=== PATIENT | female | born 2000 | race Caucasian/White ===

== ENCOUNTER 2019-07-22 19:17 | Emergency (ER) | payer BC, OTHER ==
[~2019-07-22] VITALS: Ht 165 cm; Wt 72.7 kg
[2019-07-22 19:20] VITALS: BP 145/98
--- OUTSIDE RECORDS SUMMARY | 2019-07-22 19:24 | XMS REPORT | Clinical Summary ---
Author Author Yovanny, Clarisa Christopher Organization [employer] Information Address Unknown Phone Unavailable Allergies, Adverse Reactions, Alerts Allergy Name Reaction Description Start Date Severity Status Pr ovider BENZACLIN Critical Active Uriel BOYD Conditions or Problems Problem Name Problem Code Onset Date Status Entry Date Provider Comment Standard Description Annotate ACUTE BRONCHITIS 466.0 Resolved Adrián Varghese MD Acute bronchitis FAMILY HISTORY OF HYPERTENSION V17.4 Resolved 2 Adrián Varghese MD Family history of other cardiovascular diseases OTHER SPECIFIED VIRAL WARTS 078.19 Active Adrián Varghese MD Other specified viral warts VIRAL INFECTION 079.99 Resolved Adrián Varghese MD Unspecified viral infection ACNE, CYSTIC 706.1 Active Adrián Varghese MD Other acne ALLERGIC REACTION 995.3 Active Uriel Moe A Allergy, unspecified, not elsewhere classified PALPITATIONS 785.1 Resolved Adrián Varghese MD Palpitations CERVICAL LYMPHADENOPATHY 785.6 Resolved Adrián Varghese MD Enlargement of lymph nodes CHEST DISCOMFORT 786.59 Resolved Adrián Varghese MD Other chest pain Pharyngitis-Acute 462 Inactive Adrián samuel MD Acute pharyngitis Headache 784.0 Resolved Adrián Varghese MD Headache Pharyngitis-Acute 462 Resolved Adrián samuel MD Acute pharyngitis Well Child Exam V20.2 Active Adrián Joseph Routine or child health check Myalgias 729.1 Resolved Adrián Varghese MD Myalgia and myositis, unspecified DEPRESSION 311 Inactive Adrián Varghese MD Depressive disorder, not elsewhere classified Depression, chronic, severe 296.33 Active Shannan Evans APRN Major depressive disorder, r ecurrent episode, severe degree, without mention of psychotic behavior B12 deficiency 266.2 Active Samreen Racelia Other B-complex deficiencies Muscle cramps 729.82 Resolved Adrián Varghese MD Cramp of limb Vaginal lesion 623.8 Resolved Adrián Joseph Other specified noninflammatory disorders of vagina Dermatitis, atopic 691.8 Active Cale Lopez [employer] Other atopic dermatitis and related conditions Contraceptive management V25.09 Active Madelin arguelles MD Encounter for other general counseling and advice on contraceptive management Std screening V74.5 Active Madelin Hatch MD Screening examination for venereal disease Preventive health care V70.0 Active Adrián hughes MD Routine general medical examination at a health care facility Major depressive disorder, recurrent, moderate 296.30 Active Adrián Varghese MD Major depressive dis order, recurrent episode, unspecified degree Body Mass Index 23.0-23.9 Adult Refinement 2017 Adrián Varghese MD Body Mass Index between 19-24, adult BMI 24-24.9 Active Adrián Varghese MD Body Mass Index between 19-24, adult Body Mass Index Percentile Pediatric 5th percentile to less than 85th percentile for age Active Adrián Varghese MD Body Mass Index, pediatric, 5th percentile to less than 85th percentile for age ADHD, 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 Adrián Varghese MD Attention deficit disorder of childhood with hyperactivity Restless legs 333.94 Active Adrián Varhgese MD Restless legs syndrome (RLS) Hyperlipidemia, borderline 272.4 Active 3 Adrián Varghese MD Other and unspecified hyperlipidemia FAMILY HISTORY OF HYPERTENSION ICD-V17.4 Inact sid Adrián Varghese MD VIRAL INFECTION ICD-079.99 Inactive Adrián hughes MD PALPITATIONS ICD-785.1 Inactive Adrián samuel MD CERVICAL LYMPHADENOPATHY ICD-785.6 Inactive Adrián Varghese MD CHEST DISCOMFORT ICD-786.59 Inactive Adrián leavitt MD Pharyngitis-Acute ICD-462 Inactive Adrián leavitt MD Headache ICD-784.0 Inactive Adrián Joseph Pharyngitis-Acute ICD-462 Inactive Adriná leavitt MD Myalgias ICD-729.1 Inactive Adrián Joseph Muscle cramps ICD-729.82 Inactive Adrián saldana MD Vaginal lesion ICD-623.8 Inactive Adrián saldana MD ACUTE BRONCHITIS ICD-466.0 Inactive Adrián hughes MD Medication List Medication Instructions Start Date Stop Date Generic Name NDC Status Provider Patient Instruction AMPHETAMINE-DEXTROAMPHETAMINE 20 MG ORAL TABLET take 1 tab p o qday for ADHD AMPHETAMINE-DEXTROAMPHETAMINE 96216701385 Active Adrián Varghese MD Active ULTRAM 50 MG ORAL TABLET 1 TAB PO Q 6 HRS PRN HEADACHE TRAMADOL HCL 56629032147 No Longer Active Adrián Varghese MD Acti ve METHYLPHENIDATE HCL ER (CD) 10 MG ORAL CAPSULE EXTENDE D RELEASE take 1 tab po qday for ADHD METHYLPHENIDATE HCL 05394573751 No Long er Active Adrián Varghese MD Active ABSORICA 20 MG ORAL CAPSULE 1 tablet daily ISOT RETINOIN 10721270738 No Longer Active Adrián Varghese MD Active VIIBRYD 20 MG ORAL TABLET take 1 tab po qday for mood VILAZODONE HCL 09467691212 Active PHILLIP Desir Active ESCITALOPRAM OXALATE 10 MG ORAL TABLET take 1 tab for mood 09/29 ESCITALOPRAM OXALATE 98666242968 No Longer Active Adrián Varghese MD Active BUSPIRONE HCL 7.5 MG ORAL TABLET PRN BUS PIRONE HCL 35740744574 No Longer Active Adrián Varghese MD Active PROZAC 20 MG ORAL CAPSULE PRN FLUOXETINE H CL 82634847489 No Longer Active Adrián Varghese MD Active SULFAMETHOXAZOLE-TRIMETHOPRIM 800-160 MG ORAL TABLET T QUINCY 1 TABLET BY MOUTH DAILY DIRECTED SULFAMETHOXAZOLE-TRIMETHOPRIM 07493170895 No Longer Active Madelin Hatch MD Active ACZONE 5 % EXTERNAL GEL apply once daily to face 5 DAPSONE 42482134934 No Longer Active Madelin Hatch MD Active PROZAC 10 MG ORAL CAPSULE Take 1 tab daily for 1 week. Then increase to 20mg daily. FLUOXETINE HCL 57925415702 No Longer Active Yulissa an Arell [employer] Active CITALOPRAM HYDROBROMIDE 20 MG ORAL TABLET take 1 tab p o qday for depresion and anxiety. CITALOPRAM HYDROBROMIDE 61605394640 No L onger Active Shannan Evans [employer] Active CYANOCOBALAMIN 1000 MCG/ML INJECTION SOLUTION 1 inject ion weekly for 1 month, than 1 a month for 2 months. recheck lab CYANOCO BALAMIN 97072237496 No Longer Active Shannan Evans [employer] Active ULTRAM 50 MG ORAL TABLET take 1 tab po q 6 hrs prn headache pain TRAMADOL HCL 82654243904 No Longer Active Adrián Varghese MD Active CLINDAMYCIN PHOSPHATE 2 % VAGINAL CREAM apply cream to acne BID prn CLINDAMYCIN PHOSPHATE 19223493445 No Longer Active Adrián dyson MD Active MINOCYCLINE HCL 100 MG ORAL CAPSULE take one po BID 13/11/25 MINOCYCLINE HCL 87594930603 No Longer Active Adrián Varghese MD A ctive TRI-SPRINTEC 0.18/0.215/0.25 MG-35 MCG ORAL TABLET 1 po qd a s directed NORGESTIM-ETH ESTRAD TRIPHASIC 05923988664 Active Madelin Hatch MD Active ZITHROMAX 250 MG ORAL TABLET 2 po today, then 1 po q days 2-5 20 12/07/06 AZITHROMYCIN 68027398580 No Longer Active Adrián Varghese MD Active ZITHROMAX 250 MG ORAL TABLET 2 po today, then 1 po q days 2-5 20 11/06/16 AZITHROMYCIN 88030133000 No Longer Active Adrián Varghese MD Active PREDNISONE 20 MG ORAL TABLET 2 tabs daily for 3 days, 1 tab daily for 3 days, 1/2 tab daily for 2 days PREDNISONE 40379039139 No Longer Active Adrián Varghese MD Active ZANTAC 75 75 MG ORAL TABLET take 1 po BID RANIT IDINE HCL 17843427930 No Longer Active Uriel BOYD Active BENZACLIN 1-5 % EXTERNAL GEL apply to skin BID prn for acne 2012 CLINDAMYCIN PHOS-BENZOYL PEROX 50506241437 No Longer Active Uriel BOYD Active BENZACLIN 1-5 % EXTERNAL GEL apply to skin BID prn for acne 2012 BENZACLIN 1-5 % EXTERNAL GEL 406023 CLINDAMYCIN PHOS-BE NZOYL PEROX Inactive MINOCYCLINE HCL 100 MG ORAL CAPSULE take one po BID 13/11/25 MINOCYCLINE HCL 100 MG ORAL CAPSULE 915748 MINOCYCLINE HCL Inac tive CLINDAMYCIN PHOSPHATE 2 % VAGINAL CREAM apply cream to acne BID prn CLINDAMYCIN PHOSPHATE 2 % VAGINAL CREAM 159866 CLINDAMY ANGELIA PHOSPHATE Inactive ULTRAM 50 MG ORAL TABLET take 1 tab po q 6 hrs prn headache pain ULTRAM 50 MG ORAL TABLET 055886 TRAMADOL HCL Inactiv e CYANOCOBALAMIN 1000 MCG/ML INJECTION SOLUTION 1 inject ion weekly for 1 month, than 1 a month for 2 months. recheck lab CYANOCOBALAMIN 1000 MCG/ML INJECTION SOLUTION 423899 CYANOCOBALAMIN Inactive CITALOPRAM HYDROBROMIDE 20 MG ORAL TABLET take 1 tab p o qday for depresion and anxiety. CITALOPRAM HYDROBROMIDE 20 MG ORAL TABLET 032809 CITALOPRAM HYDROBROMIDE Inactive PROZAC 10 MG ORAL CAPSULE Take 1 tab daily for 1 week. Then increase to 20mg daily. PROZAC 10 MG ORAL CAPSULE 053934 FLUOXETINE HCL Inactive ACZONE 5 % EXTERNAL GEL apply once daily to face 07/22 ACZONE 5 % EXTERNAL GEL 755878 DAPSONE Inactive SULFAMETHOXAZOLE-TRIMETHOPRIM 800-160 MG ORAL TABLET T QUINCY 1 TABLET BY MOUTH DAILY DIRECTED SULFAMETHOXAZOLE-TRI METHOPRIM 800-160 MG ORAL TABLET 620809 SULFAMETHOXAZOLE-TRIMETHOPRIM Inactive PROZAC 20 MG ORAL CAPSULE PRN PROZAC 20 MG ORAL CAPSULE 050836 FLUOXETINE HCL Inactive BUSPIRONE HCL 7.5 MG ORAL TABLET PRN BUSPIRONE HCL 7.5 MG ORAL TABLET 440233 BUSPIRONE HCL Inactive ESCITALOPRAM OXALATE 10 MG ORAL TABLET take 1 tab for mood 09/29 ESCITALOPRAM OXALATE 10 MG ORAL TABLET 962470 ESCITALOP VINCE OXALATE Inactive ABSORICA 20 MG ORAL CAPSULE 1 tablet daily ABSORICA 20 MG ORAL CAPSULE 892257 ISOTRETINOIN Inactive METHYLPHENIDATE HCL ER (CD) 10 MG ORAL CAPSULE EXTENDE D RELEASE take 1 tab po qday for ADHD METHYLPHENIDATE HCL ER (CD) 10 MG ORAL CAPSULE EXTENDED RELEASE METHYLPHENIDATE HCL Inactive ULTRAM 50 MG ORAL TABLET 1 TAB PO Q 6 HRS PRN HEADACHE ULTRAM 50 MG ORAL TABLET 002428 TRAMADOL HCL Inactive ZANTAC 75 75 MG ORAL TABLET take 1 po BID ZANTAC 75 75 MG ORAL TABLET 157230 RANITIDINE HCL Inactive PREDNISONE 20 MG ORAL TABLET 2 tabs daily for 3 days, 1 tab daily for 3 days, 1/2 tab daily for 2 days PREDNISONE 20 MG ORAL T ABLET 596054 PREDNISONE Inactive ZITHROMAX 250 MG ORAL TABLET 2 po today, then 1 po q days 2-5 20 11/06/16 ZITHROMAX 250 MG ORAL TABLET 758647 AZITHROMYCIN [place] [facility] ZITHROMAX 250 MG ORAL TABLET 2 po today, then 1 po q days 2-5 20 12/07/06 ZITHROMAX 250 MG ORAL TABLET 750706 AZITHROMYCIN [place] [facility] Advance Directives Directive Description Start Date PERMISSION TO SHARE Immunizations Vaccine Administration Date Value Standard Fernando cription DPT immunization #5 Historical oral polio vaccine (OPV) #4 Historical darcie ovirus vaccine, unspecified formulation MMR (measles, mumps, rubella) virus immunization #2 MMR DPT immunization #4 Historical Hemophilus influenza B immunization #4 Historica l Haemophilus influenzae type b vaccine, conjugate unspecified formulation MMR (measles, mumps, rubella) virus immunization #1 MMR hepatitis B vaccine #3 Historical hepatitis B vaccine, unspecified formulation Hemophilus influenza B immunization #3 Historica l Haemophilus influenzae type b vaccine, conjugate unspecified formulation oral polio vaccine (OPV) #3 Historical darcie ovirus vaccine, unspecified formulation DPT immunization #3 Historical Hemophilus influenza B immunization #2 Historica l Haemophilus influenzae type b vaccine, conjugate unspecified formulation oral polio vaccine (OPV) #2 Historical darcie ovirus vaccine, unspecified formulation DPT immunization #2 Historical hepatitis B vaccine #2 given Historical hep atitis B vaccine, unspecified formulation Hemophilus influenza B immunization #1 Historica l Haemophilus influenzae type b vaccine, conjugate unspecified formulation oral polio vaccine (OPV) #1 Historical darcie ovirus vaccine, unspecified formulation DPT immunization #1 Historical hepatitis B vaccine #1 given Historical hep atitis B vaccine, unspecified formulation Vital Signs Date Name Value Unit Range Description blood pressure, diastolic 76 mm[Hg] BP jones blood pressure, systolic 115 mm[Hg] BP sys height E&M 66 [in_us] Bdy height pulse rate E&M 81 /min Heart rate temperature E&M 98.5 [degF] Body temp erature weight E&M 151 [lb_av] Weight Measure d blood pressure, diastolic 77 mm[Hg] BP jones blood pressure, systolic 119 mm[Hg] BP sys height E&M 66 [in_us] Bdy height pulse rate E&M 73 /min Heart rate temperature E&M 98.1 [degF] Body temp erature weight E&M 152 [lb_av] Weight Measure d blood pressure, diastolic 64 mm[Hg] BP jones blood pressure, systolic 134 mm[Hg] BP sys height E&M 66 [in_us] Bdy height pulse rate E&M 88 /min Heart rate temperature E&M 97.9 [degF] Body temp erature weight E&M 152 [lb_av] Weight Measure d blood pressure, diastolic 69 mm[Hg] BP jones blood pressure, systolic 116 mm[Hg] BP sys height E&M 66 [in_us] Bdy height pulse rate E&M 63 /min Heart rate temperature E&M 97.7 [degF] Body temp erature weight E&M 143 [lb_av] Weight Measure d Diagnostic Results Date Name Value Unit Range Description Office Visit: Med Review - Chemistry HDL cholesterol, serum, target level 40 mg/dL cholesterol, target level 200 mg/dL triglyceride, target level 150 mg/dL Encounters Code Encounter Date Provider Facility CPT-20702 [id number] Vst-Est Level IV 10:34:25 C FABIANO Varghese MD [facility] CPT-53616 [id number] Vst-Est Level IV 16:46:27 C FABIANO Varghese MD [facility] CPT-36007 [id number] Vst-Est Level III 11:10:06 CDT Adrián Varghese MD [facility] CPT-68978 Level 4 Est. Patient 09:07:11 CDT Adrián dyson MD [facility] CPT-90933 Level 3 New Patient 12:59:59 CDT Madelin almodovar MD [facility] CPT-40756 Level 3 Est. Patient 10:07:39 DIGITAL MANAGER Cale morris [facility] CPT-73807 Level 3 Est. Patient 11:35:37 DIGITAL MANAGER Cale morris [facility] CPT-35310 Level 4 Est. Patient 11:10:55 CDT Shannan wilson [facility]-18210 Level 4 Est. Patient 14:07:40 CDT Shannan wilson [facility] CPT-15768 Level 4 Est. Patient 13:54:09 CDT Adrián dyson MD [facility]-58897 Level 3 Est. Patient 09:22:14 CDT Adrián dyson MD [facility]-11038 Level 3 Est. Patient 08:59:31 CDT Adrián dyson MD [facility]-82348 Level 3 Est. Patient 11:58:31 CDT Adrián dyson MD [facility]-91264 Level 3 Est. Patient 09:06:35 CDT Adrián dyson MD [facility] CPT-70454 Level 3 Est. Patient 09:18:45 CDT Adrián dyson MD [facility] CPT-15462 Level 3 Est. Patient 09:13:22 CDT Adrián dyson MD [facility] CPT-57739 Level 3 Est. Patient 18:04:31 DIGITAL MANAGER Adrián dyson MD [facility] CPT-35787 Level 4 Est. Patient 14:00:53 CDT Uriel bhatia [facility] CPT-25940 Level 3 Est. Patient 20:00:09 CDT Terry jenkins DO [facility] CPT-96573 Level 3 Est. Patient 08:45:08 CDT Uriel bhatia [facility] CPT-66613 Level 3 Est. Patient 09:09:26 CDT Uriel bhatia [facility] CPT-47232 Level 3 Est. Patient 16:32:31 CDT Adrián dyson MD [facility] CPT-61994 Level 3 Est. Patient 09:35:27 DIGITAL MANAGER Norman BOYD [facility] CPT-03346 Level 2 Est. Patient 16:51:37 DIGITAL MANAGER Adrián dyson MD [facility] CPT-26537 Level 3 Est. Patient 10:00:11 DIGITAL MANAGER Ace Arriaza MD [facility] Procedures Code Procedure Name Date Entry Date Standard Desc ription CPT-J3420 B12 Injection 16:53:03 CDT CPT-000 Give Gardasil 08:59:32 CDT CPT-000 Give Immunizations Due 08:59:32 CDT CPT-76081 First Vx - Ix admin via ID I M or jet injects without counseling by physician 09:15:14 CDT CPT-25236 Meningococcal B, recombinant vaccine 09:15:14 CDT CPT-16933 Addl Vx - Ix admin via ID IM or jet injects without counseling by physician 15:35:10 CDT CPT-67466 Meningococcal B, recombinant vaccine 15:35:10 CDT CPT-10357 First Vx - Ix admin via ID I M or jet injects without counseling by physician 15:35:10 CDT CPT-60945 Havrix Intramuscular Suspension 720 EL U /0.5ML 15:35:10 CDT CPT-12615 First Vx - Ix admin via ID I M or jet injects without counseling by physician 14:18:02 CDT CPT-81039 Gardasil 9 Intramuscular Suspension 1 4:18:02 CDT CPT-J3420 Vitamin B12 1000mcg (Cyanocobalamin) 16:30:23 CDT CPT-56543 Abx/Therapy Injection 16:30:23 CDT CPT-J3420 Vitamin B12 1000mcg (Cyanocobalamin) 16:09:42 CDT CPT-51537 Abx/Therapy Injection 16:09:42 CDT CPT-J3420 Vitamin B12 1000mcg (Cyanocobalamin) 15:22:47 CDT CPT-40487 Abx/Therapy Injection 15:22:47 CDT CPT-J3420 Vitamin B12 1000mcg (Cyanocobalamin) 17:00:35 CDT CPT-28369 Abx/Therapy Injection 17:00:35 CDT CPT-63360 First Vx - Ix admin via ID I M or jet injects without counseling by physician 16:04:17 DIGITAL MANAGER CPT-87847 Gardasil 9 Intramuscular Suspension 1 6:04:17 DIGITAL MANAGER CPT-27373 Venipuncture Draw Fee 09:40:26 CDT CPT-54480 [facility] Spot - LAB USE ONLY 09:40:26 CDT 11/30 CPT-91011 CBC with Diff - LAB USE ONLY 09:40:26 CDT 2 CPT-50591 Addl Vx - Ix admin via ID IM or jet injects without counseling by physician 09:40:21 CDT CPT-21632 Menactra Intramuscular Injectable 09:40:21 CDT CPT-49722 Addl Vx - Ix admin via ID IM or jet injects without counseling by physician 09:40:21 CDT CPT-36453 Gardasil 9 Intramuscular Suspension 0 9:40:21 CDT CPT-34154 First Vx - Ix admin via ID I M or jet injects without counseling by physician 09:40:21 CDT CPT-44161 Havrix Intramuscular Suspension 720 EL U /0.5ML 09:40:21 CDT CPT-J2930 Solu Medrol 125 mg (Methyl Prednisolone Sodium Succinate) 09:43:26 CDT CPT-63328 Abx/Therapy Injection 09:43:26 CDT CPT-J2930 Solu Medrol 125 mg (Methyl Prednisolone Sodium Succinate) 09:05:55 CDT CPT-77280 Abx/Therapy Injection 09:05:55 CDT CPT-20092 Venipuncture Draw Fee 14:01:33 CDT CPT-92671 EKG Trac and Interp 11:22:04 CDT CPT-68233 Venipuncture Draw Fee 10:53:35 CDT CPT-J2930 Solu Medrol 125 mg (Methyl Prednisolone Sodium Succinate) 09:29:26 CDT CPT-17229 Abx/Therapy Injection 09:29:26 CDT CPT-Cryo Cryotherapy 16:51:37 DIGITAL MANAGER
--- OUTSIDE RECORDS SUMMARY | 2019-07-22 19:24 | XMS REPORT | Clinical Summary ---
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 Other atopic dermatitis and related conditions Contraceptive [...] with hyperactivity Restless legs 333.94 Active Adrián Varghese MD Restless legs syndrome (RLS) Hyperlipidemia, borderline 272.4 Active 3 Adrián Varghese MD Other and unspecified hyperlipidemia ACUTE BRONCHITIS ICD-466.0 Inactive Adrián hughes MD FAMILY HISTORY OF HYPERTENSION ICD-V17.4 Inact sid Adrián Varghese MD VIRAL INFECTION ICD-079.99 Inactive Adrián hughes MD PALPITATIONS ICD-785.1 Inactive Adrián samuel MD CERVICAL LYMPHADENOPATHY ICD-785.6 Inactive Adrián Varghese MD CHEST DISCOMFORT ICD-786.59 Inactive Adrián leavitt MD Pharyngitis-Acute ICD-462 Inactive Adrián leavitt MD Headache ICD-784.0 Inactive Adrián Joseph Pharyngitis-Acute ICD-462 Inactive Adrián leavitt MD Myalgias ICD-729.1 Inactive Adrián Joseph Muscle cramps ICD-729.82 Inactive Adrián saldana MD Vaginal lesion ICD-623.8 Inactive Adrián saldana MD Medication List Medication Instructions Start Date Stop Date Generic Name NDC Status Provider Patient Instruction [id number] 20MG TAKE 1 TABLET BY MOUTH EVERY DAY FOR MOOD VILAZODONE HCL 03433261520 Active Adrián Varghese MD Active AMPHETAMINE-DEXTROAMPHETAMINE 20 MG ORAL TABLET take 1 tab p o qday for ADHD AMPHETAMINE-DEXTROAMPHETAMINE 09357766676 Active Adrián Varghese MD Active ULTRAM 50 MG ORAL TABLET 1 TAB PO Q 6 HRS PRN HEADACHE TRAMADOL HCL 44777923640 No Longer Active Adrián Varghese MD Acti ve METHYLPHENIDATE HCL ER (CD) 10 MG ORAL CAPSULE EXTENDE D RELEASE take 1 tab po qday for ADHD METHYLPHENIDATE HCL 28697016258 No Long er Active Adrián Varghese MD Active ABSORICA 20 MG ORAL CAPSULE 1 tablet daily ISOT RETINOIN 94897480555 No Longer Active Adrián Varghese MD Active ESCITALOPRAM OXALATE 10 MG ORAL TABLET take 1 tab for mood 09/29 ESCITALOPRAM OXALATE 41802644901 No Longer Active Adrián Varghese MD Active BUSPIRONE HCL 7.5 MG ORAL TABLET PRN BUS PIRONE HCL 92892118510 No Longer Active Adrián Varghese MD Active PROZAC 20 MG ORAL CAPSULE PRN FLUOXETINE H CL 80891710688 No Longer Active Adrián Varghese MD Active SULFAMETHOXAZOLE-TRIMETHOPRIM 800-160 MG ORAL TABLET T QUINCY 1 TABLET BY MOUTH DAILY DIRECTED SULFAMETHOXAZOLE-TRIMETHOPRIM 99795023880 No Longer Active Madelin Hatch MD Active ACZONE 5 % EXTERNAL GEL apply once daily to face 5 DAPSONE 41027278258 No Longer Active Madelin Hatch MD Active PROZAC 10 MG ORAL CAPSULE Take 1 tab daily for 1 week. Then increase to 20mg daily. FLUOXETINE HCL 77236455861 No Longer Active Yulissa an Arell SENIOR CIVIL ENGINEER Active CITALOPRAM HYDROBROMIDE 20 MG ORAL TABLET take 1 tab p o qday for depresion and anxiety. CITALOPRAM HYDROBROMIDE 79542172929 No L onger Active Shannan Joeykatie SENIOR CIVIL ENGINEER Active CYANOCOBALAMIN 1000 MCG/ML INJECTION SOLUTION 1 inject ion weekly for 1 month, than 1 a month for 2 months. recheck lab CYANOCO BALAMIN 88265950298 No Longer Active Shannan Cristina SENIOR CIVIL ENGINEER Active ULTRAM 50 MG ORAL TABLET take 1 tab po q 6 hrs prn headache pain TRAMADOL HCL 30992388693 No Longer Active Adrián Varghese MD Active CLINDAMYCIN PHOSPHATE 2 % VAGINAL CREAM apply cream to acne BID prn CLINDAMYCIN PHOSPHATE 98560862607 No Longer Active Adrián dyson MD Active MINOCYCLINE HCL 100 MG ORAL CAPSULE take one po BID 13/11/25 MINOCYCLINE HCL 14495352282 No Longer Active Adrián Varghese MD A ctive TRI-SPRINTEC 0.18/0.215/0.25 MG-35 MCG ORAL TABLET 1 po qd a s directed NORGESTIM-ETH ESTRAD TRIPHASIC 11985426263 Active Madelin Hatch MD Active ZITHROMAX 250 MG ORAL TABLET 2 po today, then 1 po q days 2-5 20 12/07/06 AZITHROMYCIN 73553234353 No Longer Active Adrián Varghese MD Active ZITHROMAX 250 MG ORAL TABLET 2 po today, then 1 po q days 2-5 20 11/06/16 AZITHROMYCIN 86073851998 No Longer Active Adrián Varghese MD Active PREDNISONE 20 MG ORAL TABLET 2 tabs daily for 3 days, 1 tab daily for 3 days, 1/2 tab daily for 2 days PREDNISONE 52148071327 No Longer Active Adrián Varghese MD Active ZANTAC 75 75 MG ORAL TABLET take 1 po BID RANIT IDINE HCL 30888196564 No Longer Active Uriel BOYD Active BENZACLIN 1-5 % EXTERNAL GEL apply to skin BID prn for acne 2012 CLINDAMYCIN PHOS-BENZOYL PEROX 29530637371 No Longer Active Uriel BOYD Active BENZACLIN 1-5 % EXTERNAL GEL apply to skin BID prn for acne 2012 BENZACLIN 1-5 % EXTERNAL GEL 633637 CLINDAMYCIN PHOS-BE NZOYL PEROX Inactive MINOCYCLINE HCL 100 MG ORAL CAPSULE take one po BID 13/11/25 MINOCYCLINE HCL 100 MG ORAL CAPSULE 967043 MINOCYCLINE HCL Inac tive CLINDAMYCIN PHOSPHATE 2 % VAGINAL CREAM apply cream to acne BID prn CLINDAMYCIN PHOSPHATE 2 % VAGINAL CREAM 689810 CLINDAMY ANGELIA PHOSPHATE Inactive ULTRAM 50 MG ORAL TABLET take 1 tab po q 6 hrs prn headache pain ULTRAM 50 MG ORAL TABLET 672278 TRAMADOL HCL Inactiv e CYANOCOBALAMIN 1000 MCG/ML INJECTION SOLUTION 1 inject ion weekly for 1 month, than 1 a month for 2 months. recheck lab CYANOCOBALAMIN 1000 MCG/ML INJECTION SOLUTION 214802 CYANOCOBALAMIN Inactive CITALOPRAM HYDROBROMIDE 20 MG ORAL TABLET take 1 tab p o qday for depresion and anxiety. CITALOPRAM HYDROBROMIDE 20 MG ORAL TABLET 386872 CITALOPRAM HYDROBROMIDE Inactive PROZAC 10 MG ORAL CAPSULE Take 1 tab daily for 1 week. Then increase to 20mg daily. PROZAC 10 MG ORAL CAPSULE 761963 FLUOXETINE HCL Inactive ACZONE 5 % EXTERNAL GEL apply once daily to face 07/22 ACZONE 5 % EXTERNAL GEL 157472 DAPSONE Inactive SULFAMETHOXAZOLE-TRIMETHOPRIM 800-160 MG ORAL TABLET T QUINCY 1 TABLET BY MOUTH DAILY DIRECTED SULFAMETHOXAZOLE-TRI METHOPRIM 800-160 MG ORAL TABLET 363277 SULFAMETHOXAZOLE-TRIMETHOPRIM Inactive PROZAC 20 MG ORAL CAPSULE PRN PROZAC 20 MG ORAL CAPSULE 300935 FLUOXETINE HCL Inactive BUSPIRONE HCL 7.5 MG ORAL TABLET PRN BUSPIRONE HCL 7.5 MG ORAL TABLET 436250 BUSPIRONE HCL Inactive ESCITALOPRAM OXALATE 10 MG ORAL TABLET take 1 tab for mood 09/29 ESCITALOPRAM OXALATE 10 MG ORAL TABLET 429602 ESCITALOP VINCE OXALATE Inactive ABSORICA 20 MG ORAL CAPSULE 1 tablet daily ABSORICA 20 MG ORAL CAPSULE 714920 ISOTRETINOIN Inactive METHYLPHENIDATE HCL ER (CD) 10 MG ORAL CAPSULE EXTENDE D RELEASE take 1 tab po qday for ADHD METHYLPHENIDATE HCL ER (CD) 10 MG ORAL CAPSULE EXTENDED RELEASE METHYLPHENIDATE HCL Inactive ULTRAM 50 MG ORAL TABLET 1 TAB PO Q 6 HRS PRN HEADACHE ULTRAM 50 MG ORAL TABLET 446049 TRAMADOL HCL Inactive ZANTAC 75 75 MG ORAL TABLET take 1 po BID ZANTAC 75 75 MG ORAL TABLET 815473 RANITIDINE HCL Inactive PREDNISONE 20 MG ORAL TABLET 2 tabs daily for 3 days, 1 tab daily for 3 days, 1/2 tab daily for 2 days PREDNISONE 20 MG ORAL T ABLET 906888 PREDNISONE Inactive ZITHROMAX 250 MG ORAL TABLET 2 po today, then 1 po q days 2-5 20 11/06/16 ZITHROMAX 250 MG ORAL TABLET 576515 AZITHROMYCIN [place] ctive ZITHROMAX 250 MG ORAL TABLET 2 po today, then 1 po q days 2-5 20 12/07/06 ZITHROMAX 250 MG ORAL TABLET 801489 AZITHROMYCIN [place] ctive Advance Directives Directive Description Start Date [...] #3 Historical hepatitis B vaccine, unspecified formulation DPT immunization #3 Historical Hemophilus influenza B immunization #3 Historica l Haemophilus influenzae type b vaccine, conjugate unspecified formulation oral polio vaccine (OPV) #3 Historical darcie ovirus vaccine, unspecified formulation hepatitis B vaccine #2 given Historical hep atitis B vaccine, unspecified formulation DPT immunization #2 Historical Hemophilus influenza B immunization #2 Historica l Haemophilus influenzae type b vaccine, conjugate unspecified formulation oral polio vaccine (OPV) #2 Historical darcie ovirus vaccine, unspecified formulation hepatitis B vaccine #1 given Historical hep atitis B vaccine, unspecified formulation DPT immunization #1 Historical Hemophilus influenza B immunization #1 Historica l Haemophilus influenzae type b vaccine, conjugate unspecified formulation oral polio vaccine (OPV) #1 Historical darcie ovirus vaccine, unspecified formulation Vital Signs Date Name [...] weight E&M 152 [lb_av] Weight Measure d Diagnostic Results Date Name Value Unit Range Description Office Visit: Med Review - Chemistry HDL cholesterol, serum, target level 40 mg/dL cholesterol, target level 200 mg/dL triglyceride, target level 150 mg/dL Encounters Code Encounter Date Provider Facility CPT-05416 [id number] Vst-Est Level IV 10:34:25 C DT Adrián Varghese MD [facility]-51682 [id number] Vst-Est Level IV 16:46:27 C FABIANO Varghese MD [facility]-69700 12524-Zmr Vst-Est Level III 11:10:06 CDT Adrián Varghese MD [facility]-82544 Level 4 Est. Patient 09:07:11 CDT Adrián dyson MD [facility] CPT-95190 Level 3 New Patient 12:59:59 CDT Madelin almodovar MD [facility]-01782 Level 3 Est. 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 Patient 11:10:55 CDT Shannan Are [facility] CPT-58011 Level 4 Est. Patient 14:07:40 CDT Shannan Are [facility] CPT-47344 Level 4 Est. Patient 13:54:09 CDT Adrián dyson MD [facility]-05810 Level 3 Est. Patient 09:22:14 CDT Adrián dyson MD [facility] CPT-43039 Level 3 Est. Patient 08:59:31 CDT Adrián dyson MD [facility]-65929 Level 3 Est. Patient 11:58:31 CDT Adrián dyson MD [facility] CPT-13829 Level 3 Est. Patient 09:06:35 CDT Adrián dyson MD [facility] CPT-95367 Level 3 Est. Patient 09:18:45 CDT Adrián dyson MD [facility] CPT-16675 Level 3 Est. Patient 09:13:22 CDT Adrián dyson MD [facility] CPT-92600 Level 3 Est. 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 Patient 14:00:53 CDT Uriel bhatia [facility] CPT-73393 Level 3 Est. Patient 20:00:09 CDT Terry jenkins DO [facility] CPT-21697 Level 3 Est. Patient 08:45:08 CDT Uriel Ivy sriram [facility] CPT-50041 Level 3 Est. Patient 09:09:26 CDT Uriel clarissa [facility] CPT-57729 Level 3 Est. Patient 16:32:31 CDT Adrián dyson MD [facility] CPT-33243 Level 3 Est. 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 Patient 16:51:37 FLEXOGRAPHIC PRESS PLATE SETTER Adrián dyson MD [facility] CPT-54898 Level 3 Est. Patient 10:00:11 FLEXOGRAPHIC PRESS PLATE SETTER Ace Arriaza MD [facility] Procedures Code Procedure Name Date Entry Date Standard Desc ription CPT-J3420 B12 Injection 16:53:03 CDT CPT-000 Give Gardasil 08:59:32 CDT CPT-000 Give Immunizations Due 08:59:32 CDT CPT-70548 First Vx - Ix admin via ID I M or jet injects without counseling by physician 09:15:14 CDT CPT-91977 Meningococcal B, recombinant vaccine 09:15:14 CDT CPT-65331 Addl Vx - Ix admin via ID IM or jet injects without counseling by physician 15:35:10 CDT CPT-96930 Meningococcal B, recombinant vaccine 15:35:10 CDT CPT-79040 First Vx - Ix admin via ID I M or jet injects without counseling by physician 15:35:10 CDT CPT-15378 Havrix Intramuscular Suspension 720 EL U /0.5ML 15:35:10 CDT CPT-93635 First Vx - Ix admin via ID I M or jet injects without counseling by physician 14:18:02 CDT CPT-87065 Gardasil 9 Intramuscular Suspension 1 4:18:02 CDT CPT-J3420 Vitamin B12 1000mcg (Cyanocobalamin) 16:30:23 CDT CPT-57495 Abx/Therapy Injection 16:30:23 CDT CPT-J3420 Vitamin B12 1000mcg (Cyanocobalamin) 16:09:42 CDT CPT-01751 Abx/Therapy Injection 16:09:42 CDT CPT-J3420 Vitamin B12 1000mcg (Cyanocobalamin) 15:22:47 CDT CPT-67377 Abx/Therapy Injection 15:22:47 CDT CPT-J3420 Vitamin B12 1000mcg (Cyanocobalamin) 17:00:35 CDT CPT-62224 Abx/Therapy Injection 17:00:35 CDT CPT-05559 First Vx - Ix admin via ID I M or jet injects without counseling by physician 16:04:17 FLEXOGRAPHIC PRESS PLATE SETTER CPT-86066 Gardasil 9 Intramuscular Suspension 1 6:04:17 FLEXOGRAPHIC PRESS PLATE SETTER CPT-35119 Venipuncture Draw Fee 09:40:26 CDT CPT-79440 [place] - LAB USE ONLY 09:40:26 CDT 11/30 CPT-66201 CBC with Diff - LAB USE ONLY 09:40:26 CDT 2 CPT-76027 Addl Vx - Ix admin via ID IM or jet injects without counseling by physician 09:40:21 CDT CPT-82564 Menactra Intramuscular Injectable 09:40:21 CDT CPT-98374 Addl Vx - Ix admin via ID IM or jet injects without counseling by physician 09:40:21 CDT CPT-57924 Gardasil 9 Intramuscular Suspension 0 9:40:21 CDT CPT-77595 First Vx - Ix admin via ID I M or jet injects without counseling by physician 09:40:21 CDT CPT-43098 Havrix Intramuscular Suspension 720 EL U /0.5ML 09:40:21 CDT CPT-J2930 Solu Medrol 125 mg (Methyl Prednisolone Sodium Succinate) 09:43:26 CDT CPT-17650 Abx/Therapy Injection 09:43:26 CDT CPT-J2930 Solu Medrol 125 mg (Methyl Prednisolone Sodium Succinate) 09:05:55 CDT CPT-29961 Abx/Therapy Injection 09:05:55 CDT CPT-96493 Venipuncture Draw Fee 14:01:33 CDT CPT-77578 EKG Trac and Interp 11:22:04 CDT CPT-39978 Venipuncture Draw Fee 10:53:35 CDT CPT-J2930 Solu Medrol 125 mg (Methyl Prednisolone Sodium Succinate) 09:29:26 CDT CPT-15170 Abx/Therapy Injection 09:29:26 CDT CPT-Cryo Cryotherapy 16:51:37 FLEXOGRAPHIC PRESS PLATE SETTER
--- OUTSIDE RECORDS SUMMARY | 2019-07-22 19:24 | XMS REPORT | Clinical Summary ---
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 Other atopic dermatitis and related conditions Contraceptive [...] tab p o qday for ADHD AMPHETAMINE-DEXTROAMPHETAMINE 08716164737 Active Adrián Varghese MD Active ULTRAM 50 MG ORAL TABLET 1 TAB PO Q 6 HRS PRN HEADACHE TRAMADOL HCL 08184815480 No Longer Active Adrián Varghese MD Acti ve METHYLPHENIDATE HCL ER (CD) 10 MG ORAL CAPSULE EXTENDE D RELEASE take 1 tab po qday for ADHD METHYLPHENIDATE HCL 26919707523 No Long er Active Adrián Varghese MD Active ABSORICA 20 MG ORAL CAPSULE 1 tablet daily ISOT RETINOIN 28398477129 No Longer Active Adrián Varghese MD Active VIIBRYD 20 MG ORAL TABLET take 1 tab po qday for mood VILAZODONE HCL 39621201500 Active PHILLIP Desir Active ESCITALOPRAM OXALATE 10 MG ORAL TABLET take 1 tab for mood 09/29 ESCITALOPRAM OXALATE 86443774804 No Longer Active Adrián Varghese MD Active BUSPIRONE HCL 7.5 MG ORAL TABLET PRN BUS PIRONE HCL 04111322321 No Longer Active Adrián Varghese MD Active PROZAC 20 MG ORAL CAPSULE PRN FLUOXETINE H CL 08156175809 No Longer Active Adrián Varghese MD Active SULFAMETHOXAZOLE-TRIMETHOPRIM 800-160 MG ORAL TABLET T QUINCY 1 TABLET BY MOUTH DAILY DIRECTED SULFAMETHOXAZOLE-TRIMETHOPRIM 18311697420 No Longer Active Madelin Hatch MD Active ACZONE 5 % EXTERNAL GEL apply once daily to face 5 DAPSONE 39451035507 No Longer Active Madelin Hatch MD Active PROZAC 10 MG ORAL CAPSULE Take 1 tab daily for 1 week. Then increase to 20mg daily. FLUOXETINE HCL 67319049020 No Longer Active Yulissa an Arell MANUFACTURING EXECUTIVE Active CITALOPRAM HYDROBROMIDE 20 MG ORAL TABLET take 1 tab p o qday for depresion and anxiety. CITALOPRAM HYDROBROMIDE 88950387917 No L onger Active Shannan Evans MANUFACTURING EXECUTIVE Active CYANOCOBALAMIN 1000 MCG/ML INJECTION SOLUTION 1 inject ion weekly for 1 month, than 1 a month for 2 months. recheck lab CYANOCO BALAMIN 72888978908 No Longer Active Shannan Evans MANUFACTURING EXECUTIVE Active ULTRAM 50 MG ORAL TABLET take 1 tab po q 6 hrs prn headache pain TRAMADOL HCL 93783845137 No Longer Active Adrián Varghese MD Active CLINDAMYCIN PHOSPHATE 2 % VAGINAL CREAM apply cream to acne BID prn CLINDAMYCIN PHOSPHATE 54407053293 No Longer Active Adrián dyson MD Active MINOCYCLINE HCL 100 MG ORAL CAPSULE take one po BID 13/11/25 MINOCYCLINE HCL 11619787090 No Longer Active Adrián Varghese MD A ctive TRI-SPRINTEC 0.18/0.215/0.25 MG-35 MCG ORAL TABLET 1 po qd a s directed NORGESTIM-ETH ESTRAD TRIPHASIC 44344788955 Active Madelin Hatch MD Active ZITHROMAX 250 MG ORAL TABLET 2 po today, then 1 po q days 2-5 20 12/07/06 AZITHROMYCIN 81759595343 No Longer Active Adrián Varghese MD Active ZITHROMAX 250 MG ORAL TABLET 2 po today, then 1 po q days 2-5 20 11/06/16 AZITHROMYCIN 81379968076 No Longer Active Adrián Varghese MD Active PREDNISONE 20 MG ORAL TABLET 2 tabs daily for 3 days, 1 tab daily for 3 days, 1/2 tab daily for 2 days PREDNISONE 53691745659 No Longer Active Adrián Varghese MD Active ZANTAC 75 75 MG ORAL TABLET take 1 po BID RANIT IDINE HCL 31258256844 No Longer Active Uriel BOYD Active BENZACLIN 1-5 % EXTERNAL GEL apply to skin BID prn for acne 2012 CLINDAMYCIN PHOS-BENZOYL PEROX 49256761120 No Longer Active Uriel BOYD Active BENZACLIN 1-5 % EXTERNAL GEL apply to skin BID prn for acne 2012 BENZACLIN 1-5 % EXTERNAL GEL 715010 CLINDAMYCIN PHOS-BE NZOYL PEROX Inactive MINOCYCLINE HCL 100 MG ORAL CAPSULE take one po BID 13/11/25 MINOCYCLINE HCL 100 MG ORAL CAPSULE 701884 MINOCYCLINE HCL Inac tive CLINDAMYCIN PHOSPHATE 2 % VAGINAL CREAM apply cream to acne BID prn CLINDAMYCIN PHOSPHATE 2 % VAGINAL CREAM 763435 CLINDAMY ANGELIA PHOSPHATE Inactive ULTRAM 50 MG ORAL TABLET take 1 tab po q 6 hrs prn headache pain ULTRAM 50 MG ORAL TABLET 478604 TRAMADOL HCL Inactiv e CYANOCOBALAMIN 1000 MCG/ML INJECTION SOLUTION 1 inject ion weekly for 1 month, than 1 a month for 2 months. recheck lab CYANOCOBALAMIN 1000 MCG/ML INJECTION SOLUTION 008336 CYANOCOBALAMIN Inactive CITALOPRAM HYDROBROMIDE 20 MG ORAL TABLET take 1 tab p o qday for depresion and anxiety. CITALOPRAM HYDROBROMIDE 20 MG ORAL TABLET 709969 CITALOPRAM HYDROBROMIDE Inactive PROZAC 10 MG ORAL CAPSULE Take 1 tab daily for 1 week. Then increase to 20mg daily. PROZAC 10 MG ORAL CAPSULE 582452 FLUOXETINE HCL Inactive ACZONE 5 % EXTERNAL GEL apply once daily to face 07/22 ACZONE 5 % EXTERNAL GEL 687981 DAPSONE Inactive SULFAMETHOXAZOLE-TRIMETHOPRIM 800-160 MG ORAL TABLET T QUINCY 1 TABLET BY MOUTH DAILY DIRECTED SULFAMETHOXAZOLE-TRI METHOPRIM 800-160 MG ORAL TABLET 663133 SULFAMETHOXAZOLE-TRIMETHOPRIM Inactive PROZAC 20 MG ORAL CAPSULE PRN PROZAC 20 MG ORAL CAPSULE 431661 FLUOXETINE HCL Inactive BUSPIRONE HCL 7.5 MG ORAL TABLET PRN BUSPIRONE HCL 7.5 MG ORAL TABLET 963995 BUSPIRONE HCL Inactive ESCITALOPRAM OXALATE 10 MG ORAL TABLET take 1 tab for mood 09/29 ESCITALOPRAM OXALATE 10 MG ORAL TABLET 725913 ESCITALOP VINCE OXALATE Inactive ABSORICA 20 MG ORAL CAPSULE 1 tablet daily ABSORICA 20 MG ORAL CAPSULE 613701 ISOTRETINOIN Inactive METHYLPHENIDATE HCL ER (CD) 10 MG ORAL CAPSULE EXTENDE D RELEASE take 1 tab po qday for ADHD METHYLPHENIDATE HCL ER (CD) 10 MG ORAL CAPSULE EXTENDED RELEASE METHYLPHENIDATE HCL Inactive ULTRAM 50 MG ORAL TABLET 1 TAB PO Q 6 HRS PRN HEADACHE ULTRAM 50 MG ORAL TABLET 584472 TRAMADOL HCL Inactive ZANTAC 75 75 MG ORAL TABLET take 1 po BID ZANTAC 75 75 MG ORAL TABLET 641613 RANITIDINE HCL Inactive PREDNISONE 20 MG ORAL TABLET 2 tabs daily for 3 days, 1 tab daily for 3 days, 1/2 tab daily for 2 days PREDNISONE 20 MG ORAL T ABLET 148487 PREDNISONE Inactive ZITHROMAX 250 MG ORAL TABLET 2 po today, then 1 po q days 2-5 20 11/06/16 ZITHROMAX 250 MG ORAL TABLET 586749 AZITHROMYCIN [place] ctive ZITHROMAX 250 MG ORAL TABLET 2 po today, then 1 po q days 2-5 20 12/07/06 ZITHROMAX 250 MG ORAL TABLET 613953 AZITHROMYCIN [place] ctive Advance Directives Directive Description [...] weight E&M 143 [lb_av] Weight Measure d blood pressure, diastolic 78 mm[Hg] BP jones blood pressure, systolic 125 mm[Hg] BP sys height E&M 66 [in_us] Bdy height pulse rate E&M 67 /min Heart rate temperature E&M 97.7 [degF] Body temp erature weight E&M 150 [lb_av] Weight Measure d Diagnostic Results Date Name Value Unit Range Description Lab Report: Chlamydia/GC APTIMA/96365 - Lab chlamydia DNA probe NOT DETECTED NOT DETECTED Lab Report: Chlamydia/GC [facility]TIMA/75229 - Microbiology Neisseria gonorrhoeae DNA probe NOT DETECTED NO T DETECTED Office Visit: Med Review - Chemistry HDL cholesterol, serum, target level 40 mg/dL cholesterol, target level 200 mg/dL triglyceride, target level 150 mg/dL Encounters Code Encounter Date Provider Facility CPT-91499 [id number] Vst-Est Level IV 10:34:25 C FABIANO Varghese MD [facility] CPT-05639 20504-Atr Vst-Est Level IV 16:46:27 C FABIANO Varghese MD [facility] CPT-67378 42643-Pfv Vst-Est Level III 11:10:06 CDT Adrián Varghese MD [facility]-31181 Level 4 Est. Patient 09:07:11 CDT Adrián dyson MD [facility] CPT-55717 Level 3 New Patient 12:59:59 CDT Madelin almodovar MD [facility]-14532 Level 3 Est. 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 Patient 11:35:37 STOVE FITTER Cale Edison arturo [facility]-17868 Level 4 Est. Patient 11:10:55 CDT Shannan Are [facility]-22370 Level 4 Est. Patient 14:07:40 CDT Shannan Are [facility]-85056 Level 4 Est. Patient 13:54:09 CDT Adrián dyson MD [facility]-74764 Level 3 Est. Patient 09:22:14 CDT Adrián dyson MD [facility]-43036 Level 3 Est. Patient 08:59:31 CDT Adrián dyson MD [facility]-23947 Level 3 Est. Patient 11:58:31 CDT Adrián dyson MD [facility] CPT-21804 Level 3 Est. Patient 09:06:35 CDT Adrián dyson MD [facility] CPT-69811 Level 3 Est. Patient 09:18:45 CDT Adrián dyson MD [facility] CPT-90163 Level 3 Est. Patient 09:13:22 CDT Adrián dyson MD [facility]-77047 Level 3 Est. 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 CPT-54377 Level 4 Est. Patient 14:00:53 CDT Uriel bhatia [facility] CPT-28729 Level 3 Est. Patient 20:00:09 CDT Terry jenkins DO [facility] CPT-90104 Level 3 Est. Patient 08:45:08 CDT Uriel bhatia [facility] CPT-15821 Level 3 Est. Patient 09:09:26 CDT Uriel bhatia [facility] CPT-62956 Level 3 Est. Patient 16:32:31 CDT Adrián dysno MD [facility] CPT-85036 Level 3 Est. 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 Patient 16:51:37 STOVE FITTER Adrián dyson MD [facility] CPT-21351 Level 3 Est. Patient 10:00:11 STOVE FITTER Ace Arriaza MD [facility] Procedures Code Procedure Name Date Entry Date Standard Desc ription CPT-J3420 B12 Injection 16:53:03 CDT CPT-000 Give Gardasil 08:59:32 CDT CPT-000 Give Immunizations Due 08:59:32 CDT CPT-65784 First Vx - Ix admin via ID I M or jet injects without counseling by physician 09:15:14 CDT CPT-27350 Meningococcal B, recombinant vaccine 09:15:14 CDT CPT-13905 Addl Vx - Ix admin via ID IM or jet injects without counseling by physician 15:35:10 CDT CPT-49967 Meningococcal B, recombinant vaccine 15:35:10 CDT CPT-37584 First Vx - Ix admin via ID I M or jet injects without counseling by physician 15:35:10 CDT CPT-00902 Havrix Intramuscular Suspension 720 EL U /0.5ML 15:35:10 CDT CPT-47358 First Vx - Ix admin via ID I M or jet injects without counseling by physician 14:18:02 CDT CPT-81427 Gardasil 9 Intramuscular Suspension 1 4:18:02 CDT CPT-J3420 Vitamin B12 1000mcg (Cyanocobalamin) 16:30:23 CDT CPT-77738 Abx/Therapy Injection 16:30:23 CDT CPT-J3420 Vitamin B12 1000mcg (Cyanocobalamin) 16:09:42 CDT CPT-96860 Abx/Therapy Injection 16:09:42 CDT CPT-J3420 Vitamin B12 1000mcg (Cyanocobalamin) 15:22:47 CDT CPT-14990 Abx/Therapy Injection 15:22:47 CDT CPT-J3420 Vitamin B12 1000mcg (Cyanocobalamin) 17:00:35 CDT CPT-15347 Abx/Therapy Injection 17:00:35 CDT CPT-26834 First Vx - Ix admin via ID I M or jet injects without counseling by physician 16:04:17 STOVE FITTER CPT-65518 Gardasil 9 Intramuscular Suspension 1 6:04:17 STOVE FITTER CPT-51665 Venipuncture Draw Fee 09:40:26 CDT CPT-39010 [facility] - LAB USE ONLY 09:40:26 CDT 11/30 CPT-17815 CBC with Diff - LAB USE ONLY 09:40:26 CDT 2 CPT-80752 Addl Vx - Ix admin via ID IM or jet injects without counseling by physician 09:40:21 CDT CPT-74469 Menactra Intramuscular Injectable 09:40:21 CDT CPT-48535 Addl Vx - Ix admin via ID IM or jet injects without counseling by physician 09:40:21 CDT CPT-60030 Gardasil 9 Intramuscular Suspension 0 9:40:21 CDT CPT-54444 First Vx - Ix admin via ID I M or jet injects without counseling by physician 09:40:21 CDT CPT-68333 Havrix Intramuscular Suspension 720 EL U /0.5ML 09:40:21 CDT CPT-J2930 Solu Medrol 125 mg (Methyl Prednisolone Sodium Succinate) 09:43:26 CDT CPT-14482 Abx/Therapy Injection 09:43:26 CDT CPT-J2930 Solu Medrol 125 mg (Methyl Prednisolone Sodium Succinate) 09:05:55 CDT CPT-09507 Abx/Therapy Injection 09:05:55 CDT CPT-30782 Venipuncture Draw Fee 14:01:33 CDT CPT-48902 EKG Trac and Interp 11:22:04 CDT CPT-79715 Venipuncture Draw Fee 10:53:35 CDT CPT-J2930 Solu Medrol 125 mg (Methyl Prednisolone Sodium Succinate) 09:29:26 CDT CPT-15227 Abx/Therapy Injection 09:29:26 CDT CPT-Cryo Cryotherapy 16:51:37 STOVE FITTER
--- OUTSIDE RECORDS SUMMARY | 2019-07-22 19:24 | XMS REPORT | Clinical Summary ---
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 related conditions Contraceptive [...] Inactive Adrián leavitt MD Headache ICD-784.0 Inactive Adráin Joseph Pharyngitis-Acute ICD-462 Inactive Adrián leavitt MD Myalgias ICD-729.1 Inactive Adrián Joseph Muscle cramps ICD-729.82 Inactive Adrián saldana MD Vaginal lesion ICD-623.8 Inactive Adrián saldana MD Medication List Medication Instructions Start Date Stop Date Generic Name NDC Status Provider Patient Instruction AMPHETAMINE-DEXTROAMPHETAMINE 20 MG ORAL TABLET take 1 tab p o qday for ADHD AMPHETAMINE-DEXTROAMPHETAMINE 12492725696 Active Adrián Varghese MD Active ULTRAM 50 MG ORAL TABLET 1 TAB PO Q 6 HRS PRN HEADACHE TRAMADOL HCL 37590465034 No Longer Active Adrián Varghese MD Acti ve METHYLPHENIDATE HCL ER (CD) 10 MG ORAL CAPSULE EXTENDE D RELEASE take 1 tab po qday for ADHD METHYLPHENIDATE HCL 82087352204 No Long er Active Adrián Varghese MD Active ABSORICA 20 MG ORAL CAPSULE 1 tablet daily ISOT RETINOIN 50313599667 No Longer Active Adrián Varghese MD Active VIIBRYD 20 MG ORAL TABLET take 1 tab po qday for mood VILAZODONE HCL 22918012006 Active PHILLIP Desir Active ESCITALOPRAM OXALATE 10 MG ORAL TABLET take 1 tab for mood 09/29 ESCITALOPRAM OXALATE 68994484296 No Longer Active Adrián Vraghese MD Active BUSPIRONE HCL 7.5 MG ORAL TABLET PRN BUS PIRONE HCL 88687124981 No Longer Active Adrián Varghese MD Active PROZAC 20 MG ORAL CAPSULE PRN FLUOXETINE H CL 94438219310 No Longer Active Adrián Varghese MD Active SULFAMETHOXAZOLE-TRIMETHOPRIM 800-160 MG ORAL TABLET T QUINCY 1 TABLET BY MOUTH DAILY DIRECTED SULFAMETHOXAZOLE-TRIMETHOPRIM 31860496823 No Longer Active Madelin Hatch MD Active ACZONE 5 % EXTERNAL GEL apply once daily to face 5 DAPSONE 41621380210 No Longer Active Madelin Hatch MD Active PROZAC 10 MG ORAL CAPSULE Take 1 tab daily for 1 week. Then increase to 20mg daily. FLUOXETINE HCL 32249563944 No Longer Active Yulissa an Arell TOOL PUSHER Active CITALOPRAM HYDROBROMIDE 20 MG ORAL TABLET take 1 tab p o qday for depresion and anxiety. CITALOPRAM HYDROBROMIDE 75954174172 No L onger Active Shannan Evans TOOL PUSHER Active CYANOCOBALAMIN 1000 MCG/ML INJECTION SOLUTION 1 inject ion weekly for 1 month, than 1 a month for 2 months. recheck lab CYANOCO BALAMIN 68906621843 No Longer Active Shannan Evans TOOL PUSHER Active ULTRAM 50 MG ORAL TABLET take 1 tab po q 6 hrs prn headache pain TRAMADOL HCL 03873396842 No Longer Active Adrián Varghese MD Active CLINDAMYCIN PHOSPHATE 2 % VAGINAL CREAM apply cream to acne BID prn CLINDAMYCIN PHOSPHATE 25155923109 No Longer Active Adrián dyson MD Active MINOCYCLINE HCL 100 MG ORAL CAPSULE take one po BID 13/11/25 MINOCYCLINE HCL 62824824708 No Longer Active Adrián Varghese MD A ctive TRI-SPRINTEC 0.18/0.215/0.25 MG-35 MCG ORAL TABLET 1 po qd a s directed NORGESTIM-ETH ESTRAD TRIPHASIC 53861726280 Active Madelin Hatch MD Active ZITHROMAX 250 MG ORAL TABLET 2 po today, then 1 po q days 2-5 20 12/07/06 AZITHROMYCIN 71916468618 No Longer Active Adrián Varghese MD Active ZITHROMAX 250 MG ORAL TABLET 2 po today, then 1 po q days 2-5 20 11/06/16 AZITHROMYCIN 39284782462 No Longer Active Adrián Varghese MD Active PREDNISONE 20 MG ORAL TABLET 2 tabs daily for 3 days, 1 tab daily for 3 days, 1/2 tab daily for 2 days PREDNISONE 33122593941 No Longer Active Adrián Varghese MD Active ZANTAC 75 75 MG ORAL TABLET take 1 po BID RANIT IDINE HCL 57749395120 No Longer Active Uriel BOYD Active BENZACLIN 1-5 % EXTERNAL GEL apply to skin BID prn for acne 2012 CLINDAMYCIN PHOS-BENZOYL PEROX 18675960818 No Longer Active Uriel BOYD Active BENZACLIN 1-5 % EXTERNAL GEL apply to skin BID prn for acne 2012 BENZACLIN 1-5 % EXTERNAL GEL 849458 CLINDAMYCIN PHOS-BE NZOYL PEROX Inactive MINOCYCLINE HCL 100 MG ORAL CAPSULE take one po BID 13/11/25 MINOCYCLINE HCL 100 MG ORAL CAPSULE 017386 MINOCYCLINE HCL Inac tive CLINDAMYCIN PHOSPHATE 2 % VAGINAL CREAM apply cream to acne BID prn CLINDAMYCIN PHOSPHATE 2 % VAGINAL CREAM 456263 CLINDAMY ANGELIA PHOSPHATE Inactive ULTRAM 50 MG ORAL TABLET take 1 tab po q 6 hrs prn headache pain ULTRAM 50 MG ORAL TABLET 186845 TRAMADOL HCL Inactiv e CYANOCOBALAMIN 1000 MCG/ML INJECTION SOLUTION 1 inject ion weekly for 1 month, than 1 a month for 2 months. recheck lab CYANOCOBALAMIN 1000 MCG/ML INJECTION SOLUTION 610464 CYANOCOBALAMIN Inactive CITALOPRAM HYDROBROMIDE 20 MG ORAL TABLET take 1 tab p o qday for depresion and anxiety. CITALOPRAM HYDROBROMIDE 20 MG ORAL TABLET 334076 CITALOPRAM HYDROBROMIDE Inactive PROZAC 10 MG ORAL CAPSULE Take 1 tab daily for 1 week. Then increase to 20mg daily. PROZAC 10 MG ORAL CAPSULE 040587 FLUOXETINE HCL Inactive ACZONE 5 % EXTERNAL GEL apply once daily to face 07/22 ACZONE 5 % EXTERNAL GEL 911965 DAPSONE Inactive SULFAMETHOXAZOLE-TRIMETHOPRIM 800-160 MG ORAL TABLET T QUINCY 1 TABLET BY MOUTH DAILY DIRECTED SULFAMETHOXAZOLE-TRI METHOPRIM 800-160 MG ORAL TABLET 386377 SULFAMETHOXAZOLE-TRIMETHOPRIM Inactive PROZAC 20 MG ORAL CAPSULE PRN PROZAC 20 MG ORAL CAPSULE 520505 FLUOXETINE HCL Inactive BUSPIRONE HCL 7.5 MG ORAL TABLET PRN BUSPIRONE HCL 7.5 MG ORAL TABLET 144759 BUSPIRONE HCL Inactive ESCITALOPRAM OXALATE 10 MG ORAL TABLET take 1 tab for mood 09/29 ESCITALOPRAM OXALATE 10 MG ORAL TABLET 115905 ESCITALOP VINCE OXALATE Inactive ABSORICA 20 MG ORAL CAPSULE 1 tablet daily ABSORICA 20 MG ORAL CAPSULE 009338 ISOTRETINOIN Inactive METHYLPHENIDATE HCL ER (CD) 10 MG ORAL CAPSULE EXTENDE D RELEASE take 1 tab po qday for ADHD METHYLPHENIDATE HCL ER (CD) 10 MG ORAL CAPSULE EXTENDED RELEASE METHYLPHENIDATE HCL Inactive ULTRAM 50 MG ORAL TABLET 1 TAB PO Q 6 HRS PRN HEADACHE ULTRAM 50 MG ORAL TABLET 128554 TRAMADOL HCL Inactive ZANTAC 75 75 MG ORAL TABLET take 1 po BID ZANTAC 75 75 MG ORAL TABLET 925931 RANITIDINE HCL Inactive PREDNISONE 20 MG ORAL TABLET 2 tabs daily for 3 days, 1 tab daily for 3 days, 1/2 tab daily for 2 days PREDNISONE 20 MG ORAL T ABLET 474156 PREDNISONE Inactive ZITHROMAX 250 MG ORAL TABLET 2 po today, then 1 po q days 2-5 20 11/06/16 ZITHROMAX 250 MG ORAL TABLET 483751 AZITHROMYCIN [place] ctive ZITHROMAX 250 MG ORAL TABLET 2 po today, then 1 po q days 2-5 20 12/07/06 ZITHROMAX 250 MG ORAL TABLET 169264 AZITHROMYCIN [place] ctive Advance Directives Directive Description [...] mg/dL Encounters Code Encounter Date Provider Facility CPT-25421 79523-Snq Vst-Est Level IV 10:34:25 C FABIANO Varghese MD [facility] CPT-15682 44740-Trb Vst-Est Level IV 16:46:27 C FABIANO Varghese MD [facility] CPT-00745 98631-Lmn Vst-Est Level III 11:10:06 CDT Adrián Varghese MD [facility] CPT-15045 Level 4 Est. Patient 09:07:11 CDT Adrián dyson MD [facility] CPT-57398 Level 3 New Patient 12:59:59 CDT Madelin almodovar MD [facility] CPT-05123 Level 3 Est. Patient 10:07:39 [employer] Cale morris [facility] CPT-85506 Level 3 Est. Patient 11:35:37 [employer] Cale morris [facility] CPT-32957 Level 4 Est. Patient 11:10:55 CDT Shannan wilson [facility]-45227 Level 4 Est. Patient 14:07:40 CDT Shannan wilson [facility] CPT-97934 Level 4 Est. Patient 13:54:09 CDT Adrián dyson MD [facility]-03715 Level 3 Est. Patient 09:22:14 CDT Adrián dyson MD [facility]-30545 Level 3 Est. Patient 08:59:31 CDT Adrián dyson MD [facility]-18259 Level 3 Est. Patient 11:58:31 CDT Adrián dyson MD [facility]-39718 Level 3 Est. Patient 09:06:35 CDT Adrián dyson MD [facility] CPT-27238 Level 3 Est. Patient 09:18:45 CDT Adrián dyson MD [facility] CPT-18202 Level 3 Est. Patient 09:13:22 CDT Adrián dyson MD [facility] CPT-09903 Level 3 Est. Patient 18:04:31 [employer] Adrián dyson MD [facility] CPT-83478 Level 4 Est. Patient 14:00:53 CDT Uriel bhatia [facility] CPT-84204 Level 3 Est. Patient 20:00:09 CDT Terry jenkins DO [facility] CPT-45709 Level 3 Est. Patient 08:45:08 CDT Uriel bhatia [facility] CPT-11631 Level 3 Est. Patient 09:09:26 CDT Uriel bhatia [facility] CPT-95128 Level 3 Est. Patient 16:32:31 CDT Adrián dyson MD [facility] CPT-72813 Level 3 Est. Patient 09:35:27 [employer] Norman BOYD [facility] CPT-71347 Level 2 Est. Patient 16:51:37 [employer] Adrián dyson MD [facility] CPT-37755 Level 3 Est. Patient 10:00:11 [employer] Ace Arriaza MD [facility] Procedures Code Procedure Name Date Entry Date Standard Desc ription CPT-J3420 B12 Injection 16:53:03 CDT CPT-000 Give Gardasil 08:59:32 CDT CPT-000 Give Immunizations Due 08:59:32 CDT CPT-00762 First Vx - Ix admin via ID I M or jet injects without counseling by physician 09:15:14 CDT CPT-09551 Meningococcal B, recombinant vaccine 09:15:14 CDT CPT-62104 Addl Vx - Ix admin via ID IM or jet injects without counseling by physician 15:35:10 CDT CPT-52471 Meningococcal B, recombinant vaccine 15:35:10 CDT CPT-22632 First Vx - Ix admin via ID I M or jet injects without counseling by physician 15:35:10 CDT CPT-34843 Havrix Intramuscular Suspension 720 EL U /0.5ML 15:35:10 CDT CPT-41946 First Vx - Ix admin via ID I M or jet injects without counseling by physician 14:18:02 CDT CPT-00717 Gardasil 9 Intramuscular Suspension 1 4:18:02 CDT CPT-J3420 Vitamin B12 1000mcg (Cyanocobalamin) 16:30:23 CDT CPT-15838 Abx/Therapy Injection 16:30:23 CDT CPT-J3420 Vitamin B12 1000mcg (Cyanocobalamin) 16:09:42 CDT CPT-33688 Abx/Therapy Injection 16:09:42 CDT CPT-J3420 Vitamin B12 1000mcg (Cyanocobalamin) 15:22:47 CDT CPT-69929 Abx/Therapy Injection 15:22:47 CDT CPT-J3420 Vitamin B12 1000mcg (Cyanocobalamin) 17:00:35 CDT CPT-52614 Abx/Therapy Injection 17:00:35 CDT CPT-72073 First Vx - Ix admin via ID I M or jet injects without counseling by physician 16:04:17 [employer] CPT-96987 Gardasil 9 Intramuscular Suspension 1 6:04:17 [employer] CPT-05308 Venipuncture Draw Fee 09:40:26 CDT CPT-07299 [facility] - LAB USE ONLY 09:40:26 CDT 11/30 CPT-67337 CBC with Diff - LAB USE ONLY 09:40:26 CDT 2 CPT-79964 Addl Vx - Ix admin via ID IM or jet injects without counseling by physician 09:40:21 CDT CPT-07908 Menactra Intramuscular Injectable 09:40:21 CDT CPT-49642 Addl Vx - Ix admin via ID IM or jet injects without counseling by physician 09:40:21 CDT CPT-52128 Gardasil 9 Intramuscular Suspension 0 9:40:21 CDT CPT-97622 First Vx - Ix admin via ID I M or jet injects without counseling by physician 09:40:21 CDT CPT-35297 Havrix Intramuscular Suspension 720 EL U /0.5ML 09:40:21 CDT CPT-J2930 Solu Medrol 125 mg (Methyl Prednisolone Sodium Succinate) 09:43:26 CDT CPT-42362 Abx/Therapy Injection 09:43:26 CDT CPT-J2930 Solu Medrol 125 mg (Methyl Prednisolone Sodium Succinate) 09:05:55 CDT CPT-70222 Abx/Therapy Injection 09:05:55 CDT CPT-97788 Venipuncture Draw Fee 14:01:33 CDT CPT-77592 EKG Trac and Interp 11:22:04 CDT CPT-35674 Venipuncture Draw Fee 10:53:35 CDT CPT-J2930 Solu Medrol 125 mg (Methyl Prednisolone Sodium Succinate) 09:29:26 CDT CPT-14630 Abx/Therapy Injection 09:29:26 CDT CPT-Cryo Cryotherapy 16:51:37 [employer]
--- OUTSIDE RECORDS SUMMARY | 2019-07-22 19:25 | XMS REPORT | Clinical Summary ---
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 Other atopic dermatitis and related conditions Contraceptive [...] tab p o qday for ADHD AMPHETAMINE-DEXTROAMPHETAMINE 46212241042 Active Adrián Varghese MD Active ULTRAM 50 MG ORAL TABLET 1 TAB PO Q 6 HRS PRN HEADACHE TRAMADOL HCL 05676835093 No Longer Active Adrián Varghese MD Acti ve METHYLPHENIDATE HCL ER (CD) 10 MG ORAL CAPSULE EXTENDE D RELEASE take 1 tab po qday for ADHD METHYLPHENIDATE HCL 08917742080 No Long er Active Adrián Varghese MD Active ABSORICA 20 MG ORAL CAPSULE 1 tablet daily ISOT RETINOIN 25048628737 No Longer Active Adrián Varghese MD Active VIIBRYD 20 MG ORAL TABLET take 1 tab po qday for mood VILAZODONE HCL 66079470926 Active Adrián Varghese MD Active ESCITALOPRAM OXALATE 10 MG ORAL TABLET take 1 tab for mood 09/29 ESCITALOPRAM OXALATE 22956509254 No Longer Active Adrián Varghese MD Active BUSPIRONE HCL 7.5 MG ORAL TABLET PRN BUS PIRONE HCL 95082381523 No Longer Active Adrián Varghese MD Active PROZAC 20 MG ORAL CAPSULE PRN FLUOXETINE H CL 97335729665 No Longer Active Adrián Varghese MD Active SULFAMETHOXAZOLE-TRIMETHOPRIM 800-160 MG ORAL TABLET T QUINCY 1 TABLET BY MOUTH DAILY DIRECTED SULFAMETHOXAZOLE-TRIMETHOPRIM 50118087827 No Longer Active Madelin Hatch MD Active ACZONE 5 % EXTERNAL GEL apply once daily to face 5 DAPSONE 74489157626 No Longer Active Madelin Hatch MD Active PROZAC 10 MG ORAL CAPSULE Take 1 tab daily for 1 week. Then increase to 20mg daily. FLUOXETINE HCL 10603635408 No Longer Active Yulissa an Arell OVERLAY OPERATOR Active CITALOPRAM HYDROBROMIDE 20 MG ORAL TABLET take 1 tab p o qday for depresion and anxiety. CITALOPRAM HYDROBROMIDE 17142870140 No L onger Active Shannan Evans OVERLAY OPERATOR Active CYANOCOBALAMIN 1000 MCG/ML INJECTION SOLUTION 1 inject ion weekly for 1 month, than 1 a month for 2 months. recheck lab CYANOCO BALAMIN 15250347728 No Longer Active Shannan Evans OVERLAY OPERATOR Active ULTRAM 50 MG ORAL TABLET take 1 tab po q 6 hrs prn headache pain TRAMADOL HCL 47061356238 No Longer Active Adrián Varghese MD Active CLINDAMYCIN PHOSPHATE 2 % VAGINAL CREAM apply cream to acne BID prn CLINDAMYCIN PHOSPHATE 09926479761 No Longer Active Adrián dyson MD Active MINOCYCLINE HCL 100 MG ORAL CAPSULE take one po BID 13/11/25 MINOCYCLINE HCL 06535644142 No Longer Active Adrián Varghese MD A ctive TRI-SPRINTEC 0.18/0.215/0.25 MG-35 MCG ORAL TABLET 1 po qd a s directed NORGESTIM-ETH ESTRAD TRIPHASIC 62366537781 Active Madelin Hatch MD Active ZITHROMAX 250 MG ORAL TABLET 2 po today, then 1 po q days 2-5 20 12/07/06 AZITHROMYCIN 57393443028 No Longer Active Adrián Varghese MD Active ZITHROMAX 250 MG ORAL TABLET 2 po today, then 1 po q days 2-5 20 11/06/16 AZITHROMYCIN 94139695797 No Longer Active Adrián Varghese MD Active PREDNISONE 20 MG ORAL TABLET 2 tabs daily for 3 days, 1 tab daily for 3 days, 1/2 tab daily for 2 days PREDNISONE 53471935604 No Longer Active Adrián Varghese MD Active ZANTAC 75 75 MG ORAL TABLET take 1 po BID RANIT IDINE HCL 42899577909 No Longer Active Uriel BOYD Active BENZACLIN 1-5 % EXTERNAL GEL apply to skin BID prn for acne 2012 CLINDAMYCIN PHOS-BENZOYL PEROX 56076993220 No Longer Active Uriel BOYD Active BENZACLIN 1-5 % EXTERNAL GEL apply to skin BID prn for acne 2012 BENZACLIN 1-5 % EXTERNAL GEL 930887 CLINDAMYCIN PHOS-BE NZOYL PEROX Inactive MINOCYCLINE HCL 100 MG ORAL CAPSULE take one po BID 13/11/25 MINOCYCLINE HCL 100 MG ORAL CAPSULE 062087 MINOCYCLINE HCL Inac tive CLINDAMYCIN PHOSPHATE 2 % VAGINAL CREAM apply cream to acne BID prn CLINDAMYCIN PHOSPHATE 2 % VAGINAL CREAM 172996 CLINDAMY ANGELIA PHOSPHATE Inactive ULTRAM 50 MG ORAL TABLET take 1 tab po q 6 hrs prn headache pain ULTRAM 50 MG ORAL TABLET 694532 TRAMADOL HCL Inactiv e CYANOCOBALAMIN 1000 MCG/ML INJECTION SOLUTION 1 inject ion weekly for 1 month, than 1 a month for 2 months. recheck lab CYANOCOBALAMIN 1000 MCG/ML INJECTION SOLUTION 184370 CYANOCOBALAMIN Inactive CITALOPRAM HYDROBROMIDE 20 MG ORAL TABLET take 1 tab p o qday for depresion and anxiety. CITALOPRAM HYDROBROMIDE 20 MG ORAL TABLET 523638 CITALOPRAM HYDROBROMIDE Inactive PROZAC 10 MG ORAL CAPSULE Take 1 tab daily for 1 week. Then increase to 20mg daily. PROZAC 10 MG ORAL CAPSULE 584020 FLUOXETINE HCL Inactive ACZONE 5 % EXTERNAL GEL apply once daily to face 07/22 ACZONE 5 % EXTERNAL GEL 808059 DAPSONE Inactive SULFAMETHOXAZOLE-TRIMETHOPRIM 800-160 MG ORAL TABLET T QUINCY 1 TABLET BY MOUTH DAILY DIRECTED SULFAMETHOXAZOLE-TRI METHOPRIM 800-160 MG ORAL TABLET 244847 SULFAMETHOXAZOLE-TRIMETHOPRIM Inactive PROZAC 20 MG ORAL CAPSULE PRN PROZAC 20 MG ORAL CAPSULE 829523 FLUOXETINE HCL Inactive BUSPIRONE HCL 7.5 MG ORAL TABLET PRN BUSPIRONE HCL 7.5 MG ORAL TABLET 206962 BUSPIRONE HCL Inactive ESCITALOPRAM OXALATE 10 MG ORAL TABLET take 1 tab for mood 09/29 ESCITALOPRAM OXALATE 10 MG ORAL TABLET 511284 ESCITALOP VINCE OXALATE Inactive ABSORICA 20 MG ORAL CAPSULE 1 tablet daily ABSORICA 20 MG ORAL CAPSULE 749740 ISOTRETINOIN Inactive METHYLPHENIDATE HCL ER (CD) 10 MG ORAL CAPSULE EXTENDE D RELEASE take 1 tab po qday for ADHD METHYLPHENIDATE HCL ER (CD) 10 MG ORAL CAPSULE EXTENDED RELEASE METHYLPHENIDATE HCL Inactive ULTRAM 50 MG ORAL TABLET 1 TAB PO Q 6 HRS PRN HEADACHE ULTRAM 50 MG ORAL TABLET 715813 TRAMADOL HCL Inactive ZANTAC 75 75 MG ORAL TABLET take 1 po BID ZANTAC 75 75 MG ORAL TABLET 297185 RANITIDINE HCL Inactive PREDNISONE 20 MG ORAL TABLET 2 tabs daily for 3 days, 1 tab daily for 3 days, 1/2 tab daily for 2 days PREDNISONE 20 MG ORAL T ABLET 832743 PREDNISONE Inactive ZITHROMAX 250 MG ORAL TABLET 2 po today, then 1 po q days 2-5 20 11/06/16 ZITHROMAX 250 MG ORAL TABLET 371152 AZITHROMYCIN [facility] ZITHROMAX 250 MG ORAL TABLET 2 po today, then 1 po q days 2-5 20 12/07/06 ZITHROMAX 250 MG ORAL TABLET 570881 AZITHROMYCIN [place] [facility] Advance Directives Directive Description Start Date [...] Value Unit Range Description Lab Report: Chlamydia/GC APTIMA/89682 - Lab chlamydia DNA probe NOT DETECTED NOT DETECTED Lab Report: Chlamydia/GC APTIMA/21020 - Microbiology Neisseria gonorrhoeae DNA probe NOT DETECTED NO T DETECTED Office Visit: Med Review - Chemistry HDL cholesterol, serum, target level 40 mg/dL cholesterol, target level 200 mg/dL triglyceride, target level 150 mg/dL Encounters Code Encounter Date Provider Facility CPT-42734 [id number] Vst-Est Level IV 10:34:25 C FABIANO Varghese MD [facility] CPT-84655 [id number] Vst-Est Level IV 16:46:27 C FABIANO Varghese MD [facility] CPT-48406 [id number] Vst-Est Level III 11:10:06 CDT Adrián Varghese MD [facility]-40397 Level 4 Est. Patient 09:07:11 CDT Adrián dyson MD [facility] CPT-71297 Level 3 New Patient 12:59:59 CDT Madelin almodovar MD [facility]-44578 Level 3 Est. 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 Patient 11:10:55 CDT Shannan Are [facility] [place]-68514 Level 4 Est. Patient 14:07:40 CDT Shannan Are [facility] [place]-52993 Level 4 Est. Patient 13:54:09 CDT Adrián dyson MD [facility]-08690 Level 3 Est. Patient 09:22:14 CDT Adrián dyson MD [facility]-59083 Level 3 Est. Patient 08:59:31 CDT Adrián dyson MD [facility]-84062 Level 3 Est. Patient 11:58:31 CDT Adrián dyson MD [facility] CPT-75101 Level 3 Est. Patient 09:06:35 CDT Adrián dyson MD [facility] CPT-46341 Level 3 Est. Patient 09:18:45 CDT Adrián dyson MD [facility] CPT-51649 Level 3 Est. Patient 09:13:22 CDT Adrián dyson MD [facility]-40291 Level 3 Est. 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 Patient 14:00:53 CDT Uriel bhatia [facility] CPT-94889 Level 3 Est. Patient 20:00:09 CDT Terry jenkins DO [facility] CPT-30370 Level 3 Est. Patient 08:45:08 CDT Uriel bhatia [facility] CPT-96570 Level 3 Est. Patient 09:09:26 CDT Uriel bhatia [facility] CPT-52718 Level 3 Est. Patient 16:32:31 CDT Adrián dyson MD [facility] CPT-19661 Level 3 Est. 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 Ace Arriaza MD [facility] Procedures Code Procedure Name Date Entry Date Standard Desc ription CPT-J3420 B12 Injection 16:53:03 CDT CPT-000 Give Gardasil 08:59:32 CDT CPT-000 Give Immunizations Due 08:59:32 CDT CPT-37719 First Vx - Ix admin via ID I M or jet injects without counseling by physician 09:15:14 CDT CPT-21814 Meningococcal B, recombinant vaccine 09:15:14 CDT CPT-55928 Addl Vx - Ix admin via ID IM or jet injects without counseling by physician 15:35:10 CDT CPT-60752 Meningococcal B, recombinant vaccine 15:35:10 CDT CPT-97826 First Vx - Ix admin via ID I M or jet injects without counseling by physician 15:35:10 CDT CPT-03561 Havrix Intramuscular Suspension 720 EL U /0.5ML 15:35:10 CDT CPT-59309 First Vx - Ix admin via ID I M or jet injects without counseling by physician 14:18:02 CDT CPT-53727 Gardasil 9 Intramuscular Suspension 1 4:18:02 CDT CPT-J3420 Vitamin B12 1000mcg (Cyanocobalamin) 16:30:23 CDT CPT-59601 Abx/Therapy Injection 16:30:23 CDT CPT-J3420 Vitamin B12 1000mcg (Cyanocobalamin) 16:09:42 CDT CPT-28162 Abx/Therapy Injection 16:09:42 CDT CPT-J3420 Vitamin B12 1000mcg (Cyanocobalamin) 15:22:47 CDT CPT-33297 Abx/Therapy Injection 15:22:47 CDT CPT-J3420 Vitamin B12 1000mcg (Cyanocobalamin) 17:00:35 CDT CPT-14970 Abx/Therapy Injection 17:00:35 CDT CPT-53034 First Vx - Ix admin via ID I M or jet injects without counseling by physician 16:04:17 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 CPT-42082 Gardasil 9 Intramuscular Suspension 1 6:04:17 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 CPT-12850 Venipuncture Draw Fee 09:40:26 CDT CPT-14177 [facility] - LAB USE ONLY 09:40:26 CDT 11/30 CPT-71069 CBC with Diff - LAB USE ONLY 09:40:26 CDT 2 CPT-09315 Addl Vx - Ix admin via ID IM or jet injects without counseling by physician 09:40:21 CDT CPT-18463 Menactra Intramuscular Injectable 09:40:21 CDT CPT-60420 Addl Vx - Ix admin via ID IM or jet injects without counseling by physician 09:40:21 CDT CPT-09837 Gardasil 9 Intramuscular Suspension 0 9:40:21 CDT CPT-06332 First Vx - Ix admin via ID I M or jet injects without counseling by physician 09:40:21 CDT CPT-14451 Havrix Intramuscular Suspension 720 EL U /0.5ML 09:40:21 CDT CPT-J2930 Solu Medrol 125 mg (Methyl Prednisolone Sodium Succinate) 09:43:26 CDT CPT-97048 Abx/Therapy Injection 09:43:26 CDT CPT-J2930 Solu Medrol 125 mg (Methyl Prednisolone Sodium Succinate) 09:05:55 CDT CPT-66535 Abx/Therapy Injection 09:05:55 CDT CPT-77668 Venipuncture Draw Fee 14:01:33 CDT CPT-26327 EKG Trac and Interp 11:22:04 CDT CPT-42088 Venipuncture Draw Fee 10:53:35 CDT CPT-J2930 Solu Medrol 125 mg (Methyl Prednisolone Sodium Succinate) 09:29:26 CDT CPT-45078 Abx/Therapy Injection 09:29:26 CDT CPT-Cryo Cryotherapy 16:51:37 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
--- OUTSIDE RECORDS SUMMARY | 2019-07-22 19:25 | XMS REPORT | Clinical Summary ---
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 Other atopic dermatitis and related conditions Contraceptive [...] tab p o qday for ADHD AMPHETAMINE-DEXTROAMPHETAMINE 46940543670 Active Adrián Varghese MD Active ULTRAM 50 MG ORAL TABLET 1 TAB PO Q 6 HRS PRN HEADACHE TRAMADOL HCL 25917004123 No Longer Active Adrián Varghese MD Acti ve METHYLPHENIDATE HCL ER (CD) 10 MG ORAL CAPSULE EXTENDE D RELEASE take 1 tab po qday for ADHD METHYLPHENIDATE HCL 71146977330 No Long er Active Adrián Varghese MD Active ABSORICA 20 MG ORAL CAPSULE 1 tablet daily ISOT RETINOIN 80361203122 No Longer Active Adrián Varghese MD Active VIIBRYD 20 MG ORAL TABLET take 1 tab po qday for mood VILAZODONE HCL 90132555899 Active Adrián Varghese MD Active ESCITALOPRAM OXALATE 10 MG ORAL TABLET take 1 tab for mood 09/29 ESCITALOPRAM OXALATE 17789333609 No Longer Active Adrián Varghese MD Active BUSPIRONE HCL 7.5 MG ORAL TABLET PRN BUS PIRONE HCL 91206637547 No Longer Active Adrián Varghese MD Active PROZAC 20 MG ORAL CAPSULE PRN FLUOXETINE H CL 64472550085 No Longer Active Adrián Varghese MD Active SULFAMETHOXAZOLE-TRIMETHOPRIM 800-160 MG ORAL TABLET T QUINCY 1 TABLET BY MOUTH DAILY DIRECTED SULFAMETHOXAZOLE-TRIMETHOPRIM 23201626694 No Longer Active Madelin Hatch MD Active ACZONE 5 % EXTERNAL GEL apply once daily to face 5 DAPSONE 05511528161 No Longer Active Madelin Hatch MD Active PROZAC 10 MG ORAL CAPSULE Take 1 tab daily for 1 week. Then increase to 20mg daily. FLUOXETINE HCL 07115973321 No Longer Active Yulissa an Arell DATA CENTER TECHNICIAN Active CITALOPRAM HYDROBROMIDE 20 MG ORAL TABLET take 1 tab p o qday for depresion and anxiety. CITALOPRAM HYDROBROMIDE 35529975801 No L onger Active Shannan Evans DATA CENTER TECHNICIAN Active CYANOCOBALAMIN 1000 MCG/ML INJECTION SOLUTION 1 inject ion weekly for 1 month, than 1 a month for 2 months. recheck lab CYANOCO BALAMIN 08530008853 No Longer Active Shannan Evans DATA CENTER TECHNICIAN Active ULTRAM 50 MG ORAL TABLET take 1 tab po q 6 hrs prn headache pain TRAMADOL HCL 00883199984 No Longer Active Adrián Varghese MD Active CLINDAMYCIN PHOSPHATE 2 % VAGINAL CREAM apply cream to acne BID prn CLINDAMYCIN PHOSPHATE 74960249378 No Longer Active Adrián dyson MD Active MINOCYCLINE HCL 100 MG ORAL CAPSULE take one po BID 20 13/11/25 MINOCYCLINE HCL 97618816847 No Longer Active Adrián Varghese MD A ctive TRI-SPRINTEC 0.18/0.215/0.25 MG-35 MCG ORAL TABLET 1 po qd a s directed NORGESTIM-ETH ESTRAD TRIPHASIC 98456684491 Active Madelin Hatch MD Active ZITHROMAX 250 MG ORAL TABLET 2 po today, then 1 po q days 2-5 20 12/07/06 AZITHROMYCIN 41383298633 No Longer Active Adrián Varghese MD Active ZITHROMAX 250 MG ORAL TABLET 2 po today, then 1 po q days 2-5 20 11/06/16 AZITHROMYCIN 15032620992 No Longer Active Adrián Varghese MD Active PREDNISONE 20 MG ORAL TABLET 2 tabs daily for 3 days, 1 tab daily for 3 days, 1/2 tab daily for 2 days PREDNISONE 71297421185 No Longer Active Adrián Varghese MD Active ZANTAC 75 75 MG ORAL TABLET take 1 po BID RANIT IDINE HCL 13631693682 No Longer Active Uriel BOYD Active BENZACLIN 1-5 % EXTERNAL GEL apply to skin BID prn for acne 2012 CLINDAMYCIN PHOS-BENZOYL PEROX 62116715639 No Longer Active Uriel BOYD Active BENZACLIN 1-5 % EXTERNAL GEL apply to skin BID prn for acne 2012 BENZACLIN 1-5 % EXTERNAL GEL 861017 CLINDAMYCIN PHOS-BE NZOYL PEROX Inactive MINOCYCLINE HCL 100 MG ORAL CAPSULE take one po BID 13/11/25 MINOCYCLINE HCL 100 MG ORAL CAPSULE 224263 MINOCYCLINE HCL Inac tive CLINDAMYCIN PHOSPHATE 2 % VAGINAL CREAM apply cream to acne BID prn CLINDAMYCIN PHOSPHATE 2 % VAGINAL CREAM 108010 CLINDAMY ANGELIA PHOSPHATE Inactive ULTRAM 50 MG ORAL TABLET take 1 tab po q 6 hrs prn headache pain ULTRAM 50 MG ORAL TABLET 707562 TRAMADOL HCL Inactiv e CYANOCOBALAMIN 1000 MCG/ML INJECTION SOLUTION 1 inject ion weekly for 1 month, than 1 a month for 2 months. recheck lab CYANOCOBALAMIN 1000 MCG/ML INJECTION SOLUTION 743141 CYANOCOBALAMIN Inactive CITALOPRAM HYDROBROMIDE 20 MG ORAL TABLET take 1 tab p o qday for depresion and anxiety. CITALOPRAM HYDROBROMIDE 20 MG ORAL TABLET 185399 CITALOPRAM HYDROBROMIDE Inactive PROZAC 10 MG ORAL CAPSULE Take 1 tab daily for 1 week. Then increase to 20mg daily. PROZAC 10 MG ORAL CAPSULE 626317 FLUOXETINE HCL Inactive ACZONE 5 % EXTERNAL GEL apply once daily to face 07/22 ACZONE 5 % EXTERNAL GEL 471257 DAPSONE Inactive SULFAMETHOXAZOLE-TRIMETHOPRIM 800-160 MG ORAL TABLET T QUINCY 1 TABLET BY MOUTH DAILY DIRECTED SULFAMETHOXAZOLE-TRI METHOPRIM 800-160 MG ORAL TABLET 925170 SULFAMETHOXAZOLE-TRIMETHOPRIM Inactive PROZAC 20 MG ORAL CAPSULE PRN PROZAC 20 MG ORAL CAPSULE 948386 FLUOXETINE HCL Inactive BUSPIRONE HCL 7.5 MG ORAL TABLET PRN BUSPIRONE HCL 7.5 MG ORAL TABLET 909139 BUSPIRONE HCL Inactive ESCITALOPRAM OXALATE 10 MG ORAL TABLET take 1 tab for mood 09/29 ESCITALOPRAM OXALATE 10 MG ORAL TABLET 149763 ESCITALOP VINCE OXALATE Inactive ABSORICA 20 MG ORAL CAPSULE 1 tablet daily ABSORICA 20 MG ORAL CAPSULE 655208 ISOTRETINOIN Inactive METHYLPHENIDATE HCL ER (CD) 10 MG ORAL CAPSULE EXTENDE D RELEASE take 1 tab po qday for ADHD METHYLPHENIDATE HCL ER (CD) 10 MG ORAL CAPSULE EXTENDED RELEASE METHYLPHENIDATE HCL Inactive ULTRAM 50 MG ORAL TABLET 1 TAB PO Q 6 HRS PRN HEADACHE ULTRAM 50 MG ORAL TABLET 795876 TRAMADOL HCL Inactive ZANTAC 75 75 MG ORAL TABLET take 1 po BID ZANTAC 75 75 MG ORAL TABLET 931495 RANITIDINE HCL Inactive PREDNISONE 20 MG ORAL TABLET 2 tabs daily for 3 days, 1 tab daily for 3 days, 1/2 tab daily for 2 days PREDNISONE 20 MG ORAL T ABLET 240744 PREDNISONE Inactive ZITHROMAX 250 MG ORAL TABLET 2 po today, then 1 po q days 2-5 20 11/06/16 ZITHROMAX 250 MG ORAL TABLET 639056 AZITHROMYCIN [place] ctive ZITHROMAX 250 MG ORAL TABLET 2 po today, then 1 po q days 2-5 20 12/07/06 ZITHROMAX 250 MG ORAL TABLET 183784 AZITHROMYCIN [place] [facility] Advance Directives Directive Description Start Date PERMISSION TO SHARE Immunizations Vaccine Administration Date Value Standard Fernando cription oral polio vaccine (OPV) #4 Historical darcie ovirus vaccine, unspecified formulation MMR (measles, mumps, rubella) virus immunization #2 MMR DPT immunization #5 Historical MMR (measles, mumps, rubella) virus immunization #1 MMR Hemophilus influenza B immunization #4 Historica l Haemophilus influenzae type b vaccine, conjugate unspecified formulation DPT immunization #4 Historical hepatitis B vaccine #3 Historical hepatitis B vaccine, unspecified formulation oral polio vaccine (OPV) #3 Historical darcie ovirus vaccine, unspecified formulation DPT immunization #3 Historical Hemophilus influenza B immunization #3 Historica l Haemophilus influenzae type b vaccine, conjugate unspecified formulation oral polio vaccine (OPV) #2 Historical darcie ovirus vaccine, unspecified formulation DPT immunization #2 Historical hepatitis B vaccine #2 given Historical hep atitis B vaccine, unspecified formulation Hemophilus influenza B immunization #2 Historica l Haemophilus influenzae type b vaccine, conjugate unspecified formulation oral polio vaccine (OPV) #1 Historical darcie ovirus vaccine, unspecified formulation DPT immunization #1 Historical hepatitis B vaccine #1 given Historical hep atitis B vaccine, unspecified formulation Hemophilus influenza B immunization #1 Historica l Haemophilus influenzae type b vaccine, conjugate unspecified formulation Vital Signs Date Name Value [...] Value Unit Range Description Lab Report: Chlamydia/GC APTIMA/17779 - Lab chlamydia DNA probe NOT DETECTED NOT DETECTED Lab Report: Chlamydia/GC APTIMA/80939 - Microbiology Neisseria gonorrhoeae DNA probe NOT DETECTED NO T DETECTED Office Visit: Med Review - Chemistry HDL cholesterol, serum, target level 40 mg/dL cholesterol, target level 200 mg/dL triglyceride, target level 150 mg/dL Encounters Code Encounter Date Provider Facility CPT-98566 [id number] Vst-Est Level IV 10:34:25 C FABIANO Varghese MD [facility] CPT-87074 [id number] Vst-Est Level IV 16:46:27 C FABIANO Varghese MD [facility] CPT-07826 [id number] Vst-Est Level III 11:10:06 CDT Adrián Varghese MD [facility]-54362 Level 4 Est. Patient 09:07:11 CDT Adrián dyson MD [facility] CPT-83094 Level 3 New Patient 12:59:59 CDT Madelin almodovar MD [facility]-31453 Level 3 Est. Patient 10:07:39 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 Cale morris [facility] CPT-41430 Level 3 Est. Patient 11:35:37 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 Cale Edison arturo [facility] CPT-10170 Level 4 Est. Patient 11:10:55 CDT Shannan Are [facility] CPT-47000 Level 4 Est. Patient 14:07:40 CDT Shannan Are [facility] CPT-71066 Level 4 Est. Patient 13:54:09 CDT Adrián dyson MD [facility]-74661 Level 3 Est. Patient 09:22:14 CDT Adrián dyson MD [facility]-01930 Level 3 Est. Patient 08:59:31 CDT Adrián dyson MD [facility]-53628 Level 3 Est. Patient 11:58:31 CDT Adrián dyson MD [facility] CPT-46577 Level 3 Est. Patient 09:06:35 CDT Adrián dyson MD [facility] CPT-71128 Level 3 Est. Patient 09:18:45 CDT Adrián dyson MD [facility] CPT-61928 Level 3 Est. Patient 09:13:22 CDT Adrián dyson MD [facility]-32619 Level 3 Est. Patient 18:04:31 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 Adrián dyson MD [facility] CPT-72486 Level 4 Est. Patient 14:00:53 CDT Uriel bhatia [facility] CPT-55014 Level 3 Est. Patient 20:00:09 CDT Terry jenkins DO [facility] CPT-91073 Level 3 Est. Patient 08:45:08 CDT Uriel bhatia [facility] CPT-50236 Level 3 Est. Patient 09:09:26 CDT Uriel bhatia [facility] CPT-11052 Level 3 Est. Patient 16:32:31 CDT Adrián dyson MD [facility] CPT-90547 Level 3 Est. Patient 09:35:27 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 Norman fuentes [facility] CPT-42112 Level 2 Est. Patient 16:51:37 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 Adrián dyson MD [facility] CPT-26337 Level 3 Est. Patient 10:00:11 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 Ace Arriaza MD [facility] Procedures Code Procedure Name Date Entry Date Standard Desc ription CPT-J3420 B12 Injection 16:53:03 CDT CPT-000 Give Gardasil 08:59:32 CDT CPT-000 Give Immunizations Due 08:59:32 CDT CPT-04680 First Vx - Ix admin via ID I M or jet injects without counseling by physician 09:15:14 CDT CPT-20561 Meningococcal B, recombinant vaccine 09:15:14 CDT CPT-89678 Addl Vx - Ix admin via ID IM or jet injects without counseling by physician 15:35:10 CDT CPT-58991 Meningococcal B, recombinant vaccine 15:35:10 CDT CPT-39115 First Vx - Ix admin via ID I M or jet injects without counseling by physician 15:35:10 CDT CPT-57296 Havrix Intramuscular Suspension 720 EL U /0.5ML 15:35:10 CDT CPT-22933 First Vx - Ix admin via ID I M or jet injects without counseling by physician 14:18:02 CDT CPT-28197 Gardasil 9 Intramuscular Suspension 1 4:18:02 CDT CPT-J3420 Vitamin B12 1000mcg (Cyanocobalamin) 16:30:23 CDT CPT-71502 Abx/Therapy Injection 16:30:23 CDT CPT-J3420 Vitamin B12 1000mcg (Cyanocobalamin) 16:09:42 CDT CPT-64369 Abx/Therapy Injection 16:09:42 CDT CPT-J3420 Vitamin B12 1000mcg (Cyanocobalamin) 15:22:47 CDT CPT-37650 Abx/Therapy Injection 15:22:47 CDT CPT-J3420 Vitamin B12 1000mcg (Cyanocobalamin) 17:00:35 CDT CPT-98447 Abx/Therapy Injection 17:00:35 CDT CPT-38312 First Vx - Ix admin via ID I M or jet injects without counseling by physician 16:04:17 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 CPT-36238 Gardasil 9 Intramuscular Suspension 1 6:04:17 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 CPT-07871 Venipuncture Draw Fee 09:40:26 CDT CPT-33753 [place] [facility] - LAB USE ONLY 09:40:26 CDT 11/30 CPT-23392 CBC with Diff - LAB USE ONLY 09:40:26 CDT 2 016/10/03 CPT-31602 Addl Vx - Ix admin via ID IM or jet injects without counseling by physician 09:40:21 CDT CPT-65260 Menactra Intramuscular Injectable 09:40:21 CDT CPT-47284 Addl Vx - Ix admin via ID IM or jet injects without counseling by physician 09:40:21 CDT CPT-64095 Gardasil 9 Intramuscular Suspension 0 9:40:21 CDT CPT-14372 First Vx - Ix admin via ID I M or jet injects without counseling by physician 09:40:21 CDT CPT-73641 Havrix Intramuscular Suspension 720 EL U /0.5ML 09:40:21 CDT CPT-J2930 Solu Medrol 125 mg (Methyl Prednisolone Sodium Succinate) 09:43:26 CDT CPT-11339 Abx/Therapy Injection 09:43:26 CDT CPT-J2930 Solu Medrol 125 mg (Methyl Prednisolone Sodium Succinate) 09:05:55 CDT CPT-18953 Abx/Therapy Injection 09:05:55 CDT CPT-57984 Venipuncture Draw Fee 14:01:33 CDT CPT-66160 EKG Trac and Interp 11:22:04 CDT CPT-76526 Venipuncture Draw Fee 10:53:35 CDT CPT-J2930 Solu Medrol 125 mg (Methyl Prednisolone Sodium Succinate) 09:29:26 CDT CPT-92594 Abx/Therapy Injection 09:29:26 CDT CPT-Cryo Cryotherapy 16:51:37 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
--- OUTSIDE RECORDS SUMMARY | 2019-07-22 19:25 | XMS REPORT | Clinical Summary ---
Author Author Yovanny, Clarisa Christopher Organization 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 Other atopic dermatitis and related conditions Contraceptive [...] tab p o qday for ADHD AMPHETAMINE-DEXTROAMPHETAMINE 99476713462 Active Adrián Varghese MD Active ULTRAM 50 MG ORAL TABLET 1 TAB PO Q 6 HRS PRN HEADACHE TRAMADOL HCL 96421933489 No Longer Active Adrián Varghese MD Acti ve METHYLPHENIDATE HCL ER (CD) 10 MG ORAL CAPSULE EXTENDE D RELEASE take 1 tab po qday for ADHD METHYLPHENIDATE HCL 89882247930 No Long er Active Adrián Varghese MD Active ABSORICA 20 MG ORAL CAPSULE 1 tablet daily ISOT RETINOIN 17333596629 No Longer Active Adrián Varghese MD Active VIIBRYD 20 MG ORAL TABLET take 1 tab po qday for mood VILAZODONE HCL 03464548891 Active PHILLIP Desir Active ESCITALOPRAM OXALATE 10 MG ORAL TABLET take 1 tab for mood 09/29 ESCITALOPRAM OXALATE 81365643777 No Longer Active Adrián Varghese MD Active BUSPIRONE HCL 7.5 MG ORAL TABLET PRN BUS PIRONE HCL 14720607414 No Longer Active Adrián Varghese MD Active PROZAC 20 MG ORAL CAPSULE PRN FLUOXETINE H CL 49353640729 No Longer Active Adrián Varghese MD Active SULFAMETHOXAZOLE-TRIMETHOPRIM 800-160 MG ORAL TABLET T QUINCY 1 TABLET BY MOUTH DAILY DIRECTED SULFAMETHOXAZOLE-TRIMETHOPRIM 21302708483 No Longer Active Madelin Hatch MD Active ACZONE 5 % EXTERNAL GEL apply once daily to face 5 DAPSONE 81707327925 No Longer Active Madelin Hatch MD Active PROZAC 10 MG ORAL CAPSULE Take 1 tab daily for 1 week. Then increase to 20mg daily. FLUOXETINE HCL 75490246587 No Longer Active Yulissa an Arell FELT COVERER Active CITALOPRAM HYDROBROMIDE 20 MG ORAL TABLET take 1 tab p o qday for depresion and anxiety. CITALOPRAM HYDROBROMIDE 11087990961 No L onger Active Shannan Evans FELT COVERER Active CYANOCOBALAMIN 1000 MCG/ML INJECTION SOLUTION 1 inject ion weekly for 1 month, than 1 a month for 2 months. recheck lab CYANOCO BALAMIN 21889834180 No Longer Active Shannan Evans FELT COVERER Active ULTRAM 50 MG ORAL TABLET take 1 tab po q 6 hrs prn headache pain TRAMADOL HCL 73915023313 No Longer Active Adrián Varghese MD Active CLINDAMYCIN PHOSPHATE 2 % VAGINAL CREAM apply cream to acne BID prn CLINDAMYCIN PHOSPHATE 94906865361 No Longer Active Adrián dyson MD Active MINOCYCLINE HCL 100 MG ORAL CAPSULE take one po BID 20 13/11/25 MINOCYCLINE HCL 97307936307 No Longer Active Adrián Varghese MD A ctive TRI-SPRINTEC 0.18/0.215/0.25 MG-35 MCG ORAL TABLET 1 po qd a s directed NORGESTIM-ETH ESTRAD TRIPHASIC 76281547177 Active Madelin Hatch MD Active ZITHROMAX 250 MG ORAL TABLET 2 po today, then 1 po q days 2-5 20 12/07/06 AZITHROMYCIN 61047337129 No Longer Active Adrián Varghese MD Active ZITHROMAX 250 MG ORAL TABLET 2 po today, then 1 po q days 2-5 20 11/06/16 AZITHROMYCIN 53927259366 No Longer Active Adrián Varghese MD Active PREDNISONE 20 MG ORAL TABLET 2 tabs daily for 3 days, 1 tab daily for 3 days, 1/2 tab daily for 2 days PREDNISONE 43231976646 No Longer Active Adrián Varghese MD Active ZANTAC 75 75 MG ORAL TABLET take 1 po BID RANIT IDINE HCL 73001094221 No Longer Active Uriel BOYD Active BENZACLIN 1-5 % EXTERNAL GEL apply to skin BID prn for acne 2012 CLINDAMYCIN PHOS-BENZOYL PEROX 15018335062 No Longer Active Uriel BOYD Active BENZACLIN 1-5 % EXTERNAL GEL apply to skin BID prn for acne 2012 BENZACLIN 1-5 % EXTERNAL GEL 646436 CLINDAMYCIN PHOS-BE NZOYL PEROX Inactive MINOCYCLINE HCL 100 MG ORAL CAPSULE take one po BID 13/11/25 MINOCYCLINE HCL 100 MG ORAL CAPSULE 720973 MINOCYCLINE HCL Inac tive CLINDAMYCIN PHOSPHATE 2 % VAGINAL CREAM apply cream to acne BID prn CLINDAMYCIN PHOSPHATE 2 % VAGINAL CREAM 980290 CLINDAMY ANGLEIA PHOSPHATE Inactive ULTRAM 50 MG ORAL TABLET take 1 tab po q 6 hrs prn headache pain ULTRAM 50 MG ORAL TABLET 129322 TRAMADOL HCL Inactiv e CYANOCOBALAMIN 1000 MCG/ML INJECTION SOLUTION 1 inject ion weekly for 1 month, than 1 a month for 2 months. recheck lab CYANOCOBALAMIN 1000 MCG/ML INJECTION SOLUTION 042764 CYANOCOBALAMIN Inactive CITALOPRAM HYDROBROMIDE 20 MG ORAL TABLET take 1 tab p o qday for depresion and anxiety. CITALOPRAM HYDROBROMIDE 20 MG ORAL TABLET 074106 CITALOPRAM HYDROBROMIDE Inactive PROZAC 10 MG ORAL CAPSULE Take 1 tab daily for 1 week. Then increase to 20mg daily. PROZAC 10 MG ORAL CAPSULE 809816 FLUOXETINE HCL Inactive ACZONE 5 % EXTERNAL GEL apply once daily to face 07/22 ACZONE 5 % EXTERNAL GEL 846438 DAPSONE Inactive SULFAMETHOXAZOLE-TRIMETHOPRIM 800-160 MG ORAL TABLET T QUINCY 1 TABLET BY MOUTH DAILY DIRECTED SULFAMETHOXAZOLE-TRI METHOPRIM 800-160 MG ORAL TABLET 249404 SULFAMETHOXAZOLE-TRIMETHOPRIM Inactive PROZAC 20 MG ORAL CAPSULE PRN PROZAC 20 MG ORAL CAPSULE 087805 FLUOXETINE HCL Inactive BUSPIRONE HCL 7.5 MG ORAL TABLET PRN BUSPIRONE HCL 7.5 MG ORAL TABLET 143640 BUSPIRONE HCL Inactive ESCITALOPRAM OXALATE 10 MG ORAL TABLET take 1 tab for mood 09/29 ESCITALOPRAM OXALATE 10 MG ORAL TABLET 720833 ESCITALOP VINCE OXALATE Inactive ABSORICA 20 MG ORAL CAPSULE 1 tablet daily ABSORICA 20 MG ORAL CAPSULE 875944 ISOTRETINOIN Inactive METHYLPHENIDATE HCL ER (CD) 10 MG ORAL CAPSULE EXTENDE D RELEASE take 1 tab po qday for ADHD METHYLPHENIDATE HCL ER (CD) 10 MG ORAL CAPSULE EXTENDED RELEASE METHYLPHENIDATE HCL Inactive ULTRAM 50 MG ORAL TABLET 1 TAB PO Q 6 HRS PRN HEADACHE ULTRAM 50 MG ORAL TABLET 673996 TRAMADOL HCL Inactive ZANTAC 75 75 MG ORAL TABLET take 1 po BID ZANTAC 75 75 MG ORAL TABLET 128078 RANITIDINE HCL Inactive PREDNISONE 20 MG ORAL TABLET 2 tabs daily for 3 days, 1 tab daily for 3 days, 1/2 tab daily for 2 days PREDNISONE 20 MG ORAL T ABLET 772807 PREDNISONE Inactive ZITHROMAX 250 MG ORAL TABLET 2 po today, then 1 po q days 2-5 20 11/06/16 ZITHROMAX 250 MG ORAL TABLET 944237 AZITHROMYCIN [place] ctive ZITHROMAX 250 MG ORAL TABLET 2 po today, then 1 po q days 2-5 20 12/07/06 ZITHROMAX 250 MG ORAL TABLET 251557 AZITHROMYCIN [place] ctive Advance Directives Directive Description [...] Value Unit Range Description Lab Report: Chlamydia/GC [facility]TIM[facility]/62210 - Lab chlamydia DNA probe NOT DETECTED NOT DETECTED Lab Report: Chlamydia/GC [facility]TIM[facility]/86939 - Microbiology Neisseria gonorrhoeae DNA probe NOT DETECTED NO T DETECTED Office Visit: Med Review - Chemistry HDL cholesterol, serum, target level 40 mg/dL cholesterol, target level 200 mg/dL triglyceride, target level 150 mg/dL Encounters Code Encounter Date Provider Facility CPT-36754 83579-Dwl Vst-Est Level IV 10:34:25 C FABIANO Varghese MD [facility] CPT-34393 08823-Lev Vst-Est Level IV 16:46:27 C FABIANO Varghese MD [facility] CPT-12674 01661-Kwl Vst-Est Level III 11:10:06 CDT Adrián Varghese MD [facility]-34969 Level 4 Est. Patient 09:07:11 CDT Adrián dyson MD [facility] CPT-33847 Level 3 New Patient 12:59:59 CDT Madelin almodovar MD [facility]-39473 Level 3 Est. Patient 10:07:39 GEOPHYSICS TEACHER Cale morris [facility] CPT-65563 Level 3 Est. Patient 11:35:37 GEOPHYSICS TEACHER Cale Edison arturo [facility] CPT-37426 Level 4 Est. Patient 11:10:55 CDT Shannan Are [facility] CPT-76242 Level 4 Est. Patient 14:07:40 CDT Shannan Are [facility] CPT-44367 Level 4 Est. Patient 13:54:09 CDT Adrián dyson MD [facility]-73568 Level 3 Est. Patient 09:22:14 CDT Adrián dyson MD [facility]-53495 Level 3 Est. Patient 08:59:31 CDT Adrián dyson MD [facility]-49922 Level 3 Est. Patient 11:58:31 CDT Adrián dyson MD [facility] CPT-50971 Level 3 Est. Patient 09:06:35 CDT Adrián dyson MD [facility] CPT-71406 Level 3 Est. Patient 09:18:45 CDT Adrián dyson MD [facility] CPT-46072 Level 3 Est. Patient 09:13:22 CDT Adrián dsyon MD [facility]-11743 Level 3 Est. Patient 18:04:31 GEOPHYSICS TEACHER Adrián dyson MD [facility] CPT-54218 Level 4 Est. Patient 14:00:53 CDT Uriel bhatia [facility] CPT-68695 Level 3 Est. Patient 20:00:09 CDT Terry jenkins DO [facility] CPT-33989 Level 3 Est. Patient 08:45:08 CDT Uriel bhatia [facility] CPT-45793 Level 3 Est. Patient 09:09:26 CDT [facility]riel [facility]hatia [facility] CPT-31556 Level 3 Est. Patient 16:32:31 CDT Adrián dyson MD [facility] CPT-99324 Level 3 Est. Patient 09:35:27 GEOPHYSICS TEACHER Norman fuentes [facility] CPT-45709 Level 2 Est. Patient 16:51:37 GEOPHYSICS TEACHER Adrián dyson MD [facility] CPT-94621 Level 3 Est. Patient 10:00:11 GEOPHYSICS TEACHER Ace Arriaza MD [facility] Procedures Code Procedure Name Date Entry Date Standard Desc ription CPT-J3420 B12 Injection 16:53:03 CDT CPT-000 Give Gardasil 08:59:32 CDT CPT-000 Give Immunizations Due 08:59:32 CDT CPT-53068 First Vx - Ix admin via ID I M or jet injects without counseling by physician 09:15:14 CDT CPT-59835 Meningococcal B, recombinant vaccine 09:15:14 CDT CPT-43783 Addl Vx - Ix admin via ID IM or jet injects without counseling by physician 15:35:10 CDT CPT-70361 Meningococcal B, recombinant vaccine 15:35:10 CDT CPT-49349 First Vx - Ix admin via ID I M or jet injects without counseling by physician 15:35:10 CDT CPT-50474 Havrix Intramuscular Suspension 720 EL U /0.5ML 15:35:10 CDT CPT-97994 First Vx - Ix admin via ID I M or jet injects without counseling by physician 14:18:02 CDT CPT-26848 Gardasil 9 Intramuscular Suspension 1 4:18:02 CDT CPT-J3420 Vitamin B12 1000mcg (Cyanocobalamin) 16:30:23 CDT CPT-94028 Abx/Therapy Injection 16:30:23 CDT CPT-J3420 Vitamin B12 1000mcg (Cyanocobalamin) 16:09:42 CDT CPT-71926 Abx/Therapy Injection 16:09:42 CDT CPT-J3420 Vitamin B12 1000mcg (Cyanocobalamin) 15:22:47 CDT CPT-14417 Abx/Therapy Injection 15:22:47 CDT CPT-J3420 Vitamin B12 1000mcg (Cyanocobalamin) 17:00:35 CDT CPT-53867 Abx/Therapy Injection 17:00:35 CDT CPT-75680 First Vx - Ix admin via ID I M or jet injects without counseling by physician 16:04:17 GEOPHYSICS TEACHER CPT-64745 Gardasil 9 Intramuscular Suspension 1 6:04:17 GEOPHYSICS TEACHER CPT-69050 Venipuncture Draw Fee 09:40:26 CDT CPT-88231 [place] [facility] - LAB USE ONLY 09:40:26 CDT 11/30 CPT-84669 CBC with Diff - LAB USE ONLY 09:40:26 CDT 2 016/10/03 CPT-11880 Addl Vx - Ix admin via ID IM or jet injects without counseling by physician 09:40:21 CDT CPT-25489 Menactra Intramuscular Injectable 09:40:21 CDT CPT-41834 Addl Vx - Ix admin via ID IM or jet injects without counseling by physician 09:40:21 CDT CPT-92945 Gardasil 9 Intramuscular Suspension 0 9:40:21 CDT CPT-82234 First Vx - Ix admin via ID I M or jet injects without counseling by physician 09:40:21 CDT CPT-45659 Havrix Intramuscular Suspension 720 EL U /0.5ML 09:40:21 CDT CPT-J2930 Solu Medrol 125 mg (Methyl Prednisolone Sodium Succinate) 09:43:26 CDT CPT-61939 Abx/Therapy Injection 09:43:26 CDT CPT-J2930 Solu Medrol 125 mg (Methyl Prednisolone Sodium Succinate) 09:05:55 CDT CPT-36458 Abx/Therapy Injection 09:05:55 CDT CPT-49441 Venipuncture Draw Fee 14:01:33 CDT CPT-55318 EKG Trac and Interp 11:22:04 CDT CPT-36882 Venipuncture Draw Fee 10:53:35 CDT CPT-J2930 Solu Medrol 125 mg (Methyl Prednisolone Sodium Succinate) 09:29:26 CDT CPT-92271 Abx/Therapy Injection 09:29:26 CDT CPT-Cryo Cryotherapy 16:51:37 GEOPHYSICS TEACHER
--- OUTSIDE RECORDS SUMMARY | 2019-07-22 19:25 | XMS REPORT | Clinical Summary ---
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 Other atopic dermatitis and related conditions Contraceptive [...] tab p o qday for ADHD AMPHETAMINE-DEXTROAMPHETAMINE 06106269593 Active Adrián Varghese MD Active ULTRAM 50 MG ORAL TABLET 1 TAB PO Q 6 HRS PRN HEADACHE TRAMADOL HCL 44327208051 No Longer Active Adrián Varghese MD Acti ve METHYLPHENIDATE HCL ER (CD) 10 MG ORAL CAPSULE EXTENDE D RELEASE take 1 tab po qday for ADHD METHYLPHENIDATE HCL 82052109673 No Long er Active Adrián Varghese MD Active ABSORICA 20 MG ORAL CAPSULE 1 tablet daily ISOT RETINOIN 61936250824 No Longer Active Adrián Varghese MD Active VIIBRYD 20 MG ORAL TABLET take 1 tab po qday for mood VILAZODONE HCL 06206732812 Active Adrián Varghese MD Active ESCITALOPRAM OXALATE 10 MG ORAL TABLET take 1 tab for mood 09/29 ESCITALOPRAM OXALATE 67876466191 No Longer Active Adrián Varghese MD Active BUSPIRONE HCL 7.5 MG ORAL TABLET PRN BUS PIRONE HCL 49290762463 No Longer Active Adrián Varghese MD Active PROZAC 20 MG ORAL CAPSULE PRN FLUOXETINE H CL 02309413065 No Longer Active Adrián Varghese MD Active SULFAMETHOXAZOLE-TRIMETHOPRIM 800-160 MG ORAL TABLET T QUINCY 1 TABLET BY MOUTH DAILY DIRECTED SULFAMETHOXAZOLE-TRIMETHOPRIM 88729091796 No Longer Active Madelin Hatch MD Active ACZONE 5 % EXTERNAL GEL apply once daily to face 5 DAPSONE 81550972268 No Longer Active Madelin Hatch MD Active PROZAC 10 MG ORAL CAPSULE Take 1 tab daily for 1 week. Then increase to 20mg daily. FLUOXETINE HCL 61151290227 No Longer Active Yulissa an Arell SUPERVISOR TYPE BAR AND SEGMENT Active CITALOPRAM HYDROBROMIDE 20 MG ORAL TABLET take 1 tab p o qday for depresion and anxiety. CITALOPRAM HYDROBROMIDE 42034007979 No L onger Active Shannan Evans SUPERVISOR TYPE BAR AND SEGMENT Active CYANOCOBALAMIN 1000 MCG/ML INJECTION SOLUTION 1 inject ion weekly for 1 month, than 1 a month for 2 months. recheck lab CYANOCO BALAMIN 42574051703 No Longer Active Shannan Evans SUPERVISOR TYPE BAR AND SEGMENT Active ULTRAM 50 MG ORAL TABLET take 1 tab po q 6 hrs prn headache pain TRAMADOL HCL 67676457945 No Longer Active Adrián Varghese MD Active CLINDAMYCIN PHOSPHATE 2 % VAGINAL CREAM apply cream to acne BID prn CLINDAMYCIN PHOSPHATE 06788972305 No Longer Active Adrián dyson MD Active MINOCYCLINE HCL 100 MG ORAL CAPSULE take one po BID 13/11/25 MINOCYCLINE HCL 27448534541 No Longer Active Adrián Varghese MD A ctive TRI-SPRINTEC 0.18/0.215/0.25 MG-35 MCG ORAL TABLET 1 po qd a s directed NORGESTIM-ETH ESTRAD TRIPHASIC 00771825255 Active Madelin Hatch MD Active ZITHROMAX 250 MG ORAL TABLET 2 po today, then 1 po q days 2-5 20 12/07/06 AZITHROMYCIN 41319097958 No Longer Active Adrián Varghese MD Active ZITHROMAX 250 MG ORAL TABLET 2 po today, then 1 po q days 2-5 20 11/06/16 AZITHROMYCIN 54362646537 No Longer Active Adrián Varghese MD Active PREDNISONE 20 MG ORAL TABLET 2 tabs daily for 3 days, 1 tab daily for 3 days, 1/2 tab daily for 2 days PREDNISONE 87792437581 No Longer Active Adrián Varghese MD Active ZANTAC 75 75 MG ORAL TABLET take 1 po BID RANIT IDINE HCL 09026354236 No Longer Active Uriel BOYD Active BENZACLIN 1-5 % EXTERNAL GEL apply to skin BID prn for acne 2012 CLINDAMYCIN PHOS-BENZOYL PEROX 28852788635 No Longer Active Uriel BOYD Active BENZACLIN 1-5 % EXTERNAL GEL apply to skin BID prn for acne 2012 BENZACLIN 1-5 % EXTERNAL GEL 871863 CLINDAMYCIN PHOS-BE NZOYL PEROX Inactive MINOCYCLINE HCL 100 MG ORAL CAPSULE take one po BID 13/11/25 MINOCYCLINE HCL 100 MG ORAL CAPSULE 023011 MINOCYCLINE HCL Inac tive CLINDAMYCIN PHOSPHATE 2 % VAGINAL CREAM apply cream to acne BID prn CLINDAMYCIN PHOSPHATE 2 % VAGINAL CREAM 178617 CLINDAMY ANGELIA PHOSPHATE Inactive ULTRAM 50 MG ORAL TABLET take 1 tab po q 6 hrs prn headache pain ULTRAM 50 MG ORAL TABLET 597997 TRAMADOL HCL Inactiv e CYANOCOBALAMIN 1000 MCG/ML INJECTION SOLUTION 1 inject ion weekly for 1 month, than 1 a month for 2 months. recheck lab CYANOCOBALAMIN 1000 MCG/ML INJECTION SOLUTION 830481 CYANOCOBALAMIN Inactive CITALOPRAM HYDROBROMIDE 20 MG ORAL TABLET take 1 tab p o qday for depresion and anxiety. CITALOPRAM HYDROBROMIDE 20 MG ORAL TABLET 608530 CITALOPRAM HYDROBROMIDE Inactive PROZAC 10 MG ORAL CAPSULE Take 1 tab daily for 1 week. Then increase to 20mg daily. PROZAC 10 MG ORAL CAPSULE 832316 FLUOXETINE HCL Inactive ACZONE 5 % EXTERNAL GEL apply once daily to face 07/22 ACZONE 5 % EXTERNAL GEL 307656 DAPSONE Inactive SULFAMETHOXAZOLE-TRIMETHOPRIM 800-160 MG ORAL TABLET T QUINCY 1 TABLET BY MOUTH DAILY DIRECTED SULFAMETHOXAZOLE-TRI METHOPRIM 800-160 MG ORAL TABLET 778419 SULFAMETHOXAZOLE-TRIMETHOPRIM Inactive PROZAC 20 MG ORAL CAPSULE PRN PROZAC 20 MG ORAL CAPSULE 609979 FLUOXETINE HCL Inactive BUSPIRONE HCL 7.5 MG ORAL TABLET PRN BUSPIRONE HCL 7.5 MG ORAL TABLET 287994 BUSPIRONE HCL Inactive ESCITALOPRAM OXALATE 10 MG ORAL TABLET take 1 tab for mood 09/29 ESCITALOPRAM OXALATE 10 MG ORAL TABLET 601402 ESCITALOP VINCE OXALATE Inactive ABSORICA 20 MG ORAL CAPSULE 1 tablet daily ABSORICA 20 MG ORAL CAPSULE 529572 ISOTRETINOIN Inactive METHYLPHENIDATE HCL ER (CD) 10 MG ORAL CAPSULE EXTENDE D RELEASE take 1 tab po qday for ADHD METHYLPHENIDATE HCL ER (CD) 10 MG ORAL CAPSULE EXTENDED RELEASE METHYLPHENIDATE HCL Inactive ULTRAM 50 MG ORAL TABLET 1 TAB PO Q 6 HRS PRN HEADACHE ULTRAM 50 MG ORAL TABLET 112675 TRAMADOL HCL Inactive ZANTAC 75 75 MG ORAL TABLET take 1 po BID ZANTAC 75 75 MG ORAL TABLET 550909 RANITIDINE HCL Inactive PREDNISONE 20 MG ORAL TABLET 2 tabs daily for 3 days, 1 tab daily for 3 days, 1/2 tab daily for 2 days PREDNISONE 20 MG ORAL T ABLET 873061 PREDNISONE Inactive ZITHROMAX 250 MG ORAL TABLET 2 po today, then 1 po q days 2-5 20 11/06/16 ZITHROMAX 250 MG ORAL TABLET 605368 AZITHROMYCIN [place] ctive ZITHROMAX 250 MG ORAL TABLET 2 po today, then 1 po q days 2-5 20 12/07/06 ZITHROMAX 250 MG ORAL TABLET 956938 AZITHROMYCIN [place] ctive Advance Directives Directive Description Start Date [...] Value Unit Range Description Lab Report: Chlamydia/GC APTIMA/28038 - Lab chlamydia DNA probe NOT DETECTED NOT DETECTED Lab Report: Chlamydia/GC APTIMA/14118 - Microbiology Neisseria gonorrhoeae DNA probe NOT DETECTED NO T DETECTED Office Visit: Med Review - Chemistry HDL cholesterol, serum, target level 40 mg/dL cholesterol, target level 200 mg/dL triglyceride, target level 150 mg/dL Encounters Code Encounter Date Provider Facility CPT-73579 98244-Zgl Vst-Est Level IV 10:34:25 C FABIANO Varghese MD [facility] CPT-66916 77046-Bht Vst-Est Level IV 16:46:27 C FABIANO Varghese MD [facility] CPT-45603 78604-Hdk Vst-Est Level III 11:10:06 CDT Adrián Varghese MD [facility]-17124 Level 4 Est. Patient 09:07:11 CDT Adrián dyson MD [facility] CPT-46273 Level 3 New Patient 12:59:59 CDT Madelin almodovar MD [facility]-03608 Level 3 Est. Patient 10:07:39 CRECHE ATTENDANT Cale morris [facility]-12442 Level 3 Est. Patient 11:35:37 CRECHE ATTENDANT Cale Edison arturo [facility]-92167 Level 4 Est. Patient 11:10:55 CDT Shannan Are [facility]-35133 Level 4 Est. Patient 14:07:40 CDT Shannan Are [facility]-89432 Level 4 Est. Patient 13:54:09 CDT Adrián dyson MD [facility]-28843 Level 3 Est. Patient 09:22:14 CDT Adrián dyson MD [facility]-65032 Level 3 Est. Patient 08:59:31 CDT Adrián dyson MD [facility]-64948 Level 3 Est. Patient 11:58:31 CDT Adrián dyson MD [facility] CPT-22836 Level 3 Est. Patient 09:06:35 CDT Adrián dyson MD [facility] CPT-06499 Level 3 Est. Patient 09:18:45 CDT Adrián dyson MD [facility] CPT-52808 Level 3 Est. Patient 09:13:22 CDT Adrián dyson MD [facility]-99005 Level 3 Est. Patient 18:04:31 CRECHE ATTENDANT Adrián dyson MD [facility] CPT-25503 Level 4 Est. Patient 14:00:53 CDT Uriel bhatia [facility] CPT-52182 Level 3 Est. Patient 20:00:09 CDT Terry jenkins DO [facility] CPT-61747 Level 3 Est. Patient 08:45:08 CDT Uriel bhatia [facility] CPT-50113 Level 3 Est. Patient 09:09:26 CDT Uriel bhatia [facility] CPT-60168 Level 3 Est. Patient 16:32:31 CDT Adrián dyson MD [facility] CPT-97033 Level 3 Est. Patient 09:35:27 CRECHE ATTENDANT Norman fuentes [facility] CPT-32476 Level 2 Est. Patient 16:51:37 CRECHE ATTENDANT Adrián dyson MD [facility] CPT-01765 Level 3 Est. Patient 10:00:11 CRECHE ATTENDANT Ace Arriaza MD [facility] Procedures Code Procedure Name Date Entry Date Standard Desc ription CPT-J3420 B12 Injection 16:53:03 CDT CPT-000 Give Gardasil 08:59:32 CDT CPT-000 Give Immunizations Due 08:59:32 CDT CPT-92783 First Vx - Ix admin via ID I M or jet injects without counseling by physician 09:15:14 CDT CPT-32677 Meningococcal B, recombinant vaccine 09:15:14 CDT CPT-63048 Addl Vx - Ix admin via ID IM or jet injects without counseling by physician 15:35:10 CDT CPT-81475 Meningococcal B, recombinant vaccine 15:35:10 CDT CPT-39990 First Vx - Ix admin via ID I M or jet injects without counseling by physician 15:35:10 CDT CPT-50862 Havrix Intramuscular Suspension 720 EL U /0.5ML 15:35:10 CDT CPT-32532 First Vx - Ix admin via ID I M or jet injects without counseling by physician 14:18:02 CDT CPT-92269 Gardasil 9 Intramuscular Suspension 1 4:18:02 CDT CPT-J3420 Vitamin B12 1000mcg (Cyanocobalamin) 16:30:23 CDT CPT-50296 Abx/Therapy Injection 16:30:23 CDT CPT-J3420 Vitamin B12 1000mcg (Cyanocobalamin) 16:09:42 CDT CPT-59907 Abx/Therapy Injection 16:09:42 CDT CPT-J3420 Vitamin B12 1000mcg (Cyanocobalamin) 15:22:47 CDT CPT-80495 Abx/Therapy Injection 15:22:47 CDT CPT-J3420 Vitamin B12 1000mcg (Cyanocobalamin) 17:00:35 CDT CPT-83916 Abx/Therapy Injection 17:00:35 CDT CPT-29850 First Vx - Ix admin via ID I M or jet injects without counseling by physician 16:04:17 CRECHE ATTENDANT CPT-57060 Gardasil 9 Intramuscular Suspension 1 6:04:17 CRECHE ATTENDANT CPT-01514 Venipuncture Draw Fee 09:40:26 CDT CPT-97713 [place] [facility] - LAB USE ONLY 09:40:26 CDT 11/30 CPT-05700 CBC with Diff - LAB USE ONLY 09:40:26 CDT 2 CPT-42044 Addl Vx - Ix admin via ID IM or jet injects without counseling by physician 09:40:21 CDT CPT-46962 Menactra Intramuscular Injectable 09:40:21 CDT CPT-46285 Addl Vx - Ix admin via ID IM or jet injects without counseling by physician 09:40:21 CDT CPT-22287 Gardasil 9 Intramuscular Suspension 0 9:40:21 CDT CPT-91949 First Vx - Ix admin via ID I M or jet injects without counseling by physician 09:40:21 CDT CPT-92680 Havrix Intramuscular Suspension 720 EL U /0.5ML 09:40:21 CDT CPT-J2930 Solu Medrol 125 mg (Methyl Prednisolone Sodium Succinate) 09:43:26 CDT CPT-67166 Abx/Therapy Injection 09:43:26 CDT CPT-J2930 Solu Medrol 125 mg (Methyl Prednisolone Sodium Succinate) 09:05:55 CDT CPT-26128 Abx/Therapy Injection 09:05:55 CDT CPT-34921 Venipuncture Draw Fee 14:01:33 CDT CPT-42841 EKG Trac and Interp 11:22:04 CDT CPT-20940 Venipuncture Draw Fee 10:53:35 CDT CPT-J2930 Solu Medrol 125 mg (Methyl Prednisolone Sodium Succinate) 09:29:26 CDT CPT-66577 Abx/Therapy Injection 09:29:26 CDT CPT-Cryo Cryotherapy 16:51:37 CRECHE ATTENDANT
--- OUTSIDE RECORDS SUMMARY | 2019-07-22 19:26 | XMS REPORT | Clinical Summary ---
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 Other atopic dermatitis and related conditions Contraceptive [...] tab p o qday for ADHD AMPHETAMINE-DEXTROAMPHETAMINE 40036473714 Active Adrián Varghese MD Active ULTRAM 50 MG ORAL TABLET 1 TAB PO Q 6 HRS PRN HEADACHE TRAMADOL HCL 52644100191 No Longer Active Adrián Varghese MD Acti ve METHYLPHENIDATE HCL ER (CD) 10 MG ORAL CAPSULE EXTENDE D RELEASE take 1 tab po qday for ADHD METHYLPHENIDATE HCL 79265257746 No Long er Active Adrián Varghese MD Active ABSORICA 20 MG ORAL CAPSULE 1 tablet daily ISOT RETINOIN 10922242522 No Longer Active Adrián Varghese MD Active VIIBRYD 20 MG ORAL TABLET take 1 tab po qday for mood VILAZODONE HCL 12886324126 Active Adrián Varghese MD Active ESCITALOPRAM OXALATE 10 MG ORAL TABLET take 1 tab for mood 09/29 ESCITALOPRAM OXALATE 39637871652 No Longer Active Adrián Varghese MD Active BUSPIRONE HCL 7.5 MG ORAL TABLET PRN BUS PIRONE HCL 49153951351 No Longer Active Adrián Varghese MD Active PROZAC 20 MG ORAL CAPSULE PRN FLUOXETINE H CL 15941997863 No Longer Active Adrián Varghese MD Active SULFAMETHOXAZOLE-TRIMETHOPRIM 800-160 MG ORAL TABLET T QUINCY 1 TABLET BY MOUTH DAILY DIRECTED SULFAMETHOXAZOLE-TRIMETHOPRIM 76592940903 No Longer Active Madelin Hatch MD Active ACZONE 5 % EXTERNAL GEL apply once daily to face 5 DAPSONE 40029183695 No Longer Active Madelin Hatch MD Active PROZAC 10 MG ORAL CAPSULE Take 1 tab daily for 1 week. Then increase to 20mg daily. FLUOXETINE HCL 16202391860 No Longer Active Yulissa an Arell HANDS HANGER Active CITALOPRAM HYDROBROMIDE 20 MG ORAL TABLET take 1 tab p o qday for depresion and anxiety. CITALOPRAM HYDROBROMIDE 66126086379 No L onger Active Shannan Evans HANDS HANGER Active CYANOCOBALAMIN 1000 MCG/ML INJECTION SOLUTION 1 inject ion weekly for 1 month, than 1 a month for 2 months. recheck lab CYANOCO BALAMIN 67744956572 No Longer Active Shannan Evans HANDS HANGER Active ULTRAM 50 MG ORAL TABLET take 1 tab po q 6 hrs prn headache pain TRAMADOL HCL 66933308930 No Longer Active Adrián Varghese MD Active CLINDAMYCIN PHOSPHATE 2 % VAGINAL CREAM apply cream to acne BID prn CLINDAMYCIN PHOSPHATE 15755469817 No Longer Active Adrián dyson MD Active MINOCYCLINE HCL 100 MG ORAL CAPSULE take one po BID 13/11/25 MINOCYCLINE HCL 57990099120 No Longer Active Adrián Varghese MD A ctive TRI-SPRINTEC 0.18/0.215/0.25 MG-35 MCG ORAL TABLET 1 po qd a s directed NORGESTIM-ETH ESTRAD TRIPHASIC 52144979599 Active Madelin Hatch MD Active ZITHROMAX 250 MG ORAL TABLET 2 po today, then 1 po q days 2-5 20 12/07/06 AZITHROMYCIN 38087284336 No Longer Active Adrián Varghese MD Active ZITHROMAX 250 MG ORAL TABLET 2 po today, then 1 po q days 2-5 20 11/06/16 AZITHROMYCIN 39894905907 No Longer Active Adrián Varghese MD Active PREDNISONE 20 MG ORAL TABLET 2 tabs daily for 3 days, 1 tab daily for 3 days, 1/2 tab daily for 2 days PREDNISONE 25843712130 No Longer Active Adrián Varghese MD Active ZANTAC 75 75 MG ORAL TABLET take 1 po BID RANIT IDINE HCL 19206714383 No Longer Active Uriel BOYD Active BENZACLIN 1-5 % EXTERNAL GEL apply to skin BID prn for acne 2012 CLINDAMYCIN PHOS-BENZOYL PEROX 19012350671 No Longer Active Uriel BOYD Active BENZACLIN 1-5 % EXTERNAL GEL apply to skin BID prn for acne 2012 BENZACLIN 1-5 % EXTERNAL GEL 964322 CLINDAMYCIN PHOS-BE NZOYL PEROX Inactive MINOCYCLINE HCL 100 MG ORAL CAPSULE take one po BID 13/11/25 MINOCYCLINE HCL 100 MG ORAL CAPSULE 542394 MINOCYCLINE HCL Inac tive CLINDAMYCIN PHOSPHATE 2 % VAGINAL CREAM apply cream to acne BID prn CLINDAMYCIN PHOSPHATE 2 % VAGINAL CREAM 532020 CLINDAMY ANGELIA PHOSPHATE Inactive ULTRAM 50 MG ORAL TABLET take 1 tab po q 6 hrs prn headache pain ULTRAM 50 MG ORAL TABLET 910653 TRAMADOL HCL Inactiv e CYANOCOBALAMIN 1000 MCG/ML INJECTION SOLUTION 1 inject ion weekly for 1 month, than 1 a month for 2 months. recheck lab CYANOCOBALAMIN 1000 MCG/ML INJECTION SOLUTION 851029 CYANOCOBALAMIN Inactive CITALOPRAM HYDROBROMIDE 20 MG ORAL TABLET take 1 tab p o qday for depresion and anxiety. CITALOPRAM HYDROBROMIDE 20 MG ORAL TABLET 812164 CITALOPRAM HYDROBROMIDE Inactive PROZAC 10 MG ORAL CAPSULE Take 1 tab daily for 1 week. Then increase to 20mg daily. PROZAC 10 MG ORAL CAPSULE 067678 FLUOXETINE HCL Inactive ACZONE 5 % EXTERNAL GEL apply once daily to face 07/22 ACZONE 5 % EXTERNAL GEL 714270 DAPSONE Inactive SULFAMETHOXAZOLE-TRIMETHOPRIM 800-160 MG ORAL TABLET T QUINCY 1 TABLET BY MOUTH DAILY DIRECTED SULFAMETHOXAZOLE-TRI METHOPRIM 800-160 MG ORAL TABLET 868090 SULFAMETHOXAZOLE-TRIMETHOPRIM Inactive PROZAC 20 MG ORAL CAPSULE PRN PROZAC 20 MG ORAL CAPSULE 575829 FLUOXETINE HCL Inactive BUSPIRONE HCL 7.5 MG ORAL TABLET PRN BUSPIRONE HCL 7.5 MG ORAL TABLET 656569 BUSPIRONE HCL Inactive ESCITALOPRAM OXALATE 10 MG ORAL TABLET take 1 tab for mood 09/29 ESCITALOPRAM OXALATE 10 MG ORAL TABLET 559000 ESCITALOP VINCE OXALATE Inactive ABSORICA 20 MG ORAL CAPSULE 1 tablet daily ABSORICA 20 MG ORAL CAPSULE 071839 ISOTRETINOIN Inactive METHYLPHENIDATE HCL ER (CD) 10 MG ORAL CAPSULE EXTENDE D RELEASE take 1 tab po qday for ADHD METHYLPHENIDATE HCL ER (CD) 10 MG ORAL CAPSULE EXTENDED RELEASE METHYLPHENIDATE HCL Inactive ULTRAM 50 MG ORAL TABLET 1 TAB PO Q 6 HRS PRN HEADACHE ULTRAM 50 MG ORAL TABLET 485782 TRAMADOL HCL Inactive ZANTAC 75 75 MG ORAL TABLET take 1 po BID ZANTAC 75 75 MG ORAL TABLET 256267 RANITIDINE HCL Inactive PREDNISONE 20 MG ORAL TABLET 2 tabs daily for 3 days, 1 tab daily for 3 days, 1/2 tab daily for 2 days PREDNISONE 20 MG ORAL T ABLET 933009 PREDNISONE Inactive ZITHROMAX 250 MG ORAL TABLET 2 po today, then 1 po q days 2-5 20 11/06/16 ZITHROMAX 250 MG ORAL TABLET 179183 AZITHROMYCIN [place] ctive ZITHROMAX 250 MG ORAL TABLET 2 po today, then 1 po q days 2-5 20 12/07/06 ZITHROMAX 250 MG ORAL TABLET 102872 AZITHROMYCIN [place] ctive Advance Directives Directive Description Start Date [...] Value Unit Range Description Lab Report: Chlamydia/GC APTIMA/39163 - Lab chlamydia DNA probe NOT DETECTED NOT DETECTED Lab Report: Chlamydia/GC APTIMA/19857 - Microbiology Neisseria gonorrhoeae DNA probe NOT DETECTED NO T DETECTED Office Visit: Med Review - Chemistry HDL cholesterol, serum, target level 40 mg/dL cholesterol, target level 200 mg/dL triglyceride, target level 150 mg/dL Encounters Code Encounter Date Provider Facility CPT-25666 [id number] Vst-Est Level IV 10:34:25 C FABIANO Varghese MD [facility] CPT-75734 [id number] Vst-Est Level IV 16:46:27 C FABIANO Varghese MD [facility] CPT-83904 [id number] Vst-Est Level III 11:10:06 CDT Adrián Varghese MD [facility]-94999 Level 4 Est. Patient 09:07:11 CDT Adrián dyson MD [facility] CPT-24600 Level 3 New Patient 12:59:59 CDT Madelin almodovar MD [facility]-49219 Level 3 Est. 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 Patient 11:35:37 SALESPERSON FLYING SQUAD Cale Edison arturo [facility]-41694 Level 4 Est. Patient 11:10:55 CDT Shannan Are [facility]-21873 Level 4 Est. Patient 14:07:40 CDT Shannan Are [facility]-82115 Level 4 Est. Patient 13:54:09 CDT Adrián dyson MD [facility]-50563 Level 3 Est. Patient 09:22:14 CDT Adrián dyson MD [facility]-85089 Level 3 Est. Patient 08:59:31 CDT Adrián dyson MD [facility]-67393 Level 3 Est. Patient 11:58:31 CDT Adrián dyson MD [facility] CPT-09505 Level 3 Est. Patient 09:06:35 CDT Adrián dyson MD [facility] CPT-44962 Level 3 Est. Patient 09:18:45 CDT Adrián dyson MD [facility] CPT-27212 Level 3 Est. Patient 09:13:22 CDT Adrián dyson MD [facility]-84248 Level 3 Est. Patient 18:04:31 SALESPERSON FLYING SQUAD Adrián dyson MD [facility] CPT-09508 Level 4 Est. Patient 14:00:53 CDT Uriel bhatia [facility] CPT-23446 Level 3 Est. Patient 20:00:09 CDT Terry jenkins DO [facility] CPT-72954 Level 3 Est. Patient 08:45:08 CDT Uriel bhatia [facility] CPT-79275 Level 3 Est. Patient 09:09:26 CDT Uriel bhatia [facility] CPT-94507 Level 3 Est. Patient 16:32:31 CDT Adrián dyson MD [facility] CPT-03532 Level 3 Est. Patient 09:35:27 SALESPERSON FLYING SQUAD Norman fuentes [facility] CPT-24421 Level 2 Est. Patient 16:51:37 SALESPERSON FLYING SQUAD Adrián dyson MD [facility] CPT-95021 Level 3 Est. Patient 10:00:11 SALESPERSON FLYING SQUAD Ace Arriaza MD [facility] Procedures Code Procedure Name Date Entry Date Standard Desc ription CPT-J3420 B12 Injection 16:53:03 CDT CPT-000 Give Gardasil 08:59:32 CDT CPT-000 Give Immunizations Due 08:59:32 CDT CPT-83057 First Vx - Ix admin via ID I M or jet injects without counseling by physician 09:15:14 CDT CPT-06600 Meningococcal B, recombinant vaccine 09:15:14 CDT CPT-14550 Addl Vx - Ix admin via ID IM or jet injects without counseling by physician 15:35:10 CDT CPT-98982 Meningococcal B, recombinant vaccine 15:35:10 CDT CPT-75951 First Vx - Ix admin via ID I M or jet injects without counseling by physician 15:35:10 CDT CPT-05974 Havrix Intramuscular Suspension 720 EL U /0.5ML 15:35:10 CDT CPT-65202 First Vx - Ix admin via ID I M or jet injects without counseling by physician 14:18:02 CDT CPT-00759 Gardasil 9 Intramuscular Suspension 1 4:18:02 CDT CPT-J3420 Vitamin B12 1000mcg (Cyanocobalamin) 16:30:23 CDT CPT-77799 Abx/Therapy Injection 16:30:23 CDT CPT-J3420 Vitamin B12 1000mcg (Cyanocobalamin) 16:09:42 CDT CPT-43800 Abx/Therapy Injection 16:09:42 CDT CPT-J3420 Vitamin B12 1000mcg (Cyanocobalamin) 15:22:47 CDT CPT-33205 Abx/Therapy Injection 15:22:47 CDT CPT-J3420 Vitamin B12 1000mcg (Cyanocobalamin) 17:00:35 CDT CPT-02656 Abx/Therapy Injection 17:00:35 CDT CPT-84507 First Vx - Ix admin via ID I M or jet injects without counseling by physician 16:04:17 SALESPERSON FLYING SQUAD CPT-64814 Gardasil 9 Intramuscular Suspension 1 6:04:17 SALESPERSON FLYING SQUAD CPT-76177 Venipuncture Draw Fee 09:40:26 CDT CPT-91473 [place] [facility] - LAB USE ONLY 09:40:26 CDT 11/30 CPT-27379 CBC with Diff - LAB USE ONLY 09:40:26 CDT 2 CPT-39374 Addl Vx - Ix admin via ID IM or jet injects without counseling by physician 09:40:21 CDT CPT-39918 Menactra Intramuscular Injectable 09:40:21 CDT CPT-78176 Addl Vx - Ix admin via ID IM or jet injects without counseling by physician 09:40:21 CDT CPT-22873 Gardasil 9 Intramuscular Suspension 0 9:40:21 CDT CPT-51554 First Vx - Ix admin via ID I M or jet injects without counseling by physician 09:40:21 CDT CPT-14162 Havrix Intramuscular Suspension 720 EL U /0.5ML 09:40:21 CDT CPT-J2930 Solu Medrol 125 mg (Methyl Prednisolone Sodium Succinate) 09:43:26 CDT CPT-30605 Abx/Therapy Injection 09:43:26 CDT CPT-J2930 Solu Medrol 125 mg (Methyl Prednisolone Sodium Succinate) 09:05:55 CDT CPT-16143 Abx/Therapy Injection 09:05:55 CDT CPT-63690 Venipuncture Draw Fee 14:01:33 CDT CPT-01449 EKG Trac and Interp 11:22:04 CDT CPT-99228 Venipuncture Draw Fee 10:53:35 CDT CPT-J2930 Solu Medrol 125 mg (Methyl Prednisolone Sodium Succinate) 09:29:26 CDT CPT-10093 Abx/Therapy Injection 09:29:26 CDT CPT-Cryo Cryotherapy 16:51:37 SALESPERSON FLYING SQUAD
--- OUTSIDE RECORDS SUMMARY | 2019-07-22 19:26 | XMS REPORT | Clinical Summary ---
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 Other atopic dermatitis and related conditions Contraceptive [...] Generic Name NDC Status Provider Patient Instruction METHYLPHENIDATE HCL ER (CD) 10 MG ORAL CAPSULE EXTENDE D RELEASE take 1 tab po qday for ADHD METHYLPHENIDATE HCL 74158050559 Active D anshu Varghese MD Active ABSORICA 20 MG ORAL CAPSULE 1 tablet daily ISOT RETINOIN 30683088767 No Longer Active Adrián Varghese MD Active VIIBRYD 20 MG ORAL TABLET take 1 tab po qday for mood VILAZODONE HCL 32560810060 Active Adrián Varghese MD Active ESCITALOPRAM OXALATE 10 MG ORAL TABLET take 1 tab for mood 09/29 ESCITALOPRAM OXALATE 20398186155 No Longer Active Adrián Varghese MD Active BUSPIRONE HCL 7.5 MG ORAL TABLET PRN BUS PIRONE HCL 77569968970 No Longer Active Adrián Varghese MD Active PROZAC 20 MG ORAL CAPSULE PRN FLUOXETINE H CL 18508547404 No Longer Active Adrián Varghese MD Active SULFAMETHOXAZOLE-TRIMETHOPRIM 800-160 MG ORAL TABLET T QUINCY 1 TABLET BY MOUTH DAILY DIRECTED SULFAMETHOXAZOLE-TRIMETHOPRIM 71349417943 No Longer Active Madelin Hatch MD Active ACZONE 5 % EXTERNAL GEL apply once daily to face 5 DAPSONE 94733105989 No Longer Active Madelin Hatch MD Active PROZAC 10 MG ORAL CAPSULE Take 1 tab daily for 1 week. Then increase to 20mg daily. FLUOXETINE HCL 00345378923 No Longer Active Yulissa Evans APRN Active CITALOPRAM HYDROBROMIDE 20 MG ORAL TABLET take 1 tab p o qday for depresion and anxiety. CITALOPRAM HYDROBROMIDE 37971675738 No L onger Active Shannan Evans APRN Active CYANOCOBALAMIN 1000 MCG/ML INJECTION SOLUTION 1 inject ion weekly for 1 month, than 1 a month for 2 months. recheck lab CYANOCO BALAMIN 30676261165 No Longer Active Shannan Evans APRN Active ULTRAM 50 MG ORAL TABLET 1 TAB PO Q 6 HRS PRN HEADACHE TRAMADOL HCL 56039596773 Active Adrián Varghese MD Active ULTRAM 50 MG ORAL TABLET take 1 tab po q 6 hrs prn headache pain TRAMADOL HCL 29903381040 No Longer Active Adrián Varghese MD Active CLINDAMYCIN PHOSPHATE 2 % VAGINAL CREAM apply cream to acne BID prn CLINDAMYCIN PHOSPHATE 27182490686 No Longer Active Adrián dyson MD Active MINOCYCLINE HCL 100 MG ORAL CAPSULE take one po BID 20 13/11/25 MINOCYCLINE HCL 97015985856 No Longer Active Adrián Varghese MD A ctive TRI-SPRINTEC 0.18/0.215/0.25 MG-35 MCG ORAL TABLET 1 po qd a s directed NORGESTIM-ETH ESTRAD TRIPHASIC 98701896991 Active Madelin Hatch MD Active ZITHROMAX 250 MG ORAL TABLET 2 po today, then 1 po q days 2-5 20 12/07/06 AZITHROMYCIN 53697651423 No Longer Active Adrián Varghese MD Active ZITHROMAX 250 MG ORAL TABLET 2 po today, then 1 po q days 2-5 20 11/06/16 AZITHROMYCIN 74805422117 No Longer Active Adrián Varghese MD Active PREDNISONE 20 MG ORAL TABLET 2 tabs daily for 3 days, 1 tab daily for 3 days, 1/2 tab daily for 2 days PREDNISONE 90764628985 No Longer Active Adrián Varghese MD Active ZANTAC 75 75 MG ORAL TABLET take 1 po BID RANIT IDINE HCL 69029122848 No Longer Active Uriel BOYD Active BENZACLIN 1-5 % EXTERNAL GEL apply to skin BID prn for acne 2012 CLINDAMYCIN PHOS-BENZOYL PEROX 86500987795 No Longer Active Uriel BOYD Active BENZACLIN 1-5 % EXTERNAL GEL apply to skin BID prn for acne 2012 BENZACLIN 1-5 % EXTERNAL GEL 005377 CLINDAMYCIN PHOS-BE NZOYL PEROX Inactive MINOCYCLINE HCL 100 MG ORAL CAPSULE take one po BID 13/11/25 MINOCYCLINE HCL 100 MG ORAL CAPSULE 153968 MINOCYCLINE HCL Inac tive CLINDAMYCIN PHOSPHATE 2 % VAGINAL CREAM apply cream to acne BID prn CLINDAMYCIN PHOSPHATE 2 % VAGINAL CREAM 085127 CLINDAMY ANGELIA PHOSPHATE Inactive ULTRAM 50 MG ORAL TABLET take 1 tab po q 6 hrs prn headache pain ULTRAM 50 MG ORAL TABLET 122634 TRAMADOL HCL Inactiv e CYANOCOBALAMIN 1000 MCG/ML INJECTION SOLUTION 1 inject ion weekly for 1 month, than 1 a month for 2 months. recheck lab CYANOCOBALAMIN 1000 MCG/ML INJECTION SOLUTION 191026 CYANOCOBALAMIN Inactive CITALOPRAM HYDROBROMIDE 20 MG ORAL TABLET take 1 tab p o qday for depresion and anxiety. CITALOPRAM HYDROBROMIDE 20 MG ORAL TABLET 706612 CITALOPRAM HYDROBROMIDE Inactive PROZAC 10 MG ORAL CAPSULE Take 1 tab daily for 1 week. Then increase to 20mg daily. PROZAC 10 MG ORAL CAPSULE 198030 FLUOXETINE HCL Inactive ACZONE 5 % EXTERNAL GEL apply once daily to face 07/22 ACZONE 5 % EXTERNAL GEL 160978 DAPSONE Inactive SULFAMETHOXAZOLE-TRIMETHOPRIM 800-160 MG ORAL TABLET T QUINCY 1 TABLET BY MOUTH DAILY DIRECTED SULFAMETHOXAZOLE-TRI METHOPRIM 800-160 MG ORAL TABLET 389638 SULFAMETHOXAZOLE-TRIMETHOPRIM Inactive PROZAC 20 MG ORAL CAPSULE PRN PROZAC 20 MG ORAL CAPSULE 877548 FLUOXETINE HCL Inactive BUSPIRONE HCL 7.5 MG ORAL TABLET PRN BUSPIRONE HCL 7.5 MG ORAL TABLET 967701 BUSPIRONE HCL Inactive ESCITALOPRAM OXALATE 10 MG ORAL TABLET take 1 tab for mood 09/29 ESCITALOPRAM OXALATE 10 MG ORAL TABLET 890937 ESCITALOP VINCE OXALATE Inactive ABSORICA 20 MG ORAL CAPSULE 1 tablet daily ABSORICA 20 MG ORAL CAPSULE 559819 ISOTRETINOIN Inactive ZANTAC 75 75 MG ORAL TABLET take 1 po BID ZANTAC 75 75 MG ORAL TABLET 634669 RANITIDINE HCL Inactive PREDNISONE 20 MG ORAL TABLET 2 tabs daily for 3 days, 1 tab daily for 3 days, 1/2 tab daily for 2 days PREDNISONE 20 MG ORAL T ABLET 364917 PREDNISONE Inactive ZITHROMAX 250 MG ORAL TABLET 2 po today, then 1 po q days 2-5 20 11/06/16 ZITHROMAX 250 MG ORAL TABLET 492960 AZITHROMYCIN [place] ctive ZITHROMAX 250 MG ORAL TABLET 2 po today, then 1 po q days 2-5 20 12/07/06 ZITHROMAX 250 MG ORAL TABLET 083007 AZITHROMYCIN [place] ctive Advance Directives Directive Description [...] Value Unit Range Description blood pressure, diastolic 77 mm[Hg] BP jones [...] Value Unit Range Description Lab Report: Chlamydia/GC APTIMA/02813 - Lab chlamydia DNA probe NOT DETECTED NOT DETECTED Lab Report: Chlamydia/GC APTIMA/73700 - Microbiology Neisseria gonorrhoeae DNA probe NOT DETECTED NO T DETECTED Encounters Code Encounter Date Provider Facility CPT-01894 11962-Eby Vst-Est Level IV 16:46:27 C DT Adrián Varghese MD [facility]-98460 [id number] Vst-Est Level III 11:10:06 CDT Adrián Varghese MD [facility]-04657 Level 4 Est. Patient 09:07:11 CDT Adrián dyson MD [facility] CPT-48972 Level 3 New Patient 12:59:59 CDT Madelin almodovar MD [facility] CPT-94292 Level 3 Est. 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 Patient 11:35:37 ASSEMBLY LINE SUPERVISOR Cale morris [facility]-30329 Level 4 Est. Patient 11:10:55 CDT Shannan Are [facility] CPT-24206 Level 4 Est. Patient 14:07:40 CDT Shannan Are [facility]-72217 Level 4 Est. Patient 13:54:09 CDT Adrián dyson MD [facility] CPT-91430 Level 3 Est. Patient 09:22:14 CDT Adrián dyson MD [facility] CPT-77475 Level 3 Est. Patient 08:59:31 CDT Adrián dyson MD [facility] CPT-92539 Level 3 Est. Patient 11:58:31 CDT Adrián dyson MD [facility] CPT-54817 Level 3 Est. Patient 09:06:35 CDT Adrián dyson MD [facility] CPT-62920 Level 3 Est. Patient 09:18:45 CDT Adrián dyson MD [facility] CPT-11904 Level 3 Est. Patient 09:13:22 CDT Adrián dyson MD [facility] CPT-63777 Level 3 Est. Patient 18:04:31 ASSEMBLY LINE SUPERVISOR Adrián dyson MD [facility] CPT-90019 Level 4 Est. Patient 14:00:53 CDT Uriel bhatia [facility] CPT-07424 Level 3 Est. Patient 20:00:09 CDT Terry jenkins DO [facility] CPT-90952 Level 3 Est. Patient 08:45:08 CDT Uriel bhatia [facility] CPT-64449 Level 3 Est. Patient 09:09:26 CDT Uriel Ivy sriram [facility] CPT-21858 Level 3 Est. Patient 16:32:31 CDT Adrián dyson MD [facility] CPT-45879 Level 3 Est. Patient 09:35:27 ASSEMBLY LINE SUPERVISOR Norman fuentes [facility] CPT-68843 Level 2 Est. Patient 16:51:37 ASSEMBLY LINE SUPERVISOR Adrián dyson MD [facility] CPT-45817 Level 3 Est. Patient 10:00:11 ASSEMBLY LINE SUPERVISOR Ace Arriaza MD [facility] Procedures Code Procedure Name Date Entry Date Standard Desc ription CPT-J3420 B12 Injection 16:53:03 CDT CPT-000 Give Gardasil 08:59:32 CDT CPT-000 Give Immunizations Due 08:59:32 CDT CPT-83410 First Vx - Ix admin via ID I M or jet injects without counseling by physician 09:15:14 CDT CPT-53072 Meningococcal B, recombinant vaccine 09:15:14 CDT CPT-63252 Addl Vx - Ix admin via ID IM or jet injects without counseling by physician 15:35:10 CDT CPT-76682 Meningococcal B, recombinant vaccine 15:35:10 CDT CPT-56202 First Vx - Ix admin via ID I M or jet injects without counseling by physician 15:35:10 CDT CPT-99271 Havrix Intramuscular Suspension 720 EL U /0.5ML 15:35:10 CDT CPT-94597 First Vx - Ix admin via ID I M or jet injects without counseling by physician 14:18:02 CDT CPT-63778 Gardasil 9 Intramuscular Suspension 1 4:18:02 CDT CPT-J3420 Vitamin B12 1000mcg (Cyanocobalamin) 16:30:23 CDT CPT-66315 Abx/Therapy Injection 16:30:23 CDT CPT-J3420 Vitamin B12 1000mcg (Cyanocobalamin) 16:09:42 CDT CPT-57577 Abx/Therapy Injection 16:09:42 CDT CPT-J3420 Vitamin B12 1000mcg (Cyanocobalamin) 15:22:47 CDT CPT-14905 Abx/Therapy Injection 15:22:47 CDT CPT-J3420 Vitamin B12 1000mcg (Cyanocobalamin) 17:00:35 CDT CPT-09283 Abx/Therapy Injection 17:00:35 CDT CPT-33167 First Vx - Ix admin via ID I M or jet injects without counseling by physician 16:04:17 ASSEMBLY LINE SUPERVISOR CPT-17789 Gardasil 9 Intramuscular Suspension 1 6:04:17 ASSEMBLY LINE SUPERVISOR CPT-83111 Venipuncture Draw Fee 09:40:26 CDT CPT-44068 [place] [facility] - LAB USE ONLY 09:40:26 CDT 11/30 CPT-81078 CBC with Diff - LAB USE ONLY 09:40:26 CDT 2 CPT-28466 Addl Vx - Ix admin via ID IM or jet injects without counseling by physician 09:40:21 CDT CPT-90575 Menactra Intramuscular Injectable 09:40:21 CDT CPT-47225 Addl Vx - Ix admin via ID IM or jet injects without counseling by physician 09:40:21 CDT CPT-00375 Gardasil 9 Intramuscular Suspension 0 9:40:21 CDT CPT-06544 First Vx - Ix admin via ID I M or jet injects without counseling by physician 09:40:21 CDT CPT-91314 Havrix Intramuscular Suspension 720 EL U /0.5ML 09:40:21 CDT CPT-J2930 Solu Medrol 125 mg (Methyl Prednisolone Sodium Succinate) 09:43:26 CDT CPT-33321 Abx/Therapy Injection 09:43:26 CDT CPT-J2930 Solu Medrol 125 mg (Methyl Prednisolone Sodium Succinate) 09:05:55 CDT CPT-41479 Abx/Therapy Injection 09:05:55 CDT CPT-08409 Venipuncture Draw Fee 14:01:33 CDT CPT-16570 EKG Trac and Interp 11:22:04 CDT CPT-45791 Venipuncture Draw Fee 10:53:35 CDT CPT-J2930 Solu Medrol 125 mg (Methyl Prednisolone Sodium Succinate) 09:29:26 CDT CPT-01005 Abx/Therapy Injection 09:29:26 CDT CPT-Cryo Cryotherapy 16:51:37 ASSEMBLY LINE SUPERVISOR
--- OUTSIDE RECORDS SUMMARY | 2019-07-22 19:26 | XMS REPORT | Clinical Summary ---
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 Other atopic dermatitis and related conditions [...] tab po qday for ADHD METHYLPHENIDATE HCL 97990266839 Active D anshu Varghese MD Active ABSORICA 20 MG ORAL CAPSULE 1 tablet daily ISOT RETINOIN 49018406160 No Longer Active Adrián Varghese MD Active VIIBRYD 20 MG ORAL TABLET take 1 tab po qday for mood VILAZODONE HCL 71064217786 Active Adrián Varghese MD Active ESCITALOPRAM OXALATE 10 MG ORAL TABLET take 1 tab for mood 09/29 ESCITALOPRAM OXALATE 34154197804 No Longer Active Adrián Varghese MD Active BUSPIRONE HCL 7.5 MG ORAL TABLET PRN BUS PIRONE HCL 21375638424 No Longer Active Adrián Varghese MD Active PROZAC 20 MG ORAL CAPSULE PRN FLUOXETINE H CL 55091026458 No Longer Active Adrián Varghese MD Active SULFAMETHOXAZOLE-TRIMETHOPRIM 800-160 MG ORAL TABLET T QUINCY 1 TABLET BY MOUTH DAILY DIRECTED SULFAMETHOXAZOLE-TRIMETHOPRIM 73151140655 No Longer Active Madelin Hatch MD Active ACZONE 5 % EXTERNAL GEL apply once daily to face 5 DAPSONE 32317301032 No Longer Active Madelin Hatch MD Active PROZAC 10 MG ORAL CAPSULE Take 1 tab daily for 1 week. Then increase to 20mg daily. FLUOXETINE HCL 43034050918 No Longer Active Yluissa Evans APRN Active CITALOPRAM HYDROBROMIDE 20 MG ORAL TABLET take 1 tab p o qday for depresion and anxiety. CITALOPRAM HYDROBROMIDE 01526986975 No L onger Active Shannan Evans APRN Active CYANOCOBALAMIN 1000 MCG/ML INJECTION SOLUTION 1 inject ion weekly for 1 month, than 1 a month for 2 months. recheck lab CYANOCO BALAMIN 22465314593 No Longer Active Shannan Evans APRN Active ULTRAM 50 MG ORAL TABLET 1 TAB PO Q 6 HRS PRN HEADACHE TRAMADOL HCL 34874999374 Active Adrián Varghese MD Active ULTRAM 50 MG ORAL TABLET take 1 tab po q 6 hrs prn headache pain TRAMADOL HCL 09515813351 No Longer Active Adrián Varghese MD Active CLINDAMYCIN PHOSPHATE 2 % VAGINAL CREAM apply cream to acne BID prn CLINDAMYCIN PHOSPHATE 63949740269 No Longer Active Adrián dyson MD Active MINOCYCLINE HCL 100 MG ORAL CAPSULE take one po BID 20 13/11/25 MINOCYCLINE HCL 35169406326 No Longer Active Adrián Varghese MD A ctive TRI-SPRINTEC 0.18/0.215/0.25 MG-35 MCG ORAL TABLET 1 po qd a s directed NORGESTIM-ETH ESTRAD TRIPHASIC 01180064749 Active Madelin Hatch MD Active ZITHROMAX 250 MG ORAL TABLET 2 po today, then 1 po q days 2-5 20 12/07/06 AZITHROMYCIN 34223458132 No Longer Active Adrián Varghese MD Active ZITHROMAX 250 MG ORAL TABLET 2 po today, then 1 po q days 2-5 20 11/06/16 AZITHROMYCIN 46433553141 No Longer Active Adrián Varghese MD Active PREDNISONE 20 MG ORAL TABLET 2 tabs daily for 3 days, 1 tab daily for 3 days, 1/2 tab daily for 2 days PREDNISONE 29256522459 No Longer Active Adrián Varghese MD Active ZANTAC 75 75 MG ORAL TABLET take 1 po BID RANIT IDINE HCL 82300687070 No Longer Active Uriel BOYD Active BENZACLIN 1-5 % EXTERNAL GEL apply to skin BID prn for acne 2012 CLINDAMYCIN PHOS-BENZOYL PEROX 71132875263 No Longer Active Uriel BOYD Active BENZACLIN 1-5 % EXTERNAL GEL apply to skin BID prn for acne 2012 BENZACLIN 1-5 % EXTERNAL GEL 723397 CLINDAMYCIN PHOS-BE NZOYL PEROX Inactive MINOCYCLINE HCL 100 MG ORAL CAPSULE take one po BID 13/11/25 MINOCYCLINE HCL 100 MG ORAL CAPSULE 271713 MINOCYCLINE HCL Inac tive CLINDAMYCIN PHOSPHATE 2 % VAGINAL CREAM apply cream to acne BID prn CLINDAMYCIN PHOSPHATE 2 % VAGINAL CREAM 609734 CLINDAMY ANGELIA PHOSPHATE Inactive ULTRAM 50 MG ORAL TABLET take 1 tab po q 6 hrs prn headache pain ULTRAM 50 MG ORAL TABLET 619556 TRAMADOL HCL Inactiv e CYANOCOBALAMIN 1000 MCG/ML INJECTION SOLUTION 1 inject ion weekly for 1 month, than 1 a month for 2 months. recheck lab CYANOCOBALAMIN 1000 MCG/ML INJECTION SOLUTION 888026 CYANOCOBALAMIN Inactive CITALOPRAM HYDROBROMIDE 20 MG ORAL TABLET take 1 tab p o qday for depresion and anxiety. CITALOPRAM HYDROBROMIDE 20 MG ORAL TABLET 667600 CITALOPRAM HYDROBROMIDE Inactive PROZAC 10 MG ORAL CAPSULE Take 1 tab daily for 1 week. Then increase to 20mg daily. PROZAC 10 MG ORAL CAPSULE 275214 FLUOXETINE HCL Inactive ACZONE 5 % EXTERNAL GEL apply once daily to face 07/22 ACZONE 5 % EXTERNAL GEL 475300 DAPSONE Inactive SULFAMETHOXAZOLE-TRIMETHOPRIM 800-160 MG ORAL TABLET T QUINCY 1 TABLET BY MOUTH DAILY DIRECTED SULFAMETHOXAZOLE-TRI METHOPRIM 800-160 MG ORAL TABLET 279825 SULFAMETHOXAZOLE-TRIMETHOPRIM Inactive PROZAC 20 MG ORAL CAPSULE PRN PROZAC 20 MG ORAL CAPSULE 154591 FLUOXETINE HCL Inactive BUSPIRONE HCL 7.5 MG ORAL TABLET PRN BUSPIRONE HCL 7.5 MG ORAL TABLET 936699 BUSPIRONE HCL Inactive ESCITALOPRAM OXALATE 10 MG ORAL TABLET take 1 tab for mood 09/29 ESCITALOPRAM OXALATE 10 MG ORAL TABLET 221124 ESCITALOP VINCE OXALATE Inactive ABSORICA 20 MG ORAL CAPSULE 1 tablet daily ABSORICA 20 MG ORAL CAPSULE 442483 ISOTRETINOIN Inactive ZANTAC 75 75 MG ORAL TABLET take 1 po BID ZANTAC 75 75 MG ORAL TABLET 418946 RANITIDINE HCL Inactive PREDNISONE 20 MG ORAL TABLET 2 tabs daily for 3 days, 1 tab daily for 3 days, 1/2 tab daily for 2 days PREDNISONE 20 MG ORAL T ABLET 362755 PREDNISONE Inactive ZITHROMAX 250 MG ORAL TABLET 2 po today, then 1 po q days 2-5 20 11/06/16 ZITHROMAX 250 MG ORAL TABLET 329460 AZITHROMYCIN [place] ct[facility] ZITHROMAX 250 MG ORAL TABLET 2 po today, then 1 po q days 2-5 20 12/07/06 ZITHROMAX 250 MG ORAL TABLET 659642 AZITHROMYCIN [place] ct[facility] Advance Directives Directive Description Start Date [...] Value Unit Range Description Lab Report: Chlamydia/GC APTIMA/01536 - Lab chlamydia DNA probe NOT DETECTED NOT DETECTED Lab Report: Chlamydia/GC APTIMA/40329 - Microbiology Neisseria gonorrhoeae DNA probe NOT DETECTED NO T DETECTED Encounters Code Encounter Date Provider Facility CPT-87345 [id number] Vst-Est Level IV 16:46:27 C DT Adrián Varghese MD [facility]-58699 [id number] Vst-Est Level III 11:10:06 CDT Adrián Varghese MD [facility]-99123 Level 4 Est. Patient 09:07:11 CDT Adrián dyson MD [facility] CPT-79371 Level 3 New Patient 12:59:59 CDT Madelin almodovar MD [facility] CPT-41114 Level 3 Est. 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 CPT-18292 Level 3 Est. 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 Patient 11:10:55 CDT Shannan Are [facility] CPT-98917 Level 4 Est. Patient 14:07:40 CDT Shannan Are [facility] CPT-94904 Level 4 Est. Patient 13:54:09 CDT Adrián dyson MD [facility] CPT-34133 Level 3 Est. Patient 09:22:14 CDT Adrián dyson MD [facility] CPT-61318 Level 3 Est. Patient 08:59:31 CDT Adrián dyson MD [facility] CPT-52385 Level 3 Est. Patient 11:58:31 CDT Adrián dyson MD [facility] -[facility] CPT-83273 Level 3 Est. Patient 09:06:35 CDT Adrián dyson MD [facility] CPT-86482 Level 3 Est. Patient 09:18:45 CDT Adrián dyson MD [facility] CPT-28657 Level 3 Est. Patient 09:13:22 CDT Adrián dyson MD [facility] CPT-43064 Level 3 Est. Patient 18:04:31 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 Adrián dyson MD [facility] CPT-74423 Level 4 Est. Patient 14:00:53 CDT Uriel bhatia [facility] CPT-73248 Level 3 Est. Patient 20:00:09 CDT Terry jenkins DO [facility] CPT-64380 Level 3 Est. Patient 08:45:08 CDT Uriel bhatia [facility] CPT-65890 Level 3 Est. Patient 09:09:26 CDT Uriel Ivy sriram [facility] CPT-67118 Level 3 Est. Patient 16:32:31 CDT Adrián dyson MD [facility] CPT-99904 Level 3 Est. 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 Ace Arriaza MD [facility] Procedures Code Procedure Name Date Entry Date Standard Desc ription CPT-J3420 B12 Injection 16:53:03 CDT CPT-000 Give Gardasil 08:59:32 CDT CPT-000 Give Immunizations Due 08:59:32 CDT CPT-67507 First Vx - Ix admin via ID I M or jet injects without counseling by physician 09:15:14 CDT CPT-94100 Meningococcal B, recombinant vaccine 09:15:14 CDT CPT-07898 Addl Vx - Ix admin via ID IM or jet injects without counseling by physician 15:35:10 CDT CPT-85592 Meningococcal B, recombinant vaccine 15:35:10 CDT CPT-25158 First Vx - Ix admin via ID I M or jet injects without counseling by physician 15:35:10 CDT CPT-52954 Havrix Intramuscular Suspension 720 EL U /0.5ML 15:35:10 CDT CPT-93865 First Vx - Ix admin via ID I M or jet injects without counseling by physician 14:18:02 CDT CPT-67409 Gardasil 9 Intramuscular Suspension 1 4:18:02 CDT CPT-J3420 Vitamin B12 1000mcg (Cyanocobalamin) 16:30:23 CDT CPT-80031 Abx/Therapy Injection 16:30:23 CDT CPT-J3420 Vitamin B12 1000mcg (Cyanocobalamin) 16:09:42 CDT CPT-41305 Abx/Therapy Injection 16:09:42 CDT CPT-J3420 Vitamin B12 1000mcg (Cyanocobalamin) 15:22:47 CDT CPT-94996 Abx/Therapy Injection 15:22:47 CDT CPT-J3420 Vitamin B12 1000mcg (Cyanocobalamin) 17:00:35 CDT CPT-67403 Abx/Therapy Injection 17:00:35 CDT CPT-12543 First Vx - Ix admin via ID I M or jet injects without counseling by physician 16:04:17 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 CPT-62891 Gardasil 9 Intramuscular Suspension 1 6:04:17 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 CPT-72148 Venipuncture Draw Fee 09:40:26 CDT CPT-44139 [place] Spot - LAB USE ONLY 09:40:26 CDT 11/30 CPT-16083 CBC with Diff - LAB USE ONLY 09:40:26 CDT 2 CPT-02933 Addl Vx - Ix admin via ID IM or jet injects without counseling by physician 09:40:21 CDT CPT-07598 Menactra Intramuscular Injectable 09:40:21 CDT CPT-62117 Addl Vx - Ix admin via ID IM or jet injects without counseling by physician 09:40:21 CDT CPT-45592 Gardasil 9 Intramuscular Suspension 0 9:40:21 CDT CPT-26116 First Vx - Ix admin via ID I M or jet injects without counseling by physician 09:40:21 CDT CPT-51718 Havrix Intramuscular Suspension 720 EL U /0.5ML 09:40:21 CDT CPT-J2930 Solu Medrol 125 mg (Methyl Prednisolone Sodium Succinate) 09:43:26 CDT CPT-84172 Abx/Therapy Injection 09:43:26 CDT CPT-J2930 Solu Medrol 125 mg (Methyl Prednisolone Sodium Succinate) 09:05:55 CDT CPT-07826 Abx/Therapy Injection 09:05:55 CDT CPT-48801 Venipuncture Draw Fee 14:01:33 CDT CPT-37269 EKG Trac and Interp 11:22:04 CDT CPT-06551 Venipuncture Draw Fee 10:53:35 CDT CPT-J2930 Solu Medrol 125 mg (Methyl Prednisolone Sodium Succinate) 09:29:26 CDT CPT-63970 Abx/Therapy Injection 09:29:26 CDT CPT-Cryo Cryotherapy 16:51:37 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
--- OUTSIDE RECORDS SUMMARY | 2019-07-22 19:26 | XMS REPORT | Clinical Summary ---
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 Other atopic dermatitis and related conditions Contraceptive [...] Adrián Varghese MD VIRAL INFECTION ICD-079.99 Inactive Adirán hughes MD PALPITATIONS ICD-785.1 Inactive Adrián samuel [...] tab po qday for ADHD METHYLPHENIDATE HCL 75809578030 Active D anshu Varghese MD Active ABSORICA 20 MG ORAL CAPSULE 1 tablet daily ISOT RETINOIN 25740389010 No Longer Active Adrián Varghese MD Active VIIBRYD 20 MG ORAL TABLET take 1 tab po qday for mood VILAZODONE HCL 64517264429 Active Adrián Varghese MD Active ESCITALOPRAM OXALATE 10 MG ORAL TABLET take 1 tab for mood 09/29 ESCITALOPRAM OXALATE 73459316283 No Longer Active Adrián Varghese MD Active BUSPIRONE HCL 7.5 MG ORAL TABLET PRN BUS PIRONE HCL 40857835892 No Longer Active Adrián Varghese MD Active PROZAC 20 MG ORAL CAPSULE PRN FLUOXETINE H CL 19075324324 No Longer Active Adrián Varghese MD Active SULFAMETHOXAZOLE-TRIMETHOPRIM 800-160 MG ORAL TABLET T QUINCY 1 TABLET BY MOUTH DAILY DIRECTED SULFAMETHOXAZOLE-TRIMETHOPRIM 11996483428 No Longer Active Madelin Hatch MD Active ACZONE 5 % EXTERNAL GEL apply once daily to face 5 DAPSONE 73770109037 No Longer Active Madelin Hatch MD Active PROZAC 10 MG ORAL CAPSULE Take 1 tab daily for 1 week. Then increase to 20mg daily. FLUOXETINE HCL 01584328009 No Longer Active Yulissa Evans APRN Active CITALOPRAM HYDROBROMIDE 20 MG ORAL TABLET take 1 tab p o qday for depresion and anxiety. CITALOPRAM HYDROBROMIDE 80994371226 No L onger Active Shannan Evans APRN Active CYANOCOBALAMIN 1000 MCG/ML INJECTION SOLUTION 1 inject ion weekly for 1 month, than 1 a month for 2 months. recheck lab CYANOCO BALAMIN 06300342256 No Longer Active Shannan Evans APRN Active ULTRAM 50 MG ORAL TABLET 1 TAB PO Q 6 HRS PRN HEADACHE TRAMADOL HCL 88216554196 Active Adrián Varghese MD Active ULTRAM 50 MG ORAL TABLET take 1 tab po q 6 hrs prn headache pain TRAMADOL HCL 80382175259 No Longer Active Adrián Varghese MD Active CLINDAMYCIN PHOSPHATE 2 % VAGINAL CREAM apply cream to acne BID prn CLINDAMYCIN PHOSPHATE 40205906929 No Longer Active Adirán dyson MD Active MINOCYCLINE HCL 100 MG ORAL CAPSULE take one po BID 20 13/11/25 MINOCYCLINE HCL 00063744670 No Longer Active Adrián Varghese MD A ctive TRI-SPRINTEC 0.18/0.215/0.25 MG-35 MCG ORAL TABLET 1 po qd a s directed NORGESTIM-ETH ESTRAD TRIPHASIC 28697997887 Active Madelin Hatch MD Active ZITHROMAX 250 MG ORAL TABLET 2 po today, then 1 po q days 2-5 20 12/07/06 AZITHROMYCIN 24038787680 No Longer Active Adrián Varghese MD Active ZITHROMAX 250 MG ORAL TABLET 2 po today, then 1 po q days 2-5 20 11/06/16 AZITHROMYCIN 78661331977 No Longer Active Adrián Varghese MD Active PREDNISONE 20 MG ORAL TABLET 2 tabs daily for 3 days, 1 tab daily for 3 days, 1/2 tab daily for 2 days PREDNISONE 24995707050 No Longer Active Adrián Varghese MD Active ZANTAC 75 75 MG ORAL TABLET take 1 po BID RANIT IDINE HCL 56708527146 No Longer Active Uriel BOYD Active BENZACLIN 1-5 % EXTERNAL GEL apply to skin BID prn for acne 2012 CLINDAMYCIN PHOS-BENZOYL PEROX 38007430740 No Longer Active Uriel BOYD Active BENZACLIN 1-5 % EXTERNAL GEL apply to skin BID prn for acne 2012 BENZACLIN 1-5 % EXTERNAL GEL 564202 CLINDAMYCIN PHOS-BE NZOYL PEROX Inactive MINOCYCLINE HCL 100 MG ORAL CAPSULE take one po BID 13/11/25 MINOCYCLINE HCL 100 MG ORAL CAPSULE 895538 MINOCYCLINE HCL Inac tive CLINDAMYCIN PHOSPHATE 2 % VAGINAL CREAM apply cream to acne BID prn CLINDAMYCIN PHOSPHATE 2 % VAGINAL CREAM 101273 CLINDAMY ANGELIA PHOSPHATE Inactive ULTRAM 50 MG ORAL TABLET take 1 tab po q 6 hrs prn headache pain ULTRAM 50 MG ORAL TABLET 664809 TRAMADOL HCL Inactiv e CYANOCOBALAMIN 1000 MCG/ML INJECTION SOLUTION 1 inject ion weekly for 1 month, than 1 a month for 2 months. recheck lab CYANOCOBALAMIN 1000 MCG/ML INJECTION SOLUTION 024700 CYANOCOBALAMIN Inactive CITALOPRAM HYDROBROMIDE 20 MG ORAL TABLET take 1 tab p o qday for depresion and anxiety. CITALOPRAM HYDROBROMIDE 20 MG ORAL TABLET 494444 CITALOPRAM HYDROBROMIDE Inactive PROZAC 10 MG ORAL CAPSULE Take 1 tab daily for 1 week. Then increase to 20mg daily. PROZAC 10 MG ORAL CAPSULE 196126 FLUOXETINE HCL Inactive ACZONE 5 % EXTERNAL GEL apply once daily to face 07/22 ACZONE 5 % EXTERNAL GEL 289410 DAPSONE Inactive SULFAMETHOXAZOLE-TRIMETHOPRIM 800-160 MG ORAL TABLET T QUINCY 1 TABLET BY MOUTH DAILY DIRECTED SULFAMETHOXAZOLE-TRI METHOPRIM 800-160 MG ORAL TABLET 489794 SULFAMETHOXAZOLE-TRIMETHOPRIM Inactive PROZAC 20 MG ORAL CAPSULE PRN PROZAC 20 MG ORAL CAPSULE 392010 FLUOXETINE HCL Inactive BUSPIRONE HCL 7.5 MG ORAL TABLET PRN BUSPIRONE HCL 7.5 MG ORAL TABLET 192165 BUSPIRONE HCL Inactive ESCITALOPRAM OXALATE 10 MG ORAL TABLET take 1 tab for mood 09/29 ESCITALOPRAM OXALATE 10 MG ORAL TABLET 871203 ESCITALOP VINCE OXALATE Inactive ABSORICA 20 MG ORAL CAPSULE 1 tablet daily ABSORICA 20 MG ORAL CAPSULE 114462 ISOTRETINOIN Inactive ZANTAC 75 75 MG ORAL TABLET take 1 po BID ZANTAC 75 75 MG ORAL TABLET 090288 RANITIDINE HCL Inactive PREDNISONE 20 MG ORAL TABLET 2 tabs daily for 3 days, 1 tab daily for 3 days, 1/2 tab daily for 2 days PREDNISONE 20 MG ORAL T ABLET 093732 PREDNISONE Inactive ZITHROMAX 250 MG ORAL TABLET 2 po today, then 1 po q days 2-5 20 11/06/16 ZITHROMAX 250 MG ORAL TABLET 368324 AZITHROMYCIN [place] ct[facility] ZITHROMAX 250 MG ORAL TABLET 2 po today, then 1 po q days 2-5 20 12/07/06 ZITHROMAX 250 MG ORAL TABLET 370518 AZITHROMYCIN [place] [facility] Advance Directives Directive Description [...] Value Unit Range Description Lab Report: Chlamydia/GC APTIMA/72164 - Lab chlamydia DNA probe NOT DETECTED NOT DETECTED Lab Report: Chlamydia/GC APTIMA/23418 - Microbiology Neisseria gonorrhoeae DNA probe NOT DETECTED NO T DETECTED Encounters Code Encounter Date Provider Facility CPT-95457 11849-Brh Vst-Est Level IV 16:46:27 C DT Adrián Varghese MD [facility]-01525 01127-Pbo Vst-Est Level III 11:10:06 CDT Adrián Varghese MD [facility]-46614 Level 4 Est. Patient 09:07:11 CDT Adrián dyson MD [facility] CPT-75468 Level 3 New Patient 12:59:59 CDT Madelin almodovar MD [facility] CPT-51930 Level 3 Est. 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 Patient 11:35:37 [employer] Cale morris [facility]-67455 Level 4 Est. Patient 11:10:55 CDT Shannan Are [facility] CPT-76636 Level 4 Est. Patient 14:07:40 CDT Shannan Are [facility]-94344 Level 4 Est. Patient 13:54:09 CDT Adrián dyson MD [facility] CPT-20987 Level 3 Est. Patient 09:22:14 CDT Adrián dyson MD [facility] CPT-56468 Level 3 Est. Patient 08:59:31 CDT Adrián dyson MD [facility] CPT-14446 Level 3 Est. Patient 11:58:31 CDT Adrián dyson MD [facility] CPT-06272 Level 3 Est. Patient 09:06:35 CDT Adrián dyson MD [facility] CPT-42700 Level 3 Est. Patient 09:18:45 CDT Adrián dyson MD [facility] CPT-77546 Level 3 Est. Patient 09:13:22 CDT Adrián dyson MD [facility] CPT-90555 Level 3 Est. Patient 18:04:31 [employer] Adrián dyson MD [facility] CPT-63826 Level 4 Est. Patient 14:00:53 CDT Uriel bhatia [facility] CPT-55735 Level 3 Est. Patient 20:00:09 CDT Terry jenkins DO [facility] CPT-98499 Level 3 Est. Patient 08:45:08 CDT Uriel bhatia [facility] CPT-22686 Level 3 Est. Patient 09:09:26 CDT Uriel Ivy sriram [facility] CPT-13766 Level 3 Est. Patient 16:32:31 CDT Adrián dyson MD [facility] CPT-79357 Level 3 Est. Patient 09:35:27 [employer]ER Norman fuentes [facility] CPT-81313 Level 2 Est. Patient 16:51:37 [employer]ESSER Adrián dyson MD [facility] CPT-39799 Level 3 Est. Patient 10:00:11 [employer]ESSER Ace Arriaza MD [facility] Procedures Code Procedure Name Date Entry Date Standard Desc ription CPT-J3420 B12 Injection 16:53:03 CDT CPT-000 Give Gardasil 08:59:32 CDT CPT-000 Give Immunizations Due 08:59:32 CDT CPT-81028 First Vx - Ix admin via ID I M or jet injects without counseling by physician 09:15:14 CDT CPT-99909 Meningococcal B, recombinant vaccine 09:15:14 CDT CPT-15860 Addl Vx - Ix admin via ID IM or jet injects without counseling by physician 15:35:10 CDT CPT-41193 Meningococcal B, recombinant vaccine 15:35:10 CDT CPT-87114 First Vx - Ix admin via ID I M or jet injects without counseling by physician 15:35:10 CDT CPT-17778 Havrix Intramuscular Suspension 720 EL U /0.5ML 15:35:10 CDT CPT-01053 First Vx - Ix admin via ID I M or jet injects without counseling by physician 14:18:02 CDT CPT-11140 Gardasil 9 Intramuscular Suspension 1 4:18:02 CDT CPT-J3420 Vitamin B12 1000mcg (Cyanocobalamin) 16:30:23 CDT CPT-06715 Abx/Therapy Injection 16:30:23 CDT CPT-J3420 Vitamin B12 1000mcg (Cyanocobalamin) 16:09:42 CDT CPT-76849 Abx/Therapy Injection 16:09:42 CDT CPT-J3420 Vitamin B12 1000mcg (Cyanocobalamin) 15:22:47 CDT CPT-35164 Abx/Therapy Injection 15:22:47 CDT CPT-J3420 Vitamin B12 1000mcg (Cyanocobalamin) 17:00:35 CDT CPT-37988 Abx/Therapy Injection 17:00:35 CDT CPT-32907 First Vx - Ix admin via ID I M or jet injects without counseling by physician 16:04:17 [employer] CPT-25487 Gardasil 9 Intramuscular Suspension 1 6:04:17 [employer] CPT-09189 Venipuncture Draw Fee 09:40:26 CDT CPT-13745 [place] Spot - LAB USE ONLY 09:40:26 CDT 11/30 CPT-20898 CBC with Diff - LAB USE ONLY 09:40:26 CDT 2 CPT-66635 Addl Vx - Ix admin via ID IM or jet injects without counseling by physician 09:40:21 CDT CPT-28947 Menactra Intramuscular Injectable 09:40:21 CDT CPT-78790 Addl Vx - Ix admin via ID IM or jet injects without counseling by physician 09:40:21 CDT CPT-13413 Gardasil 9 Intramuscular Suspension 0 9:40:21 CDT CPT-34744 First Vx - Ix admin via ID I M or jet injects without counseling by physician 09:40:21 CDT CPT-29822 Havrix Intramuscular Suspension 720 EL U /0.5ML 09:40:21 CDT CPT-J2930 Solu Medrol 125 mg (Methyl Prednisolone Sodium Succinate) 09:43:26 CDT CPT-45732 Abx/Therapy Injection 09:43:26 CDT CPT-J2930 Solu Medrol 125 mg (Methyl Prednisolone Sodium Succinate) 09:05:55 CDT CPT-16746 Abx/Therapy Injection 09:05:55 CDT CPT-75427 Venipuncture Draw Fee 14:01:33 CDT CPT-28059 EKG Trac and Interp 11:22:04 CDT CPT-15044 Venipuncture Draw Fee 10:53:35 CDT CPT-J2930 Solu Medrol 125 mg (Methyl Prednisolone Sodium Succinate) 09:29:26 CDT CPT-08726 Abx/Therapy Injection 09:29:26 CDT CPT-Cryo Cryotherapy 16:51:37 [employer]IM [employer] CROWN [employer]ER
--- OUTSIDE RECORDS SUMMARY | 2019-07-22 19:27 | XMS REPORT | Clinical Summary ---
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 Contraceptive [...] tab po qday for ADHD METHYLPHENIDATE HCL 13802860468 Active D anshu Varghese MD Active ABSORICA 20 MG ORAL CAPSULE 1 tablet daily ISOT RETINOIN 17074939136 No Longer Active Adrián Varghese MD Active VIIBRYD 20 MG ORAL TABLET take 1 tab po qday for mood VILAZODONE HCL 05624031136 Active Adrián Varghese MD Active ESCITALOPRAM OXALATE 10 MG ORAL TABLET take 1 tab for mood 09/29 ESCITALOPRAM OXALATE 76242993039 No Longer Active Adrián Varghese MD Active BUSPIRONE HCL 7.5 MG ORAL TABLET PRN BUS PIRONE HCL 05607512363 No Longer Active Adrián Varghese MD Active PROZAC 20 MG ORAL CAPSULE PRN FLUOXETINE H CL 52741091526 No Longer Active Adrián Varghese MD Active SULFAMETHOXAZOLE-TRIMETHOPRIM 800-160 MG ORAL TABLET T QUINCY 1 TABLET BY MOUTH DAILY DIRECTED SULFAMETHOXAZOLE-TRIMETHOPRIM 88837705903 No Longer Active Madelin Hatch MD Active ACZONE 5 % EXTERNAL GEL apply once daily to face 5 DAPSONE 24623142150 No Longer Active Madelin Hatch MD Active PROZAC 10 MG ORAL CAPSULE Take 1 tab daily for 1 week. Then increase to 20mg daily. FLUOXETINE HCL 22355298355 No Longer Active Yulissa Evans APRN Active CITALOPRAM HYDROBROMIDE 20 MG ORAL TABLET take 1 tab p o qday for depresion and anxiety. CITALOPRAM HYDROBROMIDE 06014918100 No L onger Active Shannan Evans APRN Active CYANOCOBALAMIN 1000 MCG/ML INJECTION SOLUTION 1 inject ion weekly for 1 month, than 1 a month for 2 months. recheck lab CYANOCO BALAMIN 34074352727 No Longer Active Shannan Evans APRN Active ULTRAM 50 MG ORAL TABLET 1 TAB PO Q 6 HRS PRN HEADACHE TRAMADOL HCL 57331365835 Active Adrián Varghese MD Active ULTRAM 50 MG ORAL TABLET take 1 tab po q 6 hrs prn headache pain TRAMADOL HCL 17119055287 No Longer Active Adrián Varghese MD Active CLINDAMYCIN PHOSPHATE 2 % VAGINAL CREAM apply cream to acne BID prn CLINDAMYCIN PHOSPHATE 52137065630 No Longer Active Adrián dyson MD Active MINOCYCLINE HCL 100 MG ORAL CAPSULE take one po BID 20 13/11/25 MINOCYCLINE HCL 38480429484 No Longer Active Adrián Varghese MD A ctive TRI-SPRINTEC 0.18/0.215/0.25 MG-35 MCG ORAL TABLET 1 po qd a s directed NORGESTIM-ETH ESTRAD TRIPHASIC 81214666360 Active Madelin Hatch MD Active ZITHROMAX 250 MG ORAL TABLET 2 po today, then 1 po q days 2-5 20 12/07/06 AZITHROMYCIN 93107933186 No Longer Active Adrián Varghese MD Active ZITHROMAX 250 MG ORAL TABLET 2 po today, then 1 po q days 2-5 20 11/06/16 AZITHROMYCIN 71781559436 No Longer Active Adrián Varghese MD Active PREDNISONE 20 MG ORAL TABLET 2 tabs daily for 3 days, 1 tab daily for 3 days, 1/2 tab daily for 2 days PREDNISONE 85758253240 No Longer Active Adrián Varghese MD Active ZANTAC 75 75 MG ORAL TABLET take 1 po BID RANIT IDINE HCL 55131346948 No Longer Active Uriel BOYD Active BENZACLIN 1-5 % EXTERNAL GEL apply to skin BID prn for acne 2012 CLINDAMYCIN PHOS-BENZOYL PEROX 98154691420 No Longer Active Uriel BOYD Active BENZACLIN 1-5 % EXTERNAL GEL apply to skin BID prn for acne 2012 BENZACLIN 1-5 % EXTERNAL GEL 621410 CLINDAMYCIN PHOS-BE NZOYL PEROX Inactive MINOCYCLINE HCL 100 MG ORAL CAPSULE take one po BID 13/11/25 MINOCYCLINE HCL 100 MG ORAL CAPSULE 109176 MINOCYCLINE HCL Inac tive CLINDAMYCIN PHOSPHATE 2 % VAGINAL CREAM apply cream to acne BID prn CLINDAMYCIN PHOSPHATE 2 % VAGINAL CREAM 426935 CLINDAMY ANGELIA PHOSPHATE Inactive ULTRAM 50 MG ORAL TABLET take 1 tab po q 6 hrs prn headache pain ULTRAM 50 MG ORAL TABLET 025908 TRAMADOL HCL Inactiv e CYANOCOBALAMIN 1000 MCG/ML INJECTION SOLUTION 1 inject ion weekly for 1 month, than 1 a month for 2 months. recheck lab CYANOCOBALAMIN 1000 MCG/ML INJECTION SOLUTION 643760 CYANOCOBALAMIN Inactive CITALOPRAM HYDROBROMIDE 20 MG ORAL TABLET take 1 tab p o qday for depresion and anxiety. CITALOPRAM HYDROBROMIDE 20 MG ORAL TABLET 073080 CITALOPRAM HYDROBROMIDE Inactive PROZAC 10 MG ORAL CAPSULE Take 1 tab daily for 1 week. Then increase to 20mg daily. PROZAC 10 MG ORAL CAPSULE 251416 FLUOXETINE HCL Inactive ACZONE 5 % EXTERNAL GEL apply once daily to face 07/22 ACZONE 5 % EXTERNAL GEL 466241 DAPSONE Inactive SULFAMETHOXAZOLE-TRIMETHOPRIM 800-160 MG ORAL TABLET T QUINCY 1 TABLET BY MOUTH DAILY DIRECTED SULFAMETHOXAZOLE-TRI METHOPRIM 800-160 MG ORAL TABLET 859924 SULFAMETHOXAZOLE-TRIMETHOPRIM Inactive PROZAC 20 MG ORAL CAPSULE PRN PROZAC 20 MG ORAL CAPSULE 012111 FLUOXETINE HCL Inactive BUSPIRONE HCL 7.5 MG ORAL TABLET PRN BUSPIRONE HCL 7.5 MG ORAL TABLET 850967 BUSPIRONE HCL Inactive ESCITALOPRAM OXALATE 10 MG ORAL TABLET take 1 tab for mood 09/29 ESCITALOPRAM OXALATE 10 MG ORAL TABLET 785505 ESCITALOP VINCE OXALATE Inactive ABSORICA 20 MG ORAL CAPSULE 1 tablet daily ABSORICA 20 MG ORAL CAPSULE 641097 ISOTRETINOIN Inactive ZANTAC 75 75 MG ORAL TABLET take 1 po BID ZANTAC 75 75 MG ORAL TABLET 349146 RANITIDINE HCL Inactive PREDNISONE 20 MG ORAL TABLET 2 tabs daily for 3 days, 1 tab daily for 3 days, 1/2 tab daily for 2 days PREDNISONE 20 MG ORAL T ABLET 264301 PREDNISONE Inactive ZITHROMAX 250 MG ORAL TABLET 2 po today, then 1 po q days 2-5 20 11/06/16 ZITHROMAX 250 MG ORAL TABLET 591317 AZITHROMYCIN [place] ctive ZITHROMAX 250 MG ORAL TABLET 2 po today, then 1 po q days 2-5 20 12/07/06 ZITHROMAX 250 MG ORAL TABLET 397102 AZITHROMYCIN [place] ctive Advance Directives Directive Description Start Date [...] Value Unit Range Description Lab Report: Chlamydia/GC APTIMA/27139 - Lab chlamydia DNA probe NOT DETECTED NOT DETECTED Lab Report: Chlamydia/GC [facility]TIM[facility]/11829 - Microbiology Neisseria gonorrhoeae DNA probe NOT DETECTED NO T DETECTED Encounters Code Encounter Date Provider Facility CPT-22584 69856-Zdo Vst-Est Level IV 16:46:27 C DT Adrián Varghese MD [facility]-58796 71902-Wkm Vst-Est Level III 11:10:06 CDT Adrián Varghese MD [facility]-16305 Level 4 Est. Patient 09:07:11 CDT Adrián dyson MD [facility] CPT-98407 Level 3 New Patient 12:59:59 CDT Madelin almodovar MD [facility] CPT-29544 Level 3 Est. Patient 10:07:39 COURT SPECIALIST Cale morris [facility] CPT-93662 Level 3 Est. Patient 11:35:37 COURT SPECIALIST Cale morris [facility]-88712 Level 4 Est. Patient 11:10:55 CDT Shannan Are [facility] CPT-45747 Level 4 Est. Patient 14:07:40 CDT Shannan Are [facility] CPT-20848 Level 4 Est. Patient 13:54:09 CDT Adrián dyson MD [facility] CPT-25972 Level 3 Est. Patient 09:22:14 CDT Adrián dyson MD [facility] CPT-32382 Level 3 Est. Patient 08:59:31 CDT Adrián dyson MD [facility] CPT-49519 Level 3 Est. Patient 11:58:31 CDT Adrián dyson MD [facility] CPT-70033 Level 3 Est. Patient 09:06:35 CDT Adrián dyson MD [facility] CPT-96596 Level 3 Est. Patient 09:18:45 CDT Adrián dyson MD [facility] CPT-32495 Level 3 Est. Patient 09:13:22 CDT Adrián dyson MD [facility] CPT-74569 Level 3 Est. Patient 18:04:31 COURT SPECIALIST Adrián dyson MD [facility] CPT-73081 Level 4 Est. Patient 14:00:53 CDT Uriel bhatia [facility] CPT-09203 Level 3 Est. Patient 20:00:09 CDT Terry jenkins DO [facility] CPT-84671 Level 3 Est. Patient 08:45:08 CDT Uriel bhatia [facility] CPT-85889 Level 3 Est. Patient 09:09:26 CDT Uriel Ivy sriram [facility] CPT-02464 Level 3 Est. Patient 16:32:31 CDT Adrián dyson MD [facility] CPT-78338 Level 3 Est. Patient 09:35:27 COURT SPECIALIST Norman fuentes [facility] CPT-75386 Level 2 Est. Patient 16:51:37 COURT SPECIALIST Adrián dyson MD [facility] CPT-59599 Level 3 Est. Patient 10:00:11 COURT SPECIALIST Ace Arriaza MD [facility] Procedures Code Procedure Name Date Entry Date Standard Desc ription CPT-J3420 B12 Injection 16:53:03 CDT CPT-000 Give Gardasil 08:59:32 CDT CPT-000 Give Immunizations Due 08:59:32 CDT CPT-26038 First Vx - Ix admin via ID I M or jet injects without counseling by physician 09:15:14 CDT CPT-42085 Meningococcal B, recombinant vaccine 09:15:14 CDT CPT-05889 Addl Vx - Ix admin via ID IM or jet injects without counseling by physician 15:35:10 CDT CPT-79162 Meningococcal B, recombinant vaccine 15:35:10 CDT CPT-97627 First Vx - Ix admin via ID I M or jet injects without counseling by physician 15:35:10 CDT CPT-97819 Havrix Intramuscular Suspension 720 EL U /0.5ML 15:35:10 CDT CPT-70569 First Vx - Ix admin via ID I M or jet injects without counseling by physician 14:18:02 CDT CPT-00814 Gardasil 9 Intramuscular Suspension 1 4:18:02 CDT CPT-J3420 Vitamin B12 1000mcg (Cyanocobalamin) 16:30:23 CDT CPT-71162 Abx/Therapy Injection 16:30:23 CDT CPT-J3420 Vitamin B12 1000mcg (Cyanocobalamin) 16:09:42 CDT CPT-43470 Abx/Therapy Injection 16:09:42 CDT CPT-J3420 Vitamin B12 1000mcg (Cyanocobalamin) 15:22:47 CDT CPT-76852 Abx/Therapy Injection 15:22:47 CDT CPT-J3420 Vitamin B12 1000mcg (Cyanocobalamin) 17:00:35 CDT CPT-24274 Abx/Therapy Injection 17:00:35 CDT CPT-90905 First Vx - Ix admin via ID I M or jet injects without counseling by physician 16:04:17 [address] SPECIALIST CPT-03206 Gardasil 9 Intramuscular Suspension 1 6:04:17 COURT SPECIALIST CPT-77409 Venipuncture Draw Fee 09:40:26 CDT CPT-74333 [place] [facility] - LAB USE ONLY 09:40:26 CDT 11/30 CPT-91873 CBC with Diff - LAB USE ONLY 09:40:26 CDT 2 CPT-27795 Addl Vx - Ix admin via ID IM or jet injects without counseling by physician 09:40:21 CDT CPT-36092 Menactra Intramuscular Injectable 09:40:21 CDT CPT-97871 Addl Vx - Ix admin via ID IM or jet injects without counseling by physician 09:40:21 CDT CPT-27233 Gardasil 9 Intramuscular Suspension 0 9:40:21 CDT CPT-20745 First Vx - Ix admin via ID I M or jet injects without counseling by physician 09:40:21 CDT CPT-22582 Havrix Intramuscular Suspension 720 EL U /0.5ML 09:40:21 CDT CPT-J2930 Solu Medrol 125 mg (Methyl Prednisolone Sodium Succinate) 09:43:26 CDT CPT-29018 Abx/Therapy Injection 09:43:26 CDT CPT-J2930 Solu Medrol 125 mg (Methyl Prednisolone Sodium Succinate) 09:05:55 CDT CPT-85544 Abx/Therapy Injection 09:05:55 CDT CPT-08136 Venipuncture Draw Fee 14:01:33 CDT CPT-85274 EKG Trac and Interp 11:22:04 CDT CPT-68890 Venipuncture Draw Fee 10:53:35 CDT CPT-J2930 Solu Medrol 125 mg (Methyl Prednisolone Sodium Succinate) 09:29:26 CDT CPT-98587 Abx/Therapy Injection 09:29:26 CDT CPT-Cryo Cryotherapy 16:51:37 COURT SPECIALIST
--- OUTSIDE RECORDS SUMMARY | 2019-07-22 19:27 | XMS REPORT | Clinical Summary ---
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 related conditions Contraceptive [...] unspecified degree Body Mass Index 23.0-23.9 Adult Active 2017 Adrián Varghese MD Body Mass Index between 19-24, adult Body Mass Index Percentile Pediatric 5th percentile to less than 85th percentile for age Active Adrián Varghese MD Body Mass Index, pediatric, 5th percentile to less than 85th percentile for age ACUTE BRONCHITIS ICD-466.0 Inactive Adrián hughes MD [...] Name NDC Status Provider Patient Instruction VIIBRYD 20 MG ORAL TABLET take 1 tab po qday for mood VILAZODONE HCL 55408951497 Active Adrián Varghese MD Active ESCITALOPRAM OXALATE 10 MG ORAL TABLET take 1 tab for mood 09/29 ESCITALOPRAM OXALATE 62773721551 No Longer Active Adrián Varghese MD Active BUSPIRONE HCL 7.5 MG ORAL TABLET PRN BUS PIRONE HCL 52181819359 No Longer Active Adrián Varghese MD Active PROZAC 20 MG ORAL CAPSULE PRN FLUOXETINE H CL 27598894717 No Longer Active Adrián Varghese MD Active SULFAMETHOXAZOLE-TRIMETHOPRIM 800-160 MG ORAL TABLET T QUINCY 1 TABLET BY MOUTH DAILY DIRECTED SULFAMETHOXAZOLE-TRIMETHOPRIM 23731909181 No Longer Active Madelin Hatch MD Active ABSORICA 20 MG ORAL CAPSULE 1 tablet daily ISOT RETINOIN 96147786191 Active Madelin Hatch MD Active ACZONE 5 % EXTERNAL GEL apply once daily to face 5 DAPSONE 67684821462 No Longer Active Madelin Hatch MD Active PROZAC 10 MG ORAL CAPSULE Take 1 tab daily for 1 week. Then increase to 20mg daily. FLUOXETINE HCL 08481868816 No Longer Active Yulissa Evans APRN Active CITALOPRAM HYDROBROMIDE 20 MG ORAL TABLET take 1 tab p o qday for depresion and anxiety. CITALOPRAM HYDROBROMIDE 06507563457 No L onger Active Shannan Evans APRN Active CYANOCOBALAMIN 1000 MCG/ML INJECTION SOLUTION 1 inject ion weekly for 1 month, than 1 a month for 2 months. recheck lab CYANOCO BALAMIN 90098584095 No Longer Active Shannan Evans APRN Active ULTRAM 50 MG ORAL TABLET 1 TAB PO Q 6 HRS PRN HEADACHE TRAMADOL HCL 66327380486 Active Adrián Varghese MD Active ULTRAM 50 MG ORAL TABLET take 1 tab po q 6 hrs prn headache pain TRAMADOL HCL 02933741970 No Longer Active Adrián Varghese MD Active CLINDAMYCIN PHOSPHATE 2 % VAGINAL CREAM apply cream to acne BID prn CLINDAMYCIN PHOSPHATE 53712542630 No Longer Active Adrián dyson MD Active MINOCYCLINE HCL 100 MG ORAL CAPSULE take one po BID 20 13/11/25 MINOCYCLINE HCL 16502750325 No Longer Active Adrián Varghese MD A ctive TRI-SPRINTEC 0.18/0.215/0.25 MG-35 MCG ORAL TABLET 1 po qd a s directed NORGESTIM-ETH ESTRAD TRIPHASIC 65773130937 Active Madelin Hatch MD Active ZITHROMAX 250 MG ORAL TABLET 2 po today, then 1 po q days 2-5 20 12/07/06 AZITHROMYCIN 75928128190 No Longer Active Adrián Varghese MD Active ZITHROMAX 250 MG ORAL TABLET 2 po today, then 1 po q days 2-5 20 11/06/16 AZITHROMYCIN 84119549127 No Longer Active Adrián Varghese MD Active PREDNISONE 20 MG ORAL TABLET 2 tabs daily for 3 days, 1 tab daily for 3 days, 1/2 tab daily for 2 days PREDNISONE 52576812601 No Longer Active Adrián Varghese MD Active ZANTAC 75 75 MG ORAL TABLET take 1 po BID RANIT IDINE HCL 06304632836 No Longer Active Uriel BOYD Active BENZACLIN 1-5 % EXTERNAL GEL apply to skin BID prn for acne 2012 CLINDAMYCIN PHOS-BENZOYL PEROX 65917436522 No Longer Active Uriel BOYD Active BENZACLIN 1-5 % EXTERNAL GEL apply to skin BID prn for acne 2012 BENZACLIN 1-5 % EXTERNAL GEL 851076 CLINDAMYCIN PHOS-BE NZOYL PEROX Inactive MINOCYCLINE HCL 100 MG ORAL CAPSULE take one po BID 13/11/25 MINOCYCLINE HCL 100 MG ORAL CAPSULE 198176 MINOCYCLINE HCL Inac tive CLINDAMYCIN PHOSPHATE 2 % VAGINAL CREAM apply cream to acne BID prn CLINDAMYCIN PHOSPHATE 2 % VAGINAL CREAM 372530 CLINDAMY ANGELIA PHOSPHATE Inactive ULTRAM 50 MG ORAL TABLET take 1 tab po q 6 hrs prn headache pain ULTRAM 50 MG ORAL TABLET 303581 TRAMADOL HCL Inactiv e CYANOCOBALAMIN 1000 MCG/ML INJECTION SOLUTION 1 inject ion weekly for 1 month, than 1 a month for 2 months. recheck lab CYANOCOBALAMIN 1000 MCG/ML INJECTION SOLUTION 853469 CYANOCOBALAMIN Inactive CITALOPRAM HYDROBROMIDE 20 MG ORAL TABLET take 1 tab p o qday for depresion and anxiety. CITALOPRAM HYDROBROMIDE 20 MG ORAL TABLET 683771 CITALOPRAM HYDROBROMIDE Inactive PROZAC 10 MG ORAL CAPSULE Take 1 tab daily for 1 week. Then increase to 20mg daily. PROZAC 10 MG ORAL CAPSULE 588025 FLUOXETINE HCL Inactive ACZONE 5 % EXTERNAL GEL apply once daily to face 07/22 ACZONE 5 % EXTERNAL GEL 071879 DAPSONE Inactive SULFAMETHOXAZOLE-TRIMETHOPRIM 800-160 MG ORAL TABLET T QUINCY 1 TABLET BY MOUTH DAILY DIRECTED SULFAMETHOXAZOLE-TRI METHOPRIM 800-160 MG ORAL TABLET 433310 SULFAMETHOXAZOLE-TRIMETHOPRIM Inactive PROZAC 20 MG ORAL CAPSULE PRN PROZAC 20 MG ORAL CAPSULE 198217 FLUOXETINE HCL Inactive BUSPIRONE HCL 7.5 MG ORAL TABLET PRN BUSPIRONE HCL 7.5 MG ORAL TABLET 446512 BUSPIRONE HCL Inactive ESCITALOPRAM OXALATE 10 MG ORAL TABLET take 1 tab for mood 09/29 ESCITALOPRAM OXALATE 10 MG ORAL TABLET 169731 ESCITALOP VINCE OXALATE Inactive ZANTAC 75 75 MG ORAL TABLET take 1 po BID ZANTAC 75 75 MG ORAL TABLET 673117 RANITIDINE HCL Inactive PREDNISONE 20 MG ORAL TABLET 2 tabs daily for 3 days, 1 tab daily for 3 days, 1/2 tab daily for 2 days PREDNISONE 20 MG ORAL T ABLET 937473 PREDNISONE Inactive ZITHROMAX 250 MG ORAL TABLET 2 po today, then 1 po q days 2-5 20 11/06/16 ZITHROMAX 250 MG ORAL TABLET 785943 AZITHROMYCIN [place] ct[facility] ZITHROMAX 250 MG ORAL TABLET 2 po today, then 1 po q days 2-5 20 12/07/06 ZITHROMAX 250 MG ORAL TABLET 773703 AZITHROMYCIN [place] ct[facility] Advance Directives Directive Description Start Date [...] Value Unit Range Description blood pressure, diastolic 64 mm[Hg] BP jones [...] weight E&M 150 [lb_av] Weight Measure d blood pressure, diastolic 66 mm[Hg] BP jones blood pressure, systolic 113 mm[Hg] BP sys height E&M 66 [in_us] Bdy height pulse rate E&M 84 /min Heart rate temperature E&M 97.2 [degF] Body temp erature weight E&M 145 [lb_av] Weight Measure d blood pressure, diastolic 82 mm[Hg] BP jones blood pressure, systolic 136 mm[Hg] BP sys height E&M 66 [in_us] Bdy height pulse rate E&M 89 /min Heart rate temperature E&M 98.4 [degF] Body temp erature weight E&M 148 [lb_av] Weight Measure d Diagnostic Results Date Name Value Unit Range Description Lab Report: Chlamydia/GC APTIMA/33560 - Lab chlamydia DNA probe NOT DETECTED NOT DETECTED chlamydia DNA probe NOT DETECTED NOT DETECTED Lab Report: Chlamydia/GC APTIMA/85227 - Microbiology Neisseria gonorrhoeae DNA probe NOT DETECTED NO T DETECTED Neisseria gonorrhoeae DNA probe NOT DETECTED NO T DETECTED Lab Report: Comp. Metabolic Panel - Chem istry sodium, serum 141 mmol/L 045-630 7141/11/22 carbon dioxide, venous blood 25.2 mmol/L 21.0-32 .0 potassium, serum 3.8 mmol/L 3.5-5.2 chloride, serum 104 mmol/L 98-107 blood glucose 95 mg/dL 65-110 urea nitrogen, blood 15 mg/dL 7-18 creatinine, serum 0.79 mg/dL 0.60-1.30 alanine aminotransferase (SGPT), serum 28 U/L 10-55 aspartate aminotransferase (SGOT), serum 17 U/L 15-45 calcium, serum 8.9 mg/dL 8.5-10.1 bilirubin, serum, total 0.30 mg/dL 0.20-1.00 Lab Report: UADIP W/MICRO, AUTO - Chemis try protein, total urine random Negative mg/dL Negative RBC, urine, dipstick Negative Negative Lab Report: UADIP W/MICRO, AUTO - Urinal ysis urobilinogen, urine, semiquantitative (dipstick) 0.2 E .U./dL Normal leukocyte esterase, urine, by dipstick Negative Negative nitrite, urine, semiquantitative Negative Neg ative glucose, urine, semiquantitative Negative Neg ative ketones, urine, by test strip Negative Negati ve bilirubin, urine Negative Negative urine color Yellow Colorless;Lightyellow;St raw;Yellow appearance, urine Clear Clear specific gravity, urine 1.015 1.000-1.030 pH, urine, semiquantitative 7.0 5.0-8.5 Encounters Code Encounter Date Provider Facility CPT-55257 40037-Cmd Vst-Est Level III 11:10:06 CDT Adrián Varghese MD [facility] CPT-21805 Level 4 Est. Patient 09:07:11 CDT Adrián dyson MD [facility] CPT-48902 Level 3 New Patient 12:59:59 CDT Madelin almodovar MD [facility]-93643 Level 3 Est. Patient 10:07:39 JAVA TECHNICAL MANAGER Cale morris [facility] CPT-09529 Level 3 Est. Patient 11:35:37 JAVA TECHNICAL MANAGER Cale Edison arturo [facility] CPT-20223 Level 4 Est. Patient 11:10:55 CDT Shannan Are ll [facility] CPT-16615 Level 4 Est. Patient 14:07:40 CDT Shannan Are ll [facility] CPT-62220 Level 4 Est. Patient 13:54:09 CDT Adrián dyson MD [facility] CPT-43785 Level 3 Est. Patient 09:22:14 CDT Adrián dyson MD [facility] CPT-09144 Level 3 Est. Patient 08:59:31 CDT Adrián dyson MD [facility] CPT-68857 Level 3 Est. Patient 11:58:31 CDT Adrián dyson MD [facility] CPT-52515 Level 3 Est. Patient 09:06:35 CDT Adrián dyson MD [facility] CPT-53852 Level 3 Est. Patient 09:18:45 CDT Adrián dyson MD [facility] CPT-45035 Level 3 Est. Patient 09:13:22 CDT Adrián dyson MD [facility] CPT-29095 Level 3 Est. Patient 18:04:31 JAVA TECHNICAL MANAGER Adrián dyson MD [facility] CPT-46738 Level 4 Est. Patient 14:00:53 CDT Demie Ahl sriram [facility] CPT-03871 Level 3 Est. Patient 20:00:09 CDT Terry jenkins DO [facility] CPT-02467 Level 3 Est. Patient 08:45:08 CDT Uriel Ivy sriram [facility] CPT-27000 Level 3 Est. Patient 09:09:26 CDT Uriel Ramirezclarissa bhatia [facility] CPT-47027 Level 3 Est. Patient 16:32:31 CDT Adrián dyson MD [facility] CPT-04452 Level 3 Est. Patient 09:35:27 JAVA TECHNICAL MANAGER Norman fuentes [facility] CPT-79992 Level 2 Est. Patient 16:51:37 JAVA TECHNICAL MANAGER Adrián dyson MD [facility] CPT-54872 Level 3 Est. Patient 10:00:11 JAVA TECHNICAL MANAGER Ace Arriaza MD [facility] Procedures Code Procedure Name Date Entry Date Standard Desc ription CPT-93371 First Vx - Ix admin via ID I M or jet injects without counseling by physician 09:15:14 CDT CPT-32560 Meningococcal B, recombinant vaccine 09:15:14 CDT CPT-72394 Addl Vx - Ix admin via ID IM or jet injects without counseling by physician 15:35:10 CDT CPT-04852 Meningococcal B, recombinant vaccine 15:35:10 CDT CPT-88478 First Vx - Ix admin via ID I M or jet injects without counseling by physician 15:35:10 CDT CPT-48199 Havrix Intramuscular Suspension 720 EL U /0.5ML 15:35:10 CDT CPT-16329 First Vx - Ix admin via ID I M or jet injects without counseling by physician 14:18:02 CDT CPT-86484 Gardasil 9 Intramuscular Suspension 1 4:18:02 CDT CPT-J3420 Vitamin B12 1000mcg (Cyanocobalamin) 16:30:23 CDT CPT-13749 Abx/Therapy Injection 16:30:23 CDT CPT-J3420 Vitamin B12 1000mcg (Cyanocobalamin) 16:09:42 CDT CPT-12027 Abx/Therapy Injection 16:09:42 CDT CPT-J3420 Vitamin B12 1000mcg (Cyanocobalamin) 15:22:47 CDT CPT-73741 Abx/Therapy Injection 15:22:47 CDT CPT-J3420 Vitamin B12 1000mcg (Cyanocobalamin) 17:00:35 CDT CPT-69815 Abx/Therapy Injection 17:00:35 CDT CPT-53846 First Vx - Ix admin via ID I M or jet injects without counseling by physician 16:04:17 JAVA TECHNICAL MANAGER CPT-52365 Gardasil 9 Intramuscular Suspension 1 6:04:17 JAVA TECHNICAL MANAGER CPT-74232 Venipuncture Draw Fee 09:40:26 CDT CPT-92159 [place] [facility] - LAB USE ONLY 09:40:26 CDT 11/30 CPT-05272 CBC with Diff - LAB USE ONLY 09:40:26 CDT 2 CPT-86376 Addl Vx - Ix admin via ID IM or jet injects without counseling by physician 09:40:21 CDT CPT-59898 Menactra Intramuscular Injectable 09:40:21 CDT CPT-89743 Addl Vx - Ix admin via ID IM or jet injects without counseling by physician 09:40:21 CDT CPT-01946 Gardasil 9 Intramuscular Suspension 0 9:40:21 CDT CPT-74038 First Vx - Ix admin via ID I M or jet injects without counseling by physician 09:40:21 CDT CPT-19649 Havrix Intramuscular Suspension 720 EL U /0.5ML 09:40:21 CDT CPT-J2930 Solu Medrol 125 mg (Methyl Prednisolone Sodium Succinate) 09:43:26 CDT CPT-92545 Abx/Therapy Injection 09:43:26 CDT CPT-J2930 Solu Medrol 125 mg (Methyl Prednisolone Sodium Succinate) 09:05:55 CDT CPT-89748 Abx/Therapy Injection 09:05:55 CDT CPT-64539 Venipuncture Draw Fee 14:01:33 CDT CPT-71662 EKG Trac and Interp 11:22:04 CDT CPT-90516 Venipuncture Draw Fee 10:53:35 CDT CPT-J2930 Solu Medrol 125 mg (Methyl Prednisolone Sodium Succinate) 09:29:26 CDT CPT-65550 Abx/Therapy Injection 09:29:26 CDT CPT-Cryo Cryotherapy 16:51:37 JAVA TECHNICAL MANAGER
--- OUTSIDE RECORDS SUMMARY | 2019-07-22 19:27 | XMS REPORT | Clinical Summary ---
Author Author Yovanny, Clarisa Christopher Organization [facility] Address Unknown Phone Unavailable Allergies, Adverse Reactions, [...] of psychotic behavior B12 deficiency 266.2 Active Samreenjamal Lemons Other B-complex deficiencies Muscle cramps 729.82 Resolved Adrián Varghese MD Cramp of limb Vaginal lesion 623.8 Resolved Adrián Joseph Other specified noninflammatory disorders of vagina Dermatitis, atopic 691.8 Active Cale Lopez [employer] SAL[employer]IATE Other atopic dermatitis and related conditions Contraceptive [...] tab po qday for mood VILAZODONE HCL 37669656794 Active Adrián Varghese MD Active ESCITALOPRAM OXALATE 10 MG ORAL TABLET take 1 tab for mood 09/29 ESCITALOPRAM OXALATE 25260959628 No Longer Active Adrián Varghese MD Active BUSPIRONE HCL 7.5 MG ORAL TABLET PRN BUS PIRONE HCL 43152518134 No Longer Active Adrián Varghese MD Active PROZAC 20 MG ORAL CAPSULE PRN FLUOXETINE H CL 62688150147 No Longer Active Adrián Varghese MD Active SULFAMETHOXAZOLE-TRIMETHOPRIM 800-160 MG ORAL TABLET T QUINCY 1 TABLET BY MOUTH DAILY DIRECTED SULFAMETHOXAZOLE-TRIMETHOPRIM 42218283505 No Longer Active Madelin Hatch MD Active ABSORICA 20 MG ORAL CAPSULE 1 tablet daily ISOT RETINOIN 89140599720 Active Madelin Hatch MD Active ACZONE 5 % EXTERNAL GEL apply once daily to face 5 DAPSONE 43335805802 No Longer Active Madelin Hatch MD Active PROZAC 10 MG ORAL CAPSULE Take 1 tab daily for 1 week. Then increase to 20mg daily. FLUOXETINE HCL 67691573639 No Longer Active Yulissa Evans APRN Active CITALOPRAM HYDROBROMIDE 20 MG ORAL TABLET take 1 tab p o qday for depresion and anxiety. CITALOPRAM HYDROBROMIDE 82923505762 No L onger Active Shannan Evans APRN Active CYANOCOBALAMIN 1000 MCG/ML INJECTION SOLUTION 1 inject ion weekly for 1 month, than 1 a month for 2 months. recheck lab CYANOCO BALAMIN 70892666928 No Longer Active Shannan Evans APRN Active ULTRAM 50 MG ORAL TABLET 1 TAB PO Q 6 HRS PRN HEADACHE TRAMADOL HCL 79050428336 Active Adrián Varghese MD Active ULTRAM 50 MG ORAL TABLET take 1 tab po q 6 hrs prn headache pain TRAMADOL HCL 56211350128 No Longer Active Adrián Varghese MD Active CLINDAMYCIN PHOSPHATE 2 % VAGINAL CREAM apply cream to acne BID prn CLINDAMYCIN PHOSPHATE 29324737424 No Longer Active Adrián dyson MD Active MINOCYCLINE HCL 100 MG ORAL CAPSULE take one po BID 20 13/11/25 MINOCYCLINE HCL 64094190362 No Longer Active Adrián Varghese MD A ctive TRI-SPRINTEC 0.18/0.215/0.25 MG-35 MCG ORAL TABLET 1 po qd a s directed NORGESTIM-ETH ESTRAD TRIPHASIC 81469864476 Active Madelin Hatch MD Active ZITHROMAX 250 MG ORAL TABLET 2 po today, then 1 po q days 2-5 20 12/07/06 AZITHROMYCIN 24293442747 No Longer Active Adrián Varghese MD Active ZITHROMAX 250 MG ORAL TABLET 2 po today, then 1 po q days 2-5 20 11/06/16 AZITHROMYCIN 10552927153 No Longer Active Adrián Varghese MD Active PREDNISONE 20 MG ORAL TABLET 2 tabs daily for 3 days, 1 tab daily for 3 days, 1/2 tab daily for 2 days PREDNISONE 34007483352 No Longer Active Adrián Varghese MD Active ZANTAC 75 75 MG ORAL TABLET take 1 po BID RANIT IDINE HCL 44846457556 No Longer Active Uriel BOYD Active BENZACLIN 1-5 % EXTERNAL GEL apply to skin BID prn for acne 2012 CLINDAMYCIN PHOS-BENZOYL PEROX 03527347014 No Longer Active Uriel BOYD Active BENZACLIN 1-5 % EXTERNAL GEL apply to skin BID prn for acne 2012 BENZACLIN 1-5 % EXTERNAL GEL 052568 CLINDAMYCIN PHOS-BE NZOYL PEROX Inactive MINOCYCLINE HCL 100 MG ORAL CAPSULE take one po BID 13/11/25 MINOCYCLINE HCL 100 MG ORAL CAPSULE 671598 MINOCYCLINE HCL Inac tive CLINDAMYCIN PHOSPHATE 2 % VAGINAL CREAM apply cream to acne BID prn CLINDAMYCIN PHOSPHATE 2 % VAGINAL CREAM 837934 CLINDAMY ANGELIA PHOSPHATE Inactive ULTRAM 50 MG ORAL TABLET take 1 tab po q 6 hrs prn headache pain ULTRAM 50 MG ORAL TABLET 527883 TRAMADOL HCL Inactiv e CYANOCOBALAMIN 1000 MCG/ML INJECTION SOLUTION 1 inject ion weekly for 1 month, than 1 a month for 2 months. recheck lab CYANOCOBALAMIN 1000 MCG/ML INJECTION SOLUTION 374410 CYANOCOBALAMIN Inactive CITALOPRAM HYDROBROMIDE 20 MG ORAL TABLET take 1 tab p o qday for depresion and anxiety. CITALOPRAM HYDROBROMIDE 20 MG ORAL TABLET 447975 CITALOPRAM HYDROBROMIDE Inactive PROZAC 10 MG ORAL CAPSULE Take 1 tab daily for 1 week. Then increase to 20mg daily. PROZAC 10 MG ORAL CAPSULE 042612 FLUOXETINE HCL Inactive ACZONE 5 % EXTERNAL GEL apply once daily to face 07/22 ACZONE 5 % EXTERNAL GEL 965214 DAPSONE Inactive SULFAMETHOXAZOLE-TRIMETHOPRIM 800-160 MG ORAL TABLET T QUINCY 1 TABLET BY MOUTH DAILY DIRECTED SULFAMETHOXAZOLE-TRI METHOPRIM 800-160 MG ORAL TABLET 295449 SULFAMETHOXAZOLE-TRIMETHOPRIM Inactive PROZAC 20 MG ORAL CAPSULE PRN PROZAC 20 MG ORAL CAPSULE 654260 FLUOXETINE HCL Inactive BUSPIRONE HCL 7.5 MG ORAL TABLET PRN BUSPIRONE HCL 7.5 MG ORAL TABLET 831694 BUSPIRONE HCL Inactive ESCITALOPRAM OXALATE 10 MG ORAL TABLET take 1 tab for mood 09/29 ESCITALOPRAM OXALATE 10 MG ORAL TABLET 072500 ESCITALOP VINCE OXALATE Inactive ZANTAC 75 75 MG ORAL TABLET take 1 po BID ZANTAC 75 75 MG ORAL TABLET 608383 RANITIDINE HCL Inactive PREDNISONE 20 MG ORAL TABLET 2 tabs daily for 3 days, 1 tab daily for 3 days, 1/2 tab daily for 2 days PREDNISONE 20 MG ORAL T ABLET 034280 PREDNISONE Inactive ZITHROMAX 250 MG ORAL TABLET 2 po today, then 1 po q days 2-5 20 11/06/16 ZITHROMAX 250 MG ORAL TABLET 063191 AZITHROMYCIN Alesia ctive ZITHROMAX 250 MG ORAL TABLET 2 po today, then 1 po q days 2-5 20 12/07/06 ZITHROMAX 250 MG ORAL TABLET 461101 AZITHROMYCIN [employer] [place] ctive Advance Directives Directive Description Start Date [...] Value Unit Range Description Lab Report: Chlamydia/GC APTIMA/67657 - Lab chlamydia DNA probe NOT DETECTED NOT DETECTED chlamydia DNA probe NOT DETECTED NOT DETECTED Lab Report: Chlamydia/GC APTIMA/72686 - Microbiology Neisseria gonorrhoeae DNA probe NOT DETECTED NO T DETECTED Neisseria gonorrhoeae DNA probe NOT DETECTED NO T DETECTED Lab Report: Comp. Metabolic Panel - Chem istry sodium, serum 141 mmol/L 546-581 0798/11/22 carbon dioxide, venous blood 25.2 mmol/L 21.0-32 [...] 5.0-8.5 Encounters Code Encounter Date Provider Facility CPT-83511 [id number] Vst-Est Level III 11:10:06 CDT Adrián Varghese MD [facility] CPT-67368 Level 4 Est. Patient 09:07:11 CDT Adrián dyson MD [facility] CPT-49694 Level 3 New Patient 12:59:59 CDT Madelin almodovar MD [facility]-55487 Level 3 Est. 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 Patient 11:35:37 FURNITURE SPRAYER Cale Edison arturo [facility] CPT-40303 Level 4 Est. Patient 11:10:55 CDT Shannan Are [facility] CPT-39659 Level 4 Est. Patient 14:07:40 CDT Shannan Are [facility] CPT-36855 Level 4 Est. Patient 13:54:09 CDT Adrián dyson MD [facility]-87296 Level 3 Est. Patient 09:22:14 CDT Adrián dyson MD [facility]-02754 Level 3 Est. Patient 08:59:31 CDT Adrián dyson MD [facility] CPT-18459 Level 3 Est. Patient 11:58:31 CDT Adrián dyson MD [facility] CPT-73416 Level 3 Est. Patient 09:06:35 CDT Adrián dyson MD [facility] CPT-81529 Level 3 Est. Patient 09:18:45 CDT Adrián dyson MD [facility] CPT-70355 Level 3 Est. Patient 09:13:22 CDT Adrián dyson MD [facility] CPT-95241 Level 3 Est. Patient 18:04:31 FURNITURE SPRAYER Adrián dyson MD [facility] CPT-69285 Level 4 Est. Patient 14:00:53 CDT Uriel BOYD [facility] CPT-87992 Level 3 Est. Patient 20:00:09 CDT Terry jenkins DO [facility] CPT-24063 Level 3 Est. Patient 08:45:08 CDT Uriel Ashleyclarissa bhatia [facility] CPT-29663 Level 3 Est. Patient 09:09:26 CDT Uriel bhatia [facility] CPT-00266 Level 3 Est. Patient 16:32:31 CDT Adrián dyson MD [facility] CPT-76331 Level 3 Est. Patient 09:35:27 FURNITURE SPRAYER Norman fuentes [facility] CPT-32326 Level 2 Est. Patient 16:51:37 FURNITURE SPRAYER Adrián dyson MD [facility] CPT-38206 Level 3 Est. Patient 10:00:11 FURNITURE SPRAYER Ace Arriaza MD [facility] Procedures Code Procedure Name Date Entry Date Standard Desc ription CPT-20152 First Vx - Ix admin via ID I M or jet injects without counseling by physician 09:15:14 CDT CPT-23088 Meningococcal B, recombinant vaccine 09:15:14 CDT CPT-43783 Addl Vx - Ix admin via ID IM or jet injects without counseling by physician 15:35:10 CDT CPT-47595 Meningococcal B, recombinant vaccine 15:35:10 CDT CPT-72338 First Vx - Ix admin via ID I M or jet injects without counseling by physician 15:35:10 CDT CPT-12877 Havrix Intramuscular Suspension 720 EL U /0.5ML 15:35:10 CDT CPT-92552 First Vx - Ix admin via ID I M or jet injects without counseling by physician 14:18:02 CDT CPT-91233 Gardasil 9 Intramuscular Suspension 1 4:18:02 CDT CPT-J3420 Vitamin B12 1000mcg (Cyanocobalamin) 16:30:23 CDT CPT-69963 Abx/Therapy Injection 16:30:23 CDT CPT-J3420 Vitamin B12 1000mcg (Cyanocobalamin) 16:09:42 CDT CPT-08311 Abx/Therapy Injection 16:09:42 CDT CPT-J3420 Vitamin B12 1000mcg (Cyanocobalamin) 15:22:47 CDT CPT-52246 Abx/Therapy Injection 15:22:47 CDT CPT-J3420 Vitamin B12 1000mcg (Cyanocobalamin) 17:00:35 CDT CPT-27940 Abx/Therapy Injection 17:00:35 CDT CPT-98221 First Vx - Ix admin via ID I M or jet injects without counseling by physician 16:04:17 FURNITURE SPRAYER CPT-20140 Gardasil 9 Intramuscular Suspension 1 6:04:17 FURNITURE SPRAYER CPT-02610 Venipuncture Draw Fee 09:40:26 CDT CPT-97964 [place] [facility] - LAB USE ONLY 09:40:26 CDT 11/30 CPT-96423 CBC with Diff - LAB USE ONLY 09:40:26 CDT 2 CPT-35650 Addl Vx - Ix admin via ID IM or jet injects without counseling by physician 09:40:21 CDT CPT-49300 Menactra Intramuscular Injectable 09:40:21 CDT CPT-77041 Addl Vx - Ix admin via ID IM or jet injects without counseling by physician 09:40:21 CDT CPT-77499 Gardasil 9 Intramuscular Suspension 0 9:40:21 CDT CPT-85195 First Vx - Ix admin via ID I M or jet injects without counseling by physician 09:40:21 CDT CPT-46159 Havrix Intramuscular Suspension 720 EL U /0.5ML 09:40:21 CDT CPT-J2930 Solu Medrol 125 mg (Methyl Prednisolone Sodium Succinate) 09:43:26 CDT CPT-08528 Abx/Therapy Injection 09:43:26 CDT CPT-J2930 Solu Medrol 125 mg (Methyl Prednisolone Sodium Succinate) 09:05:55 CDT CPT-29308 Abx/Therapy Injection 09:05:55 CDT CPT-38813 Venipuncture Draw Fee 14:01:33 CDT CPT-44410 EKG Trac and Interp 11:22:04 CDT CPT-87548 Venipuncture Draw Fee 10:53:35 CDT CPT-J2930 Solu Medrol 125 mg (Methyl Prednisolone Sodium Succinate) 09:29:26 CDT CPT-08550 Abx/Therapy Injection 09:29:26 CDT CPT-Cryo Cryotherapy 16:51:37 FURNITURE SPRAYER
--- OUTSIDE RECORDS SUMMARY | 2019-07-22 19:28 | XMS REPORT | Clinical Summary ---
Author Author Yovanny, Clarisa Christopher Organization [facility] Address Unknown Phone Unavailable Allergies, Adverse Reactions, [...] vagina Dermatitis, atopic 691.8 Active Cale Lopez [employer]ER Other atopic dermatitis and related conditions Contraceptive [...] Inactive Adrián leavitt MD Pharyngitis-Acute ICD-462 Inactive Adráin leavitt MD Headache ICD-784.0 Inactive Adrián Joseph Pharyngitis-Acute ICD-462 Inactive Adrián leavitt MD Myalgias ICD-729.1 Inactive Adrián Joseph Muscle cramps ICD-729.82 Inactive Adrián saldana MD Vaginal lesion ICD-623.8 Inactive Adrián saldana MD Medication List Medication Instructions Start Date Stop Date Generic Name NDC Status Provider Patient Instruction ESCITALOPRAM OXALATE 10 MG ORAL TABLET take 1 tab for mood ESCITALOPRAM OXALATE 75049175372 Active Adrián Varghese MD Active SULFAMETHOXAZOLE-TRIMETHOPRIM 800-160 MG ORAL TABLET T QUINCY 1 TABLET BY MOUTH DAILY DIRECTED SULFAMETHOXAZOLE-TRIMETHOPRIM 70307114712 No Longer Active Madelin Hatch MD Active BUSPIRONE HCL 7.5 MG ORAL TABLET PRN BUSPIR ONE HCL 73297646021 Active Madelin Hatch MD Active PROZAC 20 MG ORAL CAPSULE PRN FLUOXETINE HCL 0077 6678092 Active Madelin Hatch MD Active ABSORICA 20 MG ORAL CAPSULE 1 tablet daily ISOT RETINOIN 42208892288 Active Madelin Hatch MD Active ACZONE 5 % EXTERNAL GEL apply once daily to face 5 DAPSONE 25576158557 No Longer Active Madelin Hatch MD Active PROZAC 10 MG ORAL CAPSULE Take 1 tab daily for 1 week. Then increase to 20mg daily. FLUOXETINE HCL 45344975420 No Longer Active Yulissa Evans APRN Active CITALOPRAM HYDROBROMIDE 20 MG ORAL TABLET take 1 tab p o qday for depresion and anxiety. CITALOPRAM HYDROBROMIDE 91456274562 No L onger Active Shannan Evans APRN Active CYANOCOBALAMIN 1000 MCG/ML INJECTION SOLUTION 1 inject ion weekly for 1 month, than 1 a month for 2 months. recheck lab CYANOCO BALAMIN 50479219001 No Longer Active Shannan Evans APRN Active ULTRAM 50 MG ORAL TABLET 1 TAB PO Q 6 HRS PRN HEADACHE TRAMADOL HCL 91244797736 Active Adrián Varghese MD Active ULTRAM 50 MG ORAL TABLET take 1 tab po q 6 hrs prn headache pain TRAMADOL HCL 10980534966 No Longer Active Adrián Varghese MD Active CLINDAMYCIN PHOSPHATE 2 % VAGINAL CREAM apply cream to acne BID prn CLINDAMYCIN PHOSPHATE 08011513184 No Longer Active Adrián dyson MD Active MINOCYCLINE HCL 100 MG ORAL CAPSULE take one po BID 20 13/11/25 MINOCYCLINE HCL 96806605276 No Longer Active Adrián Varghese MD A ctive TRI-SPRINTEC 0.18/0.215/0.25 MG-35 MCG ORAL TABLET 1 po qd a s directed NORGESTIM-ETH ESTRAD TRIPHASIC 38012304666 Active Madelin Hatch MD Active ZITHROMAX 250 MG ORAL TABLET 2 po today, then 1 po q days 2-5 20 12/07/06 AZITHROMYCIN 41373444294 No Longer Active Adrián Varghese MD Active ZITHROMAX 250 MG ORAL TABLET 2 po today, then 1 po q days 2-5 20 11/06/16 AZITHROMYCIN 30710466119 No Longer Active Adrián Varghese MD Active PREDNISONE 20 MG ORAL TABLET 2 tabs daily for 3 days, 1 tab daily for 3 days, 1/2 tab daily for 2 days PREDNISONE 55113631298 No Longer Active Adrián Varghese MD Active ZANTAC 75 75 MG ORAL TABLET take 1 po BID RANIT IDINE HCL 89365185345 No Longer Active Uriel BOYD Active BENZACLIN 1-5 % EXTERNAL GEL apply to skin BID prn for acne 2012 CLINDAMYCIN PHOS-BENZOYL PEROX 67616081423 No Longer Active Uriel BOYD Active CYANOCOBALAMIN 1000 MCG/ML INJECTION SOLUTION 1 inject ion weekly for 1 month, than 1 a month for 2 months. recheck lab CYANOCOBALAMIN 1000 MCG/ML INJECTION SOLUTION 389682 CYANOCOBALAMIN Inactive MINOCYCLINE HCL 100 MG ORAL CAPSULE take one po BID 13/11/25 MINOCYCLINE HCL 100 MG ORAL CAPSULE 048547 MINOCYCLINE HCL Inac tive PREDNISONE 20 MG ORAL TABLET 2 tabs daily for 3 days, 1 tab daily for 3 days, 1/2 tab daily for 2 days PREDNISONE 20 MG ORAL T ABLET 965982 PREDNISONE Inactive PROZAC 10 MG ORAL CAPSULE Take 1 tab daily for 1 week. Then increase to 20mg daily. PROZAC 10 MG ORAL CAPSULE 923233 FLUOXETINE HCL Inactive CLINDAMYCIN PHOSPHATE 2 % VAGINAL CREAM apply cream to acne BID prn CLINDAMYCIN PHOSPHATE 2 % VAGINAL CREAM 277536 CLINDAMY ANGELIA PHOSPHATE Inactive SULFAMETHOXAZOLE-TRIMETHOPRIM 800-160 MG ORAL TABLET T QUINCY 1 TABLET BY MOUTH DAILY DIRECTED SULFAMETHOXAZOLE-TRI METHOPRIM 800-160 MG ORAL TABLET 417369 SULFAMETHOXAZOLE-TRIMETHOPRIM Inactive ULTRAM 50 MG ORAL TABLET take 1 tab po q 6 hrs prn headache pain ULTRAM 50 MG ORAL TABLET 229355 TRAMADOL HCL Inactiv e ZANTAC 75 75 MG ORAL TABLET take 1 po BID ZANTAC 75 75 MG ORAL TABLET 905564 RANITIDINE HCL Inactive ZITHROMAX 250 MG ORAL TABLET 2 po today, then 1 po q days 2-5 20 11/06/16 ZITHROMAX 250 MG ORAL TABLET 412377 AZITHROMYCIN Alesia ctive ZITHROMAX 250 MG ORAL TABLET 2 po today, then 1 po q days 2-5 20 12/07/06 ZITHROMAX 250 MG ORAL TABLET 507132 AZITHROMYCIN Alesia ctive CITALOPRAM HYDROBROMIDE 20 MG ORAL TABLET take 1 tab p o qday for depresion and anxiety. CITALOPRAM HYDROBROMIDE 20 MG ORAL TABLET 738431 CITALOPRAM HYDROBROMIDE Inactive BENZACLIN 1-5 % EXTERNAL GEL apply to skin BID prn for acne 2012 BENZACLIN 1-5 % EXTERNAL GEL 071278 CLINDAMYCIN PHOS-BE NZOYL PEROX Inactive ACZONE 5 % EXTERNAL GEL apply once daily to face 07/22 ACZONE 5 % EXTERNAL GEL 341003 DAPSONE Inactive Advance Directives Directive Description Start Date PERMISSION [...] Value Unit Range Description blood pressure, diastolic 69 mm[Hg] BP jones [...] weight E&M 148 [lb_av] Weight Measure d blood pressure, diastolic 68 mm[Hg] BP jones blood pressure, systolic 113 mm[Hg] BP sys pulse rate E&M 67 /min Heart rate temperature E&M 98.5 [degF] Body temp erature weight E&M 144 [lb_av] Weight Measure d blood pressure, diastolic 60 mm[Hg] BP jones blood pressure, systolic 115 mm[Hg] BP sys pulse rate E&M 77 /min Heart rate temperature E&M 98.9 [degF] Body temp erature weight E&M 147 [lb_av] Weight Measure d Diagnostic Results Date Name Value Unit Range Description Lab Report: Chlamydia/GC APTIMA/65740 - Lab chlamydia DNA probe NOT DETECTED NOT DETECTED chlamydia DNA probe NOT DETECTED NOT DETECTED Lab Report: Chlamydia/GC APTIMA/18048 - Microbiology Neisseria gonorrhoeae DNA probe NOT DETECTED NO T DETECTED Neisseria gonorrhoeae DNA probe NOT DETECTED NO T DETECTED Lab Report: Comp. Metabolic Panel - Chem istry sodium, serum 141 mmol/L 335-892 0042/11/22 carbon dioxide, venous blood 25.2 mmol/L 21.0-32 .0 potassium, serum 3.8 mmol/L 3.5-5.2 chloride, serum 104 mmol/L 98-107 blood glucose 95 mg/dL 65-110 urea nitrogen, blood 15 mg/dL 7-18 creatinine, serum 0.79 mg/dL 0.60-1.30 alanine aminotransferase (SGPT), serum 28 U/L 10- aspartate aminotransferase (SGOT), serum 17 U/L 15-45 calcium, serum 8.9 mg/dL 8.5-10.1 bilirubin, serum, total 0.30 mg/dL 0.20-1.00 sodium, serum 139 mmol/L 385-489 9547/09/06 urea nitrogen, blood 14 mg/dL 7-18 creatinine, serum 1.16 mg/dL 0.60-1.30 alanine aminotransferase (SGPT), serum 21 U/L - aspartate aminotransferase (SGOT), serum 14 U/L 15-45 calcium, serum 8.7 mg/dL 8.5-10.1 bilirubin, serum, total 0.20 mg/dL 0.20-1.00 blood glucose 85 mg/dL 65-110 chloride, serum 102 mmol/L 98-107 potassium, serum 3.8 mmol/L 3.5-5.2 carbon dioxide, venous blood 25.3 mmol/L 21.0-32 .0 Lab Report: UADIP W/MICRO, AUTO - Chemis [...] 5.0-8.5 Encounters Code Encounter Date Provider Facility CPT-65124 Level 4 Est. Patient 09:07:11 CDT Adrián dyson MD [facility] CPT-97289 Level 3 New Patient 12:59:59 CDT Madelin almodovar MD [facility]-14079 Level 3 Est. 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 Patient 11:10:55 CDT Shannan Are [facility]-10292 Level 4 Est. Patient 14:07:40 CDT Shannan Are [facility]-16616 Level 4 Est. Patient 13:54:09 CDT Adrián dyson MD [facility]-82822 Level 3 Est. Patient 09:22:14 CDT Adrián dyson MD [facility]-32616 Level 3 Est. Patient 08:59:31 CDT Adrián dyson MD [facility]-11490 Level 3 Est. Patient 11:58:31 CDT Adrián dyson MD [facility] CPT-80360 Level 3 Est. Patient 09:06:35 CDT Adrián dyson MD [facility] CPT-32449 Level 3 Est. Patient 09:18:45 CDT Adrián dyson MD [facility] CPT-04146 Level 3 Est. Patient 09:13:22 CDT Adrián dyson MD [facility] CPT-63706 Level 3 Est. 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 Patient 14:00:53 CDT Uriel Ashleyclarissa hintonsriram [facility] CPT-69317 Level 3 Est. Patient 20:00:09 CDT Terry jenkins DO [facility] CPT-78173 Level 3 Est. Patient 08:45:08 CDT Richcristian Ashleyclarissa bhatia [facility] CPT-72208 Level 3 Est. Patient 09:09:26 CDT Richcristian Ashleyclarissa bhatia [facility] CPT-24134 Level 3 Est. Patient 16:32:31 CDT Adrián dyson MD [facility] CPT-25386 Level 3 Est. 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 Patient 10:00:11 SUPERVISOR [employer]ENDING ACTIVITIES Ace Arriaza MD [facility] Procedures Code Procedure Name Date Entry Date Standard Desc ription CPT-20637 First Vx - Ix admin via ID I M or jet injects without counseling by physician 09:15:14 CDT CPT-70996 Meningococcal B, recombinant vaccine 09:15:14 CDT CPT-76732 Addl Vx - Ix admin via ID IM or jet injects without counseling by physician 15:35:10 CDT CPT-05238 Meningococcal B, recombinant vaccine 15:35:10 CDT CPT-70389 First Vx - Ix admin via ID I M or jet injects without counseling by physician 15:35:10 CDT CPT-71943 Havrix Intramuscular Suspension 720 EL U /0.5ML 15:35:10 CDT CPT-31460 First Vx - Ix admin via ID I M or jet injects without counseling by physician 14:18:02 CDT CPT-84459 Gardasil 9 Intramuscular Suspension 1 4:18:02 CDT CPT-J3420 Vitamin B12 1000mcg (Cyanocobalamin) 16:30:23 CDT CPT-17926 Abx/Therapy Injection 16:30:23 CDT CPT-J3420 Vitamin B12 1000mcg (Cyanocobalamin) 16:09:42 CDT CPT-69819 Abx/Therapy Injection 16:09:42 CDT CPT-J3420 Vitamin B12 1000mcg (Cyanocobalamin) 15:22:47 CDT CPT-53524 Abx/Therapy Injection 15:22:47 CDT CPT-J3420 Vitamin B12 1000mcg (Cyanocobalamin) 17:00:35 CDT CPT-57900 Abx/Therapy Injection 17:00:35 CDT CPT-58239 First Vx - Ix admin via ID I M or jet injects without counseling by physician 16:04:17 SUPERVISOR [employer]IVITIES CPT-39240 Gardasil 9 Intramuscular Suspension 1 6:04:17 SUPER[employer]IVITIES CPT-55868 Venipuncture Draw Fee 09:40:26 CDT CPT-22541 [place] [facility] - LAB USE ONLY 09:40:26 CDT 11/30 CPT-33768 CBC with Diff - LAB USE ONLY 09:40:26 CDT 2 CPT-28889 Addl Vx - Ix admin via ID IM or jet injects without counseling by physician 09:40:21 CDT CPT-16564 Menactra Intramuscular Injectable 09:40:21 CDT CPT-65082 Addl Vx - Ix admin via ID IM or jet injects without counseling by physician 09:40:21 CDT CPT-56977 Gardasil 9 Intramuscular Suspension 0 9:40:21 CDT CPT-00223 First Vx - Ix admin via ID I M or jet injects without counseling by physician 09:40:21 CDT CPT-21231 Havrix Intramuscular Suspension 720 EL U /0.5ML 09:40:21 CDT CPT-J2930 Solu Medrol 125 mg (Methyl Prednisolone Sodium Succinate) 09:43:26 CDT CPT-46952 Abx/Therapy Injection 09:43:26 CDT CPT-J2930 Solu Medrol 125 mg (Methyl Prednisolone Sodium Succinate) 09:05:55 CDT CPT-36926 Abx/Therapy Injection 09:05:55 CDT CPT-89310 Venipuncture Draw Fee 14:01:33 CDT CPT-46666 EKG Trac and Interp 11:22:04 CDT CPT-42751 Venipuncture Draw Fee 10:53:35 CDT CPT-J2930 Solu Medrol 125 mg (Methyl Prednisolone Sodium Succinate) 09:29:26 CDT CPT-76570 Abx/Therapy Injection 09:29:26 CDT CPT-Cryo Cryotherapy 16:51:37 SUPERVISOR [employer]ENDING ACTIVITIES
--- OUTSIDE RECORDS SUMMARY | 2019-07-22 19:28 | XMS REPORT | Clinical Summary ---
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 Other atopic dermatitis and related conditions Contraceptive [...] samuel MD CERVICAL LYMPHADENOPATHY ICD-785.6 Inactive Adrián Varghsee MD CHEST DISCOMFORT ICD-786.59 Inactive Adrián leavitt [...] tab po qday for mood VILAZODONE HCL 17851502748 Active Adrián Varghese MD Active ESCITALOPRAM OXALATE 10 MG ORAL TABLET take 1 tab for mood 09/29 ESCITALOPRAM OXALATE 98700088570 No Longer Active Adrián Varghese MD Active BUSPIRONE HCL 7.5 MG ORAL TABLET PRN BUS PIRONE HCL 73229124282 No Longer Active Adrián Varghese MD Active PROZAC 20 MG ORAL CAPSULE PRN FLUOXETINE H CL 80493184794 No Longer Active Adrián Varghese MD Active SULFAMETHOXAZOLE-TRIMETHOPRIM 800-160 MG ORAL TABLET T QUINCY 1 TABLET BY MOUTH DAILY DIRECTED SULFAMETHOXAZOLE-TRIMETHOPRIM 88154450742 No Longer Active Madelin Hatch MD Active ABSORICA 20 MG ORAL CAPSULE 1 tablet daily ISOT RETINOIN 90595123534 Active Madelin Hatch MD Active ACZONE 5 % EXTERNAL GEL apply once daily to face 5 DAPSONE 76157863316 No Longer Active Madelin Hatch MD Active PROZAC 10 MG ORAL CAPSULE Take 1 tab daily for 1 week. Then increase to 20mg daily. FLUOXETINE HCL 08310607422 No Longer Active Yulissa Evans APRN Active CITALOPRAM HYDROBROMIDE 20 MG ORAL TABLET take 1 tab p o qday for depresion and anxiety. CITALOPRAM HYDROBROMIDE 76690329618 No L onger Active Shannan Evans APRN Active CYANOCOBALAMIN 1000 MCG/ML INJECTION SOLUTION 1 inject ion weekly for 1 month, than 1 a month for 2 months. recheck lab CYANOCO BALAMIN 72741315926 No Longer Active Shannan Evans APRN Active ULTRAM 50 MG ORAL TABLET 1 TAB PO Q 6 HRS PRN HEADACHE TRAMADOL HCL 49122965067 Active Adrián Varghese MD Active ULTRAM 50 MG ORAL TABLET take 1 tab po q 6 hrs prn headache pain TRAMADOL HCL 22140463507 No Longer Active Adrián Varghese MD Active CLINDAMYCIN PHOSPHATE 2 % VAGINAL CREAM apply cream to acne BID prn CLINDAMYCIN PHOSPHATE 26070983200 No Longer Active Adrián dyson MD Active MINOCYCLINE HCL 100 MG ORAL CAPSULE take one po BID 20 13/11/25 MINOCYCLINE HCL 93796867879 No Longer Active Adrián Varghese MD A ctive TRI-SPRINTEC 0.18/0.215/0.25 MG-35 MCG ORAL TABLET 1 po qd a s directed NORGESTIM-ETH ESTRAD TRIPHASIC 12844876411 Active Madelin Hatch MD Active ZITHROMAX 250 MG ORAL TABLET 2 po today, then 1 po q days 2-5 20 12/07/06 AZITHROMYCIN 25468736899 No Longer Active Adrián Varghese MD Active ZITHROMAX 250 MG ORAL TABLET 2 po today, then 1 po q days 2-5 20 11/06/16 AZITHROMYCIN 55407456228 No Longer Active Adrián Varghese MD Active PREDNISONE 20 MG ORAL TABLET 2 tabs daily for 3 days, 1 tab daily for 3 days, 1/2 tab daily for 2 days PREDNISONE 77802803501 No Longer Active Adrián Varghese MD Active ZANTAC 75 75 MG ORAL TABLET take 1 po BID RANIT IDINE HCL 47101956923 No Longer Active Uriel BOYD Active BENZACLIN 1-5 % EXTERNAL GEL apply to skin BID prn for acne 2012 CLINDAMYCIN PHOS-BENZOYL PEROX 67967156022 No Longer Active Uriel BOYD Active BENZACLIN 1-5 % EXTERNAL GEL apply to skin BID prn for acne 2012 BENZACLIN 1-5 % EXTERNAL GEL 295496 CLINDAMYCIN PHOS-BE NZOYL PEROX Inactive MINOCYCLINE HCL 100 MG ORAL CAPSULE take one po BID 13/11/25 MINOCYCLINE HCL 100 MG ORAL CAPSULE 167789 MINOCYCLINE HCL Inac tive CLINDAMYCIN PHOSPHATE 2 % VAGINAL CREAM apply cream to acne BID prn CLINDAMYCIN PHOSPHATE 2 % VAGINAL CREAM 246415 CLINDAMY ANGELIA PHOSPHATE Inactive ULTRAM 50 MG ORAL TABLET take 1 tab po q 6 hrs prn headache pain ULTRAM 50 MG ORAL TABLET 445904 TRAMADOL HCL Inactiv e CYANOCOBALAMIN 1000 MCG/ML INJECTION SOLUTION 1 inject ion weekly for 1 month, than 1 a month for 2 months. recheck lab CYANOCOBALAMIN 1000 MCG/ML INJECTION SOLUTION 179488 CYANOCOBALAMIN Inactive CITALOPRAM HYDROBROMIDE 20 MG ORAL TABLET take 1 tab p o qday for depresion and anxiety. CITALOPRAM HYDROBROMIDE 20 MG ORAL TABLET 621187 CITALOPRAM HYDROBROMIDE Inactive PROZAC 10 MG ORAL CAPSULE Take 1 tab daily for 1 week. Then increase to 20mg daily. PROZAC 10 MG ORAL CAPSULE 373126 FLUOXETINE HCL Inactive ACZONE 5 % EXTERNAL GEL apply once daily to face 07/22 ACZONE 5 % EXTERNAL GEL 378787 DAPSONE Inactive SULFAMETHOXAZOLE-TRIMETHOPRIM 800-160 MG ORAL TABLET T QUINCY 1 TABLET BY MOUTH DAILY DIRECTED SULFAMETHOXAZOLE-TRI METHOPRIM 800-160 MG ORAL TABLET 151522 SULFAMETHOXAZOLE-TRIMETHOPRIM Inactive PROZAC 20 MG ORAL CAPSULE PRN PROZAC 20 MG ORAL CAPSULE 730234 FLUOXETINE HCL Inactive BUSPIRONE HCL 7.5 MG ORAL TABLET PRN BUSPIRONE HCL 7.5 MG ORAL TABLET 157772 BUSPIRONE HCL Inactive ESCITALOPRAM OXALATE 10 MG ORAL TABLET take 1 tab for mood 09/29 ESCITALOPRAM OXALATE 10 MG ORAL TABLET 484876 ESCITALOP VINCE OXALATE Inactive ZANTAC 75 75 MG ORAL TABLET take 1 po BID ZANTAC 75 75 MG ORAL TABLET 021906 RANITIDINE HCL Inactive PREDNISONE 20 MG ORAL TABLET 2 tabs daily for 3 days, 1 tab daily for 3 days, 1/2 tab daily for 2 days PREDNISONE 20 MG ORAL T ABLET 751817 PREDNISONE Inactive ZITHROMAX 250 MG ORAL TABLET 2 po today, then 1 po q days 2-5 20 11/06/16 ZITHROMAX 250 MG ORAL TABLET 856794 AZITHROMYCIN [place] ctive ZITHROMAX 250 MG ORAL TABLET 2 po today, then 1 po q days 2-5 20 12/07/06 ZITHROMAX 250 MG ORAL TABLET 425580 AZITHROMYCIN [facility] ctive Advance Directives Directive Description Start Date [...] weight E&M 144 [lb_av] Weight Measure d Diagnostic Results Date Name Value Unit Range Description Lab Report: Chlamydia/GC APTIMA/64323 - Lab chlamydia DNA probe NOT DETECTED NOT DETECTED chlamydia DNA probe NOT DETECTED NOT DETECTED Lab Report: Chlamydia/GC APTIMA/72341 - Microbiology Neisseria gonorrhoeae DNA probe NOT DETECTED NO T DETECTED Neisseria gonorrhoeae DNA probe NOT DETECTED NO T DETECTED Lab Report: Comp. Metabolic Panel - Chem istry sodium, serum 141 mmol/L 744-014 9470/11/22 carbon dioxide, venous blood 25.2 mmol/L 21.0-32 [...] 5.0-8.5 Encounters Code Encounter Date Provider Facility [facility]-[id number] Vst-Est Level III 11:10:06 CDT Adrián Varghese MD [facility]-03246 Level 4 Est. Patient 09:07:11 CDT Adrián dyson MD [facility]-68426 Level 3 New Patient 12:59:59 CDT Madelin almodovar MD [facility]-07553 Level 3 Est. 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 Patient 11:10:55 CDT Shannan Are [facility]-58765 Level 4 Est. Patient 14:07:40 CDT Shannan Are [facility]-71136 Level 4 Est. Patient 13:54:09 CDT Adrián dyson MD [facility]-81030 Level 3 Est. Patient 09:22:14 CDT Adrián dyson MD [facility]65422 Level 3 Est. Patient 08:59:31 CDT Adrián dyson MD [facility]72130 Level 3 Est. Patient 11:58:31 CDT Adrián dyson MD [facility][note 3]-[id number] Level 3 Est. Patient 09:06:35 CDT Adrián dyson MD [facility][note 3]-[id number] Level 3 Est. Patient 09:18:45 CDT Adrián dyson MD [facility][note 3]-96921 Level 3 Est. Patient 09:13:22 CDT Adrián dyson MD [facility] CPT-64510 Level 3 Est. 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 Patient 14:00:53 CDT Uriel bhatia [facility] CPT-85767 Level 3 Est. Patient 20:00:09 CDT Terry jenkins DO [facility] CPT-57875 Level 3 Est. Patient 08:45:08 CDT Uriel bhatia [facility] CPT-83952 Level 3 Est. Patient 09:09:26 CDT Uriel clarissa [facility] CPT-51927 Level 3 Est. Patient 16:32:31 CDT Adrián dyson MD [facility] CPT-66823 Level 3 Est. 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 Ace Arriaza MD [facility] Procedures Code Procedure Name Date Entry Date Standard Desc ription CPT-29612 First Vx - Ix admin via ID I M or jet injects without counseling by physician 09:15:14 CDT CPT-23834 Meningococcal B, recombinant vaccine 09:15:14 CDT CPT-65278 Addl Vx - Ix admin via ID IM or jet injects without counseling by physician 15:35:10 CDT CPT-73443 Meningococcal B, recombinant vaccine 15:35:10 CDT CPT-86620 First Vx - Ix admin via ID I M or jet injects without counseling by physician 15:35:10 CDT CPT-27055 Havrix Intramuscular Suspension 720 EL U /0.5ML 15:35:10 CDT CPT-58128 First Vx - Ix admin via ID I M or jet injects without counseling by physician 14:18:02 CDT CPT-80951 Gardasil 9 Intramuscular Suspension 1 4:18:02 CDT CPT-J3420 Vitamin B12 1000mcg (Cyanocobalamin) 16:30:23 CDT CPT-29981 Abx/Therapy Injection 16:30:23 CDT CPT-J3420 Vitamin B12 1000mcg (Cyanocobalamin) 16:09:42 CDT CPT-80779 Abx/Therapy Injection 16:09:42 CDT CPT-J3420 Vitamin B12 1000mcg (Cyanocobalamin) 15:22:47 CDT CPT-35721 Abx/Therapy Injection 15:22:47 CDT CPT-J3420 Vitamin B12 1000mcg (Cyanocobalamin) 17:00:35 CDT CPT-09029 Abx/Therapy Injection 17:00:35 CDT CPT-20702 First Vx - Ix admin via ID I M or jet injects without counseling by physician 16:04:17 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 CPT-06240 Gardasil 9 Intramuscular Suspension 1 6:04:17 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 CPT-13036 Venipuncture Draw Fee 09:40:26 CDT CPT-16339 [place] - LAB USE ONLY 09:40:26 CDT 11/30 CPT-73630 CBC with Diff - LAB USE ONLY 09:40:26 CDT 2 016/10/03 CPT-81585 Addl Vx - Ix admin via ID IM or jet injects without counseling by physician 09:40:21 CDT CPT-02110 Menactra Intramuscular Injectable 09:40:21 CDT CPT-03965 Addl Vx - Ix admin via ID IM or jet injects without counseling by physician 09:40:21 CDT CPT-27533 Gardasil 9 Intramuscular Suspension 0 9:40:21 CDT CPT-71353 First Vx - Ix admin via ID I M or jet injects without counseling by physician 09:40:21 CDT CPT-30245 Havrix Intramuscular Suspension 720 EL U /0.5ML 09:40:21 CDT CPT-J2930 Solu Medrol 125 mg (Methyl Prednisolone Sodium Succinate) 09:43:26 CDT CPT-43829 Abx/Therapy Injection 09:43:26 CDT CPT-J2930 Solu Medrol 125 mg (Methyl Prednisolone Sodium Succinate) 09:05:55 CDT CPT-38433 Abx/Therapy Injection 09:05:55 CDT CPT-34462 Venipuncture Draw Fee 14:01:33 CDT CPT-24291 EKG Trac and Interp 11:22:04 CDT CPT-91291 Venipuncture Draw Fee 10:53:35 CDT CPT-J2930 Solu Medrol 125 mg (Methyl Prednisolone Sodium Succinate) 09:29:26 CDT CPT-53255 Abx/Therapy Injection 09:29:26 CDT CPT-Cryo Cryotherapy 16:51:37 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
--- OUTSIDE RECORDS SUMMARY | 2019-07-22 19:28 | XMS REPORT | Clinical Summary ---
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 Other atopic dermatitis and related conditions [...] tab po qday for mood VILAZODONE HCL 56904737847 Active Adrián Varghese MD Active ESCITALOPRAM OXALATE 10 MG ORAL TABLET take 1 tab for mood 09/29 ESCITALOPRAM OXALATE 27716640307 No Longer Active Adrián Varghese MD Active BUSPIRONE HCL 7.5 MG ORAL TABLET PRN BUS PIRONE HCL 97447163610 No Longer Active Adrián Varghese MD Active PROZAC 20 MG ORAL CAPSULE PRN FLUOXETINE H CL 38364657342 No Longer Active Adrián Varghese MD Active SULFAMETHOXAZOLE-TRIMETHOPRIM 800-160 MG ORAL TABLET T QUINCY 1 TABLET BY MOUTH DAILY DIRECTED SULFAMETHOXAZOLE-TRIMETHOPRIM 08130794718 No Longer Active Madelin Hatch MD Active ABSORICA 20 MG ORAL CAPSULE 1 tablet daily ISOT RETINOIN 08726592416 Active Madelin Hatch MD Active ACZONE 5 % EXTERNAL GEL apply once daily to face 5 DAPSONE 30595541608 No Longer Active Madelin Hatch MD Active PROZAC 10 MG ORAL CAPSULE Take 1 tab daily for 1 week. Then increase to 20mg daily. FLUOXETINE HCL 86811175317 No Longer Active Yulissa Evans APRN Active CITALOPRAM HYDROBROMIDE 20 MG ORAL TABLET take 1 tab p o qday for depresion and anxiety. CITALOPRAM HYDROBROMIDE 32922410687 No L onger Active Shannan Evans APRN Active CYANOCOBALAMIN 1000 MCG/ML INJECTION SOLUTION 1 inject ion weekly for 1 month, than 1 a month for 2 months. recheck lab CYANOCO BALAMIN 29400636635 No Longer Active Shannan Evans APRN Active ULTRAM 50 MG ORAL TABLET 1 TAB PO Q 6 HRS PRN HEADACHE TRAMADOL HCL 15834265757 Active Adrián Varghese MD Active ULTRAM 50 MG ORAL TABLET take 1 tab po q 6 hrs prn headache pain TRAMADOL HCL 24266904443 No Longer Active Adrián Varghese MD Active CLINDAMYCIN PHOSPHATE 2 % VAGINAL CREAM apply cream to acne BID prn CLINDAMYCIN PHOSPHATE 79253264845 No Longer Active Adrián dyson MD Active MINOCYCLINE HCL 100 MG ORAL CAPSULE take one po BID 20 13/11/25 MINOCYCLINE HCL 92476094998 No Longer Active Adrián Varghese MD A ctive TRI-SPRINTEC 0.18/0.215/0.25 MG-35 MCG ORAL TABLET 1 po qd a s directed NORGESTIM-ETH ESTRAD TRIPHASIC 42839626923 Active Madelin Hatch MD Active ZITHROMAX 250 MG ORAL TABLET 2 po today, then 1 po q days 2-5 20 12/07/06 AZITHROMYCIN 27238780125 No Longer Active Adrián Varghese MD Active ZITHROMAX 250 MG ORAL TABLET 2 po today, then 1 po q days 2-5 20 11/06/16 AZITHROMYCIN 59857502344 No Longer Active Adrián Varghese MD Active PREDNISONE 20 MG ORAL TABLET 2 tabs daily for 3 days, 1 tab daily for 3 days, 1/2 tab daily for 2 days PREDNISONE 88056277788 No Longer Active Adrián Varghese MD Active ZANTAC 75 75 MG ORAL TABLET take 1 po BID RANIT IDINE HCL 39505528984 No Longer Active Uriel BOYD Active BENZACLIN 1-5 % EXTERNAL GEL apply to skin BID prn for acne 2012 CLINDAMYCIN PHOS-BENZOYL PEROX 63992741196 No Longer Active Uriel BOYD Active BENZACLIN 1-5 % EXTERNAL GEL apply to skin BID prn for acne 2012 BENZACLIN 1-5 % EXTERNAL GEL 260674 CLINDAMYCIN PHOS-BE NZOYL PEROX Inactive MINOCYCLINE HCL 100 MG ORAL CAPSULE take one po BID 13/11/25 MINOCYCLINE HCL 100 MG ORAL CAPSULE 262826 MINOCYCLINE HCL Inac tive CLINDAMYCIN PHOSPHATE 2 % VAGINAL CREAM apply cream to acne BID prn CLINDAMYCIN PHOSPHATE 2 % VAGINAL CREAM 173910 CLINDAMY ANGELIA PHOSPHATE Inactive ULTRAM 50 MG ORAL TABLET take 1 tab po q 6 hrs prn headache pain ULTRAM 50 MG ORAL TABLET 212806 TRAMADOL HCL Inactiv e CYANOCOBALAMIN 1000 MCG/ML INJECTION SOLUTION 1 inject ion weekly for 1 month, than 1 a month for 2 months. recheck lab CYANOCOBALAMIN 1000 MCG/ML INJECTION SOLUTION 036819 CYANOCOBALAMIN Inactive CITALOPRAM HYDROBROMIDE 20 MG ORAL TABLET take 1 tab p o qday for depresion and anxiety. CITALOPRAM HYDROBROMIDE 20 MG ORAL TABLET 555960 CITALOPRAM HYDROBROMIDE Inactive PROZAC 10 MG ORAL CAPSULE Take 1 tab daily for 1 week. Then increase to 20mg daily. PROZAC 10 MG ORAL CAPSULE 656740 FLUOXETINE HCL Inactive ACZONE 5 % EXTERNAL GEL apply once daily to face 07/22 ACZONE 5 % EXTERNAL GEL 875918 DAPSONE Inactive SULFAMETHOXAZOLE-TRIMETHOPRIM 800-160 MG ORAL TABLET T QUINCY 1 TABLET BY MOUTH DAILY DIRECTED SULFAMETHOXAZOLE-TRI METHOPRIM 800-160 MG ORAL TABLET 766769 SULFAMETHOXAZOLE-TRIMETHOPRIM Inactive PROZAC 20 MG ORAL CAPSULE PRN PROZAC 20 MG ORAL CAPSULE 398305 FLUOXETINE HCL Inactive BUSPIRONE HCL 7.5 MG ORAL TABLET PRN BUSPIRONE HCL 7.5 MG ORAL TABLET 976890 BUSPIRONE HCL Inactive ESCITALOPRAM OXALATE 10 MG ORAL TABLET take 1 tab for mood 09/29 ESCITALOPRAM OXALATE 10 MG ORAL TABLET 569756 ESCITALOP VINCE OXALATE Inactive ZANTAC 75 75 MG ORAL TABLET take 1 po BID ZANTAC 75 75 MG ORAL TABLET 905061 RANITIDINE HCL Inactive PREDNISONE 20 MG ORAL TABLET 2 tabs daily for 3 days, 1 tab daily for 3 days, 1/2 tab daily for 2 days PREDNISONE 20 MG ORAL T ABLET 036588 PREDNISONE Inactive ZITHROMAX 250 MG ORAL TABLET 2 po today, then 1 po q days 2-5 20 11/06/16 ZITHROMAX 250 MG ORAL TABLET 330499 AZITHROMYCIN [place] [facility] ZITHROMAX 250 MG ORAL TABLET 2 po today, then 1 po q days 2-5 20 12/07/06 ZITHROMAX 250 MG ORAL TABLET 523878 AZITHROMYCIN [place] [facility] Advance Directives Directive Description Start Date [...] Value Unit Range Description Lab Report: Chlamydia/GC APTIMA/65474 - Lab chlamydia DNA probe NOT DETECTED NOT DETECTED chlamydia DNA probe NOT DETECTED NOT DETECTED Lab Report: Chlamydia/GC APTIMA/12457 - Microbiology Neisseria gonorrhoeae DNA probe NOT DETECTED NO T DETECTED Neisseria gonorrhoeae DNA probe NOT DETECTED NO T DETECTED Lab Report: Comp. Metabolic Panel - Chem istry sodium, serum 141 mmol/L 566-043 8625/11/22 carbon dioxide, venous blood 25.2 mmol/L 21.0-32 [...] 5.0-8.5 Encounters Code Encounter Date Provider Facility [facility]-[id number] Vst-Est Level III 11:10:06 CDT Adrián Varghese MD [facility]-87300 Level 4 Est. Patient 09:07:11 CDT Adrián dyson MD [facility]-63038 Level 3 New Patient 12:59:59 CDT Madelin almodovar MD [facility]-57356 Level 3 Est. 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 Patient 11:10:55 CDT Shannan Are [facility]-87651 Level 4 Est. Patient 14:07:40 CDT Shannan Are [facility]-68515 Level 4 Est. Patient 13:54:09 CDT Adrián dyson MD [facility]-15726 Level 3 Est. Patient 09:22:14 CDT Adrián dyson MD [facility]16575 Level 3 Est. Patient 08:59:31 CDT Adrián dyson MD [facility]684[facility] Level 3 Est. Patient 11:58:31 CDT Adrián dyson MD [facility]-73592 Level 3 Est. Patient 09:06:35 CDT Adrián dyson MD [facility]-81400 Level 3 Est. Patient 09:18:45 CDT Adrián dyson MD [facility]-75119 Level 3 Est. Patient 09:13:22 CDT Adrián dyson MD [facility] CPT-85792 Level 3 Est. 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 Patient 14:00:53 CDT Uriel bhatia [facility] CPT-68665 Level 3 Est. Patient 20:00:09 CDT Terry jenkins DO [facility] CPT-17198 Level 3 Est. Patient 08:45:08 CDT Uriel bhatia [facility] CPT-14430 Level 3 Est. Patient 09:09:26 CDT Uriel clarissa [facility] CPT-30077 Level 3 Est. Patient 16:32:31 CDT Adrián dyson MD [facility] CPT-82925 Level 3 Est. Patient 09:35:27 MANAGER DENTAL Norman fuentes [facility] CPT-72793 Level 2 Est. Patient 16:51:37 MANAGER DENTAL Adrián dyson MD [facility] CPT-23769 Level 3 Est. Patient 10:00:11 MANAGER DENTAL Ace Arriaza MD [facility] Procedures Code Procedure Name Date Entry Date Standard Desc ription CPT-50780 First Vx - Ix admin via ID I M or jet injects without counseling by physician 09:15:14 CDT CPT-93836 Meningococcal B, recombinant vaccine 09:15:14 CDT CPT-01379 Addl Vx - Ix admin via ID IM or jet injects without counseling by physician 15:35:10 CDT CPT-63870 Meningococcal B, recombinant vaccine 15:35:10 CDT CPT-58423 First Vx - Ix admin via ID I M or jet injects without counseling by physician 15:35:10 CDT CPT-91799 Havrix Intramuscular Suspension 720 EL U /0.5ML 15:35:10 CDT CPT-15000 First Vx - Ix admin via ID I M or jet injects without counseling by physician 14:18:02 CDT CPT-46661 Gardasil 9 Intramuscular Suspension 1 4:18:02 CDT CPT-J3420 Vitamin B12 1000mcg (Cyanocobalamin) 16:30:23 CDT CPT-90888 Abx/Therapy Injection 16:30:23 CDT CPT-J3420 Vitamin B12 1000mcg (Cyanocobalamin) 16:09:42 CDT CPT-66282 Abx/Therapy Injection 16:09:42 CDT CPT-J3420 Vitamin B12 1000mcg (Cyanocobalamin) 15:22:47 CDT CPT-22280 Abx/Therapy Injection 15:22:47 CDT CPT-J3420 Vitamin B12 1000mcg (Cyanocobalamin) 17:00:35 CDT CPT-90173 Abx/Therapy Injection 17:00:35 CDT CPT-40308 First Vx - Ix admin via ID I M or jet injects without counseling by physician 16:04:17 MANAGER DENTAL CPT-52155 Gardasil 9 Intramuscular Suspension 1 6:04:17 MANAGER DENTAL CPT-73002 Venipuncture Draw Fee 09:40:26 CDT CPT-54863 [place] [facility] - LAB USE ONLY 09:40:26 CDT 11/30 CPT-26501 CBC with Diff - LAB USE ONLY 09:40:26 CDT 2 CPT-12972 Addl Vx - Ix admin via ID IM or jet injects without counseling by physician 09:40:21 CDT CPT-09054 Menactra Intramuscular Injectable 09:40:21 CDT CPT-44743 Addl Vx - Ix admin via ID IM or jet injects without counseling by physician 09:40:21 CDT CPT-96334 Gardasil 9 Intramuscular Suspension 0 9:40:21 CDT CPT-55564 First Vx - Ix admin via ID I M or jet injects without counseling by physician 09:40:21 CDT CPT-53783 Havrix Intramuscular Suspension 720 EL U /0.5ML 09:40:21 CDT CPT-J2930 Solu Medrol 125 mg (Methyl Prednisolone Sodium Succinate) 09:43:26 CDT CPT-90633 Abx/Therapy Injection 09:43:26 CDT CPT-J2930 Solu Medrol 125 mg (Methyl Prednisolone Sodium Succinate) 09:05:55 CDT CPT-22124 Abx/Therapy Injection 09:05:55 CDT CPT-77769 Venipuncture Draw Fee 14:01:33 CDT CPT-43132 EKG Trac and Interp 11:22:04 CDT CPT-41089 Venipuncture Draw Fee 10:53:35 CDT CPT-J2930 Solu Medrol 125 mg (Methyl Prednisolone Sodium Succinate) 09:29:26 CDT CPT-11680 Abx/Therapy Injection 09:29:26 CDT CPT-Cryo Cryotherapy 16:51:37 MANAGER DENTAL
--- OUTSIDE RECORDS SUMMARY | 2019-07-22 19:28 | XMS REPORT | Clinical Summary ---
Author Author Yovanny, Clarisa Christopher Organization [facility] Address Unknown Phone Unavailable Allergies, [...] vagina Dermatitis, atopic 691.8 Active Cale Lopez [employer] Other atopic dermatitis and related conditions Contraceptive [...] take 1 tab for mood ESCITALOPRAM OXALATE 78957818918 Active Adrián Varghese MD Active SULFAMETHOXAZOLE-TRIMETHOPRIM 800-160 MG ORAL TABLET T QUINCY 1 TABLET BY MOUTH DAILY DIRECTED SULFAMETHOXAZOLE-TRIMETHOPRIM 94130901980 No Longer Active Madelin Hatch MD Active BUSPIRONE HCL 7.5 MG ORAL TABLET PRN BUSPIR ONE HCL 45152862423 Active Madelin Hatch MD Active PROZAC 20 MG ORAL CAPSULE PRN FLUOXETINE HCL 0077 5546642 Active Madelin Hatch MD Active ABSORICA 20 MG ORAL CAPSULE 1 tablet daily ISOT RETINOIN 24286068939 Active Madelin Hatch MD Active ACZONE 5 % EXTERNAL GEL apply once daily to face 5 DAPSONE 21837857501 No Longer Active Madelin Hatch MD Active PROZAC 10 MG ORAL CAPSULE Take 1 tab daily for 1 week. Then increase to 20mg daily. FLUOXETINE HCL 95670013194 No Longer Active Yulissa Evans APRN Active CITALOPRAM HYDROBROMIDE 20 MG ORAL TABLET take 1 tab p o qday for depresion and anxiety. CITALOPRAM HYDROBROMIDE 82479796578 No L onger Active Shannan Evans APRN Active CYANOCOBALAMIN 1000 MCG/ML INJECTION SOLUTION 1 inject ion weekly for 1 month, than 1 a month for 2 months. recheck lab CYANOCO BALAMIN 39981994827 No Longer Active Shannan Evans APRN Active ULTRAM 50 MG ORAL TABLET 1 TAB PO Q 6 HRS PRN HEADACHE TRAMADOL HCL 35027926405 Active Adrián Varghese MD Active ULTRAM 50 MG ORAL TABLET take 1 tab po q 6 hrs prn headache pain TRAMADOL HCL 96332781752 No Longer Active Adrián Varghese MD Active CLINDAMYCIN PHOSPHATE 2 % VAGINAL CREAM apply cream to acne BID prn CLINDAMYCIN PHOSPHATE 80303848298 No Longer Active Adrián dyson MD Active MINOCYCLINE HCL 100 MG ORAL CAPSULE take one po BID 13/11/25 MINOCYCLINE HCL 45834251195 No Longer Active Adrián Varghese MD A ctive TRI-SPRINTEC 0.18/0.215/0.25 MG-35 MCG ORAL TABLET 1 po qd a s directed NORGESTIM-ETH ESTRAD TRIPHASIC 14658375517 Active Madelin Hatch MD Active ZITHROMAX 250 MG ORAL TABLET 2 po today, then 1 po q days 2-5 20 12/07/06 AZITHROMYCIN 68910418916 No Longer Active Adrián Varghese MD Active ZITHROMAX 250 MG ORAL TABLET 2 po today, then 1 po q days 2-5 20 11/06/16 AZITHROMYCIN 38380769452 No Longer Active Adrián Varghese MD Active PREDNISONE 20 MG ORAL TABLET 2 tabs daily for 3 days, 1 tab daily for 3 days, 1/2 tab daily for 2 days PREDNISONE 56864557071 No Longer Active Adrián Varghese MD Active ZANTAC 75 75 MG ORAL TABLET take 1 po BID RANIT IDINE HCL 46578884359 No Longer Active Uriel BOYD Active BENZACLIN 1-5 % EXTERNAL GEL apply to skin BID prn for acne 2012 CLINDAMYCIN PHOS-BENZOYL PEROX 31528584891 No Longer Active Uriel BOYD Active CYANOCOBALAMIN 1000 MCG/ML INJECTION SOLUTION 1 inject ion weekly for 1 month, than 1 a month for 2 months. recheck lab CYANOCOBALAMIN 1000 MCG/ML INJECTION SOLUTION 974999 CYANOCOBALAMIN Inactive MINOCYCLINE HCL 100 MG ORAL CAPSULE take one po BID 13/11/25 MINOCYCLINE HCL 100 MG ORAL CAPSULE 485283 MINOCYCLINE HCL Inac tive PREDNISONE 20 MG ORAL TABLET 2 tabs daily for 3 days, 1 tab daily for 3 days, 1/2 tab daily for 2 days PREDNISONE 20 MG ORAL T ABLET 553922 PREDNISONE Inactive PROZAC 10 MG ORAL CAPSULE Take 1 tab daily for 1 week. Then increase to 20mg daily. PROZAC 10 MG ORAL CAPSULE 740648 FLUOXETINE HCL Inactive CLINDAMYCIN PHOSPHATE 2 % VAGINAL CREAM apply cream to acne BID prn CLINDAMYCIN PHOSPHATE 2 % VAGINAL CREAM 477993 CLINDAMY ANGELIA PHOSPHATE Inactive SULFAMETHOXAZOLE-TRIMETHOPRIM 800-160 MG ORAL TABLET T QUINCY 1 TABLET BY MOUTH DAILY DIRECTED SULFAMETHOXAZOLE-TRI METHOPRIM 800-160 MG ORAL TABLET 092307 SULFAMETHOXAZOLE-TRIMETHOPRIM Inactive ULTRAM 50 MG ORAL TABLET take 1 tab po q 6 hrs prn headache pain ULTRAM 50 MG ORAL TABLET 988118 TRAMADOL HCL Inactiv e ZANTAC 75 75 MG ORAL TABLET take 1 po BID ZANTAC 75 75 MG ORAL TABLET 330038 RANITIDINE HCL Inactive ZITHROMAX 250 MG ORAL TABLET 2 po today, then 1 po q days 2-5 20 11/06/16 ZITHROMAX 250 MG ORAL TABLET 554810 AZITHROMYCIN [place] ctive ZITHROMAX 250 MG ORAL TABLET 2 po today, then 1 po q days 2-5 20 12/07/06 ZITHROMAX 250 MG ORAL TABLET 797636 AZITHROMYCIN [place] ctive CITALOPRAM HYDROBROMIDE 20 MG ORAL TABLET take 1 tab p o qday for depresion and anxiety. CITALOPRAM HYDROBROMIDE 20 MG ORAL TABLET 155234 CITALOPRAM HYDROBROMIDE Inactive BENZACLIN 1-5 % EXTERNAL GEL apply to skin BID prn for acne 2012 BENZACLIN 1-5 % EXTERNAL GEL 761090 CLINDAMYCIN PHOS-BE NZOYL PEROX Inactive ACZONE 5 % EXTERNAL GEL apply once daily to face 07/22 ACZONE 5 % EXTERNAL GEL 028675 DAPSONE Inactive Advance Directives Directive Description Start [...] Value Unit Range Description Lab Report: Chlamydia/GC APTIMA/85451 - Lab chlamydia DNA probe NOT DETECTED NOT DETECTED chlamydia DNA probe NOT DETECTED NOT DETECTED Lab Report: Chlamydia/GC APTIMA/62756 - Microbiology Neisseria gonorrhoeae DNA probe NOT DETECTED NO T DETECTED Neisseria gonorrhoeae DNA probe NOT DETECTED NO T DETECTED Lab Report: Comp. Metabolic Panel - Chem istry sodium, serum 141 mmol/L 355-136 0837/11/22 carbon dioxide, venous blood 25.2 mmol/L 21.0-32 .0 potassium, serum 3.8 mmol/L 3.5-5.2 chloride, serum 104 mmol/L 98-107 blood glucose 95 mg/dL 65-110 urea nitrogen, blood 15 mg/dL 7-18 creatinine, serum 0.79 mg/dL 0.60-1.30 alanine aminotransferase (SGPT), serum 28 U/L 10-55 aspartate aminotransferase (SGOT), serum 17 U/L 15-45 calcium, serum 8.9 mg/dL 8.5-10.1 bilirubin, serum, total 0.30 mg/dL 0.20-1.00 sodium, serum 139 mmol/L 982-457 7804/09/06 carbon dioxide, venous blood 25.3 mmol/L 21.0-32 .0 potassium, serum 3.8 mmol/L 3.5-5.2 chloride, serum 102 mmol/L 98-107 blood glucose 85 mg/dL 65-110 urea nitrogen, blood 14 mg/dL 7-18 creatinine, serum 1.16 mg/dL 0.60-1.30 alanine aminotransferase (SGPT), serum 21 U/L 10-55 aspartate aminotransferase (SGOT), serum 14 U/L 15-45 calcium, serum 8.7 mg/dL 8.5-10.1 bilirubin, serum, total 0.20 mg/dL 0.20-1.00 Lab Report: UADIP W/MICRO, AUTO [...] 5.0-8.5 Encounters Code Encounter Date Provider Facility CPT-46443 Level 4 Est. Patient 09:07:11 CDT Adrián dyson MD [facility] CPT-13305 Level 3 New Patient 12:59:59 CDT Madelin almodovar MD [facility]-25094 Level 3 Est. Patient 10:07:39 MEDICAL CHIEF TECHNICIAN Cale morris [facility]-40297 Level 3 Est. Patient 11:35:37 MEDICAL CHIEF TECHNICIAN Cale morris [facility]-45395 Level 4 Est. Patient 11:10:55 CDT Shannan Are [facility]-35630 Level 4 Est. Patient 14:07:40 CDT Shannan [facility]-79645 Level 4 Est. Patient 13:54:09 CDT Adrián dyson MD [facility]-31762 Level 3 Est. Patient 09:22:14 CDT Adrián dyson MD [facility]-24272 Level 3 Est. Patient 08:59:31 CDT Adrián dyson MD [facility]-43731 Level 3 Est. Patient 11:58:31 CDT Adrián dyson MD [facility] CPT-47854 Level 3 Est. Patient 09:06:35 CDT Adrián dyson MD [facility] CPT-54096 Level 3 Est. Patient 09:18:45 CDT Adrián dyson MD [facility] CPT-17883 Level 3 Est. Patient 09:13:22 CDT Adrián dyson MD [facility] CPT-62769 Level 3 Est. Patient 18:04:31 MEDICAL CHIEF TECHNICIAN Adrián dyson MD [facility] CPT-13637 Level 4 Est. Patient 14:00:53 CDT Uriel Ashleyclarissa hintonsriram [facility] CPT-47741 Level 3 Est. Patient 20:00:09 CDT Terry jenkins DO [facility] CPT-11192 Level 3 Est. Patient 08:45:08 CDT Richcristian bhatia [facility] CPT-08266 Level 3 Est. Patient 09:09:26 CDT Richcristian clarissa sriram [facility] CPT-12140 Level 3 Est. Patient 16:32:31 CDT Adrián dyson MD [facility] CPT-82429 Level 3 Est. Patient 09:35:27 MEDICAL CHIEF TECHNICIAN Norman fuentes [facility] CPT-67287 Level 2 Est. Patient 16:51:37 MEDICAL CHIEF TECHNICIAN Adrián dyson MD [facility] CPT-92490 Level 3 Est. Patient 10:00:11 MEDICAL CHIEF TECHNICIAN Ace Arriaza MD [facility] Procedures Code Procedure Name Date Entry Date Standard Desc ription CPT-27712 First Vx - Ix admin via ID I M or jet injects without counseling by physician 09:15:14 CDT CPT-24914 Meningococcal B, recombinant vaccine 09:15:14 CDT CPT-29925 Addl Vx - Ix admin via ID IM or jet injects without counseling by physician 15:35:10 CDT CPT-81205 Meningococcal B, recombinant vaccine 15:35:10 CDT CPT-55085 First Vx - Ix admin via ID I M or jet injects without counseling by physician 15:35:10 CDT CPT-30963 Havrix Intramuscular Suspension 720 EL U /0.5ML 15:35:10 CDT CPT-07572 First Vx - Ix admin via ID I M or jet injects without counseling by physician 14:18:02 CDT CPT-65668 Gardasil 9 Intramuscular Suspension 1 4:18:02 CDT CPT-J3420 Vitamin B12 1000mcg (Cyanocobalamin) 16:30:23 CDT CPT-16984 Abx/Therapy Injection 16:30:23 CDT CPT-J3420 Vitamin B12 1000mcg (Cyanocobalamin) 16:09:42 CDT CPT-23073 Abx/Therapy Injection 16:09:42 CDT CPT-J3420 Vitamin B12 1000mcg (Cyanocobalamin) 15:22:47 CDT CPT-46697 Abx/Therapy Injection 15:22:47 CDT CPT-J3420 Vitamin B12 1000mcg (Cyanocobalamin) 17:00:35 CDT CPT-04122 Abx/Therapy Injection 17:00:35 CDT CPT-94219 First Vx - Ix admin via ID I M or jet injects without counseling by physician 16:04:17 MEDICAL CHIEF TECHNICIAN CPT-21128 Gardasil 9 Intramuscular Suspension 1 6:04:17 MEDICAL CHIEF TECHNICIAN CPT-15370 Venipuncture Draw Fee 09:40:26 CDT CPT-54326 [place] - LAB USE ONLY 09:40:26 CDT 11/30 CPT-54696 CBC with Diff - LAB USE ONLY 09:40:26 CDT 2 CPT-77707 Addl Vx - Ix admin via ID IM or jet injects without counseling by physician 09:40:21 CDT CPT-39936 Menactra Intramuscular Injectable 09:40:21 CDT CPT-56752 Addl Vx - Ix admin via ID IM or jet injects without counseling by physician 09:40:21 CDT CPT-35777 Gardasil 9 Intramuscular Suspension 0 9:40:21 CDT CPT-40319 First Vx - Ix admin via ID I M or jet injects without counseling by physician 09:40:21 CDT CPT-79305 Havrix Intramuscular Suspension 720 EL U /0.5ML 09:40:21 CDT CPT-J2930 Solu Medrol 125 mg (Methyl Prednisolone Sodium Succinate) 09:43:26 CDT CPT-24843 Abx/Therapy Injection 09:43:26 CDT CPT-J2930 Solu Medrol 125 mg (Methyl Prednisolone Sodium Succinate) 09:05:55 CDT CPT-45365 Abx/Therapy Injection 09:05:55 CDT CPT-14508 Venipuncture Draw Fee 14:01:33 CDT CPT-10168 EKG Trac and Interp 11:22:04 CDT CPT-25542 Venipuncture Draw Fee 10:53:35 CDT CPT-J2930 Solu Medrol 125 mg (Methyl Prednisolone Sodium Succinate) 09:29:26 CDT CPT-06215 Abx/Therapy Injection 09:29:26 CDT CPT-Cryo Cryotherapy 16:51:37 MEDICAL CHIEF TECHNICIAN
--- OUTSIDE RECORDS SUMMARY | 2019-07-22 19:29 | XMS REPORT | Clinical Summary ---
Author Author Yovanny, Clarisa Christopher Organization [facility] [employer] Address Unknown Phone Unavailable Allergies, Adverse Reactions, Alerts Allergy Name Reaction Description Start Date Severity Status Pr ovider BENZACLIN Critical Active Uriel BOYD Conditions or Problems Problem Name Problem Code Onset Date Status Entry Date Provider Comment Standard Description Annotate ACUTE BRONCHITIS 466.0 Resolved Adrián Varghese MD Acute bronchitis FAMILY HISTORY OF HYPERTENSION V17.4 Resolved 2 Ardián Varghese MD Family history of other cardiovascular [...] vagina Dermatitis, atopic 691.8 Active Cale Lopez [employer] Other atopic dermatitis and related conditions Contraceptive [...] take 1 tab for mood ESCITALOPRAM OXALATE 87748839044 Active Adrián Varghese MD Active SULFAMETHOXAZOLE-TRIMETHOPRIM 800-160 MG ORAL TABLET T QUINCY 1 TABLET BY MOUTH DAILY DIRECTED SULFAMETHOXAZOLE-TRIMETHOPRIM 09585528022 No Longer Active Madelin Hatch MD Active BUSPIRONE HCL 7.5 MG ORAL TABLET PRN BUSPIR ONE HCL 35698747696 Active Madelin Hatch MD Active PROZAC 20 MG ORAL CAPSULE PRN FLUOXETINE HCL 0077 5874624 Active Madelin Hatch MD Active ABSORICA 20 MG ORAL CAPSULE 1 tablet daily ISOT RETINOIN 83514841236 Active Madelin Hatch MD Active ACZONE 5 % EXTERNAL GEL apply once daily to face 5 DAPSONE 98546479655 No Longer Active Madelin Hatch MD Active PROZAC 10 MG ORAL CAPSULE Take 1 tab daily for 1 week. Then increase to 20mg daily. FLUOXETINE HCL 19412223805 No Longer Active Yulissa Evans APRN Active CITALOPRAM HYDROBROMIDE 20 MG ORAL TABLET take 1 tab p o qday for depresion and anxiety. CITALOPRAM HYDROBROMIDE 87723210839 No L onger Active Shannan Evans APRN Active CYANOCOBALAMIN 1000 MCG/ML INJECTION SOLUTION 1 inject ion weekly for 1 month, than 1 a month for 2 months. recheck lab CYANOCO BALAMIN 00102652249 No Longer Active Shannan Evans APRN Active ULTRAM 50 MG ORAL TABLET 1 TAB PO Q 6 HRS PRN HEADACHE TRAMADOL HCL 72023173241 Active Adrián Varghese MD Active ULTRAM 50 MG ORAL TABLET take 1 tab po q 6 hrs prn headache pain TRAMADOL HCL 52471093591 No Longer Active Adrián Varghese MD Active CLINDAMYCIN PHOSPHATE 2 % VAGINAL CREAM apply cream to acne BID prn CLINDAMYCIN PHOSPHATE 81296220320 No Longer Active Adrián dyson MD Active MINOCYCLINE HCL 100 MG ORAL CAPSULE take one po BID 20 13/11/25 MINOCYCLINE HCL 85549777632 No Longer Active Adrián Varghese MD A ctive TRI-SPRINTEC 0.18/0.215/0.25 MG-35 MCG ORAL TABLET 1 po qd a s directed NORGESTIM-ETH ESTRAD TRIPHASIC 28644014289 Active Madelin Hatch MD Active ZITHROMAX 250 MG ORAL TABLET 2 po today, then 1 po q days 2-5 20 12/07/06 AZITHROMYCIN 75737144495 No Longer Active Adrián Varghese MD Active ZITHROMAX 250 MG ORAL TABLET 2 po today, then 1 po q days 2-5 20 11/06/16 AZITHROMYCIN 71906148924 No Longer Active Adrián Varghese MD Active PREDNISONE 20 MG ORAL TABLET 2 tabs daily for 3 days, 1 tab daily for 3 days, 1/2 tab daily for 2 days PREDNISONE 26862357937 No Longer Active Adrián Varghese MD Active ZANTAC 75 75 MG ORAL TABLET take 1 po BID RANIT IDINE HCL 84999852820 No Longer Active Uriel BOYD Active BENZACLIN 1-5 % EXTERNAL GEL apply to skin BID prn for acne 2012 CLINDAMYCIN PHOS-BENZOYL PEROX 35542939407 No Longer Active Uriel BOYD Active BENZACLIN 1-5 % EXTERNAL GEL apply to skin BID prn for acne 2012 BENZACLIN 1-5 % EXTERNAL GEL 333154 CLINDAMYCIN PHOS-BE NZOYL PEROX Inactive MINOCYCLINE HCL 100 MG ORAL CAPSULE take one po BID 13/11/25 MINOCYCLINE HCL 100 MG ORAL CAPSULE 961985 MINOCYCLINE HCL Inac tive CLINDAMYCIN PHOSPHATE 2 % VAGINAL CREAM apply cream to acne BID prn CLINDAMYCIN PHOSPHATE 2 % VAGINAL CREAM 789264 CLINDAMY ANGELIA PHOSPHATE Inactive ULTRAM 50 MG ORAL TABLET take 1 tab po q 6 hrs prn headache pain ULTRAM 50 MG ORAL TABLET 312859 TRAMADOL HCL Inactiv e CYANOCOBALAMIN 1000 MCG/ML INJECTION SOLUTION 1 inject ion weekly for 1 month, than 1 a month for 2 months. recheck lab CYANOCOBALAMIN 1000 MCG/ML INJECTION SOLUTION 444350 CYANOCOBALAMIN Inactive CITALOPRAM HYDROBROMIDE 20 MG ORAL TABLET take 1 tab p o qday for depresion and anxiety. CITALOPRAM HYDROBROMIDE 20 MG ORAL TABLET 116238 CITALOPRAM HYDROBROMIDE Inactive PROZAC 10 MG ORAL CAPSULE Take 1 tab daily for 1 week. Then increase to 20mg daily. PROZAC 10 MG ORAL CAPSULE 933414 FLUOXETINE HCL Inactive ACZONE 5 % EXTERNAL GEL apply once daily to face 07/22 ACZONE 5 % EXTERNAL GEL 090772 DAPSONE Inactive SULFAMETHOXAZOLE-TRIMETHOPRIM 800-160 MG ORAL TABLET T QUINCY 1 TABLET BY MOUTH DAILY DIRECTED SULFAMETHOXAZOLE-TRI METHOPRIM 800-160 MG ORAL TABLET 813347 SULFAMETHOXAZOLE-TRIMETHOPRIM Inactive ZANTAC 75 75 MG ORAL TABLET take 1 po BID ZANTAC 75 75 MG ORAL TABLET 083961 RANITIDINE HCL Inactive PREDNISONE 20 MG ORAL TABLET 2 tabs daily for 3 days, 1 tab daily for 3 days, 1/2 tab daily for 2 days PREDNISONE 20 MG ORAL T ABLET 421335 PREDNISONE Inactive ZITHROMAX 250 MG ORAL TABLET 2 po today, then 1 po q days 2-5 20 11/06/16 ZITHROMAX 250 MG ORAL TABLET 408399 AZITHROMYCIN [place] ctive ZITHROMAX 250 MG ORAL TABLET 2 po today, then 1 po q days 2-5 20 12/07/06 ZITHROMAX 250 MG ORAL TABLET 891940 AZITHROMYCIN [place] ctive Advance Directives Directive Description [...] Value Unit Range Description Lab Report: Chlamydia/GC APTIMA/03750 - Lab chlamydia DNA probe NOT DETECTED NOT DETECTED chlamydia DNA probe NOT DETECTED NOT DETECTED Lab Report: Chlamydia/GC APTIMA/67783 - Microbiology Neisseria gonorrhoeae DNA probe NOT DETECTED NO T DETECTED Neisseria gonorrhoeae DNA probe NOT DETECTED NO T DETECTED Lab Report: Comp. Metabolic Panel - Chem istry sodium, serum 141 mmol/L 266-775 8815/11/22 carbon dioxide, venous blood 25.2 mmol/L 21.0-32 .0 potassium, serum 3.8 mmol/L 3.5-5.2 chloride, serum 104 mmol/L 98-107 blood glucose 95 mg/dL 65-110 urea nitrogen, blood 15 mg/dL 7-18 creatinine, serum 0.79 mg/dL 0.60-1.30 alanine aminotransferase (SGPT), serum 28 U/L 10-55 aspartate aminotransferase (SGOT), serum 17 U/L 15-45 calcium, serum 8.9 mg/dL 8.5-10.1 bilirubin, serum, total 0.30 mg/dL 0.20-1.00 urea nitrogen, blood 14 mg/dL 7-18 creatinine, serum 1.16 mg/dL 0.60-1.30 alanine aminotransferase (SGPT), serum 21 U/L 10-55 aspartate aminotransferase (SGOT), serum 14 U/L 15-45 calcium, serum 8.7 mg/dL 8.5-10.1 bilirubin, serum, total 0.20 mg/dL 0.20-1.00 blood glucose 85 mg/dL 65-110 chloride, serum 102 mmol/L 98-107 potassium, serum 3.8 mmol/L 3.5-5.2 carbon dioxide, venous blood 25.3 mmol/L 21.0-32 .0 sodium, serum 139 mmol/L 136-145 Lab Report: UADIP W/MICRO, AUTO - Chemis try RBC, urine, dipstick Negative Negative protein, total urine random Negative mg/dL Negative Lab Report: UADIP W/MICRO, AUTO - Urinal ysis glucose, urine, semiquantitative Negative Neg ative urobilinogen, urine, semiquantitative (dipstick) 0.2 E .U./dL Normal leukocyte esterase, urine, by dipstick Negative Negative nitrite, urine, semiquantitative Negative Neg ative appearance, urine Clear Clear specific gravity, urine 1.015 1.000-1.030 pH, urine, semiquantitative 7.0 5.0-8.5 urine color Yellow Colorless;Lightyellow;St raw;Yellow ketones, urine, by test strip Negative Negati ve bilirubin, urine Negative Negative Encounters Code Encounter Date Provider Facility CPT-25064 Level 4 Est. Patient 09:07:11 CDT Adrián dyson MD [facility] CPT-06788 Level 3 New Patient 12:59:59 CDT Madelin almodovar MD [facility]-34942 Level 3 Est. 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 Patient 11:35:37 PIECE CUTTER Cale morris Formerly named [facility]-16257 Level 4 Est. Patient 11:10:55 CDT Shannan Are [facility]-37649 Level 4 Est. Patient 14:07:40 CDT Shannan Are [facility]-86209 Level 4 Est. Patient 13:54:09 CDT Adrián dyson MD [facility] CPT-77583 Level 3 Est. Patient 09:22:14 CDT Adrián dyson MD [facility]-08260 Level 3 Est. Patient 08:59:31 CDT Adrián dyson MD [facility] CPT-38081 Level 3 Est. Patient 11:58:31 CDT Adrián dyson MD [facility] CPT-08144 Level 3 Est. Patient 09:06:35 CDT Adrián dyson MD [facility] CPT-86703 Level 3 Est. Patient 09:18:45 CDT Adrián dyson MD [facility] CPT-05590 Level 3 Est. Patient 09:13:22 CDT Adrián dyson MD [facility] CPT-48606 Level 3 Est. Patient 18:04:31 PIECE CUTTER Adrián dyson MD [facility] CPT-31290 Level 4 Est. Patient 14:00:53 CDT Uriel Ashleyclarissa hintonsriram [facility] CPT-57386 Level 3 Est. Patient 20:00:09 CDT Terry jenkins DO [facility] CPT-22168 Level 3 Est. Patient 08:45:08 CDT Richcristian Ashleyclarissa bhatia [facility] CPT-64451 Level 3 Est. Patient 09:09:26 CDT Richcristian Ashleyclarissa bhatia [facility] CPT-48925 Level 3 Est. Patient 16:32:31 CDT Adrián dyson MD [facility] CPT-74396 Level 3 Est. Patient 09:35:27 PIECE CUTTER Norman fuentes [facility] CPT-63320 Level 2 Est. Patient 16:51:37 PIECE CUTTER Adrián dyson MD [facility] CPT-91069 Level 3 Est. Patient 10:00:11 PIECE CUTTER Ace Arriaza MD [facility] Procedures Code Procedure Name Date Entry Date Standard Desc ription CPT-80836 First Vx - Ix admin via ID I M or jet injects without counseling by physician 09:15:14 CDT CPT-92237 Meningococcal B, recombinant vaccine 09:15:14 CDT CPT-99452 Addl Vx - Ix admin via ID IM or jet injects without counseling by physician 15:35:10 CDT CPT-01425 Meningococcal B, recombinant vaccine 15:35:10 CDT CPT-34306 First Vx - Ix admin via ID I M or jet injects without counseling by physician 15:35:10 CDT CPT-98375 Havrix Intramuscular Suspension 720 EL U /0.5ML 15:35:10 CDT CPT-41568 First Vx - Ix admin via ID I M or jet injects without counseling by physician 14:18:02 CDT CPT-05665 Gardasil 9 Intramuscular Suspension 1 4:18:02 CDT CPT-J3420 Vitamin B12 1000mcg (Cyanocobalamin) 16:30:23 CDT CPT-08153 Abx/Therapy Injection 16:30:23 CDT CPT-J3420 Vitamin B12 1000mcg (Cyanocobalamin) 16:09:42 CDT CPT-03178 Abx/Therapy Injection 16:09:42 CDT CPT-J3420 Vitamin B12 1000mcg (Cyanocobalamin) 15:22:47 CDT CPT-87110 Abx/Therapy Injection 15:22:47 CDT CPT-J3420 Vitamin B12 1000mcg (Cyanocobalamin) 17:00:35 CDT CPT-31218 Abx/Therapy Injection 17:00:35 CDT CPT-96169 First Vx - Ix admin via ID I M or jet injects without counseling by physician 16:04:17 PIECE CUTTER CPT-24329 Gardasil 9 Intramuscular Suspension 1 6:04:17 PIECE CUTTER CPT-12956 Venipuncture Draw Fee 09:40:26 CDT CPT-07081 [place] - LAB USE ONLY 09:40:26 CDT 11/30 CPT-04561 CBC with Diff - LAB USE ONLY 09:40:26 CDT 2 CPT-84288 Addl Vx - Ix admin via ID IM or jet injects without counseling by physician 09:40:21 CDT CPT-06568 Menactra Intramuscular Injectable 09:40:21 CDT CPT-66837 Addl Vx - Ix admin via ID IM or jet injects without counseling by physician 09:40:21 CDT CPT-92261 Gardasil 9 Intramuscular Suspension 0 9:40:21 CDT CPT-04261 First Vx - Ix admin via ID I M or jet injects without counseling by physician 09:40:21 CDT CPT-73313 Havrix Intramuscular Suspension 720 EL U /0.5ML 09:40:21 CDT CPT-J2930 Solu Medrol 125 mg (Methyl Prednisolone Sodium Succinate) 09:43:26 CDT CPT-09416 Abx/Therapy Injection 09:43:26 CDT CPT-J2930 Solu Medrol 125 mg (Methyl Prednisolone Sodium Succinate) 09:05:55 CDT CPT-50305 Abx/Therapy Injection 09:05:55 CDT CPT-79090 Venipuncture Draw Fee 14:01:33 CDT CPT-42347 EKG Trac and Interp 11:22:04 CDT CPT-47936 Venipuncture Draw Fee 10:53:35 CDT CPT-J2930 Solu Medrol 125 mg (Methyl Prednisolone Sodium Succinate) 09:29:26 CDT CPT-57786 Abx/Therapy Injection 09:29:26 CDT CPT-Cryo Cryotherapy 16:51:37 PIECE CUTTER
--- OUTSIDE RECORDS SUMMARY | 2019-07-22 19:29 | XMS REPORT | Clinical Summary ---
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 Other atopic dermatitis and related conditions Contraceptive [...] take 1 tab for mood ESCITALOPRAM OXALATE 32985162332 Active Adrián Varghese MD Active SULFAMETHOXAZOLE-TRIMETHOPRIM 800-160 MG ORAL TABLET T QUINCY 1 TABLET BY MOUTH DAILY DIRECTED SULFAMETHOXAZOLE-TRIMETHOPRIM 49971964916 No Longer Active Madelin Hatch MD Active BUSPIRONE HCL 7.5 MG ORAL TABLET PRN BUSPIR ONE HCL 67658381588 Active Madelin Hatch MD Active PROZAC 20 MG ORAL CAPSULE PRN FLUOXETINE HCL 0077 5913772 Active Madelin Hatch MD Active ABSORICA 20 MG ORAL CAPSULE 1 tablet daily ISOT RETINOIN 82564710752 Active Madelin Hatch MD Active ACZONE 5 % EXTERNAL GEL apply once daily to face 5 DAPSONE 74837238041 No Longer Active Madelin Hatch MD Active PROZAC 10 MG ORAL CAPSULE Take 1 tab daily for 1 week. Then increase to 20mg daily. FLUOXETINE HCL 71976245538 No Longer Active Yulissa Evans APRN Active CITALOPRAM HYDROBROMIDE 20 MG ORAL TABLET take 1 tab p o qday for depresion and anxiety. CITALOPRAM HYDROBROMIDE 94001588965 No L onger Active Shannan Evans APRN Active CYANOCOBALAMIN 1000 MCG/ML INJECTION SOLUTION 1 inject ion weekly for 1 month, than 1 a month for 2 months. recheck lab CYANOCO BALAMIN 84522109432 No Longer Active Shannan Evans APRN Active ULTRAM 50 MG ORAL TABLET 1 TAB PO Q 6 HRS PRN HEADACHE TRAMADOL HCL 96112524791 Active Adrián Varghese MD Active ULTRAM 50 MG ORAL TABLET take 1 tab po q 6 hrs prn headache pain TRAMADOL HCL 50157558772 No Longer Active Adrián Varghese MD Active CLINDAMYCIN PHOSPHATE 2 % VAGINAL CREAM apply cream to acne BID prn CLINDAMYCIN PHOSPHATE 35938665469 No Longer Active Adrián dyson MD Active MINOCYCLINE HCL 100 MG ORAL CAPSULE take one po BID 13/11/25 MINOCYCLINE HCL 00472757243 No Longer Active Adrián Varghese MD A ctive TRI-SPRINTEC 0.18/0.215/0.25 MG-35 MCG ORAL TABLET 1 po qd a s directed NORGESTIM-ETH ESTRAD TRIPHASIC 07284931652 Active Madelin Hatch MD Active ZITHROMAX 250 MG ORAL TABLET 2 po today, then 1 po q days 2-5 20 12/07/06 AZITHROMYCIN 54186744312 No Longer Active Adrián Varghese MD Active ZITHROMAX 250 MG ORAL TABLET 2 po today, then 1 po q days 2-5 20 11/06/16 AZITHROMYCIN 18412010768 No Longer Active Adrián Varghese MD Active PREDNISONE 20 MG ORAL TABLET 2 tabs daily for 3 days, 1 tab daily for 3 days, 1/2 tab daily for 2 days PREDNISONE 63303921717 No Longer Active Adrián Varghese MD Active ZANTAC 75 75 MG ORAL TABLET take 1 po BID RANIT IDINE HCL 23655280365 No Longer Active Uriel BOYD Active BENZACLIN 1-5 % EXTERNAL GEL apply to skin BID prn for acne 2012 CLINDAMYCIN PHOS-BENZOYL PEROX 90508187769 No Longer Active Uriel BOYD Active BENZACLIN 1-5 % EXTERNAL GEL apply to skin BID prn for acne 2012 BENZACLIN 1-5 % EXTERNAL GEL 533319 CLINDAMYCIN PHOS-BE NZOYL PEROX Inactive MINOCYCLINE HCL 100 MG ORAL CAPSULE take one po BID 13/11/25 MINOCYCLINE HCL 100 MG ORAL CAPSULE 914851 MINOCYCLINE HCL Inac tive CLINDAMYCIN PHOSPHATE 2 % VAGINAL CREAM apply cream to acne BID prn CLINDAMYCIN PHOSPHATE 2 % VAGINAL CREAM 833354 CLINDAMY ANGELIA PHOSPHATE Inactive ULTRAM 50 MG ORAL TABLET take 1 tab po q 6 hrs prn headache pain ULTRAM 50 MG ORAL TABLET 125296 TRAMADOL HCL Inactiv e CYANOCOBALAMIN 1000 MCG/ML INJECTION SOLUTION 1 inject ion weekly for 1 month, than 1 a month for 2 months. recheck lab CYANOCOBALAMIN 1000 MCG/ML INJECTION SOLUTION 038670 CYANOCOBALAMIN Inactive CITALOPRAM HYDROBROMIDE 20 MG ORAL TABLET take 1 tab p o qday for depresion and anxiety. CITALOPRAM HYDROBROMIDE 20 MG ORAL TABLET 576978 CITALOPRAM HYDROBROMIDE Inactive PROZAC 10 MG ORAL CAPSULE Take 1 tab daily for 1 week. Then increase to 20mg daily. PROZAC 10 MG ORAL CAPSULE 582958 FLUOXETINE HCL Inactive ACZONE 5 % EXTERNAL GEL apply once daily to face 07/22 ACZONE 5 % EXTERNAL GEL 269298 DAPSONE Inactive SULFAMETHOXAZOLE-TRIMETHOPRIM 800-160 MG ORAL TABLET T QUINCY 1 TABLET BY MOUTH DAILY DIRECTED SULFAMETHOXAZOLE-TRI METHOPRIM 800-160 MG ORAL TABLET 384201 SULFAMETHOXAZOLE-TRIMETHOPRIM Inactive ZANTAC 75 75 MG ORAL TABLET take 1 po BID ZANTAC 75 75 MG ORAL TABLET 551742 RANITIDINE HCL Inactive PREDNISONE 20 MG ORAL TABLET 2 tabs daily for 3 days, 1 tab daily for 3 days, 1/2 tab daily for 2 days PREDNISONE 20 MG ORAL T ABLET 427812 PREDNISONE Inactive ZITHROMAX 250 MG ORAL TABLET 2 po today, then 1 po q days 2-5 20 11/06/16 ZITHROMAX 250 MG ORAL TABLET 315656 AZITHROMYCIN [place] [facility] ZITHROMAX 250 MG ORAL TABLET 2 po today, then 1 po q days 2-5 20 12/07/06 ZITHROMAX 250 MG ORAL TABLET 863334 AZITHROMYCIN [place] ctive Advance Directives Directive Description Start Date [...] Value Unit Range Description Lab Report: Chlamydia/GC APTIMA/03822 - Lab chlamydia DNA probe NOT DETECTED NOT DETECTED chlamydia DNA probe NOT DETECTED NOT DETECTED Lab Report: Chlamydia/GC APTIMA/25218 - Microbiology Neisseria gonorrhoeae DNA probe NOT DETECTED NO T DETECTED Neisseria gonorrhoeae DNA probe NOT DETECTED NO T DETECTED Lab Report: Comp. Metabolic Panel - Chem istry sodium, serum 141 mmol/L 777-980 6141/11/22 carbon dioxide, venous blood 25.2 mmol/L 21.0-32 .0 potassium, serum 3.8 mmol/L 3.5-5.2 chloride, serum 104 mmol/L 98-107 blood glucose 95 mg/dL 65-110 urea nitrogen, blood 15 mg/dL 7-18 creatinine, serum 0.79 mg/dL 0.60-1.30 alanine aminotransferase (SGPT), serum 28 U/L 10-55 aspartate aminotransferase (SGOT), serum 17 U/L 15-45 calcium, serum 8.9 mg/dL 8.5-10.1 bilirubin, serum, total 0.30 mg/dL 0.20-1.00 sodium, serum 139 mmol/L 955-691 3504/09/06 carbon dioxide, venous blood 25.3 mmol/L 21.0-32 [...] 5.0-8.5 Encounters Code Encounter Date Provider Facility CPT-20551 Level 4 Est. Patient 09:07:11 CDT Adrián dyson MD [facility] CPT-81027 Level 3 New Patient 12:59:59 CDT Madelin almodovar MD [facility]-09921 Level 3 Est. Patient 10:07:39 PATIENT ADVOCATE Cale morris [facility] [place]note 2]-80354 Level 3 Est. Patient 11:35:37 PATIENT ADVOCATE Cale morris [facility] [place][note 2]-97200 Level 4 Est. Patient 11:10:55 CDT Shannan Are [facility]-74908 Level 4 Est. Patient 14:07:40 CDT Shannan Are [facility]-67126 Level 4 Est. Patient 13:54:09 CDT Adrián dyson MD [facility]-30612 Level 3 Est. Patient 09:22:14 CDT Adrián dyson MD [facility]-46989 Level 3 Est. Patient 08:59:31 CDT Adrián dyson MD [facility]-30268 Level 3 Est. Patient 11:58:31 CDT Adrián dyson MD [facility] CPT-32732 Level 3 Est. Patient 09:06:35 CDT Adrián dyson MD [facility] CPT-28839 Level 3 Est. Patient 09:18:45 CDT Adrián dyson MD [facility] CPT-59861 Level 3 Est. Patient 09:13:22 CDT Adrián dyson MD [facility] CPT-22011 Level 3 Est. Patient 18:04:31 PATIENT ADVOCATE Adrián dyson MD [facility] CPT-23488 Level 4 Est. Patient 14:00:53 CDT Uriel Ashleyclarissa hintonsriram [facility] CPT-39561 Level 3 Est. Patient 20:00:09 CDT Terry jenkins DO [facility] CPT-93363 Level 3 Est. Patient 08:45:08 CDT Richcristian bhatia [facility] CPT-34609 Level 3 Est. Patient 09:09:26 CDT Richcristian clarissa sriram [facility] CPT-59056 Level 3 Est. Patient 16:32:31 CDT Adrián dyson MD [facility] CPT-51675 Level 3 Est. Patient 09:35:27 PATIENT ADVOCATE Norman fuentes [facility] CPT-75974 Level 2 Est. Patient 16:51:37 PATIENT ADVOCATE Adrián dyson MD [facility] CPT-97974 Level 3 Est. Patient 10:00:11 PATIENT ADVOCATE Ace Arriaza MD [facility] Procedures Code Procedure Name Date Entry Date Standard Desc ription CPT-84714 First Vx - Ix admin via ID I M or jet injects without counseling by physician 09:15:14 CDT CPT-76332 Meningococcal B, recombinant vaccine 09:15:14 CDT CPT-65925 Addl Vx - Ix admin via ID IM or jet injects without counseling by physician 15:35:10 CDT CPT-32565 Meningococcal B, recombinant vaccine 15:35:10 CDT CPT-95926 First Vx - Ix admin via ID I M or jet injects without counseling by physician 15:35:10 CDT CPT-38713 Havrix Intramuscular Suspension 720 EL U /0.5ML 15:35:10 CDT CPT-44960 First Vx - Ix admin via ID I M or jet injects without counseling by physician 14:18:02 CDT CPT-03895 Gardasil 9 Intramuscular Suspension 1 4:18:02 CDT CPT-J3420 Vitamin B12 1000mcg (Cyanocobalamin) 16:30:23 CDT CPT-61473 Abx/Therapy Injection 16:30:23 CDT CPT-J3420 Vitamin B12 1000mcg (Cyanocobalamin) 16:09:42 CDT CPT-28008 Abx/Therapy Injection 16:09:42 CDT CPT-J3420 Vitamin B12 1000mcg (Cyanocobalamin) 15:22:47 CDT CPT-44209 Abx/Therapy Injection 15:22:47 CDT CPT-J3420 Vitamin B12 1000mcg (Cyanocobalamin) 17:00:35 CDT CPT-87346 Abx/Therapy Injection 17:00:35 CDT CPT-56040 First Vx - Ix admin via ID I M or jet injects without counseling by physician 16:04:17 PATIENT ADVOCATE CPT-23492 Gardasil 9 Intramuscular Suspension 1 6:04:17 PATIENT ADVOCATE CPT-77493 Venipuncture Draw Fee 09:40:26 CDT CPT-16763 [place] [facility] - LAB USE ONLY 09:40:26 CDT 11/30 CPT-07483 CBC with Diff - LAB USE ONLY 09:40:26 CDT 2 CPT-01730 Addl Vx - Ix admin via ID IM or jet injects without counseling by physician 09:40:21 CDT CPT-79092 Menactra Intramuscular Injectable 09:40:21 CDT CPT-89456 Addl Vx - Ix admin via ID IM or jet injects without counseling by physician 09:40:21 CDT CPT-56405 Gardasil 9 Intramuscular Suspension 0 9:40:21 CDT CPT-99901 First Vx - Ix admin via ID I M or jet injects without counseling by physician 09:40:21 CDT CPT-98100 Havrix Intramuscular Suspension 720 EL U /0.5ML 09:40:21 CDT CPT-J2930 Solu Medrol 125 mg (Methyl Prednisolone Sodium Succinate) 09:43:26 CDT CPT-41230 Abx/Therapy Injection 09:43:26 CDT CPT-J2930 Solu Medrol 125 mg (Methyl Prednisolone Sodium Succinate) 09:05:55 CDT CPT-65969 Abx/Therapy Injection 09:05:55 CDT CPT-42267 Venipuncture Draw Fee 14:01:33 CDT CPT-54824 EKG Trac and Interp 11:22:04 CDT CPT-98377 Venipuncture Draw Fee 10:53:35 CDT CPT-J2930 Solu Medrol 125 mg (Methyl Prednisolone Sodium Succinate) 09:29:26 CDT CPT-64274 Abx/Therapy Injection 09:29:26 CDT CPT-Cryo Cryotherapy 16:51:37 PATIENT ADVOCATE
--- OUTSIDE RECORDS SUMMARY | 2019-07-22 19:29 | XMS REPORT | Clinical Summary ---
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 Other atopic dermatitis and related conditions Contraceptive management V25.09 Active Madelin arguelles MD Encounter for other general counseling and advice on contraceptive management Std screening V74.5 Active Madelin Hatch MD Screening examination for venereal disease Preventive health care V70.0 Active Adirán hughes MD Routine general medical examination at a health care facility Major depressive disorder, recurrent, moderate 296.30 Active Adrián Varghese MD Major depressive dis order, recurrent episode, unspecified degree ACUTE BRONCHITIS ICD-466.0 Inactive Adrián hughes MD [...] take 1 tab for mood ESCITALOPRAM OXALATE 76084340515 Active Adrián Varghese MD Active SULFAMETHOXAZOLE-TRIMETHOPRIM 800-160 MG ORAL TABLET T QUINCY 1 TABLET BY MOUTH DAILY DIRECTED SULFAMETHOXAZOLE-TRIMETHOPRIM 14788804183 No Longer Active Madelin Hatch MD Active BUSPIRONE HCL 7.5 MG ORAL TABLET PRN BUSPIR ONE HCL 59657585708 Active Madelin Hatch MD Active PROZAC 20 MG ORAL CAPSULE PRN FLUOXETINE HCL 0077 8426041 Active Madelin Hatch MD Active ABSORICA 20 MG ORAL CAPSULE 1 tablet daily ISOT RETINOIN 59936585948 Active Madelin Hatch MD Active ACZONE 5 % EXTERNAL GEL apply once daily to face 5 DAPSONE 03256138404 No Longer Active Madelin Hatch MD Active PROZAC 10 MG ORAL CAPSULE Take 1 tab daily for 1 week. Then increase to 20mg daily. FLUOXETINE HCL 50145759426 No Longer Active Yulissa ortega Cristina WARD Active CITALOPRAM HYDROBROMIDE 20 MG ORAL TABLET take 1 tab p o qday for depresion and anxiety. CITALOPRAM HYDROBROMIDE 01645195698 No L onger Active Shannan Evans APRN Active CYANOCOBALAMIN 1000 MCG/ML INJECTION SOLUTION 1 inject ion weekly for 1 month, than 1 a month for 2 months. recheck lab CYANOCO BALAMIN 47825330819 No Longer Active Shannan Evans APRN Active ULTRAM 50 MG ORAL TABLET 1 TAB PO Q 6 HRS PRN HEADACHE TRAMADOL HCL 31067566850 Active Adrián Varghese MD Active ULTRAM 50 MG ORAL TABLET take 1 tab po q 6 hrs prn headache pain TRAMADOL HCL 38321110778 No Longer Active Adrián Varghese MD Active CLINDAMYCIN PHOSPHATE 2 % VAGINAL CREAM apply cream to acne BID prn CLINDAMYCIN PHOSPHATE 94698969492 No Longer Active Adrián dyson MD Active MINOCYCLINE HCL 100 MG ORAL CAPSULE take one po BID 13/11/25 MINOCYCLINE HCL 55153221860 No Longer Active Adrián Varghese MD A ctive TRI-SPRINTEC 0.18/0.215/0.25 MG-35 MCG ORAL TABLET 1 po qd a s directed NORGESTIM-ETH ESTRAD TRIPHASIC 64783059263 Active Madelin Hatch MD Active ZITHROMAX 250 MG ORAL TABLET 2 po today, then 1 po q days 2-5 20 12/07/06 AZITHROMYCIN 03936030062 No Longer Active Adrián Varghese MD Active ZITHROMAX 250 MG ORAL TABLET 2 po today, then 1 po q days 2-5 20 11/06/16 AZITHROMYCIN 97954555622 No Longer Active Adrián Varghese MD Active PREDNISONE 20 MG ORAL TABLET 2 tabs daily for 3 days, 1 tab daily for 3 days, 1/2 tab daily for 2 days PREDNISONE 82523387088 No Longer Active Adrián Varghese MD Active ZANTAC 75 75 MG ORAL TABLET take 1 po BID RANIT IDINE HCL 90724805186 No Longer Active Uriel BOYD Active BENZACLIN 1-5 % EXTERNAL GEL apply to skin BID prn for acne 2012 CLINDAMYCIN PHOS-BENZOYL PEROX 84029602102 No Longer Active Uriel BOYD Active CYANOCOBALAMIN 1000 MCG/ML INJECTION SOLUTION 1 inject ion weekly for 1 month, than 1 a month for 2 months. recheck lab CYANOCOBALAMIN 1000 MCG/ML INJECTION SOLUTION 076736 CYANOCOBALAMIN Inactive MINOCYCLINE HCL 100 MG ORAL CAPSULE take one po BID 13/11/25 MINOCYCLINE HCL 100 MG ORAL CAPSULE 168374 MINOCYCLINE HCL Inac tive PREDNISONE 20 MG ORAL TABLET 2 tabs daily for 3 days, 1 tab daily for 3 days, 1/2 tab daily for 2 days PREDNISONE 20 MG ORAL T ABLET 220751 PREDNISONE Inactive PROZAC 10 MG ORAL CAPSULE Take 1 tab daily for 1 week. Then increase to 20mg daily. PROZAC 10 MG ORAL CAPSULE 563751 FLUOXETINE HCL Inactive CLINDAMYCIN PHOSPHATE 2 % VAGINAL CREAM apply cream to acne BID prn CLINDAMYCIN PHOSPHATE 2 % VAGINAL CREAM 821397 CLINDAMY ANGELIA PHOSPHATE Inactive SULFAMETHOXAZOLE-TRIMETHOPRIM 800-160 MG ORAL TABLET T QUINCY 1 TABLET BY MOUTH DAILY DIRECTED SULFAMETHOXAZOLE-TRI METHOPRIM 800-160 MG ORAL TABLET 315762 SULFAMETHOXAZOLE-TRIMETHOPRIM Inactive ULTRAM 50 MG ORAL TABLET take 1 tab po q 6 hrs prn headache pain ULTRAM 50 MG ORAL TABLET 723484 TRAMADOL HCL Inactiv e ZANTAC 75 75 MG ORAL TABLET take 1 po BID ZANTAC 75 75 MG ORAL TABLET 829658 RANITIDINE HCL Inactive ZITHROMAX 250 MG ORAL TABLET 2 po today, then 1 po q days 2-5 20 11/06/16 ZITHROMAX 250 MG ORAL TABLET 427356 AZITHROMYCIN [place] ct[facility] ZITHROMAX 250 MG ORAL TABLET 2 po today, then 1 po q days 2-5 20 12/07/06 ZITHROMAX 250 MG ORAL TABLET 370240 AZITHROMYCIN [place] ctive CITALOPRAM HYDROBROMIDE 20 MG ORAL TABLET take 1 tab p o qday for depresion and anxiety. CITALOPRAM HYDROBROMIDE 20 MG ORAL TABLET 656349 CITALOPRAM HYDROBROMIDE Inactive BENZACLIN 1-5 % EXTERNAL GEL apply to skin BID prn for acne 2012 BENZACLIN 1-5 % EXTERNAL GEL 019907 CLINDAMYCIN PHOS-BE NZOYL PEROX Inactive ACZONE 5 % EXTERNAL GEL apply once daily to face 07/22 ACZONE 5 % EXTERNAL GEL 851225 DAPSONE Inactive Advance Directives Directive Description Start [...] Value Unit Range Description blood pressure, diastolic 78 mm[Hg] BP jones [...] d blood pressure, diastolic 68 mm[Hg] BP jonse blood pressure, systolic 113 mm[Hg] BP sys [...] Value Unit Range Description Lab Report: Chlamydia/GC APTIMA/99144 - Lab chlamydia DNA probe NOT DETECTED NOT DETECTED chlamydia DNA probe NOT DETECTED NOT DETECTED Lab Report: Chlamydia/GC APTIMA/94432 - Microbiology Neisseria gonorrhoeae DNA probe NOT DETECTED NO T DETECTED Neisseria gonorrhoeae DNA probe NOT DETECTED NO T DETECTED Lab Report: Comp. Metabolic Panel - Chem istry sodium, serum 141 mmol/L 598-630 0111/11/22 carbon dioxide, venous blood 25.2 mmol/L 21.0-32 .0 potassium, serum 3.8 mmol/L 3.5-5.2 chloride, serum 104 mmol/L 98-107 blood glucose 95 mg/dL 65-110 urea nitrogen, blood 15 mg/dL 7-18 creatinine, serum 0.79 mg/dL 0.60-1.30 alanine aminotransferase (SGPT), serum 28 U/L 10-55 aspartate aminotransferase (SGOT), serum 17 U/L 15-45 calcium, serum 8.9 mg/dL 8.5-10.1 bilirubin, serum, total 0.30 mg/dL 0.20-1.00 sodium, serum 139 mmol/L 785-680 4232/09/06 carbon dioxide, venous blood 25.3 mmol/L 21.0-32 [...] 5.0-8.5 Encounters Code Encounter Date Provider Facility CPT-80068 Level 4 Est. Patient 09:07:11 CDT Adrián dyson MD [facility] CPT-11565 Level 3 New Patient 12:59:59 CDT Madelin almodovar MD [facility] CPT-24942 Level 3 Est. Patient 10:07:39 BUYING AGENT Cale morris [facility] CPT-43705 Level 3 Est. Patient 11:35:37 BUYING AGENT Cale morris [facility] CPT-92370 Level 4 Est. Patient 11:10:55 CDT Shannan Are ll [facility] CPT-08454 Level 4 Est. Patient 14:07:40 CDT Shannan Are ll [facility]-52079 Level 4 Est. Patient 13:54:09 CDT Adrián dyson MD [facility]-00860 Level 3 Est. Patient 09:22:14 CDT Adrián dyson MD [facility]-07976 Level 3 Est. Patient 08:59:31 CDT Adrián dyson MD [facility]-28970 Level 3 Est. Patient 11:58:31 CDT Adrián dyson MD [facility] CPT-59687 Level 3 Est. Patient 09:06:35 CDT Adrián dyson MD [facility] CPT-28276 Level 3 Est. Patient 09:18:45 CDT Adrián dyson MD [facility] CPT-87973 Level 3 Est. Patient 09:13:22 CDT Adrián dyson MD [facility]-96868 Level 3 Est. Patient 18:04:31 BUYING AGENT Adrián dyson MD [facility] CPT-10492 Level 4 Est. Patient 14:00:53 CDT Uriel bhatia [facility] CPT-72564 Level 3 Est. Patient 20:00:09 CDT Terry jenkins DO [facility]-69580 Level 3 Est. Patient 08:45:[address] [facility]-95389 Level 3 Est. Patient 09:09:26 CDT Uriel bhatia [facility]-36073 Level 3 Est. Patient 16:32:31 CDT Adrián dyson MD [facility] CPT-71643 Level 3 Est. Patient 09:35:27 BUYING AGENT Norman BOYD [facility] CPT-06347 Level 2 Est. Patient 16:51:37 BUYING AGENT Adrián dyson MD [facility] CPT-79240 Level 3 Est. Patient 10:00:11 BUYING AGENT Ace Arriaza MD [facility] Procedures Code Procedure Name Date Entry Date Standard Desc ription CPT-08252 First Vx - Ix admin via ID I M or jet injects without counseling by physician 09:15:14 CDT CPT-37773 Meningococcal B, recombinant vaccine 09:15:14 CDT CPT-80704 Addl Vx - Ix admin via ID IM or jet injects without counseling by physician 15:35:10 CDT CPT-54643 Meningococcal B, recombinant vaccine 15:35:10 CDT CPT-97138 First Vx - Ix admin via ID I M or jet injects without counseling by physician 15:35:10 CDT CPT-71419 Havrix Intramuscular Suspension 720 EL U /0.5ML 15:35:10 CDT CPT-09772 First Vx - Ix admin via ID I M or jet injects without counseling by physician 14:18:02 CDT CPT-35807 Gardasil 9 Intramuscular Suspension 1 4:18:02 CDT CPT-J3420 Vitamin B12 1000mcg (Cyanocobalamin) 16:30:23 CDT CPT-00535 Abx/Therapy Injection 16:30:23 CDT CPT-J3420 Vitamin B12 1000mcg (Cyanocobalamin) 16:09:42 CDT CPT-27362 Abx/Therapy Injection 16:09:42 CDT CPT-J3420 Vitamin B12 1000mcg (Cyanocobalamin) 15:22:47 CDT CPT-36514 Abx/Therapy Injection 15:22:47 CDT CPT-J3420 Vitamin B12 1000mcg (Cyanocobalamin) 17:00:35 CDT CPT-94151 Abx/Therapy Injection 17:00:35 CDT CPT-51685 First Vx - Ix admin via ID I M or jet injects without counseling by physician 16:04:17 BUYING AGENT CPT-19287 Gardasil 9 Intramuscular Suspension 1 6:04:17 BUYING AGENT CPT-22080 Venipuncture Draw Fee 09:40:26 CDT CPT-23658 [place] [facility] - LAB USE ONLY 09:40:26 CDT 11/30 CPT-04094 CBC with Diff - LAB USE ONLY 09:40:26 CDT 2 CPT-80079 Addl Vx - Ix admin via ID IM or jet injects without counseling by physician 09:40:21 CDT CPT-40237 Menactra Intramuscular Injectable 09:40:21 CDT CPT-37050 Addl Vx - Ix admin via ID IM or jet injects without counseling by physician 09:40:21 CDT CPT-53330 Gardasil 9 Intramuscular Suspension 0 9:40:21 CDT CPT-57902 First Vx - Ix admin via ID I M or jet injects without counseling by physician 09:40:21 CDT CPT-29800 Havrix Intramuscular Suspension 720 EL U /0.5ML 09:40:21 CDT CPT-J2930 Solu Medrol 125 mg (Methyl Prednisolone Sodium Succinate) 09:43:26 CDT CPT-27759 Abx/Therapy Injection 09:43:26 CDT CPT-J2930 Solu Medrol 125 mg (Methyl Prednisolone Sodium Succinate) 09:05:55 CDT CPT-91643 Abx/Therapy Injection 09:05:55 CDT CPT-11749 Venipuncture Draw Fee 14:01:33 CDT CPT-39048 EKG Trac and Interp 11:22:04 CDT CPT-24741 Venipuncture Draw Fee 10:53:35 CDT CPT-J2930 Solu Medrol 125 mg (Methyl Prednisolone Sodium Succinate) 09:29:26 CDT CPT-91223 Abx/Therapy Injection 09:29:26 CDT CPT-Cryo Cryotherapy 16:51:37 BUYING AGENT
--- OUTSIDE RECORDS SUMMARY | 2019-07-22 19:29 | XMS REPORT | Clinical Summary ---
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 Other atopic dermatitis and related conditions Contraceptive [...] take 1 tab for mood ESCITALOPRAM OXALATE 09345168547 Active Adrián Varghese MD Active SULFAMETHOXAZOLE-TRIMETHOPRIM 800-160 MG ORAL TABLET T QUINCY 1 TABLET BY MOUTH DAILY DIRECTED SULFAMETHOXAZOLE-TRIMETHOPRIM 95058069511 No Longer Active Madelin Hatch MD Active BUSPIRONE HCL 7.5 MG ORAL TABLET PRN BUSPIR ONE HCL 44394014511 Active Madelin Hatch MD Active PROZAC 20 MG ORAL CAPSULE PRN FLUOXETINE HCL 0077 0030198 Active Madelin Hatch MD Active ABSORICA 20 MG ORAL CAPSULE 1 tablet daily ISOT RETINOIN 19728018556 Active Madelin Hatch MD Active ACZONE 5 % EXTERNAL GEL apply once daily to face 5 DAPSONE 97576588402 No Longer Active Madelin Hatch MD Active PROZAC 10 MG ORAL CAPSULE Take 1 tab daily for 1 week. Then increase to 20mg daily. FLUOXETINE HCL 13077165044 No Longer Active Yulissa Evans APRN Active CITALOPRAM HYDROBROMIDE 20 MG ORAL TABLET take 1 tab p o qday for depresion and anxiety. CITALOPRAM HYDROBROMIDE 62820511871 No L onger Active Shannan Evans APRN Active CYANOCOBALAMIN 1000 MCG/ML INJECTION SOLUTION 1 inject ion weekly for 1 month, than 1 a month for 2 months. recheck lab CYANOCO BALAMIN 12828697903 No Longer Active Shannan Evans APRN Active ULTRAM 50 MG ORAL TABLET 1 TAB PO Q 6 HRS PRN HEADACHE TRAMADOL HCL 02618383148 Active Adrián Varghese MD Active ULTRAM 50 MG ORAL TABLET take 1 tab po q 6 hrs prn headache pain TRAMADOL HCL 17520516406 No Longer Active Adrián Varghese MD Active CLINDAMYCIN PHOSPHATE 2 % VAGINAL CREAM apply cream to acne BID prn CLINDAMYCIN PHOSPHATE 25097453046 No Longer Active Adrián dyson MD Active MINOCYCLINE HCL 100 MG ORAL CAPSULE take one po BID 20 13/11/25 MINOCYCLINE HCL 05393102713 No Longer Active Adrián Varghese MD A ctive TRI-SPRINTEC 0.18/0.215/0.25 MG-35 MCG ORAL TABLET 1 po qd a s directed NORGESTIM-ETH ESTRAD TRIPHASIC 01419504901 Active Madelin Hatch MD Active ZITHROMAX 250 MG ORAL TABLET 2 po today, then 1 po q days 2-5 20 12/07/06 AZITHROMYCIN 91952898446 No Longer Active Adrián Varghese MD Active ZITHROMAX 250 MG ORAL TABLET 2 po today, then 1 po q days 2-5 20 11/06/16 AZITHROMYCIN 70085574538 No Longer Active Adrián Varghese MD Active PREDNISONE 20 MG ORAL TABLET 2 tabs daily for 3 days, 1 tab daily for 3 days, 1/2 tab daily for 2 days PREDNISONE 13048917712 No Longer Active Adrián Varghese MD Active ZANTAC 75 75 MG ORAL TABLET take 1 po BID RANIT IDINE HCL 56193467346 No Longer Active Uriel BOYD Active BENZACLIN 1-5 % EXTERNAL GEL apply to skin BID prn for acne 2012 CLINDAMYCIN PHOS-BENZOYL PEROX 82862608402 No Longer Active Uriel BOYD Active BENZACLIN 1-5 % EXTERNAL GEL apply to skin BID prn for acne 2012 BENZACLIN 1-5 % EXTERNAL GEL 689430 CLINDAMYCIN PHOS-BE NZOYL PEROX Inactive MINOCYCLINE HCL 100 MG ORAL CAPSULE take one po BID 13/11/25 MINOCYCLINE HCL 100 MG ORAL CAPSULE 115806 MINOCYCLINE HCL Inac tive CLINDAMYCIN PHOSPHATE 2 % VAGINAL CREAM apply cream to acne BID prn CLINDAMYCIN PHOSPHATE 2 % VAGINAL CREAM 694604 CLINDAMY ANGELIA PHOSPHATE Inactive ULTRAM 50 MG ORAL TABLET take 1 tab po q 6 hrs prn headache pain ULTRAM 50 MG ORAL TABLET 954534 TRAMADOL HCL Inactiv e CYANOCOBALAMIN 1000 MCG/ML INJECTION SOLUTION 1 inject ion weekly for 1 month, than 1 a month for 2 months. recheck lab CYANOCOBALAMIN 1000 MCG/ML INJECTION SOLUTION 260553 CYANOCOBALAMIN Inactive CITALOPRAM HYDROBROMIDE 20 MG ORAL TABLET take 1 tab p o qday for depresion and anxiety. CITALOPRAM HYDROBROMIDE 20 MG ORAL TABLET 122569 CITALOPRAM HYDROBROMIDE Inactive PROZAC 10 MG ORAL CAPSULE Take 1 tab daily for 1 week. Then increase to 20mg daily. PROZAC 10 MG ORAL CAPSULE 507837 FLUOXETINE HCL Inactive ACZONE 5 % EXTERNAL GEL apply once daily to face 07/22 ACZONE 5 % EXTERNAL GEL 616156 DAPSONE Inactive SULFAMETHOXAZOLE-TRIMETHOPRIM 800-160 MG ORAL TABLET T QUINCY 1 TABLET BY MOUTH DAILY DIRECTED SULFAMETHOXAZOLE-TRI METHOPRIM 800-160 MG ORAL TABLET 416148 SULFAMETHOXAZOLE-TRIMETHOPRIM Inactive ZANTAC 75 75 MG ORAL TABLET take 1 po BID ZANTAC 75 75 MG ORAL TABLET 837165 RANITIDINE HCL Inactive PREDNISONE 20 MG ORAL TABLET 2 tabs daily for 3 days, 1 tab daily for 3 days, 1/2 tab daily for 2 days PREDNISONE 20 MG ORAL T ABLET 383335 PREDNISONE Inactive ZITHROMAX 250 MG ORAL TABLET 2 po today, then 1 po q days 2-5 20 11/06/16 ZITHROMAX 250 MG ORAL TABLET 964290 AZITHROMYCIN [place] ctive ZITHROMAX 250 MG ORAL TABLET 2 po today, then 1 po q days 2-5 20 12/07/06 ZITHROMAX 250 MG ORAL TABLET 766142 AZITHROMYCIN [place] ctive Advance Directives Directive Description [...] Value Unit Range Description Lab Report: Chlamydia/GC APTIMA/60110 - Lab chlamydia DNA probe NOT DETECTED NOT DETECTED chlamydia DNA probe NOT DETECTED NOT DETECTED Lab Report: Chlamydia/GC APTIMA/31893 - Microbiology Neisseria gonorrhoeae DNA probe NOT DETECTED NO T DETECTED Neisseria gonorrhoeae DNA probe NOT DETECTED NO T DETECTED Lab Report: Comp. Metabolic Panel - Chem istry sodium, serum 141 mmol/L 336-147 8574/11/22 carbon dioxide, venous blood 25.2 mmol/L 21.0-32 .0 potassium, serum 3.8 mmol/L 3.5-5.2 chloride, serum 104 mmol/L 98-107 blood glucose 95 mg/dL 65-110 urea nitrogen, blood 15 mg/dL 7-18 creatinine, serum 0.79 mg/dL 0.60-1.30 alanine aminotransferase (SGPT), serum 28 U/L 10-55 aspartate aminotransferase (SGOT), serum 17 U/L 15-45 calcium, serum 8.9 mg/dL 8.5-10.1 bilirubin, serum, total 0.30 mg/dL 0.20-1.00 sodium, serum 139 mmol/L 549-214 1927/09/06 carbon dioxide, venous blood 25.3 mmol/L 21.0-32 [...] 5.0-8.5 Encounters Code Encounter Date Provider Facility CPT-44901 Level 4 Est. Patient 09:07:11 CDT Adrián dyson MD [facility] CPT-48907 Level 3 New Patient 12:59:59 CDT Madelin almodovar MD [facility]-21461 Level 3 Est. 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 Patient 11:35:37 FONDANT PUFF MAKER Cale morris [facility]-09177 Level 4 Est. Patient 11:10:55 CDT Shannan Are [facility]-72286 Level 4 Est. Patient 14:07:40 CDT Shannan Are [facility]-88258 Level 4 Est. Patient 13:54:09 CDT Adrián dyson MD [facility]-64509 Level 3 Est. Patient 09:22:14 CDT Adrián dyson MD [facility]-45400 Level 3 Est. Patient 08:59:31 CDT Adrián dyson MD [facility]-88914 Level 3 Est. Patient 11:58:31 CDT Adrián dyson MD [facility] CPT-59880 Level 3 Est. Patient 09:06:35 CDT Adrián dyson MD [facility] CPT-83550 Level 3 Est. Patient 09:18:45 CDT Adrián dyson MD [facility] CPT-02539 Level 3 Est. Patient 09:13:22 CDT Adrián dyson MD [facility] CPT-89103 Level 3 Est. Patient 18:04:31 FONDANT PUFF MAKER Adrián dyson MD [facility] CPT-83359 Level 4 Est. Patient 14:00:53 CDT Uriel Ashleyclarissa hintonsriram [facility] CPT-81538 Level 3 Est. Patient 20:00:09 CDT Terry jenkins DO [facility] CPT-00918 Level 3 Est. Patient 08:45:08 CDT Richcristian Ashleyclarissa bhatia [facility] CPT-50167 Level 3 Est. Patient 09:09:26 CDT Richcristian Ashleyclarissa bhatia [facility] CPT-91286 Level 3 Est. Patient 16:32:31 CDT Adrián dyson MD [facility] CPT-18392 Level 3 Est. Patient 09:35:27 FONDANT PUFF MAKER Norman fuentes [facility] CPT-02829 Level 2 Est. Patient 16:51:37 FONDANT PUFF MAKER Adrián dyson MD [facility] CPT-15547 Level 3 Est. Patient 10:00:11 FONDANT PUFF MAKER Ace Arriaza MD [facility] Procedures Code Procedure Name Date Entry Date Standard Desc ription CPT-46646 First Vx - Ix admin via ID I M or jet injects without counseling by physician 09:15:14 CDT CPT-79620 Meningococcal B, recombinant vaccine 09:15:14 CDT CPT-82261 Addl Vx - Ix admin via ID IM or jet injects without counseling by physician 15:35:10 CDT CPT-20288 Meningococcal B, recombinant vaccine 15:35:10 CDT CPT-00215 First Vx - Ix admin via ID I M or jet injects without counseling by physician 15:35:10 CDT CPT-70956 Havrix Intramuscular Suspension 720 EL U /0.5ML 15:35:10 CDT CPT-80168 First Vx - Ix admin via ID I M or jet injects without counseling by physician 14:18:02 CDT CPT-08032 Gardasil 9 Intramuscular Suspension 1 4:18:02 CDT CPT-J3420 Vitamin B12 1000mcg (Cyanocobalamin) 16:30:23 CDT CPT-18623 Abx/Therapy Injection 16:30:23 CDT CPT-J3420 Vitamin B12 1000mcg (Cyanocobalamin) 16:09:42 CDT CPT-17435 Abx/Therapy Injection 16:09:42 CDT CPT-J3420 Vitamin B12 1000mcg (Cyanocobalamin) 15:22:47 CDT CPT-41166 Abx/Therapy Injection 15:22:47 CDT CPT-J3420 Vitamin B12 1000mcg (Cyanocobalamin) 17:00:35 CDT CPT-80769 Abx/Therapy Injection 17:00:35 CDT CPT-43822 First Vx - Ix admin via ID I M or jet injects without counseling by physician 16:04:17 FONDANT PUFF MAKER CPT-39652 Gardasil 9 Intramuscular Suspension 1 6:04:17 FONDANT PUFF MAKER CPT-58631 Venipuncture Draw Fee 09:40:26 CDT CPT-26970 [facility] - LAB USE ONLY 09:40:26 CDT 11/30 CPT-33115 CBC with Diff - LAB USE ONLY 09:40:26 CDT 2 CPT-80436 Addl Vx - Ix admin via ID IM or jet injects without counseling by physician 09:40:21 CDT CPT-06323 Menactra Intramuscular Injectable 09:40:21 CDT CPT-69938 Addl Vx - Ix admin via ID IM or jet injects without counseling by physician 09:40:21 CDT CPT-08002 Gardasil 9 Intramuscular Suspension 0 9:40:21 CDT CPT-12013 First Vx - Ix admin via ID I M or jet injects without counseling by physician 09:40:21 CDT CPT-62208 Havrix Intramuscular Suspension 720 EL U /0.5ML 09:40:21 CDT CPT-J2930 Solu Medrol 125 mg (Methyl Prednisolone Sodium Succinate) 09:43:26 CDT CPT-17935 Abx/Therapy Injection 09:43:26 CDT CPT-J2930 Solu Medrol 125 mg (Methyl Prednisolone Sodium Succinate) 09:05:55 CDT CPT-65836 Abx/Therapy Injection 09:05:55 CDT CPT-99396 Venipuncture Draw Fee 14:01:33 CDT CPT-68766 EKG Trac and Interp 11:22:04 CDT CPT-59056 Venipuncture Draw Fee 10:53:35 CDT CPT-J2930 Solu Medrol 125 mg (Methyl Prednisolone Sodium Succinate) 09:29:26 CDT CPT-48112 Abx/Therapy Injection 09:29:26 CDT CPT-Cryo Cryotherapy 16:51:37 FONDANT PUFF MAKER
--- OUTSIDE RECORDS SUMMARY | 2019-07-22 19:30 | XMS REPORT | Clinical Summary ---
Author Author Yovanny, Clarisa Christopher Organization [facility] Address Unknown Phone Unavailable Allergies, Adverse Reactions, Alerts Allergy Name Reaction Description Start Date Severity Status Pr ovider BENZACLIN Critical Active Uriel BOYD Conditions or Problems Problem Name Problem Code Onset Date Status Entry Date Provider Comment Standard Description Annotate ACUTE BRONCHITIS 466.0 Active Ace Joseph Acute bronchitis FAMILY HISTORY OF HYPERTENSION V17.4 Active Adrián Varghese MD Family history of other cardiovascular diseases OTHER SPECIFIED VIRAL WARTS 078.19 Active Adrián Varghese MD Other specified viral warts VIRAL INFECTION 079.99 Active Norman BOYD Unspecified viral infection ACNE, CYSTIC 706.1 Active Adrián Varghese MD Other acne ALLERGIC REACTION 995.3 Active Uriel Moe A Allergy, unspecified, not elsewhere classified PALPITATIONS 785.1 Active Angelita Hardy Palpitations CERVICAL LYMPHADENOPATHY 785.6 Active Terry jenkins DO Enlargement of lymph nodes CHEST DISCOMFORT 786.59 Active Uriel BOYD Other chest pain Pharyngitis-Acute 462 Inactive Adrián samuel MD Acute pharyngitis Headache 784.0 Active Adrián Varghese MD Headache Pharyngitis-Acute 462 Active Adrián Varghese MD Acute pharyngitis Well Child Exam V20.2 Active Adrián Joseph Routine infant or child health check Myalgias 729.1 Active Adrián Varghese MD Myalgia and myositis, unspecified DEPRESSION 311 Active Adrián Varghese MD Depressive disorder, not elsewhere classified B12 deficiency 266.2 Active Samreen Lemons Other B-complex deficiencies Muscle cramps 729.82 Active Shannan Gibbs APRN Cramp of limb Pharyngitis-Acute ICD-462 Inactive Adrián leavitt MD Medication List Medication Instructions Start Date Stop Date Generic Name NDC Status Provider Patient Instruction BUSPIRONE HCL 7.5 MG ORAL TABS 1 pill twice daily, for anxiety 2016 BUSPIRONE HCL 16525006594 Active Shannan Gibbs APRN Active PROZAC 20 MG CAP Take 1 tab daily. FLUOXETINE HCL 45131440919 Active Shannan Gibbs APRN Active PROZAC 10 MG CAP Take 1 tab daily for 1 week. Then increa se to 20mg daily. FLUOXETINE HCL 55326670409 Active Shannan Gibbs APRN Active CITALOPRAM HYDROBROMIDE 20 MG ORAL TABS take 1 tab po qday for depresion and anxiety. CITALOPRAM HYDROBROMIDE 68475271146 No L onger Active Shannan Gibbs APRN Active CYANOCOBALAMIN 1000 MCG/ML INJ SOLN 1 injection weekly for 1 month, than 1 a month for 2 months. recheck lab CYANOCOBALAMIN 73535068096 No Longer Active Shannan Gibbs APRN Active ULTRAM 50 MG TAB 1 TAB PO Q 6 HRS PRN HEADACHE TRAMADOL HCL 63822604940 Active Adrián Varghese MD Active ULTRAM 50 MG TAB take 1 tab po q 6 hrs prn headache pain TRAMADOL HCL 31695096377 No Longer Active Adrián Varghese MD Acti ve CLINDAMYCIN PHOSPHATE 2 % CREA apply cream to acne BID prn 06/14 CLINDAMYCIN PHOSPHATE 63163128872 No Longer Active Adrián Joseph Active MINOCYCLINE HCL 100 MG CAPS take one po BID MINOCYCLINE HCL 00613540073 No Longer Active Adrián Varghese MD Acti ve TRI-SPRINTEC 0.18/0.215/0.25 MG-35 MCG TABS 1 po qd as directed 201 07/04/00 NORGESTIM-ETH ESTRAD TRIPHASIC 81065916720 Active Adrián Varghese MD Active ZITHROMAX 250 MG TAB 2 po today, then 1 po q days 2-5 AZITHROMYCIN 09745338476 No Longer Active Adrián Varghese MD Acti ve ZITHROMAX 250 MG TAB 2 po today, then 1 po q days 2-5 AZITHROMYCIN 02502879370 No Longer Active Adrián Varghese MD Acti ve PREDNISONE 20 MG TAB 2 tabs daily for 3 days, 1 t ab daily for 3 days, 1/2 tab daily for 2 days PREDNISONE 95677108849 No Longer Active Adrián Varghese MD Active ZANTAC 75 75 MG TABS take 1 po BID RANITIDINE H CL 15427100676 No Longer Active Uriel BOYD Active BENZACLIN 1-5 % GEL apply to skin BID prn for acne 201 05/05/14 CLINDAMYCIN PHOS-BENZOYL PEROX 03873018122 No Longer Active Uriel BOYD Active BENZACLIN 1-5 % GEL apply to skin BID prn for acne 201 05/05/14 BENZACLIN 1-5 % GEL 206588 CLINDAMYCIN PHOS-BENZOYL PEROX Inactive MINOCYCLINE HCL 100 MG CAPS take one po BID MINOCYCLINE HCL 100 MG CAPS 346286 MINOCYCLINE HCL Inactive CLINDAMYCIN PHOSPHATE 2 % CREA apply cream to acne BID prn 06/14 CLINDAMYCIN PHOSPHATE 2 % CREA 550081 CLINDAMYCIN PHOSP HATE Inactive ULTRAM 50 MG TAB take 1 tab po q 6 hrs prn headache pain ULTRAM 50 MG TAB 728659 TRAMADOL HCL Inactive CYANOCOBALAMIN 1000 MCG/ML INJ SOLN 1 injection weekly for 1 month, than 1 a month for 2 months. recheck lab CYANOCOB ALAMIN 1000 MCG/ML INJ SOLN 792205 CYANOCOBALAMIN Inactive CITALOPRAM HYDROBROMIDE 20 MG ORAL TABS take 1 tab po qday for depresion and anxiety. CITALOPRAM HYDROBROMIDE 20 MG ORAL TABS 2 41816 CITALOPRAM HYDROBROMIDE Inactive ZANTAC 75 75 MG TABS take 1 po BID ZANTAC 75 75 MG TABS 525169 RANITIDINE HCL Inactive PREDNISONE 20 MG TAB 2 tabs daily for 3 days, 1 t ab daily for 3 days, 1/2 tab daily for 2 days PREDNISONE 20 MG TAB 617669 PREDNISON E Inactive ZITHROMAX 250 MG TAB 2 po today, then 1 po q days 2-5 ZITHROMAX 250 MG TAB 9000725 AZITHROMYCIN Inactive ZITHROMAX 250 MG TAB 2 po today, then 1 po q days 2-5 ZITHROMAX 250 MG TAB 6742694 AZITHROMYCIN Inactive Immunizations Vaccine Administration Date Value Standard Fernando [...] Value Unit Range Description blood pressure, diastolic 60 mm[Hg] BP jones blood pressure, systolic 115 mm[Hg] BP sys pulse rate E&M 77 /min Heart rate temperature E&M 98.9 [degF] Body temp erature weight E&M 147 [lb_av] Weight Measure d blood pressure, diastolic 68 mm[Hg] BP jones blood pressure, systolic 134 mm[Hg] BP sys height E&M 66 [in_us] Bdy height pulse rate E&M 105 /min Heart rate temperature E&M 97.2 [degF] Body temp erature weight E&M 142 [lb_av] Weight Measure d blood pressure, diastolic 68 mm[Hg] BP jones blood pressure, systolic 125 mm[Hg] BP sys height E&M 66 [in_us] Bdy height pulse rate E&M 84 /min Heart rate temperature E&M 98.0 [degF] Body temp erature weight E&M 140 [lb_av] Weight Measure d blood pressure, diastolic 62 mm[Hg] BP jones blood pressure, systolic 114 mm[Hg] BP sys pulse rate E&M 85 /min Heart rate temperature E&M 98.5 [degF] Body temp erature weight E&M 139.3 [lb_av] Weight Measure d Diagnostic Results Date Name Value Unit Range Description Lab Report: CBC W/DIFF, MonoSpot - Hemat ology hemoglobin, blood 12.4 g/dL 12.0-16.0 hematocrit, blood 38.3 % 36.0-46.0 mean corpuscular volume, RBC 84 fL 80-97 mean corpuscular hemoglobin, RBC 27.2 pg 27. 0-31.2 mean corpuscular hemoglobin concentration, RBC 32.5 G/DL % 31.8-35.4 red blood cell distribution width 15.0 % 11 .6-14.8 platelet count 351 10^3/MM^3 10*3/mm3 436-513 3771/10/03 erythrocyte (RBC) count 4.58 10^6/MM^3 10*6/mm3 4.04-5.4 8 lymphocytes as percent of blood leukocytes 34.8 % 20.5-51.1 monocytes as percent of blood leukocytes 5.9 % 1.7-9.3 neutrophils as percent of blood leukocytes 57.2 % 42.2-75.2 leukocyte count, blood 5.9 10^3/MM^3 10*3/mm3 4.6-10.2 Lab Report: Comp. Metabolic Panel - Chem istry sodium, serum 139 mmol/L 382-990 6613/09/06 creatinine, serum 1.16 mg/dL 0.60-1.30 alanine aminotransferase (SGPT), serum 21 U/L 10-55 aspartate aminotransferase (SGOT), serum 14 U/L 15-45 calcium, serum 8.7 mg/dL 8.5-10.1 bilirubin, serum, total 0.20 mg/dL 0.20-1.00 carbon dioxide, venous blood 25.3 mmol/L 21.0-32 .0 potassium, serum 3.8 mmol/L 3.5-5.2 chloride, serum 102 mmol/L 98-107 blood glucose 85 mg/dL 65-110 urea nitrogen, blood 14 mg/dL 7-18 Encounters Code Encounter Date Provider Facility CPT-66219 Level 4 Est. Patient 14:07:40 CDT Shannan Lazcano erin SYLVIA [facility] CPT-74231 Level 4 Est. Patient 13:54:09 CDT Adrián dyson MD [facility] CPT-70276 Level 3 Est. Patient 09:22:14 CDT Adrián dyson MD [facility] CPT-56167 Level 3 Est. Patient 08:59:31 CDT Adrián dyson MD [facility] CPT-57158 Level 3 Est. Patient 11:58:31 CDT Adrián dyson MD [facility] CPT-51753 Level 3 Est. Patient 09:06:35 CDT Adrián dyson MD [facility] CPT-18392 Level 3 Est. Patient 09:18:45 CDT Adrián dyson MD [facility] CPT-16383 Level 3 Est. Patient 09:13:22 CDT Adrián dyson MD [facility] CPT-60871 Level 3 Est. 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 Patient 14:00:53 CDT Uriel BOYD [facility] CPT-92368 Level 3 Est. Patient 20:00:09 CDT Terry jenkins DO [facility] CPT-57134 Level 3 Est. Patient 08:45:08 CDT Uriel Ramirezclarissa bhatia [facility] CPT-78061 Level 3 Est. Patient 09:09:26 CDT Uriel bhatia [facility] CPT-51211 Level 3 Est. Patient 16:32:31 CDT Adrián dyson MD [facility] CPT-35780 Level 3 Est. Patient 09:35:27 COMPUTER NETWORKER Norman fuentes [facility] CPT-94085 Level 2 Est. Patient 16:51:37 COMPUTER NETWORKER Adrián dyson MD [facility] CPT-89494 Level 3 Est. Patient 10:00:11 COMPUTER NETWORKER Ace Arriaza MD [facility] Procedures Code Procedure Name Date Entry Date Standard Desc ription CPT-55792 First Vx - Ix admin via ID I M or jet injects without counseling by physician 14:18:02 CDT CPT-09638 Gardasil 9 Intramuscular Suspension 1 4:18:02 CDT CPT-J3420 Vitamin B12 1000mcg (Cyanocobalamin) 16:30:23 CDT CPT-52705 Abx/Therapy Injection 16:30:23 CDT CPT-J3420 Vitamin B12 1000mcg (Cyanocobalamin) 16:09:42 CDT CPT-38054 Abx/Therapy Injection 16:09:42 CDT CPT-J3420 Vitamin B12 1000mcg (Cyanocobalamin) 15:22:47 CDT CPT-52446 Abx/Therapy Injection 15:22:47 CDT CPT-J3420 Vitamin B12 1000mcg (Cyanocobalamin) 17:00:35 CDT CPT-86517 Abx/Therapy Injection 17:00:35 CDT CPT-51159 First Vx - Ix admin via ID I M or jet injects without counseling by physician 16:04:17 COMPUTER NETWORKER CPT-26373 Gardasil 9 Intramuscular Suspension 1 6:04:17 COMPUTER NETWORKER CPT-62098 Venipuncture Draw Fee 09:40:26 CDT CPT-96482 [place] [facility] - LAB USE ONLY 09:40:26 CDT 11/30 CPT-09020 CBC with Diff - LAB USE ONLY 09:40:26 CDT 2 CPT-69141 Addl Vx - Ix admin via ID IM or jet injects without counseling by physician 09:40:21 CDT CPT-56813 Menactra Intramuscular Injectable 09:40:21 CDT CPT-08748 Addl Vx - Ix admin via ID IM or jet injects without counseling by physician 09:40:21 CDT CPT-56513 Gardasil 9 Intramuscular Suspension 0 9:40:21 CDT CPT-30790 First Vx - Ix admin via ID I M or jet injects without counseling by physician 09:40:21 CDT CPT-53094 Havrix Intramuscular Suspension 720 EL U /0.5ML 09:40:21 CDT CPT-J2930 Solu Medrol 125 mg (Methyl Prednisolone Sodium Succinate) 09:43:26 CDT CPT-33665 Abx/Therapy Injection 09:43:26 CDT CPT-J2930 Solu Medrol 125 mg (Methyl Prednisolone Sodium Succinate) 09:05:55 CDT CPT-02998 Abx/Therapy Injection 09:05:55 CDT CPT-95414 Venipuncture Draw Fee 14:01:33 CDT CPT-92946 EKG Trac and Interp 11:22:04 CDT CPT-06903 Venipuncture Draw Fee 10:53:35 CDT CPT-J2930 Solu Medrol 125 mg (Methyl Prednisolone Sodium Succinate) 09:29:26 CDT CPT-17129 Abx/Therapy Injection 09:29:26 CDT CPT-Cryo Cryotherapy 16:51:37 COMPUTER NETWORKER
--- OUTSIDE RECORDS SUMMARY | 2019-07-22 19:30 | XMS REPORT | Clinical Summary ---
Author Author Yovanny, Clarisa Christopher Organization [facility] Address Unknown Phone Unavailable Allergies, Adverse Reactions, [...] Adrián Varghese MD Myalgia and myositis, unspecified Pharyngitis-Acute ICD-462 Inactive Adrián leavitt MD Medication List Medication Instructions Start Date Stop Date Generic Name NDC Status Provider Patient Instruction CLINDAMYCIN PHOSPHATE 2 % CREA apply cream to acne BID prn 06/14 CLINDAMYCIN PHOSPHATE 18517242327 No Longer Active Adrián Joseph Active MINOCYCLINE HCL 100 MG CAPS take one po BID MINOCYCLINE HCL 92296669375 No Longer Active Adrián Varghese MD Acti ve TRI-SPRINTEC 0.18/0.215/0.25 MG-35 MCG TABS 1 po qd as directed 201 07/04/00 NORGESTIM-ETH ESTRAD TRIPHASIC 11570828961 Active Adrián Varghese MD Active ZITHROMAX 250 MG TAB 2 po today, then 1 po q days 2-5 AZITHROMYCIN 97136348451 No Longer Active Adrián Varghese MD Acti ve ULTRAM 50 MG TAB take 1 tab po q 6 hrs prn headache pain TRAMADOL HCL 55954235012 Active Adrián Varghese MD Active ZITHROMAX 250 MG TAB 2 po today, then 1 po q days 2-5 AZITHROMYCIN 51680853846 No Longer Active Adrián Varghese MD Acti ve PREDNISONE 20 MG TAB 2 tabs daily for 3 days, 1 t ab daily for 3 days, 1/2 tab daily for 2 days PREDNISONE 17700454304 No Longer Active Adrián Varghese MD Active ZANTAC 75 75 MG TABS take 1 po BID RANITIDINE H CL 37225403337 No Longer Active Uriel BOYD Active BENZACLIN 1-5 % GEL apply to skin BID prn for acne 201 05/05/14 CLINDAMYCIN PHOS-BENZOYL PEROX 61915613059 No Longer Active Uriel BOYD Active BENZACLIN 1-5 % GEL apply to skin BID prn for acne 201 05/05/14 BENZACLIN 1-5 % GEL 474454 CLINDAMYCIN PHOS-BENZOYL PEROX Inactive MINOCYCLINE HCL 100 MG CAPS take one po BID MINOCYCLINE HCL 100 MG CAPS 244989 MINOCYCLINE HCL Inactive CLINDAMYCIN PHOSPHATE 2 % CREA apply cream to acne BID prn 06/14 CLINDAMYCIN PHOSPHATE 2 % CREA 292116 CLINDAMYCIN PHOSP HATE Inactive ZANTAC 75 75 MG TABS take 1 po BID ZANTAC 75 75 MG TABS 916879 RANITIDINE HCL Inactive PREDNISONE 20 MG TAB 2 tabs daily for 3 days, 1 t ab daily for 3 days, 1/2 tab daily for 2 days PREDNISONE 20 MG TAB 871420 PREDNISON E Inactive ZITHROMAX 250 MG TAB 2 po today, then 1 po q days 2-5 ZITHROMAX 250 MG TAB 9448123 AZITHROMYCIN Inactive ZITHROMAX 250 MG TAB 2 po today, then 1 po q days 2-5 ZITHROMAX 250 MG TAB 1875711 AZITHROMYCIN Inactive Immunizations Vaccine Administration Date Value [...] Value Unit Range Description blood pressure, diastolic - 8462-4 68 mm[Hg] BP jones blood pressure, systolic - 8480-6 125 mm[Hg] BP sys height E&M - 8302-2 66 [in_us] Bdy h eight pulse rate E&M - 8867-4 84 /min H eart rate temperature E&M 98.0 [degF] Body temp erature weight E&M - 3141-9 140 [lb_av] Weigh t Measured blood pressure, diastolic - 8462-4 62 mm[Hg] BP jones blood pressure, systolic - 8480-6 114 mm[Hg] BP sys pulse rate E&M - 8867-4 85 /min H eart rate temperature E&M 98.5 [degF] Body temp erature weight E&M - 3141-9 139.3 [lb_av] Weigh t Measured Encounters Code Encounter Date Provider Facility CPT-88473 Level 3 Est. Patient 09:22:14 CDT Adrián dyson MD [facility] CPT-86636 Level 3 Est. Patient 08:59:31 CDT Adrián dyson MD [facility] CPT-35789 Level 3 Est. Patient 11:58:31 CDT Adrián dyson MD [facility] CPT-64489 Level 3 Est. Patient 09:06:35 CDT Adrián dyson MD [facility] CPT-90297 Level 3 Est. Patient 09:18:45 CDT Adrián dyson MD [facility] CPT-25964 Level 3 Est. Patient 09:13:22 CDT Adrián dyson MD [facility] CPT-43851 Level 3 Est. Patient 18:04:31 [employer] Adrián dyson MD [facility] CPT-58243 Level 4 Est. Patient 14:00:53 CDT Uriel bhatia [facility] CPT-01893 Level 3 Est. Patient 20:00:09 CDT Terry jenkins DO [facility] CPT-29894 Level 3 Est. Patient 08:45:08 CDT Uriel bhatia [facility] CPT-75419 Level 3 Est. Patient 09:09:26 CDT Uriel Ivy sriram [facility]-04416 Level 3 Est. Patient 16:32:31 CDT Adrián dyson MD [facility] CPT-31077 Level 3 Est. Patient 09:35:27 BLOCK [employer]ACER Norman fuentes [facility] CPT-06383 Level 2 Est. Patient 16:51:37 BLOCK PLACER Adrián dyson MD [facility]-91010 Level 3 Est. Patient 10:00:11 BLOCK PLACER Ace Arriaza MD [facility] Procedures Code Procedure Name Date Entry Date Standard Desc ription CPT-50589 Addl Vx - Ix admin via ID IM or jet injects without counseling by physician 09:40:21 CDT CPT-51400 Menactra Intramuscular Injectable 09:40:21 CDT CPT-85771 Addl Vx - Ix admin via ID IM or jet injects without counseling by physician 09:40:21 CDT CPT-52085 Gardasil 9 Intramuscular Suspension 0 9:40:21 CDT CPT-12906 First Vx - Ix admin via ID I M or jet injects without counseling by physician 09:40:21 CDT CPT-87440 Havrix Intramuscular Suspension 720 EL U /0.5ML 09:40:21 CDT CPT-J2930 Solu Medrol 125 mg (Methyl Prednisolone Sodium Succinate) 09:43:26 CDT CPT-36548 Abx/Therapy Injection 09:43:26 CDT CPT-J2930 Solu Medrol 125 mg (Methyl Prednisolone Sodium Succinate) 09:05:55 CDT CPT-40798 Abx/Therapy Injection 09:05:55 CDT CPT-42135 Venipuncture Draw Fee 14:01:33 CDT CPT-52527 EKG Trac and Interp 11:22:04 CDT CPT-55861 Venipuncture Draw Fee 10:53:35 CDT CPT-J2930 Solu Medrol 125 mg (Methyl Prednisolone Sodium Succinate) 09:29:26 CDT CPT-03199 Abx/Therapy Injection 09:29:26 CDT CPT-Cryo Cryotherapy 16:51:37 BLOCK PLACER
--- OUTSIDE RECORDS SUMMARY | 2019-07-22 19:30 | XMS REPORT | Clinical Summary ---
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 B12 deficiency 266.2 Active Samreen Raida Other B-complex deficiencies Muscle cramps 729.82 Active Shannan Gibbs APRN Cramp of limb Vaginal lesion 623.8 Active Cale Lopez APR N Other specified noninflammatory disorders of vagina Dermatitis, atopic 691.8 Active Cale Lopez APRN Other atopic dermatitis and related conditions Pharyngitis-Acute ICD-462 Inactive Adrián leavitt MD Medication List Medication Instructions Start Date Stop Date Generic Name NDC Status Provider Patient Instruction ACZONE 5 % EXTERNAL GEL apply once daily to face DAPSONE 13364704719 Active Latonia Madclarissa PATELN Active SULFAMETHOXAZOLE-TRIMETHOPRIM 800-160 MG ORAL TABLET T QUINCY 1 TABLET BY MOUTH DAILY DIRECTED SULFAMETHOXAZOLE-TRIMETHOPRIM 4702763231 1 Active Latonia Gonzalez [employer] [address] Active PROZAC 10 MG ORAL CAPSULE Take 1 tab daily for 1 week. Then increase to 20mg daily. FLUOXETINE HCL 42102727765 No Longer Active Yulissa Gibbs APRN Active PROZAC 20 MG ORAL CAPSULE Take 1 tab daily FLUO XETINE HCL 27950541358 Active Shannan Gibbs APRN Active BUSPIRONE HCL 7.5 MG ORAL TABLET 1 pill twice daily, for anxiety 20 14/11/05 BUSPIRONE HCL 25874752898 Active Shannan Gibbs APRN Active CITALOPRAM HYDROBROMIDE 20 MG ORAL TABLET take 1 tab p o qday for depresion and anxiety. CITALOPRAM HYDROBROMIDE 14811331132 No L onger Active Shannan Gibbs APRN Active CYANOCOBALAMIN 1000 MCG/ML INJECTION SOLUTION 1 inject ion weekly for 1 month, than 1 a month for 2 months. recheck lab CYANOCO BALAMIN 48272782400 No Longer Active Shannan Gibbs APRN Active ULTRAM 50 MG ORAL TABLET 1 TAB PO Q 6 HRS PRN HEADACHE TRAMADOL HCL 91511690467 Active Adrián Varghese MD Active ULTRAM 50 MG ORAL TABLET take 1 tab po q 6 hrs prn headache pain TRAMADOL HCL 01168396395 No Longer Active Adrián Varghese MD Active CLINDAMYCIN PHOSPHATE 2 % VAGINAL CREAM apply cream to acne BID prn CLINDAMYCIN PHOSPHATE 12105351475 No Longer Active Adrián dyson MD Active MINOCYCLINE HCL 100 MG ORAL CAPSULE take one po BID 20 13/11/25 MINOCYCLINE HCL 42229590828 No Longer Active Adrián Varghese MD A ctive TRI-SPRINTEC 0.18/0.215/0.25 MG-35 MCG ORAL TABLET 1 po qd a s directed NORGESTIM-ETH ESTRAD TRIPHASIC 36664181696 Active Adrián Varghese MD Active ZITHROMAX 250 MG ORAL TABLET 2 po today, then 1 po q days 2-5 20 12/07/06 AZITHROMYCIN 36744565581 No Longer Active Adrián Varghese MD Active ZITHROMAX 250 MG ORAL TABLET 2 po today, then 1 po q days 2-5 20 11/06/16 AZITHROMYCIN 74607950327 No Longer Active Adrián Varghese MD Active PREDNISONE 20 MG ORAL TABLET 2 tabs daily for 3 days, 1 tab daily for 3 days, 1/2 tab daily for 2 days PREDNISONE 66583750524 No Longer Active Adrián Varghese MD Active ZANTAC 75 75 MG ORAL TABLET take 1 po BID RANIT IDINE HCL 87664473100 No Longer Active Uriel BOYD Active BENZACLIN 1-5 % EXTERNAL GEL apply to skin BID prn for acne 2012 CLINDAMYCIN PHOS-BENZOYL PEROX 84822895490 No Longer Active Uriel BOYD Active BENZACLIN 1-5 % EXTERNAL GEL apply to skin BID prn for acne 2012 BENZACLIN 1-5 % EXTERNAL GEL 373239 CLINDAMYCIN PHOS-BE NZOYL PEROX Inactive MINOCYCLINE HCL 100 MG ORAL CAPSULE take one po BID 13/11/25 MINOCYCLINE HCL 100 MG ORAL CAPSULE 020995 MINOCYCLINE HCL Inac tive CLINDAMYCIN PHOSPHATE 2 % VAGINAL CREAM apply cream to acne BID prn CLINDAMYCIN PHOSPHATE 2 % VAGINAL CREAM 288023 CLINDAMY ANGELIA PHOSPHATE Inactive ULTRAM 50 MG ORAL TABLET take 1 tab po q 6 hrs prn headache pain ULTRAM 50 MG ORAL TABLET 304468 TRAMADOL HCL Inactiv e CYANOCOBALAMIN 1000 MCG/ML INJECTION SOLUTION 1 inject ion weekly for 1 month, than 1 a month for 2 months. recheck lab CYANOCOBALAMIN 1000 MCG/ML INJECTION SOLUTION 758422 CYANOCOBALAMIN Inactive CITALOPRAM HYDROBROMIDE 20 MG ORAL TABLET take 1 tab p o qday for depresion and anxiety. CITALOPRAM HYDROBROMIDE 20 MG ORAL TABLET 095043 CITALOPRAM HYDROBROMIDE Inactive PROZAC 10 MG ORAL CAPSULE Take 1 tab daily for 1 week. Then increase to 20mg daily. PROZAC 10 MG ORAL CAPSULE 188610 FLUOXETINE HCL Inactive ZANTAC 75 75 MG ORAL TABLET take 1 po BID ZANTAC 75 75 MG ORAL TABLET 551508 RANITIDINE HCL Inactive PREDNISONE 20 MG ORAL TABLET 2 tabs daily for 3 days, 1 tab daily for 3 days, 1/2 tab daily for 2 days PREDNISONE 20 MG ORAL T ABLET 523011 PREDNISONE Inactive ZITHROMAX 250 MG ORAL TABLET 2 po today, then 1 po q days 2-5 20 11/06/16 ZITHROMAX 250 MG ORAL TABLET 407701 AZITHROMYCIN [place] ct[facility] ZITHROMAX 250 MG ORAL TABLET 2 po today, then 1 po q days 2-5 12/07/06 ZITHROMAX 250 MG ORAL TABLET 057976 AZITHROMYCIN [place] ctive Immunizations Vaccine Administration Date Value Standard Fernando [...] Value Unit Range Description blood pressure, diastolic 66 mm[Hg] BP jones [...] weight E&M 142 [lb_av] Weight Measure d Diagnostic Results Date Name Value Unit Range Description Lab Report: Chlamydia/GC APTIMA/01137 - Lab chlamydia DNA probe NOT DETECTED NOT DETECTED Lab Report: Chlamydia/GC APTIMA/17471 - Microbiology Neisseria gonorrhoeae DNA probe NOT DETECTED NO T DETECTED Lab Report: Comp. Metabolic Panel - Chem istry sodium, serum 141 mmol/L 996-886 0094/11/22 carbon dioxide, venous blood 25.2 mmol/L 21.0-32 .0 potassium, serum 3.8 mmol/L 3.5-5.2 chloride, serum 104 mmol/L 98-107 blood glucose 95 mg/dL 65-110 urea nitrogen, blood 15 mg/dL 7-18 creatinine, serum 0.79 mg/dL 0.60-1.30 alanine aminotransferase (SGPT), serum 28 U/L 10-55 aspartate aminotransferase (SGOT), serum 17 U/L 15-45 calcium, serum 8.9 mg/dL 8.5-10.1 bilirubin, serum, total 0.30 mg/dL 0.20-1.00 sodium, serum 139 mmol/L 976-058 2488/09/06 carbon dioxide, venous blood 25.3 mmol/L 21.0-32 [...] 5.0-8.5 Encounters Code Encounter Date Provider Facility CPT-71280 Level 3 Est. Patient 10:07:39 [employer] Cale morris [facility]-87429 Level 3 Est. Patient 11:35:37 [employer] Cale morris [facility]-09316 Level 4 Est. Patient 11:10:55 CDT Hubert [facility]-71612 Level 4 Est. Patient 14:07:40 CDT Hubert [facility]-96930 Level 4 Est. Patient 13:54:09 CDT Adrián dyson MD [facility]-33777 Level 3 Est. Patient 09:22:14 CDT Adrián dyson MD [facility]-84843 Level 3 Est. Patient 08:59:31 CDT Adrián dyson MD [facility]-99037 Level 3 Est. Patient 11:58:31 CDT Adrián dyson MD [facility] CPT-46731 Level 3 Est. Patient 09:06:35 CDT Adrián dyson MD [facility] CPT-31985 Level 3 Est. Patient 09:18:45 CDT Adrián dyson MD [facility] CPT-68438 Level 3 Est. Patient 09:13:22 CDT Adrián dyson MD [facility] CPT-81631 Level 3 Est. Patient 18:04:31 [employer] Adrián dyson MD [facility] CPT-28360 Level 4 Est. Patient 14:00:53 CDT Uriel bhatia [facility] CPT-25100 Level 3 Est. Patient 20:00:09 CDT Terry jenkins DO [facility] CPT-95003 Level 3 Est. Patient 08:45:08 CDT Uriel bhatia [facility] CPT-24958 Level 3 Est. Patient 09:09:26 CDT Uriel Ivy sriram [facility] CPT-79891 Level 3 Est. Patient 16:32:31 CDT Adrián dyson MD [facility] CPT-20266 Level 3 Est. Patient 09:35:27 [employer] Norman fuentes [facility] CPT-39028 Level 2 Est. Patient 16:51:37 [employer] Adrián dyson MD [facility] CPT-46046 Level 3 Est. Patient 10:00:11 [employer] Ace Arriaza MD [facility] Procedures Code Procedure Name Date Entry Date Standard Desc ription CPT-64318 First Vx - Ix admin via ID I M or jet injects without counseling by physician 14:18:02 CDT CPT-25639 Gardasil 9 Intramuscular Suspension 1 4:18:02 CDT CPT-J3420 Vitamin B12 1000mcg (Cyanocobalamin) 16:30:23 CDT CPT-74200 Abx/Therapy Injection 16:30:23 CDT CPT-J3420 Vitamin B12 1000mcg (Cyanocobalamin) 16:09:42 CDT CPT-04466 Abx/Therapy Injection 16:09:42 CDT CPT-J3420 Vitamin B12 1000mcg (Cyanocobalamin) 15:22:47 CDT CPT-39023 Abx/Therapy Injection 15:22:47 CDT CPT-J3420 Vitamin B12 1000mcg (Cyanocobalamin) 17:00:35 CDT CPT-13088 Abx/Therapy Injection 17:00:35 CDT CPT-94137 First Vx - Ix admin via ID I M or jet injects without counseling by physician 16:04:17 [employer] CPT-93215 Gardasil 9 Intramuscular Suspension 1 6:04:17 [employer] CPT-83280 Venipuncture Draw Fee 09:40:26 CDT CPT-74549 [place] [facility] - LAB USE ONLY 09:40:26 CDT 11/30 CPT-67770 CBC with Diff - LAB USE ONLY 09:40:26 CDT 2 CPT-31133 Addl Vx - Ix admin via ID IM or jet injects without counseling by physician 09:40:21 CDT CPT-03246 Menactra Intramuscular Injectable 09:40:21 CDT CPT-83033 Addl Vx - Ix admin via ID IM or jet injects without counseling by physician 09:40:21 CDT CPT-43402 Gardasil 9 Intramuscular Suspension 0 9:40:21 CDT CPT-61056 First Vx - Ix admin via ID I M or jet injects without counseling by physician 09:40:21 CDT CPT-80447 Havrix Intramuscular Suspension 720 EL U /0.5ML 09:40:21 CDT CPT-J2930 Solu Medrol 125 mg (Methyl Prednisolone Sodium Succinate) 09:43:26 CDT CPT-32324 Abx/Therapy Injection 09:43:26 CDT CPT-J2930 Solu Medrol 125 mg (Methyl Prednisolone Sodium Succinate) 09:05:55 CDT CPT-01695 Abx/Therapy Injection 09:05:55 CDT CPT-53872 Venipuncture Draw Fee 14:01:33 CDT CPT-93643 EKG Trac and Interp 11:22:04 CDT CPT-21778 Venipuncture Draw Fee 10:53:35 CDT CPT-J2930 Solu Medrol 125 mg (Methyl Prednisolone Sodium Succinate) 09:29:26 CDT CPT-40206 Abx/Therapy Injection 09:29:26 CDT CPT-Cryo Cryotherapy 16:51:37 [employer]
--- OUTSIDE RECORDS SUMMARY | 2019-07-22 19:30 | XMS REPORT | Clinical Summary ---
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 Other atopic dermatitis and related conditions Contraceptive management V25.09 Active Madelin arguelles MD Encounter for other general counseling and advice on contraceptive management Std screening V74.5 Active Madelin Hatch MD Screening examination for venereal disease Pharyngitis-Acute ICD-462 Inactive Adrián leavitt MD Medication List Medication Instructions Start Date Stop Date Generic Name NDC Status Provider Patient Instruction SULFAMETHOXAZOLE-TRIMETHOPRIM 800-160 MG ORAL TABLET T QUINCY 1 TABLET BY MOUTH DAILY DIRECTED SULFAMETHOXAZOLE-TRIMETHOPRIM 35525847237 No Longer Active Madelin Hatch MD Active BUSPIRONE HCL 7.5 MG ORAL TABLET PRN BUSPIR ONE HCL 68041144872 Active Madelin Hatch MD Active PROZAC 20 MG ORAL CAPSULE PRN FLUOXETINE HCL 0077 3814249 Active Madelin Hatch MD Active ABSORICA 20 MG ORAL CAPSULE 1 tablet daily ISOT RETINOIN 22750387556 Active Madelin Hacth MD Active ACZONE 5 % EXTERNAL GEL apply once daily to face 5 DAPSONE 87952315632 No Longer Active Madelin Hatch MD Active PROZAC 10 MG ORAL CAPSULE Take 1 tab daily for 1 week. Then increase to 20mg daily. FLUOXETINE HCL 84830197471 No Longer Active Yulissa ortega Cristina STRICKLANDN Active CITALOPRAM HYDROBROMIDE 20 MG ORAL TABLET take 1 tab p o qday for depresion and anxiety. CITALOPRAM HYDROBROMIDE 01118143473 No L onger Active Shannan Evans APRN Active CYANOCOBALAMIN 1000 MCG/ML INJECTION SOLUTION 1 inject ion weekly for 1 month, than 1 a month for 2 months. recheck lab CYANOCO BALAMIN 33251755068 No Longer Active Shannan Evans APRN Active ULTRAM 50 MG ORAL TABLET 1 TAB PO Q 6 HRS PRN HEADACHE TRAMADOL HCL 77738036249 Active Adrián Varghese MD Active ULTRAM 50 MG ORAL TABLET take 1 tab po q 6 hrs prn headache pain TRAMADOL HCL 14771479301 No Longer Active Adrián Varghese MD Active CLINDAMYCIN PHOSPHATE 2 % VAGINAL CREAM apply cream to acne BID prn CLINDAMYCIN PHOSPHATE 00891084693 No Longer Active Adrián dyson MD Active MINOCYCLINE HCL 100 MG ORAL CAPSULE take one po BID 13/11/25 MINOCYCLINE HCL 21297881531 No Longer Active Adrián Varghese MD A ctive TRI-SPRINTEC 0.18/0.215/0.25 MG-35 MCG ORAL TABLET 1 po qd a s directed NORGESTIM-ETH ESTRAD TRIPHASIC 40889754615 Active Madelin Hatch MD Active ZITHROMAX 250 MG ORAL TABLET 2 po today, then 1 po q days 2-5 20 12/07/06 AZITHROMYCIN 28507748534 No Longer Active Adrián Varghese MD Active ZITHROMAX 250 MG ORAL TABLET 2 po today, then 1 po q days 2-5 20 11/06/16 AZITHROMYCIN 38920483704 No Longer Active Adrián Varghese MD Active PREDNISONE 20 MG ORAL TABLET 2 tabs daily for 3 days, 1 tab daily for 3 days, 1/2 tab daily for 2 days PREDNISONE 05844299308 No Longer Active Adrián Varghese MD Active ZANTAC 75 75 MG ORAL TABLET take 1 po BID RANIT IDINE HCL 15145021757 No Longer Active Uriel BOYD Active BENZACLIN 1-5 % EXTERNAL GEL apply to skin BID prn for acne 2012 CLINDAMYCIN PHOS-BENZOYL PEROX 20394368792 No Longer Active Uriel BOYD Active BENZACLIN 1-5 % EXTERNAL GEL apply to skin BID prn for acne 2012 BENZACLIN 1-5 % EXTERNAL GEL 927968 CLINDAMYCIN PHOS-BE NZOYL PEROX Inactive MINOCYCLINE HCL 100 MG ORAL CAPSULE take one po BID 13/11/25 MINOCYCLINE HCL 100 MG ORAL CAPSULE 613270 MINOCYCLINE HCL Inac tive CLINDAMYCIN PHOSPHATE 2 % VAGINAL CREAM apply cream to acne BID prn CLINDAMYCIN PHOSPHATE 2 % VAGINAL CREAM 607756 CLINDAMY ANGELIA PHOSPHATE Inactive ULTRAM 50 MG ORAL TABLET take 1 tab po q 6 hrs prn headache pain ULTRAM 50 MG ORAL TABLET 188599 TRAMADOL HCL Inactiv e CYANOCOBALAMIN 1000 MCG/ML INJECTION SOLUTION 1 inject ion weekly for 1 month, than 1 a month for 2 months. recheck lab CYANOCOBALAMIN 1000 MCG/ML INJECTION SOLUTION 056845 CYANOCOBALAMIN Inactive CITALOPRAM HYDROBROMIDE 20 MG ORAL TABLET take 1 tab p o qday for depresion and anxiety. CITALOPRAM HYDROBROMIDE 20 MG ORAL TABLET 267410 CITALOPRAM HYDROBROMIDE Inactive PROZAC 10 MG ORAL CAPSULE Take 1 tab daily for 1 week. Then increase to 20mg daily. PROZAC 10 MG ORAL CAPSULE 685999 FLUOXETINE HCL Inactive ACZONE 5 % EXTERNAL GEL apply once daily to face 07/22 ACZONE 5 % EXTERNAL GEL 517190 DAPSONE Inactive SULFAMETHOXAZOLE-TRIMETHOPRIM 800-160 MG ORAL TABLET T QUINCY 1 TABLET BY MOUTH DAILY DIRECTED SULFAMETHOXAZOLE-TRI METHOPRIM 800-160 MG ORAL TABLET 294727 SULFAMETHOXAZOLE-TRIMETHOPRIM Inactive ZANTAC 75 75 MG ORAL TABLET take 1 po BID ZANTAC 75 75 MG ORAL TABLET 985371 RANITIDINE HCL Inactive PREDNISONE 20 MG ORAL TABLET 2 tabs daily for 3 days, 1 tab daily for 3 days, 1/2 tab daily for 2 days PREDNISONE 20 MG ORAL T ABLET 036224 PREDNISONE Inactive ZITHROMAX 250 MG ORAL TABLET 2 po today, then 1 po q days 2-5 20 11/06/16 ZITHROMAX 250 MG ORAL TABLET 335689 AZITHROMYCIN [place] ctive ZITHROMAX 250 MG ORAL TABLET 2 po today, then 1 po q days 2-5 20 12/07/06 ZITHROMAX 250 MG ORAL TABLET 384513 AZITHROMYCIN [place] ctive Immunizations Vaccine Administration Date [...] Value Unit Range Description Lab Report: Chlamydia/GC APTIMA/60433 - Lab chlamydia DNA probe NOT DETECTED NOT DETECTED chlamydia DNA probe NOT DETECTED NOT DETECTED Lab Report: Chlamydia/GC APTIMA/74285 - Microbiology Neisseria gonorrhoeae DNA probe NOT DETECTED NO T DETECTED Neisseria gonorrhoeae DNA probe NOT DETECTED NO T DETECTED Lab Report: Comp. Metabolic Panel - Chem istry sodium, serum 141 mmol/L 137-245 9529/11/22 carbon dioxide, venous blood 25.2 mmol/L 21.0-32 .0 potassium, serum 3.8 mmol/L 3.5-5.2 chloride, serum 104 mmol/L 98-107 blood glucose 95 mg/dL 65-110 urea nitrogen, blood 15 mg/dL 7-18 creatinine, serum 0.79 mg/dL 0.60-1.30 alanine aminotransferase (SGPT), serum 28 U/L 10-55 aspartate aminotransferase (SGOT), serum 17 U/L 15-45 calcium, serum 8.9 mg/dL 8.5-10.1 bilirubin, serum, total 0.30 mg/dL 0.20-1.00 sodium, serum 139 mmol/L 886-827 3360/09/06 carbon dioxide, venous blood 25.3 mmol/L 21.0-32 [...] 5.0-8.5 Encounters Code Encounter Date Provider Facility CPT-66497 Level 3 New Patient 12:59:59 CDT Madelin almodovar MD [facility] CPT-90628 Level 3 Est. 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 Patient 11:35:37 TIE FASTENER Cale morris [facility] CPT-54454 Level 4 Est. Patient 11:10:55 CDT Shannan Are [facility] CPT-08407 Level 4 Est. Patient 14:07:40 CDT Shannan Are ll [facility] CPT-78057 Level 4 Est. Patient 13:54:09 CDT Adrián dyson MD [facility]-51753 Level 3 Est. Patient 09:22:14 CDT Adrián dyson MD [facility]-69121 Level 3 Est. Patient 08:59:31 CDT Adrián dyson MD [facility]-32599 Level 3 Est. Patient 11:58:31 CDT Adrián dyson MD [facility]-18514 Level 3 Est. Patient 09:06:35 CDT Adrián dyson MD [facility]-83970 Level 3 Est. Patient 09:18:45 CDT Adrián dyson MD [facility] CPT-96523 Level 3 Est. Patient 09:13:22 CDT Adrián dyson MD [facility]-33969 Level 3 Est. Patient 18:04:31 TIE FASTENER Adrián dyson MD [facility] CPT-71917 Level 4 Est. Patient 14:00:53 CDT Uriel bhatia [facility] CPT-40270 Level 3 Est. Patient 20:00:09 CDT Terry jenkins DO [facility] CPT-22585 Level 3 Est. Patient 08:45:08 CDT Uriel bhatia [facility]-78309 Level 3 Est. Patient 09:09:26 CDT Uriel bhatia [facility] CPT-37024 Level 3 Est. Patient 16:32:31 CDT Adrián dyson MD [facility]-73107 Level 3 Est. Patient 09:35:27 TIE FASTENER Norman BOYD [facility] CPT-84742 Level 2 Est. Patient 16:51:37 TIE FASTENER Adrián dsyon MD [facility] CPT-08198 Level 3 Est. Patient 10:00:11 TIE FASTENER Ace Arriaza MD [facility] Procedures Code Procedure Name Date Entry Date Standard Desc ription CPT-43590 Addl Vx - Ix admin via ID IM or jet injects without counseling by physician 15:35:10 CDT CPT-67474 Meningococcal B, recombinant vaccine 15:35:10 CDT CPT-41872 First Vx - Ix admin via ID I M or jet injects without counseling by physician 15:35:10 CDT CPT-01775 Havrix Intramuscular Suspension 720 EL U /0.5ML 15:35:10 CDT CPT-90349 First Vx - Ix admin via ID I M or jet injects without counseling by physician 14:18:02 CDT CPT-19505 Gardasil 9 Intramuscular Suspension 1 4:18:02 CDT CPT-J3420 Vitamin B12 1000mcg (Cyanocobalamin) 16:30:23 CDT CPT-53741 Abx/Therapy Injection 16:30:23 CDT CPT-J3420 Vitamin B12 1000mcg (Cyanocobalamin) 16:09:42 CDT CPT-85297 Abx/Therapy Injection 16:09:42 CDT CPT-J3420 Vitamin B12 1000mcg (Cyanocobalamin) 15:22:47 CDT CPT-66448 Abx/Therapy Injection 15:22:47 CDT CPT-J3420 Vitamin B12 1000mcg (Cyanocobalamin) 17:00:35 CDT CPT-85189 Abx/Therapy Injection 17:00:35 CDT CPT-93158 First Vx - Ix admin via ID I M or jet injects without counseling by physician 16:04:17 TIE FASTENER CPT-92925 Gardasil 9 Intramuscular Suspension 1 6:04:17 TIE FASTENER CPT-28812 Venipuncture Draw Fee 09:40:26 CDT CPT-07931 [facility] - LAB USE ONLY 09:40:26 CDT 11/30 CPT-34889 CBC with Diff - LAB USE ONLY 09:40:26 CDT 2 CPT-94075 Addl Vx - Ix admin via ID IM or jet injects without counseling by physician 09:40:21 CDT CPT-81634 Menactra Intramuscular Injectable 09:40:21 CDT CPT-56585 Addl Vx - Ix admin via ID IM or jet injects without counseling by physician 09:40:21 CDT CPT-31076 Gardasil 9 Intramuscular Suspension 0 9:40:21 CDT CPT-59587 First Vx - Ix admin via ID I M or jet injects without counseling by physician 09:40:21 CDT CPT-86561 Havrix Intramuscular Suspension 720 EL U /0.5ML 09:40:21 CDT CPT-J2930 Solu Medrol 125 mg (Methyl Prednisolone Sodium Succinate) 09:43:26 CDT CPT-71067 Abx/Therapy Injection 09:43:26 CDT CPT-J2930 Solu Medrol 125 mg (Methyl Prednisolone Sodium Succinate) 09:05:55 CDT CPT-65811 Abx/Therapy Injection 09:05:55 CDT CPT-92031 Venipuncture Draw Fee 14:01:33 CDT CPT-74254 EKG Trac and Interp 11:22:04 CDT CPT-87277 Venipuncture Draw Fee 10:53:35 CDT CPT-J2930 Solu Medrol 125 mg (Methyl Prednisolone Sodium Succinate) 09:29:26 CDT CPT-14964 Abx/Therapy Injection 09:29:26 CDT CPT-Cryo Cryotherapy 16:51:37 TIE FASTENER
--- OUTSIDE RECORDS SUMMARY | 2019-07-22 19:30 | XMS REPORT | Clinical Summary ---
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 Other atopic dermatitis and related conditions Contraceptive [...] take 1 tab for mood ESCITALOPRAM OXALATE 49027682786 Active Adrián Varghese MD Active SULFAMETHOXAZOLE-TRIMETHOPRIM 800-160 MG ORAL TABLET T QUINCY 1 TABLET BY MOUTH DAILY DIRECTED SULFAMETHOXAZOLE-TRIMETHOPRIM 54282882228 No Longer Active Madelin Hatch MD Active BUSPIRONE HCL 7.5 MG ORAL TABLET PRN BUSPIR ONE HCL 03804987484 Active Madelin Hatch MD Active PROZAC 20 MG ORAL CAPSULE PRN FLUOXETINE HCL 0077 2664324 Active Madelin Hatch MD Active ABSORICA 20 MG ORAL CAPSULE 1 tablet daily ISOT RETINOIN 06849507101 Active Madelin aHtch MD Active ACZONE 5 % EXTERNAL GEL apply once daily to face 5 DAPSONE 90961853142 No Longer Active Madelin Hatch MD Active PROZAC 10 MG ORAL CAPSULE Take 1 tab daily for 1 week. Then increase to 20mg daily. FLUOXETINE HCL 78568595399 No Longer Active Yulissa Cookkatie WARD Active CITALOPRAM HYDROBROMIDE 20 MG ORAL TABLET take 1 tab p o qday for depresion and anxiety. CITALOPRAM HYDROBROMIDE 93866857974 No L onger Active Shannan Evans APRN Active CYANOCOBALAMIN 1000 MCG/ML INJECTION SOLUTION 1 inject ion weekly for 1 month, than 1 a month for 2 months. recheck lab CYANOCO BALAMIN 06644447018 No Longer Active Shannan Evans APRN Active ULTRAM 50 MG ORAL TABLET 1 TAB PO Q 6 HRS PRN HEADACHE TRAMADOL HCL 99388025708 Active Adrián Varghese MD Active ULTRAM 50 MG ORAL TABLET take 1 tab po q 6 hrs prn headache pain TRAMADOL HCL 73291730418 No Longer Active Adrián Varghese MD Active CLINDAMYCIN PHOSPHATE 2 % VAGINAL CREAM apply cream to acne BID prn CLINDAMYCIN PHOSPHATE 92108037185 No Longer Active Adrián dyson MD Active MINOCYCLINE HCL 100 MG ORAL CAPSULE take one po BID 13/11/25 MINOCYCLINE HCL 67526817700 No Longer Active Adrián Varghese MD A ctive TRI-SPRINTEC 0.18/0.215/0.25 MG-35 MCG ORAL TABLET 1 po qd a s directed NORGESTIM-ETH ESTRAD TRIPHASIC 38602888813 Active Madelin Hatch MD Active ZITHROMAX 250 MG ORAL TABLET 2 po today, then 1 po q days 2-5 20 12/07/06 AZITHROMYCIN 77128208406 No Longer Active Adrián Varghese MD Active ZITHROMAX 250 MG ORAL TABLET 2 po today, then 1 po q days 2-5 20 11/06/16 AZITHROMYCIN 22789559456 No Longer Active Adrián Varghese MD Active PREDNISONE 20 MG ORAL TABLET 2 tabs daily for 3 days, 1 tab daily for 3 days, 1/2 tab daily for 2 days PREDNISONE 43371939421 No Longer Active Adrián Varghese MD Active ZANTAC 75 75 MG ORAL TABLET take 1 po BID RANIT IDINE HCL 21198520496 No Longer Active Uriel BOYD Active BENZACLIN 1-5 % EXTERNAL GEL apply to skin BID prn for acne 2012 CLINDAMYCIN PHOS-BENZOYL PEROX 49144390471 No Longer Active Uriel BOYD Active CYANOCOBALAMIN 1000 MCG/ML INJECTION SOLUTION 1 inject ion weekly for 1 month, than 1 a month for 2 months. recheck lab CYANOCOBALAMIN 1000 MCG/ML INJECTION SOLUTION 863369 CYANOCOBALAMIN Inactive MINOCYCLINE HCL 100 MG ORAL CAPSULE take one po BID 13/11/25 MINOCYCLINE HCL 100 MG ORAL CAPSULE 833656 MINOCYCLINE HCL Inac tive PREDNISONE 20 MG ORAL TABLET 2 tabs daily for 3 days, 1 tab daily for 3 days, 1/2 tab daily for 2 days PREDNISONE 20 MG ORAL T ABLET 283704 PREDNISONE Inactive PROZAC 10 MG ORAL CAPSULE Take 1 tab daily for 1 week. Then increase to 20mg daily. PROZAC 10 MG ORAL CAPSULE 124815 FLUOXETINE HCL Inactive CLINDAMYCIN PHOSPHATE 2 % VAGINAL CREAM apply cream to acne BID prn CLINDAMYCIN PHOSPHATE 2 % VAGINAL CREAM 397191 CLINDAMY ANGELIA PHOSPHATE Inactive SULFAMETHOXAZOLE-TRIMETHOPRIM 800-160 MG ORAL TABLET T QUINCY 1 TABLET BY MOUTH DAILY DIRECTED SULFAMETHOXAZOLE-TRI METHOPRIM 800-160 MG ORAL TABLET 127058 SULFAMETHOXAZOLE-TRIMETHOPRIM Inactive ULTRAM 50 MG ORAL TABLET take 1 tab po q 6 hrs prn headache pain ULTRAM 50 MG ORAL TABLET 169700 TRAMADOL HCL Inactiv e ZANTAC 75 75 MG ORAL TABLET take 1 po BID ZANTAC 75 75 MG ORAL TABLET 706270 RANITIDINE HCL Inactive ZITHROMAX 250 MG ORAL TABLET 2 po today, then 1 po q days 2-5 20 11/06/16 ZITHROMAX 250 MG ORAL TABLET 045907 AZITHROMYCIN [place] ctive ZITHROMAX 250 MG ORAL TABLET 2 po today, then 1 po q days 2-5 20 12/07/06 ZITHROMAX 250 MG ORAL TABLET 946573 AZITHROMYCIN [place] ctive CITALOPRAM HYDROBROMIDE 20 MG ORAL TABLET take 1 tab p o qday for depresion and anxiety. CITALOPRAM HYDROBROMIDE 20 MG ORAL TABLET 747108 CITALOPRAM HYDROBROMIDE Inactive BENZACLIN 1-5 % EXTERNAL GEL apply to skin BID prn for acne 2012 BENZACLIN 1-5 % EXTERNAL GEL 490899 CLINDAMYCIN PHOS-BE NZOYL PEROX Inactive ACZONE 5 % EXTERNAL GEL apply once daily to face 07/22 ACZONE 5 % EXTERNAL GEL 848782 DAPSONE Inactive Advance Directives Directive Description Start [...] Value Unit Range Description Lab Report: Chlamydia/GC APTIMA/55481 - Lab chlamydia DNA probe NOT DETECTED NOT DETECTED chlamydia DNA probe NOT DETECTED NOT DETECTED Lab Report: Chlamydia/GC APTIMA/23064 - Microbiology Neisseria gonorrhoeae DNA probe NOT DETECTED NO T DETECTED Neisseria gonorrhoeae DNA probe NOT DETECTED NO T DETECTED Lab Report: Comp. Metabolic Panel - Chem istry blood glucose 95 mg/dL 65-110 urea nitrogen, blood 15 mg/dL 7-18 creatinine, serum 0.79 mg/dL 0.60-1.30 alanine aminotransferase (SGPT), serum 28 U/L 10-55 aspartate aminotransferase (SGOT), serum 17 U/L 15-45 calcium, serum 8.9 mg/dL 8.5-10.1 bilirubin, serum, total 0.30 mg/dL 0.20-1.00 sodium, serum 141 mmol/L 014-632 6908/11/22 carbon dioxide, venous blood 25.2 mmol/L 21.0-32 .0 potassium, serum 3.8 mmol/L 3.5-5.2 chloride, serum 104 mmol/L 98-107 urea nitrogen, blood 14 mg/dL 7-18 creatinine, [...] Negative nitrite, urine, semiquantitative Negative Neg ative urine color Yellow Colorless;Lightyellow;St raw;Yellow appearance, urine Clear Clear specific gravity, urine 1.015 1.000-1.030 pH, urine, semiquantitative 7.0 5.0-8.5 glucose, urine, semiquantitative Negative Neg ative ketones, urine, by test strip Negative Negati ve bilirubin, urine Negative Negative Encounters Code Encounter Date Provider Facility CPT-33029 Level 4 Est. Patient 09:07:11 CDT Adrián dyson MD [facility] CPT-49570 Level 3 New Patient 12:59:59 CDT Madelin almodovar MD [facility] CPT-40540 Level 3 Est. 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 Patient 11:10:55 CDT Shannan Are ll [facility] CPT-51129 Level 4 Est. Patient 14:07:40 CDT Shannan Are ll [facility]-54134 Level 4 Est. Patient 13:54:09 CDT Adrián dyson MD [facility]-14661 Level 3 Est. Patient 09:22:14 CDT Adrián dyson MD [facility]-60170 Level 3 Est. Patient 08:59:31 CDT Adrián dyson MD [facility]-51494 Level 3 Est. Patient 11:58:31 CDT Adrián dyson MD [facility]-37488 Level 3 Est. Patient 09:06:35 CDT Adrián dyson MD [facility]-89860 Level 3 Est. Patient 09:18:45 CDT Adrián dyson MD [facility] CPT-26016 Level 3 Est. Patient 09:13:22 CDT Adrián dyson MD [facility]-11760 Level 3 Est. Patient 18:04:31 SHEET ROCK FINISHER Adrián dyson MD [facility] CPT-28671 Level 4 Est. Patient 14:00:53 CDT Uriel bhatia [facility] CPT-98530 Level 3 Est. Patient 20:00:09 CDT Terry jenkins DO [facility]-55155 Level 3 Est. Patient 08:45:08 CDT Uriel bhatia [facility]-51414 Level 3 Est. Patient 09:09:26 CDT Uriel bhatia [facility]-59824 Level 3 Est. Patient 16:32:31 CDT Adrián dyson MD [facility] CPT-84884 Level 3 Est. 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 Patient 16:51:37 SHEET ROCK FINISHER Adrián dyson MD [facility] CPT-53909 Level 3 Est. Patient 10:00:11 SHEET ROCK FINISHER Ace Arriaza MD [facility] Procedures Code Procedure Name Date Entry Date Standard Desc ription CPT-18486 First Vx - Ix admin via ID I M or jet injects without counseling by physician 09:15:14 CDT CPT-75862 Meningococcal B, recombinant vaccine 09:15:14 CDT CPT-41962 Addl Vx - Ix admin via ID IM or jet injects without counseling by physician 15:35:10 CDT CPT-01180 Meningococcal B, recombinant vaccine 15:35:10 CDT CPT-31073 First Vx - Ix admin via ID I M or jet injects without counseling by physician 15:35:10 CDT CPT-45756 Havrix Intramuscular Suspension 720 EL U /0.5ML 15:35:10 CDT CPT-86370 First Vx - Ix admin via ID I M or jet injects without counseling by physician 14:18:02 CDT CPT-19720 Gardasil 9 Intramuscular Suspension 1 4:18:02 CDT CPT-J3420 Vitamin B12 1000mcg (Cyanocobalamin) 16:30:23 CDT CPT-93742 Abx/Therapy Injection 16:30:23 CDT CPT-J3420 Vitamin B12 1000mcg (Cyanocobalamin) 16:09:42 CDT CPT-05035 Abx/Therapy Injection 16:09:42 CDT CPT-J3420 Vitamin B12 1000mcg (Cyanocobalamin) 15:22:47 CDT CPT-02704 Abx/Therapy Injection 15:22:47 CDT CPT-J3420 Vitamin B12 1000mcg (Cyanocobalamin) 17:00:35 CDT CPT-26819 Abx/Therapy Injection 17:00:35 CDT CPT-26119 First Vx - Ix admin via ID I M or jet injects without counseling by physician 16:04:17 SHEET ROCK FINISHER CPT-87354 Gardasil 9 Intramuscular Suspension 1 6:04:17 SHEET ROCK FINISHER CPT-28021 Venipuncture Draw Fee 09:40:26 CDT CPT-92648 [place] [facility] - LAB USE ONLY 09:40:26 CDT 11/30 CPT-50706 CBC with Diff - LAB USE ONLY 09:40:26 CDT 2 CPT-98793 Addl Vx - Ix admin via ID IM or jet injects without counseling by physician 09:40:21 CDT CPT-25996 Menactra Intramuscular Injectable 09:40:21 CDT CPT-80820 Addl Vx - Ix admin via ID IM or jet injects without counseling by physician 09:40:21 CDT CPT-04614 Gardasil 9 Intramuscular Suspension 0 9:40:21 CDT CPT-66296 First Vx - Ix admin via ID I M or jet injects without counseling by physician 09:40:21 CDT CPT-12784 Havrix Intramuscular Suspension 720 EL U /0.5ML 09:40:21 CDT CPT-J2930 Solu Medrol 125 mg (Methyl Prednisolone Sodium Succinate) 09:43:26 CDT CPT-70778 Abx/Therapy Injection 09:43:26 CDT CPT-J2930 Solu Medrol 125 mg (Methyl Prednisolone Sodium Succinate) 09:05:55 CDT CPT-86032 Abx/Therapy Injection 09:05:55 CDT CPT-62966 Venipuncture Draw Fee 14:01:33 CDT CPT-71030 EKG Trac and Interp 11:22:04 CDT CPT-37932 Venipuncture Draw Fee 10:53:35 CDT CPT-J2930 Solu Medrol 125 mg (Methyl Prednisolone Sodium Succinate) 09:29:26 CDT CPT-89279 Abx/Therapy Injection 09:29:26 CDT CPT-Cryo Cryotherapy 16:51:37 SHEET ROCK FINISHER
--- OUTSIDE RECORDS SUMMARY | 2019-07-22 19:31 | XMS REPORT | Clinical Summary ---
Author Author Yovanny, Clarisa Christopher Organization [facility] Address Unknown Phone Unavailable Allergies, Adverse Reactions, Alerts Allergy Name Reaction Description Start Date Severity Status Pr ovider BENZACLIN Critical Active Uriel BOYD Conditions or Problems Problem Name Problem Code Onset Date Status Entry Date Provider Comment Standard Description Annotate ACUTE BRONCHITIS 466.0 Active Ace Jospeh Acute bronchitis FAMILY HISTORY OF HYPERTENSION V17.4 [...] Generic Name NDC Status Provider Patient Instruction PROZAC 10 MG CAP Take 1 tab daily for 1 week. Then increa se to 20mg daily. FLUOXETINE HCL 27745115319 No Longer Active Hubert WARD Active PROZAC 20 MG CAP Take 1 tab daily FLUOXETINE HCL 51739614541 Active Shannan Gibbs APRN Active BUSPIRONE HCL 7.5 MG ORAL TABS 1 pill twice daily, for anxiety 2016 BUSPIRONE HCL 34917632430 Active Shannan Gibbs APRN Active CITALOPRAM HYDROBROMIDE 20 MG ORAL TABS take 1 tab po qday for depresion and anxiety. CITALOPRAM HYDROBROMIDE 06584894588 No L onger Active Shannan Gibbs APRN Active CYANOCOBALAMIN 1000 MCG/ML INJ SOLN 1 injection weekly for 1 month, than 1 a month for 2 months. recheck lab CYANOCOBALAMIN 78074963589 No Longer Active Shannan Gibbs APRN Active ULTRAM 50 MG TAB 1 TAB PO Q 6 HRS PRN HEADACHE TRAMADOL HCL 13949902098 Active Adrián Varghese MD Active ULTRAM 50 MG TAB take 1 tab po q 6 hrs prn headache pain TRAMADOL HCL 88167147851 No Longer Active Adrián Varghese MD Acti ve CLINDAMYCIN PHOSPHATE 2 % CREA apply cream to acne BID prn 06/14 CLINDAMYCIN PHOSPHATE 33224734408 No Longer Active Adrián Joseph Active MINOCYCLINE HCL 100 MG CAPS take one po BID MINOCYCLINE HCL 50757343699 No Longer Active Adrián Varghese MD Acti ve TRI-SPRINTEC 0.18/0.215/0.25 MG-35 MCG TABS 1 po qd as directed 201 07/04/00 NORGESTIM-ETH ESTRAD TRIPHASIC 36821071302 Active 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 Gibbs 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 ZITHROMAX 250 MG TAB 2 po today, then 1 po q days 2-5 AZITHROMYCIN 71330034757 No Longer Active Adrián Varghese MD Acti ve ZITHROMAX 250 MG TAB 2 po today, then 1 po q days 2-5 AZITHROMYCIN 74038861867 No Longer Active Adrián Varghese MD Acti ve PREDNISONE 20 MG TAB 2 tabs daily for 3 days, 1 t ab daily for 3 days, 1/2 tab daily for 2 days PREDNISONE 47518718767 No Longer Active Adrián Varghese MD Active ZANTAC 75 75 MG TABS take 1 po BID RANITIDINE H CL 59448336039 No Longer Active Uriel BOYD Active BENZACLIN 1-5 % GEL apply to skin BID prn for acne 201 05/05/14 CLINDAMYCIN PHOS-BENZOYL PEROX 53553231423 No Longer Active Uriel BOYD Active BENZACLIN 1-5 % GEL apply to skin BID prn for acne 201 05/05/14 BENZACLIN 1-5 % GEL 378511 CLINDAMYCIN PHOS-BENZOYL PEROX Inactive MINOCYCLINE HCL 100 MG CAPS take one po BID MINOCYCLINE HCL 100 MG CAPS 113060 MINOCYCLINE HCL Inactive CLINDAMYCIN PHOSPHATE 2 % CREA apply cream to acne BID prn 06/14 CLINDAMYCIN PHOSPHATE 2 % CREA 477116 CLINDAMYCIN PHOSP HATE Inactive ULTRAM 50 MG TAB take 1 tab po q 6 hrs prn headache pain ULTRAM 50 MG TAB 564767 TRAMADOL HCL Inactive CYANOCOBALAMIN 1000 MCG/ML INJ SOLN 1 injection weekly for 1 month, than 1 a month for 2 months. recheck lab CYANOCOB ALAMIN 1000 MCG/ML INJ SOLN 042979 CYANOCOBALAMIN Inactive CITALOPRAM HYDROBROMIDE 20 MG ORAL TABS take 1 tab po qday for depresion and anxiety. CITALOPRAM HYDROBROMIDE 20 MG ORAL TABS 2 71124 CITALOPRAM HYDROBROMIDE Inactive PROZAC 10 MG CAP Take 1 tab daily for 1 week. Then increa se to 20mg daily. PROZAC 10 MG CAP 476583 FLUOXETINE HCL Inactive ZANTAC 75 75 MG TABS take 1 po BID ZANTAC 75 75 MG TABS 758817 RANITIDINE HCL Inactive PREDNISONE 20 MG TAB 2 tabs daily for 3 days, 1 t ab daily for 3 days, 1/2 tab daily for 2 days PREDNISONE 20 MG TAB 898902 PREDNISON E Inactive ZITHROMAX 250 MG TAB 2 po today, then 1 po q days 2-5 ZITHROMAX 250 MG TAB 043677 AZITHROMYCIN Inactive ZITHROMAX 250 MG TAB 2 po today, then 1 po q days 2-5 ZITHROMAX 250 MG TAB 939848 AZITHROMYCIN Inactive Immunizations Vaccine Administration Date Value [...] Value Unit Range Description blood pressure, diastolic 68 mm[Hg] BP jones [...] Name Value Unit Range Description Lab Report: Comp. Metabolic Panel - Chem istry sodium, serum 139 mmol/L 033-021 4236/09/06 carbon dioxide, venous blood 25.3 mmol/L 21.0-32 .0 potassium, serum 3.8 mmol/L 3.5-5.2 chloride, serum 102 mmol/L 98-107 blood glucose 85 mg/dL 65-110 urea nitrogen, blood 14 mg/dL 7-18 creatinine, serum 1.16 mg/dL 0.60-1.30 alanine aminotransferase (SGPT), serum 21 U/L 10-55 aspartate aminotransferase (SGOT), serum 14 U/L 15-45 calcium, serum 8.7 mg/dL 8.5-10.1 bilirubin, serum, total 0.20 mg/dL 0.20-1.00 Encounters Code Encounter Date Provider Facility CPT-55605 Level 4 Est. Patient 11:10:55 CDT Hubert [facility] CPT-26277 Level 4 Est. 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 Patient 13:54:09 CDT Adrián dyson MD [facility] CPT-46043 Level 3 Est. Patient 09:22:14 CDT Adrián dyson MD [facility] CPT-02088 Level 3 Est. Patient 08:59:31 CDT Adrián dyson MD [facility] CPT-10109 Level 3 Est. Patient 11:58:31 CDT Adrián dyson MD [facility] CPT-25876 Level 3 Est. Patient 09:06:35 CDT Adrián dyson MD [facility] CPT-51214 Level 3 Est. Patient 09:18:45 CDT Adrián dyson MD [facility] CPT-98493 Level 3 Est. Patient 09:13:22 CDT Adrián dyson MD [facility] CPT-01632 Level 3 Est. 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 Patient 14:00:53 CDT Uriel bhatia [facility] CPT-40275 Level 3 Est. Patient 20:00:09 CDT Terry jenkins DO [facility] CPT-37685 Level 3 Est. Patient 08:45:08 CDT Uriel bhatia [facility] CPT-17813 Level 3 Est. Patient 09:09:26 CDT Uriel Ivy sriram [facility] CPT-16868 Level 3 Est. Patient 16:32:31 CDT Adrián dyson MD [facility] CPT-69126 Level 3 Est. Patient 09:35:27 FOREIGN LAW CONSULTANT Norman fuentes [facility] CPT-65763 Level 2 Est. Patient 16:51:37 FOREIGN LAW CONSULTANT Adrián dyson MD [facility] CPT-41028 Level 3 Est. Patient 10:00:11 FOREIGN LAW CONSULTANT Ace Arriaza MD [facility] Procedures Code Procedure Name Date Entry Date Standard Desc ription CPT-55978 First Vx - Ix admin via ID I M or jet injects without counseling by physician 14:18:02 CDT CPT-52522 Gardasil 9 Intramuscular Suspension 1 4:18:02 CDT CPT-J3420 Vitamin B12 1000mcg (Cyanocobalamin) 16:30:23 CDT CPT-94566 Abx/Therapy Injection 16:30:23 CDT CPT-J3420 Vitamin B12 1000mcg (Cyanocobalamin) 16:09:42 CDT CPT-37358 Abx/Therapy Injection 16:09:42 CDT CPT-J3420 Vitamin B12 1000mcg (Cyanocobalamin) 15:22:47 CDT CPT-25402 Abx/Therapy Injection 15:22:47 CDT CPT-J3420 Vitamin B12 1000mcg (Cyanocobalamin) 17:00:35 CDT CPT-02836 Abx/Therapy Injection 17:00:35 CDT CPT-29731 First Vx - Ix admin via ID I M or jet injects without counseling by physician 16:04:17 FOREIGN LAW CONSULTANT CPT-75443 Gardasil 9 Intramuscular Suspension 1 6:04:17 FOREIGN LAW CONSULTANT CPT-34940 Venipuncture Draw Fee 09:40:26 CDT CPT-60068 [place] [facility] - LAB USE ONLY 09:40:26 CDT 11/30 CPT-76534 CBC with Diff - LAB USE ONLY 09:40:26 CDT 2 CPT-03780 Addl Vx - Ix admin via ID IM or jet injects without counseling by physician 09:40:21 CDT CPT-49080 Menactra Intramuscular Injectable 09:40:21 CDT CPT-14551 Addl Vx - Ix admin via ID IM or jet injects without counseling by physician 09:40:21 CDT CPT-93658 Gardasil 9 Intramuscular Suspension 0 9:40:21 CDT CPT-22139 First Vx - Ix admin via ID I M or jet injects without counseling by physician 09:40:21 CDT CPT-96886 Havrix Intramuscular Suspension 720 EL U /0.5ML 09:40:21 CDT CPT-J2930 Solu Medrol 125 mg (Methyl Prednisolone Sodium Succinate) 09:43:26 CDT CPT-66727 Abx/Therapy Injection 09:43:26 CDT CPT-J2930 Solu Medrol 125 mg (Methyl Prednisolone Sodium Succinate) 09:05:55 CDT CPT-93508 Abx/Therapy Injection 09:05:55 CDT CPT-81429 Venipuncture Draw Fee 14:01:33 CDT CPT-02396 EKG Trac and Interp 11:22:04 CDT CPT-05261 Venipuncture Draw Fee 10:53:35 CDT CPT-J2930 Solu Medrol 125 mg (Methyl Prednisolone Sodium Succinate) 09:29:26 CDT CPT-36322 Abx/Therapy Injection 09:29:26 CDT CPT-Cryo Cryotherapy 16:51:37 FOREIGN LAW CONSULTANT
--- OUTSIDE RECORDS SUMMARY | 2019-07-22 19:31 | XMS REPORT | Clinical Summary ---
Author Author Yovanny, Clarisa Christopher Organization [facility] Address Unknown Phone Unavailable Allergies, Adverse [...] twice daily, for anxiety 2016 BUSPIRONE HCL 18106263070 Active Shannan Gibbs APRN Active PROZAC 20 MG CAP Take 1 tab daily. FLUOXETINE HCL 56359559777 Active Shannan Gibbs APRN Active PROZAC 10 MG CAP Take 1 tab daily for 1 week. Then increa se to 20mg daily. FLUOXETINE HCL 93855174874 Active Shannan Gibbs APRN Active CITALOPRAM HYDROBROMIDE 20 MG ORAL TABS take 1 tab po qday for depresion and anxiety. CITALOPRAM HYDROBROMIDE 19281174417 No L onger Active Shannan Gibbs APRN Active CYANOCOBALAMIN 1000 MCG/ML INJ SOLN 1 injection weekly for 1 month, than 1 a month for 2 months. recheck lab CYANOCOBALAMIN 92800150458 No Longer Active Shannan Gibbs APRN Active ULTRAM 50 MG TAB 1 TAB PO Q 6 HRS PRN HEADACHE TRAMADOL HCL 79726591126 Active Adrián Varghese MD Active ULTRAM 50 MG TAB take 1 tab po q 6 hrs prn headache pain TRAMADOL HCL 91696014847 No Longer Active Adrián Varghese MD Acti ve CLINDAMYCIN PHOSPHATE 2 % CREA apply cream to acne BID prn 06/14 CLINDAMYCIN PHOSPHATE 91073783472 No Longer Active Adrián Joseph Active MINOCYCLINE HCL 100 MG CAPS take one po BID MINOCYCLINE HCL 21975498601 No Longer Active Adrián Varghese MD Acti ve TRI-SPRINTEC 0.18/0.215/0.25 MG-35 MCG TABS 1 po qd as directed 201 07/04/00 NORGESTIM-ETH ESTRAD TRIPHASIC 96955436489 Active Adrián Varghese MD Active ZITHROMAX 250 MG TAB 2 po today, then 1 po q days 2-5 AZITHROMYCIN 66068106660 No Longer Active Adrián Varghese MD Acti ve ZITHROMAX 250 MG TAB 2 po today, then 1 po q days 2-5 AZITHROMYCIN 75782877697 No Longer Active Adrián Varghese MD Acti ve PREDNISONE 20 MG TAB 2 tabs daily for 3 days, 1 t ab daily for 3 days, 1/2 tab daily for 2 days PREDNISONE 73109121881 No Longer Active Adrián Varghese MD Active ZANTAC 75 75 MG TABS take 1 po BID RANITIDINE H CL 85527935970 No Longer Active Uriel BOYD Active BENZACLIN 1-5 % GEL apply to skin BID prn for acne 201 05/05/14 CLINDAMYCIN PHOS-BENZOYL PEROX 64527319606 No Longer Active Uriel BOYD Active BENZACLIN 1-5 % GEL apply to skin BID prn for acne 201 05/05/14 BENZACLIN 1-5 % GEL 328123 CLINDAMYCIN PHOS-BENZOYL PEROX Inactive MINOCYCLINE HCL 100 MG CAPS take one po BID MINOCYCLINE HCL 100 MG CAPS 707426 MINOCYCLINE HCL Inactive CLINDAMYCIN PHOSPHATE 2 % CREA apply cream to acne BID prn 06/14 CLINDAMYCIN PHOSPHATE 2 % CREA 456532 CLINDAMYCIN PHOSP HATE Inactive ULTRAM 50 MG TAB take 1 tab po q 6 hrs prn headache pain ULTRAM 50 MG TAB 969121 TRAMADOL HCL Inactive CYANOCOBALAMIN 1000 MCG/ML INJ SOLN 1 injection weekly for 1 month, than 1 a month for 2 months. recheck lab CYANOCOB ALAMIN 1000 MCG/ML INJ SOLN 926535 CYANOCOBALAMIN Inactive CITALOPRAM HYDROBROMIDE 20 MG ORAL TABS take 1 tab po qday for depresion and anxiety. CITALOPRAM HYDROBROMIDE 20 MG ORAL TABS 2 03143 CITALOPRAM HYDROBROMIDE Inactive ZANTAC 75 75 MG TABS take 1 po BID ZANTAC 75 75 MG TABS 802370 RANITIDINE HCL Inactive PREDNISONE 20 MG TAB 2 tabs daily for 3 days, 1 t ab daily for 3 days, 1/2 tab daily for 2 days PREDNISONE 20 MG TAB 732756 PREDNISON E Inactive ZITHROMAX 250 MG TAB 2 po today, then 1 po q days 2-5 ZITHROMAX 250 MG TAB 4044424 AZITHROMYCIN Inactive ZITHROMAX 250 MG TAB 2 po today, then 1 po q days 2-5 ZITHROMAX 250 MG TAB 1984036 AZITHROMYCIN Inactive Immunizations Vaccine Administration Date Value [...] Report: CBC W/DIFF, MonoSpot - Hemat ology leukocyte count, blood 5.9 10^3/MM^3 10*3/mm3 4.6-10.2 neutrophils as percent of blood leukocytes 57.2 % 42.2-75.2 monocytes as percent of blood leukocytes 5.9 % 1.7-9.3 lymphocytes as percent of blood leukocytes 34.8 % 20.5-51.1 erythrocyte (RBC) count 4.58 10^6/MM^3 10*6/mm3 4.04-5.4 8 hemoglobin, blood 12.4 g/dL 12.0-16.0 hematocrit, blood 38.3 % 36.0-46.0 mean corpuscular volume, RBC 84 fL 80-97 mean corpuscular hemoglobin, RBC 27.2 pg 27. 0-31.2 mean corpuscular hemoglobin concentration, RBC 32.5 G/DL % 31.8-35.4 red blood cell distribution width 15.0 % 11 .6-14.8 platelet count 351 10^3/MM^3 10*3/mm3 142-424 Lab Report: Comp. Metabolic Panel - Chem istry sodium, serum 139 mmol/L 399-283 1466/09/06 carbon dioxide, venous blood 25.3 mmol/L 21.0-32 [...] 0.20-1.00 Encounters Code Encounter Date Provider Facility CPT-92886 Level 4 Est. Patient 13:54:09 CDT Adrián dyson MD [facility] CPT-52279 Level 3 Est. Patient 09:22:14 CDT Adrián dyson MD [facility]-92848 Level 3 Est. Patient 08:59:31 CDT Adrián dyson MD [facility] CPT-90764 Level 3 Est. Patient 11:58:31 CDT Adrián dyson MD [facility] CPT-93447 Level 3 Est. Patient 09:06:35 CDT Adrián dyson MD [facility] CPT-41554 Level 3 Est. Patient 09:18:45 CDT Adrián dyson MD [facility] CPT-30998 Level 3 Est. Patient 09:13:22 CDT Adrián dyson MD [facility] CPT-06940 Level 3 Est. 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 Patient 14:00:53 CDT Uriel bhatia [facility] CPT-21332 Level 3 Est. Patient 20:00:09 CDT Terry jenkins DO [facility] CPT-79204 Level 3 Est. Patient 08:45:08 CDT rUiel bhatia [facility] CPT-15352 Level 3 Est. Patient 09:09:26 CDT Uriel bhatia -69898 Level 3 Est. Patient 16:32:31 CDT Adrián dyson MD [facility] CPT-37903 Level 3 Est. Patient 09:35:27 PULP GRINDER AND BLENDER Norman BOYD [facility] CPT-69151 Level 2 Est. Patient 16:51:37 PULP GRINDER [employer] BLENDER Adrián dyson MD [facility] CPT-95247 Level 3 Est. Patient 10:00:11 PULP GRINDER [employer] BLENDER Ace Arriaza MD [facility] Procedures Code Procedure Name Date Entry Date Standard Desc ription CPT-46500 First Vx - Ix admin via ID I M or jet injects without counseling by physician 14:18:02 CDT CPT-67335 Gardasil 9 Intramuscular Suspension 1 4:18:02 CDT CPT-J3420 Vitamin B12 1000mcg (Cyanocobalamin) 16:30:23 CDT CPT-65358 Abx/Therapy Injection 16:30:23 CDT CPT-J3420 Vitamin B12 1000mcg (Cyanocobalamin) 16:09:42 CDT CPT-26796 Abx/Therapy Injection 16:09:42 CDT CPT-J3420 Vitamin B12 1000mcg (Cyanocobalamin) 15:22:47 CDT CPT-29196 Abx/Therapy Injection 15:22:47 CDT CPT-J3420 Vitamin B12 1000mcg (Cyanocobalamin) 17:00:35 CDT CPT-96399 Abx/Therapy Injection 17:00:35 CDT CPT-24680 First Vx - Ix admin via ID I M or jet injects without counseling by physician 16:04:17 PULP GRINDER [employer] BLENDER CPT-90360 Gardasil 9 Intramuscular Suspension 1 6:04:17 PULP GR[employer]ER [employer] BLENDER CPT-66877 Venipuncture Draw Fee 09:40:26 CDT CPT-80769 [place] [facility] - LAB USE ONLY 09:40:26 CDT 11/30 CPT-13490 CBC with Diff - LAB USE ONLY 09:40:26 CDT 2 CPT-82481 Addl Vx - Ix admin via ID IM or jet injects without counseling by physician 09:40:21 CDT CPT-85281 Menactra Intramuscular Injectable 09:40:21 CDT CPT-58152 Addl Vx - Ix admin via ID IM or jet injects without counseling by physician 09:40:21 CDT CPT-98424 Gardasil 9 Intramuscular Suspension 0 9:40:21 CDT CPT-42399 First Vx - Ix admin via ID I M or jet injects without counseling by physician 09:40:21 CDT CPT-89594 Havrix Intramuscular Suspension 720 EL U /0.5ML 09:40:21 CDT CPT-J2930 Solu Medrol 125 mg (Methyl Prednisolone Sodium Succinate) 09:43:26 CDT CPT-35604 Abx/Therapy Injection 09:43:26 CDT CPT-J2930 Solu Medrol 125 mg (Methyl Prednisolone Sodium Succinate) 09:05:55 CDT CPT-50563 Abx/Therapy Injection 09:05:55 CDT CPT-25959 Venipuncture Draw Fee 14:01:33 CDT CPT-79237 EKG Trac and Interp 11:22:04 CDT CPT-82603 Venipuncture Draw Fee 10:53:35 CDT CPT-J2930 Solu Medrol 125 mg (Methyl Prednisolone Sodium Succinate) 09:29:26 CDT CPT-08984 Abx/Therapy Injection 09:29:26 CDT CPT-Cryo Cryotherapy 16:51:37 PULP GRINDER AND BLENDER
--- OUTSIDE RECORDS SUMMARY | 2019-07-22 19:31 | XMS REPORT | Clinical Summary ---
Author Author Yovanny, Clarisa Christopher Organization [facility] Address Unknown Phone Unavailable Allergies, Adverse Reactions, [...] elsewhere classified B12 deficiency 266.2 Active Samreen Cristo Other B-complex deficiencies Pharyngitis-Acute ICD-462 Inactive Adrián leavitt MD Medication List Medication Instructions Start Date Stop Date Generic Name NDC Status Provider Patient Instruction ULTRAM 50 MG TAB 1 TAB PO Q 6 HRS PRN HEADACHE TRAMADOL HCL 07262434020 Active Adrián Varghese MD Active CYANOCOBALAMIN 1000 MCG/ML INJ SOLN 1 injection weekly for 1 month, than 1 a month for 2 months. recheck lab CYANOCOBALAMIN 93847186555 Active Samreen Cristo Active CITALOPRAM HYDROBROMIDE 20 MG ORAL TABS take 1 tab po qday for depresion and anxiety. CITALOPRAM HYDROBROMIDE 58626602704 Active Adrián Varghese MD Active ULTRAM 50 MG TAB take 1 tab po q 6 hrs prn headache pain TRAMADOL HCL 58150048756 No Longer Active Adrián Varghese MD Acti ve CLINDAMYCIN PHOSPHATE 2 % CREA apply cream to acne BID prn 06/14 CLINDAMYCIN PHOSPHATE 72033540535 No Longer Active Adrián Joseph Active MINOCYCLINE HCL 100 MG CAPS take one po BID MINOCYCLINE HCL 87775974532 No Longer Active Adrián Varghese MD Acti ve TRI-SPRINTEC 0.18/0.215/0.25 MG-35 MCG TABS 1 po qd as directed 201 07/04/00 NORGESTIM-ETH ESTRAD TRIPHASIC 85472752344 Active Adrián Varghese MD Active ZITHROMAX 250 MG TAB 2 po today, then 1 po q days 2-5 AZITHROMYCIN 99582996266 No Longer Active Adrián Varghese MD Acti ve ZITHROMAX 250 MG TAB 2 po today, then 1 po q days 2-5 AZITHROMYCIN 93187974813 No Longer Active Adrián Varghese MD Acti ve PREDNISONE 20 MG TAB 2 tabs daily for 3 days, 1 t ab daily for 3 days, 1/2 tab daily for 2 days PREDNISONE 62802459629 No Longer Active Adrián Varghese MD Active ZANTAC 75 75 MG TABS take 1 po BID RANITIDINE H CL 26556245031 No Longer Active Uriel BOYD Active BENZACLIN 1-5 % GEL apply to skin BID prn for acne 201 05/05/14 CLINDAMYCIN PHOS-BENZOYL PEROX 41390215890 No Longer Active Uriel BOYD Active BENZACLIN 1-5 % GEL apply to skin BID prn for acne 201 05/05/14 BENZACLIN 1-5 % GEL 849916 CLINDAMYCIN PHOS-BENZOYL PEROX Inactive MINOCYCLINE HCL 100 MG CAPS take one po BID MINOCYCLINE HCL 100 MG CAPS 315365 MINOCYCLINE HCL Inactive CLINDAMYCIN PHOSPHATE 2 % CREA apply cream to acne BID prn 06/14 CLINDAMYCIN PHOSPHATE 2 % CREA 195409 CLINDAMYCIN PHOSP HATE Inactive ULTRAM 50 MG TAB take 1 tab po q 6 hrs prn headache pain ULTRAM 50 MG TAB 892926 TRAMADOL HCL Inactive ZANTAC 75 75 MG TABS take 1 po BID ZANTAC 75 75 MG TABS 731110 RANITIDINE HCL Inactive PREDNISONE 20 MG TAB 2 tabs daily for 3 days, 1 t ab daily for 3 days, 1/2 tab daily for 2 days PREDNISONE 20 MG TAB 005542 PREDNISON E Inactive ZITHROMAX 250 MG TAB 2 po today, then 1 po q days 2-5 ZITHROMAX 250 MG TAB 1303035 AZITHROMYCIN Inactive ZITHROMAX 250 MG TAB 2 po today, then 1 po q days 2-5 ZITHROMAX 250 MG TAB 2467236 AZITHROMYCIN Inactive Immunizations Vaccine Administration Date Value [...] BP jones blood pressure, systolic - 8480-6 134 mm[Hg] BP sys height E&M - 8302-2 66 [in_us] Bdy h eight pulse rate E&M - 8867-4 105 /min H eart rate temperature E&M 97.2 [degF] Body temp erature weight E&M - 3141-9 142 [lb_av] Weigh t Measured blood pressure, diastolic - 8462-4 68 mm[Hg] [...] - 3141-9 139.3 [lb_av] Weigh t Measured Diagnostic Results Date Name Value Unit Range [...] 11 .6-14.8 platelet count 351 10^3/MM^3 10*3/mm3 207-449 1805/10/03 erythrocyte (RBC) count 4.58 10^6/MM^3 10*6/mm3 4.04-5.4 8 lymphocytes as percent of blood leukocytes 34.8 % 20.5-51.1 monocytes as percent of blood leukocytes 5.9 % 1.7-9.3 neutrophils as percent of blood leukocytes 57.2 % 42.2-75.2 leukocyte count, blood 5.9 10^3/MM^3 10*3/mm3 4.6-10.2 Encounters Code Encounter Date Provider Facility CPT-01764 Level 4 Est. Patient 13:54:09 CDT Adrián dyson MD [facility] CPT-20753 Level 3 Est. Patient 09:22:14 CDT Adrián dyson MD [facility]-04156 Level 3 Est. Patient 08:59:31 CDT Adrián dyson MD [facility]-73131 Level 3 Est. Patient 11:58:31 CDT Adrián dyson MD [facility] CPT-13750 Level 3 Est. Patient 09:06:35 CDT Adrián dyson MD [facility] CPT-27189 Level 3 Est. Patient 09:18:45 CDT Adrián dyson MD [facility] CPT-89670 Level 3 Est. Patient 09:13:22 CDT Adrián dyson MD [facility] CPT-31152 Level 3 Est. 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 Patient 14:00:53 CDT Uriel bhatia [facility] CPT-64266 Level 3 Est. Patient 20:00:09 CDT Terry jenkins DO [facility] CPT-03875 Level 3 Est. Patient 08:45:08 CDT Uriel bhatia [facility] CPT-67821 Level 3 Est. Patient 09:09:26 CDT Uriel bhatia [facility] CPT-76800 Level 3 Est. Patient 16:32:31 CDT Adrián dyson MD [facility] CPT-16773 Level 3 Est. Patient 09:35:27 FRETTED INSTRUMENT INSPECTOR Norman Aguilararnulfo BOYD [facility] CPT-10528 Level 2 Est. Patient 16:51:37 FRETTED INSTRUMENT INSPECTOR Adrián dyson MD [facility] CPT-18196 Level 3 Est. Patient 10:00:11 FRETTED INSTRUMENT INSPECTOR Ace Arriaza MD [facility] Procedures Code Procedure Name Date Entry Date Standard Desc ription CPT-J3420 Vitamin B12 1000mcg (Cyanocobalamin) 16:09:42 CDT CPT-76553 Abx/Therapy Injection 16:09:42 CDT CPT-J3420 Vitamin B12 1000mcg (Cyanocobalamin) 15:22:47 CDT CPT-77788 Abx/Therapy Injection 15:22:47 CDT CPT-J3420 Vitamin B12 1000mcg (Cyanocobalamin) 17:00:35 CDT CPT-57766 Abx/Therapy Injection 17:00:35 CDT CPT-59680 First Vx - Ix admin via ID I M or jet injects without counseling by physician 16:04:17 FRETTED INSTRUMENT INSPECTOR CPT-90243 Gardasil 9 Intramuscular Suspension 1 6:04:17 FRETTED INSTRUMENT INSPECTOR CPT-01033 Venipuncture Draw Fee 09:40:26 CDT CPT-91511 [place] [facility] - LAB USE ONLY 09:40:26 CDT 11/30 CPT-82484 CBC with Diff - LAB USE ONLY 09:40:26 CDT 2 CPT-36588 Addl Vx - Ix admin via ID IM or jet injects without counseling by physician 09:40:21 CDT CPT-64212 Menactra Intramuscular Injectable 09:40:21 CDT CPT-23931 Addl Vx - Ix admin via ID IM or jet injects without counseling by physician 09:40:21 CDT CPT-27827 Gardasil 9 Intramuscular Suspension 0 9:40:21 CDT CPT-58257 First Vx - Ix admin via ID I M or jet injects without counseling by physician 09:40:21 CDT CPT-17364 Havrix Intramuscular Suspension 720 EL U /0.5ML 09:40:21 CDT CPT-J2930 Solu Medrol 125 mg (Methyl Prednisolone Sodium Succinate) 09:43:26 CDT CPT-78632 Abx/Therapy Injection 09:43:26 CDT CPT-J2930 Solu Medrol 125 mg (Methyl Prednisolone Sodium Succinate) 09:05:55 CDT CPT-75642 Abx/Therapy Injection 09:05:55 CDT CPT-87179 Venipuncture Draw Fee 14:01:33 CDT CPT-27000 EKG Trac and Interp 11:22:04 CDT CPT-19335 Venipuncture Draw Fee 10:53:35 CDT CPT-J2930 Solu Medrol 125 mg (Methyl Prednisolone Sodium Succinate) 09:29:26 CDT CPT-20468 Abx/Therapy Injection 09:29:26 CDT CPT-Cryo Cryotherapy 16:51:37 FRETTED INSTRUMENT INSPECTOR
--- OUTSIDE RECORDS SUMMARY | 2019-07-22 19:31 | XMS REPORT | Clinical Summary ---
Author Author Yovanny, Clarisa Christopher Organization [facility] Address Unknown Phone Unavailable Allergies, [...] Q 6 HRS PRN HEADACHE TRAMADOL HCL 20754196523 Active Adriná Varghese MD Active CYANOCOBALAMIN 1000 MCG/ML INJ SOLN 1 injection weekly for 1 month, than 1 a month for 2 months. recheck lab CYANOCOBALAMIN 39253358751 Active Samreen Cristo Active CITALOPRAM HYDROBROMIDE 20 MG ORAL TABS take 1 tab po qday for depresion and anxiety. CITALOPRAM HYDROBROMIDE 15157846109 Active Adrián Varghese MD Active ULTRAM 50 MG TAB take 1 tab po q 6 hrs prn headache pain TRAMADOL HCL 01479195361 No Longer Active Adrián Varghese MD Acti ve CLINDAMYCIN PHOSPHATE 2 % CREA apply cream to acne BID prn 06/14 CLINDAMYCIN PHOSPHATE 80434827217 No Longer Active Adrián Joseph Active MINOCYCLINE HCL 100 MG CAPS take one po BID MINOCYCLINE HCL 70061545641 No Longer Active Adrián Varghese MD Acti ve TRI-SPRINTEC 0.18/0.215/0.25 MG-35 MCG TABS 1 po qd as directed 201 07/04/00 NORGESTIM-ETH ESTRAD TRIPHASIC 98754295410 Active Adrián Varghese MD Active ZITHROMAX 250 MG TAB 2 po today, then 1 po q days 2-5 AZITHROMYCIN 43321252594 No Longer Active Adrián Varghese MD Acti ve ZITHROMAX 250 MG TAB 2 po today, then 1 po q days 2-5 AZITHROMYCIN 29857456673 No Longer Active Adrián Varghese MD Acti ve PREDNISONE 20 MG TAB 2 tabs daily for 3 days, 1 t ab daily for 3 days, 1/2 tab daily for 2 days PREDNISONE 65593798308 No Longer Active Adrián Varghese MD Active ZANTAC 75 75 MG TABS take 1 po BID RANITIDINE H CL 09060440064 No Longer Active Uriel BOYD Active BENZACLIN 1-5 % GEL apply to skin BID prn for acne 201 05/05/14 CLINDAMYCIN PHOS-BENZOYL PEROX 60851437417 No Longer Active Uriel BOYD Active BENZACLIN 1-5 % GEL apply to skin BID prn for acne 201 05/05/14 BENZACLIN 1-5 % GEL 481058 CLINDAMYCIN PHOS-BENZOYL PEROX Inactive MINOCYCLINE HCL 100 MG CAPS take one po BID MINOCYCLINE HCL 100 MG CAPS 660649 MINOCYCLINE HCL Inactive CLINDAMYCIN PHOSPHATE 2 % CREA apply cream to acne BID prn 06/14 CLINDAMYCIN PHOSPHATE 2 % CREA 893954 CLINDAMYCIN PHOSP HATE Inactive ULTRAM 50 MG TAB take 1 tab po q 6 hrs prn headache pain ULTRAM 50 MG TAB 272713 TRAMADOL HCL Inactive ZANTAC 75 75 MG TABS take 1 po BID ZANTAC 75 75 MG TABS 658263 RANITIDINE HCL Inactive PREDNISONE 20 MG TAB 2 tabs daily for 3 days, 1 t ab daily for 3 days, 1/2 tab daily for 2 days PREDNISONE 20 MG TAB 961956 PREDNISON E Inactive ZITHROMAX 250 MG TAB 2 po today, then 1 po q days 2-5 ZITHROMAX 250 MG TAB 0031781 AZITHROMYCIN Inactive ZITHROMAX 250 MG TAB 2 po today, then 1 po q days 2-5 ZITHROMAX 250 MG TAB 2625272 AZITHROMYCIN Inactive Immunizations Vaccine Administration Date Value [...] .6-14.8 platelet count 351 10^3/MM^3 10*3/mm3 142-424 Encounters Code Encounter Date Provider Facility CPT-57100 Level 4 Est. Patient 13:54:09 CDT Adrián dyson MD [facility] CPT-15389 Level 3 Est. Patient 09:22:14 CDT Adrián dyson MD [facility]-48681 Level 3 Est. Patient 08:59:31 CDT Adrián ydson MD [facility]-58550 Level 3 Est. Patient 11:58:31 CDT Adrián dyson MD [facility] CPT-38310 Level 3 Est. Patient 09:06:35 CDT Adrián dyson MD [facility] CPT-61695 Level 3 Est. Patient 09:18:45 CDT Adrián dyson MD [facility] CPT-92313 Level 3 Est. Patient 09:13:22 CDT Adrián dyson MD [facility] CPT-31744 Level 3 Est. Patient 18:04:31 INSIDE SALES Adrián dyson MD [facility] CPT-20829 Level 4 Est. Patient 14:00:53 CDT Uriel bhatia [facility] CPT-92982 Level 3 Est. Patient 20:00:09 CDT Terry jenkins DO [facility] CPT-86572 Level 3 Est. Patient 08:45:08 CDT Uriel bhatia [facility] CPT-18372 Level 3 Est. Patient 09:09:26 CDT Uriel bhatia [facility]-32105 Level 3 Est. Patient 16:32:31 CDT Adrián dyson MD [facility] CPT-07092 Level 3 Est. Patient 09:35:27 INSIDE [address]ES [address] BOYD [facility] CPT-98261 Level 2 Est. Patient 16:51:37 INSIDE SALES Adrián dyson MD [facility] CPT-70176 Level 3 Est. Patient 10:00:11 INSIDE SALES Ace Arriaza MD [facility] Procedures Code Procedure Name Date Entry Date Standard Desc ription CPT-19231 First Vx - Ix admin via ID I M or jet injects without counseling by physician 14:18:02 CDT CPT-56354 Gardasil 9 Intramuscular Suspension 1 4:18:02 CDT CPT-J3420 Vitamin B12 1000mcg (Cyanocobalamin) 16:30:23 CDT CPT-14856 Abx/Therapy Injection 16:30:23 CDT CPT-J3420 Vitamin B12 1000mcg (Cyanocobalamin) 16:09:42 CDT CPT-75579 Abx/Therapy Injection 16:09:42 CDT CPT-J3420 Vitamin B12 1000mcg (Cyanocobalamin) 15:22:47 CDT CPT-58432 Abx/Therapy Injection 15:22:47 CDT CPT-J3420 Vitamin B12 1000mcg (Cyanocobalamin) 17:00:35 CDT CPT-07421 Abx/Therapy Injection 17:00:35 CDT CPT-32941 First Vx - Ix admin via ID I M or jet injects without counseling by physician 16:04:17 INSIDE SALES CPT-61744 Gardasil 9 Intramuscular Suspension 1 6:04:17 INSIDE SALES CPT-50176 Venipuncture Draw Fee 09:40:26 CDT CPT-81683 [place] [facility] - LAB USE ONLY 09:40:26 CDT 11/30 CPT-58597 CBC with Diff - LAB USE ONLY 09:40:26 CDT 2 CPT-82989 Addl Vx - Ix admin via ID IM or jet injects without counseling by physician 09:40:21 CDT CPT-78885 Menactra Intramuscular Injectable 09:40:21 CDT CPT-97620 Addl Vx - Ix admin via ID IM or jet injects without counseling by physician 09:40:21 CDT CPT-64501 Gardasil 9 Intramuscular Suspension 0 9:40:21 CDT CPT-44802 First Vx - Ix admin via ID I M or jet injects without counseling by physician 09:40:21 CDT CPT-12972 Havrix Intramuscular Suspension 720 EL U /0.5ML 09:40:21 CDT CPT-J2930 Solu Medrol 125 mg (Methyl Prednisolone Sodium Succinate) 09:43:26 CDT CPT-03791 Abx/Therapy Injection 09:43:26 CDT CPT-J2930 Solu Medrol 125 mg (Methyl Prednisolone Sodium Succinate) 09:05:55 CDT CPT-50925 Abx/Therapy Injection 09:05:55 CDT CPT-70769 Venipuncture Draw Fee 14:01:33 CDT CPT-38223 EKG Trac and Interp 11:22:04 CDT CPT-61090 Venipuncture Draw Fee 10:53:35 CDT CPT-J2930 Solu Medrol 125 mg (Methyl Prednisolone Sodium Succinate) 09:29:26 CDT CPT-83943 Abx/Therapy Injection 09:29:26 CDT CPT-Cryo Cryotherapy 16:51:37 INSIDE SALES
--- OUTSIDE RECORDS SUMMARY | 2019-07-22 19:31 | XMS REPORT | Clinical Summary ---
Author Author Yovanny, Clarisa Christopher Organization [facility] Address Unknown Phone Unavailable Allergies, [...] to acne BID prn 06/14 CLINDAMYCIN PHOSPHATE 55802695369 No Longer Active Adrián Joseph Active MINOCYCLINE HCL 100 MG CAPS take one po BID MINOCYCLINE HCL 11969686097 No Longer Active Adrián Varghese MD Acti ve TRI-SPRINTEC 0.18/0.215/0.25 MG-35 MCG TABS 1 po qd as directed 201 07/04/00 NORGESTIM-ETH ESTRAD TRIPHASIC 42178234721 Active Adrián Varghese MD Active ZITHROMAX 250 MG TAB 2 po today, then 1 po q days 2-5 AZITHROMYCIN 40969627697 No Longer Active Adrián Varghese MD Acti ve ULTRAM 50 MG TAB take 1 tab po q 6 hrs prn headache pain TRAMADOL HCL 37843184454 Active Adrián Varghese MD Active ZITHROMAX 250 MG TAB 2 po today, then 1 po q days 2-5 AZITHROMYCIN 35578548112 No Longer Active Adrián Varghese MD Acti ve PREDNISONE 20 MG TAB 2 tabs daily for 3 days, 1 t ab daily for 3 days, 1/2 tab daily for 2 days PREDNISONE 06572445345 No Longer Active Adrián Varghese MD Active ZANTAC 75 75 MG TABS take 1 po BID RANITIDINE H CL 78779366265 No Longer Active Uriel BOYD Active BENZACLIN 1-5 % GEL apply to skin BID prn for acne 201 05/05/14 CLINDAMYCIN PHOS-BENZOYL PEROX 21712038732 No Longer Active Uriel BOYD Active BENZACLIN 1-5 % GEL apply to skin BID prn for acne 201 05/05/14 BENZACLIN 1-5 % GEL 429949 CLINDAMYCIN PHOS-BENZOYL PEROX Inactive MINOCYCLINE HCL 100 MG CAPS take one po BID MINOCYCLINE HCL 100 MG CAPS 181571 MINOCYCLINE HCL Inactive CLINDAMYCIN PHOSPHATE 2 % CREA apply cream to acne BID prn 06/14 CLINDAMYCIN PHOSPHATE 2 % CREA 775183 CLINDAMYCIN PHOSP HATE Inactive ZANTAC 75 75 MG TABS take 1 po BID ZANTAC 75 75 MG TABS 059690 RANITIDINE HCL Inactive PREDNISONE 20 MG TAB 2 tabs daily for 3 days, 1 t ab daily for 3 days, 1/2 tab daily for 2 days PREDNISONE 20 MG TAB 163641 PREDNISON E Inactive ZITHROMAX 250 MG TAB 2 po today, then 1 po q days 2-5 ZITHROMAX 250 MG TAB 4526664 AZITHROMYCIN Inactive ZITHROMAX 250 MG TAB 2 po today, then 1 po q days 2-5 ZITHROMAX 250 MG TAB 4248018 AZITHROMYCIN Inactive Immunizations Vaccine Administration Date Value [...] pressure, diastolic - 8462-4 68 mm[Hg] BP jnoes blood pressure, systolic - 8480-6 125 mm[Hg] [...] 142-424 Encounters Code Encounter Date Provider Facility CPT-64473 Level 3 Est. Patient 09:22:14 CDT Adrián dyson MD [facility] CPT-62900 Level 3 Est. Patient 08:59:31 CDT Adrián dyson MD [facility] CPT-80475 Level 3 Est. Patient 11:58:31 CDT Adrián dyson MD [facility] CPT-42690 Level 3 Est. Patient 09:06:35 CDT Adrián dyson MD [facility] CPT-96778 Level 3 Est. Patient 09:18:45 CDT Adrián dyson MD [facility] CPT-24921 Level 3 Est. Patient 09:13:22 CDT Adrián dyson MD [facility] CPT-95300 Level 3 Est. Patient 18:04:31 BUTTON BRADDER Adrián dyson MD [facility] CPT-60833 Level 4 Est. Patient 14:00:53 CDT Uriel bhatia [facility] CPT-50523 Level 3 Est. Patient 20:00:09 CDT Terry jenkins DO [facility] CPT-98780 Level 3 Est. Patient 08:45:08 CDT Uriel bhatia [facility] CPT-34672 Level 3 Est. Patient 09:09:26 CDT Uriel bhatia [facility] CPT-75844 Level 3 Est. Patient 16:32:31 CDT Adrián dyson MD [facility] CPT-67390 Level 3 Est. Patient 09:35:27 BUTTON BRADDER Norman fuentes [facility] CPT-22460 Level 2 Est. Patient 16:51:37 BUTTON BRADDER Adrián dyson MD [facility] CPT-63232 Level 3 Est. Patient 10:00:11 BUTTON BRADDER Ace Arriaza MD [facility] Procedures Code Procedure Name Date Entry Date Standard Desc ription CPT-29944 Venipuncture Draw Fee 09:40:26 CDT CPT-77962 [place] [facility] - LAB USE ONLY 09:40:26 CDT 11/30 CPT-79111 CBC with Diff - LAB USE ONLY 09:40:26 CDT 2 CPT-95401 Addl Vx - Ix admin via ID IM or jet injects without counseling by physician 09:40:21 CDT CPT-06588 Menactra Intramuscular Injectable 09:40:21 CDT CPT-42065 Addl Vx - Ix admin via ID IM or jet injects without counseling by physician 09:40:21 CDT CPT-30561 Gardasil 9 Intramuscular Suspension 0 9:40:21 CDT CPT-86228 First Vx - Ix admin via ID I M or jet injects without counseling by physician 09:40:21 CDT CPT-55886 Havrix Intramuscular Suspension 720 EL U /0.5ML 09:40:21 CDT CPT-J2930 Solu Medrol 125 mg (Methyl Prednisolone Sodium Succinate) 09:43:26 CDT CPT-69215 Abx/Therapy Injection 09:43:26 CDT CPT-J2930 Solu Medrol 125 mg (Methyl Prednisolone Sodium Succinate) 09:05:55 CDT CPT-63908 Abx/Therapy Injection 09:05:55 CDT CPT-61881 Venipuncture Draw Fee 14:01:33 CDT CPT-47759 EKG Trac and Interp 11:22:04 CDT CPT-58697 Venipuncture Draw Fee 10:53:35 CDT CPT-J2930 Solu Medrol 125 mg (Methyl Prednisolone Sodium Succinate) 09:29:26 CDT CPT-54151 Abx/Therapy Injection 09:29:26 CDT CPT-Cryo Cryotherapy 16:51:37 BUTTON BRADDER
--- OUTSIDE RECORDS SUMMARY | 2019-07-22 19:31 | XMS REPORT | Clinical Summary ---
Author Author Yovanny, Clarisa Christopher Organization [facility] Address Unknown Phone Unavailable Allergies, Adverse Reactions, [...] Varghese MD Depressive disorder, not elsewhere classified Pharyngitis-Acute ICD-462 Inactive Adrián leavitt MD Medication List Medication Instructions Start Date Stop Date Generic Name [facility] Status Provider Patient Instruction CITALOPRAM HYDROBROMIDE 20 MG ORAL TABS take 1 tab po qday for depresion and anxiety. CITALOPRAM HYDROBROMIDE 82347949562 Active Adrián Varghese MD Active ULTRAM 50 MG TAB take 1 tab po q 6 hrs prn headache pain TRAMADOL HCL 95477261622 No Longer Active Adrián Varghese MD Acti ve CLINDAMYCIN PHOSPHATE 2 % CREA apply cream to acne BID prn 06/14 CLINDAMYCIN PHOSPHATE 42504065778 No Longer Active Adrián Joseph Active MINOCYCLINE HCL 100 MG CAPS take one po BID MINOCYCLINE HCL 71284375998 No Longer Active Adrián Varghese MD Acti ve TRI-SPRINTEC 0.18/0.215/0.25 MG-35 MCG TABS 1 po qd as directed 201 07/04/00 NORGESTIM-ETH ESTRAD TRIPHASIC 88377876837 Active Adrián Varghese MD Active ZITHROMAX 250 MG TAB 2 po today, then 1 po q days 2-5 AZITHROMYCIN 24814653398 No Longer Active Adrián Varghese MD Acti ve ZITHROMAX 250 MG TAB 2 po today, then 1 po q days 2-5 AZITHROMYCIN 47149606914 No Longer Active Adrián Varghese MD Acti ve PREDNISONE 20 MG TAB 2 tabs daily for 3 days, 1 t ab daily for 3 days, 1/2 tab daily for 2 days PREDNISONE 83617403367 No Longer Active Adrián Varghese MD Active ZANTAC 75 75 MG TABS take 1 po BID RANITIDINE H CL 21259110099 No Longer Active Uriel BOYD Active BENZACLIN 1-5 % GEL apply to skin BID prn for acne 201 05/05/14 CLINDAMYCIN PHOS-BENZOYL PEROX 87651574385 No Longer Active Uriel BOYD Active BENZACLIN 1-5 % GEL apply to skin BID prn for acne 201 05/05/14 BENZACLIN 1-5 % GEL 443044 CLINDAMYCIN PHOS-BENZOYL PEROX Inactive MINOCYCLINE HCL 100 MG CAPS take one po BID MINOCYCLINE HCL 100 MG CAPS 584025 MINOCYCLINE HCL Inactive CLINDAMYCIN PHOSPHATE 2 % CREA apply cream to acne BID prn 06/14 CLINDAMYCIN PHOSPHATE 2 % CREA 500203 CLINDAMYCIN PHOSP HATE Inactive ULTRAM 50 MG TAB take 1 tab po q 6 hrs prn headache pain ULTRAM 50 MG TAB 484950 TRAMADOL HCL Inactive ZANTAC 75 75 MG TABS take 1 po BID ZANTAC 75 75 MG TABS 510258 RANITIDINE HCL Inactive PREDNISONE 20 MG TAB 2 tabs daily for 3 days, 1 t ab daily for 3 days, 1/2 tab daily for 2 days PREDNISONE 20 MG TAB 553331 PREDNISON E Inactive ZITHROMAX 250 MG TAB 2 po today, then 1 po q days 2-5 ZITHROMAX 250 MG TAB 0979825 AZITHROMYCIN Inactive ZITHROMAX 250 MG TAB 2 po today, then 1 po q days 2-5 ZITHROMAX 250 MG TAB 9052074 AZITHROMYCIN Inactive Immunizations Vaccine Administration Date Value [...] 142-424 Encounters Code Encounter Date Provider Facility CPT-08658 Level 4 Est. Patient 13:54:09 CDT Adrián dyson MD [facility]-12166 Level 3 Est. Patient 09:22:14 CDT Adrián dyson MD [facility]-51555 Level 3 Est. Patient 08:59:31 CDT Adrián dyson MD [facility]-60550 Level 3 Est. Patient 11:58:31 CDT Adrián dyson MD [facility]-22075 Level 3 Est. Patient 09:06:35 CDT Adrián dyson MD [facility]-78464 Level 3 Est. Patient 09:18:45 CDT Adrián dyson MD [facility]-91842 Level 3 Est. Patient 09:13:22 CDT Adrián dyson MD [facility]-80424 Level 3 Est. 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 Patient 14:00:53 CDT Uriel bhatia [facility]-91459 Level 3 Est. Patient 20:00:09 CDT Terry jenkins DO [facility]-42376 Level 3 Est. Patient 08:45:08 CDT Uriel bhatia [facility]-52108 Level 3 Est. Patient 09:09:26 CDT Uriel bhatia [facility]-67429 Level 3 Est. Patient 16:32:31 CDT Adrián dyson MD [facility]-23525 Level 3 Est. Patient 09:35:27 [employer]ING [employer] Norman fuentes [facility]-66722 Level 2 Est. Patient 16:51:37 LINING [employer]S SE[employer]ER Adrián dyson MD [facility] CPT-19139 Level 3 Est. Patient 10:00:11 LINING PARTS SEWER Ace Arriaza MD [facility] Procedures Code Procedure Name Date Entry Date Standard Desc ription CPT-64080 First Vx - Ix admin via ID I M or jet injects without counseling by physician 16:04:17 LINING [employer]S [employer] CPT-60517 Gardasil 9 Intramuscular Suspension 1 6:04:17 LINING [employer] CPT-56061 Venipuncture Draw Fee 09:40:26 CDT CPT-93788 [place] [facility] - LAB USE ONLY 09:40:26 CDT 11/30 CPT-57334 CBC with Diff - LAB USE ONLY 09:40:26 CDT 2 CPT-71995 Addl Vx - Ix admin via ID IM or jet injects without counseling by physician 09:40:21 CDT CPT-05941 Menactra Intramuscular Injectable 09:40:21 CDT CPT-50454 Addl Vx - Ix admin via ID IM or jet injects without counseling by physician 09:40:21 CDT CPT-43615 Gardasil 9 Intramuscular Suspension 0 9:40:21 CDT CPT-47311 First Vx - Ix admin via ID I M or jet injects without counseling by physician 09:40:21 CDT CPT-87390 Havrix Intramuscular Suspension 720 EL U /0.5ML 09:40:21 CDT CPT-J2930 Solu Medrol 125 mg (Methyl Prednisolone Sodium Succinate) 09:43:26 CDT CPT-60984 Abx/Therapy Injection 09:43:26 CDT CPT-J2930 Solu Medrol 125 mg (Methyl Prednisolone Sodium Succinate) 09:05:55 CDT CPT-73915 Abx/Therapy Injection 09:05:55 CDT CPT-13569 Venipuncture Draw Fee 14:01:33 CDT CPT-00250 EKG Trac and Interp 11:22:04 CDT CPT-63501 Venipuncture Draw Fee 10:53:35 CDT CPT-J2930 Solu Medrol 125 mg (Methyl Prednisolone Sodium Succinate) 09:29:26 CDT CPT-47875 Abx/Therapy Injection 09:29:26 CDT CPT-Cryo Cryotherapy 16:51:37 LINING PARTS SEWER
--- OUTSIDE RECORDS SUMMARY | 2019-07-22 19:32 | XMS REPORT | Clinical Summary ---
Author Author Yovanny, Clarisa Christopher Organization [facility] Address Unknown Phone Unavailable Allergies, Adverse [...] Q 6 HRS PRN HEADACHE TRAMADOL HCL 48590612741 Active Adrián Varghese MD Active CYANOCOBALAMIN 1000 MCG/ML INJ SOLN 1 injection weekly for 1 month, than 1 a month for 2 months. recheck lab CYANOCOBALAMIN 55038515180 Active Samreen Cristo Active CITALOPRAM HYDROBROMIDE 20 MG ORAL TABS take 1 tab po qday for depresion and anxiety. CITALOPRAM HYDROBROMIDE 03464503454 Active Adrián Varghese MD Active ULTRAM 50 MG TAB take 1 tab po q 6 hrs prn headache pain TRAMADOL HCL 10406911194 No Longer Active Adrián Varghese MD Acti ve CLINDAMYCIN PHOSPHATE 2 % CREA apply cream to acne BID prn 06/14 CLINDAMYCIN PHOSPHATE 36282228616 No Longer Active Adrián Joseph Active MINOCYCLINE HCL 100 MG CAPS take one po BID MINOCYCLINE HCL 45111816260 No Longer Active Adrián Varghese MD Acti ve TRI-SPRINTEC 0.18/0.215/0.25 MG-35 MCG TABS 1 po qd as directed 201 07/04/00 NORGESTIM-ETH ESTRAD TRIPHASIC 60006065291 Active Adrián Varghese MD Active ZITHROMAX 250 MG TAB 2 po today, then 1 po q days 2-5 AZITHROMYCIN 98155320972 No Longer Active Adrián Varghese MD Acti ve ZITHROMAX 250 MG TAB 2 po today, then 1 po q days 2-5 AZITHROMYCIN 73175494244 No Longer Active Adrián Varghese MD Acti ve PREDNISONE 20 MG TAB 2 tabs daily for 3 days, 1 t ab daily for 3 days, 1/2 tab daily for 2 days PREDNISONE 56753975913 No Longer Active Adrián Varghese MD Active ZANTAC 75 75 MG TABS take 1 po BID RANITIDINE H CL 62352200637 No Longer Active Uriel BOYD Active BENZACLIN 1-5 % GEL apply to skin BID prn for acne 201 05/05/14 CLINDAMYCIN PHOS-BENZOYL PEROX 51566209850 No Longer Active Uriel BOYD Active BENZACLIN 1-5 % GEL apply to skin BID prn for acne 201 05/05/14 BENZACLIN 1-5 % GEL 021048 CLINDAMYCIN PHOS-BENZOYL PEROX Inactive MINOCYCLINE HCL 100 MG CAPS take one po BID MINOCYCLINE HCL 100 MG CAPS 007781 MINOCYCLINE HCL Inactive CLINDAMYCIN PHOSPHATE 2 % CREA apply cream to acne BID prn 06/14 CLINDAMYCIN PHOSPHATE 2 % CREA 599419 CLINDAMYCIN PHOSP HATE Inactive ULTRAM 50 MG TAB take 1 tab po q 6 hrs prn headache pain ULTRAM 50 MG TAB 001414 TRAMADOL HCL Inactive ZANTAC 75 75 MG TABS take 1 po BID ZANTAC 75 75 MG TABS 095482 RANITIDINE HCL Inactive PREDNISONE 20 MG TAB 2 tabs daily for 3 days, 1 t ab daily for 3 days, 1/2 tab daily for 2 days PREDNISONE 20 MG TAB 588517 PREDNISON E Inactive ZITHROMAX 250 MG TAB 2 po today, then 1 po q days 2-5 ZITHROMAX 250 MG TAB 7715417 AZITHROMYCIN Inactive ZITHROMAX 250 MG TAB 2 po today, then 1 po q days 2-5 ZITHROMAX 250 MG TAB 4823397 AZITHROMYCIN Inactive Immunizations Vaccine Administration Date Value [...] 142-424 Encounters Code Encounter Date Provider Facility CPT-81799 Level 4 Est. Patient 13:54:09 CDT Adrián dyson MD [facility] CPT-60352 Level 3 Est. Patient 09:22:14 CDT Adrián dyson MD [facility]-58124 Level 3 Est. Patient 08:59:31 CDT Adrián dyson MD [facility]-20470 Level 3 Est. Patient 11:58:31 CDT Adrián dyson MD [facility] CPT-64925 Level 3 Est. Patient 09:06:35 CDT Adrián dyson MD [facility] CPT-82252 Level 3 Est. Patient 09:18:45 CDT Adrián dyson MD [facility] CPT-38542 Level 3 Est. Patient 09:13:22 CDT Adrián dyson MD [facility] CPT-55127 Level 3 Est. 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 Patient 14:00:53 CDT Uriel bhatia [facility] CPT-01254 Level 3 Est. Patient 20:00:09 CDT Terry jenkins DO [facility] CPT-11800 Level 3 Est. Patient 08:45:08 CDT Uriel bhatia [facility] CPT-01303 Level 3 Est. Patient 09:09:26 CDT Richcristian Ramirezclarissa bhatia [facility] CPT-62163 Level 3 Est. Patient 16:32:31 CDT Adrián dyson MD [facility] CPT-60812 Level 3 Est. Patient 09:35:27 BOARD MEMBER Norman Aguilararnulfo BOYD [facility] CPT-75355 Level 2 Est. Patient 16:51:37 BOARD MEMBER Adrián dyson MD [facility] CPT-83179 Level 3 Est. Patient 10:00:11 BOARD MEMBER Ace Arriaza MD [facility] Procedures Code Procedure Name Date Entry Date Standard Desc ription CPT-J3420 Vitamin B12 1000mcg (Cyanocobalamin) 15:22:47 CDT CPT-45265 Abx/Therapy Injection 15:22:47 CDT CPT-J3420 Vitamin B12 1000mcg (Cyanocobalamin) 17:00:35 CDT CPT-29480 Abx/Therapy Injection 17:00:35 CDT CPT-17431 First Vx - Ix admin via ID I M or jet injects without counseling by physician 16:04:17 BOARD MEMBER CPT-86335 Gardasil 9 Intramuscular Suspension 1 6:04:17 BOARD MEMBER CPT-91378 Venipuncture Draw Fee 09:40:26 CDT CPT-41447 [place] [facility] - LAB USE ONLY 09:40:26 CDT 11/30 CPT-93263 CBC with Diff - LAB USE ONLY 09:40:26 CDT 2 CPT-91156 Addl Vx - Ix admin via ID IM or jet injects without counseling by physician 09:40:21 CDT CPT-48754 Menactra Intramuscular Injectable 09:40:21 CDT CPT-63895 Addl Vx - Ix admin via ID IM or jet injects without counseling by physician 09:40:21 CDT CPT-78217 Gardasil 9 Intramuscular Suspension 0 9:40:21 CDT CPT-20683 First Vx - Ix admin via ID I M or jet injects without counseling by physician 09:40:21 CDT CPT-16055 Havrix Intramuscular Suspension 720 EL U /0.5ML 09:40:21 CDT CPT-J2930 Solu Medrol 125 mg (Methyl Prednisolone Sodium Succinate) 09:43:26 CDT CPT-50225 Abx/Therapy Injection 09:43:26 CDT CPT-J2930 Solu Medrol 125 mg (Methyl Prednisolone Sodium Succinate) 09:05:55 CDT CPT-59143 Abx/Therapy Injection 09:05:55 CDT CPT-91295 Venipuncture Draw Fee 14:01:33 CDT CPT-80639 EKG Trac and Interp 11:22:04 CDT CPT-65107 Venipuncture Draw Fee 10:53:35 CDT CPT-J2930 Solu Medrol 125 mg (Methyl Prednisolone Sodium Succinate) 09:29:26 CDT CPT-18489 Abx/Therapy Injection 09:29:26 CDT CPT-Cryo Cryotherapy 16:51:37 BOARD MEMBER
--- OUTSIDE RECORDS SUMMARY | 2019-07-22 19:32 | XMS REPORT | Clinical Summary ---
[...] and related conditions Pharyngitis-Acute ICD-462 Inactive Adrián leaivtt MD Medication List Medication Instructions Start Date Stop Date Generic Name NDC Status Provider Patient Instruction PROZAC 10 MG ORAL CAPSULE Take 1 tab daily for 1 week. Then increase to 20mg daily. FLUOXETINE HCL 86348392564 No Longer Active Yulissa Gibbs APRN Active PROZAC 20 MG ORAL CAPSULE Take 1 tab daily FLUO XETINE HCL 74305857202 Active Shannan Gibbs APRN Active BUSPIRONE HCL 7.5 MG ORAL TABLET 1 pill twice daily, for anxiety 20 14/11/05 BUSPIRONE HCL 16764130898 Active Shannan Gibbs APRN Active CITALOPRAM HYDROBROMIDE 20 MG ORAL TABLET take 1 tab p o qday for depresion and anxiety. CITALOPRAM HYDROBROMIDE 03248630624 No L onger Active Shannan Gibbs APRN Active CYANOCOBALAMIN 1000 MCG/ML INJECTION SOLUTION 1 inject ion weekly for 1 month, than 1 a month for 2 months. recheck lab CYANOCO BALAMIN 61216366142 No Longer Active Shannan Gibbs APRN Active ULTRAM 50 MG ORAL TABLET 1 TAB PO Q 6 HRS PRN HEADACHE TRAMADOL HCL 68124690707 Active Adrián Varghese MD Active ULTRAM 50 MG ORAL TABLET take 1 tab po q 6 hrs prn headache pain TRAMADOL HCL 42378708250 No Longer Active Adrián Varghese MD Active CLINDAMYCIN PHOSPHATE 2 % VAGINAL CREAM apply cream to acne BID prn CLINDAMYCIN PHOSPHATE 26965731737 No Longer Active Adrián dyson MD Active MINOCYCLINE HCL 100 MG ORAL CAPSULE take one po BID 20 13/11/25 MINOCYCLINE HCL 39543516036 No Longer Active Adrián Varghese MD A ctive TRI-SPRINTEC 0.18/0.215/0.25 MG-35 MCG ORAL TABLET 1 po qd a s directed NORGESTIM-ETH ESTRAD TRIPHASIC 52168915690 Active Adrián Varghese MD Active ZITHROMAX 250 MG ORAL TABLET 2 po today, then 1 po q days 2-5 20 12/07/06 AZITHROMYCIN 17101949621 No Longer Active Adrián Varghese MD Active ZITHROMAX 250 MG ORAL TABLET 2 po today, then 1 po q days 2-5 20 11/06/16 AZITHROMYCIN 40449404476 No Longer Active Adrián Varghese MD Active PREDNISONE 20 MG ORAL TABLET 2 tabs daily for 3 days, 1 tab daily for 3 days, 1/2 tab daily for 2 days PREDNISONE 13048506767 No Longer Active Adrián Varghese MD Active ZANTAC 75 75 MG ORAL TABLET take 1 po BID RANIT IDINE HCL 39960477067 No Longer Active Uriel BOYD Active BENZACLIN 1-5 % EXTERNAL GEL apply to skin BID prn for acne 2012 CLINDAMYCIN PHOS-BENZOYL PEROX 61951553592 No Longer Active Uriel BOYD Active BENZACLIN 1-5 % EXTERNAL GEL apply to skin BID prn for acne 2012 BENZACLIN 1-5 % EXTERNAL GEL 805812 CLINDAMYCIN PHOS-BE NZOYL PEROX Inactive MINOCYCLINE HCL 100 MG ORAL CAPSULE take one po BID 13/11/25 MINOCYCLINE HCL 100 MG ORAL CAPSULE 308511 MINOCYCLINE HCL Inac tive CLINDAMYCIN PHOSPHATE 2 % VAGINAL CREAM apply cream to acne BID prn CLINDAMYCIN PHOSPHATE 2 % VAGINAL CREAM 839992 CLINDAMY ANGELIA PHOSPHATE Inactive ULTRAM 50 MG ORAL TABLET take 1 tab po q 6 hrs prn headache pain ULTRAM 50 MG ORAL TABLET 021072 TRAMADOL HCL Inactiv e CYANOCOBALAMIN 1000 MCG/ML INJECTION SOLUTION 1 inject ion weekly for 1 month, than 1 a month for 2 months. recheck lab CYANOCOBALAMIN 1000 MCG/ML INJECTION SOLUTION 253114 CYANOCOBALAMIN Inactive CITALOPRAM HYDROBROMIDE 20 MG ORAL TABLET take 1 tab p o qday for depresion and anxiety. CITALOPRAM HYDROBROMIDE 20 MG ORAL TABLET 467881 CITALOPRAM HYDROBROMIDE Inactive PROZAC 10 MG ORAL CAPSULE Take 1 tab daily for 1 week. Then increase to 20mg daily. PROZAC 10 MG ORAL CAPSULE 304988 FLUOXETINE HCL Inactive ZANTAC 75 75 MG ORAL TABLET take 1 po BID ZANTAC 75 75 MG ORAL TABLET 019327 RANITIDINE HCL Inactive PREDNISONE 20 MG ORAL TABLET 2 tabs daily for 3 days, 1 tab daily for 3 days, 1/2 tab daily for 2 days PREDNISONE 20 MG ORAL T ABLET 986536 PREDNISONE Inactive ZITHROMAX 250 MG ORAL TABLET 2 po today, then 1 po q days 2-5 20 11/06/16 ZITHROMAX 250 MG ORAL TABLET 488741 AZITHROMYCIN [place] ctive ZITHROMAX 250 MG ORAL TABLET 2 po today, then 1 po q days 2-5 20 12/07/06 ZITHROMAX 250 MG ORAL TABLET 037888 AZITHROMYCIN [place] ctive Immunizations Vaccine Administration Date [...] Value Unit Range Description blood pressure, diastolic 82 mm[Hg] BP jones [...] Value Unit Range Description Lab Report: Chlamydia/GC [facility]TIM[facility]/83377 - Lab chlamydia DNA probe NOT DETECTED NOT DETECTED Lab Report: Chlamydia/GC [facility]TIM[facility]/84731 - Microbiology Neisseria gonorrhoeae DNA probe NOT DETECTED NO T DETECTED Lab Report: Comp. Metabolic Panel - Chem istry sodium, serum 139 mmol/L 297-704 5737/09/06 carbon dioxide, venous blood 25.3 mmol/L 21.0-32 [...] 5.0-8.5 Encounters Code Encounter Date Provider Facility CPT-99214 Level 3 Est. 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 Patient 11:10:55 CDT Hubert [facility] CPT-31580 Level 4 Est. Patient 14:07:40 CDT Hubert [facility] CPT-44366 Level 4 Est. Patient 13:54:09 CDT Adrián dyson MD [facility] CPT-69924 Level 3 Est. Patient 09:22:14 CDT Adrián dyson MD [facility] CPT-89766 Level 3 Est. Patient 08:59:31 CDT Adrián dyson MD [facility] CPT-69503 Level 3 Est. Patient 11:58:31 CDT Adrián dyson MD [facility] CPT-00689 Level 3 Est. Patient 09:06:35 CDT dArián dyson MD [facility] CPT-13763 Level 3 Est. Patient 09:18:45 CDT Adrián dyson MD [facility] CPT-61129 Level 3 Est. Patient 09:13:22 CDT Adrián dyson MD [facility] CPT-10330 Level 3 Est. Patient 18:04:31 DEAL[employer]IP GENERAL MANAGER Adrián dyson MD [facility] CPT-57977 Level 4 Est. Patient 14:00:53 CDT Uriel bhatia [facility] CPT-96647 Level 3 Est. Patient 20:00:09 CDT Terry jenkins DO [facility] CPT-41916 Level 3 Est. Patient 08:45:08 CDT Uriel bhatia [facility] CPT-84845 Level 3 Est. Patient 09:09:26 CDT Uriel bhatia [facility] CPT-28762 Level 3 Est. Patient 16:32:31 CDT Adrián dyson MD [facility] CPT-64038 Level 3 Est. Patient 09:35:27 DEAL[employer]IP GENERAL MANAGER Norman fuentes [facility] CPT-39498 Level 2 Est. Patient 16:51:37 DEAL[employer]IP GENERAL MANAGER Adrián dyson MD [facility] CPT-73787 Level 3 Est. Patient 10:00:11 DEAL[employer]IP GENERAL MANAGER Ace Arriaza MD [facility] Procedures Code Procedure Name Date Entry Date Standard Desc ription CPT-30306 First Vx - Ix admin via ID I M or jet injects without counseling by physician 14:18:02 CDT CPT-62730 Gardasil 9 Intramuscular Suspension 1 4:18:02 CDT CPT-J3420 Vitamin B12 1000mcg (Cyanocobalamin) 16:30:23 CDT CPT-01404 Abx/Therapy Injection 16:30:23 CDT CPT-J3420 Vitamin B12 1000mcg (Cyanocobalamin) 16:09:42 CDT CPT-52247 Abx/Therapy Injection 16:09:42 CDT CPT-J3420 Vitamin B12 1000mcg (Cyanocobalamin) 15:22:47 CDT CPT-72191 Abx/Therapy Injection 15:22:47 CDT CPT-J3420 Vitamin B12 1000mcg (Cyanocobalamin) 17:00:35 CDT CPT-90611 Abx/Therapy Injection 17:00:35 CDT CPT-30624 First Vx - Ix admin via ID I M or jet injects without counseling by physician 16:04:17 [employer] GENER[employer] MA[employer]GER CPT-36369 Gardasil 9 Intramuscular Suspension 1 6:04:17 [employer]GER CPT-07397 Venipuncture Draw Fee 09:40:26 CDT CPT-51667 [facility] - LAB USE ONLY 09:40:26 CDT 11/30 CPT-04061 CBC with Diff - LAB USE ONLY 09:40:26 CDT 2 CPT-35037 Addl Vx - Ix admin via ID IM or jet injects without counseling by physician 09:40:21 CDT CPT-38251 Menactra Intramuscular Injectable 09:40:21 CDT CPT-77654 Addl Vx - Ix admin via ID IM or jet injects without counseling by physician 09:40:21 CDT CPT-57891 Gardasil 9 Intramuscular Suspension 0 9:40:21 CDT CPT-43564 First Vx - Ix admin via ID I M or jet injects without counseling by physician 09:40:21 CDT CPT-66393 Havrix Intramuscular Suspension 720 EL U /0.5ML 09:40:21 CDT CPT-J2930 Solu Medrol 125 mg (Methyl Prednisolone Sodium Succinate) 09:43:26 CDT CPT-61792 Abx/Therapy Injection 09:43:26 CDT CPT-J2930 Solu Medrol 125 mg (Methyl Prednisolone Sodium Succinate) 09:05:55 CDT CPT-37548 Abx/Therapy Injection 09:05:55 CDT CPT-29840 Venipuncture Draw Fee 14:01:33 CDT CPT-31851 EKG Trac and Interp 11:22:04 CDT CPT-80637 Venipuncture Draw Fee 10:53:35 CDT CPT-J2930 Solu Medrol 125 mg (Methyl Prednisolone Sodium Succinate) 09:29:26 CDT CPT-47371 Abx/Therapy Injection 09:29:26 CDT CPT-Cryo Cryotherapy 16:51:37 DEAL[employer] GENERAL MANAGER
--- OUTSIDE RECORDS SUMMARY | 2019-07-22 19:32 | XMS REPORT | Clinical Summary ---
Author Author Yovanny, Clarisa Christopher Organization [facility] Address Unknown Phone Unavailable Allergies, Adverse [...] Q 6 HRS PRN HEADACHE TRAMADOL HCL 39030280532 Active Adrián Varghese MD Active CYANOCOBALAMIN 1000 MCG/ML INJ SOLN 1 injection weekly for 1 month, than 1 a month for 2 months. recheck lab CYANOCOBALAMIN 53726517777 Active Samreen Cristo Active CITALOPRAM HYDROBROMIDE 20 MG ORAL TABS take 1 tab po qday for depresion and anxiety. CITALOPRAM HYDROBROMIDE 43650962375 Active Adrián Varghese MD Active ULTRAM 50 MG TAB take 1 tab po q 6 hrs prn headache pain TRAMADOL HCL 40014571439 No Longer Active Adrián Varghese MD Acti ve CLINDAMYCIN PHOSPHATE 2 % CREA apply cream to acne BID prn 06/14 CLINDAMYCIN PHOSPHATE 96349012266 No Longer Active Adrián Joseph Active MINOCYCLINE HCL 100 MG CAPS take one po BID MINOCYCLINE HCL 71843167463 No Longer Active Adrián Varghese MD Acti ve TRI-SPRINTEC 0.18/0.215/0.25 MG-35 MCG TABS 1 po qd as directed 201 07/04/00 NORGESTIM-ETH ESTRAD TRIPHASIC 35469216936 Active Adrián Varghese MD Active ZITHROMAX 250 MG TAB 2 po today, then 1 po q days 2-5 AZITHROMYCIN 32784336312 No Longer Active Adrián Varghese MD Acti ve ZITHROMAX 250 MG TAB 2 po today, then 1 po q days 2-5 AZITHROMYCIN 15301262494 No Longer Active Adrián Varghese MD Acti ve PREDNISONE 20 MG TAB 2 tabs daily for 3 days, 1 t ab daily for 3 days, 1/2 tab daily for 2 days PREDNISONE 69068978255 No Longer Active Adrián Varghese MD Active ZANTAC 75 75 MG TABS take 1 po BID RANITIDINE H CL 63091027191 No Longer Active Uriel BOYD Active BENZACLIN 1-5 % GEL apply to skin BID prn for acne 201 05/05/14 CLINDAMYCIN PHOS-BENZOYL PEROX 65967650673 No Longer Active Uriel BOYD Active BENZACLIN 1-5 % GEL apply to skin BID prn for acne 201 05/05/14 BENZACLIN 1-5 % GEL 923034 CLINDAMYCIN PHOS-BENZOYL PEROX Inactive MINOCYCLINE HCL 100 MG CAPS take one po BID MINOCYCLINE HCL 100 MG CAPS 356075 MINOCYCLINE HCL Inactive CLINDAMYCIN PHOSPHATE 2 % CREA apply cream to acne BID prn 06/14 CLINDAMYCIN PHOSPHATE 2 % CREA 329248 CLINDAMYCIN PHOSP HATE Inactive ULTRAM 50 MG TAB take 1 tab po q 6 hrs prn headache pain ULTRAM 50 MG TAB 122953 TRAMADOL HCL Inactive ZANTAC 75 75 MG TABS take 1 po BID ZANTAC 75 75 MG TABS 718570 RANITIDINE HCL Inactive PREDNISONE 20 MG TAB 2 tabs daily for 3 days, 1 t ab daily for 3 days, 1/2 tab daily for 2 days PREDNISONE 20 MG TAB 119406 PREDNISON E Inactive ZITHROMAX 250 MG TAB 2 po today, then 1 po q days 2-5 ZITHROMAX 250 MG TAB 1866763 AZITHROMYCIN Inactive ZITHROMAX 250 MG TAB 2 po today, then 1 po q days 2-5 ZITHROMAX 250 MG TAB 6359739 AZITHROMYCIN Inactive Immunizations Vaccine Administration Date Value [...] [phone] Encounters Code Encounter Date Provider Facility CPT-84870 Level 4 Est. Patient 13:54:09 CDT Adrián dyson MD [facility] CPT-95243 Level 3 Est. Patient 09:22:14 CDT Adrián dyson MD [facility]-19568 Level 3 Est. Patient 08:59:31 CDT Adrián dyson MD [facility]-38457 Level 3 Est. Patient 11:58:31 CDT Adrián dyson MD [facility] CPT-99687 Level 3 Est. Patient 09:06:35 CDT Adrián dyson MD [facility] CPT-88238 Level 3 Est. Patient 09:18:45 CDT Adrián dyson MD [facility] CPT-17743 Level 3 Est. Patient 09:13:22 CDT Adrián dyson MD [facility] CPT-23220 Level 3 Est. 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 Patient 14:00:53 CDT Uriel bhatia [facility] CPT-84853 Level 3 Est. Patient 20:00:09 CDT Terry jenkins DO [facility] CPT-90102 Level 3 Est. Patient 08:45:08 CDT Uriel bhatia [facility] CPT-32295 Level 3 Est. Patient 09:09:26 CDT Uriel Ramirezclarissa bhatia [facility] CPT-12264 Level 3 Est. Patient 16:32:31 CDT Adrián dyson MD [facility] CPT-44184 Level 3 Est. Patient 09:35:27 SENIOR BACKUP ADMINISTRATOR Norman Aguilararnulfo BOYD [facility] CPT-70099 Level 2 Est. Patient 16:51:37 SENIOR BACKUP ADMINISTRATOR Adrián dyson MD [facility] CPT-06111 Level 3 Est. Patient 10:00:11 SENIOR BACKUP ADMINISTRATOR Ace Arriaza MD [facility] Procedures Code Procedure Name Date Entry Date Standard Desc ription CPT-J3420 Vitamin B12 1000mcg (Cyanocobalamin) 16:30:23 CDT CPT-75460 Abx/Therapy Injection 16:30:23 CDT CPT-J3420 Vitamin B12 1000mcg (Cyanocobalamin) 16:09:42 CDT CPT-03475 Abx/Therapy Injection 16:09:42 CDT CPT-J3420 Vitamin B12 1000mcg (Cyanocobalamin) 15:22:47 CDT CPT-99030 Abx/Therapy Injection 15:22:47 CDT CPT-J3420 Vitamin B12 1000mcg (Cyanocobalamin) 17:00:35 CDT CPT-81318 Abx/Therapy Injection 17:00:35 CDT CPT-06146 First Vx - Ix admin via ID I M or jet injects without counseling by physician 16:04:17 SENIOR BACKUP ADMINISTRATOR CPT-94201 Gardasil 9 Intramuscular Suspension 1 6:04:17 SENIOR BACKUP ADMINISTRATOR CPT-71026 Venipuncture Draw Fee 09:40:26 CDT CPT-32232 [facility] - LAB USE ONLY 09:40:26 CDT 11/30 CPT-56365 CBC with Diff - LAB USE ONLY 09:40:26 CDT 2 CPT-49468 Addl Vx - Ix admin via ID IM or jet injects without counseling by physician 09:40:21 CDT CPT-00811 Menactra Intramuscular Injectable 09:40:21 CDT CPT-25488 Addl Vx - Ix admin via ID IM or jet injects without counseling by physician 09:40:21 CDT CPT-59455 Gardasil 9 Intramuscular Suspension 0 9:40:21 CDT CPT-68152 First Vx - Ix admin via ID I M or jet injects without counseling by physician 09:40:21 CDT CPT-84500 Havrix Intramuscular Suspension 720 EL U /0.5ML 09:40:21 CDT CPT-J2930 Solu Medrol 125 mg (Methyl Prednisolone Sodium Succinate) 09:43:26 CDT CPT-78774 Abx/Therapy Injection 09:43:26 CDT CPT-J2930 Solu Medrol 125 mg (Methyl Prednisolone Sodium Succinate) 09:05:55 CDT CPT-99497 Abx/Therapy Injection 09:05:55 CDT CPT-05233 Venipuncture Draw Fee 14:01:33 CDT CPT-69367 EKG Trac and Interp 11:22:04 CDT CPT-93646 Venipuncture Draw Fee 10:53:35 CDT CPT-J2930 Solu Medrol 125 mg (Methyl Prednisolone Sodium Succinate) 09:29:26 CDT CPT-78489 Abx/Therapy Injection 09:29:26 CDT CPT-Cryo Cryotherapy 16:51:37 SENIOR BACKUP ADMINISTRATOR
--- OUTSIDE RECORDS SUMMARY | 2019-07-22 19:32 | XMS REPORT | Clinical Summary ---
Author Author Yovanny, Clarisa Christopher Organization [facility] Address Unknown Phone Unavailable Allergies, Adverse [...] Then increase to 20mg daily. FLUOXETINE HCL 62307791384 No Longer Active Yulissa Gibbs APRN Active PROZAC 20 MG ORAL CAPSULE Take 1 tab daily FLUO XETINE HCL 16277947651 Active Shannan Gibbs APRN Active BUSPIRONE HCL 7.5 MG ORAL TABLET 1 pill twice daily, for anxiety 20 14/11/05 BUSPIRONE HCL 22181353597 Active Shannan Gibbs APRN Active CITALOPRAM HYDROBROMIDE 20 MG ORAL TABLET take 1 tab p o qday for depresion and anxiety. CITALOPRAM HYDROBROMIDE 62364245127 No L onger Active Shannan Gibbs APRN Active CYANOCOBALAMIN 1000 MCG/ML INJECTION SOLUTION 1 inject ion weekly for 1 month, than 1 a month for 2 months. recheck lab CYANOCO BALAMIN 64152490345 No Longer Active Shannan Gibbs APRN Active ULTRAM 50 MG ORAL TABLET 1 TAB PO Q 6 HRS PRN HEADACHE TRAMADOL HCL 99718445778 Active Adrián Varghese MD Active ULTRAM 50 MG ORAL TABLET take 1 tab po q 6 hrs prn headache pain TRAMADOL HCL 94506011052 No Longer Active Adrián Varghese MD Active CLINDAMYCIN PHOSPHATE 2 % VAGINAL CREAM apply cream to acne BID prn CLINDAMYCIN PHOSPHATE 48241827572 No Longer Active Adrián dyson MD Active MINOCYCLINE HCL 100 MG ORAL CAPSULE take one po BID 20 13/11/25 MINOCYCLINE HCL 86768225152 No Longer Active Adrián Varghese MD A ctive TRI-SPRINTEC 0.18/0.215/0.25 MG-35 MCG ORAL TABLET 1 po qd a s directed NORGESTIM-ETH ESTRAD TRIPHASIC 74675665265 Active Adrián Varghese MD Active ZITHROMAX 250 MG ORAL TABLET 2 po today, then 1 po q days 2-5 20 12/07/06 AZITHROMYCIN 66698560834 No Longer Active Adrián Varghese MD Active ZITHROMAX 250 MG ORAL TABLET 2 po today, then 1 po q days 2-5 20 11/06/16 AZITHROMYCIN 37537567953 No Longer Active Adrián Varghese MD Active PREDNISONE 20 MG ORAL TABLET 2 tabs daily for 3 days, 1 tab daily for 3 days, 1/2 tab daily for 2 days PREDNISONE 49002516936 No Longer Active Adrián Varghese MD Active ZANTAC 75 75 MG ORAL TABLET take 1 po BID RANIT IDINE HCL 88933779627 No Longer Active Uriel BOYD Active BENZACLIN 1-5 % EXTERNAL GEL apply to skin BID prn for acne 2012 CLINDAMYCIN PHOS-BENZOYL PEROX 85074663780 No Longer Active Uriel BOYD Active BENZACLIN 1-5 % EXTERNAL GEL apply to skin BID prn for acne 2012 BENZACLIN 1-5 % EXTERNAL GEL 390793 CLINDAMYCIN PHOS-BE NZOYL PEROX Inactive MINOCYCLINE HCL 100 MG ORAL CAPSULE take one po BID 13/11/25 MINOCYCLINE HCL 100 MG ORAL CAPSULE 949075 MINOCYCLINE HCL Inac tive CLINDAMYCIN PHOSPHATE 2 % VAGINAL CREAM apply cream to acne BID prn CLINDAMYCIN PHOSPHATE 2 % VAGINAL CREAM 344048 CLINDAMY ANGELIA PHOSPHATE Inactive ULTRAM 50 MG ORAL TABLET take 1 tab po q 6 hrs prn headache pain ULTRAM 50 MG ORAL TABLET 388863 TRAMADOL HCL Inactiv e CYANOCOBALAMIN 1000 MCG/ML INJECTION SOLUTION 1 inject ion weekly for 1 month, than 1 a month for 2 months. recheck lab CYANOCOBALAMIN 1000 MCG/ML INJECTION SOLUTION 589150 CYANOCOBALAMIN Inactive CITALOPRAM HYDROBROMIDE 20 MG ORAL TABLET take 1 tab p o qday for depresion and anxiety. CITALOPRAM HYDROBROMIDE 20 MG ORAL TABLET 119724 CITALOPRAM HYDROBROMIDE Inactive PROZAC 10 MG ORAL CAPSULE Take 1 tab daily for 1 week. Then increase to 20mg daily. PROZAC 10 MG ORAL CAPSULE 526373 FLUOXETINE HCL Inactive ZANTAC 75 75 MG ORAL TABLET take 1 po BID ZANTAC 75 75 MG ORAL TABLET 344227 RANITIDINE HCL Inactive PREDNISONE 20 MG ORAL TABLET 2 tabs daily for 3 days, 1 tab daily for 3 days, 1/2 tab daily for 2 days PREDNISONE 20 MG ORAL T ABLET 223702 PREDNISONE Inactive ZITHROMAX 250 MG ORAL TABLET 2 po today, then 1 po q days 2-5 20 11/06/16 ZITHROMAX 250 MG ORAL TABLET 024217 AZITHROMYCIN [place] ctive ZITHROMAX 250 MG ORAL TABLET 2 po today, then 1 po q days 2-5 20 12/07/06 ZITHROMAX 250 MG ORAL TABLET 341939 AZITHROMYCIN [place] ctive Immunizations Vaccine Administration Date [...] Value Unit Range Description Lab Report: Chlamydia/GC APTIMA/26509 - Lab chlamydia DNA probe NOT DETECTED NOT DETECTED Lab Report: Chlamydia/GC APTIMA/32836 - Microbiology Neisseria gonorrhoeae DNA probe NOT DETECTED NO T DETECTED Lab Report: Comp. Metabolic Panel - Chem istry sodium, serum 141 mmol/L 712-575 2574/11/22 carbon dioxide, venous blood 25.2 mmol/L 21.0-32 .0 potassium, serum 3.8 mmol/L 3.5-5.2 chloride, serum 104 mmol/L 98-107 blood glucose 95 mg/dL 65-110 urea nitrogen, blood 15 mg/dL 7-18 creatinine, serum 0.79 mg/dL 0.60-1.30 alanine aminotransferase (SGPT), serum 28 U/L 10-55 aspartate aminotransferase (SGOT), serum 17 U/L 15-45 calcium, serum 8.9 mg/dL 8.5-10.1 bilirubin, serum, total 0.30 mg/dL 0.20-1.00 sodium, serum 139 mmol/L 199-019 5296/09/06 carbon dioxide, venous blood 25.3 mmol/L 21.0-32 [...] 5.0-8.5 Encounters Code Encounter Date Provider Facility [facility]-18782 Level 3 Est. 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 Patient 11:10:[address] [facility]-27926 Level 4 Est. Patient 14:07:40 CDT [facility]30800 Level 4 Est. Patient 13:54:09 CDT Adrián dyson MD [facility] [place]607 Level 3 Est. Patient 09:22:14 CDT Adrián dyson MD [facility] [place] Level 3 Est. Patient 08:59:31 CDT Adrián dyson MD [facility] [place] Level 3 Est. Patient 11:58:31 CDT Adri[facility]-23176 Level 3 Est. Patient 09:06:35 CDT Adrián dyson MD [facility]-15470 Level 3 Est. Patient 09:18:45 CDT Adrián dyson MD [facility]-08548 Level 3 Est. Patient 09:13:22 CDT Adrián dyson MD [facility]-29707 Level 3 Est. Patient 18:04:31 TE[employer] Adrián dyson MD [id number] Level 4 Est. Patient 14:00:53 CDT Uriel bhatia [facility] CPT-36421 Level 3 Est. Patient 20:00:09 CDT Terry Elisha Sachin jenkins DO [facility] CPT-57506 Level 3 Est. Patient 08:45:08 CDT Uriel bhatia [facility] CPT-10155 Level 3 Est. Patient 09:09:26 CDT Uriel bhatia [facility] CPT-17046 Level 3 Est. Patient 16:32:31 CDT Adrián dyson MD [facility] CPT-80250 Level 3 Est. Patient 09:35:27 TE[employer]ER [employer] Norman fuentes [facility] CPT-34868 Level 2 Est. Patient 16:51:37 TE[employer]ER [employer] Adrián dyson MD [facility] CPT-56663 Level 3 Est. Patient 10:00:11 TE[employer] Ace Arriaza MD [facility] Procedures Code Procedure Name Date Entry Date Standard Desc ription CPT-48399 First Vx - Ix admin via ID I M or jet injects without counseling by physician 14:18:02 CDT CPT-28989 Gardasil 9 Intramuscular Suspension 1 4:18:02 CDT CPT-J3420 Vitamin B12 1000mcg (Cyanocobalamin) 16:30:23 CDT CPT-82790 Abx/Therapy Injection 16:30:23 CDT CPT-J3420 Vitamin B12 1000mcg (Cyanocobalamin) 16:09:42 CDT CPT-77403 Abx/Therapy Injection 16:09:42 CDT CPT-J3420 Vitamin B12 1000mcg (Cyanocobalamin) 15:22:47 CDT CPT-06943 Abx/Therapy Injection 15:22:47 CDT CPT-J3420 Vitamin B12 1000mcg (Cyanocobalamin) 17:00:35 CDT CPT-43209 Abx/Therapy Injection 17:00:35 CDT CPT-91669 First Vx - Ix admin via ID I M or jet injects without counseling by physician 16:04:17 [employer] CPT-70704 Gardasil 9 Intramuscular Suspension 1 6:04:17 [employer] CPT-69806 Venipuncture Draw Fee 09:40:26 CDT CPT-71727 [facility] - LAB USE ONLY 09:40:26 CDT 11/30 CPT-40446 CBC with Diff - LAB USE ONLY 09:40:26 CDT 2 CPT-04728 Addl Vx - Ix admin via ID IM or jet injects without counseling by physician 09:40:21 CDT CPT-43669 Menactra Intramuscular Injectable 09:40:21 CDT CPT-39694 Addl Vx - Ix admin via ID IM or jet injects without counseling by physician 09:40:21 CDT CPT-76201 Gardasil 9 Intramuscular Suspension 0 9:40:21 CDT CPT-83085 First Vx - Ix admin via ID I M or jet injects without counseling by physician 09:40:21 CDT CPT-46175 Havrix Intramuscular Suspension 720 EL U /0.5ML 09:40:21 CDT CPT-J2930 Solu Medrol 125 mg (Methyl Prednisolone Sodium Succinate) 09:43:26 CDT CPT-91158 Abx/Therapy Injection 09:43:26 CDT CPT-J2930 Solu Medrol 125 mg (Methyl Prednisolone Sodium Succinate) 09:05:55 CDT CPT-51466 Abx/Therapy Injection 09:05:55 CDT CPT-06443 Venipuncture Draw Fee 14:01:33 CDT CPT-27176 EKG Trac and Interp 11:22:04 CDT CPT-16773 Venipuncture Draw Fee 10:53:35 CDT CPT-J2930 Solu Medrol 125 mg (Methyl Prednisolone Sodium Succinate) 09:29:26 CDT CPT-60788 Abx/Therapy Injection 09:29:26 CDT CPT-Cryo Cryotherapy 16:51:37 [employer]
--- OUTSIDE RECORDS SUMMARY | 2019-07-22 19:32 | XMS REPORT | Clinical Summary ---
Author Author Yovanny, Clarisa Christopher Organization [facility] Address Unknown Phone Unavailable Allergies, [...] APRN Other atopic dermatitis and related conditions Contraceptive [...] 1 TABLET BY MOUTH DAILY DIRECTED SULFAMETHOXAZOLE-TRIMETHOPRIM [id number] No Longer Active Madelin Hatch MD Active BUSPIRONE HCL 7.5 MG ORAL TABLET PRN BUSPIR ONE HCL 07572398191 Active Madelin Hatch MD Active PROZAC 20 MG ORAL CAPSULE PRN FLUOXETINE HCL 0077 9615665 Active Madelin Hatch MD Active ABSORICA 20 MG ORAL CAPSULE 1 tablet daily ISOT RETINOIN 50440491217 Active Madelin Hatch MD Active ACZONE 5 % EXTERNAL GEL apply once daily to face 5 DAPSONE 78599444942 No Longer Active Madelin Hatch MD Active PROZAC 10 MG ORAL CAPSULE Take 1 tab daily for 1 week. Then increase to 20mg daily. FLUOXETINE HCL 26413314897 No Longer Active Yulissa an Joeyll FIRE REGULATOR Active CITALOPRAM HYDROBROMIDE 20 MG ORAL TABLET take 1 tab p o qday for depresion and anxiety. CITALOPRAM HYDROBROMIDE 44829883215 No L onger Active Shannan Evans FIRE REGULATOR Active CYANOCOBALAMIN 1000 MCG/ML INJECTION SOLUTION 1 inject ion weekly for 1 month, than 1 a month for 2 months. recheck lab CYANOCO BALAMIN 87628124678 No Longer Active Shannan Evans APRN Active ULTRAM 50 MG ORAL TABLET 1 TAB PO Q 6 HRS PRN HEADACHE TRAMADOL HCL 58753157356 Active Adrián Varghese MD Active ULTRAM 50 MG ORAL TABLET take 1 tab po q 6 hrs prn headache pain TRAMADOL HCL 28975422318 No Longer Active Adrián Varghese MD Active CLINDAMYCIN PHOSPHATE 2 % VAGINAL CREAM apply cream to acne BID prn CLINDAMYCIN PHOSPHATE 52697360466 No Longer Active Adrián dyson MD Active MINOCYCLINE HCL 100 MG ORAL CAPSULE take one po BID 20 13/11/25 MINOCYCLINE HCL 85214351252 No Longer Active Adrián Varghese MD A ctive TRI-SPRINTEC 0.18/0.215/0.25 MG-35 MCG ORAL TABLET 1 po qd a s directed NORGESTIM-ETH ESTRAD TRIPHASIC 22828285619 Active Madelin Hatch MD Active ZITHROMAX 250 MG ORAL TABLET 2 po today, then 1 po q days 2-5 20 12/07/06 AZITHROMYCIN 07186110053 No Longer Active Adrián Varghese MD Active ZITHROMAX 250 MG ORAL TABLET 2 po today, then 1 po q days 2-5 20 11/06/16 AZITHROMYCIN 87181448720 No Longer Active Adrián Varghese MD Active PREDNISONE 20 MG ORAL TABLET 2 tabs daily for 3 days, 1 tab daily for 3 days, 1/2 tab daily for 2 days PREDNISONE 97208446781 No Longer Active Adrián Varghese MD Active ZANTAC 75 75 MG ORAL TABLET take 1 po BID RANIT IDINE HCL 89431362987 No Longer Active Uriel BOYD Active BENZACLIN 1-5 % EXTERNAL GEL apply to skin BID prn for acne 2012 CLINDAMYCIN PHOS-BENZOYL PEROX 00473167819 No Longer Active Uriel BOYD Active BENZACLIN 1-5 % EXTERNAL GEL apply to skin BID prn for acne 2012 BENZACLIN 1-5 % EXTERNAL GEL 569103 CLINDAMYCIN PHOS-BE NZOYL PEROX Inactive MINOCYCLINE HCL 100 MG ORAL CAPSULE take one po BID 13/11/25 MINOCYCLINE HCL 100 MG ORAL CAPSULE 527635 MINOCYCLINE HCL Inac tive CLINDAMYCIN PHOSPHATE 2 % VAGINAL CREAM apply cream to acne BID prn CLINDAMYCIN PHOSPHATE 2 % VAGINAL CREAM 366531 CLINDAMY ANGELIA PHOSPHATE Inactive ULTRAM 50 MG ORAL TABLET take 1 tab po q 6 hrs prn headache pain ULTRAM 50 MG ORAL TABLET 178311 TRAMADOL HCL Inactiv e CYANOCOBALAMIN 1000 MCG/ML INJECTION SOLUTION 1 inject ion weekly for 1 month, than 1 a month for 2 months. recheck lab CYANOCOBALAMIN 1000 MCG/ML INJECTION SOLUTION 005705 CYANOCOBALAMIN Inactive CITALOPRAM HYDROBROMIDE 20 MG ORAL TABLET take 1 tab p o qday for depresion and anxiety. CITALOPRAM HYDROBROMIDE 20 MG ORAL TABLET 633768 CITALOPRAM HYDROBROMIDE Inactive PROZAC 10 MG ORAL CAPSULE Take 1 tab daily for 1 week. Then increase to 20mg daily. PROZAC 10 MG ORAL CAPSULE 591567 FLUOXETINE HCL Inactive ACZONE 5 % EXTERNAL GEL apply once daily to face 07/22 ACZONE 5 % EXTERNAL GEL 740016 DAPSONE Inactive SULFAMETHOXAZOLE-TRIMETHOPRIM 800-160 MG ORAL TABLET T QUINCY 1 TABLET BY MOUTH DAILY DIRECTED SULFAMETHOXAZOLE-TRI METHOPRIM 800-160 MG ORAL TABLET 693112 SULFAMETHOXAZOLE-TRIMETHOPRIM Inactive ZANTAC 75 75 MG ORAL TABLET take 1 po BID ZANTAC 75 75 MG ORAL TABLET 291553 RANITIDINE HCL Inactive PREDNISONE 20 MG ORAL TABLET 2 tabs daily for 3 days, 1 tab daily for 3 days, 1/2 tab daily for 2 days PREDNISONE 20 MG ORAL T ABLET 502772 PREDNISONE Inactive ZITHROMAX 250 MG ORAL TABLET 2 po today, then 1 po q days 2-5 20 11/06/16 ZITHROMAX 250 MG ORAL TABLET 996211 AZITHROMYCIN [place] ctive ZITHROMAX 250 MG ORAL TABLET 2 po today, then 1 po q days 2-5 20 12/07/06 ZITHROMAX 250 MG ORAL TABLET 640614 AZITHROMYCIN [place] ctive Immunizations Vaccine Administration Date [...] Value Unit Range Description Lab Report: Chlamydia/GC APTIMA/86743 - Lab chlamydia DNA probe NOT DETECTED NOT DETECTED chlamydia DNA probe NOT DETECTED NOT DETECTED Lab Report: Chlamydia/GC APTIMA/98489 - Microbiology Neisseria gonorrhoeae DNA probe NOT DETECTED NO T DETECTED Neisseria gonorrhoeae DNA probe NOT DETECTED NO T DETECTED Lab Report: Comp. Metabolic Panel - Chem istry sodium, serum 141 mmol/L 696-046 8532/11/22 carbon dioxide, venous blood 25.2 mmol/L 21.0-32 .0 potassium, serum 3.8 mmol/L 3.5-5.2 chloride, serum 104 mmol/L 98-107 blood glucose 95 mg/dL 65-110 urea nitrogen, blood 15 mg/dL 7-18 creatinine, serum 0.79 mg/dL 0.60-1.30 alanine aminotransferase (SGPT), serum 28 U/L 10-55 aspartate aminotransferase (SGOT), serum 17 U/L 15-45 calcium, serum 8.9 mg/dL 8.5-10.1 bilirubin, serum, total 0.30 mg/dL 0.20-1.00 sodium, serum 139 mmol/L 652-464 9309/09/06 carbon dioxide, venous blood 25.3 mmol/L 21.0-32 [...] 5.0-8.5 Encounters Code Encounter Date Provider Facility CPT-97859 Level 3 New Patient 12:59:59 CDT Madelin almodovar MD [facility] CPT-05150 Level 3 Est. Patient 10:07:39 PROMPT CARE RN Cale morris [facility] [place] CPT-45592 Level 3 Est. Patient 11:35:37 PROMPT CARE RN Cale morris [facility] [place] CPT-58069 Level 4 Est. Patient 11:10:55 CDT Shannan Are ll [facility] [place] CPT-81806 Level 4 Est. Patient 14:07:40 CDT [address] ll [facility] [place] CPT-94319 Level 4 Est. Patient 13:54:09 CDT Adrián ydson MD [facility] CPT-63071 Level 3 Est. Patient 09:22:14 CDT Adrián dyson MD [facility]-36354 Level 3 Est. Patient 08:59:31 CDT Adrián dyson MD [facility] CPT-10930 Level 3 Est. Patient 11:58:31 CDT Adrián dyson MD [facility] CPT-65575 Level 3 Est. Patient 09:06:35 CDT Adrián dyson MD [facility] CPT-73999 Level 3 Est. Patient 09:18:45 CDT Adrián dyson MD [facility] CPT-81240 Level 3 Est. Patient 09:13:22 CDT Adrián dyson MD [facility] CPT-59170 Level 3 Est. Patient 18:04:31 PROMPT CARE RN Adrián dyson MD [facility] CPT-79040 Level 4 Est. Patient 14:00:53 CDT Uriel bhatia [facility] CPT-65464 Level 3 Est. Patient 20:00:09 CDT Terry jenkins DO [facility] CPT-21248 Level 3 Est. Patient 08:45:08 CDT Uriel bhatia [facility] CPT-14306 Level 3 Est. Patient 09:09:26 CDT Uriel bhatia [facility] CPT-73881 Level 3 Est. Patient 16:32:31 CDT Adrián dyson MD [facility] CPT-97798 Level 3 Est. Patient 09:35:27 PROMPT CARE RN Norman ufentes [facility] CPT-70436 Level 2 Est. Patient 16:51:37 PROMPT CARE RN Adrián dyson MD [facility] CPT-03078 Level 3 Est. Patient 10:00:11 PROMPT CARE RN Ace Arriaza MD [facility] Procedures Code Procedure Name Date Entry Date Standard Desc ription CPT-83725 First Vx - Ix admin via ID I M or jet injects without counseling by physician 14:18:02 CDT CPT-16250 Gardasil 9 Intramuscular Suspension 1 4:18:02 CDT CPT-J3420 Vitamin B12 1000mcg (Cyanocobalamin) 16:30:23 CDT CPT-83951 Abx/Therapy Injection 16:30:23 CDT CPT-J3420 Vitamin B12 1000mcg (Cyanocobalamin) 16:09:42 CDT CPT-02128 Abx/Therapy Injection 16:09:42 CDT CPT-J3420 Vitamin B12 1000mcg (Cyanocobalamin) 15:22:47 CDT CPT-84511 Abx/Therapy Injection 15:22:47 CDT CPT-J3420 Vitamin B12 1000mcg (Cyanocobalamin) 17:00:35 CDT CPT-93428 Abx/Therapy Injection 17:00:35 CDT CPT-68696 First Vx - Ix admin via ID I M or jet injects without counseling by physician 16:04:17 PROMPT CARE RN CPT-07806 Gardasil 9 Intramuscular Suspension 1 6:04:17 PROMPT CARE RN CPT-60580 Venipuncture Draw Fee 09:40:26 CDT CPT-80885 [place] [facility] - LAB USE ONLY 09:40:26 CDT 11/30 CPT-72427 CBC with Diff - LAB USE ONLY 09:40:26 CDT 2 CPT-10218 Addl Vx - Ix admin via ID IM or jet injects without counseling by physician 09:40:21 CDT CPT-52998 Menactra Intramuscular Injectable 09:40:21 CDT CPT-98264 Addl Vx - Ix admin via ID IM or jet injects without counseling by physician 09:40:21 CDT CPT-05882 Gardasil 9 Intramuscular Suspension 0 9:40:21 CDT CPT-07607 First Vx - Ix admin via ID I M or jet injects without counseling by physician 09:40:21 CDT CPT-86045 Havrix Intramuscular Suspension 720 EL U /0.5ML 09:40:21 CDT CPT-J2930 Solu Medrol 125 mg (Methyl Prednisolone Sodium Succinate) 09:43:26 CDT CPT-35932 Abx/Therapy Injection 09:43:26 CDT CPT-J2930 Solu Medrol 125 mg (Methyl Prednisolone Sodium Succinate) 09:05:55 CDT CPT-57068 Abx/Therapy Injection 09:05:55 CDT CPT-08762 Venipuncture Draw Fee 14:01:33 CDT CPT-98751 EKG Trac and Interp 11:22:04 CDT CPT-08595 Venipuncture Draw Fee 10:53:35 CDT CPT-J2930 Solu Medrol 125 mg (Methyl Prednisolone Sodium Succinate) 09:29:26 CDT CPT-19541 Abx/Therapy Injection 09:29:26 CDT CPT-Cryo Cryotherapy 16:51:37 PROMPT CARE RN
--- OUTSIDE RECORDS SUMMARY | 2019-07-22 19:33 | XMS REPORT | Clinical Summary ---
Author Author Yovanny, Clarisa Christopher Organization [facility] Address Unknown Phone Unavailable Allergies, [...] lymph nodes CHEST DISCOMFORT 786.59 Active Uriel OBYD Other chest pain Pharyngitis-Acute 462 Inactive Adrián [...] Q 6 HRS PRN HEADACHE TRAMADOL HCL 88197923552 Active Adrián Varghese MD Active CYANOCOBALAMIN 1000 MCG/ML INJ SOLN 1 injection weekly for 1 month, than 1 a month for 2 months. recheck lab CYANOCOBALAMIN 12433764933 Active Samreen Cristo Active CITALOPRAM HYDROBROMIDE 20 MG ORAL TABS take 1 tab po qday for depresion and anxiety. CITALOPRAM HYDROBROMIDE 42111534923 Active Adrián Varghese MD Active ULTRAM 50 MG TAB take 1 tab po q 6 hrs prn headache pain TRAMADOL HCL 24996562549 No Longer Active Adrián Varghese MD Acti ve CLINDAMYCIN PHOSPHATE 2 % CREA apply cream to acne BID prn 06/14 CLINDAMYCIN PHOSPHATE 88185783300 No Longer Active Adrián Joseph Active MINOCYCLINE HCL 100 MG CAPS take one po BID MINOCYCLINE HCL 29148406997 No Longer Active Adrián Varghese MD Acti ve TRI-SPRINTEC 0.18/0.215/0.25 MG-35 MCG TABS 1 po qd as directed 201 07/04/00 NORGESTIM-ETH ESTRAD TRIPHASIC 65643233809 Active Adrián Varghese MD Active ZITHROMAX 250 MG TAB 2 po today, then 1 po q days 2-5 AZITHROMYCIN 26586760256 No Longer Active Adrián Varghese MD Acti ve ZITHROMAX 250 MG TAB 2 po today, then 1 po q days 2-5 AZITHROMYCIN 59881492662 No Longer Active Adrián Varghese MD Acti ve PREDNISONE 20 MG TAB 2 tabs daily for 3 days, 1 t ab daily for 3 days, 1/2 tab daily for 2 days PREDNISONE 43851942705 No Longer Active Adrián Varghese MD Active ZANTAC 75 75 MG TABS take 1 po BID RANITIDINE H CL 89560940333 No Longer Active Uriel BOYD Active BENZACLIN 1-5 % GEL apply to skin BID prn for acne 201 05/05/14 CLINDAMYCIN PHOS-BENZOYL PEROX 44800380588 No Longer Active Uriel BOYD Active BENZACLIN 1-5 % GEL apply to skin BID prn for acne 201 05/05/14 BENZACLIN 1-5 % GEL 731574 CLINDAMYCIN PHOS-BENZOYL PEROX Inactive MINOCYCLINE HCL 100 MG CAPS take one po BID MINOCYCLINE HCL 100 MG CAPS 356148 MINOCYCLINE HCL Inactive CLINDAMYCIN PHOSPHATE 2 % CREA apply cream to acne BID prn 06/14 CLINDAMYCIN PHOSPHATE 2 % CREA 470941 CLINDAMYCIN PHOSP HATE Inactive ULTRAM 50 MG TAB take 1 tab po q 6 hrs prn headache pain ULTRAM 50 MG TAB 971980 TRAMADOL HCL Inactive ZANTAC 75 75 MG TABS take 1 po BID ZANTAC 75 75 MG TABS 941472 RANITIDINE HCL Inactive PREDNISONE 20 MG TAB 2 tabs daily for 3 days, 1 t ab daily for 3 days, 1/2 tab daily for 2 days PREDNISONE 20 MG TAB 991181 PREDNISON E Inactive ZITHROMAX 250 MG TAB 2 po today, then 1 po q days 2-5 ZITHROMAX 250 MG TAB 7897508 AZITHROMYCIN Inactive ZITHROMAX 250 MG TAB 2 po today, then 1 po q days 2-5 ZITHROMAX 250 MG TAB 7027166 AZITHROMYCIN Inactive Immunizations Vaccine Administration Date Value [...] [phone] Encounters Code Encounter Date Provider Facility CPT-85690 Level 4 Est. Patient 13:54:09 CDT Adrián dyson MD [facility] CPT-27162 Level 3 Est. Patient 09:22:14 CDT Adrián dyson MD [facility]-88841 Level 3 Est. Patient 08:59:31 CDT Adrián dyson MD [facility]-56381 Level 3 Est. Patient 11:58:31 CDT Adrián dyson MD [facility] CPT-15514 Level 3 Est. Patient 09:06:35 CDT Adrián dyson MD [facility] CPT-93951 Level 3 Est. Patient 09:18:45 CDT Adrián dyson MD [facility] CPT-40335 Level 3 Est. Patient 09:13:22 CDT Adrián dyson MD [facility] CPT-65490 Level 3 Est. Patient 18:04:31 PORTFOLIO ASSISTANT Adrián dyson MD [facility] CPT-87215 Level 4 Est. Patient 14:00:53 CDT Uriel bhatia [facility] CPT-53621 Level 3 Est. Patient 20:00:09 CDT Terry jenkins DO [facility] CPT-14226 Level 3 Est. Patient 08:45:08 CDT Uriel bhatia [facility] CPT-63609 Level 3 Est. Patient 09:09:26 CDT Richcristian Ramirezclarissa bhatia [email or web address] CPT-29440 Level 3 Est. Patient 16:32:31 CDT Adrián dyson MD [facility] CPT-60830 Level 3 Est. Patient 09:35:27 PORTFOLIO ASSISTANT Norman Aguilararnulfo BOYD [facility] CPT-43752 Level 2 Est. Patient 16:51:37 PORTFOLIO ASSISTANT Adrián dyson MD [facility] CPT-77002 Level 3 Est. Patient 10:00:11 PORTFOLIO ASSISTANT Ace Arriaza MD [facility] Procedures Code Procedure Name Date Entry Date Standard Desc ription CPT-J3420 Vitamin B12 1000mcg (Cyanocobalamin) 15:22:47 CDT CPT-08353 Abx/Therapy Injection 15:22:47 CDT CPT-J3420 Vitamin B12 1000mcg (Cyanocobalamin) 17:00:35 CDT CPT-97484 Abx/Therapy Injection 17:00:35 CDT CPT-38294 First Vx - Ix admin via ID I M or jet injects without counseling by physician 16:04:17 PORTFOLIO ASSISTANT CPT-12078 Gardasil 9 Intramuscular Suspension 1 6:04:17 PORTFOLIO ASSISTANT CPT-57130 Venipuncture Draw Fee 09:40:26 CDT CPT-11086 [place] [facility] - LAB USE ONLY 09:40:26 CDT 11/30 CPT-97121 CBC with Diff - LAB USE ONLY 09:40:26 CDT 2 CPT-56789 Addl Vx - Ix admin via ID IM or jet injects without counseling by physician 09:40:21 CDT CPT-85046 Menactra Intramuscular Injectable 09:40:21 CDT CPT-57379 Addl Vx - Ix admin via ID IM or jet injects without counseling by physician 09:40:21 CDT CPT-73690 Gardasil 9 Intramuscular Suspension 0 9:40:21 CDT CPT-48989 First Vx - Ix admin via ID I M or jet injects without counseling by physician 09:40:21 CDT CPT-98665 Havrix Intramuscular Suspension 720 EL U /0.5ML 09:40:21 CDT CPT-J2930 Solu Medrol 125 mg (Methyl Prednisolone Sodium Succinate) 09:43:26 CDT CPT-11522 Abx/Therapy Injection 09:43:26 CDT CPT-J2930 Solu Medrol 125 mg (Methyl Prednisolone Sodium Succinate) 09:05:55 CDT CPT-44840 Abx/Therapy Injection 09:05:55 CDT CPT-87878 Venipuncture Draw Fee 14:01:33 CDT CPT-80764 EKG Trac and Interp 11:22:04 CDT CPT-88272 Venipuncture Draw Fee 10:53:35 CDT CPT-J2930 Solu Medrol 125 mg (Methyl Prednisolone Sodium Succinate) 09:29:26 CDT CPT-17718 Abx/Therapy Injection 09:29:26 CDT CPT-Cryo Cryotherapy 16:51:37 PORTFOLIO ASSISTANT
--- OUTSIDE RECORDS SUMMARY | 2019-07-22 19:33 | XMS REPORT | Clinical Summary ---
Author Author Yovanny, Clarisa Christopher Organization [facility] Address Unknown Phone Unavailable Allergies, Adverse Reactions, Alerts Allergy Name Reaction Description Start Date Severity Status Pr ovider BENZACLIN Critical Active Uriel BOYD Conditions or Problems Problem Name Problem Code Onset Date Status Entry Date Provider Comment Standard Description Annotate ACUTE BRONCHITIS 466.0 Active Ace Jsoeph Acute bronchitis FAMILY HISTORY OF HYPERTENSION V17.4 [...] Then increase to 20mg daily. FLUOXETINE HCL 00730803300 No Longer Active Yulissa Gibbs APRN Active PROZAC 20 MG ORAL CAPSULE Take 1 tab daily FLUO XETINE HCL 99161910269 Active Shannan Gibbs APRN Active BUSPIRONE HCL 7.5 MG ORAL TABLET 1 pill twice daily, for anxiety 20 14/11/05 BUSPIRONE HCL 23528529740 Active Shannan Gibbs APRN Active CITALOPRAM HYDROBROMIDE 20 MG ORAL TABLET take 1 tab p o qday for depresion and anxiety. CITALOPRAM HYDROBROMIDE 81168107523 No L onger Active Shannan Gibbs APRN Active CYANOCOBALAMIN 1000 MCG/ML INJECTION SOLUTION 1 inject ion weekly for 1 month, than 1 a month for 2 months. recheck lab CYANOCO BALAMIN 00468964023 No Longer Active Shannan Gibbs APRN Active ULTRAM 50 MG ORAL TABLET 1 TAB PO Q 6 HRS PRN HEADACHE TRAMADOL HCL 49254804730 Active Adrián Varghese MD Active ULTRAM 50 MG ORAL TABLET take 1 tab po q 6 hrs prn headache pain TRAMADOL HCL 20395987155 No Longer Active Adrián Varghese MD Active CLINDAMYCIN PHOSPHATE 2 % VAGINAL CREAM apply cream to acne BID prn CLINDAMYCIN PHOSPHATE 88836753316 No Longer Active Adrián dyson MD Active MINOCYCLINE HCL 100 MG ORAL CAPSULE take one po BID 20 13/11/25 MINOCYCLINE HCL 75399930643 No Longer Active Adrián Varghese MD A ctive TRI-SPRINTEC 0.18/0.215/0.25 MG-35 MCG ORAL TABLET 1 po qd a s directed NORGESTIM-ETH ESTRAD TRIPHASIC 34861084011 Active Adrián Varghese MD Active ZITHROMAX 250 MG ORAL TABLET 2 po today, then 1 po q days 2-5 20 12/07/06 AZITHROMYCIN 26260033899 No Longer Active Adrián Varghese MD Active ZITHROMAX 250 MG ORAL TABLET 2 po today, then 1 po q days 2-5 20 11/06/16 AZITHROMYCIN 53930228178 No Longer Active Adrián Varghese MD Active PREDNISONE 20 MG ORAL TABLET 2 tabs daily for 3 days, 1 tab daily for 3 days, 1/2 tab daily for 2 days PREDNISONE 46522425837 No Longer Active Adrián Varghese MD Active ZANTAC 75 75 MG ORAL TABLET take 1 po BID RANIT IDINE HCL 94897531977 No Longer Active Uriel BOYD Active BENZACLIN 1-5 % EXTERNAL GEL apply to skin BID prn for acne 2012 CLINDAMYCIN PHOS-BENZOYL PEROX 13014859764 No Longer Active Uriel BOYD Active BENZACLIN 1-5 % EXTERNAL GEL apply to skin BID prn for acne 2012 BENZACLIN 1-5 % EXTERNAL GEL 520746 CLINDAMYCIN PHOS-BE NZOYL PEROX Inactive MINOCYCLINE HCL 100 MG ORAL CAPSULE take one po BID 13/11/25 MINOCYCLINE HCL 100 MG ORAL CAPSULE 241012 MINOCYCLINE HCL Inac tive CLINDAMYCIN PHOSPHATE 2 % VAGINAL CREAM apply cream to acne BID prn CLINDAMYCIN PHOSPHATE 2 % VAGINAL CREAM 694399 CLINDAMY ANGELIA PHOSPHATE Inactive ULTRAM 50 MG ORAL TABLET take 1 tab po q 6 hrs prn headache pain ULTRAM 50 MG ORAL TABLET 043495 TRAMADOL HCL Inactiv e CYANOCOBALAMIN 1000 MCG/ML INJECTION SOLUTION 1 inject ion weekly for 1 month, than 1 a month for 2 months. recheck lab CYANOCOBALAMIN 1000 MCG/ML INJECTION SOLUTION 326292 CYANOCOBALAMIN Inactive CITALOPRAM HYDROBROMIDE 20 MG ORAL TABLET take 1 tab p o qday for depresion and anxiety. CITALOPRAM HYDROBROMIDE 20 MG ORAL TABLET 127071 CITALOPRAM HYDROBROMIDE Inactive PROZAC 10 MG ORAL CAPSULE Take 1 tab daily for 1 week. Then increase to 20mg daily. PROZAC 10 MG ORAL CAPSULE 923965 FLUOXETINE HCL Inactive ZANTAC 75 75 MG ORAL TABLET take 1 po BID ZANTAC 75 75 MG ORAL TABLET 655915 RANITIDINE HCL Inactive PREDNISONE 20 MG ORAL TABLET 2 tabs daily for 3 days, 1 tab daily for 3 days, 1/2 tab daily for 2 days PREDNISONE 20 MG ORAL T ABLET 344215 PREDNISONE Inactive ZITHROMAX 250 MG ORAL TABLET 2 po today, then 1 po q days 2-5 20 11/06/16 ZITHROMAX 250 MG ORAL TABLET 626941 AZITHROMYCIN [place] ctive ZITHROMAX 250 MG ORAL TABLET 2 po today, then 1 po q days 2-5 20 12/07/06 ZITHROMAX 250 MG ORAL TABLET 581703 AZITHROMYCIN [place] ctive Immunizations Vaccine Administration Date [...] Value Unit Range Description Lab Report: Chlamydia/GC APTIMA/02865 - Lab chlamydia DNA probe NOT DETECTED NOT DETECTED Lab Report: Chlamydia/GC APTIMA/26457 - Microbiology Neisseria gonorrhoeae DNA probe NOT DETECTED NO T DETECTED Lab Report: Comp. Metabolic Panel - Chem istry sodium, serum 141 mmol/L 559-991 1410/11/22 carbon dioxide, venous blood 25.2 mmol/L 21.0-32 .0 potassium, serum 3.8 mmol/L 3.5-5.2 chloride, serum 104 mmol/L 98-107 blood glucose 95 mg/dL 65-110 urea nitrogen, blood 15 mg/dL 7-18 creatinine, serum 0.79 mg/dL 0.60-1.30 alanine aminotransferase (SGPT), serum 28 U/L 10-55 aspartate aminotransferase (SGOT), serum 17 U/L 15-45 calcium, serum 8.9 mg/dL 8.5-10.1 bilirubin, serum, total 0.30 mg/dL 0.20-1.00 sodium, serum 139 mmol/L 583-310 5215/09/06 carbon dioxide, venous blood 25.3 mmol/L 21.0-32 [...] 5.0-8.5 Encounters Code Encounter Date Provider Facility [facility]-[id number] Level 3 Est. Patient 10:07:39 DIRECTOR EMPLOYMENT Cale morris [facility]24214 Level 3 Est. Patient 11:35:37 DIRECTOR EMPLOYMENT Cale morris [facility]-70337 Level 4 Est. Patient 11:10:55 CDT Shannan Lazcano [facility]-54998 Level 4 Est. Patient 14:07:40 CDT [facility]-00214 Level 4 Est. Patient 13:54:09 CDT Adrián dyson MD [facility]95806 Level 3 Est. Patient 09:22:14 CDT Adrián dyson MD [facility]31184 Level 3 Est. Patient 08:59:31 CDT Adrián dyson MD [facility]80754 Level 3 Est. Patient 11:58:31 CDT Adrián dyson MD [facility]-39509 Level 3 Est. Patient 09:06:35 CDT Adrián dyson MD [facility]-63754 Level 3 Est. Patient 09:18:45 CDT Adrián dyson MD [facility]-35553 Level 3 Est. Patient 09:13:22 CDT Adrián dyson MD [facility]-66175 Level 3 Est. Patient 18:04:31 DIRECTOR EMPLOYMENT Adrián dyson MD [facility]-58616 Level 4 Est. Patient 14:00:53 CDT Uriel bhatia [facility] CPT-91166 Level 3 Est. Patient 20:00:09 CDT Terry Elisha Sachin jenkins DO [facility] CPT-11354 Level 3 Est. Patient 08:45:08 CDT Uriel bhatia [facility] CPT-50471 Level 3 Est. Patient 09:09:26 CDT Uriel bhatia [facility] CPT-75837 Level 3 Est. Patient 16:32:31 CDT Adrián dyson MD [facility] CPT-77580 Level 3 Est. Patient 09:35:27 DIRECTOR EMPLOYMENT Norman fuentes [facility] CPT-61039 Level 2 Est. Patient 16:51:37 DIRECTOR EMPLOYMENT Adrián dyson MD [facility] CPT-24568 Level 3 Est. Patient 10:00:11 DIRECTOR EMPLOYMENT Ace Arriaza MD [facility] Procedures Code Procedure Name Date Entry Date Standard Desc ription CPT-47573 First Vx - Ix admin via ID I M or jet injects without counseling by physician 14:18:02 CDT CPT-13249 Gardasil 9 Intramuscular Suspension 1 4:18:02 CDT CPT-J3420 Vitamin B12 1000mcg (Cyanocobalamin) 16:30:23 CDT CPT-17282 Abx/Therapy Injection 16:30:23 CDT CPT-J3420 Vitamin B12 1000mcg (Cyanocobalamin) 16:09:42 CDT CPT-90793 Abx/Therapy Injection 16:09:42 CDT CPT-J3420 Vitamin B12 1000mcg (Cyanocobalamin) 15:22:47 CDT CPT-86990 Abx/Therapy Injection 15:22:47 CDT CPT-J3420 Vitamin B12 1000mcg (Cyanocobalamin) 17:00:35 CDT CPT-51810 Abx/Therapy Injection 17:00:35 CDT CPT-57950 First Vx - Ix admin via ID I M or jet injects without counseling by physician 16:04:17 DIRECTOR EMPLOYMENT CPT-26834 Gardasil 9 Intramuscular Suspension 1 6:04:17 DIRECTOR EMPLOYMENT CPT-86169 Venipuncture Draw Fee 09:40:26 CDT CPT-24621 [place] [facility] - LAB USE ONLY 09:40:26 CDT 11/30 CPT-29499 CBC with Diff - LAB USE ONLY 09:40:26 CDT 2 CPT-04455 Addl Vx - Ix admin via ID IM or jet injects without counseling by physician 09:40:21 CDT CPT-23738 Menactra Intramuscular Injectable 09:40:21 CDT CPT-48771 Addl Vx - Ix admin via ID IM or jet injects without counseling by physician 09:40:21 CDT CPT-81602 Gardasil 9 Intramuscular Suspension 0 9:40:21 CDT CPT-87887 First Vx - Ix admin via ID I M or jet injects without counseling by physician 09:40:21 CDT CPT-58521 Havrix Intramuscular Suspension 720 EL U /0.5ML 09:40:21 CDT CPT-J2930 Solu Medrol 125 mg (Methyl Prednisolone Sodium Succinate) 09:43:26 CDT CPT-02009 Abx/Therapy Injection 09:43:26 CDT CPT-J2930 Solu Medrol 125 mg (Methyl Prednisolone Sodium Succinate) 09:05:55 CDT CPT-09213 Abx/Therapy Injection 09:05:55 CDT CPT-11745 Venipuncture Draw Fee 14:01:33 CDT CPT-26429 EKG Trac and Interp 11:22:04 CDT CPT-76283 Venipuncture Draw Fee 10:53:35 CDT CPT-J2930 Solu Medrol 125 mg (Methyl Prednisolone Sodium Succinate) 09:29:26 CDT CPT-21656 Abx/Therapy Injection 09:29:26 CDT CPT-Cryo Cryotherapy 16:51:37 DIRECTOR EMPLOYMENT
--- OUTSIDE RECORDS SUMMARY | 2019-07-22 19:33 | XMS REPORT | Clinical Summary ---
Author Author Yovanny, Clarisa Christopher Organization [facility] Address Unknown Phone Unavailable Allergies, [...] Instructions Start Date Stop Date Generic Name [facility] Status Provider Patient Instruction CITALOPRAM HYDROBROMIDE 20 MG ORAL TABS take 1 tab po qday for depresion and anxiety. CITALOPRAM HYDROBROMIDE 08590721934 Active Adrián Varghese MD Active ULTRAM 50 MG TAB take 1 tab po q 6 hrs prn headache pain TRAMADOL HCL 59538828718 No Longer Active Adrián Varghese MD Acti ve CLINDAMYCIN PHOSPHATE 2 % CREA apply cream to acne BID prn 06/14 CLINDAMYCIN PHOSPHATE 98939734683 No Longer Active Adrián Joseph Active MINOCYCLINE HCL 100 MG CAPS take one po BID MINOCYCLINE HCL 63908344918 No Longer Active Adrián Varghese MD Acti ve TRI-SPRINTEC 0.18/0.215/0.25 MG-35 MCG TABS 1 po qd as directed 201 07/04/00 NORGESTIM-ETH ESTRAD TRIPHASIC 74952758696 Active Adrián Varghese MD Active ZITHROMAX 250 MG TAB 2 po today, then 1 po q days 2-5 AZITHROMYCIN 76711292207 No Longer Active Adrián Varghese MD Acti ve ZITHROMAX 250 MG TAB 2 po today, then 1 po q days 2-5 AZITHROMYCIN 47966556790 No Longer Active Adrián Varghese MD Acti ve PREDNISONE 20 MG TAB 2 tabs daily for 3 days, 1 t ab daily for 3 days, 1/2 tab daily for 2 days PREDNISONE 87693278698 No Longer Active Adrián Varghese MD Active ZANTAC 75 75 MG TABS take 1 po BID RANITIDINE H CL 28432002061 No Longer Active Uriel BOYD Active BENZACLIN 1-5 % GEL apply to skin BID prn for acne 201 05/05/14 CLINDAMYCIN PHOS-BENZOYL PEROX 87739859896 No Longer Active Uriel BOYD Active BENZACLIN 1-5 % GEL apply to skin BID prn for acne 201 05/05/14 BENZACLIN 1-5 % GEL 081674 CLINDAMYCIN PHOS-BENZOYL PEROX Inactive MINOCYCLINE HCL 100 MG CAPS take one po BID MINOCYCLINE HCL 100 MG CAPS 753435 MINOCYCLINE HCL Inactive CLINDAMYCIN PHOSPHATE 2 % CREA apply cream to acne BID prn 06/14 CLINDAMYCIN PHOSPHATE 2 % CREA 245258 CLINDAMYCIN PHOSP HATE Inactive ULTRAM 50 MG TAB take 1 tab po q 6 hrs prn headache pain ULTRAM 50 MG TAB 266498 TRAMADOL HCL Inactive ZANTAC 75 75 MG TABS take 1 po BID ZANTAC 75 75 MG TABS 938934 RANITIDINE HCL Inactive PREDNISONE 20 MG TAB 2 tabs daily for 3 days, 1 t ab daily for 3 days, 1/2 tab daily for 2 days PREDNISONE 20 MG TAB 072024 PREDNISON E Inactive ZITHROMAX 250 MG TAB 2 po today, then 1 po q days 2-5 ZITHROMAX 250 MG TAB 9051221 AZITHROMYCIN Inactive ZITHROMAX 250 MG TAB 2 po today, then 1 po q days 2-5 ZITHROMAX 250 MG TAB 5068998 AZITHROMYCIN Inactive Immunizations Vaccine Administration Date Value [...] 142-424 Encounters Code Encounter Date Provider Facility CPT-70927 Level 4 Est. Patient 13:54:09 CDT Adrián dyson MD [facility]-27275 Level 3 Est. Patient 09:22:14 CDT Adrián dyson MD [facility]-07141 Level 3 Est. Patient 08:59:31 CDT Adrián dyson MD [facility]-96500 Level 3 Est. Patient 11:58:31 CDT Adrián dyson MD [facility]-38266 Level 3 Est. Patient 09:06:35 CDT Adrián dyson MD [facility]-90520 Level 3 Est. Patient 09:18:45 CDT Adrián dyson MD [facility]-24269 Level 3 Est. Patient 09:13:22 CDT Adrián dyson MD [facility]-21208 Level 3 Est. Patient 18:04:31 HOME DAY CARE PROVIDER Adrián dyson MD [facility]-97221 Level 4 Est. Patient 14:00:53 CDT Uriel bhatia [facility]-86025 Level 3 Est. Patient 20:00:09 CDT Terry jenkins DO [facility]-08727 Level 3 Est. Patient 08:45:08 CDT Uriel bhatia [facility]-19666 Level 3 Est. Patient 09:09:26 CDT Uriel bhatia [facility]-64362 Level 3 Est. Patient 16:32:31 CDT Adrián dyson MD [facility]-46286 Level 3 Est. Patient 09:35:27 HOME DAY CARE PROVIDER Norman fuentes [facility]-24916 Level 2 Est. Patient 16:51:37 HOME DAY CARE PROVIDER Adrián dyson MD [facility] CPT-39689 Level 3 Est. Patient 10:00:11 HOME DAY CARE PROVIDER Ace Arriaza MD [facility] Procedures Code Procedure Name Date Entry Date Standard Desc ription CPT-68352 First Vx - Ix admin via ID I M or jet injects without counseling by physician 16:04:17 HOME DAY CARE PROVIDER CPT-11709 Gardasil 9 Intramuscular Suspension 1 6:04:17 HOME DAY CARE PROVIDER CPT-36574 Venipuncture Draw Fee 09:40:26 CDT CPT-49442 [place] [facility] - LAB USE ONLY 09:40:26 CDT 11/30 CPT-82231 CBC with Diff - LAB USE ONLY 09:40:26 CDT 2 CPT-16903 Addl Vx - Ix admin via ID IM or jet injects without counseling by physician 09:40:21 CDT CPT-01529 Menactra Intramuscular Injectable 09:40:21 CDT CPT-82354 Addl Vx - Ix admin via ID IM or jet injects without counseling by physician 09:40:21 CDT CPT-25661 Gardasil 9 Intramuscular Suspension 0 9:40:21 CDT CPT-91140 First Vx - Ix admin via ID I M or jet injects without counseling by physician 09:40:21 CDT CPT-28509 Havrix Intramuscular Suspension 720 EL U /0.5ML 09:40:21 CDT CPT-J2930 Solu Medrol 125 mg (Methyl Prednisolone Sodium Succinate) 09:43:26 CDT CPT-59989 Abx/Therapy Injection 09:43:26 CDT CPT-J2930 Solu Medrol 125 mg (Methyl Prednisolone Sodium Succinate) 09:05:55 CDT CPT-38455 Abx/Therapy Injection 09:05:55 CDT CPT-50387 Venipuncture Draw Fee 14:01:33 CDT CPT-07958 EKG Trac and Interp 11:22:04 CDT CPT-05638 Venipuncture Draw Fee 10:53:35 CDT CPT-J2930 Solu Medrol 125 mg (Methyl Prednisolone Sodium Succinate) 09:29:26 CDT CPT-17998 Abx/Therapy Injection 09:29:26 CDT CPT-Cryo Cryotherapy 16:51:37 HOME DAY CARE PROVIDER
--- OUTSIDE RECORDS SUMMARY | 2019-07-22 19:33 | XMS REPORT | Clinical Summary ---
Author Author Yovanny, Clarisa Christopher Organization [facility] Address Unknown Phone Unavailable Allergies, Adverse [...] twice daily, for anxiety 2016 BUSPIRONE HCL 59225658993 Active Shannan Gibbs APRN Active PROZAC 20 MG CAP Take 1 tab daily. FLUOXETINE HCL 08832335739 Active Shannan Gibbs APRN Active PROZAC 10 MG CAP Take 1 tab daily for 1 week. Then increa se to 20mg daily. FLUOXETINE HCL 64108036734 Active Shannan Gibbs APRN Active CITALOPRAM HYDROBROMIDE 20 MG ORAL TABS take 1 tab po qday for depresion and anxiety. CITALOPRAM HYDROBROMIDE 94042745650 No L onger Active Shannan Gibbs APRN Active CYANOCOBALAMIN 1000 MCG/ML INJ SOLN 1 injection weekly for 1 month, than 1 a month for 2 months. recheck lab CYANOCOBALAMIN 52680405217 No Longer Active Shannan Gibbs APRN Active ULTRAM 50 MG TAB 1 TAB PO Q 6 HRS PRN HEADACHE TRAMADOL HCL 29068180459 Active Adrián Varghese MD Active ULTRAM 50 MG TAB take 1 tab po q 6 hrs prn headache pain TRAMADOL HCL 09262290882 No Longer Active Adrián Varghese MD Acti ve CLINDAMYCIN PHOSPHATE 2 % CREA apply cream to acne BID prn 06/14 CLINDAMYCIN PHOSPHATE 59507055853 No Longer Active Adrián Joseph Active MINOCYCLINE HCL 100 MG CAPS take one po BID MINOCYCLINE HCL 69587823666 No Longer Active Adrián Varghese MD Acti ve TRI-SPRINTEC 0.18/0.215/0.25 MG-35 MCG TABS 1 po qd as directed 201 07/04/00 NORGESTIM-ETH ESTRAD TRIPHASIC 00887515218 Active Adrián Varghese MD Active ZITHROMAX 250 MG TAB 2 po today, then 1 po q days 2-5 AZITHROMYCIN 42880968541 No Longer Active Adrián Varghese MD Acti ve ZITHROMAX 250 MG TAB 2 po today, then 1 po q days 2-5 AZITHROMYCIN 28297976968 No Longer Active Adrián Varghese MD Acti ve PREDNISONE 20 MG TAB 2 tabs daily for 3 days, 1 t ab daily for 3 days, 1/2 tab daily for 2 days PREDNISONE 23183579260 No Longer Active Adrián Varghese MD Active ZANTAC 75 75 MG TABS take 1 po BID RANITIDINE H CL 68680101396 No Longer Active Uriel BOYD Active BENZACLIN 1-5 % GEL apply to skin BID prn for acne 201 05/05/14 CLINDAMYCIN PHOS-BENZOYL PEROX 09644137072 No Longer Active Uriel BOYD Active BENZACLIN 1-5 % GEL apply to skin BID prn for acne 201 05/05/14 BENZACLIN 1-5 % GEL 209761 CLINDAMYCIN PHOS-BENZOYL PEROX Inactive MINOCYCLINE HCL 100 MG CAPS take one po BID MINOCYCLINE HCL 100 MG CAPS 844363 MINOCYCLINE HCL Inactive CLINDAMYCIN PHOSPHATE 2 % CREA apply cream to acne BID prn 06/14 CLINDAMYCIN PHOSPHATE 2 % CREA 757146 CLINDAMYCIN PHOSP HATE Inactive ULTRAM 50 MG TAB take 1 tab po q 6 hrs prn headache pain ULTRAM 50 MG TAB 156373 TRAMADOL HCL Inactive CYANOCOBALAMIN 1000 MCG/ML INJ SOLN 1 injection weekly for 1 month, than 1 a month for 2 months. recheck lab CYANOCOB ALAMIN 1000 MCG/ML INJ SOLN 826399 CYANOCOBALAMIN Inactive CITALOPRAM HYDROBROMIDE 20 MG ORAL TABS take 1 tab po qday for depresion and anxiety. CITALOPRAM HYDROBROMIDE 20 MG ORAL TABS 2 48705 CITALOPRAM HYDROBROMIDE Inactive ZANTAC 75 75 MG TABS take 1 po BID ZANTAC 75 75 MG TABS 725784 RANITIDINE HCL Inactive PREDNISONE 20 MG TAB 2 tabs daily for 3 days, 1 t ab daily for 3 days, 1/2 tab daily for 2 days PREDNISONE 20 MG TAB 515424 PREDNISON E Inactive ZITHROMAX 250 MG TAB 2 po today, then 1 po q days 2-5 ZITHROMAX 250 MG TAB 663160 AZITHROMYCIN Inactive ZITHROMAX 250 MG TAB 2 po today, then 1 po q days 2-5 ZITHROMAX 250 MG TAB 314081 AZITHROMYCIN Inactive Immunizations Vaccine Administration Date Value [...] - Chem istry sodium, serum 139 mmol/L 517-827 6501/09/06 carbon dioxide, venous blood 25.3 mmol/L 21.0-32 [...] 0.20-1.00 Encounters Code Encounter Date Provider Facility CPT-82493 Level 4 Est. Patient 14:07:40 CDT Hubert WARD [facility] CPT-68905 Level 4 Est. Patient 13:54:09 CDT Adrián dyson MD [facility] CPT-06518 Level 3 Est. Patient 09:22:14 CDT Adrián dyson MD [facility] CPT-03652 Level 3 Est. Patient 08:59:31 CDT Adrián dyson MD [facility] CPT-64463 Level 3 Est. Patient 11:58:31 CDT Adrián dyson MD [facility] CPT-96841 Level 3 Est. Patient 09:06:35 CDT Adrián dyson MD [facility] CPT-95246 Level 3 Est. Patient 09:18:45 CDT Adrián dyson MD [facility] CPT-70765 Level 3 Est. Patient 09:13:22 CDT Adrián dyson MD [facility] CPT-61207 Level 3 Est. Patient 18:04:31 SECTION LEADER Adrián dyson MD [facility] CPT-07665 Level 4 Est. Patient 14:00:53 CDT Uriel BOYD [facility] CPT-57616 Level 3 Est. Patient 20:00:09 CDT Terry jenkins DO [facility] CPT-68759 Level 3 Est. Patient 08:45:08 CDT Richcristian Ashleyclarissa bhatia [facility] CPT-84945 Level 3 Est. Patient 09:09:26 CDT Uriel hintonist [facility] CPT-83479 Level 3 Est. Patient 16:32:31 CDT Adrián dyson MD [facility] CPT-25379 Level 3 Est. Patient 09:35:27 SECTION LEADER Nroman fuentes [facility] CPT-32817 Level 2 Est. Patient 16:51:37 SECTION LEADER Adrián dyson MD [facility] CPT-96797 Level 3 Est. Patient 10:00:11 SECTION LEADER Ace Arriaza MD [facility] Procedures Code Procedure Name Date Entry Date Standard Desc ription CPT-43951 First Vx - Ix admin via ID I M or jet injects without counseling by physician 14:18:02 CDT CPT-61907 Gardasil 9 Intramuscular Suspension 1 4:18:02 CDT CPT-J3420 Vitamin B12 1000mcg (Cyanocobalamin) 16:30:23 CDT CPT-56805 Abx/Therapy Injection 16:30:23 CDT CPT-J3420 Vitamin B12 1000mcg (Cyanocobalamin) 16:09:42 CDT CPT-80478 Abx/Therapy Injection 16:09:42 CDT CPT-J3420 Vitamin B12 1000mcg (Cyanocobalamin) 15:22:47 CDT CPT-94794 Abx/Therapy Injection 15:22:47 CDT CPT-J3420 Vitamin B12 1000mcg (Cyanocobalamin) 17:00:35 CDT CPT-00572 Abx/Therapy Injection 17:00:35 CDT CPT-16204 First Vx - Ix admin via ID I M or jet injects without counseling by physician 16:04:17 SECTION LEADER CPT-27913 Gardasil 9 Intramuscular Suspension 1 6:04:17 SECTION LEADER CPT-85068 Venipuncture Draw Fee 09:40:26 CDT CPT-74850 [place] [facility] - LAB USE ONLY 09:40:26 CDT 11/30 CPT-47551 CBC with Diff - LAB USE ONLY 09:40:26 CDT 2 CPT-87098 Addl Vx - Ix admin via ID IM or jet injects without counseling by physician 09:40:21 CDT CPT-06061 Menactra Intramuscular Injectable 09:40:21 CDT CPT-70217 Addl Vx - Ix admin via ID IM or jet injects without counseling by physician 09:40:21 CDT CPT-18377 Gardasil 9 Intramuscular Suspension 0 9:40:21 CDT CPT-90827 First Vx - Ix admin via ID I M or jet injects without counseling by physician 09:40:21 CDT CPT-75363 Havrix Intramuscular Suspension 720 EL U /0.5ML 09:40:21 CDT CPT-J2930 Solu Medrol 125 mg (Methyl Prednisolone Sodium Succinate) 09:43:26 CDT CPT-90328 Abx/Therapy Injection 09:43:26 CDT CPT-J2930 Solu Medrol 125 mg (Methyl Prednisolone Sodium Succinate) 09:05:55 CDT CPT-86045 Abx/Therapy Injection 09:05:55 CDT CPT-39753 Venipuncture Draw Fee 14:01:33 CDT CPT-26512 EKG Trac and Interp 11:22:04 CDT CPT-12115 Venipuncture Draw Fee 10:53:35 CDT CPT-J2930 Solu Medrol 125 mg (Methyl Prednisolone Sodium Succinate) 09:29:26 CDT CPT-15334 Abx/Therapy Injection 09:29:26 CDT CPT-Cryo Cryotherapy 16:51:37 SECTION LEADER
--- OUTSIDE RECORDS SUMMARY | 2019-07-22 19:33 | XMS REPORT | Clinical Summary ---
Author Author Yovanny, Clarisa Christopher Organization [facility] Address Unknown Phone Unavailable Allergies, Adverse [...] Then increase to 20mg daily. FLUOXETINE HCL 71923913566 No Longer Active Yulissa Gibbs APRN Active PROZAC 20 MG ORAL CAPSULE Take 1 tab daily FLUO XETINE HCL 60070250922 Active Shannan Gibbs APRN Active BUSPIRONE HCL 7.5 MG ORAL TABLET 1 pill twice daily, for anxiety 20 14/11/05 BUSPIRONE HCL 96421461149 Active Shannan Gibbs APRN Active CITALOPRAM HYDROBROMIDE 20 MG ORAL TABLET take 1 tab p o qday for depresion and anxiety. CITALOPRAM HYDROBROMIDE 17154401872 No L onger Active Shannan Gibbs APRN Active CYANOCOBALAMIN 1000 MCG/ML INJECTION SOLUTION 1 inject ion weekly for 1 month, than 1 a month for 2 months. recheck lab CYANOCO BALAMIN 30205440793 No Longer Active Shannan Gibbs APRN Active ULTRAM 50 MG ORAL TABLET 1 TAB PO Q 6 HRS PRN HEADACHE TRAMADOL HCL 76748382804 Active Adrián Varghese MD Active ULTRAM 50 MG ORAL TABLET take 1 tab po q 6 hrs prn headache pain TRAMADOL HCL 28701322136 No Longer Active Adrián Varghese MD Active CLINDAMYCIN PHOSPHATE 2 % VAGINAL CREAM apply cream to acne BID prn CLINDAMYCIN PHOSPHATE 84557844619 No Longer Active Adrián dyson MD Active MINOCYCLINE HCL 100 MG ORAL CAPSULE take one po BID 20 13/11/25 MINOCYCLINE HCL 96960676450 No Longer Active Adrián Varghese MD A ctive TRI-SPRINTEC 0.18/0.215/0.25 MG-35 MCG ORAL TABLET 1 po qd a s directed NORGESTIM-ETH ESTRAD TRIPHASIC 72795229762 Active Adrián Varghese MD Active ZITHROMAX 250 MG ORAL TABLET 2 po today, then 1 po q days 2-5 20 12/07/06 AZITHROMYCIN 76081558552 No Longer Active Adrián Varghese MD Active ZITHROMAX 250 MG ORAL TABLET 2 po today, then 1 po q days 2-5 20 11/06/16 AZITHROMYCIN 33380368957 No Longer Active Adrián Varghese MD Active PREDNISONE 20 MG ORAL TABLET 2 tabs daily for 3 days, 1 tab daily for 3 days, 1/2 tab daily for 2 days PREDNISONE 21987742248 No Longer Active Adrián Varghese MD Active ZANTAC 75 75 MG ORAL TABLET take 1 po BID RANIT IDINE HCL 47841245980 No Longer Active Uriel BOYD Active BENZACLIN 1-5 % EXTERNAL GEL apply to skin BID prn for acne 2012 CLINDAMYCIN PHOS-BENZOYL PEROX 80114848701 No Longer Active Uriel BOYD Active BENZACLIN 1-5 % EXTERNAL GEL apply to skin BID prn for acne 2012 BENZACLIN 1-5 % EXTERNAL GEL 358063 CLINDAMYCIN PHOS-BE NZOYL PEROX Inactive MINOCYCLINE HCL 100 MG ORAL CAPSULE take one po BID 13/11/25 MINOCYCLINE HCL 100 MG ORAL CAPSULE 805056 MINOCYCLINE HCL Inac tive CLINDAMYCIN PHOSPHATE 2 % VAGINAL CREAM apply cream to acne BID prn CLINDAMYCIN PHOSPHATE 2 % VAGINAL CREAM 478151 CLINDAMY ANGELIA PHOSPHATE Inactive ULTRAM 50 MG ORAL TABLET take 1 tab po q 6 hrs prn headache pain ULTRAM 50 MG ORAL TABLET 301282 TRAMADOL HCL Inactiv e CYANOCOBALAMIN 1000 MCG/ML INJECTION SOLUTION 1 inject ion weekly for 1 month, than 1 a month for 2 months. recheck lab CYANOCOBALAMIN 1000 MCG/ML INJECTION SOLUTION 492819 CYANOCOBALAMIN Inactive CITALOPRAM HYDROBROMIDE 20 MG ORAL TABLET take 1 tab p o qday for depresion and anxiety. CITALOPRAM HYDROBROMIDE 20 MG ORAL TABLET 061549 CITALOPRAM HYDROBROMIDE Inactive PROZAC 10 MG ORAL CAPSULE Take 1 tab daily for 1 week. Then increase to 20mg daily. PROZAC 10 MG ORAL CAPSULE 475993 FLUOXETINE HCL Inactive ZANTAC 75 75 MG ORAL TABLET take 1 po BID ZANTAC 75 75 MG ORAL TABLET 712694 RANITIDINE HCL Inactive PREDNISONE 20 MG ORAL TABLET 2 tabs daily for 3 days, 1 tab daily for 3 days, 1/2 tab daily for 2 days PREDNISONE 20 MG ORAL T ABLET 948757 PREDNISONE Inactive ZITHROMAX 250 MG ORAL TABLET 2 po today, then 1 po q days 2-5 20 11/06/16 ZITHROMAX 250 MG ORAL TABLET 661604 AZITHROMYCIN [place] ctive ZITHROMAX 250 MG ORAL TABLET 2 po today, then 1 po q days 2-5 20 12/07/06 ZITHROMAX 250 MG ORAL TABLET 273817 AZITHROMYCIN [place] ctive Immunizations Vaccine Administration Date [...] Value Unit Range Description Lab Report: Chlamydia/GC APTIMA/88427 - Lab chlamydia DNA probe NOT DETECTED NOT DETECTED Lab Report: Chlamydia/GC APTIMA/97938 - Microbiology Neisseria gonorrhoeae DNA probe NOT DETECTED NO T DETECTED Lab Report: Comp. Metabolic Panel - Chem istry sodium, serum 141 mmol/L 893-793 6822/11/22 carbon dioxide, venous blood 25.2 mmol/L 21.0-32 .0 potassium, serum 3.8 mmol/L 3.5-5.2 chloride, serum 104 mmol/L 98-107 blood glucose 95 mg/dL 65-110 urea nitrogen, blood 15 mg/dL 7-18 creatinine, serum 0.79 mg/dL 0.60-1.30 alanine aminotransferase (SGPT), serum 28 U/L 10-55 aspartate aminotransferase (SGOT), serum 17 U/L 15-45 calcium, serum 8.9 mg/dL 8.5-10.1 bilirubin, serum, total 0.30 mg/dL 0.20-1.00 sodium, serum 139 mmol/L 093-147 8737/09/06 carbon dioxide, venous blood 25.3 mmol/L 21.0-32 [...] 5.0-8.5 Encounters Code Encounter Date Provider Facility [facility]-[id number] Level 3 Est. Patient 10:07:39 INFORMATICS SPECIALIST Cale morris [facility]26365 Level 3 Est. Patient 11:35:37 INFORMATICS SPECIALIST Cale morris [facility]-39738 Level 4 Est. Patient 11:10:55 CDT Shannan Lazcano [facility]-87780 Level 4 Est. Patient 14:07:40 CDT [facility]-23515 Level 4 Est. Patient 13:54:09 CDT Adrián dyson MD [facility]57749 Level 3 Est. Patient 09:22:14 CDT Adrián dyson MD [facility]13062 Level 3 Est. Patient 08:59:31 CDT Adrián dyson MD [facility]29114 Level 3 Est. Patient 11:58:31 CDT Adrián dyson MD [facility]-59133 Level 3 Est. Patient 09:06:35 CDT Adrián dyson MD [facility]-35308 Level 3 Est. Patient 09:18:45 CDT Adrián dyson MD [facility]-28939 Level 3 Est. Patient 09:13:22 CDT Adrián dyson MD [facility]-70820 Level 3 Est. Patient 18:04:31 INFORMATICS SPECIALIST Adrián dyson MD [facility]-52625 Level 4 Est. Patient 14:00:53 CDT Uriel bhatia [facility] CPT-59876 Level 3 Est. Patient 20:00:09 CDT Terry Elisha Sachin jenkins DO [facility] CPT-65482 Level 3 Est. Patient 08:45:08 CDT Uriel bhatia [facility] CPT-40801 Level 3 Est. Patient 09:09:26 CDT Uriel bhatia [facility] CPT-97597 Level 3 Est. Patient 16:32:31 CDT Adrián dyson MD [facility] CPT-90697 Level 3 Est. Patient 09:35:27 INFORMATICS SPECIALIST Norman fuentes [facility] CPT-03320 Level 2 Est. Patient 16:51:37 INFORMATICS SPECIALIST Adrián dyson MD [facility] CPT-86341 Level 3 Est. Patient 10:00:11 INFORMATICS SPECIALIST Ace Arriaza MD [facility] Procedures Code Procedure Name Date Entry Date Standard Desc ription CPT-18437 First Vx - Ix admin via ID I M or jet injects without counseling by physician 14:18:02 CDT CPT-59202 Gardasil 9 Intramuscular Suspension 1 4:18:02 CDT CPT-J3420 Vitamin B12 1000mcg (Cyanocobalamin) 16:30:23 CDT CPT-23686 Abx/Therapy Injection 16:30:23 CDT CPT-J3420 Vitamin B12 1000mcg (Cyanocobalamin) 16:09:42 CDT CPT-06430 Abx/Therapy Injection 16:09:42 CDT CPT-J3420 Vitamin B12 1000mcg (Cyanocobalamin) 15:22:47 CDT CPT-17828 Abx/Therapy Injection 15:22:47 CDT CPT-J3420 Vitamin B12 1000mcg (Cyanocobalamin) 17:00:35 CDT CPT-09935 Abx/Therapy Injection 17:00:35 CDT CPT-77525 First Vx - Ix admin via ID I M or jet injects without counseling by physician 16:04:17 INFORMATICS SPECIALIST CPT-79587 Gardasil 9 Intramuscular Suspension 1 6:04:17 INFORMATICS SPECIALIST CPT-38812 Venipuncture Draw Fee 09:40:26 CDT CPT-65917 [facility] - LAB USE ONLY 09:40:26 CDT 11/30 CPT-44029 CBC with Diff - LAB USE ONLY 09:40:26 CDT 2 CPT-75290 Addl Vx - Ix admin via ID IM or jet injects without counseling by physician 09:40:21 CDT CPT-43521 Menactra Intramuscular Injectable 09:40:21 CDT CPT-91466 Addl Vx - Ix admin via ID IM or jet injects without counseling by physician 09:40:21 CDT CPT-12203 Gardasil 9 Intramuscular Suspension 0 9:40:21 CDT CPT-21671 First Vx - Ix admin via ID I M or jet injects without counseling by physician 09:40:21 CDT CPT-31056 Havrix Intramuscular Suspension 720 EL U /0.5ML 09:40:21 CDT CPT-J2930 Solu Medrol 125 mg (Methyl Prednisolone Sodium Succinate) 09:43:26 CDT CPT-71926 Abx/Therapy Injection 09:43:26 CDT CPT-J2930 Solu Medrol 125 mg (Methyl Prednisolone Sodium Succinate) 09:05:55 CDT CPT-29452 Abx/Therapy Injection 09:05:55 CDT CPT-97295 Venipuncture Draw Fee 14:01:33 CDT CPT-27782 EKG Trac and Interp 11:22:04 CDT CPT-27619 Venipuncture Draw Fee 10:53:35 CDT CPT-J2930 Solu Medrol 125 mg (Methyl Prednisolone Sodium Succinate) 09:29:26 CDT CPT-55424 Abx/Therapy Injection 09:29:26 CDT CPT-Cryo Cryotherapy 16:51:37 INFORMATICS SPECIALIST
--- OUTSIDE RECORDS SUMMARY | 2019-07-22 19:34 | XMS REPORT | Clinical Summary ---
[...] GEL apply once daily to face DAPSONE [id number] Active Latonia Madclarissa PATELN Active SULFAMETHOXAZOLE-TRIMETHOPRIM 800-160 MG ORAL TABLET T QUINCY 1 TABLET BY MOUTH DAILY DIRECTED SULFAMETHOXAZOLE-TRIMETHOPRIM 2383756497 1 Active Latonia Gonzalez HAND I CUTTER Active PROZAC 10 MG ORAL CAPSULE Take 1 tab daily for 1 week. Then increase to 20mg daily. FLUOXETINE HCL 57229802603 No Longer Active Yulissa Gibbs APRN Active PROZAC 20 MG ORAL CAPSULE Take 1 tab daily FLUO XETINE HCL 69169408194 Active Shannan Gibbs APRN Active BUSPIRONE HCL 7.5 MG ORAL TABLET 1 pill twice daily, for anxiety 20 14/11/05 BUSPIRONE HCL 82178452922 Active Shannan Gibbs APRN Active CITALOPRAM HYDROBROMIDE 20 MG ORAL TABLET take 1 tab p o qday for depresion and anxiety. CITALOPRAM HYDROBROMIDE 23448261182 No L onger Active Shannan Gibbs APRN Active CYANOCOBALAMIN 1000 MCG/ML INJECTION SOLUTION 1 inject ion weekly for 1 month, than 1 a month for 2 months. recheck lab CYANOCO BALAMIN 20215344011 No Longer Active Shannan Gibbs APRN Active ULTRAM 50 MG ORAL TABLET 1 TAB PO Q 6 HRS PRN HEADACHE TRAMADOL HCL 05684754946 Active Adrián Varghese MD Active ULTRAM 50 MG ORAL TABLET take 1 tab po q 6 hrs prn headache pain TRAMADOL HCL 09737831225 No Longer Active Adrián Varghese MD Active CLINDAMYCIN PHOSPHATE 2 % VAGINAL CREAM apply cream to acne BID prn CLINDAMYCIN PHOSPHATE 73453179772 No Longer Active Adrián dyson MD Active MINOCYCLINE HCL 100 MG ORAL CAPSULE take one po BID 20 13/11/25 MINOCYCLINE HCL 46215660989 No Longer Active Adrián Varghese MD A ctive TRI-SPRINTEC 0.18/0.215/0.25 MG-35 MCG ORAL TABLET 1 po qd a s directed NORGESTIM-ETH ESTRAD TRIPHASIC 54722910544 Active Adrián Varghese MD Active ZITHROMAX 250 MG ORAL TABLET 2 po today, then 1 po q days 2-5 20 12/07/06 AZITHROMYCIN 64752652416 No Longer Active Adrián Varghese MD Active ZITHROMAX 250 MG ORAL TABLET 2 po today, then 1 po q days 2-5 20 11/06/16 AZITHROMYCIN 10759422025 No Longer Active Adrián Varghese MD Active PREDNISONE 20 MG ORAL TABLET 2 tabs daily for 3 days, 1 tab daily for 3 days, 1/2 tab daily for 2 days PREDNISONE 23398744338 No Longer Active Adrián Varghese MD Active ZANTAC 75 75 MG ORAL TABLET take 1 po BID RANIT IDINE HCL 52053113866 No Longer Active Uriel BOYD Active BENZACLIN 1-5 % EXTERNAL GEL apply to skin BID prn for acne 2012 CLINDAMYCIN PHOS-BENZOYL PEROX 95984138840 No Longer Active Uriel BOYD Active BENZACLIN 1-5 % EXTERNAL GEL apply to skin BID prn for acne 2012 BENZACLIN 1-5 % EXTERNAL GEL 779497 CLINDAMYCIN PHOS-BE NZOYL PEROX Inactive MINOCYCLINE HCL 100 MG ORAL CAPSULE take one po BID 13/11/25 MINOCYCLINE HCL 100 MG ORAL CAPSULE 274275 MINOCYCLINE HCL Inac tive CLINDAMYCIN PHOSPHATE 2 % VAGINAL CREAM apply cream to acne BID prn CLINDAMYCIN PHOSPHATE 2 % VAGINAL CREAM 741756 CLINDAMY ANGELIA PHOSPHATE Inactive ULTRAM 50 MG ORAL TABLET take 1 tab po q 6 hrs prn headache pain ULTRAM 50 MG ORAL TABLET 494600 TRAMADOL HCL Inactiv e CYANOCOBALAMIN 1000 MCG/ML INJECTION SOLUTION 1 inject ion weekly for 1 month, than 1 a month for 2 months. recheck lab CYANOCOBALAMIN 1000 MCG/ML INJECTION SOLUTION 926180 CYANOCOBALAMIN Inactive CITALOPRAM HYDROBROMIDE 20 MG ORAL TABLET take 1 tab p o qday for depresion and anxiety. CITALOPRAM HYDROBROMIDE 20 MG ORAL TABLET 223608 CITALOPRAM HYDROBROMIDE Inactive PROZAC 10 MG ORAL CAPSULE Take 1 tab daily for 1 week. Then increase to 20mg daily. PROZAC 10 MG ORAL CAPSULE 801565 FLUOXETINE HCL Inactive ZANTAC 75 75 MG ORAL TABLET take 1 po BID ZANTAC 75 75 MG ORAL TABLET 347761 RANITIDINE HCL Inactive PREDNISONE 20 MG ORAL TABLET 2 tabs daily for 3 days, 1 tab daily for 3 days, 1/2 tab daily for 2 days PREDNISONE 20 MG ORAL T ABLET 657985 PREDNISONE Inactive ZITHROMAX 250 MG ORAL TABLET 2 po today, then 1 po q days 2-5 20 11/06/16 ZITHROMAX 250 MG ORAL TABLET 768925 AZITHROMYCIN [place] ctive ZITHROMAX 250 MG ORAL TABLET 2 po today, then 1 po q days 2-5 12/07/06 ZITHROMAX 250 MG ORAL TABLET 812217 AZITHROMYCIN [place] ctive Immunizations Vaccine Administration Date [...] Value Unit Range Description Lab Report: Chlamydia/GC APTIMA/29583 - Lab chlamydia DNA probe NOT DETECTED NOT DETECTED Lab Report: Chlamydia/GC APTIMA/09445 - Microbiology Neisseria gonorrhoeae DNA probe NOT DETECTED NO T DETECTED Lab Report: Comp. Metabolic Panel - Chem istry sodium, serum 141 mmol/L 271-406 8050/11/22 carbon dioxide, venous blood 25.2 mmol/L 21.0-32 .0 potassium, serum 3.8 mmol/L 3.5-5.2 chloride, serum 104 mmol/L 98-107 blood glucose 95 mg/dL 65-110 urea nitrogen, blood 15 mg/dL 7-18 creatinine, serum 0.79 mg/dL 0.60-1.30 alanine aminotransferase (SGPT), serum 28 U/L 10-55 aspartate aminotransferase (SGOT), serum 17 U/L 15-45 calcium, serum 8.9 mg/dL 8.5-10.1 bilirubin, serum, total 0.30 mg/dL 0.20-1.00 sodium, serum 139 mmol/L 440-187 9577/09/06 carbon dioxide, venous blood 25.3 mmol/L 21.0-32 [...] 5.0-8.5 Encounters Code Encounter Date Provider Facility CPT-32481 Level 3 Est. 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 Patient 11:35:37 TIME STAMP ASSEMBLER Cale morris [facility]-23144 Level 4 Est. Patient 11:10:55 CDT [facility]-29057 Level 4 Est. Patient 14:07:40 CDT [facility]-08247 Level 4 Est. Patient 13:54:09 CDT Adrián dyson MD [facility]-13485 Level 3 Est. Patient 09:22:14 CDT Adrián dyson MD [facility]-74047 Level 3 Est. Patient 08:59:31 CDT Adrián dyson MD [facility]-13754 Level 3 Est. Patient 11:58:31 CDT Adrián dyson MD [facility] CPT-96040 Level 3 Est. Patient 09:06:35 CDT Adrián dyson MD [facility] CPT-75014 Level 3 Est. Patient 09:18:45 CDT Adrián dyson MD [facility] CPT-50638 Level 3 Est. Patient 09:13:22 CDT Adrián dyson MD [facility] CPT-09592 Level 3 Est. Patient 18:04:31 TIME STAMP ASSEMBLER Adrián dyson MD [facility] CPT-35594 Level 4 Est. Patient 14:00:53 CDT Uriel bhatia [facility] CPT-82506 Level 3 Est. Patient 20:00:09 CDT Terry jenkins DO [facility] CPT-29833 Level 3 Est. Patient 08:45:08 CDT Uriel bhatia [facility] CPT-65777 Level 3 Est. Patient 09:09:26 CDT Uriel Ivy sriram [facility] CPT-33570 Level 3 Est. Patient 16:32:31 CDT Adrián dyson MD [facility] CPT-59959 Level 3 Est. Patient 09:35:27 TIME STAMP ASSEMBLER Norman fuentes [facility] CPT-73700 Level 2 Est. Patient 16:51:37 TIME STAMP ASSEMBLER Adrián dyson MD [facility] CPT-97744 Level 3 Est. Patient 10:00:11 TIME STAMP ASSEMBLER Ace Arriaza MD [facility] Procedures Code Procedure Name Date Entry Date Standard Desc ription CPT-14865 First Vx - Ix admin via ID I M or jet injects without counseling by physician 14:18:02 CDT CPT-32605 Gardasil 9 Intramuscular Suspension 1 4:18:02 CDT CPT-J3420 Vitamin B12 1000mcg (Cyanocobalamin) 16:30:23 CDT CPT-60498 Abx/Therapy Injection 16:30:23 CDT CPT-J3420 Vitamin B12 1000mcg (Cyanocobalamin) 16:09:42 CDT CPT-77539 Abx/Therapy Injection 16:09:42 CDT CPT-J3420 Vitamin B12 1000mcg (Cyanocobalamin) 15:22:47 CDT CPT-64164 Abx/Therapy Injection 15:22:47 CDT CPT-J3420 Vitamin B12 1000mcg (Cyanocobalamin) 17:00:35 CDT CPT-37351 Abx/Therapy Injection 17:00:35 CDT CPT-49201 First Vx - Ix admin via ID I M or jet injects without counseling by physician 16:04:17 TIME STAMP ASSEMBLER CPT-54857 Gardasil 9 Intramuscular Suspension 1 6:04:17 TIME STAMP ASSEMBLER CPT-40033 Venipuncture Draw Fee 09:40:26 CDT CPT-20858 [place] [facility] - LAB USE ONLY 09:40:26 CDT 11/30 CPT-71912 CBC with Diff - LAB USE ONLY 09:40:26 CDT 2 CPT-16234 Addl Vx - Ix admin via ID IM or jet injects without counseling by physician 09:40:21 CDT CPT-78321 Menactra Intramuscular Injectable 09:40:21 CDT CPT-98935 Addl Vx - Ix admin via ID IM or jet injects without counseling by physician 09:40:21 CDT CPT-34815 Gardasil 9 Intramuscular Suspension 0 9:40:21 CDT CPT-74752 First Vx - Ix admin via ID I M or jet injects without counseling by physician 09:40:21 CDT CPT-81747 Havrix Intramuscular Suspension 720 EL U /0.5ML 09:40:21 CDT CPT-J2930 Solu Medrol 125 mg (Methyl Prednisolone Sodium Succinate) 09:43:26 CDT CPT-59296 Abx/Therapy Injection 09:43:26 CDT CPT-J2930 Solu Medrol 125 mg (Methyl Prednisolone Sodium Succinate) 09:05:55 CDT CPT-57765 Abx/Therapy Injection 09:05:55 CDT CPT-68642 Venipuncture Draw Fee 14:01:33 CDT CPT-71652 EKG Trac and Interp 11:22:04 CDT CPT-15946 Venipuncture Draw Fee 10:53:35 CDT CPT-J2930 Solu Medrol 125 mg (Methyl Prednisolone Sodium Succinate) 09:29:26 CDT CPT-85702 Abx/Therapy Injection 09:29:26 CDT CPT-Cryo Cryotherapy 16:51:37 TIME STAMP ASSEMBLER
--- OUTSIDE RECORDS SUMMARY | 2019-07-22 19:34 | XMS REPORT | Clinical Summary ---
Author Author Yovanny, Clarisa Christopher Organization [facility] Address Unknown Phone Unavailable Allergies, Adverse [...] twice daily, for anxiety 2016 BUSPIRONE HCL 05816395412 Active Shannan Gibbs APRN Active PROZAC 20 MG CAP Take 1 tab daily. FLUOXETINE HCL 23995051429 Active Shannan Gibbs APRN Active PROZAC 10 MG CAP Take 1 tab daily for 1 week. Then increa se to 20mg daily. FLUOXETINE HCL 69436431154 Active Shannan Gibbs APRN Active CITALOPRAM HYDROBROMIDE 20 MG ORAL TABS take 1 tab po qday for depresion and anxiety. CITALOPRAM HYDROBROMIDE 89423461931 No L onger Active Shannan Gibbs APRN Active CYANOCOBALAMIN 1000 MCG/ML INJ SOLN 1 injection weekly for 1 month, than 1 a month for 2 months. recheck lab CYANOCOBALAMIN 58567674726 No Longer Active Shannan Gibbs APRN Active ULTRAM 50 MG TAB 1 TAB PO Q 6 HRS PRN HEADACHE TRAMADOL HCL 65100337053 Active Adrián Varghese MD Active ULTRAM 50 MG TAB take 1 tab po q 6 hrs prn headache pain TRAMADOL HCL 51148334151 No Longer Active Adrián Varghese MD Acti ve CLINDAMYCIN PHOSPHATE 2 % CREA apply cream to acne BID prn 06/14 CLINDAMYCIN PHOSPHATE 48018618011 No Longer Active Adrián Joseph Active MINOCYCLINE HCL 100 MG CAPS take one po BID MINOCYCLINE HCL 17263358362 No Longer Active Adrián Varghese MD Acti ve TRI-SPRINTEC 0.18/0.215/0.25 MG-35 MCG TABS 1 po qd as directed 201 07/04/00 NORGESTIM-ETH ESTRAD TRIPHASIC 71833589136 Active Adrián Varghese MD Active ZITHROMAX 250 MG TAB 2 po today, then 1 po q days 2-5 AZITHROMYCIN 53716872639 No Longer Active Adrián Varghese MD Acti ve ZITHROMAX 250 MG TAB 2 po today, then 1 po q days 2-5 AZITHROMYCIN 35715736368 No Longer Active Adrián Varghese MD Acti ve PREDNISONE 20 MG TAB 2 tabs daily for 3 days, 1 t ab daily for 3 days, 1/2 tab daily for 2 days PREDNISONE 58836748748 No Longer Active Adrián Varghese MD Active ZANTAC 75 75 MG TABS take 1 po BID RANITIDINE H CL 22774551607 No Longer Active Uriel BOYD Active BENZACLIN 1-5 % GEL apply to skin BID prn for acne 201 05/05/14 CLINDAMYCIN PHOS-BENZOYL PEROX 96387117879 No Longer Active Uriel BYOD Active BENZACLIN 1-5 % GEL apply to skin BID prn for acne 201 05/05/14 BENZACLIN 1-5 % GEL 797253 CLINDAMYCIN PHOS-BENZOYL PEROX Inactive MINOCYCLINE HCL 100 MG CAPS take one po BID MINOCYCLINE HCL 100 MG CAPS 427874 MINOCYCLINE HCL Inactive CLINDAMYCIN PHOSPHATE 2 % CREA apply cream to acne BID prn 06/14 CLINDAMYCIN PHOSPHATE 2 % CREA 661102 CLINDAMYCIN PHOSP HATE Inactive ULTRAM 50 MG TAB take 1 tab po q 6 hrs prn headache pain ULTRAM 50 MG TAB 235586 TRAMADOL HCL Inactive CYANOCOBALAMIN 1000 MCG/ML INJ SOLN 1 injection weekly for 1 month, than 1 a month for 2 months. recheck lab CYANOCOB ALAMIN 1000 MCG/ML INJ SOLN 984082 CYANOCOBALAMIN Inactive CITALOPRAM HYDROBROMIDE 20 MG ORAL TABS take 1 tab po qday for depresion and anxiety. CITALOPRAM HYDROBROMIDE 20 MG ORAL TABS 2 04293 CITALOPRAM HYDROBROMIDE Inactive ZANTAC 75 75 MG TABS take 1 po BID ZANTAC 75 75 MG TABS 441638 RANITIDINE HCL Inactive PREDNISONE 20 MG TAB 2 tabs daily for 3 days, 1 t ab daily for 3 days, 1/2 tab daily for 2 days PREDNISONE 20 MG TAB 067774 PREDNISON E Inactive ZITHROMAX 250 MG TAB 2 po today, then 1 po q days 2-5 ZITHROMAX 250 MG TAB 3897841 AZITHROMYCIN Inactive ZITHROMAX 250 MG TAB 2 po today, then 1 po q days 2-5 ZITHROMAX 250 MG TAB 0628262 AZITHROMYCIN Inactive Immunizations Vaccine Administration Date Value [...] - Chem istry sodium, serum 139 mmol/L 569-322 3317/09/06 carbon dioxide, venous blood 25.3 mmol/L 21.0-32 [...] 0.20-1.00 Encounters Code Encounter Date Provider Facility CPT-79649 Level 4 Est. Patient 13:54:09 CDT Adrián dyson MD [facility] CPT-40688 Level 3 Est. Patient 09:22:14 CDT Adrián dyson MD [facility]-44448 Level 3 Est. Patient 08:59:31 CDT Adrián dyson MD [facility] CPT-05219 Level 3 Est. Patient 11:58:31 CDT Adrián dyson MD [facility] CPT-90491 Level 3 Est. Patient 09:06:35 CDT Adrián dyson MD [facility] CPT-11996 Level 3 Est. Patient 09:18:45 CDT Adrián dyson MD [facility] CPT-92229 Level 3 Est. Patient 09:13:22 CDT Adrián dyson MD [facility] CPT-44545 Level 3 Est. Patient 18:04:31 PLATE DRILLER Adrián dyson MD [facility] CPT-39241 Level 4 Est. Patient 14:00:53 CDT Uriel bhatia [facility] CPT-05095 Level 3 Est. Patient 20:00:09 CDT Terry jenkins DO [facility] CPT-62827 Level 3 Est. Patient 08:45:08 CDT Uriel bhatia [facility] CPT-24828 Level 3 Est. Patient 09:09:26 CDT Uriel bhatia [facility]-05372 Level 3 Est. Patient 16:32:31 CDT Adrián dyson MD [facility] CPT-20289 Level 3 Est. Patient 09:35:27 PLATE DRILLER Norman BOYD [facility] CPT-59470 Level 2 Est. Patient 16:51:37 PLATE DRILLER Adrián dyson MD [facility] CPT-02780 Level 3 Est. Patient 10:00:11 PLATE DRILLER Ace Arriaza MD [facility] Procedures Code Procedure Name Date Entry Date Standard Desc ription CPT-73486 First Vx - Ix admin via ID I M or jet injects without counseling by physician 14:18:02 CDT CPT-30387 Gardasil 9 Intramuscular Suspension 1 4:18:02 CDT CPT-J3420 Vitamin B12 1000mcg (Cyanocobalamin) 16:30:23 CDT CPT-77685 Abx/Therapy Injection 16:30:23 CDT CPT-J3420 Vitamin B12 1000mcg (Cyanocobalamin) 16:09:42 CDT CPT-01921 Abx/Therapy Injection 16:09:42 CDT CPT-J3420 Vitamin B12 1000mcg (Cyanocobalamin) 15:22:47 CDT CPT-13759 Abx/Therapy Injection 15:22:47 CDT CPT-J3420 Vitamin B12 1000mcg (Cyanocobalamin) 17:00:35 CDT CPT-23435 Abx/Therapy Injection 17:00:35 CDT CPT-24727 First Vx - Ix admin via ID I M or jet injects without counseling by physician 16:04:17 PLATE DRILLER CPT-63872 Gardasil 9 Intramuscular Suspension 1 6:04:17 PLATE DRILLER CPT-53141 Venipuncture Draw Fee 09:40:26 CDT CPT-00532 [place] [facility] - LAB USE ONLY 09:40:26 CDT 11/30 CPT-00904 CBC with Diff - LAB USE ONLY 09:40:26 CDT 2 CPT-09348 Addl Vx - Ix admin via ID IM or jet injects without counseling by physician 09:40:21 CDT CPT-25501 Menactra Intramuscular Injectable 09:40:21 CDT CPT-75350 Addl Vx - Ix admin via ID IM or jet injects without counseling by physician 09:40:21 CDT CPT-24172 Gardasil 9 Intramuscular Suspension 0 9:40:21 CDT CPT-73784 First Vx - Ix admin via ID I M or jet injects without counseling by physician 09:40:21 CDT CPT-53582 Havrix Intramuscular Suspension 720 EL U /0.5ML 09:40:21 CDT CPT-J2930 Solu Medrol 125 mg (Methyl Prednisolone Sodium Succinate) 09:43:26 CDT CPT-81876 Abx/Therapy Injection 09:43:26 CDT CPT-J2930 Solu Medrol 125 mg (Methyl Prednisolone Sodium Succinate) 09:05:55 CDT CPT-59696 Abx/Therapy Injection 09:05:55 CDT CPT-01483 Venipuncture Draw Fee 14:01:33 CDT CPT-79225 EKG Trac and Interp 11:22:04 CDT CPT-76359 Venipuncture Draw Fee 10:53:35 CDT CPT-J2930 Solu Medrol 125 mg (Methyl Prednisolone Sodium Succinate) 09:29:26 CDT CPT-33374 Abx/Therapy Injection 09:29:26 CDT CPT-Cryo Cryotherapy 16:51:37 PLATE DRILLER
--- OUTSIDE RECORDS SUMMARY | 2019-07-22 19:34 | XMS REPORT | Clinical Summary ---
Author Author Yovanny, Clarisa Christopher Organization [facility] Address Unknown Phone Unavailable Allergies, Adverse [...] Then increase to 20mg daily. FLUOXETINE HCL 33678800144 No Longer Active Yulissa Gibbs APRN Active PROZAC 20 MG ORAL CAPSULE Take 1 tab daily FLUO XETINE HCL 82100749690 Active Shannan Gibbs APRN Active BUSPIRONE HCL 7.5 MG ORAL TABLET 1 pill twice daily, for anxiety 20 14/11/05 BUSPIRONE HCL 72558281879 Active Shannan Gibbs APRN Active CITALOPRAM HYDROBROMIDE 20 MG ORAL TABLET take 1 tab p o qday for depresion and anxiety. CITALOPRAM HYDROBROMIDE 34746557592 No L onger Active Shannan Gibbs APRN Active CYANOCOBALAMIN 1000 MCG/ML INJECTION SOLUTION 1 inject ion weekly for 1 month, than 1 a month for 2 months. recheck lab CYANOCO BALAMIN 38484594174 No Longer Active Shannan Gibbs APRN Active ULTRAM 50 MG ORAL TABLET 1 TAB PO Q 6 HRS PRN HEADACHE TRAMADOL HCL 61258900273 Active Adrián Varghese MD Active ULTRAM 50 MG ORAL TABLET take 1 tab po q 6 hrs prn headache pain TRAMADOL HCL 56724109922 No Longer Active Adrián Varghese MD Active CLINDAMYCIN PHOSPHATE 2 % VAGINAL CREAM apply cream to acne BID prn CLINDAMYCIN PHOSPHATE 81778152582 No Longer Active Adrián dyson MD Active MINOCYCLINE HCL 100 MG ORAL CAPSULE take one po BID 20 13/11/25 MINOCYCLINE HCL 92604699811 No Longer Active Adrián Varghese MD A ctive TRI-SPRINTEC 0.18/0.215/0.25 MG-35 MCG ORAL TABLET 1 po qd a s directed NORGESTIM-ETH ESTRAD TRIPHASIC 29060865655 Active Adrián Varghese MD Active ZITHROMAX 250 MG ORAL TABLET 2 po today, then 1 po q days 2-5 20 12/07/06 AZITHROMYCIN 74988618019 No Longer Active Adrián Varghese MD Active ZITHROMAX 250 MG ORAL TABLET 2 po today, then 1 po q days 2-5 20 11/06/16 AZITHROMYCIN 10667827644 No Longer Active Adrián Varghese MD Active PREDNISONE 20 MG ORAL TABLET 2 tabs daily for 3 days, 1 tab daily for 3 days, 1/2 tab daily for 2 days PREDNISONE 71592767639 No Longer Active Adrián Varghese MD Active ZANTAC 75 75 MG ORAL TABLET take 1 po BID RANIT IDINE HCL 24286466493 No Longer Active Uriel BOYD Active BENZACLIN 1-5 % EXTERNAL GEL apply to skin BID prn for acne 2012 CLINDAMYCIN PHOS-BENZOYL PEROX 98606060421 No Longer Active Uriel BOYD Active BENZACLIN 1-5 % EXTERNAL GEL apply to skin BID prn for acne 2012 BENZACLIN 1-5 % EXTERNAL GEL 566494 CLINDAMYCIN PHOS-BE NZOYL PEROX Inactive MINOCYCLINE HCL 100 MG ORAL CAPSULE take one po BID 13/11/25 MINOCYCLINE HCL 100 MG ORAL CAPSULE 165231 MINOCYCLINE HCL Inac tive CLINDAMYCIN PHOSPHATE 2 % VAGINAL CREAM apply cream to acne BID prn CLINDAMYCIN PHOSPHATE 2 % VAGINAL CREAM 365132 CLINDAMY ANGELIA PHOSPHATE Inactive ULTRAM 50 MG ORAL TABLET take 1 tab po q 6 hrs prn headache pain ULTRAM 50 MG ORAL TABLET 957102 TRAMADOL HCL Inactiv e CYANOCOBALAMIN 1000 MCG/ML INJECTION SOLUTION 1 inject ion weekly for 1 month, than 1 a month for 2 months. recheck lab CYANOCOBALAMIN 1000 MCG/ML INJECTION SOLUTION 938895 CYANOCOBALAMIN Inactive CITALOPRAM HYDROBROMIDE 20 MG ORAL TABLET take 1 tab p o qday for depresion and anxiety. CITALOPRAM HYDROBROMIDE 20 MG ORAL TABLET 231922 CITALOPRAM HYDROBROMIDE Inactive PROZAC 10 MG ORAL CAPSULE Take 1 tab daily for 1 week. Then increase to 20mg daily. PROZAC 10 MG ORAL CAPSULE 297446 FLUOXETINE HCL Inactive ZANTAC 75 75 MG ORAL TABLET take 1 po BID ZANTAC 75 75 MG ORAL TABLET 908176 RANITIDINE HCL Inactive PREDNISONE 20 MG ORAL TABLET 2 tabs daily for 3 days, 1 tab daily for 3 days, 1/2 tab daily for 2 days PREDNISONE 20 MG ORAL T ABLET 598264 PREDNISONE Inactive ZITHROMAX 250 MG ORAL TABLET 2 po today, then 1 po q days 2-5 20 11/06/16 ZITHROMAX 250 MG ORAL TABLET 971158 AZITHROMYCIN [place] ctive ZITHROMAX 250 MG ORAL TABLET 2 po today, then 1 po q days 2-5 20 12/07/06 ZITHROMAX 250 MG ORAL TABLET 909314 AZITHROMYCIN [place] ctive Immunizations Vaccine Administration Date [...] Value Unit Range Description Lab Report: Chlamydia/GC APTIMA/12284 - Lab chlamydia DNA probe NOT DETECTED NOT DETECTED Lab Report: Chlamydia/GC [facility]TIM[facility]/12995 - Microbiology Neisseria gonorrhoeae DNA probe NOT DETECTED NO T DETECTED Lab Report: Comp. Metabolic Panel - Chem istry sodium, serum 141 mmol/L 893-126 8092/11/22 carbon dioxide, venous blood 25.2 mmol/L 21.0-32 .0 potassium, serum 3.8 mmol/L 3.5-5.2 chloride, serum 104 mmol/L 98-107 blood glucose 95 mg/dL 65-110 urea nitrogen, blood 15 mg/dL 7-18 creatinine, serum 0.79 mg/dL 0.60-1.30 alanine aminotransferase (SGPT), serum 28 U/L 10-55 aspartate aminotransferase (SGOT), serum 17 U/L 15-45 calcium, serum 8.9 mg/dL 8.5-10.1 bilirubin, serum, total 0.30 mg/dL 0.20-1.00 sodium, serum 139 mmol/L 128-191 1975/09/06 carbon dioxide, venous blood 25.3 mmol/L 21.0-32 [...] 5.0-8.5 Encounters Code Encounter Date Provider Facility [facility]-21763 Level 3 Est. Patient 10:07:39 CHISELER HEAD Cale morris [facility]53300 Level 3 Est. Patient 11:35:37 CHISELER HEAD Cale morris [facility]-14986 Level 4 Est. Patient 11:10:55 CDT Shannan Lazcano [facility]-26006 Level 4 Est. Patient 14:07:40 CDT [facility]-36635 Level 4 Est. Patient 13:54:09 CDT Adrián dyson MD [facility]96307 Level 3 Est. Patient 09:22:14 CDT Adrián dyson MD [facility]82927 Level 3 Est. Patient 08:59:31 CDT Adrián dyson MD [facility]83155 Level 3 Est. Patient 11:58:31 CDT Adrián dyson MD [facility]-28869 Level 3 Est. Patient 09:06:35 CDT Adrián dyson MD [facility]-07641 Level 3 Est. Patient 09:18:45 CDT Adrián dyson MD [facility]-98814 Level 3 Est. Patient 09:13:22 CDT Adrián dyson MD [facility]-15874 Level 3 Est. Patient 18:04:31 CHISELER HEAD Adrián dyson MD [facility]-46912 Level 4 Est. Patient 14:00:53 CDT Uriel bhatia [facility] CPT-99670 Level 3 Est. Patient 20:00:09 CDT Terry Elisha Sachin jenkins DO [facility] CPT-09959 Level 3 Est. Patient 08:45:08 CDT Uriel bhatia [facility] CPT-51946 Level 3 Est. Patient 09:09:26 CDT Uriel bhatia [facility] CPT-13537 Level 3 Est. Patient 16:32:31 CDT Adrián dyson MD [facility] CPT-50834 Level 3 Est. Patient 09:35:27 CHISELER HEAD Norman fuentes [facility] CPT-70905 Level 2 Est. Patient 16:51:37 CHISELER HEAD Adrián dyson MD [facility] CPT-75229 Level 3 Est. Patient 10:00:11 CHISELER HEAD Ace Arriaza MD [facility] Procedures Code Procedure Name Date Entry Date Standard Desc ription CPT-64140 First Vx - Ix admin via ID I M or jet injects without counseling by physician 14:18:02 CDT CPT-55102 Gardasil 9 Intramuscular Suspension 1 4:18:02 CDT CPT-J3420 Vitamin B12 1000mcg (Cyanocobalamin) 16:30:23 CDT CPT-88632 Abx/Therapy Injection 16:30:23 CDT CPT-J3420 Vitamin B12 1000mcg (Cyanocobalamin) 16:09:42 CDT CPT-79538 Abx/Therapy Injection 16:09:42 CDT CPT-J3420 Vitamin B12 1000mcg (Cyanocobalamin) 15:22:47 CDT CPT-44241 Abx/Therapy Injection 15:22:47 CDT CPT-J3420 Vitamin B12 1000mcg (Cyanocobalamin) 17:00:35 CDT CPT-92142 Abx/Therapy Injection 17:00:35 CDT CPT-44791 First Vx - Ix admin via ID I M or jet injects without counseling by physician 16:04:17 CHISELER HEAD CPT-42314 Gardasil 9 Intramuscular Suspension 1 6:04:17 CHISELER HEAD CPT-22604 Venipuncture Draw Fee 09:40:26 CDT CPT-05130 [place] [facility] - LAB USE ONLY 09:40:26 CDT 11/30 CPT-27522 CBC with Diff - LAB USE ONLY 09:40:26 CDT 2 CPT-76102 Addl Vx - Ix admin via ID IM or jet injects without counseling by physician 09:40:21 CDT CPT-60387 Menactra Intramuscular Injectable 09:40:21 CDT CPT-74992 Addl Vx - Ix admin via ID IM or jet injects without counseling by physician 09:40:21 CDT CPT-82833 Gardasil 9 Intramuscular Suspension 0 9:40:21 CDT CPT-17849 First Vx - Ix admin via ID I M or jet injects without counseling by physician 09:40:21 CDT CPT-97019 Havrix Intramuscular Suspension 720 EL U /0.5ML 09:40:21 CDT CPT-J2930 Solu Medrol 125 mg (Methyl Prednisolone Sodium Succinate) 09:43:26 CDT CPT-31052 Abx/Therapy Injection 09:43:26 CDT CPT-J2930 Solu Medrol 125 mg (Methyl Prednisolone Sodium Succinate) 09:05:55 CDT CPT-20127 Abx/Therapy Injection 09:05:55 CDT CPT-96900 Venipuncture Draw Fee 14:01:33 CDT CPT-73777 EKG Trac and Interp 11:22:04 CDT CPT-40107 Venipuncture Draw Fee 10:53:35 CDT CPT-J2930 Solu Medrol 125 mg (Methyl Prednisolone Sodium Succinate) 09:29:26 CDT CPT-03245 Abx/Therapy Injection 09:29:26 CDT CPT-Cryo Cryotherapy 16:51:37 CHISELER HEAD
--- OUTSIDE RECORDS SUMMARY | 2019-07-22 19:34 | XMS REPORT | Clinical Summary ---
Author Author Yovanny, Clarisa Christopher Organization [facility] Address Unknown Phone Unavailable Allergies, Adverse [...] Q 6 HRS PRN HEADACHE TRAMADOL HCL 06292873735 Active Adrián Varghese MD Active CYANOCOBALAMIN 1000 MCG/ML INJ SOLN 1 injection weekly for 1 month, than 1 a month for 2 months. recheck lab CYANOCOBALAMIN 78280807270 Active Samreen Cristo Active CITALOPRAM HYDROBROMIDE 20 MG ORAL TABS take 1 tab po qday for depresion and anxiety. CITALOPRAM HYDROBROMIDE 85440108463 Active Adrián Varghese MD Active ULTRAM 50 MG TAB take 1 tab po q 6 hrs prn headache pain TRAMADOL HCL 99116839762 No Longer Active Adrián Varghese MD Acti ve CLINDAMYCIN PHOSPHATE 2 % CREA apply cream to acne BID prn 06/14 CLINDAMYCIN PHOSPHATE 79640682522 No Longer Active Adrián Joseph Active MINOCYCLINE HCL 100 MG CAPS take one po BID MINOCYCLINE HCL 45889413427 No Longer Active Adrián Varghese MD Acti ve TRI-SPRINTEC 0.18/0.215/0.25 MG-35 MCG TABS 1 po qd as directed 201 07/04/00 NORGESTIM-ETH ESTRAD TRIPHASIC 95245740211 Active Adrián Varghese MD Active ZITHROMAX 250 MG TAB 2 po today, then 1 po q days 2-5 AZITHROMYCIN 44709934619 No Longer Active Adrián Varghese MD Acti ve ZITHROMAX 250 MG TAB 2 po today, then 1 po q days 2-5 AZITHROMYCIN 41056624520 No Longer Active Adrián Varghese MD Acti ve PREDNISONE 20 MG TAB 2 tabs daily for 3 days, 1 t ab daily for 3 days, 1/2 tab daily for 2 days PREDNISONE 76560446999 No Longer Active Adrián Varghese MD Active ZANTAC 75 75 MG TABS take 1 po BID RANITIDINE H CL 03507226974 No Longer Active Uriel BOYD Active BENZACLIN 1-5 % GEL apply to skin BID prn for acne 201 05/05/14 CLINDAMYCIN PHOS-BENZOYL PEROX 50921105369 No Longer Active Uriel BOYD Active BENZACLIN 1-5 % GEL apply to skin BID prn for acne 201 05/05/14 BENZACLIN 1-5 % GEL 077133 CLINDAMYCIN PHOS-BENZOYL PEROX Inactive MINOCYCLINE HCL 100 MG CAPS take one po BID MINOCYCLINE HCL 100 MG CAPS 123799 MINOCYCLINE HCL Inactive CLINDAMYCIN PHOSPHATE 2 % CREA apply cream to acne BID prn 06/14 CLINDAMYCIN PHOSPHATE 2 % CREA 018066 CLINDAMYCIN PHOSP HATE Inactive ULTRAM 50 MG TAB take 1 tab po q 6 hrs prn headache pain ULTRAM 50 MG TAB 468778 TRAMADOL HCL Inactive ZANTAC 75 75 MG TABS take 1 po BID ZANTAC 75 75 MG TABS 458926 RANITIDINE HCL Inactive PREDNISONE 20 MG TAB 2 tabs daily for 3 days, 1 t ab daily for 3 days, 1/2 tab daily for 2 days PREDNISONE 20 MG TAB 728883 PREDNISON E Inactive ZITHROMAX 250 MG TAB 2 po today, then 1 po q days 2-5 ZITHROMAX 250 MG TAB 8869087 AZITHROMYCIN Inactive ZITHROMAX 250 MG TAB 2 po today, then 1 po q days 2-5 ZITHROMAX 250 MG TAB 6382521 AZITHROMYCIN Inactive Immunizations Vaccine Administration Date Value [...] 142-424 Encounters Code Encounter Date Provider Facility CPT-57273 Level 4 Est. Patient 13:54:09 CDT Adrián dyson MD [facility] CPT-46736 Level 3 Est. Patient 09:22:14 CDT Adrián dyson MD [facility]-27262 Level 3 Est. Patient 08:59:31 CDT Adrián dyson MD [facility]-08790 Level 3 Est. Patient 11:58:31 CDT Adrián dyson MD [facility] CPT-93229 Level 3 Est. Patient 09:06:35 CDT Adrián dyson MD [facility] CPT-54756 Level 3 Est. Patient 09:18:45 CDT Adrián dyson MD [facility] CPT-02057 Level 3 Est. Patient 09:13:22 CDT Adrián dyson MD [facility] CPT-60027 Level 3 Est. Patient 18:04:31 INSIDE [employer] Adrián dyson MD [facility] CPT-95894 Level 4 Est. Patient 14:00:53 CDT Uriel bhatia [facility] CPT-94725 Level 3 Est. Patient 20:00:09 CDT Terry jenkins DO [facility] CPT-16530 Level 3 Est. Patient 08:45:08 CDT Uriel bhatia [facility] CPT-99398 Level 3 Est. Patient 09:09:26 CDT Uriel bhatia [facility]-99865 Level 3 Est. Patient 16:32:31 CDT Adrián dyson MD [facility] CPT-21105 Level 3 Est. Patient 09:35:27 INSIDE [employer] Norman BOYD [facility] CPT-09235 Level 2 Est. Patient 16:51:37 INSIDE [employer] Adrián dyson MD [facility] CPT-66662 Level 3 Est. Patient 10:00:11 INSIDE [employer]REL [employer]ISHER Ace Arriaza MD [facility] Procedures Code Procedure Name Date Entry Date Standard Desc ription CPT-53654 First Vx - Ix admin via ID I M or jet injects without counseling by physician 14:18:02 CDT CPT-96474 Gardasil 9 Intramuscular Suspension 1 4:18:02 CDT CPT-J3420 Vitamin B12 1000mcg (Cyanocobalamin) 16:30:23 CDT CPT-18203 Abx/Therapy Injection 16:30:23 CDT CPT-J3420 Vitamin B12 1000mcg (Cyanocobalamin) 16:09:42 CDT CPT-09512 Abx/Therapy Injection 16:09:42 CDT CPT-J3420 Vitamin B12 1000mcg (Cyanocobalamin) 15:22:47 CDT CPT-99030 Abx/Therapy Injection 15:22:47 CDT CPT-J3420 Vitamin B12 1000mcg (Cyanocobalamin) 17:00:35 CDT CPT-87501 Abx/Therapy Injection 17:00:35 CDT CPT-37379 First Vx - Ix admin via ID I M or jet injects without counseling by physician 16:04:17 [employer] CPT-78234 Gardasil 9 Intramuscular Suspension 1 6:04:17 [employer] CPT-13283 Venipuncture Draw Fee 09:40:26 CDT CPT-98928 [place] - LAB USE ONLY 09:40:26 CDT 11/30 CPT-05345 CBC with Diff - LAB USE ONLY 09:40:26 CDT 2 CPT-80538 Addl Vx - Ix admin via ID IM or jet injects without counseling by physician 09:40:21 CDT CPT-75126 Menactra Intramuscular Injectable 09:40:21 CDT CPT-53195 Addl Vx - Ix admin via ID IM or jet injects without counseling by physician 09:40:21 CDT CPT-07950 Gardasil 9 Intramuscular Suspension 0 9:40:21 CDT CPT-70570 First Vx - Ix admin via ID I M or jet injects without counseling by physician 09:40:21 CDT CPT-88503 Havrix Intramuscular Suspension 720 EL U /0.5ML 09:40:21 CDT CPT-J2930 Solu Medrol 125 mg (Methyl Prednisolone Sodium Succinate) 09:43:26 CDT CPT-11604 Abx/Therapy Injection 09:43:26 CDT CPT-J2930 Solu Medrol 125 mg (Methyl Prednisolone Sodium Succinate) 09:05:55 CDT CPT-38309 Abx/Therapy Injection 09:05:55 CDT CPT-22190 Venipuncture Draw Fee 14:01:33 CDT CPT-30227 EKG Trac and Interp 11:22:04 CDT CPT-41734 Venipuncture Draw Fee 10:53:35 CDT CPT-J2930 Solu Medrol 125 mg (Methyl Prednisolone Sodium Succinate) 09:29:26 CDT CPT-44466 Abx/Therapy Injection 09:29:26 CDT CPT-Cryo Cryotherapy 16:51:37 INSIDE [employer]
--- OUTSIDE RECORDS SUMMARY | 2019-07-22 19:34 | XMS REPORT | Clinical Summary ---
Author Author Yovanny, Clarisa Christopher Organization [facility] Address Unknown Phone Unavailable Allergies, [...] twice daily, for anxiety 2016 BUSPIRONE HCL 44878581789 Active Shannan Gibbs APRN Active PROZAC 20 MG CAP Take 1 tab daily. FLUOXETINE HCL 71327228062 Active Shannan Gibbs APRN Active PROZAC 10 MG CAP Take 1 tab daily for 1 week. Then increa se to 20mg daily. FLUOXETINE HCL 69597571252 Active Shannan Gibbs APRN Active CITALOPRAM HYDROBROMIDE 20 MG ORAL TABS take 1 tab po qday for depresion and anxiety. CITALOPRAM HYDROBROMIDE 16728011295 No L onger Active Shannan Gibbs APRN Active CYANOCOBALAMIN 1000 MCG/ML INJ SOLN 1 injection weekly for 1 month, than 1 a month for 2 months. recheck lab CYANOCOBALAMIN 15874585606 No Longer Active Shannan Gibbs APRN Active ULTRAM 50 MG TAB 1 TAB PO Q 6 HRS PRN HEADACHE TRAMADOL HCL 99306754747 Active Adrián Varghese MD Active ULTRAM 50 MG TAB take 1 tab po q 6 hrs prn headache pain TRAMADOL HCL 24209617231 No Longer Active Adrián Varghese MD Acti ve CLINDAMYCIN PHOSPHATE 2 % CREA apply cream to acne BID prn 06/14 CLINDAMYCIN PHOSPHATE 43437136577 No Longer Active Adrián Joseph Active MINOCYCLINE HCL 100 MG CAPS take one po BID MINOCYCLINE HCL 93620741436 No Longer Active Adrián Varghese MD Acti ve TRI-SPRINTEC 0.18/0.215/0.25 MG-35 MCG TABS 1 po qd as directed 201 07/04/00 NORGESTIM-ETH ESTRAD TRIPHASIC 79285695592 Active Shannan Gibbs TOE SEWER Active ZITHROMAX 250 MG TAB 2 po today, then 1 po q days 2-5 AZITHROMYCIN 54361323182 No Longer Active Adrián Varghese MD Acti ve ZITHROMAX 250 MG TAB 2 po today, then 1 po q days 2-5 AZITHROMYCIN 71514526039 No Longer Active Adrián Varghese MD Acti ve PREDNISONE 20 MG TAB 2 tabs daily for 3 days, 1 t ab daily for 3 days, 1/2 tab daily for 2 days PREDNISONE 53437910618 No Longer Active Adrián Varghese MD Active ZANTAC 75 75 MG TABS take 1 po BID RANITIDINE H CL 74557077913 No Longer Active Uriel BOYD Active BENZACLIN 1-5 % GEL apply to skin BID prn for acne 201 05/05/14 CLINDAMYCIN PHOS-BENZOYL PEROX 04412344993 No Longer Active Uriel BOYD Active BENZACLIN 1-5 % GEL apply to skin BID prn for acne 201 05/05/14 BENZACLIN 1-5 % GEL 131841 CLINDAMYCIN PHOS-BENZOYL PEROX Inactive MINOCYCLINE HCL 100 MG CAPS take one po BID MINOCYCLINE HCL 100 MG CAPS 510187 MINOCYCLINE HCL Inactive CLINDAMYCIN PHOSPHATE 2 % CREA apply cream to acne BID prn 06/14 CLINDAMYCIN PHOSPHATE 2 % CREA 369684 CLINDAMYCIN PHOSP HATE Inactive ULTRAM 50 MG TAB take 1 tab po q 6 hrs prn headache pain ULTRAM 50 MG TAB 687511 TRAMADOL HCL Inactive CYANOCOBALAMIN 1000 MCG/ML INJ SOLN 1 injection weekly for 1 month, than 1 a month for 2 months. recheck lab CYANOCOB ALAMIN 1000 MCG/ML INJ SOLN 831668 CYANOCOBALAMIN Inactive CITALOPRAM HYDROBROMIDE 20 MG ORAL TABS take 1 tab po qday for depresion and anxiety. CITALOPRAM HYDROBROMIDE 20 MG ORAL TABS 2 92865 CITALOPRAM HYDROBROMIDE Inactive ZANTAC 75 75 MG TABS take 1 po BID ZANTAC 75 75 MG TABS 435359 RANITIDINE HCL Inactive PREDNISONE 20 MG TAB 2 tabs daily for 3 days, 1 t ab daily for 3 days, 1/2 tab daily for 2 days PREDNISONE 20 MG TAB 445202 PREDNISON E Inactive ZITHROMAX 250 MG TAB 2 po today, then 1 po q days 2-5 ZITHROMAX 250 MG TAB 861906 AZITHROMYCIN Inactive ZITHROMAX 250 MG TAB 2 po today, then 1 po q days 2-5 ZITHROMAX 250 MG TAB 956627 AZITHROMYCIN Inactive Immunizations Vaccine Administration Date Value [...] - Chem istry sodium, serum 139 mmol/L 242-887 1272/09/06 carbon dioxide, venous blood 25.3 mmol/L 21.0-32 [...] 0.20-1.00 Encounters Code Encounter Date Provider Facility CPT-55517 Level 4 Est. Patient 14:07:[address] [facility] CPT-23802 Level 4 Est. Patient 13:54:09 CDT Adrián dyson MD [facility] CPT-03521 Level 3 Est. Patient 09:22:14 CDT Adrián dyson MD [facility] CPT-76454 Level 3 Est. Patient 08:59:31 CDT Adrián dyson MD [facility] CPT-75913 Level 3 Est. Patient 11:58:31 CDT Adrián dyson MD [facility] CPT-68932 Level 3 Est. Patient 09:06:35 CDT Adrián dyson MD [facility] CPT-78045 Level 3 Est. Patient 09:18:45 CDT Adrián dyson MD [facility] CPT-61438 Level 3 Est. Patient 09:13:22 CDT Adrián dyson MD [facility] CPT-82991 Level 3 Est. 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 CPT-61372 Level 4 Est. Patient 14:00:53 CDT Uriel BOYD [facility] CPT-40416 Level 3 Est. Patient 20:00:09 CDT Terry jenkins DO [facility] CPT-28361 Level 3 Est. Patient 08:45:08 CDT Uriel bhatia [facility] CPT-09833 Level 3 Est. Patient 09:09:26 CDT Uriel bhatia [facility] CPT-37064 Level 3 Est. Patient 16:32:31 CDT Adrián dyson MD [facility] CPT-75517 Level 3 Est. Patient 09:35:27 PANEL FITTER Norman fuentes [facility] CPT-58507 Level 2 Est. Patient 16:51:37 PANEL FITTER Adrián dyson MD [facility] CPT-91586 Level 3 Est. Patient 10:00:11 PANEL FITTER Ace Arriaza MD [facility] Procedures Code Procedure Name Date Entry Date Standard Desc ription CPT-95399 First Vx - Ix admin via ID I M or jet injects without counseling by physician 14:18:02 CDT CPT-08448 Gardasil 9 Intramuscular Suspension 1 4:18:02 CDT CPT-J3420 Vitamin B12 1000mcg (Cyanocobalamin) 16:30:23 CDT CPT-75780 Abx/Therapy Injection 16:30:23 CDT CPT-J3420 Vitamin B12 1000mcg (Cyanocobalamin) 16:09:42 CDT CPT-33694 Abx/Therapy Injection 16:09:42 CDT CPT-J3420 Vitamin B12 1000mcg (Cyanocobalamin) 15:22:47 CDT CPT-07345 Abx/Therapy Injection 15:22:47 CDT CPT-J3420 Vitamin B12 1000mcg (Cyanocobalamin) 17:00:35 CDT CPT-99862 Abx/Therapy Injection 17:00:35 CDT CPT-28727 First Vx - Ix admin via ID I M or jet injects without counseling by physician 16:04:17 PANEL FITTER CPT-41715 Gardasil 9 Intramuscular Suspension 1 6:04:17 PANEL FITTER CPT-95836 Venipuncture Draw Fee 09:40:26 CDT CPT-02107 [place] [facility] - LAB USE ONLY 09:40:26 CDT 11/30 CPT-47263 CBC with Diff - LAB USE ONLY 09:40:26 CDT 2 CPT-10051 Addl Vx - Ix admin via ID IM or jet injects without counseling by physician 09:40:21 CDT CPT-48337 Menactra Intramuscular Injectable 09:40:21 CDT CPT-84070 Addl Vx - Ix admin via ID IM or jet injects without counseling by physician 09:40:21 CDT CPT-87938 Gardasil 9 Intramuscular Suspension 0 9:40:21 CDT CPT-02434 First Vx - Ix admin via ID I M or jet injects without counseling by physician 09:40:21 CDT CPT-53561 Havrix Intramuscular Suspension 720 EL U /0.5ML 09:40:21 CDT CPT-J2930 Solu Medrol 125 mg (Methyl Prednisolone Sodium Succinate) 09:43:26 CDT CPT-52146 Abx/Therapy Injection 09:43:26 CDT CPT-J2930 Solu Medrol 125 mg (Methyl Prednisolone Sodium Succinate) 09:05:55 CDT CPT-04014 Abx/Therapy Injection 09:05:55 CDT CPT-20204 Venipuncture Draw Fee 14:01:33 CDT CPT-27411 EKG Trac and Interp 11:22:04 CDT CPT-35472 Venipuncture Draw Fee 10:53:35 CDT CPT-J2930 Solu Medrol 125 mg (Methyl Prednisolone Sodium Succinate) 09:29:26 CDT CPT-25285 Abx/Therapy Injection 09:29:26 CDT CPT-Cryo Cryotherapy 16:51:37 PANEL FITTER
--- OUTSIDE RECORDS SUMMARY | 2019-07-22 19:35 | XMS REPORT | Clinical Summary ---
[...] twice daily, for anxiety 2016 BUSPIRONE HCL 58762731772 Active Shannan Gibbs APRN Active PROZAC 20 MG CAP Take 1 tab daily. FLUOXETINE HCL 74534209260 Active Shannan Gibbs APRN Active PROZAC 10 MG CAP Take 1 tab daily for 1 week. Then increa se to 20mg daily. FLUOXETINE HCL 86583928690 Active Shannan Gibbs APRN Active CITALOPRAM HYDROBROMIDE 20 MG ORAL TABS take 1 tab po qday for depresion and anxiety. CITALOPRAM HYDROBROMIDE 87043922233 No L onger Active Shannan Gibbs APRN Active CYANOCOBALAMIN 1000 MCG/ML INJ SOLN 1 injection weekly for 1 month, than 1 a month for 2 months. recheck lab CYANOCOBALAMIN 63339826760 No Longer Active Shannan Gibbs APRN Active ULTRAM 50 MG TAB 1 TAB PO Q 6 HRS PRN HEADACHE TRAMADOL HCL 02636385095 Active Adrián Varghese MD Active ULTRAM 50 MG TAB take 1 tab po q 6 hrs prn headache pain TRAMADOL HCL 20794272253 No Longer Active Adrián Varghese MD Acti ve CLINDAMYCIN PHOSPHATE 2 % CREA apply cream to acne BID prn 06/14 CLINDAMYCIN PHOSPHATE 40351009570 No Longer Active Adrián Joseph Active MINOCYCLINE HCL 100 MG CAPS take one po BID MINOCYCLINE HCL 31248924437 No Longer Active Adrián Varghese MD Acti ve TRI-SPRINTEC 0.18/0.215/0.25 MG-35 MCG TABS 1 po qd as directed 201 07/04/00 NORGESTIM-ETH ESTRAD TRIPHASIC 83173201159 Active Adrián Varghese MD Active ZITHROMAX 250 MG TAB 2 po today, then 1 po q days 2-5 AZITHROMYCIN 00371788527 No Longer Active Adrián Varghese MD Acti ve ZITHROMAX 250 MG TAB 2 po today, then 1 po q days 2-5 AZITHROMYCIN 33198575123 No Longer Active Adrián Varghese MD Acti ve PREDNISONE 20 MG TAB 2 tabs daily for 3 days, 1 t ab daily for 3 days, 1/2 tab daily for 2 days PREDNISONE 50442927731 No Longer Active Adrián Varghese MD Active ZANTAC 75 75 MG TABS take 1 po BID RANITIDINE H CL 82914836262 No Longer Active Uriel BOYD Active BENZACLIN 1-5 % GEL apply to skin BID prn for acne 201 05/05/14 CLINDAMYCIN PHOS-BENZOYL PEROX 28372038560 No Longer Active Uriel BOYD Active BENZACLIN 1-5 % GEL apply to skin BID prn for acne 201 05/05/14 BENZACLIN 1-5 % GEL 950673 CLINDAMYCIN PHOS-BENZOYL PEROX Inactive MINOCYCLINE HCL 100 MG CAPS take one po BID MINOCYCLINE HCL 100 MG CAPS 103863 MINOCYCLINE HCL Inactive CLINDAMYCIN PHOSPHATE 2 % CREA apply cream to acne BID prn 06/14 CLINDAMYCIN PHOSPHATE 2 % CREA 796118 CLINDAMYCIN PHOSP HATE Inactive ULTRAM 50 MG TAB take 1 tab po q 6 hrs prn headache pain ULTRAM 50 MG TAB 265580 TRAMADOL HCL Inactive CYANOCOBALAMIN 1000 MCG/ML INJ SOLN 1 injection weekly for 1 month, than 1 a month for 2 months. recheck lab CYANOCOB ALAMIN 1000 MCG/ML INJ SOLN 840339 CYANOCOBALAMIN Inactive CITALOPRAM HYDROBROMIDE 20 MG ORAL TABS take 1 tab po qday for depresion and anxiety. CITALOPRAM HYDROBROMIDE 20 MG ORAL TABS 2 95213 CITALOPRAM HYDROBROMIDE Inactive ZANTAC 75 75 MG TABS take 1 po BID ZANTAC 75 75 MG TABS 877253 RANITIDINE HCL Inactive PREDNISONE 20 MG TAB 2 tabs daily for 3 days, 1 t ab daily for 3 days, 1/2 tab daily for 2 days PREDNISONE 20 MG TAB 452140 PREDNISON E Inactive ZITHROMAX 250 MG TAB 2 po today, then 1 po q days 2-5 ZITHROMAX 250 MG TAB 4547823 AZITHROMYCIN Inactive ZITHROMAX 250 MG TAB 2 po today, then 1 po q days 2-5 ZITHROMAX 250 MG TAB 7576914 AZITHROMYCIN Inactive Immunizations Vaccine Administration Date Value [...] 11 .6-14.8 platelet count 351 10^3/MM^3 10*3/mm3 481-900 2856/10/03 erythrocyte (RBC) count 4.58 10^6/MM^3 10*6/mm3 4.04-5.4 8 lymphocytes as percent of blood leukocytes 34.8 % 20.5-51.1 monocytes as percent of blood leukocytes 5.9 % 1.7-9.3 neutrophils as percent of blood leukocytes 57.2 % 42.2-75.2 leukocyte count, blood 5.9 10^3/MM^3 10*3/mm3 4.6-10.2 Lab Report: Comp. Metabolic Panel - Chem istry sodium, serum 139 mmol/L 513-315 1001/09/06 carbon dioxide, venous blood 25.3 mmol/L 21.0-32 [...] 0.20-1.00 Encounters Code Encounter Date Provider Facility CPT-67461 Level 4 Est. Patient 14:07:40 CDT Shannan Lazcano erin SYLVIA [facility] CPT-16160 Level 4 Est. Patient 13:54:09 CDT Adrián dyson MD [facility] CPT-68223 Level 3 Est. Patient 09:22:14 CDT Adrián dyson MD [facility] CPT-57361 Level 3 Est. Patient 08:59:31 CDT Adrián dyson MD [facility] CPT-62363 Level 3 Est. Patient 11:58:31 CDT Adrián dyson MD [facility] CPT-18195 Level 3 Est. Patient 09:06:35 CDT Adrián dyson MD [facility] CPT-34644 Level 3 Est. Patient 09:18:45 CDT Adrián dyson MD [facility] CPT-46580 Level 3 Est. Patient 09:13:22 CDT Adrián dyson MD [facility] CPT-50760 Level 3 Est. 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 Patient 14:00:53 CDT Uriel BOYD [facility] CPT-99717 Level 3 Est. Patient 20:00:09 CDT Terry jenkins DO [facility] CPT-91092 Level 3 Est. Patient 08:45:08 CDT Uriel Ramirezclarissa bhatia [facility] CPT-25599 Level 3 Est. Patient 09:09:26 CDT Uriel bhatia [facility] CPT-69156 Level 3 Est. Patient 16:32:31 CDT Adrián dyson MD [facility] CPT-71749 Level 3 Est. 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 Ace Arriaza MD [facility] Procedures Code Procedure Name Date Entry Date Standard Desc ription CPT-30171 First Vx - Ix admin via ID I M or jet injects without counseling by physician 14:18:02 CDT CPT-71330 Gardasil 9 Intramuscular Suspension 1 4:18:02 CDT CPT-J3420 Vitamin B12 1000mcg (Cyanocobalamin) 16:30:23 CDT CPT-95015 Abx/Therapy Injection 16:30:23 CDT CPT-J3420 Vitamin B12 1000mcg (Cyanocobalamin) 16:09:42 CDT CPT-40310 Abx/Therapy Injection 16:09:42 CDT CPT-J3420 Vitamin B12 1000mcg (Cyanocobalamin) 15:22:47 CDT CPT-56276 Abx/Therapy Injection 15:22:47 CDT CPT-J3420 Vitamin B12 1000mcg (Cyanocobalamin) 17:00:35 CDT CPT-67313 Abx/Therapy Injection 17:00:35 CDT CPT-23986 First Vx - Ix admin via ID I M or jet injects without counseling by physician 16:04:17 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 CPT-05465 Gardasil 9 Intramuscular Suspension 1 6:04:17 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 CPT-93843 Venipuncture Draw Fee 09:40:26 CDT CPT-21096 [place] [facility] - LAB USE ONLY 09:40:26 CDT 11/30 CPT-74248 CBC with Diff - LAB USE ONLY 09:40:26 CDT 2 CPT-12376 Addl Vx - Ix admin via ID IM or jet injects without counseling by physician 09:40:21 CDT CPT-31385 Menactra Intramuscular Injectable 09:40:21 CDT CPT-10946 Addl Vx - Ix admin via ID IM or jet injects without counseling by physician 09:40:21 CDT CPT-64975 Gardasil 9 Intramuscular Suspension 0 9:40:21 CDT CPT-76058 First Vx - Ix admin via ID I M or jet injects without counseling by physician 09:40:21 CDT CPT-11156 Havrix Intramuscular Suspension 720 EL U /0.5ML 09:40:21 CDT CPT-J2930 Solu Medrol 125 mg (Methyl Prednisolone Sodium Succinate) 09:43:26 CDT CPT-72708 Abx/Therapy Injection 09:43:26 CDT CPT-J2930 Solu Medrol 125 mg (Methyl Prednisolone Sodium Succinate) 09:05:55 CDT CPT-13229 Abx/Therapy Injection 09:05:55 CDT CPT-28228 Venipuncture Draw Fee 14:01:33 CDT CPT-70582 EKG Trac and Interp 11:22:04 CDT CPT-07521 Venipuncture Draw Fee 10:53:35 CDT CPT-J2930 Solu Medrol 125 mg (Methyl Prednisolone Sodium Succinate) 09:29:26 CDT CPT-08712 Abx/Therapy Injection 09:29:26 CDT CPT-Cryo Cryotherapy 16:51:37 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
--- OUTSIDE RECORDS SUMMARY | 2019-07-22 19:35 | XMS REPORT | Clinical Summary ---
[...] twice daily, for anxiety 2016 BUSPIRONE HCL 40291429977 Active Shannan Gibbs APRN Active PROZAC 20 MG CAP Take 1 tab daily. FLUOXETINE HCL 59195227671 Active Shannan Gibbs APRN Active PROZAC 10 MG CAP Take 1 tab daily for 1 week. Then increa se to 20mg daily. FLUOXETINE HCL 64402716585 Active Shannan Gibbs APRN Active CITALOPRAM HYDROBROMIDE 20 MG ORAL TABS take 1 tab po qday for depresion and anxiety. CITALOPRAM HYDROBROMIDE 90263351004 No L onger Active Shannan Gibbs APRN Active CYANOCOBALAMIN 1000 MCG/ML INJ SOLN 1 injection weekly for 1 month, than 1 a month for 2 months. recheck lab CYANOCOBALAMIN 63290231737 No Longer Active Shannan Gibbs APRN Active ULTRAM 50 MG TAB 1 TAB PO Q 6 HRS PRN HEADACHE TRAMADOL HCL 51984257845 Active Adrián Varghese MD Active ULTRAM 50 MG TAB take 1 tab po q 6 hrs prn headache pain TRAMADOL HCL 34838497205 No Longer Active Adrián Varghese MD Acti ve CLINDAMYCIN PHOSPHATE 2 % CREA apply cream to acne BID prn 06/14 CLINDAMYCIN PHOSPHATE 42084128094 No Longer Active Adrián Joseph Active MINOCYCLINE HCL 100 MG CAPS take one po BID MINOCYCLINE HCL 17692671503 No Longer Active Adrián Varghese MD Acti ve TRI-SPRINTEC 0.18/0.215/0.25 MG-35 MCG TABS 1 po qd as directed 201 07/04/00 NORGESTIM-ETH ESTRAD TRIPHASIC 32161719404 Active Adrián Varghese MD Active ZITHROMAX 250 MG TAB 2 po today, then 1 po q days 2-5 AZITHROMYCIN 44955228147 No Longer Active Adrián Varghese MD Acti ve ZITHROMAX 250 MG TAB 2 po today, then 1 po q days 2-5 AZITHROMYCIN 22800560308 No Longer Active Adrián Varghese MD Acti ve PREDNISONE 20 MG TAB 2 tabs daily for 3 days, 1 t ab daily for 3 days, 1/2 tab daily for 2 days PREDNISONE 24002998548 No Longer Active Adrián Varghese MD Active ZANTAC 75 75 MG TABS take 1 po BID RANITIDINE H CL 15252571652 No Longer Active Uriel BOYD Active BENZACLIN 1-5 % GEL apply to skin BID prn for acne 201 05/05/14 CLINDAMYCIN PHOS-BENZOYL PEROX 64328330784 No Longer Active Uriel BOYD Active BENZACLIN 1-5 % GEL apply to skin BID prn for acne 201 05/05/14 BENZACLIN 1-5 % GEL 211245 CLINDAMYCIN PHOS-BENZOYL PEROX Inactive MINOCYCLINE HCL 100 MG CAPS take one po BID MINOCYCLINE HCL 100 MG CAPS 281875 MINOCYCLINE HCL Inactive CLINDAMYCIN PHOSPHATE 2 % CREA apply cream to acne BID prn 06/14 CLINDAMYCIN PHOSPHATE 2 % CREA 630442 CLINDAMYCIN PHOSP HATE Inactive ULTRAM 50 MG TAB take 1 tab po q 6 hrs prn headache pain ULTRAM 50 MG TAB 329361 TRAMADOL HCL Inactive CYANOCOBALAMIN 1000 MCG/ML INJ SOLN 1 injection weekly for 1 month, than 1 a month for 2 months. recheck lab CYANOCOB ALAMIN 1000 MCG/ML INJ SOLN 527388 CYANOCOBALAMIN Inactive CITALOPRAM HYDROBROMIDE 20 MG ORAL TABS take 1 tab po qday for depresion and anxiety. CITALOPRAM HYDROBROMIDE 20 MG ORAL TABS 2 76998 CITALOPRAM HYDROBROMIDE Inactive ZANTAC 75 75 MG TABS take 1 po BID ZANTAC 75 75 MG TABS 565136 RANITIDINE HCL Inactive PREDNISONE 20 MG TAB 2 tabs daily for 3 days, 1 t ab daily for 3 days, 1/2 tab daily for 2 days PREDNISONE 20 MG TAB 060011 PREDNISON E Inactive ZITHROMAX 250 MG TAB 2 po today, then 1 po q days 2-5 ZITHROMAX 250 MG TAB 1138363 AZITHROMYCIN Inactive ZITHROMAX 250 MG TAB 2 po today, then 1 po q days 2-5 ZITHROMAX 250 MG TAB 3746962 AZITHROMYCIN Inactive Immunizations Vaccine Administration Date Value [...] - Chem istry sodium, serum 139 mmol/L 301-682 5596/09/06 carbon dioxide, venous blood 25.3 mmol/L 21.0-32 [...] 0.20-1.00 Encounters Code Encounter Date Provider Facility CPT-96935 Level 4 Est. Patient 14:07:40 CDT Shannan Lazcano erin SYLVIA [facility] CPT-30460 Level 4 Est. Patient 13:54:09 CDT Adrián dyson MD [facility] CPT-44665 Level 3 Est. Patient 09:22:14 CDT Adrián dyson MD [facility] CPT-65078 Level 3 Est. Patient 08:59:31 CDT Adrián dyson MD [facility] CPT-50347 Level 3 Est. Patient 11:58:31 CDT Adrián dyson MD [facility] CPT-60246 Level 3 Est. Patient 09:06:35 CDT Adrián dyson MD [facility] CPT-13413 Level 3 Est. Patient 09:18:45 CDT Adrián dyson MD [facility] CPT-73499 Level 3 Est. Patient 09:13:22 CDT Adrián dyson MD [facility] CPT-23773 Level 3 Est. Patient 18:04:31 ENTERPRISE SOFTWARE ENGINEER Adrián dyson MD [facility] CPT-07504 Level 4 Est. Patient 14:00:53 CDT Uriel BYOD [facility] CPT-35052 Level 3 Est. Patient 20:00:09 CDT Terry jenkins DO [facility] CPT-14925 Level 3 Est. Patient 08:45:08 CDT Uriel Ramirezclarissa bhatia [facility] CPT-70634 Level 3 Est. Patient 09:09:26 CDT Uriel bhatia [facility] CPT-39530 Level 3 Est. Patient 16:32:31 CDT Adrián dyson MD [facility] CPT-74861 Level 3 Est. Patient 09:35:27 ENTERPRISE SOFTWARE ENGINEER Norman fuentes [facility] CPT-68743 Level 2 Est. Patient 16:51:37 ENTERPRISE SOFTWARE ENGINEER Adrián dyson MD [facility] CPT-12109 Level 3 Est. Patient 10:00:11 ENTERPRISE SOFTWARE ENGINEER Ace Arriaza MD [facility] Procedures Code Procedure Name Date Entry Date Standard Desc ription CPT-18099 First Vx - Ix admin via ID I M or jet injects without counseling by physician 14:18:02 CDT CPT-10475 Gardasil 9 Intramuscular Suspension 1 4:18:02 CDT CPT-J3420 Vitamin B12 1000mcg (Cyanocobalamin) 16:30:23 CDT CPT-25102 Abx/Therapy Injection 16:30:23 CDT CPT-J3420 Vitamin B12 1000mcg (Cyanocobalamin) 16:09:42 CDT CPT-93588 Abx/Therapy Injection 16:09:42 CDT CPT-J3420 Vitamin B12 1000mcg (Cyanocobalamin) 15:22:47 CDT CPT-70262 Abx/Therapy Injection 15:22:47 CDT CPT-J3420 Vitamin B12 1000mcg (Cyanocobalamin) 17:00:35 CDT CPT-90639 Abx/Therapy Injection 17:00:35 CDT CPT-58907 First Vx - Ix admin via ID I M or jet injects without counseling by physician 16:04:17 ENTERPRISE SOFTWARE ENGINEER CPT-09889 Gardasil 9 Intramuscular Suspension 1 6:04:17 ENTERPRISE SOFTWARE ENGINEER CPT-27109 Venipuncture Draw Fee 09:40:26 CDT CPT-51711 [place] [facility] - LAB USE ONLY 09:40:26 CDT 11/30 CPT-30076 CBC with Diff - LAB USE ONLY 09:40:26 CDT 2 CPT-65934 Addl Vx - Ix admin via ID IM or jet injects without counseling by physician 09:40:21 CDT CPT-71813 Menactra Intramuscular Injectable 09:40:21 CDT CPT-27518 Addl Vx - Ix admin via ID IM or jet injects without counseling by physician 09:40:21 CDT CPT-61504 Gardasil 9 Intramuscular Suspension 0 9:40:21 CDT CPT-87051 First Vx - Ix admin via ID I M or jet injects without counseling by physician 09:40:21 CDT CPT-76098 Havrix Intramuscular Suspension 720 EL U /0.5ML 09:40:21 CDT CPT-J2930 Solu Medrol 125 mg (Methyl Prednisolone Sodium Succinate) 09:43:26 CDT CPT-40765 Abx/Therapy Injection 09:43:26 CDT CPT-J2930 Solu Medrol 125 mg (Methyl Prednisolone Sodium Succinate) 09:05:55 CDT CPT-95016 Abx/Therapy Injection 09:05:55 CDT CPT-40029 Venipuncture Draw Fee 14:01:33 CDT CPT-35582 EKG Trac and Interp 11:22:04 CDT CPT-31284 Venipuncture Draw Fee 10:53:35 CDT CPT-J2930 Solu Medrol 125 mg (Methyl Prednisolone Sodium Succinate) 09:29:26 CDT CPT-28769 Abx/Therapy Injection 09:29:26 CDT CPT-Cryo Cryotherapy 16:51:37 ENTERPRISE SOFTWARE ENGINEER
--- OUTSIDE RECORDS SUMMARY | 2019-07-22 19:35 | XMS REPORT | Clinical Summary ---
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 Other atopic dermatitis and related conditions [...] 1 TABLET BY MOUTH DAILY DIRECTED SULFAMETHOXAZOLE-TRIMETHOPRIM 54695851474 No Longer Active Madelin Hatch MD Active BUSPIRONE HCL 7.5 MG ORAL TABLET PRN BUSPIR ONE HCL 37161372408 Active Madelin Hatch MD Active PROZAC 20 MG ORAL CAPSULE PRN FLUOXETINE HCL 0077 2779645 Active Madelin Hatch MD Active ABSORICA 20 MG ORAL CAPSULE 1 tablet daily ISOT RETINOIN 37171287611 Active Madelin Hatch MD Active ACZONE 5 % EXTERNAL GEL apply once daily to face 5 DAPSONE 39869404391 No Longer Active Madelin Hatch MD Active PROZAC 10 MG ORAL CAPSULE Take 1 tab daily for 1 week. Then increase to 20mg daily. FLUOXETINE HCL 91207614659 No Longer Active Yulissa ortega Cristina STRICKLANDN Active CITALOPRAM HYDROBROMIDE 20 MG ORAL TABLET take 1 tab p o qday for depresion and anxiety. CITALOPRAM HYDROBROMIDE 97051203216 No L onger Active Shannan Evans APRN Active CYANOCOBALAMIN 1000 MCG/ML INJECTION SOLUTION 1 inject ion weekly for 1 month, than 1 a month for 2 months. recheck lab CYANOCO BALAMIN 65305344174 No Longer Active Shannan Evans APRN Active ULTRAM 50 MG ORAL TABLET 1 TAB PO Q 6 HRS PRN HEADACHE TRAMADOL HCL 11021705005 Active Adrián Varghese MD Active ULTRAM 50 MG ORAL TABLET take 1 tab po q 6 hrs prn headache pain TRAMADOL HCL 42849116763 No Longer Active Adrián Varghese MD Active CLINDAMYCIN PHOSPHATE 2 % VAGINAL CREAM apply cream to acne BID prn CLINDAMYCIN PHOSPHATE 83034121953 No Longer Active Adrián dyson MD Active MINOCYCLINE HCL 100 MG ORAL CAPSULE take one po BID 13/11/25 MINOCYCLINE HCL 34346408590 No Longer Active Adrián Varghese MD A ctive TRI-SPRINTEC 0.18/0.215/0.25 MG-35 MCG ORAL TABLET 1 po qd a s directed NORGESTIM-ETH ESTRAD TRIPHASIC 11828755079 Active Madelin Hatch MD Active ZITHROMAX 250 MG ORAL TABLET 2 po today, then 1 po q days 2-5 20 12/07/06 AZITHROMYCIN 99760875650 No Longer Active Adrián Varghese MD Active ZITHROMAX 250 MG ORAL TABLET 2 po today, then 1 po q days 2-5 20 11/06/16 AZITHROMYCIN 74566963445 No Longer Active Adrián Varghese MD Active PREDNISONE 20 MG ORAL TABLET 2 tabs daily for 3 days, 1 tab daily for 3 days, 1/2 tab daily for 2 days PREDNISONE 34716543729 No Longer Active Adrián Vargehse MD Active ZANTAC 75 75 MG ORAL TABLET take 1 po BID RANIT IDINE HCL 15115022983 No Longer Active Uriel BOYD Active BENZACLIN 1-5 % EXTERNAL GEL apply to skin BID prn for acne 2012 CLINDAMYCIN PHOS-BENZOYL PEROX 48713196218 No Longer Active Uriel BOYD Active BENZACLIN 1-5 % EXTERNAL GEL apply to skin BID prn for acne 2012 BENZACLIN 1-5 % EXTERNAL GEL 146859 CLINDAMYCIN PHOS-BE NZOYL PEROX Inactive MINOCYCLINE HCL 100 MG ORAL CAPSULE take one po BID 13/11/25 MINOCYCLINE HCL 100 MG ORAL CAPSULE 664910 MINOCYCLINE HCL Inac tive CLINDAMYCIN PHOSPHATE 2 % VAGINAL CREAM apply cream to acne BID prn CLINDAMYCIN PHOSPHATE 2 % VAGINAL CREAM 505392 CLINDAMY ANGELIA PHOSPHATE Inactive ULTRAM 50 MG ORAL TABLET take 1 tab po q 6 hrs prn headache pain ULTRAM 50 MG ORAL TABLET 514435 TRAMADOL HCL Inactiv e CYANOCOBALAMIN 1000 MCG/ML INJECTION SOLUTION 1 inject ion weekly for 1 month, than 1 a month for 2 months. recheck lab CYANOCOBALAMIN 1000 MCG/ML INJECTION SOLUTION 179834 CYANOCOBALAMIN Inactive CITALOPRAM HYDROBROMIDE 20 MG ORAL TABLET take 1 tab p o qday for depresion and anxiety. CITALOPRAM HYDROBROMIDE 20 MG ORAL TABLET 461871 CITALOPRAM HYDROBROMIDE Inactive PROZAC 10 MG ORAL CAPSULE Take 1 tab daily for 1 week. Then increase to 20mg daily. PROZAC 10 MG ORAL CAPSULE 867798 FLUOXETINE HCL Inactive ACZONE 5 % EXTERNAL GEL apply once daily to face 07/22 ACZONE 5 % EXTERNAL GEL 186450 DAPSONE Inactive SULFAMETHOXAZOLE-TRIMETHOPRIM 800-160 MG ORAL TABLET T QUINCY 1 TABLET BY MOUTH DAILY DIRECTED SULFAMETHOXAZOLE-TRI METHOPRIM 800-160 MG ORAL TABLET 086494 SULFAMETHOXAZOLE-TRIMETHOPRIM Inactive ZANTAC 75 75 MG ORAL TABLET take 1 po BID ZANTAC 75 75 MG ORAL TABLET 941816 RANITIDINE HCL Inactive PREDNISONE 20 MG ORAL TABLET 2 tabs daily for 3 days, 1 tab daily for 3 days, 1/2 tab daily for 2 days PREDNISONE 20 MG ORAL T ABLET 122942 PREDNISONE Inactive ZITHROMAX 250 MG ORAL TABLET 2 po today, then 1 po q days 2-5 20 11/06/16 ZITHROMAX 250 MG ORAL TABLET 010729 AZITHROMYCIN [place] ctive ZITHROMAX 250 MG ORAL TABLET 2 po today, then 1 po q days 2-5 20 12/07/06 ZITHROMAX 250 MG ORAL TABLET 130319 AZITHROMYCIN [place] ctive Immunizations Vaccine Administration Date [...] Value Unit Range Description Lab Report: Chlamydia/GC APTIMA/12519 - Lab chlamydia DNA probe NOT DETECTED NOT DETECTED chlamydia DNA probe NOT DETECTED NOT DETECTED Lab Report: Chlamydia/GC APTIMA/02969 - Microbiology Neisseria gonorrhoeae DNA probe NOT DETECTED NO T DETECTED Neisseria gonorrhoeae DNA probe NOT DETECTED NO T DETECTED Lab Report: Comp. Metabolic Panel - Chem istry sodium, serum 141 mmol/L 158-044 9834/11/22 carbon dioxide, venous blood 25.2 mmol/L 21.0-32 .0 potassium, serum 3.8 mmol/L 3.5-5.2 chloride, serum 104 mmol/L 98-107 blood glucose 95 mg/dL 65-110 urea nitrogen, blood 15 mg/dL 7-18 creatinine, serum 0.79 mg/dL 0.60-1.30 alanine aminotransferase (SGPT), serum 28 U/L 10-55 aspartate aminotransferase (SGOT), serum 17 U/L 15-45 calcium, serum 8.9 mg/dL 8.5-10.1 bilirubin, serum, total 0.30 mg/dL 0.20-1.00 sodium, serum 139 mmol/L 705-419 8535/09/06 carbon dioxide, venous blood 25.3 mmol/L 21.0-32 [...] 5.0-8.5 Encounters Code Encounter Date Provider Facility CPT-53112 Level 3 New Patient 12:59:59 CDT Madelin almodovar MD [facility] CPT-43201 Level 3 Est. Patient 10:07:39 INTERIOR PAINTER Cale morris [facility] CPT-52355 Level 3 Est. Patient 11:35:37 INTERIOR PAINTER Cale morris [facility] CPT-86410 Level 4 Est. Patient 11:10:55 CDT Shannan Are [facility] CPT-43215 Level 4 Est. Patient 14:07:40 CDT Shannan Are ll [facility] CPT-76431 Level 4 Est. Patient 13:54:09 CDT Adrián dyson MD [facility]-51761 Level 3 Est. Patient 09:22:14 CDT Adrián dyson MD [facility]-25758 Level 3 Est. Patient 08:59:31 CDT Adrián dyson MD [facility]-07035 Level 3 Est. Patient 11:58:31 CDT Adrián dyson MD [facility]-59811 Level 3 Est. Patient 09:06:35 CDT Adrián dyson MD [facility]-90320 Level 3 Est. Patient 09:18:45 CDT Adrián dyson MD [facility] CPT-61149 Level 3 Est. Patient 09:13:22 CDT Adrián dyson MD [facility]-04187 Level 3 Est. Patient 18:04:31 INTERIOR PAINTER Adrián dyson MD [facility] CPT-18400 Level 4 Est. Patient 14:00:53 CDT Uriel bhatia [facility] CPT-12978 Level 3 Est. Patient 20:00:09 CDT Terry jenkins DO [facility] CPT-41693 Level 3 Est. Patient 08:45:08 CDT Uriel bhatia [facility]-72536 Level 3 Est. Patient 09:09:26 CDT Uriel bhatia [facility] CPT-02667 Level 3 Est. Patient 16:32:31 CDT Adrián dyson MD [facility]-93087 Level 3 Est. Patient 09:35:27 INTERIOR PAINTER Norman BOYD [facility] CPT-80442 Level 2 Est. Patient 16:51:37 INTERIOR PAINTER Adrián dyson MD [facility] CPT-53270 Level 3 Est. Patient 10:00:11 INTERIOR PAINTER Ace Arriaza MD [facility] Procedures Code Procedure Name Date Entry Date Standard Desc ription CPT-34286 Addl Vx - Ix admin via ID IM or jet injects without counseling by physician 15:35:10 CDT CPT-24341 Meningococcal B, recombinant vaccine 15:35:10 CDT CPT-80708 First Vx - Ix admin via ID I M or jet injects without counseling by physician 15:35:10 CDT CPT-82824 Havrix Intramuscular Suspension 720 EL U /0.5ML 15:35:10 CDT CPT-34723 First Vx - Ix admin via ID I M or jet injects without counseling by physician 14:18:02 CDT CPT-31937 Gardasil 9 Intramuscular Suspension 1 4:18:02 CDT CPT-J3420 Vitamin B12 1000mcg (Cyanocobalamin) 16:30:23 CDT CPT-47683 Abx/Therapy Injection 16:30:23 CDT CPT-J3420 Vitamin B12 1000mcg (Cyanocobalamin) 16:09:42 CDT CPT-01455 Abx/Therapy Injection 16:09:42 CDT CPT-J3420 Vitamin B12 1000mcg (Cyanocobalamin) 15:22:47 CDT CPT-01074 Abx/Therapy Injection 15:22:47 CDT CPT-J3420 Vitamin B12 1000mcg (Cyanocobalamin) 17:00:35 CDT CPT-39028 Abx/Therapy Injection 17:00:35 CDT CPT-12439 First Vx - Ix admin via ID I M or jet injects without counseling by physician 16:04:17 INTERIOR PAINTER CPT-35611 Gardasil 9 Intramuscular Suspension 1 6:04:17 INTERIOR PAINTER CPT-45467 Venipuncture Draw Fee 09:40:26 CDT CPT-21841 [place] [facility] - LAB USE ONLY 09:40:26 CDT 11/30 CPT-02246 CBC with Diff - LAB USE ONLY 09:40:26 CDT 2 CPT-56266 Addl Vx - Ix admin via ID IM or jet injects without counseling by physician 09:40:21 CDT CPT-82505 Menactra Intramuscular Injectable 09:40:21 CDT CPT-61429 Addl Vx - Ix admin via ID IM or jet injects without counseling by physician 09:40:21 CDT CPT-82715 Gardasil 9 Intramuscular Suspension 0 9:40:21 CDT CPT-81076 First Vx - Ix admin via ID I M or jet injects without counseling by physician 09:40:21 CDT CPT-82004 Havrix Intramuscular Suspension 720 EL U /0.5ML 09:40:21 CDT CPT-J2930 Solu Medrol 125 mg (Methyl Prednisolone Sodium Succinate) 09:43:26 CDT CPT-66811 Abx/Therapy Injection 09:43:26 CDT CPT-J2930 Solu Medrol 125 mg (Methyl Prednisolone Sodium Succinate) 09:05:55 CDT CPT-61808 Abx/Therapy Injection 09:05:55 CDT CPT-18219 Venipuncture Draw Fee 14:01:33 CDT CPT-06994 EKG Trac and Interp 11:22:04 CDT CPT-20359 Venipuncture Draw Fee 10:53:35 CDT CPT-J2930 Solu Medrol 125 mg (Methyl Prednisolone Sodium Succinate) 09:29:26 CDT CPT-16836 Abx/Therapy Injection 09:29:26 CDT CPT-Cryo Cryotherapy 16:51:37 INTERIOR PAINTER
--- OUTSIDE RECORDS SUMMARY | 2019-07-22 19:35 | XMS REPORT | Clinical Summary ---
Author Author Yovanny, Clarisa Christopher Organization [facility] Address Unknown Phone Unavailable Allergies, Adverse [...] Q 6 HRS PRN HEADACHE TRAMADOL HCL 08286519380 Active Adrián Varghese MD Active CYANOCOBALAMIN 1000 MCG/ML INJ SOLN 1 injection weekly for 1 month, than 1 a month for 2 months. recheck lab CYANOCOBALAMIN 96842348569 Active Samreen Cristo Active CITALOPRAM HYDROBROMIDE 20 MG ORAL TABS take 1 tab po qday for depresion and anxiety. CITALOPRAM HYDROBROMIDE 74711923809 Active Adrián Varghese MD Active ULTRAM 50 MG TAB take 1 tab po q 6 hrs prn headache pain TRAMADOL HCL 05759963119 No Longer Active Adrián Varghese MD Acti ve CLINDAMYCIN PHOSPHATE 2 % CREA apply cream to acne BID prn 06/14 CLINDAMYCIN PHOSPHATE 98415616175 No Longer Active Adrián Joseph Active MINOCYCLINE HCL 100 MG CAPS take one po BID MINOCYCLINE HCL 07134329172 No Longer Active Adrián Varghese MD Acti ve TRI-SPRINTEC 0.18/0.215/0.25 MG-35 MCG TABS 1 po qd as directed 201 07/04/00 NORGESTIM-ETH ESTRAD TRIPHASIC 20685380399 Active Adrián Varghese MD Active ZITHROMAX 250 MG TAB 2 po today, then 1 po q days 2-5 AZITHROMYCIN 35396177774 No Longer Active Adrián Varghese MD Acti ve ZITHROMAX 250 MG TAB 2 po today, then 1 po q days 2-5 AZITHROMYCIN 76474040676 No Longer Active Adrián Varghese MD Acti ve PREDNISONE 20 MG TAB 2 tabs daily for 3 days, 1 t ab daily for 3 days, 1/2 tab daily for 2 days PREDNISONE 58661112012 No Longer Active Adrián Varghese MD Active ZANTAC 75 75 MG TABS take 1 po BID RANITIDINE H CL 48518761446 No Longer Active Uriel BOYD Active BENZACLIN 1-5 % GEL apply to skin BID prn for acne 201 05/05/14 CLINDAMYCIN PHOS-BENZOYL PEROX 03428577415 No Longer Active Uriel BOYD Active BENZACLIN 1-5 % GEL apply to skin BID prn for acne 201 05/05/14 BENZACLIN 1-5 % GEL 937965 CLINDAMYCIN PHOS-BENZOYL PEROX Inactive MINOCYCLINE HCL 100 MG CAPS take one po BID MINOCYCLINE HCL 100 MG CAPS 891137 MINOCYCLINE HCL Inactive CLINDAMYCIN PHOSPHATE 2 % CREA apply cream to acne BID prn 06/14 CLINDAMYCIN PHOSPHATE 2 % CREA 119588 CLINDAMYCIN PHOSP HATE Inactive ULTRAM 50 MG TAB take 1 tab po q 6 hrs prn headache pain ULTRAM 50 MG TAB 191284 TRAMADOL HCL Inactive ZANTAC 75 75 MG TABS take 1 po BID ZANTAC 75 75 MG TABS 007698 RANITIDINE HCL Inactive PREDNISONE 20 MG TAB 2 tabs daily for 3 days, 1 t ab daily for 3 days, 1/2 tab daily for 2 days PREDNISONE 20 MG TAB 553920 PREDNISON E Inactive ZITHROMAX 250 MG TAB 2 po today, then 1 po q days 2-5 ZITHROMAX 250 MG TAB 8680981 AZITHROMYCIN Inactive ZITHROMAX 250 MG TAB 2 po today, then 1 po q days 2-5 ZITHROMAX 250 MG TAB 6278321 AZITHROMYCIN Inactive Immunizations Vaccine Administration Date Value [...] 142-424 Encounters Code Encounter Date Provider Facility CPT-14817 Level 4 Est. Patient 13:54:09 CDT Adrián dyson MD [facility] CPT-34867 Level 3 Est. Patient 09:22:14 CDT Adrián dyson MD [facility]-27897 Level 3 Est. Patient 08:59:31 CDT Adrián dyson MD [facility]-12929 Level 3 Est. Patient 11:58:31 CDT Adrián dyson MD [facility] CPT-28487 Level 3 Est. Patient 09:06:35 CDT Adrián dyson MD [facility] CPT-89087 Level 3 Est. Patient 09:18:45 CDT Adrián dyson MD [facility] CPT-12126 Level 3 Est. Patient 09:13:22 CDT Adrián dyson MD [facility] CPT-41876 Level 3 Est. Patient 18:04:31 MEDIA DEVELOPER Adrián dyson MD [facility] CPT-53803 Level 4 Est. Patient 14:00:53 CDT Uriel bhatia [facility] CPT-18573 Level 3 Est. Patient 20:00:09 CDT Terry jenkins DO [facility] CPT-14502 Level 3 Est. Patient 08:45:08 CDT Uriel bhatia [facility] CPT-04997 Level 3 Est. Patient 09:09:26 CDT Uriel Ramirezclarissa bhatia [facility] CPT-00002 Level 3 Est. Patient 16:32:31 CDT Adrián dyson MD [facility] CPT-24330 Level 3 Est. Patient 09:35:27 MEDIA DEVELOPER Norman Aguilararnulfo BOYD [facility] CPT-15759 Level 2 Est. Patient 16:51:37 MEDIA DEVELOPER Adrián dyson MD [facility] CPT-89163 Level 3 Est. Patient 10:00:11 MEDIA DEVELOPER Ace Arriaza MD [facility] Procedures Code Procedure Name Date Entry Date Standard Desc ription CPT-J3420 Vitamin B12 1000mcg (Cyanocobalamin) 16:30:23 CDT CPT-71814 Abx/Therapy Injection 16:30:23 CDT CPT-J3420 Vitamin B12 1000mcg (Cyanocobalamin) 16:09:42 CDT CPT-16506 Abx/Therapy Injection 16:09:42 CDT CPT-J3420 Vitamin B12 1000mcg (Cyanocobalamin) 15:22:47 CDT CPT-82805 Abx/Therapy Injection 15:22:47 CDT CPT-J3420 Vitamin B12 1000mcg (Cyanocobalamin) 17:00:35 CDT CPT-73528 Abx/Therapy Injection 17:00:35 CDT CPT-20256 First Vx - Ix admin via ID I M or jet injects without counseling by physician 16:04:17 MEDIA DEVELOPER CPT-06625 Gardasil 9 Intramuscular Suspension 1 6:04:17 MEDIA DEVELOPER CPT-24408 Venipuncture Draw Fee 09:40:26 CDT CPT-28111 [place] [facility] - LAB USE ONLY 09:40:26 CDT 11/30 CPT-70690 CBC with Diff - LAB USE ONLY 09:40:26 CDT 2 CPT-47503 Addl Vx - Ix admin via ID IM or jet injects without counseling by physician 09:40:21 CDT CPT-11482 Menactra Intramuscular Injectable 09:40:21 CDT CPT-58447 Addl Vx - Ix admin via ID IM or jet injects without counseling by physician 09:40:21 CDT CPT-58906 Gardasil 9 Intramuscular Suspension 0 9:40:21 CDT CPT-32139 First Vx - Ix admin via ID I M or jet injects without counseling by physician 09:40:21 CDT CPT-97279 Havrix Intramuscular Suspension 720 EL U /0.5ML 09:40:21 CDT CPT-J2930 Solu Medrol 125 mg (Methyl Prednisolone Sodium Succinate) 09:43:26 CDT CPT-01101 Abx/Therapy Injection 09:43:26 CDT CPT-J2930 Solu Medrol 125 mg (Methyl Prednisolone Sodium Succinate) 09:05:55 CDT CPT-92813 Abx/Therapy Injection 09:05:55 CDT CPT-35434 Venipuncture Draw Fee 14:01:33 CDT CPT-80386 EKG Trac and Interp 11:22:04 CDT CPT-07410 Venipuncture Draw Fee 10:53:35 CDT CPT-J2930 Solu Medrol 125 mg (Methyl Prednisolone Sodium Succinate) 09:29:26 CDT CPT-50284 Abx/Therapy Injection 09:29:26 CDT CPT-Cryo Cryotherapy 16:51:37 MEDIA DEVELOPER
--- OUTSIDE RECORDS SUMMARY | 2019-07-22 19:35 | XMS REPORT | Clinical Summary ---
Author Author Yovanny, Clarisa Christopher Organization [facility] Address Unknown Phone Unavailable Allergies, Adverse Reactions, [...] to acne BID prn 06/14 CLINDAMYCIN PHOSPHATE 25152789968 No Longer Active Adrián Joseph Active MINOCYCLINE HCL 100 MG CAPS take one po BID MINOCYCLINE HCL 36763779808 No Longer Active Adrián Varghese MD Acti ve TRI-SPRINTEC 0.18/0.215/0.25 MG-35 MCG TABS 1 po qd as directed 201 07/04/00 NORGESTIM-ETH ESTRAD TRIPHASIC 42528532474 Active Adrián Varghese MD Active ZITHROMAX 250 MG TAB 2 po today, then 1 po q days 2-5 AZITHROMYCIN 29444735313 No Longer Active Adrián Varghese MD Acti ve ULTRAM 50 MG TAB take 1 tab po q 6 hrs prn headache pain TRAMADOL HCL 78238608339 Active Adrián Varghese MD Active ZITHROMAX 250 MG TAB 2 po today, then 1 po q days 2-5 AZITHROMYCIN 82972033572 No Longer Active Adrián Varghese MD Acti ve PREDNISONE 20 MG TAB 2 tabs daily for 3 days, 1 t ab daily for 3 days, 1/2 tab daily for 2 days PREDNISONE 20675287194 No Longer Active Adrián Varghese MD Active ZANTAC 75 75 MG TABS take 1 po BID RANITIDINE H CL 50182883299 No Longer Active Uriel BOYD Active BENZACLIN 1-5 % GEL apply to skin BID prn for acne 201 05/05/14 CLINDAMYCIN PHOS-BENZOYL PEROX 44919442659 No Longer Active Uriel BOYD Active BENZACLIN 1-5 % GEL apply to skin BID prn for acne 201 05/05/14 BENZACLIN 1-5 % GEL 077726 CLINDAMYCIN PHOS-BENZOYL PEROX Inactive MINOCYCLINE HCL 100 MG CAPS take one po BID MINOCYCLINE HCL 100 MG CAPS 778619 MINOCYCLINE HCL Inactive CLINDAMYCIN PHOSPHATE 2 % CREA apply cream to acne BID prn 06/14 CLINDAMYCIN PHOSPHATE 2 % CREA 629705 CLINDAMYCIN PHOSP HATE Inactive ZANTAC 75 75 MG TABS take 1 po BID ZANTAC 75 75 MG TABS 771353 RANITIDINE HCL Inactive PREDNISONE 20 MG TAB 2 tabs daily for 3 days, 1 t ab daily for 3 days, 1/2 tab daily for 2 days PREDNISONE 20 MG TAB 852386 PREDNISON E Inactive ZITHROMAX 250 MG TAB 2 po today, then 1 po q days 2-5 ZITHROMAX 250 MG TAB 2118553 AZITHROMYCIN Inactive ZITHROMAX 250 MG TAB 2 po today, then 1 po q days 2-5 ZITHROMAX 250 MG TAB 5047411 AZITHROMYCIN Inactive Immunizations Vaccine Administration Date Value [...] 142-424 Encounters Code Encounter Date Provider Facility CPT-24173 Level 3 Est. Patient 09:22:14 CDT Adrián dyson MD [facility] CPT-53883 Level 3 Est. Patient 08:59:31 CDT Adrián dyson MD [facility] CPT-06999 Level 3 Est. Patient 11:58:31 CDT Adri[facility] CPT-61079 Level 3 Est. Patient 09:06:35 CDT Adrián dyson MD [facility] CPT-26598 Level 3 Est. Patient 09:18:45 CDT Adrián dyson MD [facility] CPT-83156 Level 3 Est. Patient 09:13:22 CDT Adrián dyson MD [facility] CPT-08575 Level 3 Est. 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 Patient 14:00:53 CDT Uriel bhatia [facility] CPT-58639 Level 3 Est. Patient 20:00:09 CDT Terry jenkins DO [facility] CPT-35658 Level 3 Est. Patient 08:45:08 CDT Uriel bhatia [facility] CPT-94121 Level 3 Est. Patient 09:09:26 CDT Uriel bhatia [facility] CPT-63950 Level 3 Est. Patient 16:32:31 CDT Adrián dyson MD [facility] CPT-41914 Level 3 Est. Patient 09:35:27 CARBON PAPER COATING SUPERVISOR Norman fuentes [facility] CPT-68777 Level 2 Est. Patient 16:51:37 CARBON PAPER COATING SUPERVISOR Adrián dyson MD [facility] CPT-92307 Level 3 Est. Patient 10:00:11 CARBON PAPER COATING SUPERVISOR Ace Arriaza MD [facility] Procedures Code Procedure Name Date Entry Date Standard Desc ription CPT-51387 Venipuncture Draw Fee 09:40:26 CDT CPT-61453 [place] [facility] - LAB USE ONLY 09:40:26 CDT 11/30 CPT-57601 CBC with Diff - LAB USE ONLY 09:40:26 CDT 2 CPT-18581 Addl Vx - Ix admin via ID IM or jet injects without counseling by physician 09:40:21 CDT CPT-19270 Menactra Intramuscular Injectable 09:40:21 CDT CPT-75121 Addl Vx - Ix admin via ID IM or jet injects without counseling by physician 09:40:21 CDT CPT-94168 Gardasil 9 Intramuscular Suspension 0 9:40:21 CDT CPT-78221 First Vx - Ix admin via ID I M or jet injects without counseling by physician 09:40:21 CDT CPT-55609 Havrix Intramuscular Suspension 720 EL U /0.5ML 09:40:21 CDT CPT-J2930 Solu Medrol 125 mg (Methyl Prednisolone Sodium Succinate) 09:43:26 CDT CPT-30493 Abx/Therapy Injection 09:43:26 CDT CPT-J2930 Solu Medrol 125 mg (Methyl Prednisolone Sodium Succinate) 09:05:55 CDT CPT-60744 Abx/Therapy Injection 09:05:55 CDT CPT-43731 Venipuncture Draw Fee 14:01:33 CDT CPT-70193 EKG Trac and Interp 11:22:04 CDT CPT-78704 Venipuncture Draw Fee 10:53:35 CDT CPT-J2930 Solu Medrol 125 mg (Methyl Prednisolone Sodium Succinate) 09:29:26 CDT CPT-55569 Abx/Therapy Injection 09:29:26 CDT CPT-Cryo Cryotherapy 16:51:37 CARBON PAPER COATING SUPERVISOR
--- OUTSIDE RECORDS SUMMARY | 2019-07-22 19:36 | XMS REPORT | Clinical Summary ---
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 Other atopic dermatitis and related conditions Contraceptive [...] 1 TABLET BY MOUTH DAILY DIRECTED SULFAMETHOXAZOLE-TRIMETHOPRIM 89136698909 No Longer Active Madelin Hatch MD Active BUSPIRONE HCL 7.5 MG ORAL TABLET PRN BUSPIR ONE HCL 38510410784 Active Madelin Hatch MD Active PROZAC 20 MG ORAL CAPSULE PRN FLUOXETINE HCL 0077 7126793 Active Madelin Hatch MD Active ABSORICA 20 MG ORAL CAPSULE 1 tablet daily ISOT RETINOIN 84739720348 Active Madelin Hatch MD Active ACZONE 5 % EXTERNAL GEL apply once daily to face 5 DAPSONE 15307428761 No Longer Active Madelin Hatch MD Active PROZAC 10 MG ORAL CAPSULE Take 1 tab daily for 1 week. Then increase to 20mg daily. FLUOXETINE HCL 60295973457 No Longer Active Yulissa ortega Cristina STRICKLANDN Active CITALOPRAM HYDROBROMIDE 20 MG ORAL TABLET take 1 tab p o qday for depresion and anxiety. CITALOPRAM HYDROBROMIDE 39197967969 No L onger Active Shannan Evans APRN Active CYANOCOBALAMIN 1000 MCG/ML INJECTION SOLUTION 1 inject ion weekly for 1 month, than 1 a month for 2 months. recheck lab CYANOCO BALAMIN 68196625960 No Longer Active Shannan Evans APRN Active ULTRAM 50 MG ORAL TABLET 1 TAB PO Q 6 HRS PRN HEADACHE TRAMADOL HCL 71657596715 Active Adrián Varghese MD Active ULTRAM 50 MG ORAL TABLET take 1 tab po q 6 hrs prn headache pain TRAMADOL HCL 07105326313 No Longer Active Adrián Varghese MD Active CLINDAMYCIN PHOSPHATE 2 % VAGINAL CREAM apply cream to acne BID prn CLINDAMYCIN PHOSPHATE 14066260334 No Longer Active Adrián dyson MD Active MINOCYCLINE HCL 100 MG ORAL CAPSULE take one po BID 13/11/25 MINOCYCLINE HCL 67172332783 No Longer Active Adrián Varghese MD A ctive TRI-SPRINTEC 0.18/0.215/0.25 MG-35 MCG ORAL TABLET 1 po qd a s directed NORGESTIM-ETH ESTRAD TRIPHASIC 21624690334 Active Madelin Hatch MD Active ZITHROMAX 250 MG ORAL TABLET 2 po today, then 1 po q days 2-5 20 12/07/06 AZITHROMYCIN 39740470314 No Longer Active Adrián Varghese MD Active ZITHROMAX 250 MG ORAL TABLET 2 po today, then 1 po q days 2-5 20 11/06/16 AZITHROMYCIN 40929988483 No Longer Active Adrián Varghese MD Active PREDNISONE 20 MG ORAL TABLET 2 tabs daily for 3 days, 1 tab daily for 3 days, 1/2 tab daily for 2 days PREDNISONE 62894067510 No Longer Active Adrián Varghese MD Active ZANTAC 75 75 MG ORAL TABLET take 1 po BID RANIT IDINE HCL 39409786415 No Longer Active Uriel BOYD Active BENZACLIN 1-5 % EXTERNAL GEL apply to skin BID prn for acne 2012 CLINDAMYCIN PHOS-BENZOYL PEROX 41144328869 No Longer Active Uriel BOYD Active BENZACLIN 1-5 % EXTERNAL GEL apply to skin BID prn for acne 2012 BENZACLIN 1-5 % EXTERNAL GEL 207995 CLINDAMYCIN PHOS-BE NZOYL PEROX Inactive MINOCYCLINE HCL 100 MG ORAL CAPSULE take one po BID 13/11/25 MINOCYCLINE HCL 100 MG ORAL CAPSULE 783030 MINOCYCLINE HCL Inac tive CLINDAMYCIN PHOSPHATE 2 % VAGINAL CREAM apply cream to acne BID prn CLINDAMYCIN PHOSPHATE 2 % VAGINAL CREAM 387983 CLINDAMY ANGELIA PHOSPHATE Inactive ULTRAM 50 MG ORAL TABLET take 1 tab po q 6 hrs prn headache pain ULTRAM 50 MG ORAL TABLET 352441 TRAMADOL HCL Inactiv e CYANOCOBALAMIN 1000 MCG/ML INJECTION SOLUTION 1 inject ion weekly for 1 month, than 1 a month for 2 months. recheck lab CYANOCOBALAMIN 1000 MCG/ML INJECTION SOLUTION 378573 CYANOCOBALAMIN Inactive CITALOPRAM HYDROBROMIDE 20 MG ORAL TABLET take 1 tab p o qday for depresion and anxiety. CITALOPRAM HYDROBROMIDE 20 MG ORAL TABLET 113146 CITALOPRAM HYDROBROMIDE Inactive PROZAC 10 MG ORAL CAPSULE Take 1 tab daily for 1 week. Then increase to 20mg daily. PROZAC 10 MG ORAL CAPSULE 855586 FLUOXETINE HCL Inactive ACZONE 5 % EXTERNAL GEL apply once daily to face 07/22 ACZONE 5 % EXTERNAL GEL 707679 DAPSONE Inactive SULFAMETHOXAZOLE-TRIMETHOPRIM 800-160 MG ORAL TABLET T QUINCY 1 TABLET BY MOUTH DAILY DIRECTED SULFAMETHOXAZOLE-TRI METHOPRIM 800-160 MG ORAL TABLET 731460 SULFAMETHOXAZOLE-TRIMETHOPRIM Inactive ZANTAC 75 75 MG ORAL TABLET take 1 po BID ZANTAC 75 75 MG ORAL TABLET 511853 RANITIDINE HCL Inactive PREDNISONE 20 MG ORAL TABLET 2 tabs daily for 3 days, 1 tab daily for 3 days, 1/2 tab daily for 2 days PREDNISONE 20 MG ORAL T ABLET 784039 PREDNISONE Inactive ZITHROMAX 250 MG ORAL TABLET 2 po today, then 1 po q days 2-5 20 11/06/16 ZITHROMAX 250 MG ORAL TABLET 208039 AZITHROMYCIN [place] ctive ZITHROMAX 250 MG ORAL TABLET 2 po today, then 1 po q days 2-5 20 12/07/06 ZITHROMAX 250 MG ORAL TABLET 661261 AZITHROMYCIN [place] ctive Immunizations Vaccine Administration Date [...] Value Unit Range Description Lab Report: Chlamydia/GC APTIMA/99125 - Lab chlamydia DNA probe NOT DETECTED NOT DETECTED chlamydia DNA probe NOT DETECTED NOT DETECTED Lab Report: Chlamydia/GC APTIMA/23170 - Microbiology Neisseria gonorrhoeae DNA probe NOT DETECTED NO T DETECTED Neisseria gonorrhoeae DNA probe NOT DETECTED NO T DETECTED Lab Report: Comp. Metabolic Panel - Chem istry sodium, serum 141 mmol/L 561-010 0309/11/22 carbon dioxide, venous blood 25.2 mmol/L 21.0-32 .0 potassium, serum 3.8 mmol/L 3.5-5.2 chloride, serum 104 mmol/L 98-107 blood glucose 95 mg/dL 65-110 urea nitrogen, blood 15 mg/dL 7-18 creatinine, serum 0.79 mg/dL 0.60-1.30 alanine aminotransferase (SGPT), serum 28 U/L 10-55 aspartate aminotransferase (SGOT), serum 17 U/L 15-45 calcium, serum 8.9 mg/dL 8.5-10.1 bilirubin, serum, total 0.30 mg/dL 0.20-1.00 sodium, serum 139 mmol/L 244-470 4203/09/06 carbon dioxide, venous blood 25.3 mmol/L 21.0-32 [...] 5.0-8.5 Encounters Code Encounter Date Provider Facility CPT-04062 Level 3 New Patient 12:59:59 CDT Madelin almodovar MD [facility] CPT-32975 Level 3 Est. Patient 10:07:39 INTERN ARCHITECT Cale morris [facility] CPT-93639 Level 3 Est. Patient 11:35:37 INTERN ARCHITECT Cale morris [facility] CPT-98039 Level 4 Est. Patient 11:10:55 CDT Shannan Are ll [facility] CPT-02002 Level 4 Est. Patient 14:07:40 CDT Shannan Are ll [facility] CPT-99973 Level 4 Est. Patient 13:54:09 CDT Adrián dyson MD [facility] CPT-97720 Level 3 Est. Patient 09:22:14 CDT Adrián dsyon MD [facility]-16428 Level 3 Est. Patient 08:59:31 CDT Adrián dyson MD [facility]-66866 Level 3 Est. Patient 11:58:31 CDT Adrián dyson MD [facility] CPT-00091 Level 3 Est. Patient 09:06:35 CDT Adrián dyson MD [facility] CPT-55210 Level 3 Est. Patient 09:18:45 CDT Adrián dyson MD [facility] CPT-88085 Level 3 Est. Patient 09:13:22 CDT Adrián dyson MD [facility] CPT-44376 Level 3 Est. Patient 18:04:31 INTERN ARCHITECT Adrián dyson MD [facility] CPT-91439 Level 4 Est. Patient 14:00:53 CDT Uriel bhatia [facility] CPT-48524 Level 3 Est. Patient 20:00:09 CDT Terry jenkins DO [facility] CPT-69638 Level 3 Est. Patient 08:45:08 CDT Uriel bhatia [facility] CPT-86059 Level 3 Est. Patient 09:09:26 CDT Uriel bhatia [facility] CPT-09637 Level 3 Est. Patient 16:32:31 CDT Adrián dyson MD [facility] CPT-65574 Level 3 Est. Patient 09:35:27 INTERN ARCHITECT Norman fuentes [facility] CPT-01691 Level 2 Est. Patient 16:51:37 INTERN ARCHITECT Adrián dyson MD [facility] CPT-19667 Level 3 Est. Patient 10:00:11 INTERN ARCHITECT Ace Arriaza MD [facility] Procedures Code Procedure Name Date Entry Date Standard Desc ription CPT-75450 Addl Vx - Ix admin via ID IM or jet injects without counseling by physician 15:35:10 CDT CPT-20541 Meningococcal B, recombinant vaccine 15:35:10 CDT CPT-01252 First Vx - Ix admin via ID I M or jet injects without counseling by physician 15:35:10 CDT CPT-38879 Havrix Intramuscular Suspension 720 EL U /0.5ML 15:35:10 CDT CPT-57954 First Vx - Ix admin via ID I M or jet injects without counseling by physician 14:18:02 CDT CPT-52408 Gardasil 9 Intramuscular Suspension 1 4:18:02 CDT CPT-J3420 Vitamin B12 1000mcg (Cyanocobalamin) 16:30:23 CDT CPT-37414 Abx/Therapy Injection 16:30:23 CDT CPT-J3420 Vitamin B12 1000mcg (Cyanocobalamin) 16:09:42 CDT CPT-04638 Abx/Therapy Injection 16:09:42 CDT CPT-J3420 Vitamin B12 1000mcg (Cyanocobalamin) 15:22:47 CDT CPT-15801 Abx/Therapy Injection 15:22:47 CDT CPT-J3420 Vitamin B12 1000mcg (Cyanocobalamin) 17:00:35 CDT CPT-86139 Abx/Therapy Injection 17:00:35 CDT CPT-49465 First Vx - Ix admin via ID I M or jet injects without counseling by physician 16:04:17 INTERN ARCHITECT CPT-44589 Gardasil 9 Intramuscular Suspension 1 6:04:17 INTERN ARCHITECT CPT-67844 Venipuncture Draw Fee 09:40:26 CDT CPT-48976 [place] Spot - LAB USE ONLY 09:40:26 CDT 11/30 CPT-29339 CBC with Diff - LAB USE ONLY 09:40:26 CDT 2 CPT-94356 Addl Vx - Ix admin via ID IM or jet injects without counseling by physician 09:40:21 CDT CPT-18897 Menactra Intramuscular Injectable 09:40:21 CDT CPT-91945 Addl Vx - Ix admin via ID IM or jet injects without counseling by physician 09:40:21 CDT CPT-94457 Gardasil 9 Intramuscular Suspension 0 9:40:21 CDT CPT-83370 First Vx - Ix admin via ID I M or jet injects without counseling by physician 09:40:21 CDT CPT-19921 Havrix Intramuscular Suspension 720 EL U /0.5ML 09:40:21 CDT CPT-J2930 Solu Medrol 125 mg (Methyl Prednisolone Sodium Succinate) 09:43:26 CDT CPT-61948 Abx/Therapy Injection 09:43:26 CDT CPT-J2930 Solu Medrol 125 mg (Methyl Prednisolone Sodium Succinate) 09:05:55 CDT CPT-55620 Abx/Therapy Injection 09:05:55 CDT CPT-49289 Venipuncture Draw Fee 14:01:33 CDT CPT-19900 EKG Trac and Interp 11:22:04 CDT CPT-39527 Venipuncture Draw Fee 10:53:35 CDT CPT-J2930 Solu Medrol 125 mg (Methyl Prednisolone Sodium Succinate) 09:29:26 CDT CPT-13617 Abx/Therapy Injection 09:29:26 CDT CPT-Cryo Cryotherapy 16:51:37 INTERN ARCHITECT
--- OUTSIDE RECORDS SUMMARY | 2019-07-22 19:36 | XMS REPORT | Clinical Summary ---
Author Author Yovanny, Clarisa Christopher Organization [facility] Address Unknown Phone Unavailable Allergies, Adverse Reactions, [...] to acne BID prn 06/14 CLINDAMYCIN PHOSPHATE 65779752577 No Longer Active Adrián Joseph Active MINOCYCLINE HCL 100 MG CAPS take one po BID MINOCYCLINE HCL 67901600236 No Longer Active Adrián Varghese MD Acti ve TRI-SPRINTEC 0.18/0.215/0.25 MG-35 MCG TABS 1 po qd as directed 201 07/04/00 NORGESTIM-ETH ESTRAD TRIPHASIC 33894351695 Active Adrián Varghese MD Active ZITHROMAX 250 MG TAB 2 po today, then 1 po q days 2-5 AZITHROMYCIN 92445115162 No Longer Active Adrián Varghese MD Acti ve ULTRAM 50 MG TAB take 1 tab po q 6 hrs prn headache pain TRAMADOL HCL 07681837287 Active Adrián Varghese MD Active ZITHROMAX 250 MG TAB 2 po today, then 1 po q days 2-5 AZITHROMYCIN 74070946081 No Longer Active Adrián Varghese MD Acti ve PREDNISONE 20 MG TAB 2 tabs daily for 3 days, 1 t ab daily for 3 days, 1/2 tab daily for 2 days PREDNISONE 61393603337 No Longer Active Adrián Varghese MD Active ZANTAC 75 75 MG TABS take 1 po BID RANITIDINE H CL 93011568483 No Longer Active Uriel BOYD Active BENZACLIN 1-5 % GEL apply to skin BID prn for acne 201 05/05/14 CLINDAMYCIN PHOS-BENZOYL PEROX 78459776616 No Longer Active Uriel BOYD Active BENZACLIN 1-5 % GEL apply to skin BID prn for acne 201 05/05/14 BENZACLIN 1-5 % GEL 115536 CLINDAMYCIN PHOS-BENZOYL PEROX Inactive MINOCYCLINE HCL 100 MG CAPS take one po BID MINOCYCLINE HCL 100 MG CAPS 947102 MINOCYCLINE HCL Inactive CLINDAMYCIN PHOSPHATE 2 % CREA apply cream to acne BID prn 06/14 CLINDAMYCIN PHOSPHATE 2 % CREA 082125 CLINDAMYCIN PHOSP HATE Inactive ZANTAC 75 75 MG TABS take 1 po BID ZANTAC 75 75 MG TABS 098327 RANITIDINE HCL Inactive PREDNISONE 20 MG TAB 2 tabs daily for 3 days, 1 t ab daily for 3 days, 1/2 tab daily for 2 days PREDNISONE 20 MG TAB 624252 PREDNISON E Inactive ZITHROMAX 250 MG TAB 2 po today, then 1 po q days 2-5 ZITHROMAX 250 MG TAB 1922648 AZITHROMYCIN Inactive ZITHROMAX 250 MG TAB 2 po today, then 1 po q days 2-5 ZITHROMAX 250 MG TAB 9179374 AZITHROMYCIN Inactive Immunizations Vaccine Administration Date Value [...] [phone] Encounters Code Encounter Date Provider Facility CPT-75681 Level 3 Est. Patient 09:22:14 CDT Adrián dyson MD [facility] CPT-01468 Level 3 Est. Patient 08:59:31 CDT Adrián dyson MD [facility] CPT-53534 Level 3 Est. Patient 11:58:31 CDT Adrián dyson MD [facility] CPT-64523 Level 3 Est. Patient 09:06:35 CDT Adrián dyson MD [facility] CPT-62114 Level 3 Est. Patient 09:18:45 CDT Adrián dyson MD [facility] CPT-27760 Level 3 Est. Patient 09:13:22 CDT Adrián dyson MD [facility] CPT-08104 Level 3 Est. 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 Patient 14:00:53 CDT Richcristian Ashleyclarissa sriram [facility] CPT-82107 Level 3 Est. Patient 20:00:09 CDT Terry jenkins DO [facility] CPT-21894 Level 3 Est. Patient 08:45:08 CDT Uriel bhatia [facility] CPT-23502 Level 3 Est. Patient 09:09:26 CDT Uriel hintonist [facility] CPT-77452 Level 3 Est. Patient 16:32:31 CDT Adrián dyson MD [facility] CPT-19414 Level 3 Est. 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 Ace Arriaza MD [facility] Procedures Code Procedure Name Date Entry Date Standard Desc ription CPT-16791 Addl Vx - Ix admin via ID IM or jet injects without counseling by physician 09:40:21 CDT CPT-63396 Menactra Intramuscular Injectable 09:40:21 CDT CPT-19667 Addl Vx - Ix admin via ID IM or jet injects without counseling by physician 09:40:21 CDT CPT-76601 Gardasil 9 Intramuscular Suspension 0 9:40:21 CDT CPT-90789 First Vx - Ix admin via ID I M or jet injects without counseling by physician 09:40:21 CDT CPT-02505 Havrix Intramuscular Suspension 720 EL U /0.5ML 09:40:21 CDT CPT-J2930 Solu Medrol 125 mg (Methyl Prednisolone Sodium Succinate) 09:43:26 CDT CPT-32830 Abx/Therapy Injection 09:43:26 CDT CPT-J2930 Solu Medrol 125 mg (Methyl Prednisolone Sodium Succinate) 09:05:55 CDT CPT-36286 Abx/Therapy Injection 09:05:55 CDT CPT-32410 Venipuncture Draw Fee 14:01:33 CDT CPT-62922 EKG Trac and Interp 11:22:04 CDT CPT-68237 Venipuncture Draw Fee 10:53:35 CDT CPT-J2930 Solu Medrol 125 mg (Methyl Prednisolone Sodium Succinate) 09:29:26 CDT CPT-76846 Abx/Therapy Injection 09:29:26 CDT CPT-Cryo Cryotherapy 16:51:37 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
--- OUTSIDE RECORDS SUMMARY | 2019-07-22 19:36 | XMS REPORT | Clinical Summary ---
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 Other atopic dermatitis and related conditions [...] 1 TABLET BY MOUTH DAILY DIRECTED SULFAMETHOXAZOLE-TRIMETHOPRIM 96250988348 No Longer Active Madelin Hatch MD Active BUSPIRONE HCL 7.5 MG ORAL TABLET PRN BUSPIR ONE HCL 27284693195 Active Madelin Hatch MD Active PROZAC 20 MG ORAL CAPSULE PRN FLUOXETINE HCL 0077 2454965 Active Madelin Hatch MD Active ABSORICA 20 MG ORAL CAPSULE 1 tablet daily ISOT RETINOIN 59972410377 Active Madelin Hatch MD Active ACZONE 5 % EXTERNAL GEL apply once daily to face 5 DAPSONE 02372292072 No Longer Active Madelin Hatch MD Active PROZAC 10 MG ORAL CAPSULE Take 1 tab daily for 1 week. Then increase to 20mg daily. FLUOXETINE HCL 11978864625 No Longer Active Yulissa ortega Cristina STRICKLANDN Active CITALOPRAM HYDROBROMIDE 20 MG ORAL TABLET take 1 tab p o qday for depresion and anxiety. CITALOPRAM HYDROBROMIDE 96294220944 No L onger Active Shannan Evans APRN Active CYANOCOBALAMIN 1000 MCG/ML INJECTION SOLUTION 1 inject ion weekly for 1 month, than 1 a month for 2 months. recheck lab CYANOCO BALAMIN 46285978993 No Longer Active Shannan Evans APRN Active ULTRAM 50 MG ORAL TABLET 1 TAB PO Q 6 HRS PRN HEADACHE TRAMADOL HCL 53045059110 Active Adrián Varghese MD Active ULTRAM 50 MG ORAL TABLET take 1 tab po q 6 hrs prn headache pain TRAMADOL HCL 15005756614 No Longer Active Adrián Varghese MD Active CLINDAMYCIN PHOSPHATE 2 % VAGINAL CREAM apply cream to acne BID prn CLINDAMYCIN PHOSPHATE 13413578372 No Longer Active Adrián dyson MD Active MINOCYCLINE HCL 100 MG ORAL CAPSULE take one po BID 13/11/25 MINOCYCLINE HCL 83722581196 No Longer Active Adrián Varghese MD A ctive TRI-SPRINTEC 0.18/0.215/0.25 MG-35 MCG ORAL TABLET 1 po qd a s directed NORGESTIM-ETH ESTRAD TRIPHASIC 11459706703 Active Madelin Hatch MD Active ZITHROMAX 250 MG ORAL TABLET 2 po today, then 1 po q days 2-5 20 12/07/06 AZITHROMYCIN 78078533389 No Longer Active Adrián Varghese MD Active ZITHROMAX 250 MG ORAL TABLET 2 po today, then 1 po q days 2-5 20 11/06/16 AZITHROMYCIN 50080639255 No Longer Active Ardián Varghese MD Active PREDNISONE 20 MG ORAL TABLET 2 tabs daily for 3 days, 1 tab daily for 3 days, 1/2 tab daily for 2 days PREDNISONE 92461866521 No Longer Active Adrián Varghese MD Active ZANTAC 75 75 MG ORAL TABLET take 1 po BID RANIT IDINE HCL 82381021516 No Longer Active Uriel BOYD Active BENZACLIN 1-5 % EXTERNAL GEL apply to skin BID prn for acne 2012 CLINDAMYCIN PHOS-BENZOYL PEROX 15420819581 No Longer Active Uriel BOYD Active BENZACLIN 1-5 % EXTERNAL GEL apply to skin BID prn for acne 2012 BENZACLIN 1-5 % EXTERNAL GEL 244788 CLINDAMYCIN PHOS-BE NZOYL PEROX Inactive MINOCYCLINE HCL 100 MG ORAL CAPSULE take one po BID 13/11/25 MINOCYCLINE HCL 100 MG ORAL CAPSULE 994362 MINOCYCLINE HCL Inac tive CLINDAMYCIN PHOSPHATE 2 % VAGINAL CREAM apply cream to acne BID prn CLINDAMYCIN PHOSPHATE 2 % VAGINAL CREAM 140604 CLINDAMY ANGELIA PHOSPHATE Inactive ULTRAM 50 MG ORAL TABLET take 1 tab po q 6 hrs prn headache pain ULTRAM 50 MG ORAL TABLET 257091 TRAMADOL HCL Inactiv e CYANOCOBALAMIN 1000 MCG/ML INJECTION SOLUTION 1 inject ion weekly for 1 month, than 1 a month for 2 months. recheck lab CYANOCOBALAMIN 1000 MCG/ML INJECTION SOLUTION 215335 CYANOCOBALAMIN Inactive CITALOPRAM HYDROBROMIDE 20 MG ORAL TABLET take 1 tab p o qday for depresion and anxiety. CITALOPRAM HYDROBROMIDE 20 MG ORAL TABLET 375913 CITALOPRAM HYDROBROMIDE Inactive PROZAC 10 MG ORAL CAPSULE Take 1 tab daily for 1 week. Then increase to 20mg daily. PROZAC 10 MG ORAL CAPSULE 332335 FLUOXETINE HCL Inactive ACZONE 5 % EXTERNAL GEL apply once daily to face 07/22 ACZONE 5 % EXTERNAL GEL 821058 DAPSONE Inactive SULFAMETHOXAZOLE-TRIMETHOPRIM 800-160 MG ORAL TABLET T QUINCY 1 TABLET BY MOUTH DAILY DIRECTED SULFAMETHOXAZOLE-TRI METHOPRIM 800-160 MG ORAL TABLET 800108 SULFAMETHOXAZOLE-TRIMETHOPRIM Inactive ZANTAC 75 75 MG ORAL TABLET take 1 po BID ZANTAC 75 75 MG ORAL TABLET 204574 RANITIDINE HCL Inactive PREDNISONE 20 MG ORAL TABLET 2 tabs daily for 3 days, 1 tab daily for 3 days, 1/2 tab daily for 2 days PREDNISONE 20 MG ORAL T ABLET 685198 PREDNISONE Inactive ZITHROMAX 250 MG ORAL TABLET 2 po today, then 1 po q days 2-5 20 11/06/16 ZITHROMAX 250 MG ORAL TABLET 700884 AZITHROMYCIN [place] ZITHROMAX 250 MG ORAL TABLET 2 po today, then 1 po q days 2-5 20 12/07/06 ZITHROMAX 250 MG ORAL TABLET 638444 AZITHROMYCIN [place] Immunizations Vaccine Administration Date [...] Value Unit Range Description Lab Report: Chlamydia/GC APTIMA/11459 - Lab chlamydia DNA probe NOT DETECTED NOT DETECTED chlamydia DNA probe NOT DETECTED NOT DETECTED Lab Report: Chlamydia/GC APTIMA/21866 - Microbiology Neisseria gonorrhoeae DNA probe NOT DETECTED NO T DETECTED Neisseria gonorrhoeae DNA probe NOT DETECTED NO T DETECTED Lab Report: Comp. Metabolic Panel - Chem istry potassium, serum 3.8 mmol/L 3.5-5.2 carbon dioxide, venous blood 25.3 mmol/L 21.0-32 .0 sodium, serum 139 mmol/L 421-802 5324/09/06 blood glucose 85 mg/dL 65-110 chloride, serum 102 mmol/L 98-107 sodium, serum 141 mmol/L 600-401 8250/11/22 carbon dioxide, venous blood 25.2 mmol/L 21.0-32 [...] 5.0-8.5 Encounters Code Encounter Date Provider Facility CPT-49932 Level 3 New Patient 12:59:59 CDT Madelin almodovar MD [facility] CPT-00313 Level 3 Est. Patient 10:07:39 PEDIATRIC ONCOLOGIST Cale morris [facility] CPT-10858 Level 3 Est. Patient 11:35:37 PEDIATRIC ONCOLOGIST Cale morris [facility] CPT-16417 Level 4 Est. Patient 11:10:55 CDT Shannan Are [facility] CPT-87529 Level 4 Est. Patient 14:07:40 CDT Shannan Are ll [facility] CPT-32074 Level 4 Est. Patient 13:54:09 CDT Adrián dyson MD [facility]-78929 Level 3 Est. Patient 09:22:14 CDT Adrián dyson MD [facility]-05073 Level 3 Est. Patient 08:59:31 CDT Adrián dyson MD [facility]-19366 Level 3 Est. Patient 11:58:31 CDT Adrián dyson MD [facility] [facility]-22309 Level 3 Est. Patient 09:06:35 CDT Adrián dyson MD [facility]-96047 Level 3 Est. Patient 09:18:45 CDT Adrián dyson MD [facility] CPT-08426 Level 3 Est. Patient 09:13:22 CDT Adrián dyson MD [facility]-61160 Level 3 Est. Patient 18:04:31 PEDIATRIC ONCOLOGIST Adrián dyson MD [facility] CPT-14715 Level 4 Est. Patient 14:00:53 CDT Uriel bhatia [facility] CPT-47139 Level 3 Est. Patient 20:00:09 CDT Terry jenkins DO [facility] CPT-94857 Level 3 Est. Patient 08:45:08 CDT Uriel bhatia [facility]-07337 Level 3 Est. Patient 09:09:26 CDT Uriel bhatia [facility] CPT-46766 Level 3 Est. Patient 16:32:31 CDT Adrián dyson MD [facility]-62016 Level 3 Est. Patient 09:35:27 PEDIATRIC ONCOLOGIST Norman BOYD [facility] CPT-25203 Level 2 Est. Patient 16:51:37 PEDIATRIC ONCOLOGIST Adrián dyson MD [facility] CPT-08512 Level 3 Est. Patient 10:00:11 PEDIATRIC ONCOLOGIST Ace Arriaza MD [facility] Procedures Code Procedure Name Date Entry Date Standard Desc ription CPT-94310 Addl Vx - Ix admin via ID IM or jet injects without counseling by physician 15:35:10 CDT CPT-83702 Meningococcal B, recombinant vaccine 15:35:10 CDT CPT-74824 First Vx - Ix admin via ID I M or jet injects without counseling by physician 15:35:10 CDT CPT-45412 Havrix Intramuscular Suspension 720 EL U /0.5ML 15:35:10 CDT CPT-26520 First Vx - Ix admin via ID I M or jet injects without counseling by physician 14:18:02 CDT CPT-86392 Gardasil 9 Intramuscular Suspension 1 4:18:02 CDT CPT-J3420 Vitamin B12 1000mcg (Cyanocobalamin) 16:30:23 CDT CPT-64932 Abx/Therapy Injection 16:30:23 CDT CPT-J3420 Vitamin B12 1000mcg (Cyanocobalamin) 16:09:42 CDT CPT-77036 Abx/Therapy Injection 16:09:42 CDT CPT-J3420 Vitamin B12 1000mcg (Cyanocobalamin) 15:22:47 CDT CPT-82613 Abx/Therapy Injection 15:22:47 CDT CPT-J3420 Vitamin B12 1000mcg (Cyanocobalamin) 17:00:35 CDT CPT-12506 Abx/Therapy Injection 17:00:35 CDT CPT-98081 First Vx - Ix admin via ID I M or jet injects without counseling by physician 16:04:17 PEDIATRIC ONCOLOGIST CPT-17841 Gardasil 9 Intramuscular Suspension 1 6:04:17 PEDIATRIC ONCOLOGIST CPT-55437 Venipuncture Draw Fee 09:40:26 CDT CPT-43720 [place] [facility] - LAB USE ONLY 09:40:26 CDT 11/30 CPT-71498 CBC with Diff - LAB USE ONLY 09:40:26 CDT 2 CPT-99188 Addl Vx - Ix admin via ID IM or jet injects without counseling by physician 09:40:21 CDT CPT-50555 Menactra Intramuscular Injectable 09:40:21 CDT CPT-83177 Addl Vx - Ix admin via ID IM or jet injects without counseling by physician 09:40:21 CDT CPT-26355 Gardasil 9 Intramuscular Suspension 0 9:40:21 CDT CPT-92919 First Vx - Ix admin via ID I M or jet injects without counseling by physician 09:40:21 CDT CPT-71825 Havrix Intramuscular Suspension 720 EL U /0.5ML 09:40:21 CDT CPT-J2930 Solu Medrol 125 mg (Methyl Prednisolone Sodium Succinate) 09:43:26 CDT CPT-73689 Abx/Therapy Injection 09:43:26 CDT CPT-J2930 Solu Medrol 125 mg (Methyl Prednisolone Sodium Succinate) 09:05:55 CDT CPT-50701 Abx/Therapy Injection 09:05:55 CDT CPT-40370 Venipuncture Draw Fee 14:01:33 CDT CPT-62940 EKG Trac and Interp 11:22:04 CDT CPT-79782 Venipuncture Draw Fee 10:53:35 CDT CPT-J2930 Solu Medrol 125 mg (Methyl Prednisolone Sodium Succinate) 09:29:26 CDT CPT-06252 Abx/Therapy Injection 09:29:26 CDT CPT-Cryo Cryotherapy 16:51:37 PEDIATRIC ONCOLOGIST
--- OUTSIDE RECORDS SUMMARY | 2019-07-22 19:36 | XMS REPORT | Clinical Summary ---
Author Author Yovanny, Clarisa Christopher Organization [facility] Address Unknown Phone Unavailable Allergies, [...] to acne BID prn 06/14 CLINDAMYCIN PHOSPHATE 50329365644 No Longer Active Adrián Joseph Active MINOCYCLINE HCL 100 MG CAPS take one po BID MINOCYCLINE HCL 71289877853 No Longer Active Adrián Varghese MD Acti ve TRI-SPRINTEC 0.18/0.215/0.25 MG-35 MCG TABS 1 po qd as directed 201 07/04/00 NORGESTIM-ETH ESTRAD TRIPHASIC 05528391464 Active Adrián Varghese MD Active ZITHROMAX 250 MG TAB 2 po today, then 1 po q days 2-5 AZITHROMYCIN 45462931796 No Longer Active Adrián Varghese MD Acti ve ULTRAM 50 MG TAB take 1 tab po q 6 hrs prn headache pain TRAMADOL HCL 69315666058 Active Adrián Varghese MD Active ZITHROMAX 250 MG TAB 2 po today, then 1 po q days 2-5 AZITHROMYCIN 60567417677 No Longer Active Adrián Varghese MD Acti ve PREDNISONE 20 MG TAB 2 tabs daily for 3 days, 1 t ab daily for 3 days, 1/2 tab daily for 2 days PREDNISONE 41040833672 No Longer Active Adrián Varghese MD Active ZANTAC 75 75 MG TABS take 1 po BID RANITIDINE H CL 70547327603 No Longer Active Uriel BOYD Active BENZACLIN 1-5 % GEL apply to skin BID prn for acne 201 05/05/14 CLINDAMYCIN PHOS-BENZOYL PEROX 37939176931 No Longer Active Uriel BOYD Active BENZACLIN 1-5 % GEL apply to skin BID prn for acne 201 05/05/14 BENZACLIN 1-5 % GEL 978643 CLINDAMYCIN PHOS-BENZOYL PEROX Inactive MINOCYCLINE HCL 100 MG CAPS take one po BID MINOCYCLINE HCL 100 MG CAPS 228041 MINOCYCLINE HCL Inactive CLINDAMYCIN PHOSPHATE 2 % CREA apply cream to acne BID prn 06/14 CLINDAMYCIN PHOSPHATE 2 % CREA 134514 CLINDAMYCIN PHOSP HATE Inactive ZANTAC 75 75 MG TABS take 1 po BID ZANTAC 75 75 MG TABS 575645 RANITIDINE HCL Inactive PREDNISONE 20 MG TAB 2 tabs daily for 3 days, 1 t ab daily for 3 days, 1/2 tab daily for 2 days PREDNISONE 20 MG TAB 033504 PREDNISON E Inactive ZITHROMAX 250 MG TAB 2 po today, then 1 po q days 2-5 ZITHROMAX 250 MG TAB 6838169 AZITHROMYCIN Inactive ZITHROMAX 250 MG TAB 2 po today, then 1 po q days 2-5 ZITHROMAX 250 MG TAB 7296178 AZITHROMYCIN Inactive Immunizations Vaccine Administration Date Value [...] [phone] Encounters Code Encounter Date Provider Facility CPT-02102 Level 3 Est. Patient 09:22:14 CDT Adrián dyson MD [facility] CPT-49294 Level 3 Est. Patient 08:59:31 CDT Adrián dyson MD [facility] CPT-37805 Level 3 Est. Patient 11:58:31 CDT Adrián dyson MD [facility] CPT-98603 Level 3 Est. Patient 09:06:35 CDT Adrián dyson MD [facility] CPT-48703 Level 3 Est. Patient 09:18:45 CDT Adrián dyson MD [facility] CPT-64162 Level 3 Est. Patient 09:13:22 CDT Adrián dyson MD [facility] CPT-51370 Level 3 Est. Patient 18:04:31 TUNGSTEN REFINER Adrián dyson MD [facility] CPT-32206 Level 4 Est. Patient 14:00:53 CDT Uriel bhatia [facility] CPT-55689 Level 3 Est. Patient 20:00:09 CDT Terry jenkins DO [facility] CPT-00023 Level 3 Est. Patient 08:45:08 CDT Uriel bhatia [facility] CPT-45184 Level 3 Est. Patient 09:09:26 CDT Uriel bhatia [email or web address] CPT-05169 Level 3 Est. Patient 16:32:31 CDT Adrián dyson MD [facility] CPT-01445 Level 3 Est. Patient 09:35:27 TUNGSTEN REFINER Norman fuentes [facility] CPT-14325 Level 2 Est. Patient 16:51:37 TUNGSTEN REFINER Adrián dyson MD [facility] CPT-65603 Level 3 Est. Patient 10:00:11 TUNGSTEN REFINER Ace Arriaza MD [facility] Procedures Code Procedure Name Date Entry Date Standard Desc ription CPT-77530 First Vx - Ix admin via ID I M or jet injects without counseling by physician 16:04:17 TUNGSTEN REFINER CPT-56483 Gardasil 9 Intramuscular Suspension 1 6:04:17 TUNGSTEN REFINER CPT-52629 Venipuncture Draw Fee 09:40:26 CDT CPT-94167 [place] [facility] - LAB USE ONLY 09:40:26 CDT 11/30 CPT-38646 CBC with Diff - LAB USE ONLY 09:40:26 CDT 2 CPT-22655 Addl Vx - Ix admin via ID IM or jet injects without counseling by physician 09:40:21 CDT CPT-02424 Menactra Intramuscular Injectable 09:40:21 CDT CPT-98255 Addl Vx - Ix admin via ID IM or jet injects without counseling by physician 09:40:21 CDT CPT-95925 Gardasil 9 Intramuscular Suspension 0 9:40:21 CDT CPT-84109 First Vx - Ix admin via ID I M or jet injects without counseling by physician 09:40:21 CDT CPT-84812 Havrix Intramuscular Suspension 720 EL U /0.5ML 09:40:21 CDT CPT-J2930 Solu Medrol 125 mg (Methyl Prednisolone Sodium Succinate) 09:43:26 CDT CPT-18068 Abx/Therapy Injection 09:43:26 CDT CPT-J2930 Solu Medrol 125 mg (Methyl Prednisolone Sodium Succinate) 09:05:55 CDT CPT-83625 Abx/Therapy Injection 09:05:55 CDT CPT-66511 Venipuncture Draw Fee 14:01:33 CDT CPT-97337 EKG Trac and Interp 11:22:04 CDT CPT-27026 Venipuncture Draw Fee 10:53:35 CDT CPT-J2930 Solu Medrol 125 mg (Methyl Prednisolone Sodium Succinate) 09:29:26 CDT CPT-84412 Abx/Therapy Injection 09:29:26 CDT CPT-Cryo Cryotherapy 16:51:37 TUNGSTEN REFINER
--- OUTSIDE RECORDS SUMMARY | 2019-07-22 19:36 | XMS REPORT | Clinical Summary ---
Author Author Yovanny, Clarisa Christopher Organization [facility] Address Unknown Phone Unavailable [...] Then increase to 20mg daily. FLUOXETINE HCL 90199832625 No Longer Active Yulissa Gibbs APRN Active PROZAC 20 MG ORAL CAPSULE Take 1 tab daily FLUO XETINE HCL 15601240517 Active Shannan Gibbs APRN Active BUSPIRONE HCL 7.5 MG ORAL TABLET 1 pill twice daily, for anxiety 20 14/11/05 BUSPIRONE HCL 35678581258 Active Shannan Gibbs APRN Active CITALOPRAM HYDROBROMIDE 20 MG ORAL TABLET take 1 tab p o qday for depresion and anxiety. CITALOPRAM HYDROBROMIDE 85267359774 No L onger Active Shannan Gibbs APRN Active CYANOCOBALAMIN 1000 MCG/ML INJECTION SOLUTION 1 inject ion weekly for 1 month, than 1 a month for 2 months. recheck lab CYANOCO BALAMIN 99659419269 No Longer Active Shannan Gibbs APRN Active ULTRAM 50 MG ORAL TABLET 1 TAB PO Q 6 HRS PRN HEADACHE TRAMADOL HCL 17283631334 Active Adrián Varghese MD Active ULTRAM 50 MG ORAL TABLET take 1 tab po q 6 hrs prn headache pain TRAMADOL HCL 45237881680 No Longer Active Adrián Varghese MD Active CLINDAMYCIN PHOSPHATE 2 % VAGINAL CREAM apply cream to acne BID prn CLINDAMYCIN PHOSPHATE 65838844722 No Longer Active Adrián dyson MD Active MINOCYCLINE HCL 100 MG ORAL CAPSULE take one po BID 20 13/11/25 MINOCYCLINE HCL 26027368665 No Longer Active Adrián Varghese MD A ctive TRI-SPRINTEC 0.18/0.215/0.25 MG-35 MCG ORAL TABLET 1 po qd a s directed NORGESTIM-ETH ESTRAD TRIPHASIC 21062195294 Active Adrián Varghese MD Active ZITHROMAX 250 MG ORAL TABLET 2 po today, then 1 po q days 2-5 20 12/07/06 AZITHROMYCIN 07760516078 No Longer Active Adrián Varghese MD Active ZITHROMAX 250 MG ORAL TABLET 2 po today, then 1 po q days 2-5 20 11/06/16 AZITHROMYCIN 87244973007 No Longer Active Adrián Varghese MD Active PREDNISONE 20 MG ORAL TABLET 2 tabs daily for 3 days, 1 tab daily for 3 days, 1/2 tab daily for 2 days PREDNISONE 23360679526 No Longer Active Adrián Varghese MD Active ZANTAC 75 75 MG ORAL TABLET take 1 po BID RANIT IDINE HCL 77062740911 No Longer Active Uriel BOYD Active BENZACLIN 1-5 % EXTERNAL GEL apply to skin BID prn for acne 2012 CLINDAMYCIN PHOS-BENZOYL PEROX 79841493171 No Longer Active Uriel BOYD Active BENZACLIN 1-5 % EXTERNAL GEL apply to skin BID prn for acne 2012 BENZACLIN 1-5 % EXTERNAL GEL 220744 CLINDAMYCIN PHOS-BE NZOYL PEROX Inactive MINOCYCLINE HCL 100 MG ORAL CAPSULE take one po BID 13/11/25 MINOCYCLINE HCL 100 MG ORAL CAPSULE 924752 MINOCYCLINE HCL Inac tive CLINDAMYCIN PHOSPHATE 2 % VAGINAL CREAM apply cream to acne BID prn CLINDAMYCIN PHOSPHATE 2 % VAGINAL CREAM 656547 CLINDAMY ANGELIA PHOSPHATE Inactive ULTRAM 50 MG ORAL TABLET take 1 tab po q 6 hrs prn headache pain ULTRAM 50 MG ORAL TABLET 542218 TRAMADOL HCL Inactiv e CYANOCOBALAMIN 1000 MCG/ML INJECTION SOLUTION 1 inject ion weekly for 1 month, than 1 a month for 2 months. recheck lab CYANOCOBALAMIN 1000 MCG/ML INJECTION SOLUTION 033911 CYANOCOBALAMIN Inactive CITALOPRAM HYDROBROMIDE 20 MG ORAL TABLET take 1 tab p o qday for depresion and anxiety. CITALOPRAM HYDROBROMIDE 20 MG ORAL TABLET 632977 CITALOPRAM HYDROBROMIDE Inactive PROZAC 10 MG ORAL CAPSULE Take 1 tab daily for 1 week. Then increase to 20mg daily. PROZAC 10 MG ORAL CAPSULE 053784 FLUOXETINE HCL Inactive ZANTAC 75 75 MG ORAL TABLET take 1 po BID ZANTAC 75 75 MG ORAL TABLET 840061 RANITIDINE HCL Inactive PREDNISONE 20 MG ORAL TABLET 2 tabs daily for 3 days, 1 tab daily for 3 days, 1/2 tab daily for 2 days PREDNISONE 20 MG ORAL T ABLET 698399 PREDNISONE Inactive ZITHROMAX 250 MG ORAL TABLET 2 po today, then 1 po q days 2-5 20 11/06/16 ZITHROMAX 250 MG ORAL TABLET 598958 AZITHROMYCIN [place] ctive ZITHROMAX 250 MG ORAL TABLET 2 po today, then 1 po q days 2-5 20 12/07/06 ZITHROMAX 250 MG ORAL TABLET 261628 AZITHROMYCIN [place] ctive Immunizations Vaccine Administration Date [...] Value Unit Range Description Lab Report: Chlamydia/GC APTIMA/21235 - Lab chlamydia DNA probe NOT DETECTED NOT DETECTED Lab Report: Chlamydia/GC APTIMA/11071 - Microbiology Neisseria gonorrhoeae DNA probe NOT DETECTED NO T DETECTED Lab Report: Comp. Metabolic Panel - Chem istry sodium, serum 139 mmol/L 347-567 5356/09/06 carbon dioxide, venous blood 25.3 mmol/L 21.0-32 [...] 5.0-8.5 Encounters Code Encounter Date Provider Facility CPT-25621 Level 3 Est. Patient 10:07:39 TRANSPORT COORDINATOR Cale morris [facility] CPT-47842 Level 3 Est. Patient 11:35:37 TRANSPORT COORDINATOR Cale morris [facility] CPT-94604 Level 4 Est. Patient 11:10:55 [facility] 4 Est. Patient 14:07:40 CDT Shannan [facility] CPT-16918 Level 4 Est. Patient 13:54:09 CDT Adrián dyson MD [facility]-08084 Level 3 Est. Patient 09:22:14 CDT Adrián dyson MD [facility]-92890 Level 3 Est. Patient 08:59:31 CDT Adrián dyson MD [facility]-78498 Level 3 Est. Patient 11:58:31 CDT Adrián dyson MD [facility] CPT-28185 Level 3 Est. Patient 09:06:35 CDT Adrián dyson MD [facility]-74035 Level 3 Est. Patient 09:18:45 CDT Adrián dyson MD [facility]-04445 Level 3 Est. Patient 09:13:22 CDT Adrián dyson MD [facility]-79678 Level 3 Est. Patient 18:04:31 TRANSPORT COORDINATOR Adrián dyson MD [facility]-94306 Level 4 Est. Patient 14:00:53 CDT Uriel bhatia [facility] CPT-70029 Level 3 Est. Patient 20:00:09 CDT Terry jenkins DO [facility]-49958 Level 3 Est. Patient 08:45:08 CDT Uriel bhatia [facility] CPT-66548 Level 3 Est. Patient 09:09:26 CDT Uriel bhatia [facility]-80199 Level 3 Est. Patient 16:32:31 CDT Adrián dyson MD [facility]-77358 Level 3 Est. Patient 09:35:27 TRANSPORT COORDINATOR Norman fuentes [facility][note 3]-73145 Level 2 Est. Patient 16:51:37 TRANSPORT COORDINATOR Adrián dyson MD [facility] CPT-42452 Level 3 Est. Patient 10:00:11 TRANSPORT COORDINATOR Ace Arriaza MD [facility] Procedures Code Procedure Name Date Entry Date Standard Desc ription CPT-22714 First Vx - Ix admin via ID I M or jet injects without counseling by physician 14:18:02 CDT CPT-15055 Gardasil 9 Intramuscular Suspension 1 4:18:02 CDT CPT-J3420 Vitamin B12 1000mcg (Cyanocobalamin) 16:30:23 CDT CPT-21325 Abx/Therapy Injection 16:30:23 CDT CPT-J3420 Vitamin B12 1000mcg (Cyanocobalamin) 16:09:42 CDT CPT-00045 Abx/Therapy Injection 16:09:42 CDT CPT-J3420 Vitamin B12 1000mcg (Cyanocobalamin) 15:22:47 CDT CPT-65226 Abx/Therapy Injection 15:22:47 CDT CPT-J3420 Vitamin B12 1000mcg (Cyanocobalamin) 17:00:35 CDT CPT-77111 Abx/Therapy Injection 17:00:35 CDT CPT-86892 First Vx - Ix admin via ID I M or jet injects without counseling by physician 16:04:17 TRANSPORT COORDINATOR CPT-33180 Gardasil 9 Intramuscular Suspension 1 6:04:17 TRANSPORT COORDINATOR CPT-15368 Venipuncture Draw Fee 09:40:26 CDT CPT-58919 [place] [facility] - LAB USE ONLY 09:40:26 CDT 11/30 CPT-01921 CBC with Diff - LAB USE ONLY 09:40:26 CDT 2 CPT-64822 Addl Vx - Ix admin via ID IM or jet injects without counseling by physician 09:40:21 CDT CPT-74208 Menactra Intramuscular Injectable 09:40:21 CDT CPT-66912 Addl Vx - Ix admin via ID IM or jet injects without counseling by physician 09:40:21 CDT CPT-35517 Gardasil 9 Intramuscular Suspension 0 9:40:21 CDT CPT-59815 First Vx - Ix admin via ID I M or jet injects without counseling by physician 09:40:21 CDT CPT-55464 Havrix Intramuscular Suspension 720 EL U /0.5ML 09:40:21 CDT CPT-J2930 Solu Medrol 125 mg (Methyl Prednisolone Sodium Succinate) 09:43:26 CDT CPT-04731 Abx/Therapy Injection 09:43:26 CDT CPT-J2930 Solu Medrol 125 mg (Methyl Prednisolone Sodium Succinate) 09:05:55 CDT CPT-95637 Abx/Therapy Injection 09:05:55 CDT CPT-72946 Venipuncture Draw Fee 14:01:33 CDT CPT-87202 EKG Trac and Interp 11:22:04 CDT CPT-25750 Venipuncture Draw Fee 10:53:35 CDT CPT-J2930 Solu Medrol 125 mg (Methyl Prednisolone Sodium Succinate) 09:29:26 CDT CPT-53133 Abx/Therapy Injection 09:29:26 CDT CPT-Cryo Cryotherapy 16:51:37 TRANSPORT COORDINATOR
--- OUTSIDE RECORDS SUMMARY | 2019-07-22 19:37 | XMS REPORT | Clinical Summary ---
Author Author Yovanny, Clarisa Christopher Organization [facility] Address Unknown Phone Unavailable Allergies, Adverse Reactions, [...] Then increase to 20mg daily. FLUOXETINE HCL 55780234525 No Longer Active Yulissa Gibbs APRN Active PROZAC 20 MG ORAL CAPSULE Take 1 tab daily FLUO XETINE HCL 29342601077 Active Shannan Gibbs APRN Active BUSPIRONE HCL 7.5 MG ORAL TABLET 1 pill twice daily, for anxiety 20 14/11/05 BUSPIRONE HCL 91269946042 Active Shannan Gibbs APRN Active CITALOPRAM HYDROBROMIDE 20 MG ORAL TABLET take 1 tab p o qday for depresion and anxiety. CITALOPRAM HYDROBROMIDE 26710864685 No L onger Active Shannan Gibbs APRN Active CYANOCOBALAMIN 1000 MCG/ML INJECTION SOLUTION 1 inject ion weekly for 1 month, than 1 a month for 2 months. recheck lab CYANOCO BALAMIN 36106388501 No Longer Active Shannan Gibbs APRN Active ULTRAM 50 MG ORAL TABLET 1 TAB PO Q 6 HRS PRN HEADACHE TRAMADOL HCL 73334885327 Active Adrián Varghese MD Active ULTRAM 50 MG ORAL TABLET take 1 tab po q 6 hrs prn headache pain TRAMADOL HCL 17840895468 No Longer Active Adrián Varghese MD Active CLINDAMYCIN PHOSPHATE 2 % VAGINAL CREAM apply cream to acne BID prn CLINDAMYCIN PHOSPHATE 84456624573 No Longer Active Adrián dyson MD Active MINOCYCLINE HCL 100 MG ORAL CAPSULE take one po BID 20 13/11/25 MINOCYCLINE HCL 21901213107 No Longer Active Adrián Varghese MD A ctive TRI-SPRINTEC 0.18/0.215/0.25 MG-35 MCG ORAL TABLET 1 po qd a s directed NORGESTIM-ETH ESTRAD TRIPHASIC 32199831758 Active Adrián Varghese MD Active ZITHROMAX 250 MG ORAL TABLET 2 po today, then 1 po q days 2-5 20 12/07/06 AZITHROMYCIN 58999667308 No Longer Active Adrián Varghese MD Active ZITHROMAX 250 MG ORAL TABLET 2 po today, then 1 po q days 2-5 20 11/06/16 AZITHROMYCIN 93304597228 No Longer Active Adrián Varghese MD Active PREDNISONE 20 MG ORAL TABLET 2 tabs daily for 3 days, 1 tab daily for 3 days, 1/2 tab daily for 2 days PREDNISONE 18193876135 No Longer Active Adrián Varghese MD Active ZANTAC 75 75 MG ORAL TABLET take 1 po BID RANIT IDINE HCL 85232191114 No Longer Active Uriel BOYD Active BENZACLIN 1-5 % EXTERNAL GEL apply to skin BID prn for acne 2012 CLINDAMYCIN PHOS-BENZOYL PEROX 57445855779 No Longer Active Uriel BOYD Active BENZACLIN 1-5 % EXTERNAL GEL apply to skin BID prn for acne 2012 BENZACLIN 1-5 % EXTERNAL GEL 037500 CLINDAMYCIN PHOS-BE NZOYL PEROX Inactive MINOCYCLINE HCL 100 MG ORAL CAPSULE take one po BID 13/11/25 MINOCYCLINE HCL 100 MG ORAL CAPSULE 126780 MINOCYCLINE HCL Inac tive CLINDAMYCIN PHOSPHATE 2 % VAGINAL CREAM apply cream to acne BID prn CLINDAMYCIN PHOSPHATE 2 % VAGINAL CREAM 975236 CLINDAMY ANGELIA PHOSPHATE Inactive ULTRAM 50 MG ORAL TABLET take 1 tab po q 6 hrs prn headache pain ULTRAM 50 MG ORAL TABLET 371951 TRAMADOL HCL Inactiv e CYANOCOBALAMIN 1000 MCG/ML INJECTION SOLUTION 1 inject ion weekly for 1 month, than 1 a month for 2 months. recheck lab CYANOCOBALAMIN 1000 MCG/ML INJECTION SOLUTION 309463 CYANOCOBALAMIN Inactive CITALOPRAM HYDROBROMIDE 20 MG ORAL TABLET take 1 tab p o qday for depresion and anxiety. CITALOPRAM HYDROBROMIDE 20 MG ORAL TABLET 576220 CITALOPRAM HYDROBROMIDE Inactive PROZAC 10 MG ORAL CAPSULE Take 1 tab daily for 1 week. Then increase to 20mg daily. PROZAC 10 MG ORAL CAPSULE 586450 FLUOXETINE HCL Inactive ZANTAC 75 75 MG ORAL TABLET take 1 po BID ZANTAC 75 75 MG ORAL TABLET 453714 RANITIDINE HCL Inactive PREDNISONE 20 MG ORAL TABLET 2 tabs daily for 3 days, 1 tab daily for 3 days, 1/2 tab daily for 2 days PREDNISONE 20 MG ORAL T ABLET 616040 PREDNISONE Inactive ZITHROMAX 250 MG ORAL TABLET 2 po today, then 1 po q days 2-5 20 11/06/16 ZITHROMAX 250 MG ORAL TABLET 703353 AZITHROMYCIN [place] ctive ZITHROMAX 250 MG ORAL TABLET 2 po today, then 1 po q days 2-5 20 12/07/06 ZITHROMAX 250 MG ORAL TABLET 264453 AZITHROMYCIN A[place]ia ctive Immunizations Vaccine Administration Date [...] Value Unit Range Description Lab Report: Chlamydia/GC APTIMA/54137 - Lab chlamydia DNA probe NOT DETECTED NOT DETECTED Lab Report: Chlamydia/GC APTIMA/43722 - Microbiology Neisseria gonorrhoeae DNA probe NOT DETECTED NO T DETECTED Lab Report: Comp. Metabolic Panel - Chem istry sodium, serum 139 mmol/L 986-733 2839/09/06 carbon dioxide, venous blood 25.3 mmol/L 21.0-32 [...] 5.0-8.5 Encounters Code Encounter Date Provider Facility CPT-37357 Level 3 Est. Patient 10:07:39 PUBLIC RELATIONS PROFESSIONAL Cale morris [facility] [place] CPT-07683 Level 3 Est. Patient 11:35:37 PUBLIC RELATIONS PROFESSIONAL Cale morris [facility] CPT-49482 Level 4 Est. Patient 11:10:55 [facility] Level 4 Est. Patient 14:07:40 CDT Shannan And [facility] CPT-07519 Level 4 Est. Patient 13:54:09 CDT Adrián dyson MD [facility]-73278 Level 3 Est. Patient 09:22:14 CDT Adrián dyson MD [facility]-80839 Level 3 Est. Patient 08:59:31 CDT Adrián dyson MD [facility]-79315 Level 3 Est. Patient 11:58:31 CDT Adrián dyson MD [facility] CPT-78510 Level 3 Est. Patient 09:06:35 CDT Adrián dyson MD [facility]-63559 Level 3 Est. Patient 09:18:45 CDT Adrián dyson MD [facility]-19076 Level 3 Est. Patient 09:13:22 CDT Adrián dyson MD [facility]-40630 Level 3 Est. Patient 18:04:31 PUBLIC RELATIONS PROFESSIONAL Adrián dyson MD [facility]-77776 Level 4 Est. Patient 14:00:53 CDT Uriel bhatia [facility] CPT-11892 Level 3 Est. Patient 20:00:09 CDT Terry jenkins DO [facility]-93405 Level 3 Est. Patient 08:45:08 CDT Uriel bhatia [facility] CPT-59382 Level 3 Est. Patient 09:09:26 CDT Uriel bhatia [facility]-98056 Level 3 Est. Patient 16:32:31 CDT Adrián dyson MD [facility]-93246 Level 3 Est. Patient 09:35:27 PUBLIC RELATIONS PROFESSIONAL Norman fuentes [facility]-07119 Level 2 Est. Patient 16:51:37 PUBLIC RELATIONS PROFESSIONAL Adrián dyson MD [facility] CPT-62963 Level 3 Est. Patient 10:00:11 PUBLIC RELATIONS PROFESSIONAL Ace Arriaza MD [facility] Procedures Code Procedure Name Date Entry Date Standard Desc ription CPT-03705 First Vx - Ix admin via ID I M or jet injects without counseling by physician 14:18:02 CDT CPT-47921 Gardasil 9 Intramuscular Suspension 1 4:18:02 CDT CPT-J3420 Vitamin B12 1000mcg (Cyanocobalamin) 16:30:23 CDT CPT-06957 Abx/Therapy Injection 16:30:23 CDT CPT-J3420 Vitamin B12 1000mcg (Cyanocobalamin) 16:09:42 CDT CPT-20551 Abx/Therapy Injection 16:09:42 CDT CPT-J3420 Vitamin B12 1000mcg (Cyanocobalamin) 15:22:47 CDT CPT-57856 Abx/Therapy Injection 15:22:47 CDT CPT-J3420 Vitamin B12 1000mcg (Cyanocobalamin) 17:00:35 CDT CPT-74806 Abx/Therapy Injection 17:00:35 CDT CPT-56612 First Vx - Ix admin via ID I M or jet injects without counseling by physician 16:04:17 PUBLIC RELATIONS PROFESSIONAL CPT-26191 Gardasil 9 Intramuscular Suspension 1 6:04:17 PUBLIC RELATIONS PROFESSIONAL CPT-20115 Venipuncture Draw Fee 09:40:26 CDT CPT-97722 [place] [facility] - LAB USE ONLY 09:40:26 CDT 11/30 CPT-78420 CBC with Diff - LAB USE ONLY 09:40:26 CDT 2 CPT-02855 Addl Vx - Ix admin via ID IM or jet injects without counseling by physician 09:40:21 CDT CPT-23760 Menactra Intramuscular Injectable 09:40:21 CDT CPT-91918 Addl Vx - Ix admin via ID IM or jet injects without counseling by physician 09:40:21 CDT CPT-93075 Gardasil 9 Intramuscular Suspension 0 9:40:21 CDT CPT-81575 First Vx - Ix admin via ID I M or jet injects without counseling by physician 09:40:21 CDT CPT-10576 Havrix Intramuscular Suspension 720 EL U /0.5ML 09:40:21 CDT CPT-J2930 Solu Medrol 125 mg (Methyl Prednisolone Sodium Succinate) 09:43:26 CDT CPT-27518 Abx/Therapy Injection 09:43:26 CDT CPT-J2930 Solu Medrol 125 mg (Methyl Prednisolone Sodium Succinate) 09:05:55 CDT CPT-87869 Abx/Therapy Injection 09:05:55 CDT CPT-43730 Venipuncture Draw Fee 14:01:33 CDT CPT-30977 EKG Trac and Interp 11:22:04 CDT CPT-46797 Venipuncture Draw Fee 10:53:35 CDT CPT-J2930 Solu Medrol 125 mg (Methyl Prednisolone Sodium Succinate) 09:29:26 CDT CPT-52625 Abx/Therapy Injection 09:29:26 CDT CPT-Cryo Cryotherapy 16:51:37 PUBLIC RELATIONS PROFESSIONAL
--- OUTSIDE RECORDS SUMMARY | 2019-07-22 19:37 | XMS REPORT | Clinical Summary ---
[...] Q 6 HRS PRN HEADACHE TRAMADOL HCL 81401726394 Active Adrián Varghese MD Active CYANOCOBALAMIN 1000 MCG/ML INJ SOLN 1 injection weekly for 1 month, than 1 a month for 2 months. recheck lab CYANOCOBALAMIN 07377078307 Active Samreen Cristo Active CITALOPRAM HYDROBROMIDE 20 MG ORAL TABS take 1 tab po qday for depresion and anxiety. CITALOPRAM HYDROBROMIDE 49760951642 Active Adrián Varghese MD Active ULTRAM 50 MG TAB take 1 tab po q 6 hrs prn headache pain TRAMADOL HCL 78867686931 No Longer Active Adrián Varghese MD Acti ve CLINDAMYCIN PHOSPHATE 2 % CREA apply cream to acne BID prn 06/14 CLINDAMYCIN PHOSPHATE 79798338727 No Longer Active Adrián Joseph Active MINOCYCLINE HCL 100 MG CAPS take one po BID MINOCYCLINE HCL 10995879545 No Longer Active Adrián Varghese MD Acti ve TRI-SPRINTEC 0.18/0.215/0.25 MG-35 MCG TABS 1 po qd as directed 201 07/04/00 NORGESTIM-ETH ESTRAD TRIPHASIC 00830338918 Active Adrián Varghese MD Active ZITHROMAX 250 MG TAB 2 po today, then 1 po q days 2-5 AZITHROMYCIN 35868368052 No Longer Active Adrián Varghese MD Acti ve ZITHROMAX 250 MG TAB 2 po today, then 1 po q days 2-5 AZITHROMYCIN 37967601620 No Longer Active Adrián Varghese MD Acti ve PREDNISONE 20 MG TAB 2 tabs daily for 3 days, 1 t ab daily for 3 days, 1/2 tab daily for 2 days PREDNISONE 82545865514 No Longer Active Adrián Varghese MD Active ZANTAC 75 75 MG TABS take 1 po BID RANITIDINE H CL 78817585003 No Longer Active Uriel BOYD Active BENZACLIN 1-5 % GEL apply to skin BID prn for acne 201 05/05/14 CLINDAMYCIN PHOS-BENZOYL PEROX 38659521961 No Longer Active Uriel BOYD Active BENZACLIN 1-5 % GEL apply to skin BID prn for acne 201 05/05/14 BENZACLIN 1-5 % GEL 924321 CLINDAMYCIN PHOS-BENZOYL PEROX Inactive MINOCYCLINE HCL 100 MG CAPS take one po BID MINOCYCLINE HCL 100 MG CAPS 205624 MINOCYCLINE HCL Inactive CLINDAMYCIN PHOSPHATE 2 % CREA apply cream to acne BID prn 06/14 CLINDAMYCIN PHOSPHATE 2 % CREA 383306 CLINDAMYCIN PHOSP HATE Inactive ULTRAM 50 MG TAB take 1 tab po q 6 hrs prn headache pain ULTRAM 50 MG TAB 035822 TRAMADOL HCL Inactive ZANTAC 75 75 MG TABS take 1 po BID ZANTAC 75 75 MG TABS 074885 RANITIDINE HCL Inactive PREDNISONE 20 MG TAB 2 tabs daily for 3 days, 1 t ab daily for 3 days, 1/2 tab daily for 2 days PREDNISONE 20 MG TAB 087844 PREDNISON E Inactive ZITHROMAX 250 MG TAB 2 po today, then 1 po q days 2-5 ZITHROMAX 250 MG TAB 8928726 AZITHROMYCIN Inactive ZITHROMAX 250 MG TAB 2 po today, then 1 po q days 2-5 ZITHROMAX 250 MG TAB 7072952 AZITHROMYCIN Inactive Immunizations Vaccine Administration Date Value [...] 11 .6-14.8 platelet count 351 10^3/MM^3 10*3/mm3 533-138 0636/10/03 erythrocyte (RBC) count 4.58 10^6/MM^3 10*6/mm3 4.04-5.4 8 lymphocytes as percent of blood leukocytes 34.8 % 20.5-51.1 monocytes as percent of blood leukocytes 5.9 % 1.7-9.3 neutrophils as percent of blood leukocytes 57.2 % 42.2-75.2 leukocyte count, blood 5.9 10^3/MM^3 10*3/mm3 4.6-10.2 Encounters Code Encounter Date Provider Facility CPT-48591 Level 4 Est. Patient 13:54:09 CDT Adrián dyson MD [facility] CPT-43671 Level 3 Est. Patient 09:22:14 CDT Adrián dyson MD [facility]-36562 Level 3 Est. Patient 08:59:31 CDT Adrián dyson MD [facility]-79621 Level 3 Est. Patient 11:58:31 CDT Adrián dyson MD [facility] CPT-14708 Level 3 Est. Patient 09:06:35 CDT Adrián dyson MD [facility] CPT-91567 Level 3 Est. Patient 09:18:45 CDT Adrián dyson MD [facility] CPT-87273 Level 3 Est. Patient 09:13:22 CDT Adrián dyson MD [facility] CPT-28522 Level 3 Est. Patient 18:04:31 MARITIME GUARD Adrián dyson MD [facility] CPT-30370 Level 4 Est. Patient 14:00:53 CDT Uriel bhatia [facility] CPT-98616 Level 3 Est. Patient 20:00:09 CDT Terry jenkins DO [facility] CPT-20577 Level 3 Est. Patient 08:45:08 CDT Uriel bhatia [facility] CPT-67533 Level 3 Est. Patient 09:09:26 CDT Uriel Ramirezclarissa bhatia [facility] CPT-72642 Level 3 Est. Patient 16:32:31 CDT Adrián dyson MD [facility] CPT-41337 Level 3 Est. Patient 09:35:27 MARITIME GUARD Norman Aguilararnulfo BOYD [facility] CPT-65797 Level 2 Est. Patient 16:51:37 MARITIME GUARD Adrián dyson MD [facility] CPT-93255 Level 3 Est. Patient 10:00:11 MARITIME GUARD Ace Arriaza MD [facility] Procedures Code Procedure Name Date Entry Date Standard Desc ription CPT-J3420 Vitamin B12 1000mcg (Cyanocobalamin) 16:30:23 CDT CPT-49555 Abx/Therapy Injection 16:30:23 CDT CPT-J3420 Vitamin B12 1000mcg (Cyanocobalamin) 16:09:42 CDT CPT-12162 Abx/Therapy Injection 16:09:42 CDT CPT-J3420 Vitamin B12 1000mcg (Cyanocobalamin) 15:22:47 CDT CPT-11938 Abx/Therapy Injection 15:22:47 CDT CPT-J3420 Vitamin B12 1000mcg (Cyanocobalamin) 17:00:35 CDT CPT-03642 Abx/Therapy Injection 17:00:35 CDT CPT-03680 First Vx - Ix admin via ID I M or jet injects without counseling by physician 16:04:17 MARITIME GUARD CPT-80052 Gardasil 9 Intramuscular Suspension 1 6:04:17 MARITIME GUARD CPT-83327 Venipuncture Draw Fee 09:40:26 CDT CPT-11001 [place] [facility] - LAB USE ONLY 09:40:26 CDT 11/30 CPT-47007 CBC with Diff - LAB USE ONLY 09:40:26 CDT 2 CPT-37293 Addl Vx - Ix admin via ID IM or jet injects without counseling by physician 09:40:21 CDT CPT-25051 Menactra Intramuscular Injectable 09:40:21 CDT CPT-70950 Addl Vx - Ix admin via ID IM or jet injects without counseling by physician 09:40:21 CDT CPT-57279 Gardasil 9 Intramuscular Suspension 0 9:40:21 CDT CPT-69210 First Vx - Ix admin via ID I M or jet injects without counseling by physician 09:40:21 CDT CPT-28261 Havrix Intramuscular Suspension 720 EL U /0.5ML 09:40:21 CDT CPT-J2930 Solu Medrol 125 mg (Methyl Prednisolone Sodium Succinate) 09:43:26 CDT CPT-14070 Abx/Therapy Injection 09:43:26 CDT CPT-J2930 Solu Medrol 125 mg (Methyl Prednisolone Sodium Succinate) 09:05:55 CDT CPT-87244 Abx/Therapy Injection 09:05:55 CDT CPT-33115 Venipuncture Draw Fee 14:01:33 CDT CPT-13453 EKG Trac and Interp 11:22:04 CDT CPT-91034 Venipuncture Draw Fee 10:53:35 CDT CPT-J2930 Solu Medrol 125 mg (Methyl Prednisolone Sodium Succinate) 09:29:26 CDT CPT-17133 Abx/Therapy Injection 09:29:26 CDT CPT-Cryo Cryotherapy 16:51:37 MARITIME GUARD
--- OUTSIDE RECORDS SUMMARY | 2019-07-22 19:37 | XMS REPORT | Clinical Summary ---
Author Author Yovanny, Clarsia Christopher Organization [facility] Address Unknown Phone Unavailable Allergies, Adverse [...] increa se to 20mg daily. FLUOXETINE HCL 53741558711 No Longer Active Hubert WARD Active PROZAC 20 MG CAP Take 1 tab daily FLUOXETINE HCL 19890648301 Active Shannan Gibbs APRN Active BUSPIRONE HCL 7.5 MG ORAL TABS 1 pill twice daily, for anxiety 2016 BUSPIRONE HCL 41420729144 Active Shannan Gibbs APRN Active CITALOPRAM HYDROBROMIDE 20 MG ORAL TABS take 1 tab po qday for depresion and anxiety. CITALOPRAM HYDROBROMIDE 03186991189 No L onger Active Shannan Gibbs APRN Active CYANOCOBALAMIN 1000 MCG/ML INJ SOLN 1 injection weekly for 1 month, than 1 a month for 2 months. recheck lab CYANOCOBALAMIN 86596162979 No Longer Active Shannan Gibbs APRN Active ULTRAM 50 MG TAB 1 TAB PO Q 6 HRS PRN HEADACHE TRAMADOL HCL 02909415289 Active Adrián Varghese MD Active ULTRAM 50 MG TAB take 1 tab po q 6 hrs prn headache pain TRAMADOL HCL 40107065558 No Longer Active Adrián Varghese MD Acti ve CLINDAMYCIN PHOSPHATE 2 % CREA apply cream to acne BID prn 06/14 CLINDAMYCIN PHOSPHATE 65752038867 No Longer Active Adrián Joseph Active MINOCYCLINE HCL 100 MG CAPS take one po BID MINOCYCLINE HCL 76446205994 No Longer Active Adrián Varghese MD Acti ve TRI-SPRINTEC 0.18/0.215/0.25 MG-35 MCG TABS 1 po qd as directed 201 07/04/00 NORGESTIM-ETH ESTRAD TRIPHASIC 67422145708 Active Shannan Gibbs APRN Active ZITHROMAX 250 MG TAB 2 po today, then 1 po q days 2-5 AZITHROMYCIN 85819727404 No Longer Active Adrián Varghese MD Acti ve ZITHROMAX 250 MG TAB 2 po today, then 1 po q days 2-5 AZITHROMYCIN 96381339342 No Longer Active Adrián Varghese MD Acti ve PREDNISONE 20 MG TAB 2 tabs daily for 3 days, 1 t ab daily for 3 days, 1/2 tab daily for 2 days PREDNISONE 59270484458 No Longer Active Adrián Varghese MD Active ZANTAC 75 75 MG TABS take 1 po BID RANITIDINE H CL 72626141307 No Longer Active Uriel BOYD Active BENZACLIN 1-5 % GEL apply to skin BID prn for acne 201 05/05/14 CLINDAMYCIN PHOS-BENZOYL PEROX 59319250401 No Longer Active Uriel BOYD Active BENZACLIN 1-5 % GEL apply to skin BID prn for acne 201 05/05/14 BENZACLIN 1-5 % GEL 618961 CLINDAMYCIN PHOS-BENZOYL PEROX Inactive MINOCYCLINE HCL 100 MG CAPS take one po BID MINOCYCLINE HCL 100 MG CAPS 297724 MINOCYCLINE HCL Inactive CLINDAMYCIN PHOSPHATE 2 % CREA apply cream to acne BID prn 06/14 CLINDAMYCIN PHOSPHATE 2 % CREA 811903 CLINDAMYCIN PHOSP HATE Inactive ULTRAM 50 MG TAB take 1 tab po q 6 hrs prn headache pain ULTRAM 50 MG TAB 235425 TRAMADOL HCL Inactive CYANOCOBALAMIN 1000 MCG/ML INJ SOLN 1 injection weekly for 1 month, than 1 a month for 2 months. recheck lab CYANOCOB ALAMIN 1000 MCG/ML INJ SOLN 008671 CYANOCOBALAMIN Inactive CITALOPRAM HYDROBROMIDE 20 MG ORAL TABS take 1 tab po qday for depresion and anxiety. CITALOPRAM HYDROBROMIDE 20 MG ORAL TABS 2 38852 CITALOPRAM HYDROBROMIDE Inactive PROZAC 10 MG CAP Take 1 tab daily for 1 week. Then increa se to 20mg daily. PROZAC 10 MG CAP 770615 FLUOXETINE HCL Inactive ZANTAC 75 75 MG TABS take 1 po BID ZANTAC 75 75 MG TABS 278972 RANITIDINE HCL Inactive PREDNISONE 20 MG TAB 2 tabs daily for 3 days, 1 t ab daily for 3 days, 1/2 tab daily for 2 days PREDNISONE 20 MG TAB 625757 PREDNISON E Inactive ZITHROMAX 250 MG TAB 2 po today, then 1 po q days 2-5 ZITHROMAX 250 MG TAB 017249 AZITHROMYCIN Inactive ZITHROMAX 250 MG TAB 2 po today, then 1 po q days 2-5 ZITHROMAX 250 MG TAB 890200 AZITHROMYCIN Inactive Immunizations Vaccine Administration Date Value [...] Value Unit Range Description Lab Report: Chlamydia/GC APTIMA/36656 - Lab chlamydia DNA probe NOT DETECTED NOT DETECTED Lab Report: Chlamydia/GC APTIMA/43670 - Microbiology Neisseria gonorrhoeae DNA probe NOT DETECTED NO T DETECTED Lab Report: Comp. Metabolic Panel - Chem istry sodium, serum 139 mmol/L 247-279 6885/09/06 carbon dioxide, venous blood 25.3 mmol/L 21.0-32 [...] 5.0-8.5 Encounters Code Encounter Date Provider Facility CPT-88970 Level 3 Est. 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 Patient 11:10:55 CDT Hubert [facility]-57059 Level 4 Est. Patient 14:07:40 CDT Hubert [facility]-12535 Level 4 Est. Patient 13:54:09 CDT Adrián dyson MD [facility]-34526 Level 3 Est. Patient 09:22:14 CDT Adrián dyson MD [facility]-31790 Level 3 Est. Patient 08:59:31 CDT Adrián dyson MD [facility]-83479 Level 3 Est. Patient 11:58:31 CDT Adrián dyson MD [facility] CPT-12087 Level 3 Est. Patient 09:06:35 CDT Adrián dyson MD [facility] CPT-32908 Level 3 Est. Patient 09:18:45 CDT Adrián dyson MD [facility] CPT-74919 Level 3 Est. Patient 09:13:22 CDT Adrián dyson MD [facility] CPT-42732 Level 3 Est. Patient 18:04:31 ROAD MECHANIC Adrián dyson MD [facility] CPT-56217 Level 4 Est. Patient 14:00:53 CDT Uriel bhatia [facility] CPT-26075 Level 3 Est. Patient 20:00:09 CDT Terry jenkins DO [facility] CPT-04381 Level 3 Est. Patient 08:45:08 CDT Uriel bhatia [facility] CPT-49159 Level 3 Est. Patient 09:09:26 CDT [facility] CPT-52246 Level 3 Est. Patient 16:32:31 CDT Adrián dyson MD [facility] CPT-67223 Level 3 Est. Patient 09:35:27 ROAD MECHANIC Norman fuentes [facility] CPT-39967 Level 2 Est. Patient 16:51:37 RO[address] MECHANIC Adrián dyson MD [facility] CPT-93985 Level 3 Est. Patient 10:00:11 ROAD MECHANIC Ace Arriaza MD [facility] Procedures Code Procedure Name Date Entry Date Standard Desc ription CPT-05143 First Vx - Ix admin via ID I M or jet injects without counseling by physician 14:18:02 CDT CPT-81558 Gardasil 9 Intramuscular Suspension 1 4:18:02 CDT CPT-J3420 Vitamin B12 1000mcg (Cyanocobalamin) 16:30:23 CDT CPT-13938 Abx/Therapy Injection 16:30:23 CDT CPT-J3420 Vitamin B12 1000mcg (Cyanocobalamin) 16:09:42 CDT CPT-98518 Abx/Therapy Injection 16:09:42 CDT CPT-J3420 Vitamin B12 1000mcg (Cyanocobalamin) 15:22:47 CDT CPT-03812 Abx/Therapy Injection 15:22:47 CDT CPT-J3420 Vitamin B12 1000mcg (Cyanocobalamin) 17:00:35 CDT CPT-48295 Abx/Therapy Injection 17:00:35 CDT CPT-30204 First Vx - Ix admin via ID I M or jet injects without counseling by physician 16:04:17 ROAD MECHANIC CPT-38176 Gardasil 9 Intramuscular Suspension 1 6:04:17 ROAD MECHANIC CPT-45925 Venipuncture Draw Fee 09:40:26 CDT CPT-37001 [place] [facility] - LAB USE ONLY 09:40:26 CDT 11/30 CPT-97234 CBC with Diff - LAB USE ONLY 09:40:26 CDT 2 CPT-67365 Addl Vx - Ix admin via ID IM or jet injects without counseling by physician 09:40:21 CDT CPT-66620 Menactra Intramuscular Injectable 09:40:21 CDT CPT-87263 Addl Vx - Ix admin via ID IM or jet injects without counseling by physician 09:40:21 CDT CPT-59595 Gardasil 9 Intramuscular Suspension 0 9:40:21 CDT CPT-40925 First Vx - Ix admin via ID I M or jet injects without counseling by physician 09:40:21 CDT CPT-15290 Havrix Intramuscular Suspension 720 EL U /0.5ML 09:40:21 CDT CPT-J2930 Solu Medrol 125 mg (Methyl Prednisolone Sodium Succinate) 09:43:26 CDT CPT-24392 Abx/Therapy Injection 09:43:26 CDT CPT-J2930 Solu Medrol 125 mg (Methyl Prednisolone Sodium Succinate) 09:05:55 CDT CPT-71011 Abx/Therapy Injection 09:05:55 CDT CPT-76319 Venipuncture Draw Fee 14:01:33 CDT CPT-57329 EKG Trac and Interp 11:22:04 CDT CPT-27321 Venipuncture Draw Fee 10:53:35 CDT CPT-J2930 Solu Medrol 125 mg (Methyl Prednisolone Sodium Succinate) 09:29:26 CDT CPT-52219 Abx/Therapy Injection 09:29:26 CDT CPT-Cryo Cryotherapy 16:51:37 RO[address] MECHANIC
--- OUTSIDE RECORDS SUMMARY | 2019-07-22 19:37 | XMS REPORT | Clinical Summary ---
Author Author Yovanny, Clarisa Christopher Organization [facility] Address Unknown Phone Unavailable Allergies, Adverse Reactions, [...] Other B-complex deficiencies Pharyngitis-Acute ICD-462 Inactive Adrián laevitt MD Medication List Medication Instructions Start Date Stop Date Generic Name NDC Status Provider Patient Instruction ULTRAM 50 MG TAB 1 TAB PO Q 6 HRS PRN HEADACHE TRAMADOL HCL 24966951534 Active Adrián Varghese MD Active CYANOCOBALAMIN 1000 MCG/ML INJ SOLN 1 injection weekly for 1 month, than 1 a month for 2 months. recheck lab CYANOCOBALAMIN 71150571832 Active Samreen Cristo Active CITALOPRAM HYDROBROMIDE 20 MG ORAL TABS take 1 tab po qday for depresion and anxiety. CITALOPRAM HYDROBROMIDE 84444177757 Active Adrián Varghese MD Active ULTRAM 50 MG TAB take 1 tab po q 6 hrs prn headache pain TRAMADOL HCL 42419579004 No Longer Active Adrián Varghese MD Acti ve CLINDAMYCIN PHOSPHATE 2 % CREA apply cream to acne BID prn 06/14 CLINDAMYCIN PHOSPHATE 24821672206 No Longer Active Adrián Joseph Active MINOCYCLINE HCL 100 MG CAPS take one po BID MINOCYCLINE HCL 00238750223 No Longer Active Adrián Varghese MD Acti ve TRI-SPRINTEC 0.18/0.215/0.25 MG-35 MCG TABS 1 po qd as directed 201 07/04/00 NORGESTIM-ETH ESTRAD TRIPHASIC 84748546267 Active Adrián Varghese MD Active ZITHROMAX 250 MG TAB 2 po today, then 1 po q days 2-5 AZITHROMYCIN 57594943330 No Longer Active Adrián Varghese MD Acti ve ZITHROMAX 250 MG TAB 2 po today, then 1 po q days 2-5 AZITHROMYCIN 47432190872 No Longer Active Adrián Varghese MD Acti ve PREDNISONE 20 MG TAB 2 tabs daily for 3 days, 1 t ab daily for 3 days, 1/2 tab daily for 2 days PREDNISONE 42422388185 No Longer Active Adrián Varghese MD Active ZANTAC 75 75 MG TABS take 1 po BID RANITIDINE H CL 28931636080 No Longer Active Uriel BOYD Active BENZACLIN 1-5 % GEL apply to skin BID prn for acne 201 05/05/14 CLINDAMYCIN PHOS-BENZOYL PEROX 38975050872 No Longer Active Uriel BOYD Active BENZACLIN 1-5 % GEL apply to skin BID prn for acne 201 05/05/14 BENZACLIN 1-5 % GEL 248100 CLINDAMYCIN PHOS-BENZOYL PEROX Inactive MINOCYCLINE HCL 100 MG CAPS take one po BID MINOCYCLINE HCL 100 MG CAPS 594308 MINOCYCLINE HCL Inactive CLINDAMYCIN PHOSPHATE 2 % CREA apply cream to acne BID prn 06/14 CLINDAMYCIN PHOSPHATE 2 % CREA 164239 CLINDAMYCIN PHOSP HATE Inactive ULTRAM 50 MG TAB take 1 tab po q 6 hrs prn headache pain ULTRAM 50 MG TAB 993295 TRAMADOL HCL Inactive ZANTAC 75 75 MG TABS take 1 po BID ZANTAC 75 75 MG TABS 523567 RANITIDINE HCL Inactive PREDNISONE 20 MG TAB 2 tabs daily for 3 days, 1 t ab daily for 3 days, 1/2 tab daily for 2 days PREDNISONE 20 MG TAB 717254 PREDNISON E Inactive ZITHROMAX 250 MG TAB 2 po today, then 1 po q days 2-5 ZITHROMAX 250 MG TAB 1005643 AZITHROMYCIN Inactive ZITHROMAX 250 MG TAB 2 po today, then 1 po q days 2-5 ZITHROMAX 250 MG TAB 9011764 AZITHROMYCIN Inactive Immunizations Vaccine Administration Date Value [...] 142-424 Encounters Code Encounter Date Provider Facility CPT-05117 Level 4 Est. Patient 13:54:09 CDT Adrián dyson MD [facility] CPT-94609 Level 3 Est. Patient 09:22:14 CDT Adrián dyson MD [facility]-82192 Level 3 Est. Patient 08:59:31 CDT Adrián dyson MD [facility]-06175 Level 3 Est. Patient 11:58:31 CDT Adrián dyson MD [facility] CPT-51121 Level 3 Est. Patient 09:06:35 CDT Adrián dyson MD [facility] CPT-19220 Level 3 Est. Patient 09:18:45 CDT Adrián dyson MD [facility] CPT-70139 Level 3 Est. Patient 09:13:22 CDT Adrián dyson MD [facility] CPT-50854 Level 3 Est. 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 Patient 14:00:53 CDT Uriel bhatia [facility] CPT-14629 Level 3 Est. Patient 20:00:09 CDT Terry jenkins DO [facility] CPT-01066 Level 3 Est. Patient 08:45:08 CDT Uriel bahtia [facility] CPT-14084 Level 3 Est. Patient 09:09:26 CDT Uriel bhatia [facility] CPT-25982 Level 3 Est. Patient 16:32:31 CDT Adrián dyson MD [facility] CPT-60564 Level 3 Est. 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 Patient 10:00:11 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 Ace Arriaza MD [facility] Procedures Code Procedure Name Date Entry Date Standard Desc ription CPT-J3420 Vitamin B12 1000mcg (Cyanocobalamin) 16:09:42 CDT CPT-63338 Abx/Therapy Injection 16:09:42 CDT CPT-J3420 Vitamin B12 1000mcg (Cyanocobalamin) 15:22:47 CDT CPT-22506 Abx/Therapy Injection 15:22:47 CDT CPT-J3420 Vitamin B12 1000mcg (Cyanocobalamin) 17:00:35 CDT CPT-39998 Abx/Therapy Injection 17:00:35 CDT CPT-04261 First Vx - Ix admin via ID I M or jet injects without counseling by physician 16:04:17 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 CPT-49020 Gardasil 9 Intramuscular Suspension 1 6:04:17 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 CPT-38463 Venipuncture Draw Fee 09:40:26 CDT CPT-35492 [place] [facility] - LAB USE ONLY 09:40:26 CDT 11/30 CPT-55339 CBC with Diff - LAB USE ONLY 09:40:26 CDT 2 CPT-43462 Addl Vx - Ix admin via ID IM or jet injects without counseling by physician 09:40:21 CDT CPT-42141 Menactra Intramuscular Injectable 09:40:21 CDT CPT-73391 Addl Vx - Ix admin via ID IM or jet injects without counseling by physician 09:40:21 CDT CPT-92110 Gardasil 9 Intramuscular Suspension 0 9:40:21 CDT CPT-86626 First Vx - Ix admin via ID I M or jet injects without counseling by physician 09:40:21 CDT CPT-91434 Havrix Intramuscular Suspension 720 EL U /0.5ML 09:40:21 CDT CPT-J2930 Solu Medrol 125 mg (Methyl Prednisolone Sodium Succinate) 09:43:26 CDT CPT-52443 Abx/Therapy Injection 09:43:26 CDT CPT-J2930 Solu Medrol 125 mg (Methyl Prednisolone Sodium Succinate) 09:05:55 CDT CPT-17909 Abx/Therapy Injection 09:05:55 CDT CPT-86343 Venipuncture Draw Fee 14:01:33 CDT CPT-39018 EKG Trac and Interp 11:22:04 CDT CPT-01408 Venipuncture Draw Fee 10:53:35 CDT CPT-J2930 Solu Medrol 125 mg (Methyl Prednisolone Sodium Succinate) 09:29:26 CDT CPT-25899 Abx/Therapy Injection 09:29:26 CDT CPT-Cryo Cryotherapy 16:51:37 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
--- OUTSIDE RECORDS SUMMARY | 2019-07-22 19:37 | XMS REPORT | Clinical Summary ---
Author Author Yovanny, Clarisa Christopher Organization [facility] Address Unknown Phone Unavailable Allergies, Adverse Reactions, [...] to acne BID prn 06/14 CLINDAMYCIN PHOSPHATE 68473113880 No Longer Active Adrián Joseph Active MINOCYCLINE HCL 100 MG CAPS take one po BID MINOCYCLINE HCL 65153881057 No Longer Active Adrián Varghese MD Acti ve TRI-SPRINTEC 0.18/0.215/0.25 MG-35 MCG TABS 1 po qd as directed 201 07/04/00 NORGESTIM-ETH ESTRAD TRIPHASIC 25705629975 Active Adrián Varghese MD Active ZITHROMAX 250 MG TAB 2 po today, then 1 po q days 2-5 AZITHROMYCIN 79789819710 No Longer Active Adrián Varghese MD Acti ve ULTRAM 50 MG TAB take 1 tab po q 6 hrs prn headache pain TRAMADOL HCL 74441027432 Active Adrián Varghese MD Active ZITHROMAX 250 MG TAB 2 po today, then 1 po q days 2-5 AZITHROMYCIN 93174727427 No Longer Active Adrián Varghese MD Acti ve PREDNISONE 20 MG TAB 2 tabs daily for 3 days, 1 t ab daily for 3 days, 1/2 tab daily for 2 days PREDNISONE 20692265757 No Longer Active Adrián Varghese MD Active ZANTAC 75 75 MG TABS take 1 po BID RANITIDINE H CL 77296035059 No Longer Active Uriel BOYD Active BENZACLIN 1-5 % GEL apply to skin BID prn for acne 201 05/05/14 CLINDAMYCIN PHOS-BENZOYL PEROX 65616637938 No Longer Active Uriel BOYD Active BENZACLIN 1-5 % GEL apply to skin BID prn for acne 201 05/05/14 BENZACLIN 1-5 % GEL 328290 CLINDAMYCIN PHOS-BENZOYL PEROX Inactive MINOCYCLINE HCL 100 MG CAPS take one po BID MINOCYCLINE HCL 100 MG CAPS 608555 MINOCYCLINE HCL Inactive CLINDAMYCIN PHOSPHATE 2 % CREA apply cream to acne BID prn 06/14 CLINDAMYCIN PHOSPHATE 2 % CREA 953004 CLINDAMYCIN PHOSP HATE Inactive ZANTAC 75 75 MG TABS take 1 po BID ZANTAC 75 75 MG TABS 227453 RANITIDINE HCL Inactive PREDNISONE 20 MG TAB 2 tabs daily for 3 days, 1 t ab daily for 3 days, 1/2 tab daily for 2 days PREDNISONE 20 MG TAB 394951 PREDNISON E Inactive ZITHROMAX 250 MG TAB 2 po today, then 1 po q days 2-5 ZITHROMAX 250 MG TAB 6572404 AZITHROMYCIN Inactive ZITHROMAX 250 MG TAB 2 po today, then 1 po q days 2-5 ZITHROMAX 250 MG TAB 3531413 AZITHROMYCIN Inactive Immunizations Vaccine Administration Date Value [...] 142-424 Encounters Code Encounter Date Provider Facility CPT-76919 Level 3 Est. Patient 09:22:14 CDT Adrián dyson MD [facility] CPT-54165 Level 3 Est. Patient 08:59:31 CDT Adrián dyson MD [facility] CPT-43208 Level 3 Est. Patient 11:58:31 CDT Adrián dyson MD [facility] CPT-18517 Level 3 Est. Patient 09:06:35 CDT Adrián dyson MD [facility] CPT-23151 Level 3 Est. Patient 09:18:45 CDT Adrián dyson MD [facility] CPT-26226 Level 3 Est. Patient 09:13:22 CDT Adrián dyson MD [facility] CPT-32143 Level 3 Est. 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 Patient 14:00:53 CDT Uriel bhatia [facility] CPT-67494 Level 3 Est. Patient 20:00:09 CDT Terry jenkins DO [facility] CPT-75780 Level 3 Est. Patient 08:45:08 CDT Uriel bhatia [facility] CPT-92359 Level 3 Est. Patient 09:09:26 CDT Uriel bahtia [facility] CPT-64999 Level 3 Est. Patient 16:32:31 CDT Adrián dyson MD [facility] CPT-19636 Level 3 Est. Patient 09:35:27 COMM[employer] HE[employer] Norman fuentes [facility] CPT-53200 Level 2 Est. Patient 16:51:37 [employer] Adrián dyson MD [facility] CPT-86279 Level 3 Est. Patient 10:00:11 [employer] Ace Arriaza MD [facility] Procedures Code Procedure Name Date Entry Date Standard Desc ription CPT-44881 First Vx - Ix admin via ID I M or jet injects without counseling by physician 16:04:17 [employer] CPT-79749 Gardasil 9 Intramuscular Suspension 1 6:04:17 COMM[employer]ITY [employer] CPT-73140 Venipuncture Draw Fee 09:40:26 CDT CPT-42778 [place] [facility] - LAB USE ONLY 09:40:26 CDT 11/30 CPT-50604 CBC with Diff - LAB USE ONLY 09:40:26 CDT 2 CPT-33204 Addl Vx - Ix admin via ID IM or jet injects without counseling by physician 09:40:21 CDT CPT-71183 Menactra Intramuscular Injectable 09:40:21 CDT CPT-71811 Addl Vx - Ix admin via ID IM or jet injects without counseling by physician 09:40:21 CDT CPT-17711 Gardasil 9 Intramuscular Suspension 0 9:40:21 CDT CPT-92565 First Vx - Ix admin via ID I M or jet injects without counseling by physician 09:40:21 CDT CPT-60137 Havrix Intramuscular Suspension 720 EL U /0.5ML 09:40:21 CDT CPT-J2930 Solu Medrol 125 mg (Methyl Prednisolone Sodium Succinate) 09:43:26 CDT CPT-43283 Abx/Therapy Injection 09:43:26 CDT CPT-J2930 Solu Medrol 125 mg (Methyl Prednisolone Sodium Succinate) 09:05:55 CDT CPT-97411 Abx/Therapy Injection 09:05:55 CDT CPT-05158 Venipuncture Draw Fee 14:01:33 CDT CPT-58898 EKG Trac and Interp 11:22:04 CDT CPT-29315 Venipuncture Draw Fee 10:53:35 CDT CPT-J2930 Solu Medrol 125 mg (Methyl Prednisolone Sodium Succinate) 09:29:26 CDT CPT-25403 Abx/Therapy Injection 09:29:26 CDT CPT-Cryo Cryotherapy 16:51:37 [employer]
--- OUTSIDE RECORDS SUMMARY | 2019-07-22 19:37 | XMS REPORT | Clinical Summary ---
[...] Instructions Start Date Stop Date Generic Name [facility] Status Provider Patient Instruction CITALOPRAM HYDROBROMIDE 20 MG ORAL TABS take 1 tab po qday for depresion and anxiety. CITALOPRAM HYDROBROMIDE 92249048875 Active Adrián Varghese MD Active ULTRAM 50 MG TAB take 1 tab po q 6 hrs prn headache pain TRAMADOL HCL 40243092833 No Longer Active Adrián Varghese MD Acti ve CLINDAMYCIN PHOSPHATE 2 % CREA apply cream to acne BID prn 06/14 CLINDAMYCIN PHOSPHATE 57340972754 No Longer Active Adrián Joseph Active MINOCYCLINE HCL 100 MG CAPS take one po BID MINOCYCLINE HCL 20952992592 No Longer Active Adrián Varghese MD Acti ve TRI-SPRINTEC 0.18/0.215/0.25 MG-35 MCG TABS 1 po qd as directed 201 07/04/00 NORGESTIM-ETH ESTRAD TRIPHASIC 35113188337 Active Adrián Varghese MD Active ZITHROMAX 250 MG TAB 2 po today, then 1 po q days 2-5 AZITHROMYCIN 15276554110 No Longer Active Adrián Varghese MD Acti ve ZITHROMAX 250 MG TAB 2 po today, then 1 po q days 2-5 AZITHROMYCIN 77232186187 No Longer Active Adrián Varghese MD Acti ve PREDNISONE 20 MG TAB 2 tabs daily for 3 days, 1 t ab daily for 3 days, 1/2 tab daily for 2 days PREDNISONE 59358983614 No Longer Active Adrián Varghese MD Active ZANTAC 75 75 MG TABS take 1 po BID RANITIDINE H CL 53100836000 No Longer Active Uriel BOYD Active BENZACLIN 1-5 % GEL apply to skin BID prn for acne 201 05/05/14 CLINDAMYCIN PHOS-BENZOYL PEROX 22777551081 No Longer Active Uriel BOYD Active BENZACLIN 1-5 % GEL apply to skin BID prn for acne 201 05/05/14 BENZACLIN 1-5 % GEL 721360 CLINDAMYCIN PHOS-BENZOYL PEROX Inactive MINOCYCLINE HCL 100 MG CAPS take one po BID MINOCYCLINE HCL 100 MG CAPS 198990 MINOCYCLINE HCL Inactive CLINDAMYCIN PHOSPHATE 2 % CREA apply cream to acne BID prn 06/14 CLINDAMYCIN PHOSPHATE 2 % CREA 198958 CLINDAMYCIN PHOSP HATE Inactive ULTRAM 50 MG TAB take 1 tab po q 6 hrs prn headache pain ULTRAM 50 MG TAB 755642 TRAMADOL HCL Inactive ZANTAC 75 75 MG TABS take 1 po BID ZANTAC 75 75 MG TABS 369402 RANITIDINE HCL Inactive PREDNISONE 20 MG TAB 2 tabs daily for 3 days, 1 t ab daily for 3 days, 1/2 tab daily for 2 days PREDNISONE 20 MG TAB 234256 PREDNISON E Inactive ZITHROMAX 250 MG TAB 2 po today, then 1 po q days 2-5 ZITHROMAX 250 MG TAB 1047378 AZITHROMYCIN Inactive ZITHROMAX 250 MG TAB 2 po today, then 1 po q days 2-5 ZITHROMAX 250 MG TAB 2809209 AZITHROMYCIN Inactive Immunizations Vaccine Administration Date Value [...] 142-424 Encounters Code Encounter Date Provider Facility CPT-11668 Level 4 Est. Patient 13:54:09 CDT Adrián dyson MD -04524 Level 3 Est. Patient 09:22:14 CDT Adrián dyson MD -34671 Level 3 Est. Patient 08:59:31 CDT Adrián dyson MD -84120 Level 3 Est. Patient 11:58:31 CDT Adrián dyson MD [facility]-33135 Level 3 Est. Patient 09:06:35 CDT Adrián dyson MD [facility]-78550 Level 3 Est. Patient 09:18:45 CDT Adrián dyson MD [facility]-06799 Level 3 Est. Patient 09:13:22 CDT Adrián dyson MD [facility]-88590 Level 3 Est. 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 Patient 14:00:53 CDT Uriel bhatia [facility]-78552 Level 3 Est. Patient 20:00:09 CDT Terry jenkins DO -18845 Level 3 Est. Patient 08:45:08 CDT Uriel bhatia [facility]-53879 Level 3 Est. Patient 09:09:26 CDT Uriel bhatia [facility]-59184 Level 3 Est. Patient 16:32:31 CDT Adrián dyson MD [facility]-30790 Level 3 Est. Patient 09:35:27 CLAIMS ADJUDICATOR Norman fuentes [facility]-58068 Level 2 Est. Patient 16:51:37 CLAIMS ADJUDICATOR Adrián dyson MD [facility] CPT-25000 Level 3 Est. Patient 10:00:11 CLAIMS ADJUDICATOR Ace Arriaza MD [facility] Procedures Code Procedure Name Date Entry Date Standard Desc ription CPT-79772 First Vx - Ix admin via ID I M or jet injects without counseling by physician 16:04:17 CLAIMS ADJUDICATOR CPT-25864 Gardasil 9 Intramuscular Suspension 1 6:04:17 CLAIMS ADJUDICATOR CPT-92157 Venipuncture Draw Fee 09:40:26 CDT CPT-28128 [place] [facility] - LAB USE ONLY 09:40:26 CDT 11/30 CPT-78784 CBC with Diff - LAB USE ONLY 09:40:26 CDT 2 CPT-42398 Addl Vx - Ix admin via ID IM or jet injects without counseling by physician 09:40:21 CDT CPT-18207 Menactra Intramuscular Injectable 09:40:21 CDT CPT-06227 Addl Vx - Ix admin via ID IM or jet injects without counseling by physician 09:40:21 CDT CPT-71823 Gardasil 9 Intramuscular Suspension 0 9:40:21 CDT CPT-98724 First Vx - Ix admin via ID I M or jet injects without counseling by physician 09:40:21 CDT CPT-10786 Havrix Intramuscular Suspension 720 EL U /0.5ML 09:40:21 CDT CPT-J2930 Solu Medrol 125 mg (Methyl Prednisolone Sodium Succinate) 09:43:26 CDT CPT-19363 Abx/Therapy Injection 09:43:26 CDT CPT-J2930 Solu Medrol 125 mg (Methyl Prednisolone Sodium Succinate) 09:05:55 CDT CPT-65858 Abx/Therapy Injection 09:05:55 CDT CPT-95149 Venipuncture Draw Fee 14:01:33 CDT CPT-03460 EKG Trac and Interp 11:22:04 CDT CPT-87634 Venipuncture Draw Fee 10:53:35 CDT CPT-J2930 Solu Medrol 125 mg (Methyl Prednisolone Sodium Succinate) 09:29:26 CDT CPT-08530 Abx/Therapy Injection 09:29:26 CDT CPT-Cryo Cryotherapy 16:51:37 CLAIMS ADJUDICATOR
--- OUTSIDE RECORDS SUMMARY | 2019-07-22 19:38 | XMS REPORT | Clinical Summary ---
Author Author Yovanny, Clarisa Christopher Organization [facility] Address Unknown Phone Unavailable Allergies, Adverse Reactions, Alerts Allergy Name Reaction Description Start Date Severity Status Pr ovider BENZACLIN Critical Active Uirel BOYD Conditions or Problems Problem Name Problem [...] Then increase to 20mg daily. FLUOXETINE HCL 42549681138 No Longer Active Yulissa Gibbs APRN Active PROZAC 20 MG ORAL CAPSULE Take 1 tab daily FLUO XETINE HCL 32626618167 Active Shannan Gibbs APRN Active BUSPIRONE HCL 7.5 MG ORAL TABLET 1 pill twice daily, for anxiety 20 14/11/05 BUSPIRONE HCL 09960069767 Active Shannan Gibbs APRN Active CITALOPRAM HYDROBROMIDE 20 MG ORAL TABLET take 1 tab p o qday for depresion and anxiety. CITALOPRAM HYDROBROMIDE 11973125361 No L onger Active Shannan Gibbs APRN Active CYANOCOBALAMIN 1000 MCG/ML INJECTION SOLUTION 1 inject ion weekly for 1 month, than 1 a month for 2 months. recheck lab CYANOCO BALAMIN 03839293125 No Longer Active Shannan Gibbs SELF PAY SPECIALIST Active ULTRAM 50 MG ORAL TABLET 1 TAB PO Q 6 HRS PRN HEADACHE TRAMADOL HCL 54018401776 Active Adrián Varghese MD Active ULTRAM 50 MG ORAL TABLET take 1 tab po q 6 hrs prn headache pain TRAMADOL HCL 72806690445 No Longer Active Adrián Varghese MD Active CLINDAMYCIN PHOSPHATE 2 % VAGINAL CREAM apply cream to acne BID prn CLINDAMYCIN PHOSPHATE 48088581603 No Longer Active Adrián dyson MD Active MINOCYCLINE HCL 100 MG ORAL CAPSULE take one po BID 13/11/25 MINOCYCLINE HCL 07243430741 No Longer Active Adrián Varghese MD A ctive TRI-SPRINTEC 0.18/0.215/0.25 MG-35 MCG ORAL TABLET 1 po qd a s directed NORGESTIM-ETH ESTRAD TRIPHASIC 53697074776 Active Adrián Varghese MD Active ZITHROMAX 250 MG ORAL TABLET 2 po today, then 1 po q days 2-5 20 12/07/06 AZITHROMYCIN 83399543008 No Longer Active Adrián Varghese MD Active ZITHROMAX 250 MG ORAL TABLET 2 po today, then 1 po q days 2-5 20 11/06/16 AZITHROMYCIN 99250195861 No Longer Active Adrián Varghese MD Active PREDNISONE 20 MG ORAL TABLET 2 tabs daily for 3 days, 1 tab daily for 3 days, 1/2 tab daily for 2 days PREDNISONE 65080336257 No Longer Active Adrián Varghese MD Active ZANTAC 75 75 MG ORAL TABLET take 1 po BID RANIT IDINE HCL 51442851963 No Longer Active Uriel BOYD Active BENZACLIN 1-5 % EXTERNAL GEL apply to skin BID prn for acne 2012 CLINDAMYCIN PHOS-BENZOYL PEROX 12520334337 No Longer Active Uriel BOYD Active CYANOCOBALAMIN 1000 MCG/ML INJECTION SOLUTION 1 inject ion weekly for 1 month, than 1 a month for 2 months. recheck lab CYANOCOBALAMIN 1000 MCG/ML INJECTION SOLUTION 114264 CYANOCOBALAMIN Inactive MINOCYCLINE HCL 100 MG ORAL CAPSULE take one po BID 13/11/25 MINOCYCLINE HCL 100 MG ORAL CAPSULE 921615 MINOCYCLINE HCL Inac tive PREDNISONE 20 MG ORAL TABLET 2 tabs daily for 3 days, 1 tab daily for 3 days, 1/2 tab daily for 2 days PREDNISONE 20 MG ORAL T ABLET 913074 PREDNISONE Inactive PROZAC 10 MG ORAL CAPSULE Take 1 tab daily for 1 week. Then increase to 20mg daily. PROZAC 10 MG ORAL CAPSULE 001197 FLUOXETINE HCL Inactive CLINDAMYCIN PHOSPHATE 2 % VAGINAL CREAM apply cream to acne BID prn CLINDAMYCIN PHOSPHATE 2 % VAGINAL CREAM 458737 CLINDAMY ANGELIA PHOSPHATE Inactive ULTRAM 50 MG ORAL TABLET take 1 tab po q 6 hrs prn headache pain ULTRAM 50 MG ORAL TABLET 133595 TRAMADOL HCL Inactiv e ZANTAC 75 75 MG ORAL TABLET take 1 po BID ZANTAC 75 75 MG ORAL TABLET 686396 RANITIDINE HCL Inactive ZITHROMAX 250 MG ORAL TABLET 2 po today, then 1 po q days 2-5 20 11/06/16 ZITHROMAX 250 MG ORAL TABLET 116779 AZITHROMYCIN [place] ctive ZITHROMAX 250 MG ORAL TABLET 2 po today, then 1 po q days 2-5 20 12/07/06 ZITHROMAX 250 MG ORAL TABLET 059379 AZITHROMYCIN [place] ctive CITALOPRAM HYDROBROMIDE 20 MG ORAL TABLET take 1 tab p o qday for depresion and anxiety. CITALOPRAM HYDROBROMIDE 20 MG ORAL TABLET 515096 CITALOPRAM HYDROBROMIDE Inactive BENZACLIN 1-5 % EXTERNAL GEL apply to skin BID prn for acne 2012 BENZACLIN 1-5 % EXTERNAL GEL 983546 CLINDAMYCIN PHOS-BE NZOYL PEROX Inactive Immunizations Vaccine Administration Date Value Standard [...] Value Unit Range Description Lab Report: Chlamydia/GC APTIMA/35464 - Lab chlamydia DNA probe NOT DETECTED NOT DETECTED Lab Report: Chlamydia/GC APTIMA/91443 - Microbiology Neisseria gonorrhoeae DNA probe NOT DETECTED NO T DETECTED Lab Report: Comp. Metabolic Panel - Chem istry sodium, serum 141 mmol/L 711-865 0953/11/22 carbon dioxide, venous blood 25.2 mmol/L 21.0-32 .0 potassium, serum 3.8 mmol/L 3.5-5.2 chloride, serum 104 mmol/L 98-107 blood glucose 95 mg/dL 65-110 urea nitrogen, blood 15 mg/dL 7-18 creatinine, serum 0.79 mg/dL 0.60-1.30 alanine aminotransferase (SGPT), serum 28 U/L 10-55 aspartate aminotransferase (SGOT), serum 17 U/L 15-45 calcium, serum 8.9 mg/dL 8.5-10.1 bilirubin, serum, total 0.30 mg/dL 0.20-1.00 sodium, serum 139 mmol/L 974-239 5503/09/06 carbon dioxide, venous blood 25.3 mmol/L 21.0-32 [...] 5.0-8.5 Encounters Code Encounter Date Provider Facility [facility]-[id number] Level 3 Est. Patient 10:07:39 SOURCING MANAGER Cale morris [facility]00164 Level 3 Est. Patient 11:35:37 SOURCING MANAGER Cale morris [facility]-55435 Level 4 Est. Patient 11:10:55 CDT Shannan Lazcano [facility]-18168 Level 4 Est. Patient 14:07:40 [facility]T [facility]-78930 Level 4 Est. Patient 13:54:09 CDT Adrián dyson MD [facility]53982 Level 3 Est. Patient 09:22:14 CDT Adrián dyson MD [facility]58053 Level 3 Est. Patient 08:59:31 CDT Adrián dyson MD [facility]47764 Level 3 Est. Patient 11:58:31 CDT Adrián dyson MD [facility]-69071 Level 3 Est. Patient 09:06:35 CDT Adrián dyson MD [facility]-38066 Level 3 Est. Patient 09:18:45 CDT Adrián dyson MD [facility]-77191 Level 3 Est. Patient 09:13:22 CDT Adrián dyson MD [facility]-34162 Level 3 Est. Patient 18:04:31 SOURCING MANAGER Adrián dyson MD [facility]-56933 Level 4 Est. Patient 14:00:53 CDT Uriel bhatia [facility] CPT-61964 Level 3 Est. Patient 20:00:09 CDT Terry Elisha Sachin jenkins DO [facility] CPT-58896 Level 3 Est. Patient 08:45:08 CDT Uriel bhatia [facility] CPT-86903 Level 3 Est. Patient 09:09:26 CDT Uriel bhatia [facility] CPT-15394 Level 3 Est. Patient 16:32:31 CDT Adrián dyson MD [facility] CPT-44605 Level 3 Est. Patient 09:35:27 SOURCING MANAGER Norman fuentes [facility] CPT-60069 Level 2 Est. Patient 16:51:37 SOURCING MANAGER Adrián dyson MD [facility] CPT-21699 Level 3 Est. Patient 10:00:11 SOURCING MANAGER Ace Arriaza MD [facility] Procedures Code Procedure Name Date Entry Date Standard Desc ription CPT-84340 First Vx - Ix admin via ID I M or jet injects without counseling by physician 14:18:02 CDT CPT-82322 Gardasil 9 Intramuscular Suspension 1 4:18:02 CDT CPT-J3420 Vitamin B12 1000mcg (Cyanocobalamin) 16:30:23 CDT CPT-71407 Abx/Therapy Injection 16:30:23 CDT CPT-J3420 Vitamin B12 1000mcg (Cyanocobalamin) 16:09:42 CDT CPT-53493 Abx/Therapy Injection 16:09:42 CDT CPT-J3420 Vitamin B12 1000mcg (Cyanocobalamin) 15:22:47 CDT CPT-74698 Abx/Therapy Injection 15:22:47 CDT CPT-J3420 Vitamin B12 1000mcg (Cyanocobalamin) 17:00:35 CDT CPT-63603 Abx/Therapy Injection 17:00:35 CDT CPT-90509 First Vx - Ix admin via ID I M or jet injects without counseling by physician 16:04:17 SOURCING MANAGER CPT-38956 Gardasil 9 Intramuscular Suspension 1 6:04:17 SOURCING MANAGER CPT-77858 Venipuncture Draw Fee 09:40:26 CDT CPT-28021 [place] [facility] - LAB USE ONLY 09:40:26 CDT 11/30 CPT-85323 CBC with Diff - LAB USE ONLY 09:40:26 CDT 2 CPT-87372 Addl Vx - Ix admin via ID IM or jet injects without counseling by physician 09:40:21 CDT CPT-85129 Menactra Intramuscular Injectable 09:40:21 CDT CPT-40988 Addl Vx - Ix admin via ID IM or jet injects without counseling by physician 09:40:21 CDT CPT-77612 Gardasil 9 Intramuscular Suspension 0 9:40:21 CDT CPT-89656 First Vx - Ix admin via ID I M or jet injects without counseling by physician 09:40:21 CDT CPT-88245 Havrix Intramuscular Suspension 720 EL U /0.5ML 09:40:21 CDT CPT-J2930 Solu Medrol 125 mg (Methyl Prednisolone Sodium Succinate) 09:43:26 CDT CPT-57732 Abx/Therapy Injection 09:43:26 CDT CPT-J2930 Solu Medrol 125 mg (Methyl Prednisolone Sodium Succinate) 09:05:55 CDT CPT-58932 Abx/Therapy Injection 09:05:55 CDT CPT-46448 Venipuncture Draw Fee 14:01:33 CDT CPT-23913 EKG Trac and Interp 11:22:04 CDT CPT-73075 Venipuncture Draw Fee 10:53:35 CDT CPT-J2930 Solu Medrol 125 mg (Methyl Prednisolone Sodium Succinate) 09:29:26 CDT CPT-83762 Abx/Therapy Injection 09:29:26 CDT CPT-Cryo Cryotherapy 16:51:37 SOURCING MANAGER
--- OUTSIDE RECORDS SUMMARY | 2019-07-22 19:38 | XMS REPORT | Clinical Summary ---
Author Author Yovanny, Clarisa Christopher Organization [facility] Address Unknown Phone Unavailable Allergies, Adverse Reactions, [...] Q 6 HRS PRN HEADACHE TRAMADOL HCL 84823459457 Active Adrián Varghese MD Active CYANOCOBALAMIN 1000 MCG/ML INJ SOLN 1 injection weekly for 1 month, than 1 a month for 2 months. recheck lab CYANOCOBALAMIN 10387114256 Active Samreen Cristo Active CITALOPRAM HYDROBROMIDE 20 MG ORAL TABS take 1 tab po qday for depresion and anxiety. CITALOPRAM HYDROBROMIDE 26885477901 Active Adrián Varghese MD Active ULTRAM 50 MG TAB take 1 tab po q 6 hrs prn headache pain TRAMADOL HCL 89470487717 No Longer Active Adrián Varghese MD Acti ve CLINDAMYCIN PHOSPHATE 2 % CREA apply cream to acne BID prn 06/14 CLINDAMYCIN PHOSPHATE 55818447496 No Longer Active Adrián Joseph Active MINOCYCLINE HCL 100 MG CAPS take one po BID MINOCYCLINE HCL 70594584402 No Longer Active Adrián Varghese MD Acti ve TRI-SPRINTEC 0.18/0.215/0.25 MG-35 MCG TABS 1 po qd as directed 201 07/04/00 NORGESTIM-ETH ESTRAD TRIPHASIC 09830001684 Active Adrián Varghese MD Active ZITHROMAX 250 MG TAB 2 po today, then 1 po q days 2-5 AZITHROMYCIN 11869021674 No Longer Active Adrián Varghese MD Acti ve ZITHROMAX 250 MG TAB 2 po today, then 1 po q days 2-5 AZITHROMYCIN 03678483101 No Longer Active Adrián Varghese MD Acti ve PREDNISONE 20 MG TAB 2 tabs daily for 3 days, 1 t ab daily for 3 days, 1/2 tab daily for 2 days PREDNISONE 37436067416 No Longer Active Adrián Varghese MD Active ZANTAC 75 75 MG TABS take 1 po BID RANITIDINE H CL 26703513455 No Longer Active Uriel BOYD Active BENZACLIN 1-5 % GEL apply to skin BID prn for acne 201 05/05/14 CLINDAMYCIN PHOS-BENZOYL PEROX 67718012019 No Longer Active Uriel BOYD Active BENZACLIN 1-5 % GEL apply to skin BID prn for acne 201 05/05/14 BENZACLIN 1-5 % GEL 988836 CLINDAMYCIN PHOS-BENZOYL PEROX Inactive MINOCYCLINE HCL 100 MG CAPS take one po BID MINOCYCLINE HCL 100 MG CAPS 973070 MINOCYCLINE HCL Inactive CLINDAMYCIN PHOSPHATE 2 % CREA apply cream to acne BID prn 06/14 CLINDAMYCIN PHOSPHATE 2 % CREA 981552 CLINDAMYCIN PHOSP HATE Inactive ULTRAM 50 MG TAB take 1 tab po q 6 hrs prn headache pain ULTRAM 50 MG TAB 230057 TRAMADOL HCL Inactive ZANTAC 75 75 MG TABS take 1 po BID ZANTAC 75 75 MG TABS 959616 RANITIDINE HCL Inactive PREDNISONE 20 MG TAB 2 tabs daily for 3 days, 1 t ab daily for 3 days, 1/2 tab daily for 2 days PREDNISONE 20 MG TAB 823938 PREDNISON E Inactive ZITHROMAX 250 MG TAB 2 po today, then 1 po q days 2-5 ZITHROMAX 250 MG TAB 1713169 AZITHROMYCIN Inactive ZITHROMAX 250 MG TAB 2 po today, then 1 po q days 2-5 ZITHROMAX 250 MG TAB 6912613 AZITHROMYCIN Inactive Immunizations Vaccine Administration Date Value [...] [phone] Encounters Code Encounter Date Provider Facility CPT-91899 Level 4 Est. Patient 13:54:09 CDT Adrián dyson MD [facility] CPT-40833 Level 3 Est. Patient 09:22:14 CDT Adrián dyson MD [facility]-99714 Level 3 Est. Patient 08:59:31 CDT Adrián dyson MD [facility]-23310 Level 3 Est. Patient 11:58:31 CDT Adrián dyson MD [facility] CPT-03087 Level 3 Est. Patient 09:06:35 CDT Adrián dyson MD [facility] CPT-16130 Level 3 Est. Patient 09:18:45 CDT Adrián dyson MD [facility] CPT-05571 Level 3 Est. Patient 09:13:22 CDT Adrián dyson MD [facility] CPT-85315 Level 3 Est. Patient 18:04:31 WHEEL MOLDER Adrián dyson MD [facility] CPT-22740 Level 4 Est. Patient 14:00:53 CDT Uriel bhatia [facility] CPT-60917 Level 3 Est. Patient 20:00:09 CDT Terry jenkins DO [facility] CPT-48458 Level 3 Est. Patient 08:45:08 CDT Uriel bhatia [facility] CPT-09339 Level 3 Est. Patient 09:09:26 CDT Uriel bhatia [facility] CPT-36393 Level 3 Est. Patient 16:32:31 CDT Adrián dyson MD [facility] CPT-19621 Level 3 Est. Patient 09:35:27 WHEEL MOLDER Norman Aguilararnulfo BOYD [facility] CPT-31862 Level 2 Est. Patient 16:51:37 WHEEL MOLDER Adrián dyson MD [facility] CPT-20560 Level 3 Est. Patient 10:00:11 WHEEL MOLDER Ace Arriaza MD [facility] Procedures Code Procedure Name Date Entry Date Standard Desc ription CPT-J3420 Vitamin B12 1000mcg (Cyanocobalamin) 16:09:42 CDT CPT-53677 Abx/Therapy Injection 16:09:42 CDT CPT-J3420 Vitamin B12 1000mcg (Cyanocobalamin) 15:22:47 CDT CPT-43710 Abx/Therapy Injection 15:22:47 CDT CPT-J3420 Vitamin B12 1000mcg (Cyanocobalamin) 17:00:35 CDT CPT-06597 Abx/Therapy Injection 17:00:35 CDT CPT-05219 First Vx - Ix admin via ID I M or jet injects without counseling by physician 16:04:17 WHEEL MOLDER CPT-90279 Gardasil 9 Intramuscular Suspension 1 6:04:17 WHEEL MOLDER CPT-42957 Venipuncture Draw Fee 09:40:26 CDT CPT-94234 [place] [facility] - LAB USE ONLY 09:40:26 CDT 11/30 CPT-06119 CBC with Diff - LAB USE ONLY 09:40:26 CDT 2 CPT-93650 Addl Vx - Ix admin via ID IM or jet injects without counseling by physician 09:40:21 CDT CPT-58239 Menactra Intramuscular Injectable 09:40:21 CDT CPT-09837 Addl Vx - Ix admin via ID IM or jet injects without counseling by physician 09:40:21 CDT CPT-15077 Gardasil 9 Intramuscular Suspension 0 9:40:21 CDT CPT-30416 First Vx - Ix admin via ID I M or jet injects without counseling by physician 09:40:21 CDT CPT-48924 Havrix Intramuscular Suspension 720 EL U /0.5ML 09:40:21 CDT CPT-J2930 Solu Medrol 125 mg (Methyl Prednisolone Sodium Succinate) 09:43:26 CDT CPT-93474 Abx/Therapy Injection 09:43:26 CDT CPT-J2930 Solu Medrol 125 mg (Methyl Prednisolone Sodium Succinate) 09:05:55 CDT CPT-71727 Abx/Therapy Injection 09:05:55 CDT CPT-16093 Venipuncture Draw Fee 14:01:33 CDT CPT-45792 EKG Trac and Interp 11:22:04 CDT CPT-15807 Venipuncture Draw Fee 10:53:35 CDT CPT-J2930 Solu Medrol 125 mg (Methyl Prednisolone Sodium Succinate) 09:29:26 CDT CPT-18884 Abx/Therapy Injection 09:29:26 CDT CPT-Cryo Cryotherapy 16:51:37 WHEEL MOLDER
--- OUTSIDE RECORDS SUMMARY | 2019-07-22 19:38 | XMS REPORT | Clinical Summary ---
[...] Then increase to 20mg daily. FLUOXETINE HCL 45577528616 No Longer Active Yulissa Gibbs APRN Active PROZAC 20 MG ORAL CAPSULE Take 1 tab daily FLUO XETINE HCL 03828291721 Active Shannan Gibbs APRN Active BUSPIRONE HCL 7.5 MG ORAL TABLET 1 pill twice daily, for anxiety 20 14/11/05 BUSPIRONE HCL 45560141421 Active Shannan Gibbs APRN Active CITALOPRAM HYDROBROMIDE 20 MG ORAL TABLET take 1 tab p o qday for depresion and anxiety. CITALOPRAM HYDROBROMIDE 80153881157 No L onger Active Shannan Gibbs APRN Active CYANOCOBALAMIN 1000 MCG/ML INJECTION SOLUTION 1 inject ion weekly for 1 month, than 1 a month for 2 months. recheck lab CYANOCO BALAMIN 29850845296 No Longer Active Shannan Gibbs APRN Active ULTRAM 50 MG ORAL TABLET 1 TAB PO Q 6 HRS PRN HEADACHE TRAMADOL HCL 58083032370 Active Adrián Varghese MD Active ULTRAM 50 MG ORAL TABLET take 1 tab po q 6 hrs prn headache pain TRAMADOL HCL 33133816484 No Longer Active Adrián Varghese MD Active CLINDAMYCIN PHOSPHATE 2 % VAGINAL CREAM apply cream to acne BID prn CLINDAMYCIN PHOSPHATE 48608885647 No Longer Active Adrián dyson MD Active MINOCYCLINE HCL 100 MG ORAL CAPSULE take one po BID 20 13/11/25 MINOCYCLINE HCL 75184998129 No Longer Active Adrián Varghese MD A ctive TRI-SPRINTEC 0.18/0.215/0.25 MG-35 MCG ORAL TABLET 1 po qd a s directed NORGESTIM-ETH ESTRAD TRIPHASIC 05701079624 Active Adrián Varghese MD Active ZITHROMAX 250 MG ORAL TABLET 2 po today, then 1 po q days 2-5 20 12/07/06 AZITHROMYCIN 15714712211 No Longer Active Adrián Varghese MD Active ZITHROMAX 250 MG ORAL TABLET 2 po today, then 1 po q days 2-5 20 11/06/16 AZITHROMYCIN 12090320153 No Longer Active Adrián Varghese MD Active PREDNISONE 20 MG ORAL TABLET 2 tabs daily for 3 days, 1 tab daily for 3 days, 1/2 tab daily for 2 days PREDNISONE 10686504201 No Longer Active Adrián Varghese MD Active ZANTAC 75 75 MG ORAL TABLET take 1 po BID RANIT IDINE HCL 15290750973 No Longer Active Uriel BOYD Active BENZACLIN 1-5 % EXTERNAL GEL apply to skin BID prn for acne 2012 CLINDAMYCIN PHOS-BENZOYL PEROX 99292638644 No Longer Active Uriel BOYD Active BENZACLIN 1-5 % EXTERNAL GEL apply to skin BID prn for acne 2012 BENZACLIN 1-5 % EXTERNAL GEL 750515 CLINDAMYCIN PHOS-BE NZOYL PEROX Inactive MINOCYCLINE HCL 100 MG ORAL CAPSULE take one po BID 13/11/25 MINOCYCLINE HCL 100 MG ORAL CAPSULE 111761 MINOCYCLINE HCL Inac tive CLINDAMYCIN PHOSPHATE 2 % VAGINAL CREAM apply cream to acne BID prn CLINDAMYCIN PHOSPHATE 2 % VAGINAL CREAM 356156 CLINDAMY ANGELIA PHOSPHATE Inactive ULTRAM 50 MG ORAL TABLET take 1 tab po q 6 hrs prn headache pain ULTRAM 50 MG ORAL TABLET 581110 TRAMADOL HCL Inactiv e CYANOCOBALAMIN 1000 MCG/ML INJECTION SOLUTION 1 inject ion weekly for 1 month, than 1 a month for 2 months. recheck lab CYANOCOBALAMIN 1000 MCG/ML INJECTION SOLUTION 593374 CYANOCOBALAMIN Inactive CITALOPRAM HYDROBROMIDE 20 MG ORAL TABLET take 1 tab p o qday for depresion and anxiety. CITALOPRAM HYDROBROMIDE 20 MG ORAL TABLET 126328 CITALOPRAM HYDROBROMIDE Inactive PROZAC 10 MG ORAL CAPSULE Take 1 tab daily for 1 week. Then increase to 20mg daily. PROZAC 10 MG ORAL CAPSULE 069753 FLUOXETINE HCL Inactive ZANTAC 75 75 MG ORAL TABLET take 1 po BID ZANTAC 75 75 MG ORAL TABLET 878859 RANITIDINE HCL Inactive PREDNISONE 20 MG ORAL TABLET 2 tabs daily for 3 days, 1 tab daily for 3 days, 1/2 tab daily for 2 days PREDNISONE 20 MG ORAL T ABLET 410549 PREDNISONE Inactive ZITHROMAX 250 MG ORAL TABLET 2 po today, then 1 po q days 2-5 20 11/06/16 ZITHROMAX 250 MG ORAL TABLET 818738 AZITHROMYCIN [place] ctive ZITHROMAX 250 MG ORAL TABLET 2 po today, then 1 po q days 2-5 20 12/07/06 ZITHROMAX 250 MG ORAL TABLET 583231 AZITHROMYCIN [place] ctive Immunizations Vaccine Administration Date [...] Value Unit Range Description Lab Report: Chlamydia/GC APTIMA/53798 - Lab chlamydia DNA probe NOT DETECTED NOT DETECTED Lab Report: Chlamydia/GC APTIMA/43184 - Microbiology Neisseria gonorrhoeae DNA probe NOT DETECTED NO T DETECTED Lab Report: Comp. Metabolic Panel - Chem istry sodium, serum 139 mmol/L 663-925 5724/09/06 carbon dioxide, venous blood 25.3 mmol/L 21.0-32 [...] 5.0-8.5 Encounters Code Encounter Date Provider Facility CPT-36490 Level 3 Est. 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 Patient 11:10:55 CDT Hubert [facility] CPT-80128 Level 4 Est. Patient 14:07:40 CDT Hubert [facility] CPT-73568 Level 4 Est. Patient 13:54:09 CDT Adrián dyson MD [facility] CPT-31701 Level 3 Est. Patient 09:22:14 CDT Adrián dyson MD [facility] CPT-14415 Level 3 Est. Patient 08:59:31 CDT Adrián dyson MD [facility] CPT-74334 Level 3 Est. Patient 11:58:31 CDT Adrián dyson MD [facility] CPT-41497 Level 3 Est. Patient 09:06:35 CDT Adrián dyson MD [facility] CPT-60401 Level 3 Est. Patient 09:18:45 CDT Adrián dyson MD [facility] CPT-29583 Level 3 Est. Patient 09:13:22 CDT Adrián dyson MD [facility] CPT-81051 Level 3 Est. Patient 18:04:31 AIRCRAFT ENGINE INSTALLER Adrián dyson MD [facility] CPT-83672 Level 4 Est. Patient 14:00:53 CDT Uriel bhatia [facility] CPT-10264 Level 3 Est. Patient 20:00:09 CDT Terry jenkins DO [facility] CPT-87575 Level 3 Est. Patient 08:45:08 CDT Uriel bhatia [facility] CPT-77088 Level 3 Est. Patient 09:09:26 CDT Uriel bhatia [facility] CPT-70544 Level 3 Est. Patient 16:32:31 CDT Adrián dyson MD [facility] CPT-57784 Level 3 Est. Patient 09:35:27 AIRCRAFT ENGINE INSTALLER Norman fuentes [facility] CPT-52731 Level 2 Est. Patient 16:51:37 AIRCRAFT ENGINE INSTALLER Adrián dyson MD [facility] CPT-61209 Level 3 Est. Patient 10:00:11 AIRCRAFT ENGINE INSTALLER Ace Arriaza MD [facility] Procedures Code Procedure Name Date Entry Date Standard Desc ription CPT-54202 First Vx - Ix admin via ID I M or jet injects without counseling by physician 14:18:02 CDT CPT-54216 Gardasil 9 Intramuscular Suspension 1 4:18:02 CDT CPT-J3420 Vitamin B12 1000mcg (Cyanocobalamin) 16:30:23 CDT CPT-22553 Abx/Therapy Injection 16:30:23 CDT CPT-J3420 Vitamin B12 1000mcg (Cyanocobalamin) 16:09:42 CDT CPT-22440 Abx/Therapy Injection 16:09:42 CDT CPT-J3420 Vitamin B12 1000mcg (Cyanocobalamin) 15:22:47 CDT CPT-24484 Abx/Therapy Injection 15:22:47 CDT CPT-J3420 Vitamin B12 1000mcg (Cyanocobalamin) 17:00:35 CDT CPT-38961 Abx/Therapy Injection 17:00:35 CDT CPT-58112 First Vx - Ix admin via ID I M or jet injects without counseling by physician 16:04:17 AIRCRAFT ENGINE INSTALLER CPT-65188 Gardasil 9 Intramuscular Suspension 1 6:04:17 AIRCRAFT ENGINE INSTALLER CPT-59966 Venipuncture Draw Fee 09:40:26 CDT CPT-93717 [place] [facility] - LAB USE ONLY 09:40:26 CDT 11/30 CPT-85022 CBC with Diff - LAB USE ONLY 09:40:26 CDT 2 CPT-16299 Addl Vx - Ix admin via ID IM or jet injects without counseling by physician 09:40:21 CDT CPT-12191 Menactra Intramuscular Injectable 09:40:21 CDT CPT-15745 Addl Vx - Ix admin via ID IM or jet injects without counseling by physician 09:40:21 CDT CPT-63624 Gardasil 9 Intramuscular Suspension 0 9:40:21 CDT CPT-31224 First Vx - Ix admin via ID I M or jet injects without counseling by physician 09:40:21 CDT CPT-27596 Havrix Intramuscular Suspension 720 EL U /0.5ML 09:40:21 CDT CPT-J2930 Solu Medrol 125 mg (Methyl Prednisolone Sodium Succinate) 09:43:26 CDT CPT-93321 Abx/Therapy Injection 09:43:26 CDT CPT-J2930 Solu Medrol 125 mg (Methyl Prednisolone Sodium Succinate) 09:05:55 CDT CPT-82738 Abx/Therapy Injection 09:05:55 CDT CPT-18108 Venipuncture Draw Fee 14:01:33 CDT CPT-58598 EKG Trac and Interp 11:22:04 CDT CPT-05720 Venipuncture Draw Fee 10:53:35 CDT CPT-J2930 Solu Medrol 125 mg (Methyl Prednisolone Sodium Succinate) 09:29:26 CDT CPT-32958 Abx/Therapy Injection 09:29:26 CDT CPT-Cryo Cryotherapy 16:51:37 AIRCRAFT ENGINE INSTALLER
--- OUTSIDE RECORDS SUMMARY | 2019-07-22 19:38 | XMS REPORT | Clinical Summary ---
Author Author Yovanny, Clarisa Christopher Organization [facility] Address Unknown Phone Unavailable Allergies, [...] 079.99 Active Norman BOYD Unspecified viral infection in conditions classified elsewhere and of unspecified site ACNE, CYSTIC 706.1 Active Adrián Varghese MD [...] 462 Active Adrián Varghese MD Acute pharyngitis Pharyngitis-Acute ICD-462 Inactive Adrián leavitt MD Medication List Medication Instructions Start Date Stop Date Generic Name NDC Status Provider Patient Instruction ZITHROMAX 250 MG TAB 2 po today, then 1 po q days 2-5 AZITHROMYCIN 49032838383 No Longer Active Adrián Varghese MD Acti ve ULTRAM 50 MG TAB take 1 tab po q 6 hrs prn headache pain TRAMADOL HCL 04150789832 Active Adrián Varghese MD Active ZITHROMAX 250 MG TAB 2 po today, then 1 po q days 2-5 AZITHROMYCIN 61452700726 No Longer Active Adrián Varghese MD Acti ve CLINDAMYCIN PHOSPHATE 2 % CREA apply cream to acne BID prn CLINDAMYCIN PHOSPHATE 22383520030 Active Adrián Varghese MD Active PREDNISONE 20 MG TAB 2 tabs daily for 3 days, 1 t ab daily for 3 days, 1/2 tab daily for 2 days PREDNISONE 92428436835 No Longer Active Adrián Varghese MD Active ZANTAC 75 75 MG TABS take 1 po BID RANITIDINE H CL 73454154578 No Longer Active Uriel BOYD Active MINOCYCLINE HCL 100 MG CAPS take one po BID MIN OCYCLINE HCL 94707020147 Active Adrián Varghese MD Active BENZACLIN 1-5 % GEL apply to skin BID prn for acne 201 05/05/14 CLINDAMYCIN PHOS-BENZOYL PEROX 93926186560 No Longer Active Uriel BOYD Active BENZACLIN 1-5 % GEL apply to skin BID prn for acne 201 05/05/14 BENZACLIN 1-5 % GEL 913161 CLINDAMYCIN PHOS-BENZOYL PEROX Inactive ZANTAC 75 75 MG TABS take 1 po BID ZANTAC 75 75 MG TABS 100989 RANITIDINE HCL Inactive PREDNISONE 20 MG TAB 2 tabs daily for 3 days, 1 t ab daily for 3 days, 1/2 tab daily for 2 days PREDNISONE 20 MG TAB 954883 PREDNISON E Inactive ZITHROMAX 250 MG TAB 2 po today, then 1 po q days 2-5 ZITHROMAX 250 MG TAB 9365957 AZITHROMYCIN Inactive ZITHROMAX 250 MG TAB 2 po today, then 1 po q days 2-5 ZITHROMAX 250 MG TAB 3494288 AZITHROMYCIN Inactive Immunizations Vaccine Administration Date Value [...] Range Description blood pressure, diastolic - 8462-4 77 mm[Hg] BP jones blood pressure, systolic - 8480-6 118 mm[Hg] BP sys pulse rate E&M - 8867-4 60 /min H eart rate temperature E&M 97.5 [degF] Body temp erature weight E&M - 3141-9 127 [lb_av] Weigh t Measured blood pressure, diastolic - 8462-4 77 mm[Hg] BP jones blood pressure, systolic - 8480-6 118 mm[Hg] BP sys height E&M - 8302-2 60.25 [in_us] Bdy h eight pulse rate E&M - 8867-4 73 /min H eart rate temperature E&M 97.4 [degF] Body temp erature weight E&M - 3141-9 114 [lb_av] Weigh t Measured Encounters Code Encounter Date Provider Facility CPT-28966 Level 3 Est. Patient 11:58:31 CDT Adrián dyson MD [facility] CPT-66009 Level 3 Est. Patient 09:06:35 CDT Adrián dyson MD [facility] CPT-22479 Level 3 Est. Patient 09:18:45 CDT Adrián dyson MD [facility] CPT-67499 Level 3 Est. Patient 09:13:22 CDT Adrián dyson MD [facility] CPT-63589 Level 3 Est. Patient 18:04:31 ICER MACHINE OPERATOR Adrián dyson MD [facility] CPT-68459 Level 4 Est. Patient 14:00:53 CDT Uriel BOYD [facility] CPT-62061 Level 3 Est. Patient 20:00:09 CDT Terry jenkins DO [facility] CPT-27427 Level 3 Est. Patient 08:45:08 CDT Uriel bhatia [facility] CPT-40916 Level 3 Est. Patient 09:09:26 CDT Uriel bhatia [facility] CPT-36744 Level 3 Est. Patient 16:32:31 CDT Adrián dyson MD [facility] CPT-64780 Level 3 Est. Patient 09:35:27 ICER MACHINE OPERATOR Norman fuentes [facility] CPT-74333 Level 2 Est. Patient 16:51:37 ICER MACHINE OPERATOR Adrián dyson MD [facility] CPT-54029 Level 3 Est. Patient 10:00:11 ICER MACHINE OPERATOR Ace Arriaza MD [facility] Procedures Code Procedure Name Date Entry Date Standard Desc ription CPT-J2930 Solu Medrol 125 mg (Methyl Prednisolone Sodium Succinate) 09:43:26 CDT CPT-22174 Abx/Therapy Injection 09:43:26 CDT CPT-J2930 Solu Medrol 125 mg (Methyl Prednisolone Sodium Succinate) 09:05:55 CDT CPT-73761 Abx/Therapy Injection 09:05:55 CDT CPT-59779 Venipuncture Draw Fee 14:01:33 CDT CPT-29323 EKG Trac and Interp 11:22:04 CDT CPT-47714 Venipuncture Draw Fee 10:53:35 CDT CPT-J2930 Solu Medrol 125 mg (Methyl Prednisolone Sodium Succinate) 09:29:26 CDT CPT-64741 Abx/Therapy Injection 09:29:26 CDT CPT-Cryo Cryotherapy 16:51:37 ICER MACHINE OPERATOR
--- OUTSIDE RECORDS SUMMARY | 2019-07-22 19:38 | XMS REPORT | Clinical Summary ---
[...] Instructions Start Date Stop Date Generic Name ND Status Provider Patient Instruction TRI-SPRINTEC 0.18/0.215/0.25 MG-35 MCG TABS 1 po qd as directed 201 07/04/00 NORGESTIM-ETH ESTRAD TRIPHASIC 47896827881 Active Samreen Lemons Active ZITHROMAX 250 MG TAB 2 po today, then 1 po q days 2-5 AZITHROMYCIN 03844213539 No Longer Active Adrián Varghese MD Acti ve ULTRAM 50 MG TAB take 1 tab po q 6 hrs prn headache pain TRAMADOL HCL 86916386877 Active Adrián Varghese MD Active ZITHROMAX 250 MG TAB 2 po today, then 1 po q days 2-5 AZITHROMYCIN 89226403985 No Longer Active Adrián Varghese MD Acti ve CLINDAMYCIN PHOSPHATE 2 % CREA apply cream to acne BID prn CLINDAMYCIN PHOSPHATE 90113416822 Active Adrián Varghese MD Active PREDNISONE 20 MG TAB 2 tabs daily for 3 days, 1 t ab daily for 3 days, 1/2 tab daily for 2 days PREDNISONE 29777181503 No Longer Active Adrián Varghese MD Active ZANTAC 75 75 MG TABS take 1 po BID RANITIDINE H CL 51902792406 No Longer Active Uriel BOYD Active MINOCYCLINE HCL 100 MG CAPS take one po BID MIN OCYCLINE HCL 69143215654 Active Adrián Varghese MD Active BENZACLIN 1-5 % GEL apply to skin BID prn for acne 201 05/05/14 CLINDAMYCIN PHOS-BENZOYL PEROX 58640272386 No Longer Active Uriel BOYD Active BENZACLIN 1-5 % GEL apply to skin BID prn for acne 201 05/05/14 BENZACLIN 1-5 % GEL 030376 CLINDAMYCIN PHOS-BENZOYL PEROX Inactive ZANTAC 75 75 MG TABS take 1 po BID ZANTAC 75 75 MG TABS 863700 RANITIDINE HCL Inactive PREDNISONE 20 MG TAB 2 tabs daily for 3 days, 1 t ab daily for 3 days, 1/2 tab daily for 2 days PREDNISONE 20 MG TAB 530745 PREDNISON E Inactive ZITHROMAX 250 MG TAB 2 po today, then 1 po q days 2-5 ZITHROMAX 250 MG TAB 2983399 AZITHROMYCIN Inactive ZITHROMAX 250 MG TAB 2 po today, then 1 po q days 2-5 ZITHROMAX 250 MG TAB 1431439 AZITHROMYCIN Inactive Immunizations Vaccine Administration Date Value [...] Measured Encounters Code Encounter Date Provider Facility CPT-63374 Level 3 Est. Patient 11:58:31 CDT Adrián dyson MD [facility] CPT-73323 Level 3 Est. Patient 09:06:35 CDT Adrián dyson MD [facility] CPT-12499 Level 3 Est. Patient 09:18:45 CDT Adrián dyson MD [facility] CPT-97249 Level 3 Est. Patient 09:13:22 CDT Adrián dyson MD [facility] CPT-05456 Level 3 Est. Patient 18:04:31 DIAGNOSTIC TECHNOLOGIST Adrián dyson MD [facility] CPT-18322 Level 4 Est. Patient 14:00:53 CDT Uriel BOYD [facility] CPT-00900 Level 3 Est. Patient 20:00:09 CDT Terry jenkins DO [facility] CPT-01917 Level 3 Est. Patient 08:45:08 CDT Uriel Ashleyclarissa bhatia [facility] CPT-58239 Level 3 Est. Patient 09:09:26 CDT Richcristian Ashleyclarissa bhatia [facility] CPT-69809 Level 3 Est. Patient 16:32:31 CDT Adrián dyson MD [facility] CPT-84823 Level 3 Est. Patient 09:35:27 DIAGNOSTIC TECHNOLOGIST Norman fuentes [facility] CPT-43329 Level 2 Est. Patient 16:51:37 DIAGNOSTIC TECHNOLOGIST Adrián dyson MD [facility] CPT-93295 Level 3 Est. Patient 10:00:11 DIAGNOSTIC TECHNOLOGIST Ace Arriaza MD [facility] Procedures Code Procedure Name Date Entry Date Standard Desc ription CPT-J2930 Solu Medrol 125 mg (Methyl Prednisolone Sodium Succinate) 09:43:26 CDT CPT-40259 Abx/Therapy Injection 09:43:26 CDT CPT-J2930 Solu Medrol 125 mg (Methyl Prednisolone Sodium Succinate) 09:05:55 CDT CPT-17482 Abx/Therapy Injection 09:05:55 CDT CPT-66927 Venipuncture Draw Fee 14:01:33 CDT CPT-95086 EKG Trac and Interp 11:22:04 CDT CPT-05377 Venipuncture Draw Fee 10:53:35 CDT CPT-J2930 Solu Medrol 125 mg (Methyl Prednisolone Sodium Succinate) 09:29:26 CDT CPT-63973 Abx/Therapy Injection 09:29:26 CDT CPT-Cryo Cryotherapy 16:51:37 DIAGNOSTIC TECHNOLOGIST
--- OUTSIDE RECORDS SUMMARY | 2019-07-22 19:38 | XMS REPORT | Clinical Summary ---
[...] to acne BID prn 06/14 CLINDAMYCIN PHOSPHATE 28223048610 No Longer Active Adrián Joseph Active MINOCYCLINE HCL 100 MG CAPS take one po BID MINOCYCLINE HCL 80858287574 No Longer Active Adrián Varghese MD Acti ve TRI-SPRINTEC 0.18/0.215/0.25 MG-35 MCG TABS 1 po qd as directed 201 07/04/00 NORGESTIM-ETH ESTRAD TRIPHASIC 61857899214 Active Adrián Varghese MD Active ZITHROMAX 250 MG TAB 2 po today, then 1 po q days 2-5 AZITHROMYCIN 67259141669 No Longer Active Adrián Varghese MD Acti ve ULTRAM 50 MG TAB take 1 tab po q 6 hrs prn headache pain TRAMADOL HCL 78151530221 Active Adrián Varghese MD Active ZITHROMAX 250 MG TAB 2 po today, then 1 po q days 2-5 AZITHROMYCIN 01053463317 No Longer Active Adrián Varghese MD Acti ve PREDNISONE 20 MG TAB 2 tabs daily for 3 days, 1 t ab daily for 3 days, 1/2 tab daily for 2 days PREDNISONE 75589825652 No Longer Active Adrián Varghese MD Active ZANTAC 75 75 MG TABS take 1 po BID RANITIDINE H CL 14473573852 No Longer Active Uriel BOYD Active BENZACLIN 1-5 % GEL apply to skin BID prn for acne 201 05/05/14 CLINDAMYCIN PHOS-BENZOYL PEROX 60296806747 No Longer Active Uriel BOYD Active BENZACLIN 1-5 % GEL apply to skin BID prn for acne 201 05/05/14 BENZACLIN 1-5 % GEL 900048 CLINDAMYCIN PHOS-BENZOYL PEROX Inactive MINOCYCLINE HCL 100 MG CAPS take one po BID MINOCYCLINE HCL 100 MG CAPS 302798 MINOCYCLINE HCL Inactive CLINDAMYCIN PHOSPHATE 2 % CREA apply cream to acne BID prn 06/14 CLINDAMYCIN PHOSPHATE 2 % CREA 027296 CLINDAMYCIN PHOSP HATE Inactive ZANTAC 75 75 MG TABS take 1 po BID ZANTAC 75 75 MG TABS 146573 RANITIDINE HCL Inactive PREDNISONE 20 MG TAB 2 tabs daily for 3 days, 1 t ab daily for 3 days, 1/2 tab daily for 2 days PREDNISONE 20 MG TAB 872339 PREDNISON E Inactive ZITHROMAX 250 MG TAB 2 po today, then 1 po q days 2-5 ZITHROMAX 250 MG TAB 3006114 AZITHROMYCIN Inactive ZITHROMAX 250 MG TAB 2 po today, then 1 po q days 2-5 ZITHROMAX 250 MG TAB 7651505 AZITHROMYCIN Inactive Immunizations Vaccine Administration Date Value [...] 142-424 Encounters Code Encounter Date Provider Facility CPT-01568 Level 3 Est. Patient 09:22:14 CDT Adrián dyson MD [facility] CPT-08297 Level 3 Est. Patient 08:59:31 CDT Adrián dyson MD [facility] CPT-05011 Level 3 Est. Patient 11:58:31 CDT Adrián dyson MD [facility] CPT-16889 Level 3 Est. Patient 09:06:35 CDT Adrián dyson MD [facility] CPT-28833 Level 3 Est. Patient 09:18:45 CDT Adrián dyson MD [facility] CPT-94663 Level 3 Est. Patient 09:13:22 CDT Adrián dyson MD [facility] CPT-84646 Level 3 Est. Patient 18:04:31 PLANT HEALTH MANAGER Adrián dyson MD [facility] CPT-14357 Level 4 Est. Patient 14:00:53 CDT Richcristian Ashleyclarissa sriram [facility] CPT-31903 Level 3 Est. Patient 20:00:09 CDT Terry jenkins DO [facility] CPT-64782 Level 3 Est. Patient 08:45:08 CDT Uriel bhatia [facility] CPT-99696 Level 3 Est. Patient 09:09:26 CDT Uriel hintonist [facility] CPT-69317 Level 3 Est. Patient 16:32:31 CDT Adrián dyson MD [facility] CPT-80165 Level 3 Est. Patient 09:35:27 PLANT HEALTH MANAGER Norman fuentes [facility] CPT-49509 Level 2 Est. Patient 16:51:37 PLANT HEALTH MANAGER Adrián dyson MD [facility] CPT-12226 Level 3 Est. Patient 10:00:11 PLANT HEALTH MANAGER Ace Arriaza MD [facility] Procedures Code Procedure Name Date Entry Date Standard Desc ription CPT-17587 Addl Vx - Ix admin via ID IM or jet injects without counseling by physician 09:40:21 CDT CPT-12824 Menactra Intramuscular Injectable 09:40:21 CDT CPT-84037 Addl Vx - Ix admin via ID IM or jet injects without counseling by physician 09:40:21 CDT CPT-12674 Gardasil 9 Intramuscular Suspension 0 9:40:21 CDT CPT-03045 First Vx - Ix admin via ID I M or jet injects without counseling by physician 09:40:21 CDT CPT-84784 Havrix Intramuscular Suspension 720 EL U /0.5ML 09:40:21 CDT CPT-J2930 Solu Medrol 125 mg (Methyl Prednisolone Sodium Succinate) 09:43:26 CDT CPT-54291 Abx/Therapy Injection 09:43:26 CDT CPT-J2930 Solu Medrol 125 mg (Methyl Prednisolone Sodium Succinate) 09:05:55 CDT CPT-10534 Abx/Therapy Injection 09:05:55 CDT CPT-27656 Venipuncture Draw Fee 14:01:33 CDT CPT-69524 EKG Trac and Interp 11:22:04 CDT CPT-64093 Venipuncture Draw Fee 10:53:35 CDT CPT-J2930 Solu Medrol 125 mg (Methyl Prednisolone Sodium Succinate) 09:29:26 CDT CPT-97323 Abx/Therapy Injection 09:29:26 CDT CPT-Cryo Cryotherapy 16:51:37 PLANT HEALTH MANAGER
--- OUTSIDE RECORDS SUMMARY | 2019-07-22 19:39 | XMS REPORT | Clinical Summary ---
Author Author Yovanny, Clarisa Christopher Organization [facility] Address Unknown Phone Unavailable Allergies, Adverse Reactions, [...] of lymph nodes CHEST DISCOMFORT 786.59 Active Ureil BOYD Other chest pain Pharyngitis-Acute 462 Inactive [...] Then increase to 20mg daily. FLUOXETINE HCL 97153837418 No Longer Active Yulissa Gibbs APRN Active PROZAC 20 MG ORAL CAPSULE Take 1 tab daily FLUO XETINE HCL 88545486925 Active Shannan Gibbs APRN Active BUSPIRONE HCL 7.5 MG ORAL TABLET 1 pill twice daily, for anxiety 20 14/11/05 BUSPIRONE HCL 26088469361 Active Shannan Gibbs APRN Active CITALOPRAM HYDROBROMIDE 20 MG ORAL TABLET take 1 tab p o qday for depresion and anxiety. CITALOPRAM HYDROBROMIDE 50842743811 No L onger Active Shannan Gibbs APRN Active CYANOCOBALAMIN 1000 MCG/ML INJECTION SOLUTION 1 inject ion weekly for 1 month, than 1 a month for 2 months. recheck lab CYANOCO BALAMIN 88460879844 No Longer Active Shannan Gibbs APRN Active ULTRAM 50 MG ORAL TABLET 1 TAB PO Q 6 HRS PRN HEADACHE TRAMADOL HCL 29939005248 Active Adrián Varghese MD Active ULTRAM 50 MG ORAL TABLET take 1 tab po q 6 hrs prn headache pain TRAMADOL HCL 59439363114 No Longer Active Adrián Varghese MD Active CLINDAMYCIN PHOSPHATE 2 % VAGINAL CREAM apply cream to acne BID prn CLINDAMYCIN PHOSPHATE 49928451292 No Longer Active Adrián dyson MD Active MINOCYCLINE HCL 100 MG ORAL CAPSULE take one po BID 20 13/11/25 MINOCYCLINE HCL 00650070764 No Longer Active Adrián Varghese MD A ctive TRI-SPRINTEC 0.18/0.215/0.25 MG-35 MCG ORAL TABLET 1 po qd a s directed NORGESTIM-ETH ESTRAD TRIPHASIC 18857320703 Active Adrián Varghese MD Active ZITHROMAX 250 MG ORAL TABLET 2 po today, then 1 po q days 2-5 20 12/07/06 AZITHROMYCIN 66242359219 No Longer Active Adrián Varghese MD Active ZITHROMAX 250 MG ORAL TABLET 2 po today, then 1 po q days 2-5 20 11/06/16 AZITHROMYCIN 13722421242 No Longer Active Adrián Varghese MD Active PREDNISONE 20 MG ORAL TABLET 2 tabs daily for 3 days, 1 tab daily for 3 days, 1/2 tab daily for 2 days PREDNISONE 06265917920 No Longer Active Adrián Varghese MD Active ZANTAC 75 75 MG ORAL TABLET take 1 po BID RANIT IDINE HCL 87013085030 No Longer Active Uriel BOYD Active BENZACLIN 1-5 % EXTERNAL GEL apply to skin BID prn for acne 2012 CLINDAMYCIN PHOS-BENZOYL PEROX 28937729026 No Longer Active Uriel BOYD Active BENZACLIN 1-5 % EXTERNAL GEL apply to skin BID prn for acne 2012 BENZACLIN 1-5 % EXTERNAL GEL 325132 CLINDAMYCIN PHOS-BE NZOYL PEROX Inactive MINOCYCLINE HCL 100 MG ORAL CAPSULE take one po BID 13/11/25 MINOCYCLINE HCL 100 MG ORAL CAPSULE 289083 MINOCYCLINE HCL Inac tive CLINDAMYCIN PHOSPHATE 2 % VAGINAL CREAM apply cream to acne BID prn CLINDAMYCIN PHOSPHATE 2 % VAGINAL CREAM 857457 CLINDAMY ANGELIA PHOSPHATE Inactive ULTRAM 50 MG ORAL TABLET take 1 tab po q 6 hrs prn headache pain ULTRAM 50 MG ORAL TABLET 382032 TRAMADOL HCL Inactiv e CYANOCOBALAMIN 1000 MCG/ML INJECTION SOLUTION 1 inject ion weekly for 1 month, than 1 a month for 2 months. recheck lab CYANOCOBALAMIN 1000 MCG/ML INJECTION SOLUTION 376005 CYANOCOBALAMIN Inactive CITALOPRAM HYDROBROMIDE 20 MG ORAL TABLET take 1 tab p o qday for depresion and anxiety. CITALOPRAM HYDROBROMIDE 20 MG ORAL TABLET 459225 CITALOPRAM HYDROBROMIDE Inactive PROZAC 10 MG ORAL CAPSULE Take 1 tab daily for 1 week. Then increase to 20mg daily. PROZAC 10 MG ORAL CAPSULE 731787 FLUOXETINE HCL Inactive ZANTAC 75 75 MG ORAL TABLET take 1 po BID ZANTAC 75 75 MG ORAL TABLET 009643 RANITIDINE HCL Inactive PREDNISONE 20 MG ORAL TABLET 2 tabs daily for 3 days, 1 tab daily for 3 days, 1/2 tab daily for 2 days PREDNISONE 20 MG ORAL T ABLET 356018 PREDNISONE Inactive ZITHROMAX 250 MG ORAL TABLET 2 po today, then 1 po q days 2-5 20 11/06/16 ZITHROMAX 250 MG ORAL TABLET 892036 AZITHROMYCIN [place] ctive ZITHROMAX 250 MG ORAL TABLET 2 po today, then 1 po q days 2-5 20 12/07/06 ZITHROMAX 250 MG ORAL TABLET 811226 AZITHROMYCIN [place] ctive Immunizations Vaccine Administration Date [...] Value Unit Range Description Lab Report: Chlamydia/GC APTIMA/85248 - Lab chlamydia DNA probe NOT DETECTED NOT DETECTED Lab Report: Chlamydia/GC APTIMA/98344 - Microbiology Neisseria gonorrhoeae DNA probe NOT DETECTED NO T DETECTED Lab Report: Comp. Metabolic Panel - Chem istry sodium, serum 141 mmol/L 185-247 3594/11/22 carbon dioxide, venous blood 25.2 mmol/L 21.0-32 .0 potassium, serum 3.8 mmol/L 3.5-5.2 chloride, serum 104 mmol/L 98-107 blood glucose 95 mg/dL 65-110 urea nitrogen, blood 15 mg/dL 7-18 creatinine, serum 0.79 mg/dL 0.60-1.30 alanine aminotransferase (SGPT), serum 28 U/L 10-55 aspartate aminotransferase (SGOT), serum 17 U/L 15-45 calcium, serum 8.9 mg/dL 8.5-10.1 bilirubin, serum, total 0.30 mg/dL 0.20-1.00 sodium, serum 139 mmol/L 568-468 6177/09/06 carbon dioxide, venous blood 25.3 mmol/L 21.0-32 [...] 5.0-8.5 Encounters Code Encounter Date Provider Facility [facility]-75871 Level 3 Est. Patient 10:07:39 OIL MIXER Cale morris [facility]30392 Level 3 Est. Patient 11:35:37 OIL MIXER Cale morris [facility]-04247 Level 4 Est. Patient 11:10:55 CDT Shannan Lazcano [facility]-07698 Level 4 Est. Patient 14:07:40 CDT [facility]-16633 Level 4 Est. Patient 13:54:09 CDT Adrián dyson MD [facility]96733 Level 3 Est. Patient 09:22:14 CDT Adrián dyson MD [facility]40595 Level 3 Est. Patient 08:59:31 CDT Adrián dyson MD [facility]39091 Level 3 Est. Patient 11:58:31 CDT Adrián dyson MD [facility]-19616 Level 3 Est. Patient 09:06:35 CDT Adrián dyson MD [facility]-77912 Level 3 Est. Patient 09:18:45 CDT Adrián dyson MD [facility]-43415 Level 3 Est. Patient 09:13:22 CDT Adrián dyson MD [facility]-29229 Level 3 Est. Patient 18:04:31 OIL MIXER Adrián dyson MD [facility]-23450 Level 4 Est. Patient 14:00:53 CDT Uriel bhatia [facility] CPT-36609 Level 3 Est. Patient 20:00:09 CDT Terry Elisha Sachin jenkins DO [facility] CPT-59600 Level 3 Est. Patient 08:45:08 CDT Uriel bhatia [facility] CPT-37579 Level 3 Est. Patient 09:09:26 CDT Uriel bhatia [facility] CPT-62643 Level 3 Est. Patient 16:32:31 CDT Adrián dyson MD [facility] CPT-02764 Level 3 Est. Patient 09:35:27 OIL MIXER Norman fuentes [facility] CPT-33504 Level 2 Est. Patient 16:51:37 OIL MIXER Adrián dyson MD [facility] CPT-97057 Level 3 Est. Patient 10:00:11 OIL MIXER Ace Arriaza MD [facility] Procedures Code Procedure Name Date Entry Date Standard Desc ription CPT-46674 First Vx - Ix admin via ID I M or jet injects without counseling by physician 14:18:02 CDT CPT-92093 Gardasil 9 Intramuscular Suspension 1 4:18:02 CDT CPT-J3420 Vitamin B12 1000mcg (Cyanocobalamin) 16:30:23 CDT CPT-93049 Abx/Therapy Injection 16:30:23 CDT CPT-J3420 Vitamin B12 1000mcg (Cyanocobalamin) 16:09:42 CDT CPT-46916 Abx/Therapy Injection 16:09:42 CDT CPT-J3420 Vitamin B12 1000mcg (Cyanocobalamin) 15:22:47 CDT CPT-56069 Abx/Therapy Injection 15:22:47 CDT CPT-J3420 Vitamin B12 1000mcg (Cyanocobalamin) 17:00:35 CDT CPT-38877 Abx/Therapy Injection 17:00:35 CDT CPT-70504 First Vx - Ix admin via ID I M or jet injects without counseling by physician 16:04:17 OIL MIXER CPT-62100 Gardasil 9 Intramuscular Suspension 1 6:04:17 OIL MIXER CPT-63035 Venipuncture Draw Fee 09:40:26 CDT CPT-82742 [place] - LAB USE ONLY 09:40:26 CDT 11/30 CPT-22854 CBC with Diff - LAB USE ONLY 09:40:26 CDT 2 CPT-45574 Addl Vx - Ix admin via ID IM or jet injects without counseling by physician 09:40:21 CDT CPT-45268 Menactra Intramuscular Injectable 09:40:21 CDT CPT-17036 Addl Vx - Ix admin via ID IM or jet injects without counseling by physician 09:40:21 CDT CPT-85063 Gardasil 9 Intramuscular Suspension 0 9:40:21 CDT CPT-70622 First Vx - Ix admin via ID I M or jet injects without counseling by physician 09:40:21 CDT CPT-91400 Havrix Intramuscular Suspension 720 EL U /0.5ML 09:40:21 CDT CPT-J2930 Solu Medrol 125 mg (Methyl Prednisolone Sodium Succinate) 09:43:26 CDT CPT-81623 Abx/Therapy Injection 09:43:26 CDT CPT-J2930 Solu Medrol 125 mg (Methyl Prednisolone Sodium Succinate) 09:05:55 CDT CPT-98302 Abx/Therapy Injection 09:05:55 CDT CPT-36497 Venipuncture Draw Fee 14:01:33 CDT CPT-66699 EKG Trac and Interp 11:22:04 CDT CPT-33847 Venipuncture Draw Fee 10:53:35 CDT CPT-J2930 Solu Medrol 125 mg (Methyl Prednisolone Sodium Succinate) 09:29:26 CDT CPT-87307 Abx/Therapy Injection 09:29:26 CDT CPT-Cryo Cryotherapy 16:51:37 OIL MIXER
--- OUTSIDE RECORDS SUMMARY | 2019-07-22 19:39 | XMS REPORT | Clinical Summary ---
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 Other atopic dermatitis and related conditions Contraceptive [...] 1 TABLET BY MOUTH DAILY DIRECTED SULFAMETHOXAZOLE-TRIMETHOPRIM [id number] No Longer Active Madelin Hatch MD Active BUSPIRONE HCL 7.5 MG ORAL TABLET PRN BUSPIR ONE HCL 33101995927 Active Madelin Hatch MD Active PROZAC 20 MG ORAL CAPSULE PRN FLUOXETINE HCL 0077 3365960 Active Madelin Hatch MD Active ABSORICA 20 MG ORAL CAPSULE 1 tablet daily ISOT RETINOIN 07693220816 Active Madelin Hatch MD Active ACZONE 5 % EXTERNAL GEL apply once daily to face 5 DAPSONE 07969283081 No Longer Active Madelin Hatch MD Active PROZAC 10 MG ORAL CAPSULE Take 1 tab daily for 1 week. Then increase to 20mg daily. FLUOXETINE HCL 73109500482 No Longer Active Yulissa ortega Cristina STRICKLANDN Active CITALOPRAM HYDROBROMIDE 20 MG ORAL TABLET take 1 tab p o qday for depresion and anxiety. CITALOPRAM HYDROBROMIDE 36444548316 No L onger Active Shannan Evans APRN Active CYANOCOBALAMIN 1000 MCG/ML INJECTION SOLUTION 1 inject ion weekly for 1 month, than 1 a month for 2 months. recheck lab CYANOCO BALAMIN 09295394093 No Longer Active Shannan Evans APRN Active ULTRAM 50 MG ORAL TABLET 1 TAB PO Q 6 HRS PRN HEADACHE TRAMADOL HCL 51952885198 Active Adrián Varghese MD Active ULTRAM 50 MG ORAL TABLET take 1 tab po q 6 hrs prn headache pain TRAMADOL HCL 47336668257 No Longer Active Adrián Varghese MD Active CLINDAMYCIN PHOSPHATE 2 % VAGINAL CREAM apply cream to acne BID prn CLINDAMYCIN PHOSPHATE 64820373150 No Longer Active Adrián dyson MD Active MINOCYCLINE HCL 100 MG ORAL CAPSULE take one po BID 13/11/25 MINOCYCLINE HCL 48060313947 No Longer Active Adrián Varghese MD A ctive TRI-SPRINTEC 0.18/0.215/0.25 MG-35 MCG ORAL TABLET 1 po qd a s directed NORGESTIM-ETH ESTRAD TRIPHASIC 60662756306 Active Madelin Hatch MD Active ZITHROMAX 250 MG ORAL TABLET 2 po today, then 1 po q days 2-5 20 12/07/06 AZITHROMYCIN 84405959086 No Longer Active Adrián Varghese MD Active ZITHROMAX 250 MG ORAL TABLET 2 po today, then 1 po q days 2-5 20 11/06/16 AZITHROMYCIN 32929556274 No Longer Active Adrián Varghese MD Active PREDNISONE 20 MG ORAL TABLET 2 tabs daily for 3 days, 1 tab daily for 3 days, 1/2 tab daily for 2 days PREDNISONE 51364491757 No Longer Active Adrián Varghese MD Active ZANTAC 75 75 MG ORAL TABLET take 1 po BID RANIT IDINE HCL 45545181065 No Longer Active Uriel BOYD Active BENZACLIN 1-5 % EXTERNAL GEL apply to skin BID prn for acne 2012 CLINDAMYCIN PHOS-BENZOYL PEROX 96680225375 No Longer Active Uriel BOYD Active BENZACLIN 1-5 % EXTERNAL GEL apply to skin BID prn for acne 2012 BENZACLIN 1-5 % EXTERNAL GEL 456416 CLINDAMYCIN PHOS-BE NZOYL PEROX Inactive MINOCYCLINE HCL 100 MG ORAL CAPSULE take one po BID 13/11/25 MINOCYCLINE HCL 100 MG ORAL CAPSULE 853139 MINOCYCLINE HCL Inac tive CLINDAMYCIN PHOSPHATE 2 % VAGINAL CREAM apply cream to acne BID prn CLINDAMYCIN PHOSPHATE 2 % VAGINAL CREAM 752563 CLINDAMY ANGELIA PHOSPHATE Inactive ULTRAM 50 MG ORAL TABLET take 1 tab po q 6 hrs prn headache pain ULTRAM 50 MG ORAL TABLET 311857 TRAMADOL HCL Inactiv e CYANOCOBALAMIN 1000 MCG/ML INJECTION SOLUTION 1 inject ion weekly for 1 month, than 1 a month for 2 months. recheck lab CYANOCOBALAMIN 1000 MCG/ML INJECTION SOLUTION 018443 CYANOCOBALAMIN Inactive CITALOPRAM HYDROBROMIDE 20 MG ORAL TABLET take 1 tab p o qday for depresion and anxiety. CITALOPRAM HYDROBROMIDE 20 MG ORAL TABLET 614355 CITALOPRAM HYDROBROMIDE Inactive PROZAC 10 MG ORAL CAPSULE Take 1 tab daily for 1 week. Then increase to 20mg daily. PROZAC 10 MG ORAL CAPSULE 494835 FLUOXETINE HCL Inactive ACZONE 5 % EXTERNAL GEL apply once daily to face 07/22 ACZONE 5 % EXTERNAL GEL 072933 DAPSONE Inactive SULFAMETHOXAZOLE-TRIMETHOPRIM 800-160 MG ORAL TABLET T QUINCY 1 TABLET BY MOUTH DAILY DIRECTED SULFAMETHOXAZOLE-TRI METHOPRIM 800-160 MG ORAL TABLET 501806 SULFAMETHOXAZOLE-TRIMETHOPRIM Inactive ZANTAC 75 75 MG ORAL TABLET take 1 po BID ZANTAC 75 75 MG ORAL TABLET 767645 RANITIDINE HCL Inactive PREDNISONE 20 MG ORAL TABLET 2 tabs daily for 3 days, 1 tab daily for 3 days, 1/2 tab daily for 2 days PREDNISONE 20 MG ORAL T ABLET 387403 PREDNISONE Inactive ZITHROMAX 250 MG ORAL TABLET 2 po today, then 1 po q days 2-5 20 11/06/16 ZITHROMAX 250 MG ORAL TABLET 670320 AZITHROMYCIN [place] ct[facility] ZITHROMAX 250 MG ORAL TABLET 2 po today, then 1 po q days 2-5 20 12/07/06 ZITHROMAX 250 MG ORAL TABLET 710747 AZITHROMYCIN [place] ctive Immunizations Vaccine Administration Date [...] Value Unit Range Description Lab Report: Chlamydia/GC APTIMA/98790 - Lab chlamydia DNA probe NOT DETECTED NOT DETECTED chlamydia DNA probe NOT DETECTED NOT DETECTED Lab Report: Chlamydia/GC APTIMA/95091 - Microbiology Neisseria gonorrhoeae DNA probe NOT DETECTED NO T DETECTED Neisseria gonorrhoeae DNA probe NOT DETECTED NO T DETECTED Lab Report: Comp. Metabolic Panel - Chem istry sodium, serum 141 mmol/L 688-906 4261/11/22 carbon dioxide, venous blood 25.2 mmol/L 21.0-32 .0 potassium, serum 3.8 mmol/L 3.5-5.2 chloride, serum 104 mmol/L 98-107 blood glucose 95 mg/dL 65-110 urea nitrogen, blood 15 mg/dL 7-18 creatinine, serum 0.79 mg/dL 0.60-1.30 alanine aminotransferase (SGPT), serum 28 U/L 10-55 aspartate aminotransferase (SGOT), serum 17 U/L 15-45 calcium, serum 8.9 mg/dL 8.5-10.1 bilirubin, serum, total 0.30 mg/dL 0.20-1.00 sodium, serum 139 mmol/L 352-888 8110/09/06 carbon dioxide, venous blood 25.3 mmol/L 21.0-32 [...] 5.0-8.5 Encounters Code Encounter Date Provider Facility CPT-33574 Level 3 New Patient 12:59:59 CDT Madelin almodovar MD [facility] CPT-50217 Level 3 Est. 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 CPT-05263 Level 3 Est. 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 CPT-95691 Level 4 Est. Patient 11:10:55 CDT Shannan Are [facility] CPT-81589 Level 4 Est. Patient 14:07:40 CDT Shannan Are ll [facility] CPT-26548 Level 4 Est. Patient 13:54:09 CDT Adrián dyson MD [facility]-37960 Level 3 Est. Patient 09:22:14 CDT Adrián dyson MD [facility]-67385 Level 3 Est. Patient 08:59:31 CDT Adrián dyson MD [facility]-45955 Level 3 Est. Patient 11:58:31 CDT Adrián dyson MD [facility]-63493 Level 3 Est. Patient 09:06:35 CDT Adrián dyson MD [facility]-06929 Level 3 Est. Patient 09:18:45 CDT Adrián dyson MD [facility] CPT-19180 Level 3 Est. Patient 09:13:22 CDT Adrián dyson MD [facility]-66610 Level 3 Est. Patient 18:04:31 BURR MILL OPERATOR Adrián dyson MD [facility] CPT-08048 Level 4 Est. Patient 14:00:53 CDT Uriel bhatia [facility] CPT-06054 Level 3 Est. Patient 20:00:09 CDT Terry jenkins DO [facility] CPT-65906 Level 3 Est. Patient 08:45:08 CDT Uriel bhatia [facility]-31534 Level 3 Est. Patient 09:09:26 CDT Uriel bhatia [facility] CPT-74438 Level 3 Est. Patient 16:32:31 CDT Adrián dyson MD [facility]-86456 Level 3 Est. Patient 09:35:27 BURR MILL OPERATOR Norman BOYD [facility] CPT-89645 Level 2 Est. Patient 16:51:37 BURR MILL OPERATOR Adrián dyson MD [facility] CPT-28947 Level 3 Est. Patient 10:00:11 BURR MILL OPERATOR Ace Arriaza MD [facility] Procedures Code Procedure Name Date Entry Date Standard Desc ription CPT-45840 Addl Vx - Ix admin via ID IM or jet injects without counseling by physician 15:35:10 CDT CPT-85976 Meningococcal B, recombinant vaccine 15:35:10 CDT CPT-35988 First Vx - Ix admin via ID I M or jet injects without counseling by physician 15:35:10 CDT CPT-53367 Havrix Intramuscular Suspension 720 EL U /0.5ML 15:35:10 CDT CPT-20955 First Vx - Ix admin via ID I M or jet injects without counseling by physician 14:18:02 CDT CPT-71521 Gardasil 9 Intramuscular Suspension 1 4:18:02 CDT CPT-J3420 Vitamin B12 1000mcg (Cyanocobalamin) 16:30:23 CDT CPT-98953 Abx/Therapy Injection 16:30:23 CDT CPT-J3420 Vitamin B12 1000mcg (Cyanocobalamin) 16:09:42 CDT CPT-82410 Abx/Therapy Injection 16:09:42 CDT CPT-J3420 Vitamin B12 1000mcg (Cyanocobalamin) 15:22:47 CDT CPT-68708 Abx/Therapy Injection 15:22:47 CDT CPT-J3420 Vitamin B12 1000mcg (Cyanocobalamin) 17:00:35 CDT CPT-74479 Abx/Therapy Injection 17:00:35 CDT CPT-01037 First Vx - Ix admin via ID I M or jet injects without counseling by physician 16:04:17 BURR MILL OPERATOR CPT-99745 Gardasil 9 Intramuscular Suspension 1 6:04:17 BURR MILL OPERATOR CPT-43992 Venipuncture Draw Fee 09:40:26 CDT CPT-33899 [facility] - LAB USE ONLY 09:40:26 CDT 11/30 CPT-22591 CBC with Diff - LAB USE ONLY 09:40:26 CDT 2 CPT-75858 Addl Vx - Ix admin via ID IM or jet injects without counseling by physician 09:40:21 CDT CPT-29259 Menactra Intramuscular Injectable 09:40:21 CDT CPT-51981 Addl Vx - Ix admin via ID IM or jet injects without counseling by physician 09:40:21 CDT CPT-67092 Gardasil 9 Intramuscular Suspension 0 9:40:21 CDT CPT-94891 First Vx - Ix admin via ID I M or jet injects without counseling by physician 09:40:21 CDT CPT-55850 Havrix Intramuscular Suspension 720 EL U /0.5ML 09:40:21 CDT CPT-J2930 Solu Medrol 125 mg (Methyl Prednisolone Sodium Succinate) 09:43:26 CDT CPT-13242 Abx/Therapy Injection 09:43:26 CDT CPT-J2930 Solu Medrol 125 mg (Methyl Prednisolone Sodium Succinate) 09:05:55 CDT CPT-34409 Abx/Therapy Injection 09:05:55 CDT CPT-14041 Venipuncture Draw Fee 14:01:33 CDT CPT-38936 EKG Trac and Interp 11:22:04 CDT CPT-39772 Venipuncture Draw Fee 10:53:35 CDT CPT-J2930 Solu Medrol 125 mg (Methyl Prednisolone Sodium Succinate) 09:29:26 CDT CPT-85620 Abx/Therapy Injection 09:29:26 CDT CPT-Cryo Cryotherapy 16:51:37 BURR MILL OPERATOR
--- OUTSIDE RECORDS SUMMARY | 2019-07-22 19:39 | XMS REPORT | Clinical Summary ---
[...] 1 TABLET BY MOUTH DAILY DIRECTED SULFAMETHOXAZOLE-TRIMETHOPRIM 52985276440 No Longer Active Madelin Hatch MD Active BUSPIRONE HCL 7.5 MG ORAL TABLET PRN BUSPIR ONE HCL 22875761231 Active Madelin Hatch MD Active PROZAC 20 MG ORAL CAPSULE PRN FLUOXETINE HCL 0077 3082787 Active Madelin Hatch MD Active ABSORICA 20 MG ORAL CAPSULE 1 tablet daily ISOT RETINOIN 67245671313 Active Madelin Hatch MD Active ACZONE 5 % EXTERNAL GEL apply once daily to face 5 DAPSONE 29074347626 No Longer Active Madelin Hatch MD Active PROZAC 10 MG ORAL CAPSULE Take 1 tab daily for 1 week. Then increase to 20mg daily. FLUOXETINE HCL 63894315028 No Longer Active Yulissa an Joeyll POST ANESTHESIA NURSE Active CITALOPRAM HYDROBROMIDE 20 MG ORAL TABLET take 1 tab p o qday for depresion and anxiety. CITALOPRAM HYDROBROMIDE 44469497801 No L onger Active Shannan Evans POST ANESTHESIA NURSE Active CYANOCOBALAMIN 1000 MCG/ML INJECTION SOLUTION 1 inject ion weekly for 1 month, than 1 a month for 2 months. recheck lab CYANOCO BALAMIN 77413550591 No Longer Active Shannan Evans APRN Active ULTRAM 50 MG ORAL TABLET 1 TAB PO Q 6 HRS PRN HEADACHE TRAMADOL HCL 87877213171 Active Adrián Varghese MD Active ULTRAM 50 MG ORAL TABLET take 1 tab po q 6 hrs prn headache pain TRAMADOL HCL 25790955098 No Longer Active Adrián Varghese MD Active CLINDAMYCIN PHOSPHATE 2 % VAGINAL CREAM apply cream to acne BID prn CLINDAMYCIN PHOSPHATE 28106973698 No Longer Active Adrián dyson MD Active MINOCYCLINE HCL 100 MG ORAL CAPSULE take one po BID 20 13/11/25 MINOCYCLINE HCL 92773837073 No Longer Active Adrián Varghese MD A ctive TRI-SPRINTEC 0.18/0.215/0.25 MG-35 MCG ORAL TABLET 1 po qd a s directed NORGESTIM-ETH ESTRAD TRIPHASIC 98149346681 Active Madelin Hatch MD Active ZITHROMAX 250 MG ORAL TABLET 2 po today, then 1 po q days 2-5 20 12/07/06 AZITHROMYCIN 31457602729 No Longer Active Adrián Varghese MD Active ZITHROMAX 250 MG ORAL TABLET 2 po today, then 1 po q days 2-5 20 11/06/16 AZITHROMYCIN 09329090781 No Longer Active Adrián Varghese MD Active PREDNISONE 20 MG ORAL TABLET 2 tabs daily for 3 days, 1 tab daily for 3 days, 1/2 tab daily for 2 days PREDNISONE 42911069670 No Longer Active Adrián Varghese MD Active ZANTAC 75 75 MG ORAL TABLET take 1 po BID RANIT IDINE HCL 14410540528 No Longer Active Uriel BOYD Active BENZACLIN 1-5 % EXTERNAL GEL apply to skin BID prn for acne 2012 CLINDAMYCIN PHOS-BENZOYL PEROX 92604209277 No Longer Active Uriel BOYD Active BENZACLIN 1-5 % EXTERNAL GEL apply to skin BID prn for acne 2012 BENZACLIN 1-5 % EXTERNAL GEL 442278 CLINDAMYCIN PHOS-BE NZOYL PEROX Inactive MINOCYCLINE HCL 100 MG ORAL CAPSULE take one po BID 13/11/25 MINOCYCLINE HCL 100 MG ORAL CAPSULE 286039 MINOCYCLINE HCL Inac tive CLINDAMYCIN PHOSPHATE 2 % VAGINAL CREAM apply cream to acne BID prn CLINDAMYCIN PHOSPHATE 2 % VAGINAL CREAM 520664 CLINDAMY ANGELIA PHOSPHATE Inactive ULTRAM 50 MG ORAL TABLET take 1 tab po q 6 hrs prn headache pain ULTRAM 50 MG ORAL TABLET 279974 TRAMADOL HCL Inactiv e CYANOCOBALAMIN 1000 MCG/ML INJECTION SOLUTION 1 inject ion weekly for 1 month, than 1 a month for 2 months. recheck lab CYANOCOBALAMIN 1000 MCG/ML INJECTION SOLUTION 857191 CYANOCOBALAMIN Inactive CITALOPRAM HYDROBROMIDE 20 MG ORAL TABLET take 1 tab p o qday for depresion and anxiety. CITALOPRAM HYDROBROMIDE 20 MG ORAL TABLET 812551 CITALOPRAM HYDROBROMIDE Inactive PROZAC 10 MG ORAL CAPSULE Take 1 tab daily for 1 week. Then increase to 20mg daily. PROZAC 10 MG ORAL CAPSULE 491536 FLUOXETINE HCL Inactive ACZONE 5 % EXTERNAL GEL apply once daily to face 07/22 ACZONE 5 % EXTERNAL GEL 752974 DAPSONE Inactive SULFAMETHOXAZOLE-TRIMETHOPRIM 800-160 MG ORAL TABLET T QUINCY 1 TABLET BY MOUTH DAILY DIRECTED SULFAMETHOXAZOLE-TRI METHOPRIM 800-160 MG ORAL TABLET 918148 SULFAMETHOXAZOLE-TRIMETHOPRIM Inactive ZANTAC 75 75 MG ORAL TABLET take 1 po BID ZANTAC 75 75 MG ORAL TABLET 362692 RANITIDINE HCL Inactive PREDNISONE 20 MG ORAL TABLET 2 tabs daily for 3 days, 1 tab daily for 3 days, 1/2 tab daily for 2 days PREDNISONE 20 MG ORAL T ABLET 871041 PREDNISONE Inactive ZITHROMAX 250 MG ORAL TABLET 2 po today, then 1 po q days 2-5 20 11/06/16 ZITHROMAX 250 MG ORAL TABLET 742995 AZITHROMYCIN [place] ctive ZITHROMAX 250 MG ORAL TABLET 2 po today, then 1 po q days 2-5 20 12/07/06 ZITHROMAX 250 MG ORAL TABLET 144782 AZITHROMYCIN [place] ctive Advance Directives Directive Description [...] Value Unit Range Description Lab Report: Chlamydia/GC APTIMA/24199 - Lab chlamydia DNA probe NOT DETECTED NOT DETECTED chlamydia DNA probe NOT DETECTED NOT DETECTED Lab Report: Chlamydia/GC APTIMA/92952 - Microbiology Neisseria gonorrhoeae DNA probe NOT DETECTED NO T DETECTED Neisseria gonorrhoeae DNA probe NOT DETECTED NO T DETECTED Lab Report: Comp. Metabolic Panel - Chem istry sodium, serum 141 mmol/L 510-243 7533/11/22 carbon dioxide, venous blood 25.2 mmol/L 21.0-32 .0 potassium, serum 3.8 mmol/L 3.5-5.2 chloride, serum 104 mmol/L 98-107 blood glucose 95 mg/dL 65-110 urea nitrogen, blood 15 mg/dL 7-18 creatinine, serum 0.79 mg/dL 0.60-1.30 alanine aminotransferase (SGPT), serum 28 U/L 10-55 aspartate aminotransferase (SGOT), serum 17 U/L 15-45 calcium, serum 8.9 mg/dL 8.5-10.1 bilirubin, serum, total 0.30 mg/dL 0.20-1.00 sodium, serum 139 mmol/L 617-621 3329/09/06 carbon dioxide, venous blood 25.3 mmol/L 21.0-32 [...] 5.0-8.5 Encounters Code Encounter Date Provider Facility CPT-99791 Level 3 New Patient 12:59:59 CDT Madelin almodovar MD [facility] CPT-63005 Level 3 Est. 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 CPT-70584 Level 3 Est. Patient 11:35:37 PROJECT MANAGEMENT ENGINEER Cale morris [facility] CPT-50245 Level 4 Est. Patient 11:10:55 CDT Shannan Are ll [facility] CPT-35243 Level 4 Est. Patient 14:07:40 CDT Shannan Are ll [facility] CPT-61872 Level 4 Est. Patient 13:54:09 CDT Adrián dyson MD [facility]-03154 Level 3 Est. Patient 09:22:14 CDT Adrián dyson MD [facility]-90396 Level 3 Est. Patient 08:59:31 CDT Adrián dyson MD [facility]-89246 Level 3 Est. Patient 11:58:31 CDT Adrián dyson MD [facility] CPT-68629 Level 3 Est. Patient 09:06:35 CDT Adrián dyson MD [facility] CPT-66656 Level 3 Est. Patient 09:18:45 CDT Adrián dyson MD [facility] CPT-58145 Level 3 Est. Patient 09:13:22 CDT Adrián dyson MD [facility]-69581 Level 3 Est. Patient 18:04:31 PROJECT MANAGEMENT ENGINEER Adrián dyson MD [facility] CPT-81396 Level 4 Est. Patient 14:00:53 CDT Uriel bhatia [facility] CPT-81314 Level 3 Est. Patient 20:00:09 CDT Terry jenkins DO [facility] CPT-17134 Level 3 Est. Patient 08:45:08 CDT Uriel bhatia [facility]-47812 Level 3 Est. Patient 09:09:26 CDT Uriel bhatia [facility] CPT-16756 Level 3 Est. Patient 16:32:31 CDT Adrián dyson MD [facility] CPT-34111 Level 3 Est. Patient 09:35:27 PROJECT MANAGEMENT ENGINEER Norman BOYD [facility] CPT-38259 Level 2 Est. Patient 16:51:37 PROJECT MANAGEMENT ENGINEER Adrián dyson MD [facility] CPT-30200 Level 3 Est. Patient 10:00:11 PROJECT MANAGEMENT ENGINEER Ace Arriaza MD [facility] Procedures Code Procedure Name Date Entry Date Standard Desc ription CPT-39835 Addl Vx - Ix admin via ID IM or jet injects without counseling by physician 15:35:10 CDT CPT-37655 Meningococcal B, recombinant vaccine 15:35:10 CDT CPT-97752 First Vx - Ix admin via ID I M or jet injects without counseling by physician 15:35:10 CDT CPT-95107 Havrix Intramuscular Suspension 720 EL U /0.5ML 15:35:10 CDT CPT-12576 First Vx - Ix admin via ID I M or jet injects without counseling by physician 14:18:02 CDT CPT-13214 Gardasil 9 Intramuscular Suspension 1 4:18:02 CDT CPT-J3420 Vitamin B12 1000mcg (Cyanocobalamin) 16:30:23 CDT CPT-73927 Abx/Therapy Injection 16:30:23 CDT CPT-J3420 Vitamin B12 1000mcg (Cyanocobalamin) 16:09:42 CDT CPT-87363 Abx/Therapy Injection 16:09:42 CDT CPT-J3420 Vitamin B12 1000mcg (Cyanocobalamin) 15:22:47 CDT CPT-39665 Abx/Therapy Injection 15:22:47 CDT CPT-J3420 Vitamin B12 1000mcg (Cyanocobalamin) 17:00:35 CDT CPT-68507 Abx/Therapy Injection 17:00:35 CDT CPT-92218 First Vx - Ix admin via ID I M or jet injects without counseling by physician 16:04:17 PROJECT MANAGEMENT ENGINEER CPT-74001 Gardasil 9 Intramuscular Suspension 1 6:04:17 PROJECT MANAGEMENT ENGINEER CPT-40916 Venipuncture Draw Fee 09:40:26 CDT CPT-09338 [facility] - LAB USE ONLY 09:40:26 CDT 11/30 CPT-17310 CBC with Diff - LAB USE ONLY 09:40:26 CDT 2 CPT-84385 Addl Vx - Ix admin via ID IM or jet injects without counseling by physician 09:40:21 CDT CPT-53345 Menactra Intramuscular Injectable 09:40:21 CDT CPT-13029 Addl Vx - Ix admin via ID IM or jet injects without counseling by physician 09:40:21 CDT CPT-41671 Gardasil 9 Intramuscular Suspension 0 9:40:21 CDT CPT-21847 First Vx - Ix admin via ID I M or jet injects without counseling by physician 09:40:21 CDT CPT-90461 Havrix Intramuscular Suspension 720 EL U /0.5ML 09:40:21 CDT CPT-J2930 Solu Medrol 125 mg (Methyl Prednisolone Sodium Succinate) 09:43:26 CDT CPT-43973 Abx/Therapy Injection 09:43:26 CDT CPT-J2930 Solu Medrol 125 mg (Methyl Prednisolone Sodium Succinate) 09:05:55 CDT CPT-09266 Abx/Therapy Injection 09:05:55 CDT CPT-75052 Venipuncture Draw Fee 14:01:33 CDT CPT-69801 EKG Trac and Interp 11:22:04 CDT CPT-42374 Venipuncture Draw Fee 10:53:35 CDT CPT-J2930 Solu Medrol 125 mg (Methyl Prednisolone Sodium Succinate) 09:29:26 CDT CPT-94070 Abx/Therapy Injection 09:29:26 CDT CPT-Cryo Cryotherapy 16:51:37 PROJECT MANAGEMENT ENGINEER
--- OUTSIDE RECORDS SUMMARY | 2019-07-22 19:39 | XMS REPORT | Clinical Summary ---
Author Author Yovanny, Clarisa Christopher Organization [facility] Address Unknown Phone Unavailable Allergies, [...] Dermatitis, atopic 691.8 Active Cale Lopez [employer] Other atopic dermatitis and related conditions Contraceptive [...] 1 TABLET BY MOUTH DAILY DIRECTED SULFAMETHOXAZOLE-TRIMETHOPRIM 92381212383 No Longer Active Madelin Hatch MD Active BUSPIRONE HCL 7.5 MG ORAL TABLET PRN BUSPIR ONE HCL 87754213836 Active Madelin Hatch MD Active PROZAC 20 MG ORAL CAPSULE PRN FLUOXETINE HCL 0077 7440844 Active Madelin Hatch MD Active ABSORICA 20 MG ORAL CAPSULE 1 tablet daily ISOT RETINOIN 22258453890 Active Madelin Hatch MD Active ACZONE 5 % EXTERNAL GEL apply once daily to face 5 DAPSONE 96179515381 No Longer Active Madelin Hatch MD Active PROZAC 10 MG ORAL CAPSULE Take 1 tab daily for 1 week. Then increase to 20mg daily. FLUOXETINE HCL 59258215041 No Longer Active Yulissa ortega Cristina STRICKLANDN Active CITALOPRAM HYDROBROMIDE 20 MG ORAL TABLET take 1 tab p o qday for depresion and anxiety. CITALOPRAM HYDROBROMIDE 63358970816 No L onger Active Shannan Evans APRN Active CYANOCOBALAMIN 1000 MCG/ML INJECTION SOLUTION 1 inject ion weekly for 1 month, than 1 a month for 2 months. recheck lab CYANOCO BALAMIN 29587238317 No Longer Active Shannan Evans APRN Active ULTRAM 50 MG ORAL TABLET 1 TAB PO Q 6 HRS PRN HEADACHE TRAMADOL HCL 62090223122 Active Adrián Varghese MD Active ULTRAM 50 MG ORAL TABLET take 1 tab po q 6 hrs prn headache pain TRAMADOL HCL 95470489231 No Longer Active Adrián Varghese MD Active CLINDAMYCIN PHOSPHATE 2 % VAGINAL CREAM apply cream to acne BID prn CLINDAMYCIN PHOSPHATE 38443663537 No Longer Active Adrián dyson MD Active MINOCYCLINE HCL 100 MG ORAL CAPSULE take one po BID 13/11/25 MINOCYCLINE HCL 99849640686 No Longer Active Adrián Varghese MD A ctive TRI-SPRINTEC 0.18/0.215/0.25 MG-35 MCG ORAL TABLET 1 po qd a s directed NORGESTIM-ETH ESTRAD TRIPHASIC 66846964361 Active Madelin Hatch MD Active ZITHROMAX 250 MG ORAL TABLET 2 po today, then 1 po q days 2-5 20 12/07/06 AZITHROMYCIN 03227074514 No Longer Active Adrián Varghese MD Active ZITHROMAX 250 MG ORAL TABLET 2 po today, then 1 po q days 2-5 20 11/06/16 AZITHROMYCIN 22236449081 No Longer Active Adrián Varghese MD Active PREDNISONE 20 MG ORAL TABLET 2 tabs daily for 3 days, 1 tab daily for 3 days, 1/2 tab daily for 2 days PREDNISONE 09778574040 No Longer Active Adrián Varghese MD Active ZANTAC 75 75 MG ORAL TABLET take 1 po BID RANIT IDINE HCL 13827010117 No Longer Active Uriel BOYD Active BENZACLIN 1-5 % EXTERNAL GEL apply to skin BID prn for acne 2012 CLINDAMYCIN PHOS-BENZOYL PEROX 47790386994 No Longer Active Uriel BOYD Active BENZACLIN 1-5 % EXTERNAL GEL apply to skin BID prn for acne 2012 BENZACLIN 1-5 % EXTERNAL GEL 122068 CLINDAMYCIN PHOS-BE NZOYL PEROX Inactive MINOCYCLINE HCL 100 MG ORAL CAPSULE take one po BID 13/11/25 MINOCYCLINE HCL 100 MG ORAL CAPSULE 327293 MINOCYCLINE HCL Inac tive CLINDAMYCIN PHOSPHATE 2 % VAGINAL CREAM apply cream to acne BID prn CLINDAMYCIN PHOSPHATE 2 % VAGINAL CREAM 501928 CLINDAMY ANGELIA PHOSPHATE Inactive ULTRAM 50 MG ORAL TABLET take 1 tab po q 6 hrs prn headache pain ULTRAM 50 MG ORAL TABLET 529793 TRAMADOL HCL Inactiv e CYANOCOBALAMIN 1000 MCG/ML INJECTION SOLUTION 1 inject ion weekly for 1 month, than 1 a month for 2 months. recheck lab CYANOCOBALAMIN 1000 MCG/ML INJECTION SOLUTION 630814 CYANOCOBALAMIN Inactive CITALOPRAM HYDROBROMIDE 20 MG ORAL TABLET take 1 tab p o qday for depresion and anxiety. CITALOPRAM HYDROBROMIDE 20 MG ORAL TABLET 745191 CITALOPRAM HYDROBROMIDE Inactive PROZAC 10 MG ORAL CAPSULE Take 1 tab daily for 1 week. Then increase to 20mg daily. PROZAC 10 MG ORAL CAPSULE 058793 FLUOXETINE HCL Inactive ACZONE 5 % EXTERNAL GEL apply once daily to face 07/22 ACZONE 5 % EXTERNAL GEL 988674 DAPSONE Inactive SULFAMETHOXAZOLE-TRIMETHOPRIM 800-160 MG ORAL TABLET T QUINCY 1 TABLET BY MOUTH DAILY DIRECTED SULFAMETHOXAZOLE-TRI METHOPRIM 800-160 MG ORAL TABLET 467798 SULFAMETHOXAZOLE-TRIMETHOPRIM Inactive ZANTAC 75 75 MG ORAL TABLET take 1 po BID ZANTAC 75 75 MG ORAL TABLET 616630 RANITIDINE HCL Inactive PREDNISONE 20 MG ORAL TABLET 2 tabs daily for 3 days, 1 tab daily for 3 days, 1/2 tab daily for 2 days PREDNISONE 20 MG ORAL T ABLET 125688 PREDNISONE Inactive ZITHROMAX 250 MG ORAL TABLET 2 po today, then 1 po q days 2-5 20 11/06/16 ZITHROMAX 250 MG ORAL TABLET 196258 AZITHROMYCIN [place] ct[facility] ZITHROMAX 250 MG ORAL TABLET 2 po today, then 1 po q days 2-5 20 12/07/06 ZITHROMAX 250 MG ORAL TABLET 350943 AZITHROMYCIN [place] ct[place] Immunizations Vaccine Administration Date [...] Value Unit Range Description Lab Report: Chlamydia/GC APTIMA/03845 - Lab chlamydia DNA probe NOT DETECTED NOT DETECTED chlamydia DNA probe NOT DETECTED NOT DETECTED Lab Report: Chlamydia/GC APTIMA/16460 - Microbiology Neisseria gonorrhoeae DNA probe NOT DETECTED NO T DETECTED Neisseria gonorrhoeae DNA probe NOT DETECTED NO T DETECTED Lab Report: Comp. Metabolic Panel - Chem istry sodium, serum 141 mmol/L 547-303 0209/11/22 carbon dioxide, venous blood 25.2 mmol/L 21.0-32 .0 potassium, serum 3.8 mmol/L 3.5-5.2 chloride, serum 104 mmol/L 98-107 blood glucose 95 mg/dL 65-110 urea nitrogen, blood 15 mg/dL 7-18 creatinine, serum 0.79 mg/dL 0.60-1.30 alanine aminotransferase (SGPT), serum 28 U/L 10-55 aspartate aminotransferase (SGOT), serum 17 U/L 15-45 calcium, serum 8.9 mg/dL 8.5-10.1 bilirubin, serum, total 0.30 mg/dL 0.20-1.00 sodium, serum 139 mmol/L 956-016 8754/09/06 carbon dioxide, venous blood 25.3 mmol/L 21.0-32 [...] 5.0-8.5 Encounters Code Encounter Date Provider Facility CPT-97223 Level 3 New Patient 12:59:59 CDT Madelin almodovar MD [facility] CPT-95337 Level 3 Est. Patient 10:07:39 DISPLAY DEPARTMENT MANAGER Cale morris [facility] CPT-33199 Level 3 Est. Patient 11:35:37 DISPLAY DEPARTMENT MANAGER Cale morris [facility] CPT-63604 Level 4 Est. Patient 11:10:55 CDT Shannan Are [facility] CPT-65302 Level 4 Est. Patient 14:07:40 CDT Shannan Are ll [facility] CPT-22289 Level 4 Est. Patient 13:54:09 CDT Adrián dyson MD [facility]-30084 Level 3 Est. Patient 09:22:14 CDT Adrián dyson MD [facility]-86746 Level 3 Est. Patient 08:59:31 CDT Adrián dyson MD [facility]-55144 Level 3 Est. Patient 11:58:31 CDT Adrián dyson MD [facility]-41933 Level 3 Est. Patient 09:06:35 CDT Adrián dyson MD [facility]-98349 Level 3 Est. Patient 09:18:45 CDT Adrián dyson MD [facility] CPT-89986 Level 3 Est. Patient 09:13:22 CDT Adrián dyson MD [facility]-67580 Level 3 Est. Patient 18:04:31 DISPLAY DEPARTMENT MANAGER Adrián dyson MD [facility] CPT-75891 Level 4 Est. Patient 14:00:53 CDT Uriel bhatia [facility] CPT-95025 Level 3 Est. Patient 20:00:09 CDT Terry jenkins DO [facility] CPT-92046 Level 3 Est. Patient 08:45:08 CDT Uriel bhatia [facility]-08737 Level 3 Est. Patient 09:09:26 CDT Uriel bhatia [facility] CPT-96886 Level 3 Est. Patient 16:32:31 CDT Adrián dyson MD [facility]-84328 Level 3 Est. Patient 09:35:27 DISPLAY DEPARTMENT MANAGER Norman BOYD [facility] CPT-64561 Level 2 Est. Patient 16:51:37 DISPLAY DEPARTMENT MANAGER Adrián dyson MD [facility] CPT-17078 Level 3 Est. Patient 10:00:11 DISPLAY DEPARTMENT MANAGER Ace Arriaza MD [facility] Procedures Code Procedure Name Date Entry Date Standard Desc ription CPT-51849 Addl Vx - Ix admin via ID IM or jet injects without counseling by physician 15:35:10 CDT CPT-86241 Meningococcal B, recombinant vaccine 15:35:10 CDT CPT-36855 First Vx - Ix admin via ID I M or jet injects without counseling by physician 15:35:10 CDT CPT-71000 Havrix Intramuscular Suspension 720 EL U /0.5ML 15:35:10 CDT CPT-68920 First Vx - Ix admin via ID I M or jet injects without counseling by physician 14:18:02 CDT CPT-85187 Gardasil 9 Intramuscular Suspension 1 4:18:02 CDT CPT-J3420 Vitamin B12 1000mcg (Cyanocobalamin) 16:30:23 CDT CPT-11480 Abx/Therapy Injection 16:30:23 CDT CPT-J3420 Vitamin B12 1000mcg (Cyanocobalamin) 16:09:42 CDT CPT-22632 Abx/Therapy Injection 16:09:42 CDT CPT-J3420 Vitamin B12 1000mcg (Cyanocobalamin) 15:22:47 CDT CPT-18519 Abx/Therapy Injection 15:22:47 CDT CPT-J3420 Vitamin B12 1000mcg (Cyanocobalamin) 17:00:35 CDT CPT-62095 Abx/Therapy Injection 17:00:35 CDT CPT-95506 First Vx - Ix admin via ID I M or jet injects without counseling by physician 16:04:17 DISPLAY DEPARTMENT MANAGER CPT-91109 Gardasil 9 Intramuscular Suspension 1 6:04:17 DISPLAY DEPARTMENT MANAGER CPT-14636 Venipuncture Draw Fee 09:40:26 CDT CPT-78152 [place] [facility] - LAB USE ONLY 09:40:26 CDT 11/30 CPT-92048 CBC with Diff - LAB USE ONLY 09:40:26 CDT 2 CPT-99254 Addl Vx - Ix admin via ID IM or jet injects without counseling by physician 09:40:21 CDT CPT-82258 Menactra Intramuscular Injectable 09:40:21 CDT CPT-70462 Addl Vx - Ix admin via ID IM or jet injects without counseling by physician 09:40:21 CDT CPT-46742 Gardasil 9 Intramuscular Suspension 0 9:40:21 CDT CPT-23626 First Vx - Ix admin via ID I M or jet injects without counseling by physician 09:40:21 CDT CPT-46126 Havrix Intramuscular Suspension 720 EL U /0.5ML 09:40:21 CDT CPT-J2930 Solu Medrol 125 mg (Methyl Prednisolone Sodium Succinate) 09:43:26 CDT CPT-66714 Abx/Therapy Injection 09:43:26 CDT CPT-J2930 Solu Medrol 125 mg (Methyl Prednisolone Sodium Succinate) 09:05:55 CDT CPT-82054 Abx/Therapy Injection 09:05:55 CDT CPT-68178 Venipuncture Draw Fee 14:01:33 CDT CPT-69395 EKG Trac and Interp 11:22:04 CDT CPT-13414 Venipuncture Draw Fee 10:53:35 CDT CPT-J2930 Solu Medrol 125 mg (Methyl Prednisolone Sodium Succinate) 09:29:26 CDT CPT-77744 Abx/Therapy Injection 09:29:26 CDT CPT-Cryo Cryotherapy 16:51:37 DISPLAY DEPARTMENT MANAGER
--- OUTSIDE RECORDS SUMMARY | 2019-07-22 19:39 | XMS REPORT | Clinical Summary ---
[...] Generic Name NDC Status Provider Patient Instruction TRI-SPRINTEC 0.18/0.215/0.25 MG-35 MCG TABS 1 po qd as directed 201 07/04/00 NORGESTIM-ETH ESTRAD TRIPHASIC 17704030297 Active Adrián Varghese MD Active ZITHROMAX 250 MG TAB 2 po today, then 1 po q days 2-5 AZITHROMYCIN 28556547978 No Longer Active Adrián Varghese MD Acti ve ULTRAM 50 MG TAB take 1 tab po q 6 hrs prn headache pain TRAMADOL HCL 87810453124 Active Adrián Varghese MD Active ZITHROMAX 250 MG TAB 2 po today, then 1 po q days 2-5 AZITHROMYCIN 91098329315 No Longer Active Adrián Varghese MD Acti ve CLINDAMYCIN PHOSPHATE 2 % CREA apply cream to acne BID prn CLINDAMYCIN PHOSPHATE 41766625348 Active Adrián Varghese MD Active PREDNISONE 20 MG TAB 2 tabs daily for 3 days, 1 t ab daily for 3 days, 1/2 tab daily for 2 days PREDNISONE 53717576479 No Longer Active Adrián Varghese MD Active ZANTAC 75 75 MG TABS take 1 po BID RANITIDINE H CL 36384958481 No Longer Active Uriel BOYD Active MINOCYCLINE HCL 100 MG CAPS take one po BID MIN OCYCLINE HCL 48974003970 Active Adrián Varghese MD Active BENZACLIN 1-5 % GEL apply to skin BID prn for acne 201 05/05/14 CLINDAMYCIN PHOS-BENZOYL PEROX 39426483165 No Longer Active Uriel BOYD Active BENZACLIN 1-5 % GEL apply to skin BID prn for acne 201 05/05/14 BENZACLIN 1-5 % GEL 669704 CLINDAMYCIN PHOS-BENZOYL PEROX Inactive ZANTAC 75 75 MG TABS take 1 po BID ZANTAC 75 75 MG TABS 726559 RANITIDINE HCL Inactive PREDNISONE 20 MG TAB 2 tabs daily for 3 days, 1 t ab daily for 3 days, 1/2 tab daily for 2 days PREDNISONE 20 MG TAB 184591 PREDNISON E Inactive ZITHROMAX 250 MG TAB 2 po today, then 1 po q days 2-5 ZITHROMAX 250 MG TAB 4746611 AZITHROMYCIN Inactive ZITHROMAX 250 MG TAB 2 po today, then 1 po q days 2-5 ZITHROMAX 250 MG TAB 7212827 AZITHROMYCIN Inactive Immunizations Vaccine Administration Date Value [...] - [phone] [lb_av] Weigh t Measured Encounters Code Encounter Date Provider Facility CPT-14551 Level 3 Est. Patient 11:58:31 CDT Adrián dyson MD [facility] CPT-14958 Level 3 Est. Patient 09:06:35 CDT Adrián dyson MD [facility] CPT-39815 Level 3 Est. Patient 09:18:45 CDT Adrián dyson MD [facility] CPT-79860 Level 3 Est. Patient 09:13:22 CDT Adrián dyson MD [facility] CPT-61464 Level 3 Est. Patient 18:04:31 RECREATIONAL RESORT MANAGER Adrián dyson MD [facility] CPT-91987 Level 4 Est. Patient 14:00:53 CDT Uriel bhatia [facility] CPT-99745 Level 3 Est. Patient 20:00:09 CDT Terry jenkins DO [facility] CPT-14708 Level 3 Est. Patient 08:45:08 CDT Uriel bhatia [facility] CPT-74360 Level 3 Est. Patient 09:09:26 CDT Uriel bhatia [facility] CPT-63713 Level 3 Est. Patient 16:32:31 CDT Adrián dyson MD [facility]-29576 Level 3 Est. Patient 09:35:27 RECREATIONAL RESORT MANAGER Norman BOYD [facility] CPT-99366 Level 2 Est. Patient 16:51:37 RECREATIONAL RESORT MANAGER Adrián dyson MD [facility] CPT-84112 Level 3 Est. Patient 10:00:11 RECREATIONAL RESORT MANAGER Ace Arriaza MD [facility] Procedures Code Procedure Name Date Entry Date Standard Desc ription CPT-J2930 Solu Medrol 125 mg (Methyl Prednisolone Sodium Succinate) 09:43:26 CDT CPT-84812 Abx/Therapy Injection 09:43:26 CDT CPT-J2930 Solu Medrol 125 mg (Methyl Prednisolone Sodium Succinate) 09:05:55 CDT CPT-41091 Abx/Therapy Injection 09:05:55 CDT CPT-53224 Venipuncture Draw Fee 14:01:33 CDT CPT-66387 EKG Trac and Interp 11:22:04 CDT CPT-39115 Venipuncture Draw Fee 10:53:35 CDT CPT-J2930 Solu Medrol 125 mg (Methyl Prednisolone Sodium Succinate) 09:29:26 CDT CPT-79761 Abx/Therapy Injection 09:29:26 CDT CPT-Cryo Cryotherapy 16:51:37 RECREATIONAL RESORT MANAGER
--- OUTSIDE RECORDS SUMMARY | 2019-07-22 19:40 | XMS REPORT | Clinical Summary ---
Author Author Yovanny, Clarisa Christopher Organization [facility] Address Unknown Phone Unavailable Allergies, Adverse [...] Then increase to 20mg daily. FLUOXETINE HCL 25889043827 No Longer Active Yulissa Gibbs APRN Active PROZAC 20 MG ORAL CAPSULE Take 1 tab daily FLUO XETINE HCL 75289636573 Active Shannan Gibbs APRN Active BUSPIRONE HCL 7.5 MG ORAL TABLET 1 pill twice daily, for anxiety 20 14/11/05 BUSPIRONE HCL 27298481550 Active Shannan Gibbs APRN Active CITALOPRAM HYDROBROMIDE 20 MG ORAL TABLET take 1 tab p o qday for depresion and anxiety. CITALOPRAM HYDROBROMIDE 49008116143 No L onger Active Shannan Gibbs APRN Active CYANOCOBALAMIN 1000 MCG/ML INJECTION SOLUTION 1 inject ion weekly for 1 month, than 1 a month for 2 months. recheck lab CYANOCO BALAMIN 47352497762 No Longer Active Shannan Gibbs APRN Active ULTRAM 50 MG ORAL TABLET 1 TAB PO Q 6 HRS PRN HEADACHE TRAMADOL HCL 97195509370 Active Adrián Varghese MD Active ULTRAM 50 MG ORAL TABLET take 1 tab po q 6 hrs prn headache pain TRAMADOL HCL 77738866073 No Longer Active Adrián Varghese MD Active CLINDAMYCIN PHOSPHATE 2 % VAGINAL CREAM apply cream to acne BID prn CLINDAMYCIN PHOSPHATE 64733167450 No Longer Active Adrián dyson MD Active MINOCYCLINE HCL 100 MG ORAL CAPSULE take one po BID 20 13/11/25 MINOCYCLINE HCL 51883421596 No Longer Active Adrián Varghese MD A ctive TRI-SPRINTEC 0.18/0.215/0.25 MG-35 MCG ORAL TABLET 1 po qd a s directed NORGESTIM-ETH ESTRAD TRIPHASIC 30132663955 Active Adrián Varghese MD Active ZITHROMAX 250 MG ORAL TABLET 2 po today, then 1 po q days 2-5 20 12/07/06 AZITHROMYCIN 58277237950 No Longer Active Adrián Varghese MD Active ZITHROMAX 250 MG ORAL TABLET 2 po today, then 1 po q days 2-5 20 11/06/16 AZITHROMYCIN 62388463478 No Longer Active Adrián Varghese MD Active PREDNISONE 20 MG ORAL TABLET 2 tabs daily for 3 days, 1 tab daily for 3 days, 1/2 tab daily for 2 days PREDNISONE 08847378257 No Longer Active Adrián Varghese MD Active ZANTAC 75 75 MG ORAL TABLET take 1 po BID RANIT IDINE HCL 79427429743 No Longer Active Uriel BOYD Active BENZACLIN 1-5 % EXTERNAL GEL apply to skin BID prn for acne 2012 CLINDAMYCIN PHOS-BENZOYL PEROX 16208852411 No Longer Active Uriel BOYD Active BENZACLIN 1-5 % EXTERNAL GEL apply to skin BID prn for acne 2012 BENZACLIN 1-5 % EXTERNAL GEL 330708 CLINDAMYCIN PHOS-BE NZOYL PEROX Inactive MINOCYCLINE HCL 100 MG ORAL CAPSULE take one po BID 13/11/25 MINOCYCLINE HCL 100 MG ORAL CAPSULE 664311 MINOCYCLINE HCL Inac tive CLINDAMYCIN PHOSPHATE 2 % VAGINAL CREAM apply cream to acne BID prn CLINDAMYCIN PHOSPHATE 2 % VAGINAL CREAM 293799 CLINDAMY ANGELIA PHOSPHATE Inactive ULTRAM 50 MG ORAL TABLET take 1 tab po q 6 hrs prn headache pain ULTRAM 50 MG ORAL TABLET 704773 TRAMADOL HCL Inactiv e CYANOCOBALAMIN 1000 MCG/ML INJECTION SOLUTION 1 inject ion weekly for 1 month, than 1 a month for 2 months. recheck lab CYANOCOBALAMIN 1000 MCG/ML INJECTION SOLUTION 889979 CYANOCOBALAMIN Inactive CITALOPRAM HYDROBROMIDE 20 MG ORAL TABLET take 1 tab p o qday for depresion and anxiety. CITALOPRAM HYDROBROMIDE 20 MG ORAL TABLET 365723 CITALOPRAM HYDROBROMIDE Inactive PROZAC 10 MG ORAL CAPSULE Take 1 tab daily for 1 week. Then increase to 20mg daily. PROZAC 10 MG ORAL CAPSULE 348121 FLUOXETINE HCL Inactive ZANTAC 75 75 MG ORAL TABLET take 1 po BID ZANTAC 75 75 MG ORAL TABLET 408832 RANITIDINE HCL Inactive PREDNISONE 20 MG ORAL TABLET 2 tabs daily for 3 days, 1 tab daily for 3 days, 1/2 tab daily for 2 days PREDNISONE 20 MG ORAL T ABLET 104791 PREDNISONE Inactive ZITHROMAX 250 MG ORAL TABLET 2 po today, then 1 po q days 2-5 20 11/06/16 ZITHROMAX 250 MG ORAL TABLET 874985 AZITHROMYCIN [place] ctive ZITHROMAX 250 MG ORAL TABLET 2 po today, then 1 po q days 2-5 20 12/07/06 ZITHROMAX 250 MG ORAL TABLET 939665 AZITHROMYCIN [place] ctive Immunizations Vaccine Administration Date [...] Value Unit Range Description Lab Report: Chlamydia/GC APTIMA/19296 - Lab chlamydia DNA probe NOT DETECTED NOT DETECTED Lab Report: Chlamydia/GC APTIMA/29883 - Microbiology Neisseria gonorrhoeae DNA probe NOT DETECTED NO T DETECTED Lab Report: Comp. Metabolic Panel - Chem istry sodium, serum 141 mmol/L 613-518 5889/11/22 carbon dioxide, venous blood 25.2 mmol/L 21.0-32 .0 potassium, serum 3.8 mmol/L 3.5-5.2 chloride, serum 104 mmol/L 98-107 blood glucose 95 mg/dL 65-110 urea nitrogen, blood 15 mg/dL 7-18 creatinine, serum 0.79 mg/dL 0.60-1.30 alanine aminotransferase (SGPT), serum 28 U/L 10-55 aspartate aminotransferase (SGOT), serum 17 U/L 15-45 calcium, serum 8.9 mg/dL 8.5-10.1 bilirubin, serum, total 0.30 mg/dL 0.20-1.00 sodium, serum 139 mmol/L 749-788 2692/09/06 carbon dioxide, venous blood 25.3 mmol/L 21.0-32 [...] 5.0-8.5 Encounters Code Encounter Date Provider Facility [facility]-06704 Level 3 Est. Patient 10:07:39 HEPATOLOGIST Cale morris [facility]02070 Level 3 Est. Patient 11:35:[address] [facility]-36945 Level 4 Est. Patient 11:10:55 CDT Shannan Lazcano [facility]-13731 Level 4 Est. Patient 14:07:40 [facility]T [facility]06516 Level 4 Est. Patient 13:54:09 CDT Adrián dyson MD [facility]17020 Level 3 Est. Patient 09:22:14 CDT Adrián dyson MD [facility]54382 Level 3 Est. Patient 08:59:31 CDT Adrián dyson MD [facility]05321 Level 3 Est. Patient 11:58:31 CDT Adrián dyson MD [facility]-79959 Level 3 Est. Patient 09:06:35 CDT Adrián dyson MD [facility]-52207 Level 3 Est. Patient 09:18:45 CDT Adrián dyson MD [facility]-23338 Level 3 Est. Patient 09:13:22 CDT Adrián dyson MD [facility]-63763 Level 3 Est. Patient 18:04:31 HEPATOLOGIST Adrián dyson MD [facility]-93637 Level 4 Est. Patient 14:00:53 CDT Uriel bhatia [facility] CPT-55406 Level 3 Est. Patient 20:00:09 CDT Terry Elisha Sachin jenkins DO [facility] CPT-90819 Level 3 Est. Patient 08:45:08 CDT Uriel bhatia [facility] CPT-03328 Level 3 Est. Patient 09:09:26 CDT Uriel bhatia [facility] CPT-45887 Level 3 Est. Patient 16:32:31 CDT Adrián dyson MD [facility] CPT-33599 Level 3 Est. Patient 09:35:27 HEPATOLOGIST Norman fuentes [facility] CPT-28066 Level 2 Est. Patient 16:51:37 HEPATOLOGIST Adrián dyson MD [facility] CPT-74940 Level 3 Est. Patient 10:00:11 HEPATOLOGIST Ace Arriaza MD [facility] Procedures Code Procedure Name Date Entry Date Standard Desc ription CPT-77269 First Vx - Ix admin via ID I M or jet injects without counseling by physician 14:18:02 CDT CPT-69631 Gardasil 9 Intramuscular Suspension 1 4:18:02 CDT CPT-J3420 Vitamin B12 1000mcg (Cyanocobalamin) 16:30:23 CDT CPT-68625 Abx/Therapy Injection 16:30:23 CDT CPT-J3420 Vitamin B12 1000mcg (Cyanocobalamin) 16:09:42 CDT CPT-73295 Abx/Therapy Injection 16:09:42 CDT CPT-J3420 Vitamin B12 1000mcg (Cyanocobalamin) 15:22:47 CDT CPT-07944 Abx/Therapy Injection 15:22:47 CDT CPT-J3420 Vitamin B12 1000mcg (Cyanocobalamin) 17:00:35 CDT CPT-37581 Abx/Therapy Injection 17:00:35 CDT CPT-70023 First Vx - Ix admin via ID I M or jet injects without counseling by physician 16:04:17 HEPATOLOGIST CPT-42325 Gardasil 9 Intramuscular Suspension 1 6:04:17 HEPATOLOGIST CPT-37853 Venipuncture Draw Fee 09:40:26 CDT CPT-69323 [place] [facility] - LAB USE ONLY 09:40:26 CDT 11/30 CPT-04379 CBC with Diff - LAB USE ONLY 09:40:26 CDT 2 CPT-38518 Addl Vx - Ix admin via ID IM or jet injects without counseling by physician 09:40:21 CDT CPT-56299 Menactra Intramuscular Injectable 09:40:21 CDT CPT-91528 Addl Vx - Ix admin via ID IM or jet injects without counseling by physician 09:40:21 CDT CPT-08730 Gardasil 9 Intramuscular Suspension 0 9:40:21 CDT CPT-96989 First Vx - Ix admin via ID I M or jet injects without counseling by physician 09:40:21 CDT CPT-11466 Havrix Intramuscular Suspension 720 EL U /0.5ML 09:40:21 CDT CPT-J2930 Solu Medrol 125 mg (Methyl Prednisolone Sodium Succinate) 09:43:26 CDT CPT-86477 Abx/Therapy Injection 09:43:26 CDT CPT-J2930 Solu Medrol 125 mg (Methyl Prednisolone Sodium Succinate) 09:05:55 CDT CPT-57988 Abx/Therapy Injection 09:05:55 CDT CPT-42470 Venipuncture Draw Fee 14:01:33 CDT CPT-48560 EKG Trac and Interp 11:22:04 CDT CPT-44673 Venipuncture Draw Fee 10:53:35 CDT CPT-J2930 Solu Medrol 125 mg (Methyl Prednisolone Sodium Succinate) 09:29:26 CDT CPT-59331 Abx/Therapy Injection 09:29:26 CDT CPT-Cryo Cryotherapy 16:51:37 HEPATOLOGIST
--- OUTSIDE RECORDS SUMMARY | 2019-07-22 19:40 | XMS REPORT | Clinical Summary ---
Author Author Yovanny, Clarisa Christopher Organization [facility] Address Unknown Phone Unavailable Allergies, Adverse Reactions, [...] Then increase to 20mg daily. FLUOXETINE HCL 06502012840 No Longer Active Yulissa Gibbs APRN Active PROZAC 20 MG ORAL CAPSULE Take 1 tab daily FLUO XETINE HCL 66616010504 Active Shannan Gibbs APRN Active BUSPIRONE HCL 7.5 MG ORAL TABLET 1 pill twice daily, for anxiety 20 14/11/05 BUSPIRONE HCL 91308147113 Active Shannan Gibbs APRN Active CITALOPRAM HYDROBROMIDE 20 MG ORAL TABLET take 1 tab p o qday for depresion and anxiety. CITALOPRAM HYDROBROMIDE 68772808905 No L onger Active Shannan Gibbs APRN Active CYANOCOBALAMIN 1000 MCG/ML INJECTION SOLUTION 1 inject ion weekly for 1 month, than 1 a month for 2 months. recheck lab CYANOCO BALAMIN 93329971022 No Longer Active Shannan Gibbs APRN Active ULTRAM 50 MG ORAL TABLET 1 TAB PO Q 6 HRS PRN HEADACHE TRAMADOL HCL 53502470378 Active Adrián Varghese MD Active ULTRAM 50 MG ORAL TABLET take 1 tab po q 6 hrs prn headache pain TRAMADOL HCL 09080238915 No Longer Active Adrián Varghese MD Active CLINDAMYCIN PHOSPHATE 2 % VAGINAL CREAM apply cream to acne BID prn CLINDAMYCIN PHOSPHATE 96588331830 No Longer Active Adrián dyson MD Active MINOCYCLINE HCL 100 MG ORAL CAPSULE take one po BID 20 13/11/25 MINOCYCLINE HCL 12817382541 No Longer Active Adrián Varghese MD A ctive TRI-SPRINTEC 0.18/0.215/0.25 MG-35 MCG ORAL TABLET 1 po qd a s directed NORGESTIM-ETH ESTRAD TRIPHASIC 09917460861 Active Adrián Varghese MD Active ZITHROMAX 250 MG ORAL TABLET 2 po today, then 1 po q days 2-5 20 12/07/06 AZITHROMYCIN 81954133263 No Longer Active Adrián Varghese MD Active ZITHROMAX 250 MG ORAL TABLET 2 po today, then 1 po q days 2-5 20 11/06/16 AZITHROMYCIN 36375493011 No Longer Active Adrián Varghese MD Active PREDNISONE 20 MG ORAL TABLET 2 tabs daily for 3 days, 1 tab daily for 3 days, 1/2 tab daily for 2 days PREDNISONE 04295992653 No Longer Active Adrián Varghese MD Active ZANTAC 75 75 MG ORAL TABLET take 1 po BID RANIT IDINE HCL 99910356966 No Longer Active Uriel BOYD Active BENZACLIN 1-5 % EXTERNAL GEL apply to skin BID prn for acne 2012 CLINDAMYCIN PHOS-BENZOYL PEROX 26434188582 No Longer Active Uriel BOYD Active BENZACLIN 1-5 % EXTERNAL GEL apply to skin BID prn for acne 2012 BENZACLIN 1-5 % EXTERNAL GEL 821212 CLINDAMYCIN PHOS-BE NZOYL PEROX Inactive MINOCYCLINE HCL 100 MG ORAL CAPSULE take one po BID 13/11/25 MINOCYCLINE HCL 100 MG ORAL CAPSULE 200184 MINOCYCLINE HCL Inac tive CLINDAMYCIN PHOSPHATE 2 % VAGINAL CREAM apply cream to acne BID prn CLINDAMYCIN PHOSPHATE 2 % VAGINAL CREAM 479431 CLINDAMY ANGELIA PHOSPHATE Inactive ULTRAM 50 MG ORAL TABLET take 1 tab po q 6 hrs prn headache pain ULTRAM 50 MG ORAL TABLET 320872 TRAMADOL HCL Inactiv e CYANOCOBALAMIN 1000 MCG/ML INJECTION SOLUTION 1 inject ion weekly for 1 month, than 1 a month for 2 months. recheck lab CYANOCOBALAMIN 1000 MCG/ML INJECTION SOLUTION 250195 CYANOCOBALAMIN Inactive CITALOPRAM HYDROBROMIDE 20 MG ORAL TABLET take 1 tab p o qday for depresion and anxiety. CITALOPRAM HYDROBROMIDE 20 MG ORAL TABLET 652311 CITALOPRAM HYDROBROMIDE Inactive PROZAC 10 MG ORAL CAPSULE Take 1 tab daily for 1 week. Then increase to 20mg daily. PROZAC 10 MG ORAL CAPSULE 229987 FLUOXETINE HCL Inactive ZANTAC 75 75 MG ORAL TABLET take 1 po BID ZANTAC 75 75 MG ORAL TABLET 000282 RANITIDINE HCL Inactive PREDNISONE 20 MG ORAL TABLET 2 tabs daily for 3 days, 1 tab daily for 3 days, 1/2 tab daily for 2 days PREDNISONE 20 MG ORAL T ABLET 170325 PREDNISONE Inactive ZITHROMAX 250 MG ORAL TABLET 2 po today, then 1 po q days 2-5 20 11/06/16 ZITHROMAX 250 MG ORAL TABLET 600093 AZITHROMYCIN [place] ctive ZITHROMAX 250 MG ORAL TABLET 2 po today, then 1 po q days 2-5 20 12/07/06 ZITHROMAX 250 MG ORAL TABLET 259351 AZITHROMYCIN [place] ctive Immunizations Vaccine Administration Date [...] Value Unit Range Description Lab Report: Chlamydia/GC APTIMA/49054 - Lab chlamydia DNA probe NOT DETECTED NOT DETECTED Lab Report: Chlamydia/GC APTIMA/28435 - Microbiology Neisseria gonorrhoeae DNA probe NOT DETECTED NO T DETECTED Lab Report: Comp. Metabolic Panel - Chem istry blood glucose 85 mg/dL 65-110 chloride, serum 102 mmol/L 98-107 potassium, serum 3.8 mmol/L 3.5-5.2 carbon dioxide, venous blood 25.3 mmol/L 21.0-32 .0 sodium, serum 139 mmol/L 295-022 0085/09/06 urea nitrogen, blood 14 mg/dL 7-18 creatinine, [...] 5.0-8.5 Encounters Code Encounter Date Provider Facility CPT-40418 Level 3 Est. 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 Patient 11:10:55 CDT Hubert [facility] CPT-14001 Level 4 Est. Patient 14:07:40 CDT Hubert [facility] CPT-65718 Level 4 Est. Patient 13:54:09 CDT Adrián dyson MD [facility] CPT-12388 Level 3 Est. Patient 09:22:14 CDT Adrián dyson MD [facility] CPT-06982 Level 3 Est. Patient 08:59:31 CDT Adrián dyson MD [facility] CPT-07707 Level 3 Est. Patient 11:58:31 CDT Adrián dyson MD [facility] CPT-27973 Level 3 Est. Patient 09:06:35 CDT Adrián dyson MD [facility] CPT-34385 Level 3 Est. Patient 09:18:45 CDT Adrián dyson MD [facility] CPT-25303 Level 3 Est. Patient 09:13:22 CDT Adrián dyson MD [facility] CPT-98811 Level 3 Est. Patient 18:04:31 CLOTHES IRONER Adrián dyson MD [facility] CPT-62435 Level 4 Est. Patient 14:00:53 CDT Uriel bhatia [facility] CPT-39223 Level 3 Est. Patient 20:00:09 CDT Terry jenkins DO [facility] CPT-83100 Level 3 Est. Patient 08:45:08 CDT Uriel bhatia [facility] CPT-17529 Level 3 Est. Patient 09:09:26 CDT Uriel bhatia [facility] CPT-15852 Level 3 Est. Patient 16:32:31 CDT Adrián dyson MD [facility] CPT-01481 Level 3 Est. Patient 09:35:27 CLOTHES IRONER Norman fuentes [facility] CPT-52481 Level 2 Est. Patient 16:51:37 CLOTHES IRONER Adrián dyson MD [facility] CPT-90157 Level 3 Est. Patient 10:00:11 CLOTHES IRONER Ace Arriaza MD [facility] Procedures Code Procedure Name Date Entry Date Standard Desc ription CPT-08137 First Vx - Ix admin via ID I M or jet injects without counseling by physician 14:18:02 CDT CPT-30385 Gardasil 9 Intramuscular Suspension 1 4:18:02 CDT CPT-J3420 Vitamin B12 1000mcg (Cyanocobalamin) 16:30:23 CDT CPT-76792 Abx/Therapy Injection 16:30:23 CDT CPT-J3420 Vitamin B12 1000mcg (Cyanocobalamin) 16:09:42 CDT CPT-34087 Abx/Therapy Injection 16:09:42 CDT CPT-J3420 Vitamin B12 1000mcg (Cyanocobalamin) 15:22:47 CDT CPT-44781 Abx/Therapy Injection 15:22:47 CDT CPT-J3420 Vitamin B12 1000mcg (Cyanocobalamin) 17:00:35 CDT CPT-02545 Abx/Therapy Injection 17:00:35 CDT CPT-41240 First Vx - Ix admin via ID I M or jet injects without counseling by physician 16:04:17 CLOTHES IRONER CPT-49175 Gardasil 9 Intramuscular Suspension 1 6:04:17 CLOTHES IRONER CPT-70713 Venipuncture Draw Fee 09:40:26 CDT CPT-65112 [place] [facility] - LAB USE ONLY 09:40:26 CDT 11/30 CPT-95218 CBC with Diff - LAB USE ONLY 09:40:26 CDT 2 CPT-53738 Addl Vx - Ix admin via ID IM or jet injects without counseling by physician 09:40:21 CDT CPT-14787 Menactra Intramuscular Injectable 09:40:21 CDT CPT-61743 Addl Vx - Ix admin via ID IM or jet injects without counseling by physician 09:40:21 CDT CPT-95399 Gardasil 9 Intramuscular Suspension 0 9:40:21 CDT CPT-46366 First Vx - Ix admin via ID I M or jet injects without counseling by physician 09:40:21 CDT CPT-85420 Havrix Intramuscular Suspension 720 EL U /0.5ML 09:40:21 CDT CPT-J2930 Solu Medrol 125 mg (Methyl Prednisolone Sodium Succinate) 09:43:26 CDT CPT-73321 Abx/Therapy Injection 09:43:26 CDT CPT-J2930 Solu Medrol 125 mg (Methyl Prednisolone Sodium Succinate) 09:05:55 CDT CPT-20171 Abx/Therapy Injection 09:05:55 CDT CPT-34073 Venipuncture Draw Fee 14:01:33 CDT CPT-41455 EKG Trac and Interp 11:22:04 CDT CPT-51106 Venipuncture Draw Fee 10:53:35 CDT CPT-J2930 Solu Medrol 125 mg (Methyl Prednisolone Sodium Succinate) 09:29:26 CDT CPT-17200 Abx/Therapy Injection 09:29:26 CDT CPT-Cryo Cryotherapy 16:51:37 CLOTHES IRONER
--- OUTSIDE RECORDS SUMMARY | 2019-07-22 19:40 | XMS REPORT | Clinical Summary ---
Author Author Yovanny, Clarisa Christopher Organization [facility] Address Unknown Phone Unavailable Allergies, [...] to acne BID prn 06/14 CLINDAMYCIN PHOSPHATE 91028028009 No Longer Active Adrián Joseph Active MINOCYCLINE HCL 100 MG CAPS take one po BID MINOCYCLINE HCL 55308982729 No Longer Active Adrián Varghese MD Acti ve TRI-SPRINTEC 0.18/0.215/0.25 MG-35 MCG TABS 1 po qd as directed 201 07/04/00 NORGESTIM-ETH ESTRAD TRIPHASIC 64583628063 Active Adrián Varghese MD Active ZITHROMAX 250 MG TAB 2 po today, then 1 po q days 2-5 AZITHROMYCIN 69705670638 No Longer Active Adrián Varghese MD Acti ve ULTRAM 50 MG TAB take 1 tab po q 6 hrs prn headache pain TRAMADOL HCL 50370991129 Active Adrián Varghese MD Active ZITHROMAX 250 MG TAB 2 po today, then 1 po q days 2-5 AZITHROMYCIN 64276163269 No Longer Active Adrián Varghese MD Acti ve PREDNISONE 20 MG TAB 2 tabs daily for 3 days, 1 t ab daily for 3 days, 1/2 tab daily for 2 days PREDNISONE 90015679933 No Longer Active Adrián Varghese MD Active ZANTAC 75 75 MG TABS take 1 po BID RANITIDINE H CL 60190609408 No Longer Active Uriel BOYD Active BENZACLIN 1-5 % GEL apply to skin BID prn for acne 201 05/05/14 CLINDAMYCIN PHOS-BENZOYL PEROX 59696786979 No Longer Active Uriel BOYD Active BENZACLIN 1-5 % GEL apply to skin BID prn for acne 201 05/05/14 BENZACLIN 1-5 % GEL 494634 CLINDAMYCIN PHOS-BENZOYL PEROX Inactive MINOCYCLINE HCL 100 MG CAPS take one po BID MINOCYCLINE HCL 100 MG CAPS 213700 MINOCYCLINE HCL Inactive CLINDAMYCIN PHOSPHATE 2 % CREA apply cream to acne BID prn 06/14 CLINDAMYCIN PHOSPHATE 2 % CREA 921935 CLINDAMYCIN PHOSP HATE Inactive ZANTAC 75 75 MG TABS take 1 po BID ZANTAC 75 75 MG TABS 606510 RANITIDINE HCL Inactive PREDNISONE 20 MG TAB 2 tabs daily for 3 days, 1 t ab daily for 3 days, 1/2 tab daily for 2 days PREDNISONE 20 MG TAB 857449 PREDNISON E Inactive ZITHROMAX 250 MG TAB 2 po today, then 1 po q days 2-5 ZITHROMAX 250 MG TAB 6447968 AZITHROMYCIN Inactive ZITHROMAX 250 MG TAB 2 po today, then 1 po q days 2-5 ZITHROMAX 250 MG TAB 8213281 AZITHROMYCIN Inactive Immunizations Vaccine Administration Date Value [...] [phone] Encounters Code Encounter Date Provider Facility CPT-76307 Level 3 Est. Patient 09:22:14 CDT Adrián dyson MD [facility] CPT-45857 Level 3 Est. Patient 08:59:31 CDT Adrián dyson MD [facility] CPT-51757 Level 3 Est. Patient 11:58:31 CDT Adrián dyson MD [facility] CPT-85981 Level 3 Est. Patient 09:06:35 CDT Adrián dyson MD [facility] CPT-47901 Level 3 Est. Patient 09:18:45 CDT Adrián dyson MD [facility] CPT-31605 Level 3 Est. Patient 09:13:22 CDT Adrián dyson MD [facility] CPT-05945 Level 3 Est. 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 Patient 14:00:53 CDT Uriel bhatia [facility] CPT-23784 Level 3 Est. Patient 20:00:09 CDT Terry jenkins DO [facility] CPT-01882 Level 3 Est. Patient 08:45:08 CDT Uriel bhatia [facility] CPT-57574 Level 3 Est. Patient 09:09:26 CDT Uriel bhatia [facility] CPT-87658 Level 3 Est. Patient 16:32:31 CDT Adriná dyson MD [facility] CPT-28593 Level 3 Est. 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 Patient 10:00:11 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 Ace Arriaza MD [facility] Procedures Code Procedure Name Date Entry Date Standard Desc ription CPT-25731 Venipuncture Draw Fee 09:40:26 CDT CPT-98484 [place] [facility] - LAB USE ONLY 09:40:26 CDT 11/30 CPT-44139 CBC with Diff - LAB USE ONLY 09:40:26 CDT 2 CPT-86950 Addl Vx - Ix admin via ID IM or jet injects without counseling by physician 09:40:21 CDT CPT-30877 Menactra Intramuscular Injectable 09:40:21 CDT CPT-79155 Addl Vx - Ix admin via ID IM or jet injects without counseling by physician 09:40:21 CDT CPT-97234 Gardasil 9 Intramuscular Suspension 0 9:40:21 CDT CPT-98380 First Vx - Ix admin via ID I M or jet injects without counseling by physician 09:40:21 CDT CPT-54689 Havrix Intramuscular Suspension 720 EL U /0.5ML 09:40:21 CDT CPT-J2930 Solu Medrol 125 mg (Methyl Prednisolone Sodium Succinate) 09:43:26 CDT CPT-92240 Abx/Therapy Injection 09:43:26 CDT CPT-J2930 Solu Medrol 125 mg (Methyl Prednisolone Sodium Succinate) 09:05:55 CDT CPT-71184 Abx/Therapy Injection 09:05:55 CDT CPT-31633 Venipuncture Draw Fee 14:01:33 CDT CPT-61116 EKG Trac and Interp 11:22:04 CDT CPT-24052 Venipuncture Draw Fee 10:53:35 CDT CPT-J2930 Solu Medrol 125 mg (Methyl Prednisolone Sodium Succinate) 09:29:26 CDT CPT-77380 Abx/Therapy Injection 09:29:26 CDT CPT-Cryo Cryotherapy 16:51:37 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
--- OUTSIDE RECORDS SUMMARY | 2019-07-22 19:40 | XMS REPORT | Clinical Summary ---
Author Author Yovanny, Clarisa Christopher Organization [facility] Address Unknown Phone Unavailable Allergies, [...] vagina Dermatitis, atopic 691.8 Active Cale Lopez [employer]ER Other atopic dermatitis and related conditions Contraceptive [...] 1 TABLET BY MOUTH DAILY DIRECTED SULFAMETHOXAZOLE-TRIMETHOPRIM 77384651310 No Longer Active Madelin Hatch MD Active BUSPIRONE HCL 7.5 MG ORAL TABLET PRN BUSPIR ONE HCL 07028397951 Active Madelin Hatch MD Active PROZAC 20 MG ORAL CAPSULE PRN FLUOXETINE HCL 0077 5754603 Active Madelin Hatch MD Active ABSORICA 20 MG ORAL CAPSULE 1 tablet daily ISOT RETINOIN 76171130799 Active Madelin Hatch MD Active ACZONE 5 % EXTERNAL GEL apply once daily to face 5 DAPSONE 62751566182 No Longer Active Madelin Hatch MD Active PROZAC 10 MG ORAL CAPSULE Take 1 tab daily for 1 week. Then increase to 20mg daily. FLUOXETINE HCL 87688519825 No Longer Active Yulissa ortega Cristina STRICKLANDN Active CITALOPRAM HYDROBROMIDE 20 MG ORAL TABLET take 1 tab p o qday for depresion and anxiety. CITALOPRAM HYDROBROMIDE 79793823983 No L onger Active Shannan Evans APRN Active CYANOCOBALAMIN 1000 MCG/ML INJECTION SOLUTION 1 inject ion weekly for 1 month, than 1 a month for 2 months. recheck lab CYANOCO BALAMIN 87912788075 No Longer Active Shannan Evans APRN Active ULTRAM 50 MG ORAL TABLET 1 TAB PO Q 6 HRS PRN HEADACHE TRAMADOL HCL 99132773335 Active Adrián Varghese MD Active ULTRAM 50 MG ORAL TABLET take 1 tab po q 6 hrs prn headache pain TRAMADOL HCL 88898353238 No Longer Active Adrián Varghese MD Active CLINDAMYCIN PHOSPHATE 2 % VAGINAL CREAM apply cream to acne BID prn CLINDAMYCIN PHOSPHATE 35824411705 No Longer Active Adrián dyson MD Active MINOCYCLINE HCL 100 MG ORAL CAPSULE take one po BID 13/11/25 MINOCYCLINE HCL 45690988947 No Longer Active Adrián Varghese MD A ctive TRI-SPRINTEC 0.18/0.215/0.25 MG-35 MCG ORAL TABLET 1 po qd a s directed NORGESTIM-ETH ESTRAD TRIPHASIC 38356583455 Active Madelin Hatch MD Active ZITHROMAX 250 MG ORAL TABLET 2 po today, then 1 po q days 2-5 20 12/07/06 AZITHROMYCIN 97173126684 No Longer Active Adrián Varghese MD Active ZITHROMAX 250 MG ORAL TABLET 2 po today, then 1 po q days 2-5 20 11/06/16 AZITHROMYCIN 97673454927 No Longer Active Adrián Varghese MD Active PREDNISONE 20 MG ORAL TABLET 2 tabs daily for 3 days, 1 tab daily for 3 days, 1/2 tab daily for 2 days PREDNISONE 31044558493 No Longer Active Adrián Varghese MD Active ZANTAC 75 75 MG ORAL TABLET take 1 po BID RANIT IDINE HCL 63824008080 No Longer Active Uriel BOYD Active BENZACLIN 1-5 % EXTERNAL GEL apply to skin BID prn for acne 2012 CLINDAMYCIN PHOS-BENZOYL PEROX 18140887923 No Longer Active Uriel BOYD Active BENZACLIN 1-5 % EXTERNAL GEL apply to skin BID prn for acne 2012 BENZACLIN 1-5 % EXTERNAL GEL 259367 CLINDAMYCIN PHOS-BE NZOYL PEROX Inactive MINOCYCLINE HCL 100 MG ORAL CAPSULE take one po BID 13/11/25 MINOCYCLINE HCL 100 MG ORAL CAPSULE 642410 MINOCYCLINE HCL Inac tive CLINDAMYCIN PHOSPHATE 2 % VAGINAL CREAM apply cream to acne BID prn CLINDAMYCIN PHOSPHATE 2 % VAGINAL CREAM 240994 CLINDAMY ANGELIA PHOSPHATE Inactive ULTRAM 50 MG ORAL TABLET take 1 tab po q 6 hrs prn headache pain ULTRAM 50 MG ORAL TABLET 715394 TRAMADOL HCL Inactiv e CYANOCOBALAMIN 1000 MCG/ML INJECTION SOLUTION 1 inject ion weekly for 1 month, than 1 a month for 2 months. recheck lab CYANOCOBALAMIN 1000 MCG/ML INJECTION SOLUTION 260818 CYANOCOBALAMIN Inactive CITALOPRAM HYDROBROMIDE 20 MG ORAL TABLET take 1 tab p o qday for depresion and anxiety. CITALOPRAM HYDROBROMIDE 20 MG ORAL TABLET 095416 CITALOPRAM HYDROBROMIDE Inactive PROZAC 10 MG ORAL CAPSULE Take 1 tab daily for 1 week. Then increase to 20mg daily. PROZAC 10 MG ORAL CAPSULE 016627 FLUOXETINE HCL Inactive ACZONE 5 % EXTERNAL GEL apply once daily to face 07/22 ACZONE 5 % EXTERNAL GEL 428294 DAPSONE Inactive SULFAMETHOXAZOLE-TRIMETHOPRIM 800-160 MG ORAL TABLET T QUINCY 1 TABLET BY MOUTH DAILY DIRECTED SULFAMETHOXAZOLE-TRI METHOPRIM 800-160 MG ORAL TABLET 108686 SULFAMETHOXAZOLE-TRIMETHOPRIM Inactive ZANTAC 75 75 MG ORAL TABLET take 1 po BID ZANTAC 75 75 MG ORAL TABLET 755719 RANITIDINE HCL Inactive PREDNISONE 20 MG ORAL TABLET 2 tabs daily for 3 days, 1 tab daily for 3 days, 1/2 tab daily for 2 days PREDNISONE 20 MG ORAL T ABLET 065094 PREDNISONE Inactive ZITHROMAX 250 MG ORAL TABLET 2 po today, then 1 po q days 2-5 20 11/06/16 ZITHROMAX 250 MG ORAL TABLET 919287 AZITHROMYCIN [place] ctive ZITHROMAX 250 MG ORAL TABLET 2 po today, then 1 po q days 2-5 20 12/07/06 ZITHROMAX 250 MG ORAL TABLET 818821 AZITHROMYCIN [place] ctive Immunizations Vaccine Administration Date [...] Value Unit Range Description Lab Report: Chlamydia/GC APTIMA/95217 - Lab chlamydia DNA probe NOT DETECTED NOT DETECTED chlamydia DNA probe NOT DETECTED NOT DETECTED Lab Report: Chlamydia/GC APTIMA/65885 - Microbiology Neisseria gonorrhoeae DNA probe NOT DETECTED NO T DETECTED Neisseria gonorrhoeae DNA probe NOT DETECTED NO T DETECTED Lab Report: Comp. Metabolic Panel - Chem istry sodium, serum 141 mmol/L 055-099 3534/11/22 carbon dioxide, venous blood 25.2 mmol/L 21.0-32 .0 potassium, serum 3.8 mmol/L 3.5-5.2 chloride, serum 104 mmol/L 98-107 blood glucose 95 mg/dL 65-110 urea nitrogen, blood 15 mg/dL 7-18 creatinine, serum 0.79 mg/dL 0.60-1.30 alanine aminotransferase (SGPT), serum 28 U/L 10-55 aspartate aminotransferase (SGOT), serum 17 U/L 15-45 calcium, serum 8.9 mg/dL 8.5-10.1 bilirubin, serum, total 0.30 mg/dL 0.20-1.00 sodium, serum 139 mmol/L 612-890 7386/09/06 carbon dioxide, venous blood 25.3 mmol/L 21.0-32 [...] 5.0-8.5 Encounters Code Encounter Date Provider Facility CPT-73327 Level 3 New Patient 12:59:59 CDT Madelin almodovar MD [facility] CPT-32669 Level 3 Est. 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 Patient 11:35:37 FREELANCE WRITER Cale morris [facility] CPT-62375 Level 4 Est. Patient 11:10:55 CDT Shannan Are ll [facility] CPT-68749 Level 4 Est. Patient 14:07:40 CDT Shannan Are ll [facility] CPT-77942 Level 4 Est. Patient 13:54:09 CDT Adrián dyson MD [facility] CPT-23879 Level 3 Est. Patient 09:22:14 CDT Adrián dyson MD [facility]-92412 Level 3 Est. Patient 08:59:31 CDT Adrián dyson MD [facility]-74882 Level 3 Est. Patient 11:58:31 CDT Adrián dyson MD [facility] CPT-80825 Level 3 Est. Patient 09:06:35 CDT Adrián dyson MD [facility] CPT-60415 Level 3 Est. Patient 09:18:45 CDT Adrián dyson MD [facility] CPT-69436 Level 3 Est. Patient 09:13:22 CDT Adrián dyson MD [facility] CPT-25284 Level 3 Est. 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 CPT-82598 Level 4 Est. Patient 14:00:53 CDT [facility] CPT-06552 Level 3 Est. Patient 20:00:09 CDT Terry jenkins DO [facility] CPT-74947 Level 3 Est. Patient 08:45:08 CDT [facility] CPT-60771 Level 3 Est. Patient 09:09:26 CDT Uriel bhatia [facility] CPT-05814 Level 3 Est. Patient 16:32:31 CDT Adrián dyson MD [facility] CPT-93096 Level 3 Est. Patient 09:35:27 FREELANCE WRITER [facility] CPT-38318 Level 2 Est. Patient 16:51:37 FREELANCE WRITER Adrián dyson MD [facility] CPT-32502 Level 3 Est. Patient 10:00:11 FREELANCE WRITER Ace Arriaza MD [facility] Procedures Code Procedure Name Date Entry Date Standard Desc ription CPT-84084 Addl Vx - Ix admin via ID IM or jet injects without counseling by physician 15:35:10 CDT CPT-55974 Meningococcal B, recombinant vaccine 15:35:10 CDT CPT-05025 First Vx - Ix admin via ID I M or jet injects without counseling by physician 15:35:10 CDT CPT-73649 Havrix Intramuscular Suspension 720 EL U /0.5ML 15:35:10 CDT CPT-72255 First Vx - Ix admin via ID I M or jet injects without counseling by physician 14:18:02 CDT CPT-09521 Gardasil 9 Intramuscular Suspension 1 4:18:02 CDT CPT-J3420 Vitamin B12 1000mcg (Cyanocobalamin) 16:30:23 CDT CPT-91283 Abx/Therapy Injection 16:30:23 CDT CPT-J3420 Vitamin B12 1000mcg (Cyanocobalamin) 16:09:42 CDT CPT-07571 Abx/Therapy Injection 16:09:42 CDT CPT-J3420 Vitamin B12 1000mcg (Cyanocobalamin) 15:22:47 CDT CPT-46244 Abx/Therapy Injection 15:22:47 CDT CPT-J3420 Vitamin B12 1000mcg (Cyanocobalamin) 17:00:35 CDT CPT-99092 Abx/Therapy Injection 17:00:35 CDT CPT-33655 First Vx - Ix admin via ID I M or jet injects without counseling by physician 16:04:17 FREELANCE WRITER CPT-42789 Gardasil 9 Intramuscular Suspension 1 6:04:17 FREELANCE WRITER CPT-03785 Venipuncture Draw Fee 09:40:26 CDT CPT-03336 [place] [facility] - LAB USE ONLY 09:40:26 CDT 11/30 CPT-20243 CBC with Diff - LAB USE ONLY 09:40:26 CDT 2 CPT-17655 Addl Vx - Ix admin via ID IM or jet injects without counseling by physician 09:40:21 CDT CPT-51841 Menactra Intramuscular Injectable 09:40:21 CDT CPT-49154 Addl Vx - Ix admin via ID IM or jet injects without counseling by physician 09:40:21 CDT CPT-04457 Gardasil 9 Intramuscular Suspension 0 9:40:21 CDT CPT-33023 First Vx - Ix admin via ID I M or jet injects without counseling by physician 09:40:21 CDT CPT-72164 Havrix Intramuscular Suspension 720 EL U /0.5ML 09:40:21 CDT CPT-J2930 Solu Medrol 125 mg (Methyl Prednisolone Sodium Succinate) 09:43:26 CDT CPT-58116 Abx/Therapy Injection 09:43:26 CDT CPT-J2930 Solu Medrol 125 mg (Methyl Prednisolone Sodium Succinate) 09:05:55 CDT CPT-58758 Abx/Therapy Injection 09:05:55 CDT CPT-19512 Venipuncture Draw Fee 14:01:33 CDT CPT-80547 EKG Trac and Interp 11:22:04 CDT CPT-02770 Venipuncture Draw Fee 10:53:35 CDT CPT-J2930 Solu Medrol 125 mg (Methyl Prednisolone Sodium Succinate) 09:29:26 CDT CPT-12384 Abx/Therapy Injection 09:29:26 CDT CPT-Cryo Cryotherapy 16:51:37 FREELANCE WRITER
--- OUTSIDE RECORDS SUMMARY | 2019-07-22 19:40 | XMS REPORT | Clinical Summary ---
Author Author Yovanny, Clarisa Christopher Organization [facility] Address Unknown Phone Unavailable Allergies, Adverse [...] child health check Myalgias 729.1 Active Adrián aVrghese MD Myalgia and myositis, unspecified Pharyngitis-Acute ICD-462 Inactive Adrián leavitt MD Medication List Medication Instructions Start Date Stop Date Generic Name NDC Status Provider Patient Instruction CLINDAMYCIN PHOSPHATE 2 % CREA apply cream to acne BID prn 06/14 CLINDAMYCIN PHOSPHATE 72128143146 No Longer Active Adrián Joseph Active MINOCYCLINE HCL 100 MG CAPS take one po BID MINOCYCLINE HCL 27413837941 No Longer Active Adrián Varghese MD Acti ve TRI-SPRINTEC 0.18/0.215/0.25 MG-35 MCG TABS 1 po qd as directed 201 07/04/00 NORGESTIM-ETH ESTRAD TRIPHASIC 00569972949 Active Adrián Varghese MD Active ZITHROMAX 250 MG TAB 2 po today, then 1 po q days 2-5 AZITHROMYCIN 12220596185 No Longer Active Adrián Varghese MD Acti ve ULTRAM 50 MG TAB take 1 tab po q 6 hrs prn headache pain TRAMADOL HCL 98759050326 Active Adrián Varghese MD Active ZITHROMAX 250 MG TAB 2 po today, then 1 po q days 2-5 AZITHROMYCIN 72725080271 No Longer Active Adrián Varghese MD Acti ve PREDNISONE 20 MG TAB 2 tabs daily for 3 days, 1 t ab daily for 3 days, 1/2 tab daily for 2 days PREDNISONE 64796554486 No Longer Active Adrián Varghese MD Active ZANTAC 75 75 MG TABS take 1 po BID RANITIDINE H CL 09812760411 No Longer Active Uriel BOYD Active BENZACLIN 1-5 % GEL apply to skin BID prn for acne 201 05/05/14 CLINDAMYCIN PHOS-BENZOYL PEROX 88660971272 No Longer Active Uriel BOYD Active BENZACLIN 1-5 % GEL apply to skin BID prn for acne 201 05/05/14 BENZACLIN 1-5 % GEL 774523 CLINDAMYCIN PHOS-BENZOYL PEROX Inactive MINOCYCLINE HCL 100 MG CAPS take one po BID MINOCYCLINE HCL 100 MG CAPS 550340 MINOCYCLINE HCL Inactive CLINDAMYCIN PHOSPHATE 2 % CREA apply cream to acne BID prn 06/14 CLINDAMYCIN PHOSPHATE 2 % CREA 154019 CLINDAMYCIN PHOSP HATE Inactive ZANTAC 75 75 MG TABS take 1 po BID ZANTAC 75 75 MG TABS 522377 RANITIDINE HCL Inactive PREDNISONE 20 MG TAB 2 tabs daily for 3 days, 1 t ab daily for 3 days, 1/2 tab daily for 2 days PREDNISONE 20 MG TAB 124446 PREDNISON E Inactive ZITHROMAX 250 MG TAB 2 po today, then 1 po q days 2-5 ZITHROMAX 250 MG TAB 9301035 AZITHROMYCIN Inactive ZITHROMAX 250 MG TAB 2 po today, then 1 po q days 2-5 ZITHROMAX 250 MG TAB 1355235 AZITHROMYCIN Inactive Immunizations Vaccine Administration Date Value [...] [phone] Encounters Code Encounter Date Provider Facility CPT-17339 Level 3 Est. Patient 09:22:14 CDT Adrián dyson MD [facility] CPT-05293 Level 3 Est. Patient 08:59:31 CDT Adrián dyson MD [facility] CPT-37933 Level 3 Est. Patient 11:58:31 CDT Adrián dyson MD [facility] CPT-57647 Level 3 Est. Patient 09:06:35 CDT Adrián dyson MD [facility] CPT-51258 Level 3 Est. Patient 09:18:45 CDT Adrián dyson MD [facility] CPT-06446 Level 3 Est. Patient 09:13:22 CDT Adrián dyson MD [facility] CPT-07889 Level 3 Est. 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 CPT-13028 Level 4 Est. Patient 14:00:53 CDT Uriel bhatia [facility] CPT-89389 Level 3 Est. Patient 20:00:09 CDT Terry jenkins DO [facility] CPT-14165 Level 3 Est. Patient 08:45:08 CDT Uriel bhatia [facility] CPT-19744 Level 3 Est. Patient 09:09:26 CDT Uriel bhatia [facility] CPT-59347 Level 3 Est. Patient 16:32:31 CDT Adrián dyson MD [facility] CPT-47321 Level 3 Est. Patient 09:35:27 BLOWER FEEDER DYED RAW STOCK Norman fuentes [facility] CPT-42715 Level 2 Est. Patient 16:51:37 BLOWER FEEDER DYED RAW STOCK Adrián dyson MD [facility] CPT-13838 Level 3 Est. Patient 10:00:11 BLOWER FEEDER DYED RAW STOCK Ace Arriaza MD [facility] Procedures Code Procedure Name Date Entry Date Standard Desc ription CPT-79136 Venipuncture Draw Fee 09:40:26 CDT CPT-72565 [place] [facility] - LAB USE ONLY 09:40:26 CDT 11/30 CPT-46010 CBC with Diff - LAB USE ONLY 09:40:26 CDT 2 CPT-25083 Addl Vx - Ix admin via ID IM or jet injects without counseling by physician 09:40:21 CDT CPT-31222 Menactra Intramuscular Injectable 09:40:21 CDT CPT-34016 Addl Vx - Ix admin via ID IM or jet injects without counseling by physician 09:40:21 CDT CPT-89220 Gardasil 9 Intramuscular Suspension 0 9:40:21 CDT CPT-73549 First Vx - Ix admin via ID I M or jet injects without counseling by physician 09:40:21 CDT CPT-06450 Havrix Intramuscular Suspension 720 EL U /0.5ML 09:40:21 CDT CPT-J2930 Solu Medrol 125 mg (Methyl Prednisolone Sodium Succinate) 09:43:26 CDT CPT-87239 Abx/Therapy Injection 09:43:26 CDT CPT-J2930 Solu Medrol 125 mg (Methyl Prednisolone Sodium Succinate) 09:05:55 CDT CPT-79291 Abx/Therapy Injection 09:05:55 CDT CPT-54441 Venipuncture Draw Fee 14:01:33 CDT CPT-19365 EKG Trac and Interp 11:22:04 CDT CPT-20583 Venipuncture Draw Fee 10:53:35 CDT CPT-J2930 Solu Medrol 125 mg (Methyl Prednisolone Sodium Succinate) 09:29:26 CDT CPT-04801 Abx/Therapy Injection 09:29:26 CDT CPT-Cryo Cryotherapy 16:51:37 BLOWER FEEDER DYED RAW STOCK
--- OUTSIDE RECORDS SUMMARY | 2019-07-22 19:41 | XMS REPORT | Clinical Summary ---
[...] as directed 201 07/04/00 NORGESTIM-ETH ESTRAD TRIPHASIC 42373808648 Active Samreen Lemons Active ZITHROMAX 250 MG TAB 2 po today, then 1 po q days 2-5 AZITHROMYCIN 73044721562 No Longer Active Adrián Varghese MD Acti ve ULTRAM 50 MG TAB take 1 tab po q 6 hrs prn headache pain TRAMADOL HCL 74506681380 Active Adrián Varghese MD Active ZITHROMAX 250 MG TAB 2 po today, then 1 po q days 2-5 AZITHROMYCIN 01294317389 No Longer Active Adrián Varghese MD Acti ve CLINDAMYCIN PHOSPHATE 2 % CREA apply cream to acne BID prn CLINDAMYCIN PHOSPHATE 38567950968 Active Adrián Varghese MD Active PREDNISONE 20 MG TAB 2 tabs daily for 3 days, 1 t ab daily for 3 days, 1/2 tab daily for 2 days PREDNISONE 14757043736 No Longer Active Adrián Varghese MD Active ZANTAC 75 75 MG TABS take 1 po BID RANITIDINE H CL 97192672198 No Longer Active Uriel BOYD Active MINOCYCLINE HCL 100 MG CAPS take one po BID MIN OCYCLINE HCL 67056897498 Active Adrián Varghese MD Active BENZACLIN 1-5 % GEL apply to skin BID prn for acne 201 05/05/14 CLINDAMYCIN PHOS-BENZOYL PEROX 92056818157 No Longer Active rUiel BOYD Active BENZACLIN 1-5 % GEL apply to skin BID prn for acne 201 05/05/14 BENZACLIN 1-5 % GEL 308216 CLINDAMYCIN PHOS-BENZOYL PEROX Inactive ZANTAC 75 75 MG TABS take 1 po BID ZANTAC 75 75 MG TABS 294240 RANITIDINE HCL Inactive PREDNISONE 20 MG TAB 2 tabs daily for 3 days, 1 t ab daily for 3 days, 1/2 tab daily for 2 days PREDNISONE 20 MG TAB 073046 PREDNISON E Inactive ZITHROMAX 250 MG TAB 2 po today, then 1 po q days 2-5 ZITHROMAX 250 MG TAB 6028194 AZITHROMYCIN Inactive ZITHROMAX 250 MG TAB 2 po today, then 1 po q days 2-5 ZITHROMAX 250 MG TAB 7706186 AZITHROMYCIN Inactive Immunizations Vaccine Administration Date Value [...] Measured Encounters Code Encounter Date Provider Facility CPT-48612 Level 3 Est. Patient 11:58:31 CDT Adrián dyson MD [facility] CPT-02257 Level 3 Est. Patient 09:06:35 CDT Adrián dyson MD [facility] CPT-91882 Level 3 Est. Patient 09:18:45 CDT Adrián dyson MD [facility] CPT-30295 Level 3 Est. Patient 09:13:22 CDT Adrián dyson MD [facility] CPT-99238 Level 3 Est. 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 Patient 14:00:53 CDT Uriel bhatia [facility] CPT-65945 Level 3 Est. Patient 20:00:09 CDT Terry jenkins DO [facility] CPT-67935 Level 3 Est. Patient 08:45:08 CDT Uriel bhatia [facility] CPT-70302 Level 3 Est. Patient 09:09:26 CDT Uriel hbatia [facility] CPT-78346 Level 3 Est. Patient 16:32:31 CDT Adrián dyson MD [facility] CPT-46380 Level 3 Est. Patient 09:35:27 PRINCIPAL PROCESS ENGINEER Norman BOYD [facility] CPT-16012 Level 2 Est. Patient 16:51:37 PRINCIPAL PROCESS ENGINEER Adrián dyson MD [facility] CPT-71995 Level 3 Est. Patient 10:00:11 PRINCIPAL PROCESS ENGINEER Ace Arriaza MD [facility] Procedures Code Procedure Name Date Entry Date Standard Desc ription CPT-J2930 Solu Medrol 125 mg (Methyl Prednisolone Sodium Succinate) 09:43:26 CDT CPT-57440 Abx/Therapy Injection 09:43:26 CDT CPT-J2930 Solu Medrol 125 mg (Methyl Prednisolone Sodium Succinate) 09:05:55 CDT CPT-89528 Abx/Therapy Injection 09:05:55 CDT CPT-47634 Venipuncture Draw Fee 14:01:33 CDT CPT-52494 EKG Trac and Interp 11:22:04 CDT CPT-24523 Venipuncture Draw Fee 10:53:35 CDT CPT-J2930 Solu Medrol 125 mg (Methyl Prednisolone Sodium Succinate) 09:29:26 CDT CPT-43798 Abx/Therapy Injection 09:29:26 CDT CPT-Cryo Cryotherapy 16:51:37 PRINCIPAL PROCESS ENGINEER
--- OUTSIDE RECORDS SUMMARY | 2019-07-22 19:41 | XMS REPORT | Clinical Summary ---
Author Author Yovanny, Clarisa Christopher Organization [facility] Address Unknown Phone Unavailable Allergies, Adverse [...] twice daily, for anxiety 2016 BUSPIRONE HCL 83354669120 Active Shannan Gibbs APRN Active PROZAC 20 MG CAP Take 1 tab daily. FLUOXETINE HCL 16110708689 Active Shannan Gibbs APRN Active PROZAC 10 MG CAP Take 1 tab daily for 1 week. Then increa se to 20mg daily. FLUOXETINE HCL 34493010071 Active Shannan Gibbs APRN Active CITALOPRAM HYDROBROMIDE 20 MG ORAL TABS take 1 tab po qday for depresion and anxiety. CITALOPRAM HYDROBROMIDE 53429230875 No L onger Active Shannan Gibbs APRN Active CYANOCOBALAMIN 1000 MCG/ML INJ SOLN 1 injection weekly for 1 month, than 1 a month for 2 months. recheck lab CYANOCOBALAMIN 36862615034 No Longer Active Shannan Gibbs APRN Active ULTRAM 50 MG TAB 1 TAB PO Q 6 HRS PRN HEADACHE TRAMADOL HCL 83065735863 Active Adrián Varghese MD Active ULTRAM 50 MG TAB take 1 tab po q 6 hrs prn headache pain TRAMADOL HCL 92703849776 No Longer Active Adrián Varghese MD Acti ve CLINDAMYCIN PHOSPHATE 2 % CREA apply cream to acne BID prn 06/14 CLINDAMYCIN PHOSPHATE 08873231880 No Longer Active Adrián Joseph Active MINOCYCLINE HCL 100 MG CAPS take one po BID MINOCYCLINE HCL 45560306134 No Longer Active Adrián Varghese MD Acti ve TRI-SPRINTEC 0.18/0.215/0.25 MG-35 MCG TABS 1 po qd as directed 201 07/04/00 NORGESTIM-ETH ESTRAD TRIPHASIC 90626493267 Active Adrián Varghese MD Active ZITHROMAX 250 MG TAB 2 po today, then 1 po q days 2-5 AZITHROMYCIN 36083771945 No Longer Active Adrián Varghese MD Acti ve ZITHROMAX 250 MG TAB 2 po today, then 1 po q days 2-5 AZITHROMYCIN 09030951688 No Longer Active Adrián Varghese MD Acti ve PREDNISONE 20 MG TAB 2 tabs daily for 3 days, 1 t ab daily for 3 days, 1/2 tab daily for 2 days PREDNISONE 05825930389 No Longer Active Adrián Varghese MD Active ZANTAC 75 75 MG TABS take 1 po BID RANITIDINE H CL 76193551118 No Longer Active Uriel BOYD Active BENZACLIN 1-5 % GEL apply to skin BID prn for acne 201 05/05/14 CLINDAMYCIN PHOS-BENZOYL PEROX 66544247952 No Longer Active Uriel BOYD Active BENZACLIN 1-5 % GEL apply to skin BID prn for acne 201 05/05/14 BENZACLIN 1-5 % GEL 141933 CLINDAMYCIN PHOS-BENZOYL PEROX Inactive MINOCYCLINE HCL 100 MG CAPS take one po BID MINOCYCLINE HCL 100 MG CAPS 556602 MINOCYCLINE HCL Inactive CLINDAMYCIN PHOSPHATE 2 % CREA apply cream to acne BID prn 06/14 CLINDAMYCIN PHOSPHATE 2 % CREA 668826 CLINDAMYCIN PHOSP HATE Inactive ULTRAM 50 MG TAB take 1 tab po q 6 hrs prn headache pain ULTRAM 50 MG TAB 979199 TRAMADOL HCL Inactive CYANOCOBALAMIN 1000 MCG/ML INJ SOLN 1 injection weekly for 1 month, than 1 a month for 2 months. recheck lab CYANOCOB ALAMIN 1000 MCG/ML INJ SOLN 276958 CYANOCOBALAMIN Inactive CITALOPRAM HYDROBROMIDE 20 MG ORAL TABS take 1 tab po qday for depresion and anxiety. CITALOPRAM HYDROBROMIDE 20 MG ORAL TABS 2 30046 CITALOPRAM HYDROBROMIDE Inactive ZANTAC 75 75 MG TABS take 1 po BID ZANTAC 75 75 MG TABS 059403 RANITIDINE HCL Inactive PREDNISONE 20 MG TAB 2 tabs daily for 3 days, 1 t ab daily for 3 days, 1/2 tab daily for 2 days PREDNISONE 20 MG TAB 336874 PREDNISON E Inactive ZITHROMAX 250 MG TAB 2 po today, then 1 po q days 2-5 ZITHROMAX 250 MG TAB 8568601 AZITHROMYCIN Inactive ZITHROMAX 250 MG TAB 2 po today, then 1 po q days 2-5 ZITHROMAX 250 MG TAB 3035926 AZITHROMYCIN Inactive Immunizations Vaccine Administration Date Value [...] - Chem istry sodium, serum 139 mmol/L 941-590 6076/09/06 carbon dioxide, venous blood 25.3 mmol/L 21.0-32 [...] 0.20-1.00 Encounters Code Encounter Date Provider Facility CPT-23522 Level 4 Est. Patient 13:54:09 CDT Adrián dyson MD [facility] CPT-28866 Level 3 Est. Patient 09:22:14 CDT Adrián dyson MD [facility]-99075 Level 3 Est. Patient 08:59:31 CDT Adrián dyson MD [facility] CPT-26943 Level 3 Est. Patient 11:58:31 CDT Adrián dyson MD [facility] CPT-27188 Level 3 Est. Patient 09:06:35 CDT Adrián dyson MD [facility] CPT-62255 Level 3 Est. Patient 09:18:45 CDT Adrián dyson MD [facility] CPT-03367 Level 3 Est. Patient 09:13:22 CDT Adrián dyson MD [facility] CPT-63614 Level 3 Est. Patient 18:04:31 CORE RESCUER Adrián dyson MD [facility] CPT-08533 Level 4 Est. Patient 14:00:53 CDT Uriel bhatia [facility] CPT-94479 Level 3 Est. Patient 20:00:09 CDT Terry jenkins DO [facility] CPT-93253 Level 3 Est. Patient 08:45:08 CDT Uriel bhatia [facility] CPT-52837 Level 3 Est. Patient 09:09:26 CDT Uriel bhatia [facility]-71004 Level 3 Est. Patient 16:32:31 CDT Adrián dyson MD [facility] CPT-24655 Level 3 Est. Patient 09:35:27 CORE RESCUER Norman BOYD [facility] CPT-20124 Level 2 Est. Patient 16:51:37 CORE RESCUER Adrián dyson MD [facility] CPT-53010 Level 3 Est. Patient 10:00:11 CORE RESCUER Ace Arriaza MD [facility] Procedures Code Procedure Name Date Entry Date Standard Desc ription CPT-98581 First Vx - Ix admin via ID I M or jet injects without counseling by physician 14:18:02 CDT CPT-61508 Gardasil 9 Intramuscular Suspension 1 4:18:02 CDT CPT-J3420 Vitamin B12 1000mcg (Cyanocobalamin) 16:30:23 CDT CPT-21749 Abx/Therapy Injection 16:30:23 CDT CPT-J3420 Vitamin B12 1000mcg (Cyanocobalamin) 16:09:42 CDT CPT-85001 Abx/Therapy Injection 16:09:42 CDT CPT-J3420 Vitamin B12 1000mcg (Cyanocobalamin) 15:22:47 CDT CPT-14665 Abx/Therapy Injection 15:22:47 CDT CPT-J3420 Vitamin B12 1000mcg (Cyanocobalamin) 17:00:35 CDT CPT-24867 Abx/Therapy Injection 17:00:35 CDT CPT-91819 First Vx - Ix admin via ID I M or jet injects without counseling by physician 16:04:17 CORE RESCUER CPT-47226 Gardasil 9 Intramuscular Suspension 1 6:04:17 CORE RESCUER CPT-86211 Venipuncture Draw Fee 09:40:26 CDT CPT-02477 [place] [facility] - LAB USE ONLY 09:40:26 CDT 11/30 CPT-18280 CBC with Diff - LAB USE ONLY 09:40:26 CDT 2 CPT-75578 Addl Vx - Ix admin via ID IM or jet injects without counseling by physician 09:40:21 CDT CPT-43143 Menactra Intramuscular Injectable 09:40:21 CDT CPT-01503 Addl Vx - Ix admin via ID IM or jet injects without counseling by physician 09:40:21 CDT CPT-04132 Gardasil 9 Intramuscular Suspension 0 9:40:21 CDT CPT-29449 First Vx - Ix admin via ID I M or jet injects without counseling by physician 09:40:21 CDT CPT-52541 Havrix Intramuscular Suspension 720 EL U /0.5ML 09:40:21 CDT CPT-J2930 Solu Medrol 125 mg (Methyl Prednisolone Sodium Succinate) 09:43:26 CDT CPT-90993 Abx/Therapy Injection 09:43:26 CDT CPT-J2930 Solu Medrol 125 mg (Methyl Prednisolone Sodium Succinate) 09:05:55 CDT CPT-96979 Abx/Therapy Injection 09:05:55 CDT CPT-98708 Venipuncture Draw Fee 14:01:33 CDT CPT-74894 EKG Trac and Interp 11:22:04 CDT CPT-96555 Venipuncture Draw Fee 10:53:35 CDT CPT-J2930 Solu Medrol 125 mg (Methyl Prednisolone Sodium Succinate) 09:29:26 CDT CPT-36594 Abx/Therapy Injection 09:29:26 CDT CPT-Cryo Cryotherapy 16:51:37 CORE RESCUER
--- OUTSIDE RECORDS SUMMARY | 2019-07-22 19:41 | XMS REPORT | Clinical Summary ---
[...] Q 6 HRS PRN HEADACHE TRAMADOL HCL 03894352153 Active Adrián Varghese MD Active CYANOCOBALAMIN 1000 MCG/ML INJ SOLN 1 injection weekly for 1 month, than 1 a month for 2 months. recheck lab CYANOCOBALAMIN 11629910721 Active Samreen Cristo Active CITALOPRAM HYDROBROMIDE 20 MG ORAL TABS take 1 tab po qday for depresion and anxiety. CITALOPRAM HYDROBROMIDE 64385552358 Active Adrián Varghese MD Active ULTRAM 50 MG TAB take 1 tab po q 6 hrs prn headache pain TRAMADOL HCL 09926029561 No Longer Active Adrián Varghese MD Acti ve CLINDAMYCIN PHOSPHATE 2 % CREA apply cream to acne BID prn 06/14 CLINDAMYCIN PHOSPHATE 38527593086 No Longer Active Adrián Joseph Active MINOCYCLINE HCL 100 MG CAPS take one po BID MINOCYCLINE HCL 49570689377 No Longer Active Adrián Varghese MD Acti ve TRI-SPRINTEC 0.18/0.215/0.25 MG-35 MCG TABS 1 po qd as directed 201 07/04/00 NORGESTIM-ETH ESTRAD TRIPHASIC 54393458417 Active Adrián Varghese MD Active ZITHROMAX 250 MG TAB 2 po today, then 1 po q days 2-5 AZITHROMYCIN 66547138711 No Longer Active Adrián Varghese MD Acti ve ZITHROMAX 250 MG TAB 2 po today, then 1 po q days 2-5 AZITHROMYCIN 83842738807 No Longer Active Adrián Varghese MD Acti ve PREDNISONE 20 MG TAB 2 tabs daily for 3 days, 1 t ab daily for 3 days, 1/2 tab daily for 2 days PREDNISONE 39280402812 No Longer Active Adrián Varghese MD Active ZANTAC 75 75 MG TABS take 1 po BID RANITIDINE H CL 28578051820 No Longer Active Uriel BOYD Active BENZACLIN 1-5 % GEL apply to skin BID prn for acne 201 05/05/14 CLINDAMYCIN PHOS-BENZOYL PEROX 24964259324 No Longer Active Uriel BOYD Active BENZACLIN 1-5 % GEL apply to skin BID prn for acne 201 05/05/14 BENZACLIN 1-5 % GEL 974682 CLINDAMYCIN PHOS-BENZOYL PEROX Inactive MINOCYCLINE HCL 100 MG CAPS take one po BID MINOCYCLINE HCL 100 MG CAPS 993148 MINOCYCLINE HCL Inactive CLINDAMYCIN PHOSPHATE 2 % CREA apply cream to acne BID prn 06/14 CLINDAMYCIN PHOSPHATE 2 % CREA 234567 CLINDAMYCIN PHOSP HATE Inactive ULTRAM 50 MG TAB take 1 tab po q 6 hrs prn headache pain ULTRAM 50 MG TAB 188021 TRAMADOL HCL Inactive ZANTAC 75 75 MG TABS take 1 po BID ZANTAC 75 75 MG TABS 047110 RANITIDINE HCL Inactive PREDNISONE 20 MG TAB 2 tabs daily for 3 days, 1 t ab daily for 3 days, 1/2 tab daily for 2 days PREDNISONE 20 MG TAB 288301 PREDNISON E Inactive ZITHROMAX 250 MG TAB 2 po today, then 1 po q days 2-5 ZITHROMAX 250 MG TAB 2266932 AZITHROMYCIN Inactive ZITHROMAX 250 MG TAB 2 po today, then 1 po q days 2-5 ZITHROMAX 250 MG TAB 4020559 AZITHROMYCIN Inactive Immunizations Vaccine Administration Date Value [...] 11 .6-14.8 platelet count 351 10^3/MM^3 10*3/mm3 731-769 5676/10/03 erythrocyte (RBC) count 4.58 10^6/MM^3 10*6/mm3 4.04-5.4 8 lymphocytes as percent of blood leukocytes 34.8 % 20.5-51.1 monocytes as percent of blood leukocytes 5.9 % 1.7-9.3 neutrophils as percent of blood leukocytes 57.2 % 42.2-75.2 leukocyte count, blood 5.9 10^3/MM^3 10*3/mm3 4.6-10.2 Encounters Code Encounter Date Provider Facility CPT-61003 Level 4 Est. Patient 13:54:09 CDT Adrián dyson MD [facility] CPT-26113 Level 3 Est. Patient 09:22:14 CDT Adrián dyson MD [facility]-91205 Level 3 Est. Patient 08:59:31 CDT Adrián dyson MD [facility]-19499 Level 3 Est. Patient 11:58:31 CDT Adrián dyson MD [facility] CPT-89708 Level 3 Est. Patient 09:06:35 CDT Adrián dyson MD [facility] CPT-89506 Level 3 Est. Patient 09:18:45 CDT Adrián dyson MD [facility] CPT-54558 Level 3 Est. Patient 09:13:22 CDT Adrián dyson MD [facility] CPT-95740 Level 3 Est. 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 Patient 14:00:53 CDT Uriel bhatia [facility] CPT-13307 Level 3 Est. Patient 20:00:09 CDT Terry jenkins DO [facility] CPT-85531 Level 3 Est. Patient 08:45:08 CDT Uriel bhatia [facility] CPT-18067 Level 3 Est. Patient 09:09:26 CDT Uriel Ramirezclarissa bhatia [facility] CPT-15288 Level 3 Est. Patient 16:32:31 CDT Adrián dyson MD [facility] CPT-05143 Level 3 Est. Patient 09:35:27 LITIGATION LEGAL ASSISTANT Norman Aguilararnulfo BOYD [facility] CPT-87622 Level 2 Est. Patient 16:51:37 LITIGATION LEGAL ASSISTANT Adrián dyson MD [facility] CPT-90474 Level 3 Est. Patient 10:00:11 LITIGATION LEGAL ASSISTANT Ace Arriaza MD [facility] Procedures Code Procedure Name Date Entry Date Standard Desc ription CPT-J3420 Vitamin B12 1000mcg (Cyanocobalamin) 16:30:23 CDT CPT-15984 Abx/Therapy Injection 16:30:23 CDT CPT-J3420 Vitamin B12 1000mcg (Cyanocobalamin) 16:09:42 CDT CPT-14007 Abx/Therapy Injection 16:09:42 CDT CPT-J3420 Vitamin B12 1000mcg (Cyanocobalamin) 15:22:47 CDT CPT-00493 Abx/Therapy Injection 15:22:47 CDT CPT-J3420 Vitamin B12 1000mcg (Cyanocobalamin) 17:00:35 CDT CPT-36886 Abx/Therapy Injection 17:00:35 CDT CPT-68239 First Vx - Ix admin via ID I M or jet injects without counseling by physician 16:04:17 LITIGATION LEGAL ASSISTANT CPT-40363 Gardasil 9 Intramuscular Suspension 1 6:04:17 LITIGATION LEGAL ASSISTANT CPT-28062 Venipuncture Draw Fee 09:40:26 CDT CPT-22620 [place] [facility] - LAB USE ONLY 09:40:26 CDT 11/30 CPT-07435 CBC with Diff - LAB USE ONLY 09:40:26 CDT 2 CPT-67308 Addl Vx - Ix admin via ID IM or jet injects without counseling by physician 09:40:21 CDT CPT-76011 Menactra Intramuscular Injectable 09:40:21 CDT CPT-03936 Addl Vx - Ix admin via ID IM or jet injects without counseling by physician 09:40:21 CDT CPT-10734 Gardasil 9 Intramuscular Suspension 0 9:40:21 CDT CPT-67874 First Vx - Ix admin via ID I M or jet injects without counseling by physician 09:40:21 CDT CPT-02601 Havrix Intramuscular Suspension 720 EL U /0.5ML 09:40:21 CDT CPT-J2930 Solu Medrol 125 mg (Methyl Prednisolone Sodium Succinate) 09:43:26 CDT CPT-75342 Abx/Therapy Injection 09:43:26 CDT CPT-J2930 Solu Medrol 125 mg (Methyl Prednisolone Sodium Succinate) 09:05:55 CDT CPT-38056 Abx/Therapy Injection 09:05:55 CDT CPT-44666 Venipuncture Draw Fee 14:01:33 CDT CPT-66511 EKG Trac and Interp 11:22:04 CDT CPT-36710 Venipuncture Draw Fee 10:53:35 CDT CPT-J2930 Solu Medrol 125 mg (Methyl Prednisolone Sodium Succinate) 09:29:26 CDT CPT-06869 Abx/Therapy Injection 09:29:26 CDT CPT-Cryo Cryotherapy 16:51:37 LITIGATION LEGAL ASSISTANT
--- OUTSIDE RECORDS SUMMARY | 2019-07-22 19:41 | XMS REPORT | Clinical Summary ---
Author Author Yovanny, Clarisa Christopher Organization [facility] Address Unknown Phone Unavailable Allergies, Adverse [...] increa se to 20mg daily. FLUOXETINE HCL 05847130077 No Longer Active Hubert WARD Active PROZAC 20 MG CAP Take 1 tab daily FLUOXETINE HCL 09084424417 Active Shannan Gibbs APRN Active BUSPIRONE HCL 7.5 MG ORAL TABS 1 pill twice daily, for anxiety 2016 BUSPIRONE HCL 82950791909 Active Shannan Gibbs APRN Active CITALOPRAM HYDROBROMIDE 20 MG ORAL TABS take 1 tab po qday for depresion and anxiety. CITALOPRAM HYDROBROMIDE 54735156740 No L onger Active Shannan Gibbs APRN Active CYANOCOBALAMIN 1000 MCG/ML INJ SOLN 1 injection weekly for 1 month, than 1 a month for 2 months. recheck lab CYANOCOBALAMIN 54160152271 No Longer Active Shannan Gibbs APRN Active ULTRAM 50 MG TAB 1 TAB PO Q 6 HRS PRN HEADACHE TRAMADOL HCL 90340879345 Active Adrián Varghese MD Active ULTRAM 50 MG TAB take 1 tab po q 6 hrs prn headache pain TRAMADOL HCL 77639800799 No Longer Active Adrián Varghese MD Acti ve CLINDAMYCIN PHOSPHATE 2 % CREA apply cream to acne BID prn 06/14 CLINDAMYCIN PHOSPHATE 39792685979 No Longer Active Adrián Joseph Active MINOCYCLINE HCL 100 MG CAPS take one po BID MINOCYCLINE HCL 93229977940 No Longer Active Adrián Varghese MD Acti ve TRI-SPRINTEC 0.18/0.215/0.25 MG-35 MCG TABS 1 po qd as directed 201 07/04/00 NORGESTIM-ETH ESTRAD TRIPHASIC 99796246598 Active Shannan Gibbs SUEDING MACHINE OPERATOR Active ZITHROMAX 250 MG TAB 2 po today, then 1 po q days 2-5 AZITHROMYCIN 21072755526 No Longer Active Adrián Varghese MD Acti ve ZITHROMAX 250 MG TAB 2 po today, then 1 po q days 2-5 AZITHROMYCIN 17434919860 No Longer Active Adrián Varghese MD Acti ve PREDNISONE 20 MG TAB 2 tabs daily for 3 days, 1 t ab daily for 3 days, 1/2 tab daily for 2 days PREDNISONE 40489446095 No Longer Active Adrián Varghese MD Active ZANTAC 75 75 MG TABS take 1 po BID RANITIDINE H CL 42443786117 No Longer Active Uriel BOYD Active BENZACLIN 1-5 % GEL apply to skin BID prn for acne 201 05/05/14 CLINDAMYCIN PHOS-BENZOYL PEROX 53275754892 No Longer Active Uriel BOYD Active BENZACLIN 1-5 % GEL apply to skin BID prn for acne 201 05/05/14 BENZACLIN 1-5 % GEL 392312 CLINDAMYCIN PHOS-BENZOYL PEROX Inactive MINOCYCLINE HCL 100 MG CAPS take one po BID MINOCYCLINE HCL 100 MG CAPS 899575 MINOCYCLINE HCL Inactive CLINDAMYCIN PHOSPHATE 2 % CREA apply cream to acne BID prn 06/14 CLINDAMYCIN PHOSPHATE 2 % CREA 771676 CLINDAMYCIN PHOSP HATE Inactive ULTRAM 50 MG TAB take 1 tab po q 6 hrs prn headache pain ULTRAM 50 MG TAB 287697 TRAMADOL HCL Inactive CYANOCOBALAMIN 1000 MCG/ML INJ SOLN 1 injection weekly for 1 month, than 1 a month for 2 months. recheck lab CYANOCOB ALAMIN 1000 MCG/ML INJ SOLN 337816 CYANOCOBALAMIN Inactive CITALOPRAM HYDROBROMIDE 20 MG ORAL TABS take 1 tab po qday for depresion and anxiety. CITALOPRAM HYDROBROMIDE 20 MG ORAL TABS 2 39172 CITALOPRAM HYDROBROMIDE Inactive PROZAC 10 MG CAP Take 1 tab daily for 1 week. Then increa se to 20mg daily. PROZAC 10 MG CAP 831829 FLUOXETINE HCL Inactive ZANTAC 75 75 MG TABS take 1 po BID ZANTAC 75 75 MG TABS 502283 RANITIDINE HCL Inactive PREDNISONE 20 MG TAB 2 tabs daily for 3 days, 1 t ab daily for 3 days, 1/2 tab daily for 2 days PREDNISONE 20 MG TAB 868823 PREDNISON E Inactive ZITHROMAX 250 MG TAB 2 po today, then 1 po q days 2-5 ZITHROMAX 250 MG TAB 757443 AZITHROMYCIN Inactive ZITHROMAX 250 MG TAB 2 po today, then 1 po q days 2-5 ZITHROMAX 250 MG TAB 198435 AZITHROMYCIN Inactive Immunizations Vaccine Administration Date Value [...] - Chem istry sodium, serum 139 mmol/L 068-472 4460/09/06 carbon dioxide, venous blood 25.3 mmol/L 21.0-32 [...] 0.20-1.00 Encounters Code Encounter Date Provider Facility CPT-95604 Level 4 Est. Patient 11:10:55 CDT Hubert [facility] CPT-30077 Level 4 Est. Patient 14:07:40 CDT Hubert SUEDING MACHINE OPERATOR [facility] CPT-08159 Level 4 Est. Patient 13:54:09 CDT Adrián dyson MD [facility] CPT-09375 Level 3 Est. Patient 09:22:14 CDT Adrián dyson MD [facility] CPT-51226 Level 3 Est. Patient 08:59:31 CDT Adrián dyson MD [facility] CPT-99243 Level 3 Est. Patient 11:58:31 CDT Adrián dyson MD [facility] CPT-32236 Level 3 Est. Patient 09:06:35 CDT Adrián dyson MD [facility] CPT-52829 Level 3 Est. Patient 09:18:45 CDT Adrián dyson MD [facility] CPT-81221 Level 3 Est. Patient 09:13:22 CDT Adrián dyson MD [facility] CPT-20312 Level 3 Est. Patient 18:04:31 WET END OPERATOR Adrián dyson MD [facility] CPT-70675 Level 4 Est. Patient 14:00:53 CDT Uriel bhatia [facility] CPT-16893 Level 3 Est. Patient 20:00:09 CDT Terry jenkins DO [facility] CPT-31304 Level 3 Est. Patient 08:45:08 CDT Uriel bhatia [facility] CPT-26537 Level 3 Est. Patient 09:09:26 CDT Uriel Ivy sriram [facility] CPT-96094 Level 3 Est. Patient 16:32:31 CDT Adrián dyson MD [facility] CPT-43126 Level 3 Est. Patient 09:35:27 WET END OPERATOR Norman fuentes [facility] CPT-70245 Level 2 Est. Patient 16:51:37 WET END OPERATOR Adrián dyson MD [facility] CPT-58929 Level 3 Est. Patient 10:00:11 WET END OPERATOR Ace Arriaza MD [facility] Procedures Code Procedure Name Date Entry Date Standard Desc ription CPT-54977 First Vx - Ix admin via ID I M or jet injects without counseling by physician 14:18:02 CDT CPT-16487 Gardasil 9 Intramuscular Suspension 1 4:18:02 CDT CPT-J3420 Vitamin B12 1000mcg (Cyanocobalamin) 16:30:23 CDT CPT-42890 Abx/Therapy Injection 16:30:23 CDT CPT-J3420 Vitamin B12 1000mcg (Cyanocobalamin) 16:09:42 CDT CPT-41362 Abx/Therapy Injection 16:09:42 CDT CPT-J3420 Vitamin B12 1000mcg (Cyanocobalamin) 15:22:47 CDT CPT-32794 Abx/Therapy Injection 15:22:47 CDT CPT-J3420 Vitamin B12 1000mcg (Cyanocobalamin) 17:00:35 CDT CPT-90405 Abx/Therapy Injection 17:00:35 CDT CPT-42391 First Vx - Ix admin via ID I M or jet injects without counseling by physician 16:04:17 WET END OPERATOR CPT-48208 Gardasil 9 Intramuscular Suspension 1 6:04:17 WET END OPERATOR CPT-83549 Venipuncture Draw Fee 09:40:26 CDT CPT-62817 [place] - LAB USE ONLY 09:40:26 CDT 11/30 CPT-69045 CBC with Diff - LAB USE ONLY 09:40:26 CDT 2 CPT-77698 Addl Vx - Ix admin via ID IM or jet injects without counseling by physician 09:40:21 CDT CPT-06702 Menactra Intramuscular Injectable 09:40:21 CDT CPT-55964 Addl Vx - Ix admin via ID IM or jet injects without counseling by physician 09:40:21 CDT CPT-55789 Gardasil 9 Intramuscular Suspension 0 9:40:21 CDT CPT-21915 First Vx - Ix admin via ID I M or jet injects without counseling by physician 09:40:21 CDT CPT-66659 Havrix Intramuscular Suspension 720 EL U /0.5ML 09:40:21 CDT CPT-J2930 Solu Medrol 125 mg (Methyl Prednisolone Sodium Succinate) 09:43:26 CDT CPT-49018 Abx/Therapy Injection 09:43:26 CDT CPT-J2930 Solu Medrol 125 mg (Methyl Prednisolone Sodium Succinate) 09:05:55 CDT CPT-44764 Abx/Therapy Injection 09:05:55 CDT CPT-89699 Venipuncture Draw Fee 14:01:33 CDT CPT-08683 EKG Trac and Interp 11:22:04 CDT CPT-45212 Venipuncture Draw Fee 10:53:35 CDT CPT-J2930 Solu Medrol 125 mg (Methyl Prednisolone Sodium Succinate) 09:29:26 CDT CPT-63892 Abx/Therapy Injection 09:29:26 CDT CPT-Cryo Cryotherapy 16:51:37 WET END OPERATOR
--- OUTSIDE RECORDS SUMMARY | 2019-07-22 19:41 | XMS REPORT | Clinical Summary ---
[...] Joseph Routine infant or child health check Pharyngitis-Acute ICD-462 Inactive Adrián leavitt MD Medication List Medication Instructions Start Date Stop Date Generic Name [facility] Status Provider Patient Instruction CLINDAMYCIN PHOSPHATE 2 % CREA apply cream to acne BID prn 06/14 CLINDAMYCIN PHOSPHATE 43573170923 No Longer Active Adrián Joseph Active MINOCYCLINE HCL 100 MG CAPS take one po BID MINOCYCLINE HCL 24892358227 No Longer Active Adrián Varghese MD Acti ve TRI-SPRINTEC 0.18/0.215/0.25 MG-35 MCG TABS 1 po qd as directed 201 07/04/00 NORGESTIM-ETH ESTRAD TRIPHASIC 36930161062 Active Adrián Varghese MD Active ZITHROMAX 250 MG TAB 2 po today, then 1 po q days 2-5 AZITHROMYCIN 48483684885 No Longer Active Adrián Varghese MD Acti ve ULTRAM 50 MG TAB take 1 tab po q 6 hrs prn headache pain TRAMADOL HCL 44588031413 Active Adrián Varghese MD Active ZITHROMAX 250 MG TAB 2 po today, then 1 po q days 2-5 AZITHROMYCIN 32797380070 No Longer Active Adrián Varghese MD Acti ve PREDNISONE 20 MG TAB 2 tabs daily for 3 days, 1 t ab daily for 3 days, 1/2 tab daily for 2 days PREDNISONE 82690440341 No Longer Active Adrián Varghese MD Active ZANTAC 75 75 MG TABS take 1 po BID RANITIDINE H CL 82706119527 No Longer Active Uriel BOYD Active BENZACLIN 1-5 % GEL apply to skin BID prn for acne 201 05/05/14 CLINDAMYCIN PHOS-BENZOYL PEROX 33413715368 No Longer Active Uriel BOYD Active BENZACLIN 1-5 % GEL apply to skin BID prn for acne 201 05/05/14 BENZACLIN 1-5 % GEL 424246 CLINDAMYCIN PHOS-BENZOYL PEROX Inactive MINOCYCLINE HCL 100 MG CAPS take one po BID MINOCYCLINE HCL 100 MG CAPS 957400 MINOCYCLINE HCL Inactive CLINDAMYCIN PHOSPHATE 2 % CREA apply cream to acne BID prn 06/14 CLINDAMYCIN PHOSPHATE 2 % CREA 042134 CLINDAMYCIN PHOSP HATE Inactive ZANTAC 75 75 MG TABS take 1 po BID ZANTAC 75 75 MG TABS 123097 RANITIDINE HCL Inactive PREDNISONE 20 MG TAB 2 tabs daily for 3 days, 1 t ab daily for 3 days, 1/2 tab daily for 2 days PREDNISONE 20 MG TAB 750187 PREDNISON E Inactive ZITHROMAX 250 MG TAB 2 po today, then 1 po q days 2-5 ZITHROMAX 250 MG TAB 1255757 AZITHROMYCIN Inactive ZITHROMAX 250 MG TAB 2 po today, then 1 po q days 2-5 ZITHROMAX 250 MG TAB 6653937 AZITHROMYCIN Inactive Immunizations Vaccine Administration Date Value [...] Range Description blood pressure, diastolic - 8462-4 62 mm[Hg] BP jones blood pressure, systolic - 8480-6 114 mm[Hg] BP sys pulse rate E&M - 8867-4 85 /min H eart rate temperature E&M 98.5 [degF] Body temp erature weight E&M - 3141-9 139.3 [lb_av] Weigh t Measured Encounters Code Encounter Date Provider Facility CPT-97138 Level 3 Est. Patient 08:59:31 CDT Adrián dyson MD [facility] CPT-49642 Level 3 Est. Patient 11:58:31 CDT Adrián dyson MD [facility] CPT-05788 Level 3 Est. Patient 09:06:35 CDT Adrián dyson MD [facility] CPT-55498 Level 3 Est. Patient 09:18:45 CDT Adrián dyson MD [facility] CPT-31468 Level 3 Est. Patient 09:13:22 CDT Adrián dyson MD [facility] CPT-60402 Level 3 Est. Patient 18:04:31 SATELLITE INSTALLER Adrián dyson MD [facility] CPT-21158 Level 4 Est. Patient 14:00:53 CDT Uriel bhatia [facility] CPT-43282 Level 3 Est. Patient 20:00:09 CDT Terry jenkins DO [facility] CPT-31183 Level 3 Est. Patient 08:45:08 CDT Uriel Ramirezclarissa bhatia [facility] CPT-09395 Level 3 Est. Patient 09:09:26 CDT Richcristian Ahsleyclarissa bhatia [facility] CPT-35193 Level 3 Est. Patient 16:32:31 CDT Adrián dyson MD [facility] CPT-50566 Level 3 Est. Patient 09:35:27 SATELLITE INSTALLER Norman fuentes [facility] CPT-77645 Level 2 Est. Patient 16:51:37 SATELLITE INSTALLER Adrián dyson MD [facility] CPT-63947 Level 3 Est. Patient 10:00:11 SATELLITE INSTALLER Ace Arriaza MD [facility] Procedures Code Procedure Name Date Entry Date Standard Desc ription CPT-66993 Addl Vx - Ix admin via ID IM or jet injects without counseling by physician 09:40:21 CDT CPT-45484 Menactra Intramuscular Injectable 09:40:21 CDT CPT-08470 Addl Vx - Ix admin via ID IM or jet injects without counseling by physician 09:40:21 CDT CPT-70639 Gardasil 9 Intramuscular Suspension 0 9:40:21 CDT CPT-42170 First Vx - Ix admin via ID I M or jet injects without counseling by physician 09:40:21 CDT CPT-33980 Havrix Intramuscular Suspension 720 EL U /0.5ML 09:40:21 CDT CPT-J2930 Solu Medrol 125 mg (Methyl Prednisolone Sodium Succinate) 09:43:26 CDT CPT-15776 Abx/Therapy Injection 09:43:26 CDT CPT-J2930 Solu Medrol 125 mg (Methyl Prednisolone Sodium Succinate) 09:05:55 CDT CPT-53727 Abx/Therapy Injection 09:05:55 CDT CPT-65991 Venipuncture Draw Fee 14:01:33 CDT CPT-76899 EKG Trac and Interp 11:22:04 CDT CPT-69400 Venipuncture Draw Fee 10:53:35 CDT CPT-J2930 Solu Medrol 125 mg (Methyl Prednisolone Sodium Succinate) 09:29:26 CDT CPT-49421 Abx/Therapy Injection 09:29:26 CDT CPT-Cryo Cryotherapy 16:51:37 SATELLITE INSTALLER
--- OUTSIDE RECORDS SUMMARY | 2019-07-22 19:41 | XMS REPORT | Clinical Summary ---
Author Author Yovanny, Clarisa Christopher Organization [facility] Address Unknown Phone Unavailable Allergies, [...] Q 6 HRS PRN HEADACHE TRAMADOL HCL 57765558770 Active Adrián Varghese MD Active CYANOCOBALAMIN 1000 MCG/ML INJ SOLN 1 injection weekly for 1 month, than 1 a month for 2 months. recheck lab CYANOCOBALAMIN 15275419782 Active Samreen Cristo Active CITALOPRAM HYDROBROMIDE 20 MG ORAL TABS take 1 tab po qday for depresion and anxiety. CITALOPRAM HYDROBROMIDE 01698881508 Active Adrián Varghese MD Active ULTRAM 50 MG TAB take 1 tab po q 6 hrs prn headache pain TRAMADOL HCL 21141951390 No Longer Active Adrián Varghese MD Acti ve CLINDAMYCIN PHOSPHATE 2 % CREA apply cream to acne BID prn 06/14 CLINDAMYCIN PHOSPHATE 41752920964 No Longer Active Adrián Joseph Active MINOCYCLINE HCL 100 MG CAPS take one po BID MINOCYCLINE HCL 21001060243 No Longer Active Adrián Varghese MD Acti ve TRI-SPRINTEC 0.18/0.215/0.25 MG-35 MCG TABS 1 po qd as directed 201 07/04/00 NORGESTIM-ETH ESTRAD TRIPHASIC 95055610321 Active Adrián Varghese MD Active ZITHROMAX 250 MG TAB 2 po today, then 1 po q days 2-5 AZITHROMYCIN 09883504589 No Longer Active Adrián Varghese MD Acti ve ZITHROMAX 250 MG TAB 2 po today, then 1 po q days 2-5 AZITHROMYCIN 08550755357 No Longer Active Adrián Varghese MD Acti ve PREDNISONE 20 MG TAB 2 tabs daily for 3 days, 1 t ab daily for 3 days, 1/2 tab daily for 2 days PREDNISONE 29559959438 No Longer Active Adrián Varghese MD Active ZANTAC 75 75 MG TABS take 1 po BID RANITIDINE H CL 31498760704 No Longer Active Uriel BOYD Active BENZACLIN 1-5 % GEL apply to skin BID prn for acne 201 05/05/14 CLINDAMYCIN PHOS-BENZOYL PEROX 80094247355 No Longer Active Uriel BOYD Active BENZACLIN 1-5 % GEL apply to skin BID prn for acne 201 05/05/14 BENZACLIN 1-5 % GEL 870814 CLINDAMYCIN PHOS-BENZOYL PEROX Inactive MINOCYCLINE HCL 100 MG CAPS take one po BID MINOCYCLINE HCL 100 MG CAPS 113810 MINOCYCLINE HCL Inactive CLINDAMYCIN PHOSPHATE 2 % CREA apply cream to acne BID prn 06/14 CLINDAMYCIN PHOSPHATE 2 % CREA 886595 CLINDAMYCIN PHOSP HATE Inactive ULTRAM 50 MG TAB take 1 tab po q 6 hrs prn headache pain ULTRAM 50 MG TAB 303174 TRAMADOL HCL Inactive ZANTAC 75 75 MG TABS take 1 po BID ZANTAC 75 75 MG TABS 087361 RANITIDINE HCL Inactive PREDNISONE 20 MG TAB 2 tabs daily for 3 days, 1 t ab daily for 3 days, 1/2 tab daily for 2 days PREDNISONE 20 MG TAB 211368 PREDNISON E Inactive ZITHROMAX 250 MG TAB 2 po today, then 1 po q days 2-5 ZITHROMAX 250 MG TAB 4076063 AZITHROMYCIN Inactive ZITHROMAX 250 MG TAB 2 po today, then 1 po q days 2-5 ZITHROMAX 250 MG TAB 0962869 AZITHROMYCIN Inactive Immunizations Vaccine Administration Date Value [...] 142-424 Encounters Code Encounter Date Provider Facility CPT-99361 Level 4 Est. Patient 13:54:09 CDT Adrián dyson MD [facility] CPT-23231 Level 3 Est. Patient 09:22:14 CDT Adrián dyson MD [facility]-47041 Level 3 Est. Patient 08:59:31 CDT Adrián dyson MD [facility]-95264 Level 3 Est. Patient 11:58:31 CDT Adrián dyson MD [facility] CPT-85632 Level 3 Est. Patient 09:06:35 CDT Adrián dyson MD [facility] CPT-18268 Level 3 Est. Patient 09:18:45 CDT Adrián dyson MD [facility] CPT-78990 Level 3 Est. Patient 09:13:22 CDT Adrián dyson MD [facility] CPT-03106 Level 3 Est. Patient 18:04:31 DEVELOPMENT SPEC Adrián dyson MD [facility] CPT-29083 Level 4 Est. Patient 14:00:53 CDT Uriel bhatia [facility] CPT-73253 Level 3 Est. Patient 20:00:09 CDT Terry jenkins DO [facility] CPT-33049 Level 3 Est. Patient 08:45:08 CDT Uriel bhatia [facility] CPT-64063 Level 3 Est. Patient 09:09:26 CDT Richcristian Ramirezclarissa bhatia [facility] CPT-98378 Level 3 Est. Patient 16:32:31 CDT Adrián dyson MD [facility] CPT-83566 Level 3 Est. Patient 09:35:27 DEVELOPMENT SPEC Norman Aguilararnulfo BOYD [facility] CPT-32662 Level 2 Est. Patient 16:51:37 DEVELOPMENT SPEC Adrián dyson MD [facility] CPT-16955 Level 3 Est. Patient 10:00:11 DEVELOPMENT SPEC Ace Arriaza MD [facility] Procedures Code Procedure Name Date Entry Date Standard Desc ription CPT-J3420 Vitamin B12 1000mcg (Cyanocobalamin) 15:22:47 CDT CPT-57914 Abx/Therapy Injection 15:22:47 CDT CPT-J3420 Vitamin B12 1000mcg (Cyanocobalamin) 17:00:35 CDT CPT-78255 Abx/Therapy Injection 17:00:35 CDT CPT-17699 First Vx - Ix admin via ID I M or jet injects without counseling by physician 16:04:17 DEVELOPMENT SPEC CPT-27761 Gardasil 9 Intramuscular Suspension 1 6:04:17 DEVELOPMENT SPEC CPT-55849 Venipuncture Draw Fee 09:40:26 CDT CPT-88034 [place] - LAB USE ONLY 09:40:26 CDT 11/30 CPT-87949 CBC with Diff - LAB USE ONLY 09:40:26 CDT 2 CPT-36854 Addl Vx - Ix admin via ID IM or jet injects without counseling by physician 09:40:21 CDT CPT-43291 Menactra Intramuscular Injectable 09:40:21 CDT CPT-91872 Addl Vx - Ix admin via ID IM or jet injects without counseling by physician 09:40:21 CDT CPT-74163 Gardasil 9 Intramuscular Suspension 0 9:40:21 CDT CPT-61967 First Vx - Ix admin via ID I M or jet injects without counseling by physician 09:40:21 CDT CPT-03449 Havrix Intramuscular Suspension 720 EL U /0.5ML 09:40:21 CDT CPT-J2930 Solu Medrol 125 mg (Methyl Prednisolone Sodium Succinate) 09:43:26 CDT CPT-91643 Abx/Therapy Injection 09:43:26 CDT CPT-J2930 Solu Medrol 125 mg (Methyl Prednisolone Sodium Succinate) 09:05:55 CDT CPT-83944 Abx/Therapy Injection 09:05:55 CDT CPT-99094 Venipuncture Draw Fee 14:01:33 CDT CPT-78283 EKG Trac and Interp 11:22:04 CDT CPT-13156 Venipuncture Draw Fee 10:53:35 CDT CPT-J2930 Solu Medrol 125 mg (Methyl Prednisolone Sodium Succinate) 09:29:26 CDT CPT-91851 Abx/Therapy Injection 09:29:26 CDT CPT-Cryo Cryotherapy 16:51:37 DEVELOPMENT SPEC
--- OUTSIDE RECORDS SUMMARY | 2019-07-22 19:42 | XMS REPORT | Clinical Summary ---
Author Author Yovanny, Clarisa Christopher Organization [facility] Address Unknown Phone Unavailable Allergies, Adverse [...] to acne BID prn 06/14 CLINDAMYCIN PHOSPHATE 53204220834 No Longer Active Adrián Joseph Active MINOCYCLINE HCL 100 MG CAPS take one po BID MINOCYCLINE HCL 95470858916 No Longer Active Adrián Varghese MD Acti ve TRI-SPRINTEC 0.18/0.215/0.25 MG-35 MCG TABS 1 po qd as directed 201 07/04/00 NORGESTIM-ETH ESTRAD TRIPHASIC 28900158334 Active Adrián Varghese MD Active ZITHROMAX 250 MG TAB 2 po today, then 1 po q days 2-5 AZITHROMYCIN 97812952385 No Longer Active Adrián Varghese MD Acti ve ULTRAM 50 MG TAB take 1 tab po q 6 hrs prn headache pain TRAMADOL HCL 30230526725 Active Adrián Varghese MD Active ZITHROMAX 250 MG TAB 2 po today, then 1 po q days 2-5 AZITHROMYCIN 28178680827 No Longer Active Adrián Varghese MD Acti ve PREDNISONE 20 MG TAB 2 tabs daily for 3 days, 1 t ab daily for 3 days, 1/2 tab daily for 2 days PREDNISONE 94924880915 No Longer Active Adrián Varghese MD Active ZANTAC 75 75 MG TABS take 1 po BID RANITIDINE H CL 13463999092 No Longer Active Uriel BOYD Active BENZACLIN 1-5 % GEL apply to skin BID prn for acne 201 05/05/14 CLINDAMYCIN PHOS-BENZOYL PEROX 25632722271 No Longer Active Uriel BOYD Active BENZACLIN 1-5 % GEL apply to skin BID prn for acne 201 05/05/14 BENZACLIN 1-5 % GEL 201520 CLINDAMYCIN PHOS-BENZOYL PEROX Inactive MINOCYCLINE HCL 100 MG CAPS take one po BID MINOCYCLINE HCL 100 MG CAPS 903732 MINOCYCLINE HCL Inactive CLINDAMYCIN PHOSPHATE 2 % CREA apply cream to acne BID prn 06/14 CLINDAMYCIN PHOSPHATE 2 % CREA 875003 CLINDAMYCIN PHOSP HATE Inactive ZANTAC 75 75 MG TABS take 1 po BID ZANTAC 75 75 MG TABS 428353 RANITIDINE HCL Inactive PREDNISONE 20 MG TAB 2 tabs daily for 3 days, 1 t ab daily for 3 days, 1/2 tab daily for 2 days PREDNISONE 20 MG TAB 876061 PREDNISON E Inactive ZITHROMAX 250 MG TAB 2 po today, then 1 po q days 2-5 ZITHROMAX 250 MG TAB 8185635 AZITHROMYCIN Inactive ZITHROMAX 250 MG TAB 2 po today, then 1 po q days 2-5 ZITHROMAX 250 MG TAB 5830548 AZITHROMYCIN Inactive Immunizations Vaccine Administration Date Value [...] pressure, diastolic - 8462-4 62 mm[Hg] BP jnoes blood pressure, systolic - 8480-6 114 mm[Hg] [...] 142-424 Encounters Code Encounter Date Provider Facility CPT-07337 Level 3 Est. Patient 09:22:14 CDT Adrián dyson MD [facility] CPT-76009 Level 3 Est. Patient 08:59:31 CDT Adrián dyson MD [facility] CPT-34590 Level 3 Est. Patient 11:58:31 CDT Adrián dyson MD [facility] CPT-38919 Level 3 Est. Patient 09:06:35 CDT Adrián dyson MD [facility] CPT-25620 Level 3 Est. Patient 09:18:45 CDT Adrián dyson MD [facility] CPT-92472 Level 3 Est. Patient 09:13:22 CDT Adrián dyson MD [facility] CPT-98020 Level 3 Est. Patient 18:04:31 CONGREGATIONAL CARE PASTOR Adrián dyson MD [facility] CPT-42601 Level 4 Est. Patient 14:00:53 CDT Uriel bhatia [facility] CPT-79077 Level 3 Est. Patient 20:00:09 CDT Terry jenkins DO [facility] CPT-53774 Level 3 Est. Patient 08:45:08 CDT Uriel bhatia [facility] CPT-87832 Level 3 Est. Patient 09:09:26 CDT Uriel bhatia [facility] CPT-49703 Level 3 Est. Patient 16:32:31 CDT Adrián dyson MD [facility] CPT-26698 Level 3 Est. Patient 09:35:27 CONGREGATIONAL CARE PASTOR Norman fuentes [facility] CPT-12934 Level 2 Est. Patient 16:51:37 CONGREGATIONAL CARE PASTOR Adrián dyson MD [facility] CPT-88639 Level 3 Est. Patient 10:00:11 CONGREGATIONAL CARE PASTOR Ace Arriaza MD [facility] Procedures Code Procedure Name Date Entry Date Standard Desc ription CPT-69233 First Vx - Ix admin via ID I M or jet injects without counseling by physician 16:04:17 CONGREGATIONAL CARE PASTOR CPT-83212 Gardasil 9 Intramuscular Suspension 1 6:04:17 CONGREGATIONAL CARE PASTOR CPT-70457 Venipuncture Draw Fee 09:40:26 CDT CPT-39961 [place] Spot - LAB USE ONLY 09:40:26 CDT 11/30 CPT-41415 CBC with Diff - LAB USE ONLY 09:40:26 CDT 2 CPT-22062 Addl Vx - Ix admin via ID IM or jet injects without counseling by physician 09:40:21 CDT CPT-41294 Menactra Intramuscular Injectable 09:40:21 CDT CPT-60002 Addl Vx - Ix admin via ID IM or jet injects without counseling by physician 09:40:21 CDT CPT-63943 Gardasil 9 Intramuscular Suspension 0 9:40:21 CDT CPT-71628 First Vx - Ix admin via ID I M or jet injects without counseling by physician 09:40:21 CDT CPT-74839 Havrix Intramuscular Suspension 720 EL U /0.5ML 09:40:21 CDT CPT-J2930 Solu Medrol 125 mg (Methyl Prednisolone Sodium Succinate) 09:43:26 CDT CPT-55937 Abx/Therapy Injection 09:43:26 CDT CPT-J2930 Solu Medrol 125 mg (Methyl Prednisolone Sodium Succinate) 09:05:55 CDT CPT-41139 Abx/Therapy Injection 09:05:55 CDT CPT-95425 Venipuncture Draw Fee 14:01:33 CDT CPT-93046 EKG Trac and Interp 11:22:04 CDT CPT-05935 Venipuncture Draw Fee 10:53:35 CDT CPT-J2930 Solu Medrol 125 mg (Methyl Prednisolone Sodium Succinate) 09:29:26 CDT CPT-80902 Abx/Therapy Injection 09:29:26 CDT CPT-Cryo Cryotherapy 16:51:37 CONGREGATIONAL CARE PASTOR
--- OUTSIDE RECORDS SUMMARY | 2019-07-22 19:42 | XMS REPORT | Clinical Summary ---
[...] MD Acute pharyngitis Headache 784.0 Active Adrián Vargehse MD Headache Pharyngitis-Acute 462 Active Adrián Varghese [...] Then increase to 20mg daily. FLUOXETINE HCL 31073706789 No Longer Active Yulissa Gibbs APRN Active PROZAC 20 MG ORAL CAPSULE Take 1 tab daily FLUO XETINE HCL 25504516791 Active Shannan Gibbs APRN Active BUSPIRONE HCL 7.5 MG ORAL TABLET 1 pill twice daily, for anxiety 20 14/11/05 BUSPIRONE HCL 34575837028 Active Shannan Gbibs APRN Active CITALOPRAM HYDROBROMIDE 20 MG ORAL TABLET take 1 tab p o qday for depresion and anxiety. CITALOPRAM HYDROBROMIDE 64903957685 No L onger Active Shannan Gibbs APRN Active CYANOCOBALAMIN 1000 MCG/ML INJECTION SOLUTION 1 inject ion weekly for 1 month, than 1 a month for 2 months. recheck lab CYANOCO BALAMIN 92553592194 No Longer Active Shannan Gibbs APRN Active ULTRAM 50 MG ORAL TABLET 1 TAB PO Q 6 HRS PRN HEADACHE TRAMADOL HCL 43724547398 Active Adrián Varghese MD Active ULTRAM 50 MG ORAL TABLET take 1 tab po q 6 hrs prn headache pain TRAMADOL HCL 32970507133 No Longer Active Adrián Varghese MD Active CLINDAMYCIN PHOSPHATE 2 % VAGINAL CREAM apply cream to acne BID prn CLINDAMYCIN PHOSPHATE 21775111104 No Longer Active Adráin dyson MD Active MINOCYCLINE HCL 100 MG ORAL CAPSULE take one po BID 20 13/11/25 MINOCYCLINE HCL 99983749932 No Longer Active Adrián Varghese MD A ctive TRI-SPRINTEC 0.18/0.215/0.25 MG-35 MCG ORAL TABLET 1 po qd a s directed NORGESTIM-ETH ESTRAD TRIPHASIC 19473974684 Active Adrián Varghese MD Active ZITHROMAX 250 MG ORAL TABLET 2 po today, then 1 po q days 2-5 20 12/07/06 AZITHROMYCIN 00423742264 No Longer Active Adrián Varghese MD Active ZITHROMAX 250 MG ORAL TABLET 2 po today, then 1 po q days 2-5 20 11/06/16 AZITHROMYCIN 65172743372 No Longer Active Adrián Varghese MD Active PREDNISONE 20 MG ORAL TABLET 2 tabs daily for 3 days, 1 tab daily for 3 days, 1/2 tab daily for 2 days PREDNISONE 47977772295 No Longer Active Adrián Varghese MD Active ZANTAC 75 75 MG ORAL TABLET take 1 po BID RANIT IDINE HCL 94643050667 No Longer Active Uriel BOYD Active BENZACLIN 1-5 % EXTERNAL GEL apply to skin BID prn for acne 2012 CLINDAMYCIN PHOS-BENZOYL PEROX 67572003595 No Longer Active Uriel BOYD Active BENZACLIN 1-5 % EXTERNAL GEL apply to skin BID prn for acne 2012 BENZACLIN 1-5 % EXTERNAL GEL 339757 CLINDAMYCIN PHOS-BE NZOYL PEROX Inactive MINOCYCLINE HCL 100 MG ORAL CAPSULE take one po BID 13/11/25 MINOCYCLINE HCL 100 MG ORAL CAPSULE 382068 MINOCYCLINE HCL Inac tive CLINDAMYCIN PHOSPHATE 2 % VAGINAL CREAM apply cream to acne BID prn CLINDAMYCIN PHOSPHATE 2 % VAGINAL CREAM 825557 CLINDAMY ANGELIA PHOSPHATE Inactive ULTRAM 50 MG ORAL TABLET take 1 tab po q 6 hrs prn headache pain ULTRAM 50 MG ORAL TABLET 059277 TRAMADOL HCL Inactiv e CYANOCOBALAMIN 1000 MCG/ML INJECTION SOLUTION 1 inject ion weekly for 1 month, than 1 a month for 2 months. recheck lab CYANOCOBALAMIN 1000 MCG/ML INJECTION SOLUTION 475271 CYANOCOBALAMIN Inactive CITALOPRAM HYDROBROMIDE 20 MG ORAL TABLET take 1 tab p o qday for depresion and anxiety. CITALOPRAM HYDROBROMIDE 20 MG ORAL TABLET 434199 CITALOPRAM HYDROBROMIDE Inactive PROZAC 10 MG ORAL CAPSULE Take 1 tab daily for 1 week. Then increase to 20mg daily. PROZAC 10 MG ORAL CAPSULE 301454 FLUOXETINE HCL Inactive ZANTAC 75 75 MG ORAL TABLET take 1 po BID ZANTAC 75 75 MG ORAL TABLET 347923 RANITIDINE HCL Inactive PREDNISONE 20 MG ORAL TABLET 2 tabs daily for 3 days, 1 tab daily for 3 days, 1/2 tab daily for 2 days PREDNISONE 20 MG ORAL T ABLET 367944 PREDNISONE Inactive ZITHROMAX 250 MG ORAL TABLET 2 po today, then 1 po q days 2-5 20 11/06/16 ZITHROMAX 250 MG ORAL TABLET 030571 AZITHROMYCIN [place] ctive ZITHROMAX 250 MG ORAL TABLET 2 po today, then 1 po q days 2-5 20 12/07/06 ZITHROMAX 250 MG ORAL TABLET 214437 AZITHROMYCIN [place] ctive Immunizations Vaccine Administration Date [...] d blood pressure, diastolic 82 mm[Hg] BP jonse blood pressure, systolic 136 mm[Hg] BP sys [...] Value Unit Range Description Lab Report: Chlamydia/GC APTIMA/24677 - Lab chlamydia DNA probe NOT DETECTED NOT DETECTED Lab Report: Chlamydia/GC APTIMA/53042 - Microbiology Neisseria gonorrhoeae DNA probe NOT DETECTED NO T DETECTED Lab Report: Comp. Metabolic Panel - Chem istry sodium, serum 141 mmol/L 619-631 4680/11/22 carbon dioxide, venous blood 25.2 mmol/L 21.0-32 .0 potassium, serum 3.8 mmol/L 3.5-5.2 chloride, serum 104 mmol/L 98-107 blood glucose 95 mg/dL 65-110 urea nitrogen, blood 15 mg/dL 7-18 creatinine, serum 0.79 mg/dL 0.60-1.30 alanine aminotransferase (SGPT), serum 28 U/L 10-55 aspartate aminotransferase (SGOT), serum 17 U/L 15-45 calcium, serum 8.9 mg/dL 8.5-10.1 bilirubin, serum, total 0.30 mg/dL 0.20-1.00 sodium, serum 139 mmol/L 813-301 9794/09/06 carbon dioxide, venous blood 25.3 mmol/L 21.0-32 [...] 5.0-8.5 Encounters Code Encounter Date Provider Facility [facility]-[id number] Level 3 Est. Patient 10:07:39 [employer] Cale morris Formerly named [facility]41827 Level 3 Est. Patient 11:35:37 [employer]ACHINE [employer] Cale morris [facility]-45549 Level 4 Est. Patient 11:10:55 CDT Shannan Lazcano [facility]-73432 Level 4 Est. Patient 14:07:40 [facility]-11936 Level 4 Est. Patient 13:54:09 CDT Adrián dyson MD [facility]84672 Level 3 Est. Patient 09:22:14 CDT Adrián dyson MD [facility]32808 Level 3 Est. Patient 08:59:31 CDT Adrián dyson MD [facility]98226 Level 3 Est. Patient 11:58:31 CDT Adrián dyson MD [facility]-34348 Level 3 Est. Patient 09:06:35 CDT Adrián dyson MD [facility]-90231 Level 3 Est. Patient 09:18:45 CDT Adrián dyson MD [facility]-62096 Level 3 Est. Patient 09:13:22 CDT Adrián dyson MD [facility]-03457 Level 3 Est. Patient 18:04:31 [employer] Adrián dyson MD [facility]-19739 Level 4 Est. Patient 14:00:53 CDT Uriel bhatia [facility] CPT-68562 Level 3 Est. Patient 20:00:09 CDT Terry Elisha Sachin jenkins DO [facility] CPT-00478 Level 3 Est. Patient 08:45:08 CDT Uriel bhatia [facility] CPT-67374 Level 3 Est. Patient 09:09:26 CDT Uriel bhatia [facility] CPT-17796 Level 3 Est. Patient 16:32:31 CDT Adrián dyson MD [facility] CPT-41268 Level 3 Est. Patient 09:35:27 [employer]INE [employer] Norman fuentes [facility] CPT-79433 Level 2 Est. Patient 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 Adrián dyson MD [facility] CPT-34326 Level 3 Est. Patient 10:00:11 [employer] Ace Arriaza MD [facility] Procedures Code Procedure Name Date Entry Date Standard Desc ription CPT-46045 First Vx - Ix admin via ID I M or jet injects without counseling by physician 14:18:02 CDT CPT-30577 Gardasil 9 Intramuscular Suspension 1 4:18:02 CDT CPT-J3420 Vitamin B12 1000mcg (Cyanocobalamin) 16:30:23 CDT CPT-15008 Abx/Therapy Injection 16:30:23 CDT CPT-J3420 Vitamin B12 1000mcg (Cyanocobalamin) 16:09:42 CDT CPT-17307 Abx/Therapy Injection 16:09:42 CDT CPT-J3420 Vitamin B12 1000mcg (Cyanocobalamin) 15:22:47 CDT CPT-14256 Abx/Therapy Injection 15:22:47 CDT CPT-J3420 Vitamin B12 1000mcg (Cyanocobalamin) 17:00:35 CDT CPT-90403 Abx/Therapy Injection 17:00:35 CDT CPT-15159 First Vx - Ix admin via ID I M or jet injects without counseling by physician 16:04:17 [employer] CPT-11859 Gardasil 9 Intramuscular Suspension 1 6:04:17 [employer] CPT-75318 Venipuncture Draw Fee 09:40:26 CDT CPT-91616 [facility] - LAB USE ONLY 09:40:26 CDT 11/30 CPT-80762 CBC with Diff - LAB USE ONLY 09:40:26 CDT 2 CPT-23558 Addl Vx - Ix admin via ID IM or jet injects without counseling by physician 09:40:21 CDT CPT-29005 Menactra Intramuscular Injectable 09:40:21 CDT CPT-94177 Addl Vx - Ix admin via ID IM or jet injects without counseling by physician 09:40:21 CDT CPT-81741 Gardasil 9 Intramuscular Suspension 0 9:40:21 CDT CPT-32594 First Vx - Ix admin via ID I M or jet injects without counseling by physician 09:40:21 CDT CPT-71102 Havrix Intramuscular Suspension 720 EL U /0.5ML 09:40:21 CDT CPT-J2930 Solu Medrol 125 mg (Methyl Prednisolone Sodium Succinate) 09:43:26 CDT CPT-97286 Abx/Therapy Injection 09:43:26 CDT CPT-J2930 Solu Medrol 125 mg (Methyl Prednisolone Sodium Succinate) 09:05:55 CDT CPT-81783 Abx/Therapy Injection 09:05:55 CDT CPT-56505 Venipuncture Draw Fee 14:01:33 CDT CPT-85270 EKG Trac and Interp 11:22:04 CDT CPT-05341 Venipuncture Draw Fee 10:53:35 CDT CPT-J2930 Solu Medrol 125 mg (Methyl Prednisolone Sodium Succinate) 09:29:26 CDT CPT-74582 Abx/Therapy Injection 09:29:26 CDT CPT-Cryo Cryotherapy 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
--- OUTSIDE RECORDS SUMMARY | 2019-07-22 19:42 | XMS REPORT | Clinical Summary ---
Author Author Yovanny, Clarisa Christopher Organization [facility] Address Unknown Phone Unavailable Allergies, Adverse [...] Then increase to 20mg daily. FLUOXETINE HCL 61475341161 No Longer Active Yulissa Gibbs APRN Active PROZAC 20 MG ORAL CAPSULE Take 1 tab daily FLUO XETINE HCL 28385208365 Active Shannan Gibbs APRN Active BUSPIRONE HCL 7.5 MG ORAL TABLET 1 pill twice daily, for anxiety 20 14/11/05 BUSPIRONE HCL 11081412054 Active Shannan Gibbs APRN Active CITALOPRAM HYDROBROMIDE 20 MG ORAL TABLET take 1 tab p o qday for depresion and anxiety. CITALOPRAM HYDROBROMIDE 14534700066 No L onger Active Shannan Gibbs APRN Active CYANOCOBALAMIN 1000 MCG/ML INJECTION SOLUTION 1 inject ion weekly for 1 month, than 1 a month for 2 months. recheck lab CYANOCO BALAMIN 20283527779 No Longer Active Shannan Gibbs APRN Active ULTRAM 50 MG ORAL TABLET 1 TAB PO Q 6 HRS PRN HEADACHE TRAMADOL HCL 64893665578 Active Adrián Varghese MD Active ULTRAM 50 MG ORAL TABLET take 1 tab po q 6 hrs prn headache pain TRAMADOL HCL 23149324666 No Longer Active Adrián Varghese MD Active CLINDAMYCIN PHOSPHATE 2 % VAGINAL CREAM apply cream to acne BID prn CLINDAMYCIN PHOSPHATE 18241065388 No Longer Active Adrián dyson MD Active MINOCYCLINE HCL 100 MG ORAL CAPSULE take one po BID 20 13/11/25 MINOCYCLINE HCL 82588210466 No Longer Active Adrián Varghese MD A ctive TRI-SPRINTEC 0.18/0.215/0.25 MG-35 MCG ORAL TABLET 1 po qd a s directed NORGESTIM-ETH ESTRAD TRIPHASIC 76732427590 Active Shannan Gibbs APRN Active ZITHROMAX 250 MG ORAL TABLET 2 po today, then 1 po q days 2-5 20 12/07/06 AZITHROMYCIN 35938913888 No Longer Active Adrián Varghese MD Active ZITHROMAX 250 MG ORAL TABLET 2 po today, then 1 po q days 2-5 20 11/06/16 AZITHROMYCIN 15559430629 No Longer Active Adrián Varghese MD Active PREDNISONE 20 MG ORAL TABLET 2 tabs daily for 3 days, 1 tab daily for 3 days, 1/2 tab daily for 2 days PREDNISONE 11319669381 No Longer Active Adrián Varghese MD Active ZANTAC 75 75 MG ORAL TABLET take 1 po BID RANIT IDINE HCL 73427182100 No Longer Active Uriel BOYD Active BENZACLIN 1-5 % EXTERNAL GEL apply to skin BID prn for acne 2012 CLINDAMYCIN PHOS-BENZOYL PEROX 55274433868 No Longer Active Uriel BOYD Active BENZACLIN 1-5 % EXTERNAL GEL apply to skin BID prn for acne 2012 BENZACLIN 1-5 % EXTERNAL GEL 128222 CLINDAMYCIN PHOS-BE NZOYL PEROX Inactive MINOCYCLINE HCL 100 MG ORAL CAPSULE take one po BID 13/11/25 MINOCYCLINE HCL 100 MG ORAL CAPSULE 527564 MINOCYCLINE HCL Inac tive CLINDAMYCIN PHOSPHATE 2 % VAGINAL CREAM apply cream to acne BID prn CLINDAMYCIN PHOSPHATE 2 % VAGINAL CREAM 919507 CLINDAMY ANGELIA PHOSPHATE Inactive ULTRAM 50 MG ORAL TABLET take 1 tab po q 6 hrs prn headache pain ULTRAM 50 MG ORAL TABLET 761759 TRAMADOL HCL Inactiv e CYANOCOBALAMIN 1000 MCG/ML INJECTION SOLUTION 1 inject ion weekly for 1 month, than 1 a month for 2 months. recheck lab CYANOCOBALAMIN 1000 MCG/ML INJECTION SOLUTION 147861 CYANOCOBALAMIN Inactive CITALOPRAM HYDROBROMIDE 20 MG ORAL TABLET take 1 tab p o qday for depresion and anxiety. CITALOPRAM HYDROBROMIDE 20 MG ORAL TABLET 689158 CITALOPRAM HYDROBROMIDE Inactive PROZAC 10 MG ORAL CAPSULE Take 1 tab daily for 1 week. Then increase to 20mg daily. PROZAC 10 MG ORAL CAPSULE 748279 FLUOXETINE HCL Inactive ZANTAC 75 75 MG ORAL TABLET take 1 po BID ZANTAC 75 75 MG ORAL TABLET 803661 RANITIDINE HCL Inactive PREDNISONE 20 MG ORAL TABLET 2 tabs daily for 3 days, 1 tab daily for 3 days, 1/2 tab daily for 2 days PREDNISONE 20 MG ORAL T ABLET 598733 PREDNISONE Inactive ZITHROMAX 250 MG ORAL TABLET 2 po today, then 1 po q days 2-5 20 11/06/16 ZITHROMAX 250 MG ORAL TABLET 698004 AZITHROMYCIN [place] ctive ZITHROMAX 250 MG ORAL TABLET 2 po today, then 1 po q days 2-5 20 12/07/06 ZITHROMAX 250 MG ORAL TABLET 162791 AZITHROMYCIN [place] ctive Immunizations Vaccine Administration Date [...] Value Unit Range Description Lab Report: Chlamydia/GC APTIMA/93593 - Lab chlamydia DNA probe NOT DETECTED NOT DETECTED Lab Report: Chlamydia/GC APTIMA/07079 - Microbiology Neisseria gonorrhoeae DNA probe NOT DETECTED NO T DETECTED Lab Report: Comp. Metabolic Panel - Chem istry sodium, serum 139 mmol/L 926-645 7038/09/06 carbon dioxide, venous blood 25.3 mmol/L 21.0-32 [...] 5.0-8.5 Encounters Code Encounter Date Provider Facility CPT-59461 Level 3 Est. Patient 11:35:37 [facility] Cale morris [facility] CPT-15829 Level 4 Est. Patient 11:10:55 CDT Hubert [facility] CPT-78382 Level 4 Est. Patient 14:07:40 CDT Hubert [facility] CPT-33680 Level 4 Est. Patient 13:54:09 CDT Adrián dyson MD [facility] CPT-99155 Level 3 Est. Patient 09:22:14 CDT Adrián dyson MD [facility] CPT-63268 Level 3 Est. Patient 08:59:31 CDT Adrián dyson MD [facility] CPT-87240 Level 3 Est. Patient 11:58:31 CDT Adrián dyson MD [facility] CPT-62729 Level 3 Est. Patient 09:06:35 CDT Adrián dyson MD [facility]-73220 Level 3 Est. Patient 09:18:45 CDT Adrián dyson MD [facility]-03551 Level 3 Est. Patient 09:13:22 CDT Adrián dyson MD [facility] CPT-98880 Level 3 Est. Patient 18:04:31 [facility] Adrián dyson MD [facility] CPT-62476 Level 4 Est. Patient 14:00:53 CDT Uriel bhatia [facility]-46668 Level 3 Est. Patient 20:00:09 CDT Terry jenkins DO [facility] CPT-63565 Level 3 Est. Patient 08:45:[address] [facility] CPT-92702 Level 3 Est. Patient 09:09:26 CDT Uriel bhatia [facility] CPT-44232 Level 3 Est. Patient 16:32:31 CDT Adrián dyson MD [facility] CPT-26500 Level 3 Est. Patient 09:35:27 [facility] Norman fuentes [facility] CPT-46557 Level 2 Est. Patient 16:51:37 [facility] Adrián dyson MD [facility] CPT-44370 Level 3 Est. Patient 10:00:11 [facility] Ace Arriaza MD [facility] Procedures Code Procedure Name Date Entry Date Standard Desc ription CPT-52863 First Vx - Ix admin via ID I M or jet injects without counseling by physician 14:18:02 CDT CPT-15371 Gardasil 9 Intramuscular Suspension 1 4:18:02 CDT CPT-J3420 Vitamin B12 1000mcg (Cyanocobalamin) 16:30:23 CDT CPT-27068 Abx/Therapy Injection 16:30:23 CDT CPT-J3420 Vitamin B12 1000mcg (Cyanocobalamin) 16:09:42 CDT CPT-08560 Abx/Therapy Injection 16:09:42 CDT CPT-J3420 Vitamin B12 1000mcg (Cyanocobalamin) 15:22:47 CDT CPT-59705 Abx/Therapy Injection 15:22:47 CDT CPT-J3420 Vitamin B12 1000mcg (Cyanocobalamin) 17:00:35 CDT CPT-91020 Abx/Therapy Injection 17:00:35 CDT CPT-06544 First Vx - Ix admin via ID I M or jet injects without counseling by physician 16:04:17 [facility] CPT-67179 Gardasil 9 Intramuscular Suspension 1 6:04:17 [facility] CPT-10643 Venipuncture Draw Fee 09:40:26 CDT CPT-68568 [place] [facility] - LAB USE ONLY 09:40:26 CDT 11/30 CPT-53525 CBC with Diff - LAB USE ONLY 09:40:26 CDT 2 CPT-53691 Addl Vx - Ix admin via ID IM or jet injects without counseling by physician 09:40:21 CDT CPT-05499 Menactra Intramuscular Injectable 09:40:21 CDT CPT-63747 Addl Vx - Ix admin via ID IM or jet injects without counseling by physician 09:40:21 CDT CPT-60282 Gardasil 9 Intramuscular Suspension 0 9:40:21 CDT CPT-87829 First Vx - Ix admin via ID I M or jet injects without counseling by physician 09:40:21 CDT CPT-40406 Havrix Intramuscular Suspension 720 EL U /0.5ML 09:40:21 CDT CPT-J2930 Solu Medrol 125 mg (Methyl Prednisolone Sodium Succinate) 09:43:26 CDT CPT-84474 Abx/Therapy Injection 09:43:26 CDT CPT-J2930 Solu Medrol 125 mg (Methyl Prednisolone Sodium Succinate) 09:05:55 CDT CPT-30437 Abx/Therapy Injection 09:05:55 CDT CPT-59701 Venipuncture Draw Fee 14:01:33 CDT CPT-22390 EKG Trac and Interp 11:22:04 CDT CPT-29214 Venipuncture Draw Fee 10:53:35 CDT CPT-J2930 Solu Medrol 125 mg (Methyl Prednisolone Sodium Succinate) 09:29:26 CDT CPT-38004 Abx/Therapy Injection 09:29:26 CDT CPT-Cryo Cryotherapy 16:51:37 [facility]
--- OUTSIDE RECORDS SUMMARY | 2019-07-22 19:42 | XMS REPORT | Clinical Summary ---
Author Author Yovanny, Clarisa Christopher Organization [facility] Address Unknown Phone Unavailable Allergies, [...] increa se to 20mg daily. FLUOXETINE HCL 85769367384 No Longer Active Hubert AWRD Active PROZAC 20 MG CAP Take 1 tab daily FLUOXETINE HCL 65272503627 Active Shannan Gibbs APRN Active BUSPIRONE HCL 7.5 MG ORAL TABS 1 pill twice daily, for anxiety 2016 BUSPIRONE HCL 19623237272 Active Shannan Gibbs APRN Active CITALOPRAM HYDROBROMIDE 20 MG ORAL TABS take 1 tab po qday for depresion and anxiety. CITALOPRAM HYDROBROMIDE 49219661633 No L onger Active Shannan Gibbs APRN Active CYANOCOBALAMIN 1000 MCG/ML INJ SOLN 1 injection weekly for 1 month, than 1 a month for 2 months. recheck lab CYANOCOBALAMIN 65655673749 No Longer Active Shannan Gibbs APRN Active ULTRAM 50 MG TAB 1 TAB PO Q 6 HRS PRN HEADACHE TRAMADOL HCL 59244594672 Active Adrián Varghese MD Active ULTRAM 50 MG TAB take 1 tab po q 6 hrs prn headache pain TRAMADOL HCL 82107798022 No Longer Active Adrián Varghese MD Acti ve CLINDAMYCIN PHOSPHATE 2 % CREA apply cream to acne BID prn 06/14 CLINDAMYCIN PHOSPHATE 51070661814 No Longer Active Adrián Joseph Active MINOCYCLINE HCL 100 MG CAPS take one po BID MINOCYCLINE HCL 73892897773 No Longer Active Adrián Varghese MD Acti ve TRI-SPRINTEC 0.18/0.215/0.25 MG-35 MCG TABS 1 po qd as directed 201 07/04/00 NORGESTIM-ETH ESTRAD TRIPHASIC 94737216521 Active Shannan Gibbs APRN Active ZITHROMAX 250 MG TAB 2 po today, then 1 po q days 2-5 AZITHROMYCIN 68655802795 No Longer Active Adrián Varghese MD Acti ve ZITHROMAX 250 MG TAB 2 po today, then 1 po q days 2-5 AZITHROMYCIN 72439055189 No Longer Active Adrián Varghese MD Acti ve PREDNISONE 20 MG TAB 2 tabs daily for 3 days, 1 t ab daily for 3 days, 1/2 tab daily for 2 days PREDNISONE 37038438348 No Longer Active Adrián Varghese MD Active ZANTAC 75 75 MG TABS take 1 po BID RANITIDINE H CL 85508355904 No Longer Active Uriel BOYD Active BENZACLIN 1-5 % GEL apply to skin BID prn for acne 201 05/05/14 CLINDAMYCIN PHOS-BENZOYL PEROX 79605933726 No Longer Active Uriel BOYD Active BENZACLIN 1-5 % GEL apply to skin BID prn for acne 201 05/05/14 BENZACLIN 1-5 % GEL 140192 CLINDAMYCIN PHOS-BENZOYL PEROX Inactive MINOCYCLINE HCL 100 MG CAPS take one po BID MINOCYCLINE HCL 100 MG CAPS 423028 MINOCYCLINE HCL Inactive CLINDAMYCIN PHOSPHATE 2 % CREA apply cream to acne BID prn 06/14 CLINDAMYCIN PHOSPHATE 2 % CREA 602992 CLINDAMYCIN PHOSP HATE Inactive ULTRAM 50 MG TAB take 1 tab po q 6 hrs prn headache pain ULTRAM 50 MG TAB 827682 TRAMADOL HCL Inactive CYANOCOBALAMIN 1000 MCG/ML INJ SOLN 1 injection weekly for 1 month, than 1 a month for 2 months. recheck lab CYANOCOB ALAMIN 1000 MCG/ML INJ SOLN 416337 CYANOCOBALAMIN Inactive CITALOPRAM HYDROBROMIDE 20 MG ORAL TABS take 1 tab po qday for depresion and anxiety. CITALOPRAM HYDROBROMIDE 20 MG ORAL TABS 2 14770 CITALOPRAM HYDROBROMIDE Inactive PROZAC 10 MG CAP Take 1 tab daily for 1 week. Then increa se to 20mg daily. PROZAC 10 MG CAP 907691 FLUOXETINE HCL Inactive ZANTAC 75 75 MG TABS take 1 po BID ZANTAC 75 75 MG TABS 938024 RANITIDINE HCL Inactive PREDNISONE 20 MG TAB 2 tabs daily for 3 days, 1 t ab daily for 3 days, 1/2 tab daily for 2 days PREDNISONE 20 MG TAB 014132 PREDNISON E Inactive ZITHROMAX 250 MG TAB 2 po today, then 1 po q days 2-5 ZITHROMAX 250 MG TAB 170150 AZITHROMYCIN Inactive ZITHROMAX 250 MG TAB 2 po today, then 1 po q days 2-5 ZITHROMAX 250 MG TAB 789812 AZITHROMYCIN Inactive Immunizations Vaccine Administration Date Value [...] - Chem istry sodium, serum 139 mmol/L 528-522 0322/09/06 carbon dioxide, venous blood 25.3 mmol/L 21.0-32 [...] 5.0-8.5 Encounters Code Encounter Date Provider Facility [facility]-[id number] Level 3 Est. 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 Patient 11:10:55 CDT Hubert [facility]-09807 Level 4 Est. Patient 14:07:40 CDT Hubert [facility]-80292 Level 4 Est. Patient 13:54:09 CDT Adrián dyson MD [facility]-01048 Level 3 Est. Patient 09:22:14 CDT Adrián dyson MD [facility]23892 Level 3 Est. Patient 08:59:31 CDT Adrián dyson MD [facility]71407 Level 3 Est. Patient 11:58:31 CDT Adrián dyson MD [facility] CPT-06039 Level 3 Est. Patient 09:06:35 CDT Adrián dyson MD [facility] CPT-90296 Level 3 Est. Patient 09:18:45 CDT Adrián dyson MD [facility] CPT-50381 Level 3 Est. Patient 09:13:22 CDT Adrián dyson MD [facility] CPT-30514 Level 3 Est. 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 Patient 14:00:53 CDT Demie Ahl sriram [facility] CPT-47654 Level 3 Est. Patient 20:00:09 CDT Terry jenkins DO [facility] CPT-01206 Level 3 Est. Patient 08:45:08 CDT Uriel bhatia [facility] CPT-09430 Level 3 Est. Patient 09:09:26 CDT Uriel hintonist [facility] CPT-20799 Level 3 Est. Patient 16:32:31 CDT Adrián dyson MD [facility] CPT-58696 Level 3 Est. 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 Patient 10:00:11 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 Ace Arriaza MD [facility] Procedures Code Procedure Name Date Entry Date Standard Desc ription CPT-74076 First Vx - Ix admin via ID I M or jet injects without counseling by physician 14:18:02 CDT CPT-00452 Gardasil 9 Intramuscular Suspension 1 4:18:02 CDT CPT-J3420 Vitamin B12 1000mcg (Cyanocobalamin) 16:30:23 CDT CPT-14742 Abx/Therapy Injection 16:30:23 CDT CPT-J3420 Vitamin B12 1000mcg (Cyanocobalamin) 16:09:42 CDT CPT-34547 Abx/Therapy Injection 16:09:42 CDT CPT-J3420 Vitamin B12 1000mcg (Cyanocobalamin) 15:22:47 CDT CPT-64171 Abx/Therapy Injection 15:22:47 CDT CPT-J3420 Vitamin B12 1000mcg (Cyanocobalamin) 17:00:35 CDT CPT-81146 Abx/Therapy Injection 17:00:35 CDT CPT-05413 First Vx - Ix admin via ID I M or jet injects without counseling by physician 16:04:17 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 CPT-93204 Gardasil 9 Intramuscular Suspension 1 6:04:17 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 CPT-52502 Venipuncture Draw Fee 09:40:26 CDT CPT-18890 [place] - LAB USE ONLY 09:40:26 CDT 11/30 CPT-99096 CBC with Diff - LAB USE ONLY 09:40:26 CDT 2 CPT-53584 Addl Vx - Ix admin via ID IM or jet injects without counseling by physician 09:40:21 CDT CPT-26015 Menactra Intramuscular Injectable 09:40:21 CDT CPT-36880 Addl Vx - Ix admin via ID IM or jet injects without counseling by physician 09:40:21 CDT CPT-49736 Gardasil 9 Intramuscular Suspension 0 9:40:21 CDT CPT-84169 First Vx - Ix admin via ID I M or jet injects without counseling by physician 09:40:21 CDT CPT-23053 Havrix Intramuscular Suspension 720 EL U /0.5ML 09:40:21 CDT CPT-J2930 Solu Medrol 125 mg (Methyl Prednisolone Sodium Succinate) 09:43:26 CDT CPT-51639 Abx/Therapy Injection 09:43:26 CDT CPT-J2930 Solu Medrol 125 mg (Methyl Prednisolone Sodium Succinate) 09:05:55 CDT CPT-40368 Abx/Therapy Injection 09:05:55 CDT CPT-14293 Venipuncture Draw Fee 14:01:33 CDT CPT-16526 EKG Trac and Interp 11:22:04 CDT CPT-42240 Venipuncture Draw Fee 10:53:35 CDT CPT-J2930 Solu Medrol 125 mg (Methyl Prednisolone Sodium Succinate) 09:29:26 CDT CPT-77933 Abx/Therapy Injection 09:29:26 CDT CPT-Cryo Cryotherapy 16:51:37 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
--- OUTSIDE RECORDS SUMMARY | 2019-07-22 19:42 | XMS REPORT | Clinical Summary ---
Author Author Yovanny, Clarisa Christopher Organization [facility] Address Unknown Phone Unavailable Allergies, [...] Q 6 HRS PRN HEADACHE TRAMADOL HCL 14402482460 Active Adrián Varghese MD Active CYANOCOBALAMIN 1000 MCG/ML INJ SOLN 1 injection weekly for 1 month, than 1 a month for 2 months. recheck lab CYANOCOBALAMIN 97188751684 Active Samreen Cristo Active CITALOPRAM HYDROBROMIDE 20 MG ORAL TABS take 1 tab po qday for depresion and anxiety. CITALOPRAM HYDROBROMIDE 39428261247 Active Adrián Varghese MD Active ULTRAM 50 MG TAB take 1 tab po q 6 hrs prn headache pain TRAMADOL HCL 35060211129 No Longer Active Adrián Varghese MD Acti ve CLINDAMYCIN PHOSPHATE 2 % CREA apply cream to acne BID prn 06/14 CLINDAMYCIN PHOSPHATE 51610146209 No Longer Active Adrián Joseph Active MINOCYCLINE HCL 100 MG CAPS take one po BID MINOCYCLINE HCL 49531007883 No Longer Active Adrián Varghese MD Acti ve TRI-SPRINTEC 0.18/0.215/0.25 MG-35 MCG TABS 1 po qd as directed 201 07/04/00 NORGESTIM-ETH ESTRAD TRIPHASIC 52711437128 Active Adrián Varghese MD Active ZITHROMAX 250 MG TAB 2 po today, then 1 po q days 2-5 AZITHROMYCIN 02507349379 No Longer Active Adrián Varghese MD Acti ve ZITHROMAX 250 MG TAB 2 po today, then 1 po q days 2-5 AZITHROMYCIN 17290655196 No Longer Active Adrián Varghese MD Acti ve PREDNISONE 20 MG TAB 2 tabs daily for 3 days, 1 t ab daily for 3 days, 1/2 tab daily for 2 days PREDNISONE 10732239615 No Longer Active Adrián Varghese MD Active ZANTAC 75 75 MG TABS take 1 po BID RANITIDINE H CL 16937043402 No Longer Active Uriel BOYD Active BENZACLIN 1-5 % GEL apply to skin BID prn for acne 201 05/05/14 CLINDAMYCIN PHOS-BENZOYL PEROX 54115479584 No Longer Active Uriel BOYD Active BENZACLIN 1-5 % GEL apply to skin BID prn for acne 201 05/05/14 BENZACLIN 1-5 % GEL 456474 CLINDAMYCIN PHOS-BENZOYL PEROX Inactive MINOCYCLINE HCL 100 MG CAPS take one po BID MINOCYCLINE HCL 100 MG CAPS 799730 MINOCYCLINE HCL Inactive CLINDAMYCIN PHOSPHATE 2 % CREA apply cream to acne BID prn 06/14 CLINDAMYCIN PHOSPHATE 2 % CREA 572347 CLINDAMYCIN PHOSP HATE Inactive ULTRAM 50 MG TAB take 1 tab po q 6 hrs prn headache pain ULTRAM 50 MG TAB 463775 TRAMADOL HCL Inactive ZANTAC 75 75 MG TABS take 1 po BID ZANTAC 75 75 MG TABS 411676 RANITIDINE HCL Inactive PREDNISONE 20 MG TAB 2 tabs daily for 3 days, 1 t ab daily for 3 days, 1/2 tab daily for 2 days PREDNISONE 20 MG TAB 374340 PREDNISON E Inactive ZITHROMAX 250 MG TAB 2 po today, then 1 po q days 2-5 ZITHROMAX 250 MG TAB 6807616 AZITHROMYCIN Inactive ZITHROMAX 250 MG TAB 2 po today, then 1 po q days 2-5 ZITHROMAX 250 MG TAB 9067596 AZITHROMYCIN Inactive Immunizations Vaccine Administration Date Value [...] 11 .6-14.8 platelet count 351 10^3/MM^3 10*3/mm3 809-611 8006/10/03 erythrocyte (RBC) count 4.58 10^6/MM^3 10*6/mm3 4.04-5.4 8 lymphocytes as percent of blood leukocytes 34.8 % 20.5-51.1 monocytes as percent of blood leukocytes 5.9 % 1.7-9.3 neutrophils as percent of blood leukocytes 57.2 % 42.2-75.2 leukocyte count, blood 5.9 10^3/MM^3 10*3/mm3 4.6-10.2 Encounters Code Encounter Date Provider Facility CPT-87158 Level 4 Est. Patient 13:54:09 CDT Adrián dyson MD [facility]-83288 Level 3 Est. Patient 09:22:14 CDT Adrián dyson MD [facility]-45839 Level 3 Est. Patient 08:59:31 CDT Adrián dyson MD [facility]-32317 Level 3 Est. Patient 11:58:31 CDT Adrián dyson MD [facility] CPT-33037 Level 3 Est. Patient 09:06:35 CDT Adrián dyson MD [facility] CPT-88209 Level 3 Est. Patient 09:18:45 CDT Adrián dyson MD [facility]35261 Level 3 Est. Patient 09:13:22 CDT Adrián dyson MD [facility] CPT-55955 Level 3 Est. 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 Patient 14:00:53 CDT Uriel bhatia [facility] CPT-66771 Level 3 Est. Patient 20:00:09 CDT Terry jenkins DO [facility]-87220 Level 3 Est. Patient 08:45:08 CDT Uriel bhatia [facility] CPT-46023 Level 3 Est. Patient 09:09:26 CDT Uriel bhatia [facility]-40512 Level 3 Est. Patient 16:32:31 CDT Adrián dyson MD [facility]-63574 Level 3 Est. Patient 09:35:27 TRAVELING MISSIONARY Norman BOYD [facility] CPT-57250 Level 2 Est. Patient 16:51:37 TRAVELING MISSIONARY Adrián dyson MD [facility] CPT-23073 Level 3 Est. Patient 10:00:11 TRAVELING MISSIONARY Ace Arriaza MD [facility] Procedures Code Procedure Name Date Entry Date Standard Desc ription CPT-J3420 Vitamin B12 1000mcg (Cyanocobalamin) 16:30:23 CDT CPT-19336 Abx/Therapy Injection 16:30:23 CDT CPT-J3420 Vitamin B12 1000mcg (Cyanocobalamin) 16:09:42 CDT CPT-59259 Abx/Therapy Injection 16:09:42 CDT CPT-J3420 Vitamin B12 1000mcg (Cyanocobalamin) 15:22:47 CDT CPT-57413 Abx/Therapy Injection 15:22:47 CDT CPT-J3420 Vitamin B12 1000mcg (Cyanocobalamin) 17:00:35 CDT CPT-44302 Abx/Therapy Injection 17:00:35 CDT CPT-03681 First Vx - Ix admin via ID I M or jet injects without counseling by physician 16:04:17 TRAVELING MISSIONARY CPT-96717 Gardasil 9 Intramuscular Suspension 1 6:04:17 TRAVELING MISSIONARY CPT-04675 Venipuncture Draw Fee 09:40:26 CDT CPT-81984 [facility] Spot - LAB USE ONLY 09:40:26 CDT 11/30 CPT-16838 CBC with Diff - LAB USE ONLY 09:40:26 CDT 2 CPT-77476 Addl Vx - Ix admin via ID IM or jet injects without counseling by physician 09:40:21 CDT CPT-20341 Menactra Intramuscular Injectable 09:40:21 CDT CPT-05296 Addl Vx - Ix admin via ID IM or jet injects without counseling by physician 09:40:21 CDT CPT-79514 Gardasil 9 Intramuscular Suspension 0 9:40:21 CDT CPT-93571 First Vx - Ix admin via ID I M or jet injects without counseling by physician 09:40:21 CDT CPT-36781 Havrix Intramuscular Suspension 720 EL U /0.5ML 09:40:21 CDT CPT-J2930 Solu Medrol 125 mg (Methyl Prednisolone Sodium Succinate) 09:43:26 CDT CPT-19902 Abx/Therapy Injection 09:43:26 CDT CPT-J2930 Solu Medrol 125 mg (Methyl Prednisolone Sodium Succinate) 09:05:55 CDT CPT-21824 Abx/Therapy Injection 09:05:55 CDT CPT-14891 Venipuncture Draw Fee 14:01:33 CDT CPT-73156 EKG Trac and Interp 11:22:04 CDT CPT-00322 Venipuncture Draw Fee 10:53:35 CDT CPT-J2930 Solu Medrol 125 mg (Methyl Prednisolone Sodium Succinate) 09:29:26 CDT CPT-92426 Abx/Therapy Injection 09:29:26 CDT CPT-Cryo Cryotherapy 16:51:37 TRAVELING MISSIONARY
--- OUTSIDE RECORDS SUMMARY | 2019-07-22 19:43 | XMS REPORT | Clinical Summary ---
[...] to acne BID prn 06/14 CLINDAMYCIN PHOSPHATE 91621755638 No Longer Active Adrián Joseph Active MINOCYCLINE HCL 100 MG CAPS take one po BID MINOCYCLINE HCL 39612010547 No Longer Active Adrián Varghese MD Acti ve TRI-SPRINTEC 0.18/0.215/0.25 MG-35 MCG TABS 1 po qd as directed 201 07/04/00 NORGESTIM-ETH ESTRAD TRIPHASIC 52376005112 Active Adrián Varghese MD Active ZITHROMAX 250 MG TAB 2 po today, then 1 po q days 2-5 AZITHROMYCIN 08258087186 No Longer Active Adrián Varghese MD Acti ve ULTRAM 50 MG TAB take 1 tab po q 6 hrs prn headache pain TRAMADOL HCL 59094340506 Active Adrián Varghese MD Active ZITHROMAX 250 MG TAB 2 po today, then 1 po q days 2-5 AZITHROMYCIN 60012693976 No Longer Active Adrián Varghese MD Acti ve PREDNISONE 20 MG TAB 2 tabs daily for 3 days, 1 t ab daily for 3 days, 1/2 tab daily for 2 days PREDNISONE 30481196036 No Longer Active Adrián Varghese MD Active ZANTAC 75 75 MG TABS take 1 po BID RANITIDINE H CL 62999911573 No Longer Active Uriel BOYD Active BENZACLIN 1-5 % GEL apply to skin BID prn for acne 201 05/05/14 CLINDAMYCIN PHOS-BENZOYL PEROX 12748968526 No Longer Active Uriel BOYD Active BENZACLIN 1-5 % GEL apply to skin BID prn for acne 201 05/05/14 BENZACLIN 1-5 % GEL 890245 CLINDAMYCIN PHOS-BENZOYL PEROX Inactive MINOCYCLINE HCL 100 MG CAPS take one po BID MINOCYCLINE HCL 100 MG CAPS 652724 MINOCYCLINE HCL Inactive CLINDAMYCIN PHOSPHATE 2 % CREA apply cream to acne BID prn 06/14 CLINDAMYCIN PHOSPHATE 2 % CREA 997149 CLINDAMYCIN PHOSP HATE Inactive ZANTAC 75 75 MG TABS take 1 po BID ZANTAC 75 75 MG TABS 835987 RANITIDINE HCL Inactive PREDNISONE 20 MG TAB 2 tabs daily for 3 days, 1 t ab daily for 3 days, 1/2 tab daily for 2 days PREDNISONE 20 MG TAB 282581 PREDNISON E Inactive ZITHROMAX 250 MG TAB 2 po today, then 1 po q days 2-5 ZITHROMAX 250 MG TAB 4027021 AZITHROMYCIN Inactive ZITHROMAX 250 MG TAB 2 po today, then 1 po q days 2-5 ZITHROMAX 250 MG TAB 8272145 AZITHROMYCIN Inactive Immunizations Vaccine Administration Date Value [...] 142-424 Encounters Code Encounter Date Provider Facility CPT-41166 Level 3 Est. Patient 09:22:14 CDT Adrián dyson MD [facility] CPT-01363 Level 3 Est. Patient 08:59:31 CDT Adrián dyson MD [facility] CPT-57685 Level 3 Est. Patient 11:58:31 CDT Adrián dyson MD [facility] CPT-77705 Level 3 Est. Patient 09:06:35 CDT Adrián dyson MD [facility] CPT-08907 Level 3 Est. Patient 09:18:45 CDT Adrián dyson MD [facility] CPT-25253 Level 3 Est. Patient 09:13:22 CDT Adrián dyson MD [facility] CPT-83413 Level 3 Est. Patient 18:04:31 CABLEWAY OPERATOR Adrián dyson MD [facility] CPT-59020 Level 4 Est. Patient 14:00:53 CDT Uriel bhatia [facility] CPT-51607 Level 3 Est. Patient 20:00:09 CDT Terry jenkins DO [facility] CPT-35458 Level 3 Est. Patient 08:45:08 CDT Uriel bhatia [facility] CPT-97479 Level 3 Est. Patient 09:09:26 CDT Uriel bhatia [facility] CPT-14682 Level 3 Est. Patient 16:32:31 CDT Adrián dyson MD [facility] CPT-33261 Level 3 Est. Patient 09:35:27 CABLEWAY OPERATOR Norman fuentes [facility] CPT-08977 Level 2 Est. Patient 16:51:37 CABLEWAY OPERATOR Adrián dyson MD [facility] CPT-98492 Level 3 Est. Patient 10:00:11 CABLEWAY OPERATOR Ace Arriaza MD [facility] Procedures Code Procedure Name Date Entry Date Standard Desc ription CPT-52176 Venipuncture Draw Fee 09:40:26 CDT CPT-88101 [place] Spot - LAB USE ONLY 09:40:26 CDT 11/30 CPT-08134 CBC with Diff - LAB USE ONLY 09:40:26 CDT 2 CPT-15051 Addl Vx - Ix admin via ID IM or jet injects without counseling by physician 09:40:21 CDT CPT-31145 Menactra Intramuscular Injectable 09:40:21 CDT CPT-08563 Addl Vx - Ix admin via ID IM or jet injects without counseling by physician 09:40:21 CDT CPT-12391 Gardasil 9 Intramuscular Suspension 0 9:40:21 CDT CPT-25048 First Vx - Ix admin via ID I M or jet injects without counseling by physician 09:40:21 CDT CPT-39826 Havrix Intramuscular Suspension 720 EL U /0.5ML 09:40:21 CDT CPT-J2930 Solu Medrol 125 mg (Methyl Prednisolone Sodium Succinate) 09:43:26 CDT CPT-04304 Abx/Therapy Injection 09:43:26 CDT CPT-J2930 Solu Medrol 125 mg (Methyl Prednisolone Sodium Succinate) 09:05:55 CDT CPT-52215 Abx/Therapy Injection 09:05:55 CDT CPT-04572 Venipuncture Draw Fee 14:01:33 CDT CPT-08539 EKG Trac and Interp 11:22:04 CDT CPT-22597 Venipuncture Draw Fee 10:53:35 CDT CPT-J2930 Solu Medrol 125 mg (Methyl Prednisolone Sodium Succinate) 09:29:26 CDT CPT-78084 Abx/Therapy Injection 09:29:26 CDT CPT-Cryo Cryotherapy 16:51:37 CABLEWAY OPERATOR
--- OUTSIDE RECORDS SUMMARY | 2019-07-22 19:43 | XMS REPORT | Clinical Summary ---
Author Author Yovanny, Clarisa Christopher Organization [facility] Address Unknown Phone Unavailable Allergies, Adverse [...] as directed 201 07/04/00 NORGESTIM-ETH ESTRAD TRIPHASIC 74656061206 Active Samreen Lemons Active ZITHROMAX 250 MG TAB 2 po today, then 1 po q days 2-5 AZITHROMYCIN 47180268066 No Longer Active Adrián Varghese MD Acti ve ULTRAM 50 MG TAB take 1 tab po q 6 hrs prn headache pain TRAMADOL HCL 01135063842 Active Adrián Varghese MD Active ZITHROMAX 250 MG TAB 2 po today, then 1 po q days 2-5 AZITHROMYCIN 18338877967 No Longer Active Adrián Varghese MD Acti ve CLINDAMYCIN PHOSPHATE 2 % CREA apply cream to acne BID prn CLINDAMYCIN PHOSPHATE 15719774302 Active Adrián Varghese MD Active PREDNISONE 20 MG TAB 2 tabs daily for 3 days, 1 t ab daily for 3 days, 1/2 tab daily for 2 days PREDNISONE 24837431969 No Longer Active Adrián Varghese MD Active ZANTAC 75 75 MG TABS take 1 po BID RANITIDINE H CL 62833033539 No Longer Active Uriel BOYD Active MINOCYCLINE HCL 100 MG CAPS take one po BID MIN OCYCLINE HCL 77750699207 Active Adrián Varghese MD Active BENZACLIN 1-5 % GEL apply to skin BID prn for acne 201 05/05/14 CLINDAMYCIN PHOS-BENZOYL PEROX 93752447530 No Longer Active Uriel BOYD Active BENZACLIN 1-5 % GEL apply to skin BID prn for acne 201 05/05/14 BENZACLIN 1-5 % GEL 644731 CLINDAMYCIN PHOS-BENZOYL PEROX Inactive ZANTAC 75 75 MG TABS take 1 po BID ZANTAC 75 75 MG TABS 292670 RANITIDINE HCL Inactive PREDNISONE 20 MG TAB 2 tabs daily for 3 days, 1 t ab daily for 3 days, 1/2 tab daily for 2 days PREDNISONE 20 MG TAB 402714 PREDNISON E Inactive ZITHROMAX 250 MG TAB 2 po today, then 1 po q days 2-5 ZITHROMAX 250 MG TAB 9413017 AZITHROMYCIN Inactive ZITHROMAX 250 MG TAB 2 po today, then 1 po q days 2-5 ZITHROMAX 250 MG TAB 5438282 AZITHROMYCIN Inactive Immunizations Vaccine Administration Date Value [...] Measured Encounters Code Encounter Date Provider Facility CPT-26841 Level 3 Est. Patient 11:58:31 CDT Adrián dyson MD [facility] CPT-41100 Level 3 Est. Patient 09:06:35 CDT Adrián dyson MD [facility] CPT-16422 Level 3 Est. Patient 09:18:45 CDT Adrián dyson MD [facility] CPT-81195 Level 3 Est. Patient 09:13:22 CDT Adrián dyson MD [facility] CPT-93789 Level 3 Est. Patient 18:04:31 LOT ASSOCIATE Adrián dyson MD [facility] CPT-21110 Level 4 Est. Patient 14:00:53 CDT Uriel bhatia [facility] CPT-94921 Level 3 Est. Patient 20:00:09 CDT Terry jenkins DO [facility] CPT-70242 Level 3 Est. Patient 08:45:08 CDT Uriel bhatia [facility] CPT-90065 Level 3 Est. Patient 09:09:26 CDT Uriel bhatia [facility] CPT-32904 Level 3 Est. Patient 16:32:31 CDT Adrián dyson MD [facility] CPT-62674 Level 3 Est. Patient 09:35:27 LOT ASSOCIATE Norman BOYD [facility] CPT-44673 Level 2 Est. Patient 16:51:37 LOT ASSOCIATE Adrián dyson MD [facility] CPT-07324 Level 3 Est. Patient 10:00:11 LOT ASSOCIATE Ace Arriaza MD [facility] Procedures Code Procedure Name Date Entry Date Standard Desc ription CPT-J2930 Solu Medrol 125 mg (Methyl Prednisolone Sodium Succinate) 09:43:26 CDT CPT-47761 Abx/Therapy Injection 09:43:26 CDT CPT-J2930 Solu Medrol 125 mg (Methyl Prednisolone Sodium Succinate) 09:05:55 CDT CPT-16227 Abx/Therapy Injection 09:05:55 CDT CPT-38333 Venipuncture Draw Fee 14:01:33 CDT CPT-96620 EKG Trac and Interp 11:22:04 CDT CPT-11792 Venipuncture Draw Fee 10:53:35 CDT CPT-J2930 Solu Medrol 125 mg (Methyl Prednisolone Sodium Succinate) 09:29:26 CDT CPT-61679 Abx/Therapy Injection 09:29:26 CDT CPT-Cryo Cryotherapy 16:51:37 LOT ASSOCIATE
--- OUTSIDE RECORDS SUMMARY | 2019-07-22 19:43 | XMS REPORT | Clinical Summary ---
Author Author Yovanny, Clarisa Christopher Organization [facility] Address Unknown Phone Unavailable Allergies, Adverse Reactions, [...] increa se to 20mg daily. FLUOXETINE HCL 66087459727 No Longer Active Hubert WARD Active PROZAC 20 MG CAP Take 1 tab daily FLUOXETINE HCL 97600816326 Active Shannan Gibbs APRN Active BUSPIRONE HCL 7.5 MG ORAL TABS 1 pill twice daily, for anxiety 2016 BUSPIRONE HCL 34816125617 Active Shannan Gibbs APRN Active CITALOPRAM HYDROBROMIDE 20 MG ORAL TABS take 1 tab po qday for depresion and anxiety. CITALOPRAM HYDROBROMIDE 35739803932 No L onger Active Shannan Gibbs APRN Active CYANOCOBALAMIN 1000 MCG/ML INJ SOLN 1 injection weekly for 1 month, than 1 a month for 2 months. recheck lab CYANOCOBALAMIN 68466536458 No Longer Active Shannan Gibbs APRN Active ULTRAM 50 MG TAB 1 TAB PO Q 6 HRS PRN HEADACHE TRAMADOL HCL 47278551532 Active Adrián Varghese MD Active ULTRAM 50 MG TAB take 1 tab po q 6 hrs prn headache pain TRAMADOL HCL 28115270086 No Longer Active Adrián Varghese MD Acti ve CLINDAMYCIN PHOSPHATE 2 % CREA apply cream to acne BID prn 06/14 CLINDAMYCIN PHOSPHATE 45218262067 No Longer Active Adrián Joseph Active MINOCYCLINE HCL 100 MG CAPS take one po BID MINOCYCLINE HCL 90512131358 No Longer Active Adrián Varghese MD Acti ve TRI-SPRINTEC 0.18/0.215/0.25 MG-35 MCG TABS 1 po qd as directed 201 07/04/00 NORGESTIM-ETH ESTRAD TRIPHASIC 31246196344 Active Shannan Gibbs APRN Active ZITHROMAX 250 MG TAB 2 po today, then 1 po q days 2-5 AZITHROMYCIN 96682557500 No Longer Active Adrián Varghese MD Acti ve ZITHROMAX 250 MG TAB 2 po today, then 1 po q days 2-5 AZITHROMYCIN 53674335710 No Longer Active Adrián Varghese MD Acti ve PREDNISONE 20 MG TAB 2 tabs daily for 3 days, 1 t ab daily for 3 days, 1/2 tab daily for 2 days PREDNISONE 96764097819 No Longer Active Adrián Varghese MD Active ZANTAC 75 75 MG TABS take 1 po BID RANITIDINE H CL 52010882791 No Longer Active Uriel BOYD Active BENZACLIN 1-5 % GEL apply to skin BID prn for acne 201 05/05/14 CLINDAMYCIN PHOS-BENZOYL PEROX 79646570078 No Longer Active Uriel BOYD Active BENZACLIN 1-5 % GEL apply to skin BID prn for acne 201 05/05/14 BENZACLIN 1-5 % GEL 056326 CLINDAMYCIN PHOS-BENZOYL PEROX Inactive MINOCYCLINE HCL 100 MG CAPS take one po BID MINOCYCLINE HCL 100 MG CAPS 932796 MINOCYCLINE HCL Inactive CLINDAMYCIN PHOSPHATE 2 % CREA apply cream to acne BID prn 06/14 CLINDAMYCIN PHOSPHATE 2 % CREA 595524 CLINDAMYCIN PHOSP HATE Inactive ULTRAM 50 MG TAB take 1 tab po q 6 hrs prn headache pain ULTRAM 50 MG TAB 300874 TRAMADOL HCL Inactive CYANOCOBALAMIN 1000 MCG/ML INJ SOLN 1 injection weekly for 1 month, than 1 a month for 2 months. recheck lab CYANOCOB ALAMIN 1000 MCG/ML INJ SOLN 560498 CYANOCOBALAMIN Inactive CITALOPRAM HYDROBROMIDE 20 MG ORAL TABS take 1 tab po qday for depresion and anxiety. CITALOPRAM HYDROBROMIDE 20 MG ORAL TABS 2 44533 CITALOPRAM HYDROBROMIDE Inactive PROZAC 10 MG CAP Take 1 tab daily for 1 week. Then increa se to 20mg daily. PROZAC 10 MG CAP 585022 FLUOXETINE HCL Inactive ZANTAC 75 75 MG TABS take 1 po BID ZANTAC 75 75 MG TABS 046196 RANITIDINE HCL Inactive PREDNISONE 20 MG TAB 2 tabs daily for 3 days, 1 t ab daily for 3 days, 1/2 tab daily for 2 days PREDNISONE 20 MG TAB 310179 PREDNISON E Inactive ZITHROMAX 250 MG TAB 2 po today, then 1 po q days 2-5 ZITHROMAX 250 MG TAB 805882 AZITHROMYCIN Inactive ZITHROMAX 250 MG TAB 2 po today, then 1 po q days 2-5 ZITHROMAX 250 MG TAB 290635 AZITHROMYCIN Inactive Immunizations Vaccine Administration Date Value [...] Value Unit Range Description Lab Report: Chlamydia/GC APTIMA/15780 - Lab chlamydia DNA probe NOT DETECTED NOT DETECTED Lab Report: Chlamydia/GC [facility]TIMA/33750 - Microbiology Neisseria gonorrhoeae DNA probe NOT DETECTED NO T DETECTED Lab Report: Comp. Metabolic Panel - Chem istry sodium, serum 139 mmol/L 752-824 6201/09/06 carbon dioxide, venous blood 25.3 mmol/L 21.0-32 [...] 5.0-8.5 Encounters Code Encounter Date Provider Facility CPT-48871 Level 3 Est. Patient 11:35:37 TRAY SERVER Cale morris [facility]-08865 Level 4 Est. Patient 11:10:55 CDT Hubert [facility]-46652 Level 4 Est. Patient 14:07:40 CDT Hubert [facility]-02164 Level 4 Est. Patient 13:54:09 CDT Adrián dyson MD [facility]-23236 Level 3 Est. Patient 09:22:14 CDT Adrián dyson MD [facility]-88061 Level 3 Est. Patient 08:59:31 CDT Adrián dyson MD [facility]-12749 Level 3 Est. Patient 11:58:31 CDT Adrián dyson MD [facility] CPT-50668 Level 3 Est. Patient 09:06:35 CDT Adrián dyson MD [facility] CPT-25873 Level 3 Est. Patient 09:18:45 CDT Adrián dyson MD [facility] CPT-75343 Level 3 Est. Patient 09:13:22 CDT Adrián dyson MD [facility] CPT-84931 Level 3 Est. Patient 18:04:31 TRAY SERVER Adrián dyson MD [facility] CPT-75034 Level 4 Est. Patient 14:00:53 CDT Uriel bhatia [facility] CPT-24001 Level 3 Est. Patient 20:00:09 CDT Terry jenkins DO [facility] CPT-47514 Level 3 Est. Patient 08:45:08 CDT Uriel bhatia [facility] CPT-17444 Level 3 Est. Patient 09:09:26 CDT Uriel bhatia [facility] CPT-65535 Level 3 Est. Patient 16:32:31 CDT Adrián dyson MD [facility] CPT-60550 Level 3 Est. Patient 09:35:27 TRAY SERVER Norman fuentes [facility] CPT-78036 Level 2 Est. Patient 16:51:37 TRAY SERVER Adrián dyson MD [facility] CPT-71463 Level 3 Est. Patient 10:00:11 TRAY SERVER Ace Arriaza MD [facility] Procedures Code Procedure Name Date Entry Date Standard Desc ription CPT-10452 First Vx - Ix admin via ID I M or jet injects without counseling by physician 14:18:02 CDT CPT-40571 Gardasil 9 Intramuscular Suspension 1 4:18:02 CDT CPT-J3420 Vitamin B12 1000mcg (Cyanocobalamin) 16:30:23 CDT CPT-70797 Abx/Therapy Injection 16:30:23 CDT CPT-J3420 Vitamin B12 1000mcg (Cyanocobalamin) 16:09:42 CDT CPT-89642 Abx/Therapy Injection 16:09:42 CDT CPT-J3420 Vitamin B12 1000mcg (Cyanocobalamin) 15:22:47 CDT CPT-35600 Abx/Therapy Injection 15:22:47 CDT CPT-J3420 Vitamin B12 1000mcg (Cyanocobalamin) 17:00:35 CDT CPT-88103 Abx/Therapy Injection 17:00:35 CDT CPT-10961 First Vx - Ix admin via ID I M or jet injects without counseling by physician 16:04:17 TRAY SERVER CPT-53209 Gardasil 9 Intramuscular Suspension 1 6:04:17 TRAY SERVER CPT-43995 Venipuncture Draw Fee 09:40:26 CDT CPT-16954 [place] [facility] - LAB USE ONLY 09:40:26 CDT 11/30 CPT-20803 CBC with Diff - LAB USE ONLY 09:40:26 CDT 2 CPT-53150 Addl Vx - Ix admin via ID IM or jet injects without counseling by physician 09:40:21 CDT CPT-45808 Menactra Intramuscular Injectable 09:40:21 CDT CPT-72538 Addl Vx - Ix admin via ID IM or jet injects without counseling by physician 09:40:21 CDT CPT-01455 Gardasil 9 Intramuscular Suspension 0 9:40:21 CDT CPT-31199 First Vx - Ix admin via ID I M or jet injects without counseling by physician 09:40:21 CDT CPT-31669 Havrix Intramuscular Suspension 720 EL U /0.5ML 09:40:21 CDT CPT-J2930 Solu Medrol 125 mg (Methyl Prednisolone Sodium Succinate) 09:43:26 CDT CPT-24935 Abx/Therapy Injection 09:43:26 CDT CPT-J2930 Solu Medrol 125 mg (Methyl Prednisolone Sodium Succinate) 09:05:55 CDT CPT-17199 Abx/Therapy Injection 09:05:55 CDT CPT-95087 Venipuncture Draw Fee 14:01:33 CDT CPT-40913 EKG Trac and Interp 11:22:04 CDT CPT-48360 Venipuncture Draw Fee 10:53:35 CDT CPT-J2930 Solu Medrol 125 mg (Methyl Prednisolone Sodium Succinate) 09:29:26 CDT CPT-24941 Abx/Therapy Injection 09:29:26 CDT CPT-Cryo Cryotherapy 16:51:37 TRAY SERVER
--- OUTSIDE RECORDS SUMMARY | 2019-07-22 19:43 | XMS REPORT | Clinical Summary ---
Author Author Yovanny, Clarisa Christopher Organization [facility] Address Unknown Phone Unavailable Allergies, Adverse Reactions, [...] twice daily, for anxiety 2016 BUSPIRONE HCL 24419965535 Active Shannan Gibbs APRN Active PROZAC 20 MG CAP Take 1 tab daily. FLUOXETINE HCL 31633522841 Active Shannan Gibbs APRN Active PROZAC 10 MG CAP Take 1 tab daily for 1 week. Then increa se to 20mg daily. FLUOXETINE HCL 30137969095 Active Shannan Gibbs APRN Active CITALOPRAM HYDROBROMIDE 20 MG ORAL TABS take 1 tab po qday for depresion and anxiety. CITALOPRAM HYDROBROMIDE 77389455478 No L onger Active Shannan Gibbs APRN Active CYANOCOBALAMIN 1000 MCG/ML INJ SOLN 1 injection weekly for 1 month, than 1 a month for 2 months. recheck lab CYANOCOBALAMIN 11188218947 No Longer Active Shannan Gibbs APRN Active ULTRAM 50 MG TAB 1 TAB PO Q 6 HRS PRN HEADACHE TRAMADOL HCL 55160542805 Active Adrián Varghese MD Active ULTRAM 50 MG TAB take 1 tab po q 6 hrs prn headache pain TRAMADOL HCL 89577389138 No Longer Active Adrián Varghese MD Acti ve CLINDAMYCIN PHOSPHATE 2 % CREA apply cream to acne BID prn 06/14 CLINDAMYCIN PHOSPHATE 40216033619 No Longer Active Adrián Joseph Active MINOCYCLINE HCL 100 MG CAPS take one po BID MINOCYCLINE HCL 63734500028 No Longer Active Adrián Varghese MD Acti ve TRI-SPRINTEC 0.18/0.215/0.25 MG-35 MCG TABS 1 po qd as directed 201 07/04/00 NORGESTIM-ETH ESTRAD TRIPHASIC 61837191843 Active Adrián Varghese MD Active ZITHROMAX 250 MG TAB 2 po today, then 1 po q days 2-5 AZITHROMYCIN 05742906082 No Longer Active Adrián Varghese MD Acti ve ZITHROMAX 250 MG TAB 2 po today, then 1 po q days 2-5 AZITHROMYCIN 60405953658 No Longer Active Adrián Varghese MD Acti ve PREDNISONE 20 MG TAB 2 tabs daily for 3 days, 1 t ab daily for 3 days, 1/2 tab daily for 2 days PREDNISONE 43960619800 No Longer Active Adrián Varghese MD Active ZANTAC 75 75 MG TABS take 1 po BID RANITIDINE H CL 06224131143 No Longer Active Uriel BOYD Active BENZACLIN 1-5 % GEL apply to skin BID prn for acne 201 05/05/14 CLINDAMYCIN PHOS-BENZOYL PEROX 42582714358 No Longer Active Uriel BOYD Active BENZACLIN 1-5 % GEL apply to skin BID prn for acne 201 05/05/14 BENZACLIN 1-5 % GEL 371255 CLINDAMYCIN PHOS-BENZOYL PEROX Inactive MINOCYCLINE HCL 100 MG CAPS take one po BID MINOCYCLINE HCL 100 MG CAPS 191739 MINOCYCLINE HCL Inactive CLINDAMYCIN PHOSPHATE 2 % CREA apply cream to acne BID prn 06/14 CLINDAMYCIN PHOSPHATE 2 % CREA 856916 CLINDAMYCIN PHOSP HATE Inactive ULTRAM 50 MG TAB take 1 tab po q 6 hrs prn headache pain ULTRAM 50 MG TAB 110671 TRAMADOL HCL Inactive CYANOCOBALAMIN 1000 MCG/ML INJ SOLN 1 injection weekly for 1 month, than 1 a month for 2 months. recheck lab CYANOCOB ALAMIN 1000 MCG/ML INJ SOLN 071685 CYANOCOBALAMIN Inactive CITALOPRAM HYDROBROMIDE 20 MG ORAL TABS take 1 tab po qday for depresion and anxiety. CITALOPRAM HYDROBROMIDE 20 MG ORAL TABS 2 55490 CITALOPRAM HYDROBROMIDE Inactive ZANTAC 75 75 MG TABS take 1 po BID ZANTAC 75 75 MG TABS 865185 RANITIDINE HCL Inactive PREDNISONE 20 MG TAB 2 tabs daily for 3 days, 1 t ab daily for 3 days, 1/2 tab daily for 2 days PREDNISONE 20 MG TAB 251608 PREDNISON E Inactive ZITHROMAX 250 MG TAB 2 po today, then 1 po q days 2-5 ZITHROMAX 250 MG TAB 199580 AZITHROMYCIN Inactive ZITHROMAX 250 MG TAB 2 po today, then 1 po q days 2-5 ZITHROMAX 250 MG TAB 024471 AZITHROMYCIN Inactive Immunizations Vaccine Administration Date Value [...] - Chem istry sodium, serum 139 mmol/L 154-989 7910/09/06 carbon dioxide, venous blood 25.3 mmol/L 21.0-32 [...] 0.20-1.00 Encounters Code Encounter Date Provider Facility CPT-46960 Level 4 Est. Patient 14:07:40 CDT Hubert WARD [facility] CPT-41536 Level 4 Est. Patient 13:54:09 CDT Adrián dyson MD [facility] CPT-15571 Level 3 Est. Patient 09:22:14 CDT Adrián dyson MD [facility] CPT-63079 Level 3 Est. Patient 08:59:31 CDT Adrián dyson MD [facility] CPT-22925 Level 3 Est. Patient 11:58:31 CDT Adrián dyson MD [facility] CPT-61530 Level 3 Est. Patient 09:06:35 CDT Adrián dyson MD [facility] CPT-17393 Level 3 Est. Patient 09:18:45 CDT Adrián dyson MD [facility] CPT-72780 Level 3 Est. Patient 09:13:22 CDT Adrián dyson MD [facility] CPT-40167 Level 3 Est. Patient 18:04:31 CHIEF LEARNING OFFICER Adrián dyson MD [facility] CPT-48964 Level 4 Est. Patient 14:00:53 CDT Uriel BOYD [facility] CPT-93973 Level 3 Est. Patient 20:00:09 CDT Terry jenkins DO [facility] CPT-03188 Level 3 Est. Patient 08:45:08 CDT Richcristian Ashleyclarissa bhatia [facility] CPT-38249 Level 3 Est. Patient 09:09:26 CDT Uriel hintonist [facility] CPT-27531 Level 3 Est. Patient 16:32:31 CDT Adrián dyson MD [facility] CPT-30403 Level 3 Est. Patient 09:35:27 CHIEF LEARNING OFFICER Norman fuentse [facility] CPT-02473 Level 2 Est. Patient 16:51:37 CHIEF LEARNING OFFICER Adrián dyson MD [facility] CPT-29150 Level 3 Est. Patient 10:00:11 CHIEF LEARNING OFFICER Ace Arriaza MD [facility] Procedures Code Procedure Name Date Entry Date Standard Desc ription CPT-15192 First Vx - Ix admin via ID I M or jet injects without counseling by physician 14:18:02 CDT CPT-81530 Gardasil 9 Intramuscular Suspension 1 4:18:02 CDT CPT-J3420 Vitamin B12 1000mcg (Cyanocobalamin) 16:30:23 CDT CPT-15114 Abx/Therapy Injection 16:30:23 CDT CPT-J3420 Vitamin B12 1000mcg (Cyanocobalamin) 16:09:42 CDT CPT-81168 Abx/Therapy Injection 16:09:42 CDT CPT-J3420 Vitamin B12 1000mcg (Cyanocobalamin) 15:22:47 CDT CPT-82194 Abx/Therapy Injection 15:22:47 CDT CPT-J3420 Vitamin B12 1000mcg (Cyanocobalamin) 17:00:35 CDT CPT-57248 Abx/Therapy Injection 17:00:35 CDT CPT-03306 First Vx - Ix admin via ID I M or jet injects without counseling by physician 16:04:17 CHIEF LEARNING OFFICER CPT-18312 Gardasil 9 Intramuscular Suspension 1 6:04:17 CHIEF LEARNING OFFICER CPT-61402 Venipuncture Draw Fee 09:40:26 CDT CPT-55476 [place] [facility] - LAB USE ONLY 09:40:26 CDT 11/30 CPT-94214 CBC with Diff - LAB USE ONLY 09:40:26 CDT 2 CPT-57017 Addl Vx - Ix admin via ID IM or jet injects without counseling by physician 09:40:21 CDT CPT-10464 Menactra Intramuscular Injectable 09:40:21 CDT CPT-83786 Addl Vx - Ix admin via ID IM or jet injects without counseling by physician 09:40:21 CDT CPT-46947 Gardasil 9 Intramuscular Suspension 0 9:40:21 CDT CPT-57977 First Vx - Ix admin via ID I M or jet injects without counseling by physician 09:40:21 CDT CPT-10854 Havrix Intramuscular Suspension 720 EL U /0.5ML 09:40:21 CDT CPT-J2930 Solu Medrol 125 mg (Methyl Prednisolone Sodium Succinate) 09:43:26 CDT CPT-86013 Abx/Therapy Injection 09:43:26 CDT CPT-J2930 Solu Medrol 125 mg (Methyl Prednisolone Sodium Succinate) 09:05:55 CDT CPT-42362 Abx/Therapy Injection 09:05:55 CDT CPT-40557 Venipuncture Draw Fee 14:01:33 CDT CPT-50745 EKG Trac and Interp 11:22:04 CDT CPT-78412 Venipuncture Draw Fee 10:53:35 CDT CPT-J2930 Solu Medrol 125 mg (Methyl Prednisolone Sodium Succinate) 09:29:26 CDT CPT-00323 Abx/Therapy Injection 09:29:26 CDT CPT-Cryo Cryotherapy 16:51:37 CHIEF LEARNING OFFICER
--- OUTSIDE RECORDS SUMMARY | 2019-07-22 19:43 | XMS REPORT | Clinical Summary ---
Author Author Yovanny, Clarisa Christopher Organization [facility] Address Unknown Phone Unavailable Allergies, Adverse [...] to acne BID prn 06/14 CLINDAMYCIN PHOSPHATE 56485840216 No Longer Active Adrián Joseph Active MINOCYCLINE HCL 100 MG CAPS take one po BID MINOCYCLINE HCL 99758947933 No Longer Active Adrián Varghese MD Acti ve TRI-SPRINTEC 0.18/0.215/0.25 MG-35 MCG TABS 1 po qd as directed 201 07/04/00 NORGESTIM-ETH ESTRAD TRIPHASIC 64422151078 Active Adrián Varghese MD Active ZITHROMAX 250 MG TAB 2 po today, then 1 po q days 2-5 AZITHROMYCIN 85506711763 No Longer Active Adrián Varghese MD Acti ve ULTRAM 50 MG TAB take 1 tab po q 6 hrs prn headache pain TRAMADOL HCL 89888891597 Active Adrián Varghese MD Active ZITHROMAX 250 MG TAB 2 po today, then 1 po q days 2-5 AZITHROMYCIN 65384062261 No Longer Active Adrián Varghese MD Acti ve PREDNISONE 20 MG TAB 2 tabs daily for 3 days, 1 t ab daily for 3 days, 1/2 tab daily for 2 days PREDNISONE 00451052457 No Longer Active Adrián Varghese MD Active ZANTAC 75 75 MG TABS take 1 po BID RANITIDINE H CL 66199647658 No Longer Active Uriel BODY Active BENZACLIN 1-5 % GEL apply to skin BID prn for acne 201 05/05/14 CLINDAMYCIN PHOS-BENZOYL PEROX 57714856272 No Longer Active Uriel BOYD Active BENZACLIN 1-5 % GEL apply to skin BID prn for acne 201 05/05/14 BENZACLIN 1-5 % GEL 773085 CLINDAMYCIN PHOS-BENZOYL PEROX Inactive MINOCYCLINE HCL 100 MG CAPS take one po BID MINOCYCLINE HCL 100 MG CAPS 281891 MINOCYCLINE HCL Inactive CLINDAMYCIN PHOSPHATE 2 % CREA apply cream to acne BID prn 06/14 CLINDAMYCIN PHOSPHATE 2 % CREA 151246 CLINDAMYCIN PHOSP HATE Inactive ZANTAC 75 75 MG TABS take 1 po BID ZANTAC 75 75 MG TABS 125959 RANITIDINE HCL Inactive PREDNISONE 20 MG TAB 2 tabs daily for 3 days, 1 t ab daily for 3 days, 1/2 tab daily for 2 days PREDNISONE 20 MG TAB 467572 PREDNISON E Inactive ZITHROMAX 250 MG TAB 2 po today, then 1 po q days 2-5 ZITHROMAX 250 MG TAB 3063357 AZITHROMYCIN Inactive ZITHROMAX 250 MG TAB 2 po today, then 1 po q days 2-5 ZITHROMAX 250 MG TAB 5688746 AZITHROMYCIN Inactive Immunizations Vaccine Administration Date Value [...] 142-424 Encounters Code Encounter Date Provider Facility CPT-92929 Level 3 Est. Patient 09:22:14 CDT Adrián dyson MD [facility] CPT-94625 Level 3 Est. Patient 08:59:31 CDT Adrián dyson MD [facility] CPT-99208 Level 3 Est. Patient 11:58:31 CDT Adrián dyson MD [facility] CPT-73074 Level 3 Est. Patient 09:06:35 CDT Adrián dyson MD [facility] CPT-74117 Level 3 Est. Patient 09:18:45 CDT Adrián dyson MD [facility] CPT-08948 Level 3 Est. Patient 09:13:22 CDT Adrián dyson MD [facility] CPT-13906 Level 3 Est. Patient 18:04:31 BACK SEWER Adrián dyson MD [facility] CPT-93328 Level 4 Est. Patient 14:00:53 CDT Uriel bhatia [facility] CPT-10237 Level 3 Est. Patient 20:00:09 CDT Terry jenkins DO [facility] CPT-23287 Level 3 Est. Patient 08:45:08 CDT Uriel bhatia [facility] CPT-97157 Level 3 Est. Patient 09:09:26 CDT Uriel bhatia [facility] CPT-44605 Level 3 Est. Patient 16:32:31 CDT Adrián dyson MD [facility] CPT-43241 Level 3 Est. Patient 09:35:27 BACK SEWER Norman fuentes [facility] CPT-88503 Level 2 Est. Patient 16:51:37 BACK SEWER Adrián dyson MD [facility] CPT-89832 Level 3 Est. Patient 10:00:11 BACK SEWER Ace Arriaza MD [facility] Procedures Code Procedure Name Date Entry Date Standard Desc ription CPT-51186 Venipuncture Draw Fee 09:40:26 CDT CPT-50021 [place] [facility] - LAB USE ONLY 09:40:26 CDT 11/30 CPT-85158 CBC with Diff - LAB USE ONLY 09:40:26 CDT 2 CPT-16731 Addl Vx - Ix admin via ID IM or jet injects without counseling by physician 09:40:21 CDT CPT-27449 Menactra Intramuscular Injectable 09:40:21 CDT CPT-43322 Addl Vx - Ix admin via ID IM or jet injects without counseling by physician 09:40:21 CDT CPT-19610 Gardasil 9 Intramuscular Suspension 0 9:40:21 CDT CPT-71739 First Vx - Ix admin via ID I M or jet injects without counseling by physician 09:40:21 CDT CPT-75788 Havrix Intramuscular Suspension 720 EL U /0.5ML 09:40:21 CDT CPT-J2930 Solu Medrol 125 mg (Methyl Prednisolone Sodium Succinate) 09:43:26 CDT CPT-49582 Abx/Therapy Injection 09:43:26 CDT CPT-J2930 Solu Medrol 125 mg (Methyl Prednisolone Sodium Succinate) 09:05:55 CDT CPT-09561 Abx/Therapy Injection 09:05:55 CDT CPT-45677 Venipuncture Draw Fee 14:01:33 CDT CPT-01473 EKG Trac and Interp 11:22:04 CDT CPT-99687 Venipuncture Draw Fee 10:53:35 CDT CPT-J2930 Solu Medrol 125 mg (Methyl Prednisolone Sodium Succinate) 09:29:26 CDT CPT-74008 Abx/Therapy Injection 09:29:26 CDT CPT-Cryo Cryotherapy 16:51:37 BACK SEWER
--- OUTSIDE RECORDS SUMMARY | 2019-07-22 19:43 | XMS REPORT | Clinical Summary ---
Author Author Yovanny, Clarisa Christopher Organization [facility] Address Unknown Phone Unavailable Allergies, Adverse Reactions, [...] Q 6 HRS PRN HEADACHE TRAMADOL HCL 56567710788 Active Adrián Varghese MD Active CYANOCOBALAMIN 1000 MCG/ML INJ SOLN 1 injection weekly for 1 month, than 1 a month for 2 months. recheck lab CYANOCOBALAMIN 33984733262 Active Samreen Cristo Active CITALOPRAM HYDROBROMIDE 20 MG ORAL TABS take 1 tab po qday for depresion and anxiety. CITALOPRAM HYDROBROMIDE 36489203900 Active Adrián Varghese MD Active ULTRAM 50 MG TAB take 1 tab po q 6 hrs prn headache pain TRAMADOL HCL 08122041495 No Longer Active Adrián Varghese MD Acti ve CLINDAMYCIN PHOSPHATE 2 % CREA apply cream to acne BID prn 06/14 CLINDAMYCIN PHOSPHATE 19778267276 No Longer Active Adrián Joseph Active MINOCYCLINE HCL 100 MG CAPS take one po BID MINOCYCLINE HCL 09934471956 No Longer Active Adrián Varghese MD Acti ve TRI-SPRINTEC 0.18/0.215/0.25 MG-35 MCG TABS 1 po qd as directed 201 07/04/00 NORGESTIM-ETH ESTRAD TRIPHASIC 23580790500 Active Adrián Varghese MD Active ZITHROMAX 250 MG TAB 2 po today, then 1 po q days 2-5 AZITHROMYCIN 59001752089 No Longer Active Adrián Varghese MD Acti ve ZITHROMAX 250 MG TAB 2 po today, then 1 po q days 2-5 AZITHROMYCIN 63242342637 No Longer Active Adrián Varghese MD Acti ve PREDNISONE 20 MG TAB 2 tabs daily for 3 days, 1 t ab daily for 3 days, 1/2 tab daily for 2 days PREDNISONE 28009564558 No Longer Active Adrián Varghese MD Active ZANTAC 75 75 MG TABS take 1 po BID RANITIDINE H CL 55180241649 No Longer Active Uriel BOYD Active BENZACLIN 1-5 % GEL apply to skin BID prn for acne 201 05/05/14 CLINDAMYCIN PHOS-BENZOYL PEROX 07883130080 No Longer Active Uriel BOYD Active BENZACLIN 1-5 % GEL apply to skin BID prn for acne 201 05/05/14 BENZACLIN 1-5 % GEL 443173 CLINDAMYCIN PHOS-BENZOYL PEROX Inactive MINOCYCLINE HCL 100 MG CAPS take one po BID MINOCYCLINE HCL 100 MG CAPS 104079 MINOCYCLINE HCL Inactive CLINDAMYCIN PHOSPHATE 2 % CREA apply cream to acne BID prn 06/14 CLINDAMYCIN PHOSPHATE 2 % CREA 017790 CLINDAMYCIN PHOSP HATE Inactive ULTRAM 50 MG TAB take 1 tab po q 6 hrs prn headache pain ULTRAM 50 MG TAB 756403 TRAMADOL HCL Inactive ZANTAC 75 75 MG TABS take 1 po BID ZANTAC 75 75 MG TABS 895320 RANITIDINE HCL Inactive PREDNISONE 20 MG TAB 2 tabs daily for 3 days, 1 t ab daily for 3 days, 1/2 tab daily for 2 days PREDNISONE 20 MG TAB 070419 PREDNISON E Inactive ZITHROMAX 250 MG TAB 2 po today, then 1 po q days 2-5 ZITHROMAX 250 MG TAB 1244738 AZITHROMYCIN Inactive ZITHROMAX 250 MG TAB 2 po today, then 1 po q days 2-5 ZITHROMAX 250 MG TAB 6685265 AZITHROMYCIN Inactive Immunizations Vaccine Administration Date Value [...] [phone] Encounters Code Encounter Date Provider Facility CPT-94187 Level 4 Est. Patient 13:54:09 CDT Adrián dyson MD [facility] CPT-09496 Level 3 Est. Patient 09:22:14 CDT Adrián dyson MD [facility]-45137 Level 3 Est. Patient 08:59:31 CDT Adrián dyson MD [facility]-88006 Level 3 Est. Patient 11:58:31 CDT Adrián dyson MD [facility] CPT-01859 Level 3 Est. Patient 09:06:35 CDT Adrián dyson MD [facility] CPT-82989 Level 3 Est. Patient 09:18:45 CDT Adrián dyson MD [facility] CPT-73657 Level 3 Est. Patient 09:13:22 CDT Adrián dyson MD [facility] CPT-04650 Level 3 Est. Patient 18:04:31 AERONAUTICS COMMISSION DIRECTOR Adrián dyson MD [facility] CPT-01042 Level 4 Est. Patient 14:00:53 CDT Uriel bhatia [facility] CPT-34420 Level 3 Est. Patient 20:00:09 CDT Terry jenkins DO [facility] CPT-96789 Level 3 Est. Patient 08:45:08 CDT Uriel bhatia [facility] CPT-02639 Level 3 Est. Patient 09:09:26 CDT Uriel bhatia [facility] CPT-78264 Level 3 Est. Patient 16:32:31 CDT Adrián dyson MD [facility] CPT-72126 Level 3 Est. Patient 09:35:27 AERONAUTICS COMMISSION DIRECTOR Norman Aguilararnulfo BOYD [facility] CPT-57019 Level 2 Est. Patient 16:51:37 AERONAUTICS COMMISSION DIRECTOR Adrián dyson MD [facility] CPT-55129 Level 3 Est. Patient 10:00:11 AERONAUTICS COMMISSION DIRECTOR Ace Arriaza MD [facility] Procedures Code Procedure Name Date Entry Date Standard Desc ription CPT-J3420 Vitamin B12 1000mcg (Cyanocobalamin) 16:09:42 CDT CPT-16875 Abx/Therapy Injection 16:09:42 CDT CPT-J3420 Vitamin B12 1000mcg (Cyanocobalamin) 15:22:47 CDT CPT-09785 Abx/Therapy Injection 15:22:47 CDT CPT-J3420 Vitamin B12 1000mcg (Cyanocobalamin) 17:00:35 CDT CPT-98952 Abx/Therapy Injection 17:00:35 CDT CPT-23959 First Vx - Ix admin via ID I M or jet injects without counseling by physician 16:04:17 AERONAUTICS COMMISSION DIRECTOR CPT-23682 Gardasil 9 Intramuscular Suspension 1 6:04:17 AERONAUTICS COMMISSION DIRECTOR CPT-11800 Venipuncture Draw Fee 09:40:26 CDT CPT-01225 [place] - LAB USE ONLY 09:40:26 CDT 11/30 CPT-22227 CBC with Diff - LAB USE ONLY 09:40:26 CDT 2 CPT-96801 Addl Vx - Ix admin via ID IM or jet injects without counseling by physician 09:40:21 CDT CPT-17716 Menactra Intramuscular Injectable 09:40:21 CDT CPT-81946 Addl Vx - Ix admin via ID IM or jet injects without counseling by physician 09:40:21 CDT CPT-96922 Gardasil 9 Intramuscular Suspension 0 9:40:21 CDT CPT-08945 First Vx - Ix admin via ID I M or jet injects without counseling by physician 09:40:21 CDT CPT-74351 Havrix Intramuscular Suspension 720 EL U /0.5ML 09:40:21 CDT CPT-J2930 Solu Medrol 125 mg (Methyl Prednisolone Sodium Succinate) 09:43:26 CDT CPT-29023 Abx/Therapy Injection 09:43:26 CDT CPT-J2930 Solu Medrol 125 mg (Methyl Prednisolone Sodium Succinate) 09:05:55 CDT CPT-20433 Abx/Therapy Injection 09:05:55 CDT CPT-05165 Venipuncture Draw Fee 14:01:33 CDT CPT-81697 EKG Trac and Interp 11:22:04 CDT CPT-81513 Venipuncture Draw Fee 10:53:35 CDT CPT-J2930 Solu Medrol 125 mg (Methyl Prednisolone Sodium Succinate) 09:29:26 CDT CPT-72556 Abx/Therapy Injection 09:29:26 CDT CPT-Cryo Cryotherapy 16:51:37 AERONAUTICS COMMISSION DIRECTOR
--- NOTE | 2019-07-22 19:44 | ED General ---
General Stated Complaint: COUGH/FEVER/BODY ACHES Source of Information: Patient Exam Limitations: No Limitations History of Present Illness Date Seen by Provider: July 22, 2019 Time Seen by Provider: 19:39 Initial Comments To ER with the report of body aches, chills that began this morning on awakening. Doesn't have a thermometer at home. Denies just started a new job [employer] in [place] last week. He has not traveled outside of the [facility] in over 14 days. No known exposure to ill contacts Timing/Duration: 1-2 Days Severity: Moderate Associated Systoms: Fever/Chills, Malaise Allergies and Home Medications Patient Home Medication List Home Medication List Reviewed: Yes Review of Systems Review of Systems Constitutional: see HPI, chills, malaise, weakness EENTM: see HPI Respiratory: no symptoms reported Genitourinary: no symptoms reported Musculoskeletal: see HPI, muscle pain Skin: no symptoms reported Psychiatric/Neurological: No Symptoms Reported Hematologic/Lymphatic: No Symptoms Reported Past Atzisld-Rhkbzu-Vcqfrk Hx Patient Social History Recent Foreign Travel: No Contact w/Someone Who Travel: No Physical Exam Vital Signs Capillary Refill : Height, Weight, BMI Height: '" Weight: lbs. oz. kg; BMI Method: General Appearance: No Apparent Distress, WD/WN, Other (no distress oxygen 100% room air no tachypnea) Eyes: Bilateral Eye Normal Inspection, Bilateral Eye PERRL HEENT: PERRL/EOMI, TMs Normal, Normal ENT Inspection Neck: Full Range of Motion, Normal Inspection Respiratory: Chest Non Tender, Lungs Clear, Normal Breath Sounds, No Accessory Muscle Use, No Respiratory Distress Cardiovascular: Regular Rate, Rhythm, Normal Peripheral Pulses Gastrointestinal: Non Tender, Soft Extremity: Normal Capillary Refill, Normal Inspection Neurologic/Psychiatric: Alert, Oriented x3, No Motor/Sensory Deficits Skin: Normal Color, Warm/Dry Progress/Results/Core Measures Suspected Sepsis SIRS Temperature: Pulse: Respiratory Rate: Blood Pressure / Mean: Results/Orders My Orders Orders - AN BELTRAN APRN Hs C Reactive Protein (07/22/19 19:35) Cbc With Automated Diff (07/22/19 19:35) Monotest (07/22/19 19:35) Influenza A And B Antigens (07/22/19 19:35) Coronavirus Sars-Cov-2 So 2019 (07/22/19 19:35) Vital Signs/I&O Capillary Refill : Departure Impression Primary Impression: Viral syndrome Disposition: 01 HOME, SELF-CARE Condition: Stable Departure-Patient Inst. Decision time for Depature: 19:44 Referrals: NO,LOCAL PHYSICIAN (PCP) Primary Care Physician Patient Instructions: Viral Syndrome (DC) Add. Discharge Instructions: 1. Tylenol for body aches or fever. Drink plenty of fluids, get plenty of rest. Return to ER for any concerns. The COVID swab should be resulted in about 24-48 hours. Work/School Note: Work Release Form Date Seen in the Emergency Department: July 22, 2019 Return to Work: July 25, 2019 AN BELTRAN APRN July 22, 2019 19:44
--- OUTSIDE RECORDS SUMMARY | 2019-07-22 19:44 | XMS REPORT | Clinical Summary ---
Author Author Yovanny, Clarisa Christopher Organization [facility] Address Unknown Phone Unavailable Allergies, Adverse Reactions, [...] to acne BID prn 06/14 CLINDAMYCIN PHOSPHATE 50881721075 No Longer Active Adrián Joseph Active MINOCYCLINE HCL 100 MG CAPS take one po BID MINOCYCLINE HCL 78678540042 No Longer Active Adrián Varghese MD Acti ve TRI-SPRINTEC 0.18/0.215/0.25 MG-35 MCG TABS 1 po qd as directed 201 07/04/00 NORGESTIM-ETH ESTRAD TRIPHASIC 22817964831 Active Adrián Varghese MD Active ZITHROMAX 250 MG TAB 2 po today, then 1 po q days 2-5 AZITHROMYCIN 86763788985 No Longer Active Adrián Varghese MD Acti ve ULTRAM 50 MG TAB take 1 tab po q 6 hrs prn headache pain TRAMADOL HCL 91910964931 Active Adrián Varghese MD Active ZITHROMAX 250 MG TAB 2 po today, then 1 po q days 2-5 AZITHROMYCIN 44246663880 No Longer Active Adrián Varghese MD Acti ve PREDNISONE 20 MG TAB 2 tabs daily for 3 days, 1 t ab daily for 3 days, 1/2 tab daily for 2 days PREDNISONE 52648392630 No Longer Active Adrián Varghese MD Active ZANTAC 75 75 MG TABS take 1 po BID RANITIDINE H CL 46868021173 No Longer Active Uriel BOYD Active BENZACLIN 1-5 % GEL apply to skin BID prn for acne 201 05/05/14 CLINDAMYCIN PHOS-BENZOYL PEROX 10365306543 No Longer Active Uriel BOYD Active BENZACLIN 1-5 % GEL apply to skin BID prn for acne 201 05/05/14 BENZACLIN 1-5 % GEL 820509 CLINDAMYCIN PHOS-BENZOYL PEROX Inactive MINOCYCLINE HCL 100 MG CAPS take one po BID MINOCYCLINE HCL 100 MG CAPS 012107 MINOCYCLINE HCL Inactive CLINDAMYCIN PHOSPHATE 2 % CREA apply cream to acne BID prn 06/14 CLINDAMYCIN PHOSPHATE 2 % CREA 743427 CLINDAMYCIN PHOSP HATE Inactive ZANTAC 75 75 MG TABS take 1 po BID ZANTAC 75 75 MG TABS 515918 RANITIDINE HCL Inactive PREDNISONE 20 MG TAB 2 tabs daily for 3 days, 1 t ab daily for 3 days, 1/2 tab daily for 2 days PREDNISONE 20 MG TAB 134965 PREDNISON E Inactive ZITHROMAX 250 MG TAB 2 po today, then 1 po q days 2-5 ZITHROMAX 250 MG TAB 8763178 AZITHROMYCIN Inactive ZITHROMAX 250 MG TAB 2 po today, then 1 po q days 2-5 ZITHROMAX 250 MG TAB 6621883 AZITHROMYCIN Inactive Immunizations Vaccine Administration Date Value [...] Measured Encounters Code Encounter Date Provider Facility CPT-24752 Level 3 Est. Patient 09:22:14 CDT Adrián dyson MD [facility] CPT-01582 Level 3 Est. Patient 08:59:31 CDT Adrián dyson MD [facility] CPT-78887 Level 3 Est. Patient 11:58:31 CDT Adrián dyson MD [facility] CPT-02963 Level 3 Est. Patient 09:06:35 CDT Adrián dyson MD [facility] CPT-46985 Level 3 Est. Patient 09:18:45 CDT Adrián dyson MD [facility] CPT-57052 Level 3 Est. Patient 09:13:22 CDT Adrián dyson MD [facility] CPT-44924 Level 3 Est. Patient 18:04:31 PATIENT ACCESS REPRESENTATIVE Adrián dyson MD [facility] CPT-93211 Level 4 Est. Patient 14:00:53 CDT Uriel bhatia [facility] CPT-27625 Level 3 Est. Patient 20:00:09 CDT Terry jenkins DO [facility] CPT-62284 Level 3 Est. Patient 08:45:08 CDT Uriel bhatia [facility] CPT-28693 Level 3 Est. Patient 09:09:26 CDT Uriel Ivy sriram [facility]-39764 Level 3 Est. Patient 16:32:31 CDT Adrián dyson MD [facility] CPT-61825 Level 3 Est. Patient 09:35:27 PATIENT ACCESS REPRESENTATIVE Norman fuentes [facility] CPT-07672 Level 2 Est. Patient 16:51:37 PATIENT ACCESS REPRESENTATIVE Adrián dyson MD [facility]-07283 Level 3 Est. Patient 10:00:11 PATIENT ACCESS REPRESENTATIVE Ace Arriaza MD [facility] Procedures Code Procedure Name Date Entry Date Standard Desc ription CPT-69207 Addl Vx - Ix admin via ID IM or jet injects without counseling by physician 09:40:21 CDT CPT-11768 Menactra Intramuscular Injectable 09:40:21 CDT CPT-98166 Addl Vx - Ix admin via ID IM or jet injects without counseling by physician 09:40:21 CDT CPT-29240 Gardasil 9 Intramuscular Suspension 0 9:40:21 CDT CPT-10395 First Vx - Ix admin via ID I M or jet injects without counseling by physician 09:40:21 CDT CPT-93159 Havrix Intramuscular Suspension 720 EL U /0.5ML 09:40:21 CDT CPT-J2930 Solu Medrol 125 mg (Methyl Prednisolone Sodium Succinate) 09:43:26 CDT CPT-12582 Abx/Therapy Injection 09:43:26 CDT CPT-J2930 Solu Medrol 125 mg (Methyl Prednisolone Sodium Succinate) 09:05:55 CDT CPT-84024 Abx/Therapy Injection 09:05:55 CDT CPT-86192 Venipuncture Draw Fee 14:01:33 CDT CPT-05719 EKG Trac and Interp 11:22:04 CDT CPT-36513 Venipuncture Draw Fee 10:53:35 CDT CPT-J2930 Solu Medrol 125 mg (Methyl Prednisolone Sodium Succinate) 09:29:26 CDT CPT-03964 Abx/Therapy Injection 09:29:26 CDT CPT-Cryo Cryotherapy 16:51:37 PATIENT ACCESS REPRESENTATIVE
--- OUTSIDE RECORDS SUMMARY | 2019-07-22 19:44 | XMS REPORT | Clinical Summary ---
[...] increa se to 20mg daily. FLUOXETINE HCL 84502468590 No Longer Active Hubert WARD Active PROZAC 20 MG CAP Take 1 tab daily FLUOXETINE HCL 63115790998 Active Shannan Gibbs APRN Active BUSPIRONE HCL 7.5 MG ORAL TABS 1 pill twice daily, for anxiety 2016 BUSPIRONE HCL 24054326275 Active Shannan Gibbs APRN Active CITALOPRAM HYDROBROMIDE 20 MG ORAL TABS take 1 tab po qday for depresion and anxiety. CITALOPRAM HYDROBROMIDE 76703083226 No L onger Active Shannan Gibbs APRN Active CYANOCOBALAMIN 1000 MCG/ML INJ SOLN 1 injection weekly for 1 month, than 1 a month for 2 months. recheck lab CYANOCOBALAMIN 57806701279 No Longer Active Shannan Gibbs APRN Active ULTRAM 50 MG TAB 1 TAB PO Q 6 HRS PRN HEADACHE TRAMADOL HCL 67283977608 Active Adrián Varghese MD Active ULTRAM 50 MG TAB take 1 tab po q 6 hrs prn headache pain TRAMADOL HCL 52266795773 No Longer Active Adrián Varghese MD Acti ve CLINDAMYCIN PHOSPHATE 2 % CREA apply cream to acne BID prn 06/14 CLINDAMYCIN PHOSPHATE 82854028220 No Longer Active Adrián Joseph Active MINOCYCLINE HCL 100 MG CAPS take one po BID MINOCYCLINE HCL 34740474251 No Longer Active Adrián Varghese MD Acti ve TRI-SPRINTEC 0.18/0.215/0.25 MG-35 MCG TABS 1 po qd as directed 201 07/04/00 NORGESTIM-ETH ESTRAD TRIPHASIC 75694794092 Active 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 ZITHROMAX 250 MG TAB 2 po today, then 1 po q days 2-5 AZITHROMYCIN 71072583500 No Longer Active Adrián Varghese MD Acti ve ZITHROMAX 250 MG TAB 2 po today, then 1 po q days 2-5 AZITHROMYCIN 84812968716 No Longer Active Adrián Varghese MD Acti ve PREDNISONE 20 MG TAB 2 tabs daily for 3 days, 1 t ab daily for 3 days, 1/2 tab daily for 2 days PREDNISONE 04472218226 No Longer Active Adrián Varghese MD Active ZANTAC 75 75 MG TABS take 1 po BID RANITIDINE H CL 39443771585 No Longer Active Uriel BOYD Active BENZACLIN 1-5 % GEL apply to skin BID prn for acne 201 05/05/14 CLINDAMYCIN PHOS-BENZOYL PEROX 07921777716 No Longer Active Uriel BOYD Active BENZACLIN 1-5 % GEL apply to skin BID prn for acne 201 05/05/14 BENZACLIN 1-5 % GEL 496887 CLINDAMYCIN PHOS-BENZOYL PEROX Inactive MINOCYCLINE HCL 100 MG CAPS take one po BID MINOCYCLINE HCL 100 MG CAPS 834139 MINOCYCLINE HCL Inactive CLINDAMYCIN PHOSPHATE 2 % CREA apply cream to acne BID prn 06/14 CLINDAMYCIN PHOSPHATE 2 % CREA 180692 CLINDAMYCIN PHOSP HATE Inactive ULTRAM 50 MG TAB take 1 tab po q 6 hrs prn headache pain ULTRAM 50 MG TAB 203095 TRAMADOL HCL Inactive CYANOCOBALAMIN 1000 MCG/ML INJ SOLN 1 injection weekly for 1 month, than 1 a month for 2 months. recheck lab CYANOCOB ALAMIN 1000 MCG/ML INJ SOLN 325544 CYANOCOBALAMIN Inactive CITALOPRAM HYDROBROMIDE 20 MG ORAL TABS take 1 tab po qday for depresion and anxiety. CITALOPRAM HYDROBROMIDE 20 MG ORAL TABS 2 45926 CITALOPRAM HYDROBROMIDE Inactive PROZAC 10 MG CAP Take 1 tab daily for 1 week. Then increa se to 20mg daily. PROZAC 10 MG CAP 790000 FLUOXETINE HCL Inactive ZANTAC 75 75 MG TABS take 1 po BID ZANTAC 75 75 MG TABS 611326 RANITIDINE HCL Inactive PREDNISONE 20 MG TAB 2 tabs daily for 3 days, 1 t ab daily for 3 days, 1/2 tab daily for 2 days PREDNISONE 20 MG TAB 641024 PREDNISON E Inactive ZITHROMAX 250 MG TAB 2 po today, then 1 po q days 2-5 ZITHROMAX 250 MG TAB 491707 AZITHROMYCIN Inactive ZITHROMAX 250 MG TAB 2 po today, then 1 po q days 2-5 ZITHROMAX 250 MG TAB 221130 AZITHROMYCIN Inactive Immunizations Vaccine Administration Date Value [...] - Chem istry sodium, serum 139 mmol/L 156-067 7325/09/06 carbon dioxide, venous blood 25.3 mmol/L 21.0-32 [...] 0.20-1.00 Encounters Code Encounter Date Provider Facility CPT-62898 Level 4 Est. Patient 11:10:55 CDT Hubert [facility] CPT-72225 Level 4 Est. Patient 14:07:40 CDT Hubert PIG FARM MANAGER [facility] CPT-35564 Level 4 Est. Patient 13:54:09 CDT Adrián dyson MD [facility] CPT-60776 Level 3 Est. Patient 09:22:14 CDT Adrián dyson MD [facility] CPT-04137 Level 3 Est. Patient 08:59:31 CDT Adrián dyson MD [facility] CPT-08242 Level 3 Est. Patient 11:58:31 CDT Adrián dyson MD [facility] CPT-11774 Level 3 Est. Patient 09:06:35 CDT Adrián dyson MD [facility] CPT-54968 Level 3 Est. Patient 09:18:45 CDT Adrián dyson MD [facility] CPT-29979 Level 3 Est. Patient 09:13:22 CDT Adrián dyson MD [facility] CPT-30838 Level 3 Est. 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 Patient 14:00:53 CDT Uriel bhatia [facility] CPT-20670 Level 3 Est. Patient 20:00:09 CDT Terry jenkins DO [facility] CPT-09611 Level 3 Est. Patient 08:45:08 CDT Uriel bhatia [facility] CPT-90930 Level 3 Est. Patient 09:09:26 CDT Uriel Ivy sriram [facility] CPT-29570 Level 3 Est. Patient 16:32:31 CDT Adrián dyson MD [facility] CPT-52186 Level 3 Est. Patient 09:35:27 CARPENTER LABOR SUPERVISOR Norman fuentes [facility] CPT-21771 Level 2 Est. Patient 16:51:37 CARPENTER LABOR SUPERVISOR Adrián dyson MD [facility] CPT-41889 Level 3 Est. Patient 10:00:11 CARPENTER LABOR SUPERVISOR Ace Arriaza MD [facility] Procedures Code Procedure Name Date Entry Date Standard Desc ription CPT-73322 First Vx - Ix admin via ID I M or jet injects without counseling by physician 14:18:02 CDT CPT-40579 Gardasil 9 Intramuscular Suspension 1 4:18:02 CDT CPT-J3420 Vitamin B12 1000mcg (Cyanocobalamin) 16:30:23 CDT CPT-22379 Abx/Therapy Injection 16:30:23 CDT CPT-J3420 Vitamin B12 1000mcg (Cyanocobalamin) 16:09:42 CDT CPT-49373 Abx/Therapy Injection 16:09:42 CDT CPT-J3420 Vitamin B12 1000mcg (Cyanocobalamin) 15:22:47 CDT CPT-64620 Abx/Therapy Injection 15:22:47 CDT CPT-J3420 Vitamin B12 1000mcg (Cyanocobalamin) 17:00:35 CDT CPT-36259 Abx/Therapy Injection 17:00:35 CDT CPT-60180 First Vx - Ix admin via ID I M or jet injects without counseling by physician 16:04:17 CARPENTER LABOR SUPERVISOR CPT-06274 Gardasil 9 Intramuscular Suspension 1 6:04:17 CARPENTER LABOR SUPERVISOR CPT-23136 Venipuncture Draw Fee 09:40:26 CDT CPT-24694 [place] [facility] - LAB USE ONLY 09:40:26 CDT 11/30 CPT-71270 CBC with Diff - LAB USE ONLY 09:40:26 CDT 2 CPT-45022 Addl Vx - Ix admin via ID IM or jet injects without counseling by physician 09:40:21 CDT CPT-34765 Menactra Intramuscular Injectable 09:40:21 CDT CPT-57277 Addl Vx - Ix admin via ID IM or jet injects without counseling by physician 09:40:21 CDT CPT-62709 Gardasil 9 Intramuscular Suspension 0 9:40:21 CDT CPT-63676 First Vx - Ix admin via ID I M or jet injects without counseling by physician 09:40:21 CDT CPT-16720 Havrix Intramuscular Suspension 720 EL U /0.5ML 09:40:21 CDT CPT-J2930 Solu Medrol 125 mg (Methyl Prednisolone Sodium Succinate) 09:43:26 CDT CPT-36375 Abx/Therapy Injection 09:43:26 CDT CPT-J2930 Solu Medrol 125 mg (Methyl Prednisolone Sodium Succinate) 09:05:55 CDT CPT-21251 Abx/Therapy Injection 09:05:55 CDT CPT-55251 Venipuncture Draw Fee 14:01:33 CDT CPT-29741 EKG Trac and Interp 11:22:04 CDT CPT-25857 Venipuncture Draw Fee 10:53:35 CDT CPT-J2930 Solu Medrol 125 mg (Methyl Prednisolone Sodium Succinate) 09:29:26 CDT CPT-90937 Abx/Therapy Injection 09:29:26 CDT CPT-Cryo Cryotherapy 16:51:37 CARPENTER LABOR SUPERVISOR
--- OUTSIDE RECORDS SUMMARY | 2019-07-22 19:44 | XMS REPORT | Clinical Summary ---
Author Author Yovanny, Clarisa Christopher Organization [facility] Address Unknown Phone Unavailable Allergies, Adverse [...] Instructions Start Date Stop Date Generic Name [facility] Status Provider Patient Instruction CLINDAMYCIN PHOSPHATE 2 % CREA apply cream to acne BID prn 06/14 CLINDAMYCIN PHOSPHATE 11795893264 No Longer Active Adrián Joseph Active MINOCYCLINE HCL 100 MG CAPS take one po BID MINOCYCLINE HCL 81038331043 No Longer Active Adrián Varghese MD Acti ve TRI-SPRINTEC 0.18/0.215/0.25 MG-35 MCG TABS 1 po qd as directed 201 07/04/00 NORGESTIM-ETH ESTRAD TRIPHASIC 27096996338 Active Adrián Varghese MD Active ZITHROMAX 250 MG TAB 2 po today, then 1 po q days 2-5 AZITHROMYCIN 78393152671 No Longer Active Adrián Varghese MD Acti ve ULTRAM 50 MG TAB take 1 tab po q 6 hrs prn headache pain TRAMADOL HCL 96904271405 Active Adrián Varghese MD Active ZITHROMAX 250 MG TAB 2 po today, then 1 po q days 2-5 AZITHROMYCIN 06810183231 No Longer Active Adrián Varghese MD Acti ve PREDNISONE 20 MG TAB 2 tabs daily for 3 days, 1 t ab daily for 3 days, 1/2 tab daily for 2 days PREDNISONE 76383301228 No Longer Active Adrián Varghese MD Active ZANTAC 75 75 MG TABS take 1 po BID RANITIDINE H CL 14815799039 No Longer Active Uriel BOYD Active BENZACLIN 1-5 % GEL apply to skin BID prn for acne 201 05/05/14 CLINDAMYCIN PHOS-BENZOYL PEROX 06664800724 No Longer Active Uriel BOYD Active BENZACLIN 1-5 % GEL apply to skin BID prn for acne 201 05/05/14 BENZACLIN 1-5 % GEL 788100 CLINDAMYCIN PHOS-BENZOYL PEROX Inactive MINOCYCLINE HCL 100 MG CAPS take one po BID MINOCYCLINE HCL 100 MG CAPS 117791 MINOCYCLINE HCL Inactive CLINDAMYCIN PHOSPHATE 2 % CREA apply cream to acne BID prn 06/14 CLINDAMYCIN PHOSPHATE 2 % CREA 871718 CLINDAMYCIN PHOSP HATE Inactive ZANTAC 75 75 MG TABS take 1 po BID ZANTAC 75 75 MG TABS 686172 RANITIDINE HCL Inactive PREDNISONE 20 MG TAB 2 tabs daily for 3 days, 1 t ab daily for 3 days, 1/2 tab daily for 2 days PREDNISONE 20 MG TAB 113047 PREDNISON E Inactive ZITHROMAX 250 MG TAB 2 po today, then 1 po q days 2-5 ZITHROMAX 250 MG TAB 2984701 AZITHROMYCIN Inactive ZITHROMAX 250 MG TAB 2 po today, then 1 po q days 2-5 ZITHROMAX 250 MG TAB 6228154 AZITHROMYCIN Inactive Immunizations Vaccine Administration Date Value [...] Measured Encounters Code Encounter Date Provider Facility CPT-38309 Level 3 Est. Patient 08:59:31 CDT Adrián dyson MD [facility] CPT-35054 Level 3 Est. Patient 11:58:31 CDT Adrián dyson MD [facility] CPT-53540 Level 3 Est. Patient 09:06:35 CDT Adrián dyson MD [facility] CPT-81787 Level 3 Est. Patient 09:18:45 CDT Adrián dyson MD [facility] CPT-99653 Level 3 Est. Patient 09:13:22 CDT Adrián dyson MD [facility] CPT-96776 Level 3 Est. Patient 18:04:31 VIDEO JOURNALIST Adrián dyson MD [facility] CPT-53001 Level 4 Est. Patient 14:00:53 CDT Uriel bhatia [facility] CPT-85735 Level 3 Est. Patient 20:00:09 CDT Terry jenkins DO [facility] CPT-53466 Level 3 Est. Patient 08:45:08 CDT Uriel Ramirezclarissa bhatia [facility] CPT-70469 Level 3 Est. Patient 09:09:26 CDT Richcristian Ashleyclarissa bhatia [facility] CPT-52878 Level 3 Est. Patient 16:32:31 CDT Adrián dyson MD [facility] CPT-89497 Level 3 Est. Patient 09:35:27 VIDEO JOURNALIST Norman fuentes [facility] CPT-92361 Level 2 Est. Patient 16:51:37 VIDEO JOURNALIST Adrián dyson MD [facility] CPT-97317 Level 3 Est. Patient 10:00:11 VIDEO JOURNALIST Ace Arriaza MD [facility] Procedures Code Procedure Name Date Entry Date Standard Desc ription CPT-39069 Addl Vx - Ix admin via ID IM or jet injects without counseling by physician 09:40:21 CDT CPT-06505 Menactra Intramuscular Injectable 09:40:21 CDT CPT-16501 Addl Vx - Ix admin via ID IM or jet injects without counseling by physician 09:40:21 CDT CPT-64332 Gardasil 9 Intramuscular Suspension 0 9:40:21 CDT CPT-75506 First Vx - Ix admin via ID I M or jet injects without counseling by physician 09:40:21 CDT CPT-56645 Havrix Intramuscular Suspension 720 EL U /0.5ML 09:40:21 CDT CPT-J2930 Solu Medrol 125 mg (Methyl Prednisolone Sodium Succinate) 09:43:26 CDT CPT-33557 Abx/Therapy Injection 09:43:26 CDT CPT-J2930 Solu Medrol 125 mg (Methyl Prednisolone Sodium Succinate) 09:05:55 CDT CPT-25634 Abx/Therapy Injection 09:05:55 CDT CPT-83604 Venipuncture Draw Fee 14:01:33 CDT CPT-60285 EKG Trac and Interp 11:22:04 CDT CPT-86616 Venipuncture Draw Fee 10:53:35 CDT CPT-J2930 Solu Medrol 125 mg (Methyl Prednisolone Sodium Succinate) 09:29:26 CDT CPT-14887 Abx/Therapy Injection 09:29:26 CDT CPT-Cryo Cryotherapy 16:51:37 VIDEO JOURNALIST
--- OUTSIDE RECORDS SUMMARY | 2019-07-22 19:44 | XMS REPORT | Clinical Summary ---
Author Author Yovanny, Clarisa Christopher Organization [facility] Address Unknown Phone Unavailable Allergies, Adverse [...] Generic Name ND Status Provider Patient Instruction CYANOCOBALAMIN 1000 MCG/ML INJ SOLN 1 injection weekly for 1 month, than 1 a month for 2 months. recheck lab CYANOCOBALAMIN 29256682323 Active Samreenjamal Lemons Active CITALOPRAM HYDROBROMIDE 20 MG ORAL TABS take 1 tab po qday for depresion and anxiety. CITALOPRAM HYDROBROMIDE 95892217232 Active Adrián Varghese MD Active ULTRAM 50 MG TAB take 1 tab po q 6 hrs prn headache pain TRAMADOL HCL 90054175824 No Longer Active Adrián Varghese MD Acti ve CLINDAMYCIN PHOSPHATE 2 % CREA apply cream to acne BID prn 06/14 CLINDAMYCIN PHOSPHATE 17768378105 No Longer Active Adrián Joseph Active MINOCYCLINE HCL 100 MG CAPS take one po BID MINOCYCLINE HCL 55765366132 No Longer Active Adrián Varghese MD Acti ve TRI-SPRINTEC 0.18/0.215/0.25 MG-35 MCG TABS 1 po qd as directed 201 07/04/00 NORGESTIM-ETH ESTRAD TRIPHASIC 32166899970 Active Adrián Varghese MD Active ZITHROMAX 250 MG TAB 2 po today, then 1 po q days 2-5 AZITHROMYCIN 60111537349 No Longer Active Adrián Varghese MD Acti ve ZITHROMAX 250 MG TAB 2 po today, then 1 po q days 2-5 AZITHROMYCIN 06432515006 No Longer Active Adrián Varghese MD Acti ve PREDNISONE 20 MG TAB 2 tabs daily for 3 days, 1 t ab daily for 3 days, 1/2 tab daily for 2 days PREDNISONE 02116666022 No Longer Active Adrián Varghese MD Active ZANTAC 75 75 MG TABS take 1 po BID RANITIDINE H CL 00064219661 No Longer Active Uriel BOYD Active BENZACLIN 1-5 % GEL apply to skin BID prn for acne 201 05/05/14 CLINDAMYCIN PHOS-BENZOYL PEROX 62502637665 No Longer Active Uriel BOYD Active BENZACLIN 1-5 % GEL apply to skin BID prn for acne 201 05/05/14 BENZACLIN 1-5 % GEL 092905 CLINDAMYCIN PHOS-BENZOYL PEROX Inactive MINOCYCLINE HCL 100 MG CAPS take one po BID MINOCYCLINE HCL 100 MG CAPS 791016 MINOCYCLINE HCL Inactive CLINDAMYCIN PHOSPHATE 2 % CREA apply cream to acne BID prn 06/14 CLINDAMYCIN PHOSPHATE 2 % CREA 643473 CLINDAMYCIN PHOSP HATE Inactive ULTRAM 50 MG TAB take 1 tab po q 6 hrs prn headache pain ULTRAM 50 MG TAB 838244 TRAMADOL HCL Inactive ZANTAC 75 75 MG TABS take 1 po BID ZANTAC 75 75 MG TABS 329957 RANITIDINE HCL Inactive PREDNISONE 20 MG TAB 2 tabs daily for 3 days, 1 t ab daily for 3 days, 1/2 tab daily for 2 days PREDNISONE 20 MG TAB 653441 PREDNISON E Inactive ZITHROMAX 250 MG TAB 2 po today, then 1 po q days 2-5 ZITHROMAX 250 MG TAB 5810352 AZITHROMYCIN Inactive ZITHROMAX 250 MG TAB 2 po today, then 1 po q days 2-5 ZITHROMAX 250 MG TAB 4169060 AZITHROMYCIN Inactive Immunizations Vaccine Administration Date Value [...] 142-424 Encounters Code Encounter Date Provider Facility CPT-18651 Level 4 Est. Patient 13:54:09 CDT Adrián dyson MD [facility] CPT-87473 Level 3 Est. Patient 09:22:14 CDT Adrián dyson MD [facility]-42840 Level 3 Est. Patient 08:59:31 CDT Adrián dyson MD [facility]-82264 Level 3 Est. Patient 11:58:31 CDT Adrián dyson MD [facility] CPT-15098 Level 3 Est. Patient 09:06:35 CDT Adrián dyson MD [facility] CPT-26312 Level 3 Est. Patient 09:18:45 CDT Adriná dyson MD [facility] CPT-85595 Level 3 Est. Patient 09:13:22 CDT Adrián dyson MD [facility] CPT-76122 Level 3 Est. Patient 18:04:31 RETIREMENT OFFICER Adrián dyson MD [facility] CPT-37302 Level 4 Est. Patient 14:00:53 CDT Uriel bhatia [facility] CPT-62162 Level 3 Est. Patient 20:00:09 CDT Terry jenkins DO [facility]-62778 Level 3 Est. Patient 08:45:08 CDT Uriel bhatia [facility] CPT-49207 Level 3 Est. Patient 09:09:26 CDT Uriel bhatia [facility]-52782 Level 3 Est. Patient 16:32:31 CDT Adrián dyson MD [facility] CPT-61522 Level 3 Est. Patient 09:35:27 RETIREMENT OFFICER Norman BOYD [facility] CPT-71019 Level 2 Est. Patient 16:51:37 RETIREMENT OFFICER Adrián dyson MD [facility] CPT-19144 Level 3 Est. Patient 10:00:11 RETIREMENT OFFICER Ace Arriaza MD [facility] Procedures Code Procedure Name Date Entry Date Standard Desc ription CPT-J3420 Vitamin B12 1000mcg (Cyanocobalamin) 17:00:35 CDT CPT-53460 Abx/Therapy Injection 17:00:35 CDT CPT-96120 First Vx - Ix admin via ID I M or jet injects without counseling by physician 16:04:17 RETIREMENT OFFICER CPT-45241 Gardasil 9 Intramuscular Suspension 1 6:04:17 RETIREMENT OFFICER CPT-98941 Venipuncture Draw Fee 09:40:26 CDT CPT-49190 [place] [facility] - LAB USE ONLY 09:40:26 CDT 11/30 CPT-23864 CBC with Diff - LAB USE ONLY 09:40:26 CDT 2 CPT-60641 Addl Vx - Ix admin via ID IM or jet injects without counseling by physician 09:40:21 CDT CPT-77980 Menactra Intramuscular Injectable 09:40:21 CDT CPT-16681 Addl Vx - Ix admin via ID IM or jet injects without counseling by physician 09:40:21 CDT CPT-65203 Gardasil 9 Intramuscular Suspension 0 9:40:21 CDT CPT-96457 First Vx - Ix admin via ID I M or jet injects without counseling by physician 09:40:21 CDT CPT-64281 Havrix Intramuscular Suspension 720 EL U /0.5ML 09:40:21 CDT CPT-J2930 Solu Medrol 125 mg (Methyl Prednisolone Sodium Succinate) 09:43:26 CDT CPT-89199 Abx/Therapy Injection 09:43:26 CDT CPT-J2930 Solu Medrol 125 mg (Methyl Prednisolone Sodium Succinate) 09:05:55 CDT CPT-47353 Abx/Therapy Injection 09:05:55 CDT CPT-25612 Venipuncture Draw Fee 14:01:33 CDT CPT-73983 EKG Trac and Interp 11:22:04 CDT CPT-28298 Venipuncture Draw Fee 10:53:35 CDT CPT-J2930 Solu Medrol 125 mg (Methyl Prednisolone Sodium Succinate) 09:29:26 CDT CPT-81964 Abx/Therapy Injection 09:29:26 CDT CPT-Cryo Cryotherapy 16:51:37 RETIREMENT OFFICER
--- OUTSIDE RECORDS SUMMARY | 2019-07-22 19:44 | XMS REPORT | Clinical Summary ---
Author Author Yovanny, Clarisa Christopher Organization [facility] Address Unknown Phone Unavailable Allergies, [...] twice daily, for anxiety 2016 BUSPIRONE HCL 47569664614 Active Shannan Gibbs APRN Active PROZAC 20 MG CAP Take 1 tab daily. FLUOXETINE HCL 33055596887 Active Shannan Gibbs APRN Active PROZAC 10 MG CAP Take 1 tab daily for 1 week. Then increa se to 20mg daily. FLUOXETINE HCL 74625344778 Active Shannan Gibbs APRN Active CITALOPRAM HYDROBROMIDE 20 MG ORAL TABS take 1 tab po qday for depresion and anxiety. CITALOPRAM HYDROBROMIDE 25257369123 No L onger Active Shannan Gibbs APRN Active CYANOCOBALAMIN 1000 MCG/ML INJ SOLN 1 injection weekly for 1 month, than 1 a month for 2 months. recheck lab CYANOCOBALAMIN 00424535334 No Longer Active Shannan Gibbs APRN Active ULTRAM 50 MG TAB 1 TAB PO Q 6 HRS PRN HEADACHE TRAMADOL HCL 51860735992 Active Adrián Varghese MD Active ULTRAM 50 MG TAB take 1 tab po q 6 hrs prn headache pain TRAMADOL HCL 99197652945 No Longer Active Adrián Varghese MD Acti ve CLINDAMYCIN PHOSPHATE 2 % CREA apply cream to acne BID prn 06/14 CLINDAMYCIN PHOSPHATE 55313220888 No Longer Active Adrián Joseph Active MINOCYCLINE HCL 100 MG CAPS take one po BID MINOCYCLINE HCL 12045934688 No Longer Active Adrián Varghese MD Acti ve TRI-SPRINTEC 0.18/0.215/0.25 MG-35 MCG TABS 1 po qd as directed 201 07/04/00 NORGESTIM-ETH ESTRAD TRIPHASIC 98968546102 Active Adrián Varghese MD Active ZITHROMAX 250 MG TAB 2 po today, then 1 po q days 2-5 AZITHROMYCIN 14468570523 No Longer Active Adrián Varghese MD Acti ve ZITHROMAX 250 MG TAB 2 po today, then 1 po q days 2-5 AZITHROMYCIN 52343466048 No Longer Active Adrián Varghese MD Acti ve PREDNISONE 20 MG TAB 2 tabs daily for 3 days, 1 t ab daily for 3 days, 1/2 tab daily for 2 days PREDNISONE 07903781443 No Longer Active Adrián Varghese MD Active ZANTAC 75 75 MG TABS take 1 po BID RANITIDINE H CL 82567252239 No Longer Active Uriel BOYD Active BENZACLIN 1-5 % GEL apply to skin BID prn for acne 201 05/05/14 CLINDAMYCIN PHOS-BENZOYL PEROX 28166526850 No Longer Active Uriel BOYD Active BENZACLIN 1-5 % GEL apply to skin BID prn for acne 201 05/05/14 BENZACLIN 1-5 % GEL 845236 CLINDAMYCIN PHOS-BENZOYL PEROX Inactive MINOCYCLINE HCL 100 MG CAPS take one po BID MINOCYCLINE HCL 100 MG CAPS 331916 MINOCYCLINE HCL Inactive CLINDAMYCIN PHOSPHATE 2 % CREA apply cream to acne BID prn 06/14 CLINDAMYCIN PHOSPHATE 2 % CREA 325209 CLINDAMYCIN PHOSP HATE Inactive ULTRAM 50 MG TAB take 1 tab po q 6 hrs prn headache pain ULTRAM 50 MG TAB 297258 TRAMADOL HCL Inactive CYANOCOBALAMIN 1000 MCG/ML INJ SOLN 1 injection weekly for 1 month, than 1 a month for 2 months. recheck lab CYANOCOB ALAMIN 1000 MCG/ML INJ SOLN 251302 CYANOCOBALAMIN Inactive CITALOPRAM HYDROBROMIDE 20 MG ORAL TABS take 1 tab po qday for depresion and anxiety. CITALOPRAM HYDROBROMIDE 20 MG ORAL TABS 2 34301 CITALOPRAM HYDROBROMIDE Inactive ZANTAC 75 75 MG TABS take 1 po BID ZANTAC 75 75 MG TABS 588426 RANITIDINE HCL Inactive PREDNISONE 20 MG TAB 2 tabs daily for 3 days, 1 t ab daily for 3 days, 1/2 tab daily for 2 days PREDNISONE 20 MG TAB 518964 PREDNISON E Inactive ZITHROMAX 250 MG TAB 2 po today, then 1 po q days 2-5 ZITHROMAX 250 MG TAB 312037 AZITHROMYCIN Inactive ZITHROMAX 250 MG TAB 2 po today, then 1 po q days 2-5 ZITHROMAX 250 MG TAB 590187 AZITHROMYCIN Inactive Immunizations Vaccine Administration Date Value [...] - Chem istry sodium, serum 139 mmol/L 853-721 1770/09/06 carbon dioxide, venous blood 25.3 mmol/L 21.0-32 [...] 0.20-1.00 Encounters Code Encounter Date Provider Facility CPT-35783 Level 4 Est. Patient 14:07:40 CDT Hubert WARD [facility] CPT-18957 Level 4 Est. Patient 13:54:09 CDT Adrián dyson MD [facility] CPT-69763 Level 3 Est. Patient 09:22:14 CDT Adrián dyson MD [facility] CPT-98553 Level 3 Est. Patient 08:59:31 CDT Adrián dyson MD [facility] CPT-32669 Level 3 Est. Patient 11:58:31 CDT Adrián dyson MD [facility] CPT-42679 Level 3 Est. Patient 09:06:35 CDT Adrián dyson MD [facility] CPT-87898 Level 3 Est. Patient 09:18:45 CDT Adrián dyson MD [facility] CPT-86363 Level 3 Est. Patient 09:13:22 CDT Adrián dyson MD [facility] CPT-05870 Level 3 Est. Patient 18:04:31 CABLE SWAGER Adrián dyson MD [facility] CPT-98539 Level 4 Est. Patient 14:00:53 CDT Uriel BOYD [facility] CPT-45416 Level 3 Est. Patient 20:00:09 CDT Terry jenkins DO [facility] CPT-36558 Level 3 Est. Patient 08:45:08 CDT Richcristian Ashleyclarissa bhatia [facility] CPT-43696 Level 3 Est. Patient 09:09:[address] [facility] CPT-96832 Level 3 Est. Patient 16:32:31 CDT Adrián dyson MD [facility] CPT-68101 Level 3 Est. Patient 09:35:27 CABLE SWAGER Norman fuentes [facility] CPT-18031 Level 2 Est. Patient 16:51:37 CABLE SWAGER Adrián dyson MD [facility] CPT-76750 Level 3 Est. Patient 10:00:11 CABLE SWAGER Ace Arriaza MD [facility] Procedures Code Procedure Name Date Entry Date Standard Desc ription CPT-69646 First Vx - Ix admin via ID I M or jet injects without counseling by physician 14:18:02 CDT CPT-18286 Gardasil 9 Intramuscular Suspension 1 4:18:02 CDT CPT-J3420 Vitamin B12 1000mcg (Cyanocobalamin) 16:30:23 CDT CPT-78808 Abx/Therapy Injection 16:30:23 CDT CPT-J3420 Vitamin B12 1000mcg (Cyanocobalamin) 16:09:42 CDT CPT-06336 Abx/Therapy Injection 16:09:42 CDT CPT-J3420 Vitamin B12 1000mcg (Cyanocobalamin) 15:22:47 CDT CPT-83561 Abx/Therapy Injection 15:22:47 CDT CPT-J3420 Vitamin B12 1000mcg (Cyanocobalamin) 17:00:35 CDT CPT-22202 Abx/Therapy Injection 17:00:35 CDT CPT-15876 First Vx - Ix admin via ID I M or jet injects without counseling by physician 16:04:17 CABLE SWAGER CPT-15661 Gardasil 9 Intramuscular Suspension 1 6:04:17 CABLE SWAGER CPT-97879 Venipuncture Draw Fee 09:40:26 CDT CPT-50722 [place] [facility] - LAB USE ONLY 09:40:26 CDT 11/30 CPT-39737 CBC with Diff - LAB USE ONLY 09:40:26 CDT 2 CPT-12704 Addl Vx - Ix admin via ID IM or jet injects without counseling by physician 09:40:21 CDT CPT-45180 Menactra Intramuscular Injectable 09:40:21 CDT CPT-89369 Addl Vx - Ix admin via ID IM or jet injects without counseling by physician 09:40:21 CDT CPT-44566 Gardasil 9 Intramuscular Suspension 0 9:40:21 CDT CPT-60535 First Vx - Ix admin via ID I M or jet injects without counseling by physician 09:40:21 CDT CPT-10678 Havrix Intramuscular Suspension 720 EL U /0.5ML 09:40:21 CDT CPT-J2930 Solu Medrol 125 mg (Methyl Prednisolone Sodium Succinate) 09:43:26 CDT CPT-69191 Abx/Therapy Injection 09:43:26 CDT CPT-J2930 Solu Medrol 125 mg (Methyl Prednisolone Sodium Succinate) 09:05:55 CDT CPT-56229 Abx/Therapy Injection 09:05:55 CDT CPT-20681 Venipuncture Draw Fee 14:01:33 CDT CPT-37510 EKG Trac and Interp 11:22:04 CDT CPT-70302 Venipuncture Draw Fee 10:53:35 CDT CPT-J2930 Solu Medrol 125 mg (Methyl Prednisolone Sodium Succinate) 09:29:26 CDT CPT-11530 Abx/Therapy Injection 09:29:26 CDT CPT-Cryo Cryotherapy 16:51:37 CABLE SWAGER
--- OUTSIDE RECORDS SUMMARY | 2019-07-22 19:44 | XMS REPORT | Clinical Summary ---
Author Author Yovanny, Clarisa Christopher Organization [facility] Address Unknown Phone Unavailable Allergies, Adverse [...] increa se to 20mg daily. FLUOXETINE HCL 54339827601 No Longer Active Hubert WARD Active PROZAC 20 MG CAP Take 1 tab daily FLUOXETINE HCL 45874884444 Active Shannan Gibbs APRN Active BUSPIRONE HCL 7.5 MG ORAL TABS 1 pill twice daily, for anxiety 2016 BUSPIRONE HCL 63936584777 Active Shannan Gibbs APRN Active CITALOPRAM HYDROBROMIDE 20 MG ORAL TABS take 1 tab po qday for depresion and anxiety. CITALOPRAM HYDROBROMIDE 12020280774 No L onger Active Shannan Gibbs APRN Active CYANOCOBALAMIN 1000 MCG/ML INJ SOLN 1 injection weekly for 1 month, than 1 a month for 2 months. recheck lab CYANOCOBALAMIN 58544328590 No Longer Active Shannan Gibbs APRN Active ULTRAM 50 MG TAB 1 TAB PO Q 6 HRS PRN HEADACHE TRAMADOL HCL 58708501482 Active Adrián Varghese MD Active ULTRAM 50 MG TAB take 1 tab po q 6 hrs prn headache pain TRAMADOL HCL 35850672758 No Longer Active Adrián Varghese MD Acti ve CLINDAMYCIN PHOSPHATE 2 % CREA apply cream to acne BID prn 06/14 CLINDAMYCIN PHOSPHATE 14861232832 No Longer Active Adrián Joseph Active MINOCYCLINE HCL 100 MG CAPS take one po BID MINOCYCLINE HCL 80579596001 No Longer Active Adrián Varghese MD Acti ve TRI-SPRINTEC 0.18/0.215/0.25 MG-35 MCG TABS 1 po qd as directed 201 07/04/00 NORGESTIM-ETH ESTRAD TRIPHASIC 64415024130 Active Shannan Gibbs APRN Active ZITHROMAX 250 MG TAB 2 po today, then 1 po q days 2-5 AZITHROMYCIN 53660216873 No Longer Active Adrián Varghese MD Acti ve ZITHROMAX 250 MG TAB 2 po today, then 1 po q days 2-5 AZITHROMYCIN 87569687053 No Longer Active Adrián Varghese MD Acti ve PREDNISONE 20 MG TAB 2 tabs daily for 3 days, 1 t ab daily for 3 days, 1/2 tab daily for 2 days PREDNISONE 15089750487 No Longer Active Adrián Varghese MD Active ZANTAC 75 75 MG TABS take 1 po BID RANITIDINE H CL 34885896500 No Longer Active Uriel BOYD Active BENZACLIN 1-5 % GEL apply to skin BID prn for acne 201 05/05/14 CLINDAMYCIN PHOS-BENZOYL PEROX 49428943178 No Longer Active Uriel BOYD Active BENZACLIN 1-5 % GEL apply to skin BID prn for acne 201 05/05/14 BENZACLIN 1-5 % GEL 458676 CLINDAMYCIN PHOS-BENZOYL PEROX Inactive MINOCYCLINE HCL 100 MG CAPS take one po BID MINOCYCLINE HCL 100 MG CAPS 485731 MINOCYCLINE HCL Inactive CLINDAMYCIN PHOSPHATE 2 % CREA apply cream to acne BID prn 06/14 CLINDAMYCIN PHOSPHATE 2 % CREA 768845 CLINDAMYCIN PHOSP HATE Inactive ULTRAM 50 MG TAB take 1 tab po q 6 hrs prn headache pain ULTRAM 50 MG TAB 712882 TRAMADOL HCL Inactive CYANOCOBALAMIN 1000 MCG/ML INJ SOLN 1 injection weekly for 1 month, than 1 a month for 2 months. recheck lab CYANOCOB ALAMIN 1000 MCG/ML INJ SOLN 392605 CYANOCOBALAMIN Inactive CITALOPRAM HYDROBROMIDE 20 MG ORAL TABS take 1 tab po qday for depresion and anxiety. CITALOPRAM HYDROBROMIDE 20 MG ORAL TABS 2 72564 CITALOPRAM HYDROBROMIDE Inactive PROZAC 10 MG CAP Take 1 tab daily for 1 week. Then increa se to 20mg daily. PROZAC 10 MG CAP 047959 FLUOXETINE HCL Inactive ZANTAC 75 75 MG TABS take 1 po BID ZANTAC 75 75 MG TABS 737743 RANITIDINE HCL Inactive PREDNISONE 20 MG TAB 2 tabs daily for 3 days, 1 t ab daily for 3 days, 1/2 tab daily for 2 days PREDNISONE 20 MG TAB 790842 PREDNISON E Inactive ZITHROMAX 250 MG TAB 2 po today, then 1 po q days 2-5 ZITHROMAX 250 MG TAB 050743 AZITHROMYCIN Inactive ZITHROMAX 250 MG TAB 2 po today, then 1 po q days 2-5 ZITHROMAX 250 MG TAB 010794 AZITHROMYCIN Inactive Immunizations Vaccine Administration Date Value [...] Value Unit Range Description Lab Report: Chlamydia/GC APTIMA/57939 - Lab chlamydia DNA probe NOT DETECTED NOT DETECTED Lab Report: Chlamydia/GC [facility]/18991 - Microbiology Neisseria gonorrhoeae DNA probe NOT DETECTED NO T DETECTED Lab Report: Comp. Metabolic Panel - Chem istry sodium, serum 139 mmol/L 601-575 8427/09/06 carbon dioxide, venous blood 25.3 mmol/L 21.0-32 [...] 5.0-8.5 Encounters Code Encounter Date Provider Facility CPT-21692 Level 3 Est. Patient 11:35:37 STAMP PRESS OPERATOR Cale morris [facility]-91726 Level 4 Est. Patient 11:10:55 CDT Hubert [facility]-87137 Level 4 Est. Patient 14:07:40 CDT Hubert [facility]-68453 Level 4 Est. Patient 13:54:09 CDT Adrián dyson MD [facility]-44924 Level 3 Est. Patient 09:22:14 CDT Adrián dyson MD [facility]-85346 Level 3 Est. Patient 08:59:31 CDT Adrián dyson MD [facility]-54811 Level 3 Est. Patient 11:58:31 CDT Adrián dyson MD [facility] CPT-68635 Level 3 Est. Patient 09:06:35 CDT Adrián dyson MD [facility] CPT-71043 Level 3 Est. Patient 09:18:45 CDT Adrián dyson MD [facility] CPT-90714 Level 3 Est. Patient 09:13:22 CDT Adrián dyson MD [facility] CPT-61486 Level 3 Est. Patient 18:04:31 STAMP PRESS OPERATOR Adrián dyson MD [facility] CPT-48338 Level 4 Est. Patient 14:00:53 CDT Uriel bhatia [facility] CPT-07917 Level 3 Est. Patient 20:00:09 CDT Terry jenkins DO [facility] CPT-10009 Level 3 Est. Patient 08:45:08 CDT Uriel bhatia [facility] CPT-30374 Level 3 Est. Patient 09:09:26 CDT Uriel bhatia [facility] CPT-30900 Level 3 Est. Patient 16:32:31 CDT Adrián dyson MD [facility] CPT-05305 Level 3 Est. Patient 09:35:27 STAMP PRESS OPERATOR Norman fuentes [facility] CPT-61653 Level 2 Est. Patient 16:51:37 STAMP PRESS OPERATOR Adrián dyson MD [facility] CPT-34128 Level 3 Est. Patient 10:00:11 STAMP PRESS OPERATOR Ace Arriaza MD [facility] Procedures Code Procedure Name Date Entry Date Standard Desc ription CPT-06431 First Vx - Ix admin via ID I M or jet injects without counseling by physician 14:18:02 CDT CPT-63478 Gardasil 9 Intramuscular Suspension 1 4:18:02 CDT CPT-J3420 Vitamin B12 1000mcg (Cyanocobalamin) 16:30:23 CDT CPT-74635 Abx/Therapy Injection 16:30:23 CDT CPT-J3420 Vitamin B12 1000mcg (Cyanocobalamin) 16:09:42 CDT CPT-02270 Abx/Therapy Injection 16:09:42 CDT CPT-J3420 Vitamin B12 1000mcg (Cyanocobalamin) 15:22:47 CDT CPT-18327 Abx/Therapy Injection 15:22:47 CDT CPT-J3420 Vitamin B12 1000mcg (Cyanocobalamin) 17:00:35 CDT CPT-96703 Abx/Therapy Injection 17:00:35 CDT CPT-43622 First Vx - Ix admin via ID I M or jet injects without counseling by physician 16:04:17 STAMP PRESS OPERATOR CPT-52585 Gardasil 9 Intramuscular Suspension 1 6:04:17 STAMP PRESS OPERATOR CPT-41408 Venipuncture Draw Fee 09:40:26 CDT CPT-86310 [place] [facility] - LAB USE ONLY 09:40:26 CDT 11/30 CPT-49624 CBC with Diff - LAB USE ONLY 09:40:26 CDT 2 CPT-81123 Addl Vx - Ix admin via ID IM or jet injects without counseling by physician 09:40:21 CDT CPT-45276 Menactra Intramuscular Injectable 09:40:21 CDT CPT-70190 Addl Vx - Ix admin via ID IM or jet injects without counseling by physician 09:40:21 CDT CPT-60454 Gardasil 9 Intramuscular Suspension 0 9:40:21 CDT CPT-29903 First Vx - Ix admin via ID I M or jet injects without counseling by physician 09:40:21 CDT CPT-85965 Havrix Intramuscular Suspension 720 EL U /0.5ML 09:40:21 CDT CPT-J2930 Solu Medrol 125 mg (Methyl Prednisolone Sodium Succinate) 09:43:26 CDT CPT-43879 Abx/Therapy Injection 09:43:26 CDT CPT-J2930 Solu Medrol 125 mg (Methyl Prednisolone Sodium Succinate) 09:05:55 CDT CPT-23876 Abx/Therapy Injection 09:05:55 CDT CPT-47989 Venipuncture Draw Fee 14:01:33 CDT CPT-51798 EKG Trac and Interp 11:22:04 CDT CPT-59056 Venipuncture Draw Fee 10:53:35 CDT CPT-J2930 Solu Medrol 125 mg (Methyl Prednisolone Sodium Succinate) 09:29:26 CDT CPT-78932 Abx/Therapy Injection 09:29:26 CDT CPT-Cryo Cryotherapy 16:51:37 STAMP PRESS OPERATOR
--- OUTSIDE RECORDS SUMMARY | 2019-07-22 19:45 | XMS REPORT | Clinical Summary ---
Author Author Yovanny, Clarisa Christopher Organization [facility] Address Unknown Phone Unavailable Allergies, Adverse [...] Instructions Start Date Stop Date Generic Name [facility] Status Provider Patient Instruction CLINDAMYCIN PHOSPHATE 2 % CREA apply cream to acne BID prn 06/14 CLINDAMYCIN PHOSPHATE 13592015638 No Longer Active Adrián Joseph Active MINOCYCLINE HCL 100 MG CAPS take one po BID MINOCYCLINE HCL 83634504594 No Longer Active Adrián Varghese MD Acti ve TRI-SPRINTEC 0.18/0.215/0.25 MG-35 MCG TABS 1 po qd as directed 201 07/04/00 NORGESTIM-ETH ESTRAD TRIPHASIC 96272735774 Active Adrián Varghese MD Active ZITHROMAX 250 MG TAB 2 po today, then 1 po q days 2-5 AZITHROMYCIN 21229530880 No Longer Active Adrián Varghese MD Acti ve ULTRAM 50 MG TAB take 1 tab po q 6 hrs prn headache pain TRAMADOL HCL 34941486605 Active Adrián Varghese MD Active ZITHROMAX 250 MG TAB 2 po today, then 1 po q days 2-5 AZITHROMYCIN 05918613102 No Longer Active Adrián Varghese MD Acti ve PREDNISONE 20 MG TAB 2 tabs daily for 3 days, 1 t ab daily for 3 days, 1/2 tab daily for 2 days PREDNISONE 93633923892 No Longer Active Adrián Varghese MD Active ZANTAC 75 75 MG TABS take 1 po BID RANITIDINE H CL 00928695278 No Longer Active Uriel BOYD Active BENZACLIN 1-5 % GEL apply to skin BID prn for acne 201 05/05/14 CLINDAMYCIN PHOS-BENZOYL PEROX 47522297235 No Longer Active Uriel BOYD Active BENZACLIN 1-5 % GEL apply to skin BID prn for acne 201 05/05/14 BENZACLIN 1-5 % GEL 729862 CLINDAMYCIN PHOS-BENZOYL PEROX Inactive MINOCYCLINE HCL 100 MG CAPS take one po BID MINOCYCLINE HCL 100 MG CAPS 016647 MINOCYCLINE HCL Inactive CLINDAMYCIN PHOSPHATE 2 % CREA apply cream to acne BID prn 06/14 CLINDAMYCIN PHOSPHATE 2 % CREA 128820 CLINDAMYCIN PHOSP HATE Inactive ZANTAC 75 75 MG TABS take 1 po BID ZANTAC 75 75 MG TABS 488414 RANITIDINE HCL Inactive PREDNISONE 20 MG TAB 2 tabs daily for 3 days, 1 t ab daily for 3 days, 1/2 tab daily for 2 days PREDNISONE 20 MG TAB 347747 PREDNISON E Inactive ZITHROMAX 250 MG TAB 2 po today, then 1 po q days 2-5 ZITHROMAX 250 MG TAB 7599220 AZITHROMYCIN Inactive ZITHROMAX 250 MG TAB 2 po today, then 1 po q days 2-5 ZITHROMAX 250 MG TAB 0633274 AZITHROMYCIN Inactive Immunizations Vaccine Administration Date Value [...] Measured Encounters Code Encounter Date Provider Facility CPT-80992 Level 3 Est. Patient 08:59:31 CDT Adrián dyson MD [facility] CPT-27482 Level 3 Est. Patient 11:58:31 CDT Adrián dyson MD [facility] CPT-70387 Level 3 Est. Patient 09:06:35 CDT Adrián dyson MD [facility] CPT-18898 Level 3 Est. Patient 09:18:45 CDT Adrián dyson MD [facility] CPT-46519 Level 3 Est. Patient 09:13:22 CDT Adrián dyson MD [facility] CPT-84505 Level 3 Est. Patient 18:04:31 DIRECTOR OF CASINO Adrián dyson MD [facility] CPT-02588 Level 4 Est. Patient 14:00:53 CDT Uriel bhatia [facility] CPT-96280 Level 3 Est. Patient 20:00:09 CDT Terry jenkins DO [facility] CPT-72369 Level 3 Est. Patient 08:45:08 CDT Uriel Ramirezclarissa bhatia [facility] CPT-82032 Level 3 Est. Patient 09:09:26 CDT Richcristian Ashleyclarissa bhatia [facility] CPT-27709 Level 3 Est. Patient 16:32:31 CDT Adrián dyson MD [facility] CPT-50546 Level 3 Est. Patient 09:35:27 DIRECTOR OF CASINO Norman fuentes [facility] CPT-47653 Level 2 Est. Patient 16:51:37 DIRECTOR OF CASINO Adrián dyson MD [facility] CPT-27270 Level 3 Est. Patient 10:00:11 DIRECTOR OF CASINO Ace Arriaza MD [facility] Procedures Code Procedure Name Date Entry Date Standard Desc ription CPT-15356 Addl Vx - Ix admin via ID IM or jet injects without counseling by physician 09:40:21 CDT CPT-30104 Menactra Intramuscular Injectable 09:40:21 CDT CPT-87253 Addl Vx - Ix admin via ID IM or jet injects without counseling by physician 09:40:21 CDT CPT-85577 Gardasil 9 Intramuscular Suspension 0 9:40:21 CDT CPT-82758 First Vx - Ix admin via ID I M or jet injects without counseling by physician 09:40:21 CDT CPT-33647 Havrix Intramuscular Suspension 720 EL U /0.5ML 09:40:21 CDT CPT-J2930 Solu Medrol 125 mg (Methyl Prednisolone Sodium Succinate) 09:43:26 CDT CPT-41856 Abx/Therapy Injection 09:43:26 CDT CPT-J2930 Solu Medrol 125 mg (Methyl Prednisolone Sodium Succinate) 09:05:55 CDT CPT-63662 Abx/Therapy Injection 09:05:55 CDT CPT-77776 Venipuncture Draw Fee 14:01:33 CDT CPT-25273 EKG Trac and Interp 11:22:04 CDT CPT-30396 Venipuncture Draw Fee 10:53:35 CDT CPT-J2930 Solu Medrol 125 mg (Methyl Prednisolone Sodium Succinate) 09:29:26 CDT CPT-98205 Abx/Therapy Injection 09:29:26 CDT CPT-Cryo Cryotherapy 16:51:37 DIRECTOR OF CASINO
--- OUTSIDE RECORDS SUMMARY | 2019-07-22 19:45 | XMS REPORT | Clinical Summary ---
Author Author Yovanny, Clarisa Christopher Organization [facility] Address Unknown Phone Unavailable Allergies, Adverse [...] Then increase to 20mg daily. FLUOXETINE HCL 10425945515 No Longer Active Yulissa Gibbs APRN Active PROZAC 20 MG ORAL CAPSULE Take 1 tab daily FLUO XETINE HCL 09722673678 Active Shannan Gibbs APRN Active BUSPIRONE HCL 7.5 MG ORAL TABLET 1 pill twice daily, for anxiety 20 14/11/05 BUSPIRONE HCL 83034150321 Active Shannan Gibbs APRN Active CITALOPRAM HYDROBROMIDE 20 MG ORAL TABLET take 1 tab p o qday for depresion and anxiety. CITALOPRAM HYDROBROMIDE 35086343989 No L onger Active Shannan Gibbs APRN Active CYANOCOBALAMIN 1000 MCG/ML INJECTION SOLUTION 1 inject ion weekly for 1 month, than 1 a month for 2 months. recheck lab CYANOCO BALAMIN 16458671708 No Longer Active Shannan Gibbs APRN Active ULTRAM 50 MG ORAL TABLET 1 TAB PO Q 6 HRS PRN HEADACHE TRAMADOL HCL 40464692297 Active Adrián Varghese MD Active ULTRAM 50 MG ORAL TABLET take 1 tab po q 6 hrs prn headache pain TRAMADOL HCL 38165424733 No Longer Active Adrián Varghese MD Active CLINDAMYCIN PHOSPHATE 2 % VAGINAL CREAM apply cream to acne BID prn CLINDAMYCIN PHOSPHATE 42011038914 No Longer Active Adrián dyson MD Active MINOCYCLINE HCL 100 MG ORAL CAPSULE take one po BID 20 13/11/25 MINOCYCLINE HCL 39399913765 No Longer Active Adrián Varghese MD A ctive TRI-SPRINTEC 0.18/0.215/0.25 MG-35 MCG ORAL TABLET 1 po qd a s directed NORGESTIM-ETH ESTRAD TRIPHASIC 53523660314 Active Adrián Varghese MD Active ZITHROMAX 250 MG ORAL TABLET 2 po today, then 1 po q days 2-5 20 12/07/06 AZITHROMYCIN 94142794114 No Longer Active Adrián Varghese MD Active ZITHROMAX 250 MG ORAL TABLET 2 po today, then 1 po q days 2-5 20 11/06/16 AZITHROMYCIN 08120651394 No Longer Active Adrián Varghese MD Active PREDNISONE 20 MG ORAL TABLET 2 tabs daily for 3 days, 1 tab daily for 3 days, 1/2 tab daily for 2 days PREDNISONE 04045780389 No Longer Active Adrián Varghese MD Active ZANTAC 75 75 MG ORAL TABLET take 1 po BID RANIT IDINE HCL 53389405115 No Longer Active Uriel BOYD Active BENZACLIN 1-5 % EXTERNAL GEL apply to skin BID prn for acne 2012 CLINDAMYCIN PHOS-BENZOYL PEROX 64149988446 No Longer Active Uriel BOYD Active BENZACLIN 1-5 % EXTERNAL GEL apply to skin BID prn for acne 2012 BENZACLIN 1-5 % EXTERNAL GEL 509915 CLINDAMYCIN PHOS-BE NZOYL PEROX Inactive MINOCYCLINE HCL 100 MG ORAL CAPSULE take one po BID 13/11/25 MINOCYCLINE HCL 100 MG ORAL CAPSULE 812093 MINOCYCLINE HCL Inac tive CLINDAMYCIN PHOSPHATE 2 % VAGINAL CREAM apply cream to acne BID prn CLINDAMYCIN PHOSPHATE 2 % VAGINAL CREAM 912570 CLINDAMY ANGELIA PHOSPHATE Inactive ULTRAM 50 MG ORAL TABLET take 1 tab po q 6 hrs prn headache pain ULTRAM 50 MG ORAL TABLET 365039 TRAMADOL HCL Inactiv e CYANOCOBALAMIN 1000 MCG/ML INJECTION SOLUTION 1 inject ion weekly for 1 month, than 1 a month for 2 months. recheck lab CYANOCOBALAMIN 1000 MCG/ML INJECTION SOLUTION 121026 CYANOCOBALAMIN Inactive CITALOPRAM HYDROBROMIDE 20 MG ORAL TABLET take 1 tab p o qday for depresion and anxiety. CITALOPRAM HYDROBROMIDE 20 MG ORAL TABLET 769944 CITALOPRAM HYDROBROMIDE Inactive PROZAC 10 MG ORAL CAPSULE Take 1 tab daily for 1 week. Then increase to 20mg daily. PROZAC 10 MG ORAL CAPSULE 124374 FLUOXETINE HCL Inactive ZANTAC 75 75 MG ORAL TABLET take 1 po BID ZANTAC 75 75 MG ORAL TABLET 385352 RANITIDINE HCL Inactive PREDNISONE 20 MG ORAL TABLET 2 tabs daily for 3 days, 1 tab daily for 3 days, 1/2 tab daily for 2 days PREDNISONE 20 MG ORAL T ABLET 320836 PREDNISONE Inactive ZITHROMAX 250 MG ORAL TABLET 2 po today, then 1 po q days 2-5 20 11/06/16 ZITHROMAX 250 MG ORAL TABLET 202811 AZITHROMYCIN [place] ZITHROMAX 250 MG ORAL TABLET 2 po today, then 1 po q days 2-5 20 12/07/06 ZITHROMAX 250 MG ORAL TABLET 166854 AZITHROMYCIN [place] ctive Immunizations Vaccine Administration Date [...] Value Unit Range Description Lab Report: Chlamydia/GC APTIMA/[id number] - Lab chlamydia DNA probe NOT DETECTED NOT DETECTED Lab Report: Chlamydia/GC [facility]TIMA/03635 - Microbiology Neisseria gonorrhoeae DNA probe NOT DETECTED NO T DETECTED Lab Report: Comp. Metabolic Panel - Chem istry sodium, serum 141 mmol/L [phone]/11/22 carbon dioxide, venous blood 25.2 mmol/L 21.0-32 .0 potassium, serum 3.8 mmol/L 3.5-5.2 chloride, serum 104 mmol/L 98-107 blood glucose 95 mg/dL 65-110 urea nitrogen, blood 15 mg/dL 7-18 creatinine, serum 0.79 mg/dL 0.60-1.30 alanine aminotransferase (SGPT), serum 28 U/L 10-55 aspartate aminotransferase (SGOT), serum 17 U/L 15-45 calcium, serum 8.9 mg/dL 8.5-10.1 bilirubin, serum, total 0.30 mg/dL 0.20-1.00 sodium, serum 139 mmol/L 551-466 4255/09/06 carbon dioxide, venous blood 25.3 mmol/L 21.0-32 [...] 5.0-8.5 Encounters Code Encounter Date Provider Facility [facility]-34535 Level 3 Est. Patient 10:07:39 EDIPHONE OPERATOR Cale morris [facility]93321 Level 3 Est. Patient 11:35:37 EDIPHONE OPERATOR Cale morris [facility]-09783 Level 4 Est. Patient 11:10:55 CDT Shannan Lazcano [facility]-63239 Level 4 Est. Patient 14:07:40 CDT [facility]-01246 Level 4 Est. Patient 13:54:09 CDT Adrián dyson MD [facility]18225 Level 3 Est. Patient 09:22:14 CDT Adrián dyson MD [facility]99475 Level 3 Est. Patient 08:59:31 CDT Adrián dyson MD [facility]24334 Level 3 Est. Patient 11:58:31 CDT Adrián dyson MD [facility]-72885 Level 3 Est. Patient 09:06:35 CDT Adrián dyson MD [facility]-83509 Level 3 Est. Patient 09:18:45 CDT Adrián dyson MD [facility]-32965 Level 3 Est. Patient 09:13:22 CDT Adrián dyson MD [facility]-33154 Level 3 Est. Patient 18:04:31 EDIPHONE OPERATOR Adrián dyson MD [facility]-08876 Level 4 Est. Patient 14:00:53 CDT Uriel bhatia [facility] CPT-66657 Level 3 Est. Patient 20:00:09 CDT Terry Elisha Sachin jenkins DO [facility] CPT-82943 Level 3 Est. Patient 08:45:08 CDT Uriel bhatia [facility] CPT-38931 Level 3 Est. Patient 09:09:26 CDT Uriel bhatia [facility] CPT-02435 Level 3 Est. Patient 16:32:31 CDT Adrián dyson MD [facility] CPT-82564 Level 3 Est. Patient 09:35:27 EDIPHONE OPERATOR Norman fuentes [facility] CPT-75924 Level 2 Est. Patient 16:51:37 EDIPHONE OPERATOR Adrián dyson MD [facility] CPT-38682 Level 3 Est. Patient 10:00:11 EDIPHONE OPERATOR Ace Arriaza MD [facility] Procedures Code Procedure Name Date Entry Date Standard Desc ription CPT-44143 First Vx - Ix admin via ID I M or jet injects without counseling by physician 14:18:02 CDT CPT-14275 Gardasil 9 Intramuscular Suspension 1 4:18:02 CDT CPT-J3420 Vitamin B12 1000mcg (Cyanocobalamin) 16:30:23 CDT CPT-39905 Abx/Therapy Injection 16:30:23 CDT CPT-J3420 Vitamin B12 1000mcg (Cyanocobalamin) 16:09:42 CDT CPT-85627 Abx/Therapy Injection 16:09:42 CDT CPT-J3420 Vitamin B12 1000mcg (Cyanocobalamin) 15:22:47 CDT CPT-80918 Abx/Therapy Injection 15:22:47 CDT CPT-J3420 Vitamin B12 1000mcg (Cyanocobalamin) 17:00:35 CDT CPT-31768 Abx/Therapy Injection 17:00:35 CDT CPT-79126 First Vx - Ix admin via ID I M or jet injects without counseling by physician 16:04:17 EDIPHONE OPERATOR CPT-83631 Gardasil 9 Intramuscular Suspension 1 6:04:17 EDIPHONE OPERATOR CPT-28049 Venipuncture Draw Fee 09:40:26 CDT CPT-41678 [place] [facility] - LAB USE ONLY 09:40:26 CDT 11/30 CPT-50482 CBC with Diff - LAB USE ONLY 09:40:26 CDT 2 CPT-77757 Addl Vx - Ix admin via ID IM or jet injects without counseling by physician 09:40:21 CDT CPT-70312 Menactra Intramuscular Injectable 09:40:21 CDT CPT-03927 Addl Vx - Ix admin via ID IM or jet injects without counseling by physician 09:40:21 CDT CPT-73561 Gardasil 9 Intramuscular Suspension 0 9:40:21 CDT CPT-54277 First Vx - Ix admin via ID I M or jet injects without counseling by physician 09:40:21 CDT CPT-70403 Havrix Intramuscular Suspension 720 EL U /0.5ML 09:40:21 CDT CPT-J2930 Solu Medrol 125 mg (Methyl Prednisolone Sodium Succinate) 09:43:26 CDT CPT-52425 Abx/Therapy Injection 09:43:26 CDT CPT-J2930 Solu Medrol 125 mg (Methyl Prednisolone Sodium Succinate) 09:05:55 CDT CPT-88280 Abx/Therapy Injection 09:05:55 CDT CPT-96306 Venipuncture Draw Fee 14:01:33 CDT CPT-67288 EKG Trac and Interp 11:22:04 CDT CPT-73919 Venipuncture Draw Fee 10:53:35 CDT CPT-J2930 Solu Medrol 125 mg (Methyl Prednisolone Sodium Succinate) 09:29:26 CDT CPT-38940 Abx/Therapy Injection 09:29:26 CDT CPT-Cryo Cryotherapy 16:51:37 EDIPHONE OPERATOR
--- OUTSIDE RECORDS SUMMARY | 2019-07-22 19:45 | XMS REPORT | Clinical Summary ---
Author Author Yovanny, Clarisa Christopher Organization [facility] Address Unknown Phone Unavailable Allergies, [...] elsewhere classified B12 deficiency 266.2 Active Samreen Critso Other B-complex deficiencies Pharyngitis-Acute ICD-462 Inactive Adrián leavitt MD Medication List Medication Instructions Start Date Stop Date Generic Name ND Status Provider Patient Instruction CYANOCOBALAMIN 1000 MCG/ML INJ SOLN 1 injection weekly for 1 month, than 1 a month for 2 months. recheck lab CYANOCOBALAMIN 42958676629 Active Samreenjamal Lemons Active CITALOPRAM HYDROBROMIDE 20 MG ORAL TABS take 1 tab po qday for depresion and anxiety. CITALOPRAM HYDROBROMIDE 11054079841 Active Adrián Varghese MD Active ULTRAM 50 MG TAB take 1 tab po q 6 hrs prn headache pain TRAMADOL HCL 85303671398 No Longer Active Adrián Varghese MD Acti ve CLINDAMYCIN PHOSPHATE 2 % CREA apply cream to acne BID prn 06/14 CLINDAMYCIN PHOSPHATE 36589404756 No Longer Active Adrián Joseph Active MINOCYCLINE HCL 100 MG CAPS take one po BID MINOCYCLINE HCL 78017551407 No Longer Active Adrián Varghese MD Acti ve TRI-SPRINTEC 0.18/0.215/0.25 MG-35 MCG TABS 1 po qd as directed 201 07/04/00 NORGESTIM-ETH ESTRAD TRIPHASIC 61153799874 Active Adrián Varghese MD Active ZITHROMAX 250 MG TAB 2 po today, then 1 po q days 2-5 AZITHROMYCIN 72238729231 No Longer Active Adrián Varghese MD Acti ve ZITHROMAX 250 MG TAB 2 po today, then 1 po q days 2-5 AZITHROMYCIN 59608485357 No Longer Active Adrián Varghese MD Acti ve PREDNISONE 20 MG TAB 2 tabs daily for 3 days, 1 t ab daily for 3 days, 1/2 tab daily for 2 days PREDNISONE 80268388708 No Longer Active Adrián Varghese MD Active ZANTAC 75 75 MG TABS take 1 po BID RANITIDINE H CL 72395742836 No Longer Active Uriel BOYD Active BENZACLIN 1-5 % GEL apply to skin BID prn for acne 201 05/05/14 CLINDAMYCIN PHOS-BENZOYL PEROX 24275408995 No Longer Active Uriel BOYD Active BENZACLIN 1-5 % GEL apply to skin BID prn for acne 201 05/05/14 BENZACLIN 1-5 % GEL 279790 CLINDAMYCIN PHOS-BENZOYL PEROX Inactive MINOCYCLINE HCL 100 MG CAPS take one po BID MINOCYCLINE HCL 100 MG CAPS 190713 MINOCYCLINE HCL Inactive CLINDAMYCIN PHOSPHATE 2 % CREA apply cream to acne BID prn 06/14 CLINDAMYCIN PHOSPHATE 2 % CREA 560808 CLINDAMYCIN PHOSP HATE Inactive ULTRAM 50 MG TAB take 1 tab po q 6 hrs prn headache pain ULTRAM 50 MG TAB 001192 TRAMADOL HCL Inactive ZANTAC 75 75 MG TABS take 1 po BID ZANTAC 75 75 MG TABS 465167 RANITIDINE HCL Inactive PREDNISONE 20 MG TAB 2 tabs daily for 3 days, 1 t ab daily for 3 days, 1/2 tab daily for 2 days PREDNISONE 20 MG TAB 689973 PREDNISON E Inactive ZITHROMAX 250 MG TAB 2 po today, then 1 po q days 2-5 ZITHROMAX 250 MG TAB 1451916 AZITHROMYCIN Inactive ZITHROMAX 250 MG TAB 2 po today, then 1 po q days 2-5 ZITHROMAX 250 MG TAB 8271553 AZITHROMYCIN Inactive Immunizations Vaccine Administration Date Value [...] [phone] Encounters Code Encounter Date Provider Facility CPT-11862 Level 4 Est. Patient 13:54:09 CDT Adrián dyson MD [facility] CPT-19371 Level 3 Est. Patient 09:22:14 CDT Adrián dyson MD [facility]-41263 Level 3 Est. Patient 08:59:31 CDT Adrián dyson MD [facility]-29268 Level 3 Est. Patient 11:58:31 CDT Adrián dyson MD [facility] CPT-48777 Level 3 Est. Patient 09:06:35 CDT Adrián dyson MD [facility] CPT-00762 Level 3 Est. Patient 09:18:45 CDT Adrián dyson MD [facility] CPT-74144 Level 3 Est. Patient 09:13:22 CDT Adrián dyson MD [facility] CPT-19457 Level 3 Est. Patient 18:04:31 CIRCUS RIDER Adrián dyson MD [facility] CPT-57484 Level 4 Est. Patient 14:00:53 CDT Uriel bhatia [facility] CPT-50837 Level 3 Est. Patient 20:00:09 CDT Terry jenkins DO [facility]-21636 Level 3 Est. Patient 08:45:08 CDT Uriel bhatia [facility] CPT-74763 Level 3 Est. Patient 09:09:26 CDT Uriel bhatia [facility]-27671 Level 3 Est. Patient 16:32:31 CDT Adrián dyson MD [facility] CPT-99730 Level 3 Est. Patient 09:35:27 CIRCUS RIDER Norman BOYD [facility] CPT-96112 Level 2 Est. Patient 16:51:37 CIRCUS RIDER Adrián dyson MD [facility] CPT-07113 Level 3 Est. Patient 10:00:11 CIRCUS RIDER Ace Arriaza MD [facility] Procedures Code Procedure Name Date Entry Date Standard Desc ription CPT-63753 First Vx - Ix admin via ID I M or jet injects without counseling by physician 16:04:17 CIRCUS RIDER CPT-69802 Gardasil 9 Intramuscular Suspension 1 6:04:17 CIRCUS RIDER CPT-19162 Venipuncture Draw Fee 09:40:26 CDT CPT-18744 [facility] - LAB USE ONLY 09:40:26 CDT 11/30 CPT-67730 CBC with Diff - LAB USE ONLY 09:40:26 CDT 2 CPT-53007 Addl Vx - Ix admin via ID IM or jet injects without counseling by physician 09:40:21 CDT CPT-15688 Menactra Intramuscular Injectable 09:40:21 CDT CPT-52867 Addl Vx - Ix admin via ID IM or jet injects without counseling by physician 09:40:21 CDT CPT-91167 Gardasil 9 Intramuscular Suspension 0 9:40:21 CDT CPT-78901 First Vx - Ix admin via ID I M or jet injects without counseling by physician 09:40:21 CDT CPT-96558 Havrix Intramuscular Suspension 720 EL U /0.5ML 09:40:21 CDT CPT-J2930 Solu Medrol 125 mg (Methyl Prednisolone Sodium Succinate) 09:43:26 CDT CPT-84948 Abx/Therapy Injection 09:43:26 CDT CPT-J2930 Solu Medrol 125 mg (Methyl Prednisolone Sodium Succinate) 09:05:55 CDT CPT-52259 Abx/Therapy Injection 09:05:55 CDT CPT-62690 Venipuncture Draw Fee 14:01:33 CDT CPT-28522 EKG Trac and Interp 11:22:04 CDT CPT-93920 Venipuncture Draw Fee 10:53:35 CDT CPT-J2930 Solu Medrol 125 mg (Methyl Prednisolone Sodium Succinate) 09:29:26 CDT CPT-15853 Abx/Therapy Injection 09:29:26 CDT CPT-Cryo Cryotherapy 16:51:37 CIRCUS RIDER
--- OUTSIDE RECORDS SUMMARY | 2019-07-22 19:45 | XMS REPORT | Clinical Summary ---
[...] of lymph nodes CHEST DISCOMFORT 786.59 Active Uirel BOYD Other chest pain Pharyngitis-Acute 462 Inactive [...] 1 TABLET BY MOUTH DAILY DIRECTED SULFAMETHOXAZOLE-TRIMETHOPRIM 97793932991 No Longer Active Madelin Hatch MD Active BUSPIRONE HCL 7.5 MG ORAL TABLET PRN BUSPIR ONE HCL 86741796598 Active Madelin Hatch MD Active PROZAC 20 MG ORAL CAPSULE PRN FLUOXETINE HCL 0077 1490591 Active Madelin Hatch MD Active ABSORICA 20 MG ORAL CAPSULE 1 tablet daily ISOT RETINOIN 15125260429 Active Madelin Hatch MD Active ACZONE 5 % EXTERNAL GEL apply once daily to face 5 DAPSONE 47968983927 No Longer Active Madelin Hatch MD Active PROZAC 10 MG ORAL CAPSULE Take 1 tab daily for 1 week. Then increase to 20mg daily. FLUOXETINE HCL 86841805345 No Longer Active Yulissa an Joeyll RN ELIGIBILITY Active CITALOPRAM HYDROBROMIDE 20 MG ORAL TABLET take 1 tab p o qday for depresion and anxiety. CITALOPRAM HYDROBROMIDE 40204804303 No L onger Active Shannan Evans RN ELIGIBILITY Active CYANOCOBALAMIN 1000 MCG/ML INJECTION SOLUTION 1 inject ion weekly for 1 month, than 1 a month for 2 months. recheck lab CYANOCO BALAMIN 87638424453 No Longer Active Shannan Evans APRN Active ULTRAM 50 MG ORAL TABLET 1 TAB PO Q 6 HRS PRN HEADACHE TRAMADOL HCL 19570614982 Active Adrián Varghese MD Active ULTRAM 50 MG ORAL TABLET take 1 tab po q 6 hrs prn headache pain TRAMADOL HCL 85475314379 No Longer Active Adrián Varghese MD Active CLINDAMYCIN PHOSPHATE 2 % VAGINAL CREAM apply cream to acne BID prn CLINDAMYCIN PHOSPHATE 95584352773 No Longer Active Adrián dyson MD Active MINOCYCLINE HCL 100 MG ORAL CAPSULE take one po BID 20 13/11/25 MINOCYCLINE HCL 07968555704 No Longer Active Adrián Varghese MD A ctive TRI-SPRINTEC 0.18/0.215/0.25 MG-35 MCG ORAL TABLET 1 po qd a s directed NORGESTIM-ETH ESTRAD TRIPHASIC 35390007071 Active Madelin Hatch MD Active ZITHROMAX 250 MG ORAL TABLET 2 po today, then 1 po q days 2-5 20 12/07/06 AZITHROMYCIN 36057763246 No Longer Active Adrián Varghese MD Active ZITHROMAX 250 MG ORAL TABLET 2 po today, then 1 po q days 2-5 20 11/06/16 AZITHROMYCIN 12412186910 No Longer Active Adrián Varghese MD Active PREDNISONE 20 MG ORAL TABLET 2 tabs daily for 3 days, 1 tab daily for 3 days, 1/2 tab daily for 2 days PREDNISONE 71232035222 No Longer Active Adrián Varghese MD Active ZANTAC 75 75 MG ORAL TABLET take 1 po BID RANIT IDINE HCL 25888848984 No Longer Active Uriel BOYD Active BENZACLIN 1-5 % EXTERNAL GEL apply to skin BID prn for acne 2012 CLINDAMYCIN PHOS-BENZOYL PEROX 16205221013 No Longer Active Uriel BOYD Active BENZACLIN 1-5 % EXTERNAL GEL apply to skin BID prn for acne 2012 BENZACLIN 1-5 % EXTERNAL GEL 659196 CLINDAMYCIN PHOS-BE NZOYL PEROX Inactive MINOCYCLINE HCL 100 MG ORAL CAPSULE take one po BID 13/11/25 MINOCYCLINE HCL 100 MG ORAL CAPSULE 822963 MINOCYCLINE HCL Inac tive CLINDAMYCIN PHOSPHATE 2 % VAGINAL CREAM apply cream to acne BID prn CLINDAMYCIN PHOSPHATE 2 % VAGINAL CREAM 331039 CLINDAMY ANGELIA PHOSPHATE Inactive ULTRAM 50 MG ORAL TABLET take 1 tab po q 6 hrs prn headache pain ULTRAM 50 MG ORAL TABLET 988626 TRAMADOL HCL Inactiv e CYANOCOBALAMIN 1000 MCG/ML INJECTION SOLUTION 1 inject ion weekly for 1 month, than 1 a month for 2 months. recheck lab CYANOCOBALAMIN 1000 MCG/ML INJECTION SOLUTION 196792 CYANOCOBALAMIN Inactive CITALOPRAM HYDROBROMIDE 20 MG ORAL TABLET take 1 tab p o qday for depresion and anxiety. CITALOPRAM HYDROBROMIDE 20 MG ORAL TABLET 555272 CITALOPRAM HYDROBROMIDE Inactive PROZAC 10 MG ORAL CAPSULE Take 1 tab daily for 1 week. Then increase to 20mg daily. PROZAC 10 MG ORAL CAPSULE 744344 FLUOXETINE HCL Inactive ACZONE 5 % EXTERNAL GEL apply once daily to face 07/22 ACZONE 5 % EXTERNAL GEL 711719 DAPSONE Inactive SULFAMETHOXAZOLE-TRIMETHOPRIM 800-160 MG ORAL TABLET T QUINCY 1 TABLET BY MOUTH DAILY DIRECTED SULFAMETHOXAZOLE-TRI METHOPRIM 800-160 MG ORAL TABLET 466682 SULFAMETHOXAZOLE-TRIMETHOPRIM Inactive ZANTAC 75 75 MG ORAL TABLET take 1 po BID ZANTAC 75 75 MG ORAL TABLET 007389 RANITIDINE HCL Inactive PREDNISONE 20 MG ORAL TABLET 2 tabs daily for 3 days, 1 tab daily for 3 days, 1/2 tab daily for 2 days PREDNISONE 20 MG ORAL T ABLET 974422 PREDNISONE Inactive ZITHROMAX 250 MG ORAL TABLET 2 po today, then 1 po q days 2-5 20 11/06/16 ZITHROMAX 250 MG ORAL TABLET 072817 AZITHROMYCIN [place] [facility] ZITHROMAX 250 MG ORAL TABLET 2 po today, then 1 po q days 2-5 20 12/07/06 ZITHROMAX 250 MG ORAL TABLET 725557 AZITHROMYCIN [place] ct[facility] Immunizations Vaccine Administration Date [...] Value Unit Range Description Lab Report: Chlamydia/GC APTIMA/35305 - Lab chlamydia DNA probe NOT DETECTED NOT DETECTED chlamydia DNA probe NOT DETECTED NOT DETECTED Lab Report: Chlamydia/GC APTIMA/05043 - Microbiology Neisseria gonorrhoeae DNA probe NOT DETECTED NO T DETECTED Neisseria gonorrhoeae DNA probe NOT DETECTED NO T DETECTED Lab Report: Comp. Metabolic Panel - Chem istry urea nitrogen, blood 15 mg/dL 7-18 creatinine, serum 0.79 mg/dL 0.60-1.30 alanine aminotransferase (SGPT), serum 28 U/L 10-55 aspartate aminotransferase (SGOT), serum 17 U/L 15-45 calcium, serum 8.9 mg/dL 8.5-10.1 bilirubin, serum, total 0.30 mg/dL 0.20-1.00 blood glucose 95 mg/dL 65-110 sodium, serum 141 mmol/L 366-001 6303/11/22 carbon dioxide, venous blood 25.2 mmol/L 21.0-32 .0 potassium, serum 3.8 mmol/L 3.5-5.2 chloride, serum 104 mmol/L 98-107 blood glucose 85 mg/dL 65-110 chloride, serum 102 mmol/L 98-107 potassium, serum 3.8 mmol/L 3.5-5.2 carbon dioxide, venous blood 25.3 mmol/L 21.0-32 .0 sodium, serum 139 mmol/L 722-758 9229/09/06 urea nitrogen, blood 14 mg/dL 7-18 creatinine, [...] 5.0-8.5 Encounters Code Encounter Date Provider Facility CPT-43076 Level 3 New Patient 12:59:59 CDT Madelin almodovar MD [facility] CPT-84665 Level 3 Est. Patient 10:07:39 CUSTOMS VERIFIER Cale morris [facility] CPT-78850 Level 3 Est. Patient 11:35:37 CUSTOMS VERIFIER Cale morris [facility] CPT-97019 Level 4 Est. Patient 11:10:55 CDT Shannan Are ll [facility] CPT-74127 Level 4 Est. Patient 14:07:40 CDT Shannan Are ll [facility] CPT-86540 Level 4 Est. Patient 13:54:09 CDT Adrián dyson MD [facility] CPT-81252 Level 3 Est. Patient 09:22:14 CDT Adrián dyson MD [facility]-47153 Level 3 Est. Patient 08:59:31 CDT Adrián dyson MD [facility] CPT-06791 Level 3 Est. Patient 11:58:31 CDT Adrián dyson MD [facility] CPT-65442 Level 3 Est. Patient 09:06:35 CDT Adrián dyson MD [facility] CPT-36287 Level 3 Est. Patient 09:18:45 CDT Adrián dyson MD [facility] CPT-93623 Level 3 Est. Patient 09:13:22 CDT Adrián dyson MD [facility] CPT-45051 Level 3 Est. Patient 18:04:31 CUSTOMS VERIFIER Adrián dyson MD [facility] CPT-88424 Level 4 Est. Patient 14:00:53 CDT Uriel bhatia [facility] CPT-19580 Level 3 Est. Patient 20:00:09 CDT Terry jenkins DO [facility] CPT-43566 Level 3 Est. Patient 08:45:08 CDT Uriel bhatia [facility] CPT-68441 Level 3 Est. Patient 09:09:26 CDT Uriel bhatia [facility] CPT-97672 Level 3 Est. Patient 16:32:31 CDT Adrián dyson MD [facility] CPT-33878 Level 3 Est. Patient 09:35:27 CUSTOMS VERIFIER Norman fuentes [facility] CPT-72462 Level 2 Est. Patient 16:51:37 CUSTOMS VERIFIER Adrián dyson MD [facility] CPT-52373 Level 3 Est. Patient 10:00:11 CUSTOMS VERIFIER Ace Arriaza MD [facility] Procedures Code Procedure Name Date Entry Date Standard Desc ription CPT-79835 First Vx - Ix admin via ID I M or jet injects without counseling by physician 14:18:02 CDT CPT-08865 Gardasil 9 Intramuscular Suspension 1 4:18:02 CDT CPT-J3420 Vitamin B12 1000mcg (Cyanocobalamin) 16:30:23 CDT CPT-85908 Abx/Therapy Injection 16:30:23 CDT CPT-J3420 Vitamin B12 1000mcg (Cyanocobalamin) 16:09:42 CDT CPT-98160 Abx/Therapy Injection 16:09:42 CDT CPT-J3420 Vitamin B12 1000mcg (Cyanocobalamin) 15:22:47 CDT CPT-64017 Abx/Therapy Injection 15:22:47 CDT CPT-J3420 Vitamin B12 1000mcg (Cyanocobalamin) 17:00:35 CDT CPT-53682 Abx/Therapy Injection 17:00:35 CDT CPT-88739 First Vx - Ix admin via ID I M or jet injects without counseling by physician 16:04:17 CUSTOMS VERIFIER CPT-62904 Gardasil 9 Intramuscular Suspension 1 6:04:17 CUSTOMS VERIFIER CPT-49731 Venipuncture Draw Fee 09:40:26 CDT CPT-87136 [facility] - LAB USE ONLY 09:40:26 CDT 11/30 CPT-39573 CBC with Diff - LAB USE ONLY 09:40:26 CDT 2 CPT-72738 Addl Vx - Ix admin via ID IM or jet injects without counseling by physician 09:40:21 CDT CPT-88547 Menactra Intramuscular Injectable 09:40:21 CDT CPT-49486 Addl Vx - Ix admin via ID IM or jet injects without counseling by physician 09:40:21 CDT CPT-54539 Gardasil 9 Intramuscular Suspension 0 9:40:21 CDT CPT-08109 First Vx - Ix admin via ID I M or jet injects without counseling by physician 09:40:21 CDT CPT-46995 Havrix Intramuscular Suspension 720 EL U /0.5ML 09:40:21 CDT CPT-J2930 Solu Medrol 125 mg (Methyl Prednisolone Sodium Succinate) 09:43:26 CDT CPT-19394 Abx/Therapy Injection 09:43:26 CDT CPT-J2930 Solu Medrol 125 mg (Methyl Prednisolone Sodium Succinate) 09:05:55 CDT CPT-11003 Abx/Therapy Injection 09:05:55 CDT CPT-74915 Venipuncture Draw Fee 14:01:33 CDT CPT-04393 EKG Trac and Interp 11:22:04 CDT CPT-54108 Venipuncture Draw Fee 10:53:35 CDT CPT-J2930 Solu Medrol 125 mg (Methyl Prednisolone Sodium Succinate) 09:29:26 CDT CPT-06321 Abx/Therapy Injection 09:29:26 CDT CPT-Cryo Cryotherapy 16:51:37 CUSTOMS VERIFIER
--- OUTSIDE RECORDS SUMMARY | 2019-07-22 19:45 | XMS REPORT | Clinical Summary ---
Author Author Yovanny, Clarisa Christopher Organization [facility] Address Unknown Phone Unavailable Allergies, [...] Then increase to 20mg daily. FLUOXETINE HCL 26831558276 No Longer Active Yulissa Gibbs APRN Active PROZAC 20 MG ORAL CAPSULE Take 1 tab daily FLUO XETINE HCL 84293355621 Active Shannan Gibbs APRN Active BUSPIRONE HCL 7.5 MG ORAL TABLET 1 pill twice daily, for anxiety 20 14/11/05 BUSPIRONE HCL 97998300144 Active Shannan Gibbs APRN Active CITALOPRAM HYDROBROMIDE 20 MG ORAL TABLET take 1 tab p o qday for depresion and anxiety. CITALOPRAM HYDROBROMIDE 73704172991 No L onger Active Shannan Gibbs APRN Active CYANOCOBALAMIN 1000 MCG/ML INJECTION SOLUTION 1 inject ion weekly for 1 month, than 1 a month for 2 months. recheck lab CYANOCO BALAMIN 12138346425 No Longer Active Shannan Gibbs APRN Active ULTRAM 50 MG ORAL TABLET 1 TAB PO Q 6 HRS PRN HEADACHE TRAMADOL HCL 15518353756 Active Adrián Varghese MD Active ULTRAM 50 MG ORAL TABLET take 1 tab po q 6 hrs prn headache pain TRAMADOL HCL 86006892762 No Longer Active Adrián Varghese MD Active CLINDAMYCIN PHOSPHATE 2 % VAGINAL CREAM apply cream to acne BID prn CLINDAMYCIN PHOSPHATE 10272865038 No Longer Active Adrián dyson MD Active MINOCYCLINE HCL 100 MG ORAL CAPSULE take one po BID 20 13/11/25 MINOCYCLINE HCL 92227438359 No Longer Active Adrián Varghese MD A ctive TRI-SPRINTEC 0.18/0.215/0.25 MG-35 MCG ORAL TABLET 1 po qd a s directed NORGESTIM-ETH ESTRAD TRIPHASIC 25822885491 Active Adrián Varghese MD Active ZITHROMAX 250 MG ORAL TABLET 2 po today, then 1 po q days 2-5 20 12/07/06 AZITHROMYCIN 23664545159 No Longer Active Adrián Varghese MD Active ZITHROMAX 250 MG ORAL TABLET 2 po today, then 1 po q days 2-5 20 11/06/16 AZITHROMYCIN 06905968433 No Longer Active Adrián Varghese MD Active PREDNISONE 20 MG ORAL TABLET 2 tabs daily for 3 days, 1 tab daily for 3 days, 1/2 tab daily for 2 days PREDNISONE 26972101600 No Longer Active Adrián Varghese MD Active ZANTAC 75 75 MG ORAL TABLET take 1 po BID RANIT IDINE HCL 75499910890 No Longer Active Uriel BOYD Active BENZACLIN 1-5 % EXTERNAL GEL apply to skin BID prn for acne 2012 CLINDAMYCIN PHOS-BENZOYL PEROX 45940182947 No Longer Active Uriel BOYD Active BENZACLIN 1-5 % EXTERNAL GEL apply to skin BID prn for acne 2012 BENZACLIN 1-5 % EXTERNAL GEL 051150 CLINDAMYCIN PHOS-BE NZOYL PEROX Inactive MINOCYCLINE HCL 100 MG ORAL CAPSULE take one po BID 13/11/25 MINOCYCLINE HCL 100 MG ORAL CAPSULE 047742 MINOCYCLINE HCL Inac tive CLINDAMYCIN PHOSPHATE 2 % VAGINAL CREAM apply cream to acne BID prn CLINDAMYCIN PHOSPHATE 2 % VAGINAL CREAM 643028 CLINDAMY ANGELIA PHOSPHATE Inactive ULTRAM 50 MG ORAL TABLET take 1 tab po q 6 hrs prn headache pain ULTRAM 50 MG ORAL TABLET 845067 TRAMADOL HCL Inactiv e CYANOCOBALAMIN 1000 MCG/ML INJECTION SOLUTION 1 inject ion weekly for 1 month, than 1 a month for 2 months. recheck lab CYANOCOBALAMIN 1000 MCG/ML INJECTION SOLUTION 088580 CYANOCOBALAMIN Inactive CITALOPRAM HYDROBROMIDE 20 MG ORAL TABLET take 1 tab p o qday for depresion and anxiety. CITALOPRAM HYDROBROMIDE 20 MG ORAL TABLET 858998 CITALOPRAM HYDROBROMIDE Inactive PROZAC 10 MG ORAL CAPSULE Take 1 tab daily for 1 week. Then increase to 20mg daily. PROZAC 10 MG ORAL CAPSULE 985574 FLUOXETINE HCL Inactive ZANTAC 75 75 MG ORAL TABLET take 1 po BID ZANTAC 75 75 MG ORAL TABLET 738526 RANITIDINE HCL Inactive PREDNISONE 20 MG ORAL TABLET 2 tabs daily for 3 days, 1 tab daily for 3 days, 1/2 tab daily for 2 days PREDNISONE 20 MG ORAL T ABLET 456720 PREDNISONE Inactive ZITHROMAX 250 MG ORAL TABLET 2 po today, then 1 po q days 2-5 20 11/06/16 ZITHROMAX 250 MG ORAL TABLET 611875 AZITHROMYCIN [place] ctive ZITHROMAX 250 MG ORAL TABLET 2 po today, then 1 po q days 2-5 20 12/07/06 ZITHROMAX 250 MG ORAL TABLET 945088 AZITHROMYCIN [place] ctive Immunizations Vaccine Administration Date [...] Value Unit Range Description Lab Report: Chlamydia/GC APTIMA/65668 - Lab chlamydia DNA probe NOT DETECTED NOT DETECTED Lab Report: Chlamydia/GC APTIMA/60709 - Microbiology Neisseria gonorrhoeae DNA probe NOT DETECTED NO T DETECTED Lab Report: Comp. Metabolic Panel - Chem istry sodium, serum 141 mmol/L 136-456 5049/11/22 carbon dioxide, venous blood 25.2 mmol/L 21.0-32 .0 potassium, serum 3.8 mmol/L 3.5-5.2 chloride, serum 104 mmol/L 98-107 blood glucose 95 mg/dL 65-110 urea nitrogen, blood 15 mg/dL 7-18 creatinine, serum 0.79 mg/dL 0.60-1.30 alanine aminotransferase (SGPT), serum 28 U/L 10-55 aspartate aminotransferase (SGOT), serum 17 U/L 15-45 calcium, serum 8.9 mg/dL 8.5-10.1 bilirubin, serum, total 0.30 mg/dL 0.20-1.00 sodium, serum 139 mmol/L 608-850 7129/09/06 carbon dioxide, venous blood 25.3 mmol/L 21.0-32 [...] 5.0-8.5 Encounters Code Encounter Date Provider Facility [facility]-[id number] Level 3 Est. Patient 10:07:39 FINISH REMOVER Cale morris [facility]39720 Level 3 Est. Patient 11:35:37 FINISH REMOVER Cale morris [facility]-62612 Level 4 Est. Patient 11:10:55 CDT Shannan Lazcano [facility]-50349 Level 4 Est. Patient 14:07:40 [facility]-16700 Level 4 Est. Patient 13:54:09 CDT Adrián dyson MD [facility]40579 Level 3 Est. Patient 09:22:14 CDT Adrián dyson MD [facility]91257 Level 3 Est. Patient 08:59:31 CDT Adrián dyson MD [facility]75025 Level 3 Est. Patient 11:58:31 CDT Adrián dyson MD [facility]-21957 Level 3 Est. Patient 09:06:35 CDT Adrián dyson MD [facility]-58226 Level 3 Est. Patient 09:18:45 CDT Adrián dyson MD [facility]-53073 Level 3 Est. Patient 09:13:22 CDT Adrián dyson MD [facility]-13559 Level 3 Est. Patient 18:04:31 FINISH REMOVER Adrián dyson MD [facility]-88691 Level 4 Est. Patient 14:00:53 CDT Uriel bhatia [facility] CPT-50827 Level 3 Est. Patient 20:00:09 CDT Terry Elisha Sachin jenkins DO [facility] CPT-07599 Level 3 Est. Patient 08:45:08 CDT Uriel bhatia [facility] CPT-57510 Level 3 Est. Patient 09:09:26 CDT Uriel bhatia [facility] CPT-93566 Level 3 Est. Patient 16:32:31 CDT Adrián dyson MD [facility] CPT-56085 Level 3 Est. Patient 09:35:27 FINISH REMOVER Norman fuentes [facility] CPT-38347 Level 2 Est. Patient 16:51:37 FINISH REMOVER Adrián dyson MD [facility] CPT-25307 Level 3 Est. Patient 10:00:11 FINISH REMOVER Ace Arriaza MD [facility] Procedures Code Procedure Name Date Entry Date Standard Desc ription CPT-31047 First Vx - Ix admin via ID I M or jet injects without counseling by physician 14:18:02 CDT CPT-40294 Gardasil 9 Intramuscular Suspension 1 4:18:02 CDT CPT-J3420 Vitamin B12 1000mcg (Cyanocobalamin) 16:30:23 CDT CPT-85947 Abx/Therapy Injection 16:30:23 CDT CPT-J3420 Vitamin B12 1000mcg (Cyanocobalamin) 16:09:42 CDT CPT-24757 Abx/Therapy Injection 16:09:42 CDT CPT-J3420 Vitamin B12 1000mcg (Cyanocobalamin) 15:22:47 CDT CPT-48141 Abx/Therapy Injection 15:22:47 CDT CPT-J3420 Vitamin B12 1000mcg (Cyanocobalamin) 17:00:35 CDT CPT-72028 Abx/Therapy Injection 17:00:35 CDT CPT-34115 First Vx - Ix admin via ID I M or jet injects without counseling by physician 16:04:17 FINISH REMOVER CPT-11988 Gardasil 9 Intramuscular Suspension 1 6:04:17 FINISH REMOVER CPT-71483 Venipuncture Draw Fee 09:40:26 CDT CPT-76836 [facility] - LAB USE ONLY 09:40:26 CDT 11/30 CPT-64663 CBC with Diff - LAB USE ONLY 09:40:26 CDT 2 CPT-68911 Addl Vx - Ix admin via ID IM or jet injects without counseling by physician 09:40:21 CDT CPT-76722 Menactra Intramuscular Injectable 09:40:21 CDT CPT-10609 Addl Vx - Ix admin via ID IM or jet injects without counseling by physician 09:40:21 CDT CPT-07525 Gardasil 9 Intramuscular Suspension 0 9:40:21 CDT CPT-90060 First Vx - Ix admin via ID I M or jet injects without counseling by physician 09:40:21 CDT CPT-24535 Havrix Intramuscular Suspension 720 EL U /0.5ML 09:40:21 CDT CPT-J2930 Solu Medrol 125 mg (Methyl Prednisolone Sodium Succinate) 09:43:26 CDT CPT-52858 Abx/Therapy Injection 09:43:26 CDT CPT-J2930 Solu Medrol 125 mg (Methyl Prednisolone Sodium Succinate) 09:05:55 CDT CPT-95789 Abx/Therapy Injection 09:05:55 CDT CPT-94463 Venipuncture Draw Fee 14:01:33 CDT CPT-79876 EKG Trac and Interp 11:22:04 CDT CPT-31337 Venipuncture Draw Fee 10:53:35 CDT CPT-J2930 Solu Medrol 125 mg (Methyl Prednisolone Sodium Succinate) 09:29:26 CDT CPT-42776 Abx/Therapy Injection 09:29:26 CDT CPT-Cryo Cryotherapy 16:51:37 FINISH REMOVER
--- OUTSIDE RECORDS SUMMARY | 2019-07-22 19:46 | XMS REPORT | Clinical Summary ---
Author Author Yovanny, Clarisa Christopher Organization [facility] Address Unknown Phone Unavailable Allergies, Adverse Reactions, [...] increa se to 20mg daily. FLUOXETINE HCL 64879760592 No Longer Active Hubert WARD Active PROZAC 20 MG CAP Take 1 tab daily FLUOXETINE HCL 89620550194 Active Shannan Gibbs APRN Active BUSPIRONE HCL 7.5 MG ORAL TABS 1 pill twice daily, for anxiety 2016 BUSPIRONE HCL 48112317219 Active Shannan Gibbs APRN Active CITALOPRAM HYDROBROMIDE 20 MG ORAL TABS take 1 tab po qday for depresion and anxiety. CITALOPRAM HYDROBROMIDE 17432581886 No L onger Active Shannan Gibbs APRN Active CYANOCOBALAMIN 1000 MCG/ML INJ SOLN 1 injection weekly for 1 month, than 1 a month for 2 months. recheck lab CYANOCOBALAMIN 12020890903 No Longer Active Shannan Gibbs APRN Active ULTRAM 50 MG TAB 1 TAB PO Q 6 HRS PRN HEADACHE TRAMADOL HCL 50923673175 Active Adrián Varghese MD Active ULTRAM 50 MG TAB take 1 tab po q 6 hrs prn headache pain TRAMADOL HCL 42627460511 No Longer Active Adrián Varghese MD Acti ve CLINDAMYCIN PHOSPHATE 2 % CREA apply cream to acne BID prn 06/14 CLINDAMYCIN PHOSPHATE 52345628989 No Longer Active Adrián Joseph Active MINOCYCLINE HCL 100 MG CAPS take one po BID MINOCYCLINE HCL 06141104054 No Longer Active Adrián Varghese MD Acti ve TRI-SPRINTEC 0.18/0.215/0.25 MG-35 MCG TABS 1 po qd as directed 201 07/04/00 NORGESTIM-ETH ESTRAD TRIPHASIC 58233358441 Active Shannan Gibbs APRN Active ZITHROMAX 250 MG TAB 2 po today, then 1 po q days 2-5 AZITHROMYCIN 89998162964 No Longer Active Adrián Varghese MD Acti ve ZITHROMAX 250 MG TAB 2 po today, then 1 po q days 2-5 AZITHROMYCIN 67094099178 No Longer Active Adrián Varghese MD Acti ve PREDNISONE 20 MG TAB 2 tabs daily for 3 days, 1 t ab daily for 3 days, 1/2 tab daily for 2 days PREDNISONE 30933018764 No Longer Active Adrián Varghese MD Active ZANTAC 75 75 MG TABS take 1 po BID RANITIDINE H CL 01371490421 No Longer Active Uriel BOYD Active BENZACLIN 1-5 % GEL apply to skin BID prn for acne 201 05/05/14 CLINDAMYCIN PHOS-BENZOYL PEROX 95063286811 No Longer Active Uriel BOYD Active BENZACLIN 1-5 % GEL apply to skin BID prn for acne 201 05/05/14 BENZACLIN 1-5 % GEL 888633 CLINDAMYCIN PHOS-BENZOYL PEROX Inactive MINOCYCLINE HCL 100 MG CAPS take one po BID MINOCYCLINE HCL 100 MG CAPS 811321 MINOCYCLINE HCL Inactive CLINDAMYCIN PHOSPHATE 2 % CREA apply cream to acne BID prn 06/14 CLINDAMYCIN PHOSPHATE 2 % CREA 079920 CLINDAMYCIN PHOSP HATE Inactive ULTRAM 50 MG TAB take 1 tab po q 6 hrs prn headache pain ULTRAM 50 MG TAB 974585 TRAMADOL HCL Inactive CYANOCOBALAMIN 1000 MCG/ML INJ SOLN 1 injection weekly for 1 month, than 1 a month for 2 months. recheck lab CYANOCOB ALAMIN 1000 MCG/ML INJ SOLN 654002 CYANOCOBALAMIN Inactive CITALOPRAM HYDROBROMIDE 20 MG ORAL TABS take 1 tab po qday for depresion and anxiety. CITALOPRAM HYDROBROMIDE 20 MG ORAL TABS 2 99072 CITALOPRAM HYDROBROMIDE Inactive PROZAC 10 MG CAP Take 1 tab daily for 1 week. Then increa se to 20mg daily. PROZAC 10 MG CAP 095610 FLUOXETINE HCL Inactive ZANTAC 75 75 MG TABS take 1 po BID ZANTAC 75 75 MG TABS 658757 RANITIDINE HCL Inactive PREDNISONE 20 MG TAB 2 tabs daily for 3 days, 1 t ab daily for 3 days, 1/2 tab daily for 2 days PREDNISONE 20 MG TAB 171469 PREDNISON E Inactive ZITHROMAX 250 MG TAB 2 po today, then 1 po q days 2-5 ZITHROMAX 250 MG TAB 535625 AZITHROMYCIN Inactive ZITHROMAX 250 MG TAB 2 po today, then 1 po q days 2-5 ZITHROMAX 250 MG TAB 472120 AZITHROMYCIN Inactive Immunizations Vaccine Administration Date Value [...] - Chem istry sodium, serum 139 mmol/L 091-544 5843/09/06 carbon dioxide, venous blood 25.3 mmol/L 21.0-32 [...] 5.0-8.5 Encounters Code Encounter Date Provider Facility [facility]-04207 Level 3 Est. Patient 11:35:37 FRUIT SHIPPER Cale morris [facility]-28261 Level 4 Est. Patient 11:10:55 CDT Hubert [facility]-77596 Level 4 Est. Patient 14:07:40 CDT Hubert [facility]-48176 Level 4 Est. Patient 13:54:09 CDT Adrián dyson MD [facility]-09604 Level 3 Est. Patient 09:22:14 CDT Adrián dyson MD [facility]87343 Level 3 Est. Patient 08:59:31 CDT Adrián dyson MD [facility]35848 Level 3 Est. Patient 11:58:31 CDT Adrián dyson MD [facility] CPT-71189 Level 3 Est. Patient 09:06:35 CDT Adrián dyson MD [facility] CPT-04967 Level 3 Est. Patient 09:18:45 CDT Adrián dyson MD [facility] CPT-76619 Level 3 Est. Patient 09:13:22 CDT Adrián dyson MD [facility] CPT-00664 Level 3 Est. Patient 18:04:31 FRUIT SHIPPER Adrián dyson MD [facility] CPT-43119 Level 4 Est. Patient 14:00:53 CDT Demie Ahl sriram [facility] CPT-73831 Level 3 Est. Patient 20:00:09 CDT Terry jenkins DO [facility] CPT-54198 Level 3 Est. Patient 08:45:08 CDT Uriel bhatia [facility] CPT-44578 Level 3 Est. Patient 09:09:26 CDT Uriel hintonist [facility] CPT-00270 Level 3 Est. Patient 16:32:31 CDT Adrián dyson MD [facility] CPT-00083 Level 3 Est. Patient 09:35:27 FRUIT SHIPPER Norman fuentes [facility] CPT-26113 Level 2 Est. Patient 16:51:37 FRUIT SHIPPER Adrián dyson MD [facility] CPT-25095 Level 3 Est. Patient 10:00:11 FRUIT SHIPPER Ace Arriaza MD [facility] Procedures Code Procedure Name Date Entry Date Standard Desc ription CPT-23548 First Vx - Ix admin via ID I M or jet injects without counseling by physician 14:18:02 CDT CPT-72928 Gardasil 9 Intramuscular Suspension 1 4:18:02 CDT CPT-J3420 Vitamin B12 1000mcg (Cyanocobalamin) 16:30:23 CDT CPT-98281 Abx/Therapy Injection 16:30:23 CDT CPT-J3420 Vitamin B12 1000mcg (Cyanocobalamin) 16:09:42 CDT CPT-79377 Abx/Therapy Injection 16:09:42 CDT CPT-J3420 Vitamin B12 1000mcg (Cyanocobalamin) 15:22:47 CDT CPT-93020 Abx/Therapy Injection 15:22:47 CDT CPT-J3420 Vitamin B12 1000mcg (Cyanocobalamin) 17:00:35 CDT CPT-85298 Abx/Therapy Injection 17:00:35 CDT CPT-82024 First Vx - Ix admin via ID I M or jet injects without counseling by physician 16:04:17 FRUIT SHIPPER CPT-79005 Gardasil 9 Intramuscular Suspension 1 6:04:17 FRUIT SHIPPER CPT-73889 Venipuncture Draw Fee 09:40:26 CDT CPT-77764 [place] - LAB USE ONLY 09:40:26 CDT 11/30 CPT-47970 CBC with Diff - LAB USE ONLY 09:40:26 CDT 2 CPT-10094 Addl Vx - Ix admin via ID IM or jet injects without counseling by physician 09:40:21 CDT CPT-78031 Menactra Intramuscular Injectable 09:40:21 CDT CPT-69404 Addl Vx - Ix admin via ID IM or jet injects without counseling by physician 09:40:21 CDT CPT-98167 Gardasil 9 Intramuscular Suspension 0 9:40:21 CDT CPT-80047 First Vx - Ix admin via ID I M or jet injects without counseling by physician 09:40:21 CDT CPT-60960 Havrix Intramuscular Suspension 720 EL U /0.5ML 09:40:21 CDT CPT-J2930 Solu Medrol 125 mg (Methyl Prednisolone Sodium Succinate) 09:43:26 CDT CPT-11799 Abx/Therapy Injection 09:43:26 CDT CPT-J2930 Solu Medrol 125 mg (Methyl Prednisolone Sodium Succinate) 09:05:55 CDT CPT-07435 Abx/Therapy Injection 09:05:55 CDT CPT-18251 Venipuncture Draw Fee 14:01:33 CDT CPT-83647 EKG Trac and Interp 11:22:04 CDT CPT-80635 Venipuncture Draw Fee 10:53:35 CDT CPT-J2930 Solu Medrol 125 mg (Methyl Prednisolone Sodium Succinate) 09:29:26 CDT CPT-16955 Abx/Therapy Injection 09:29:26 CDT CPT-Cryo Cryotherapy 16:51:37 FRUIT SHIPPER
--- OUTSIDE RECORDS SUMMARY | 2019-07-22 19:46 | XMS REPORT | Clinical Summary ---
[...] Instructions Start Date Stop Date Generic Name [facility] Status Provider Patient Instruction CLINDAMYCIN PHOSPHATE 2 % CREA apply cream to acne BID prn 06/14 CLINDAMYCIN PHOSPHATE 89574842493 No Longer Active Adrián Joseph Active MINOCYCLINE HCL 100 MG CAPS take one po BID MINOCYCLINE HCL 88736309037 No Longer Active Adrián Varghese MD Acti ve TRI-SPRINTEC 0.18/0.215/0.25 MG-35 MCG TABS 1 po qd as directed 201 07/04/00 NORGESTIM-ETH ESTRAD TRIPHASIC 05336731318 Active Adrián Varghese MD Active ZITHROMAX 250 MG TAB 2 po today, then 1 po q days 2-5 AZITHROMYCIN 30665207297 No Longer Active Adrián Varghese MD Acti ve ULTRAM 50 MG TAB take 1 tab po q 6 hrs prn headache pain TRAMADOL HCL 07139870873 Active Adrián Varghese MD Active ZITHROMAX 250 MG TAB 2 po today, then 1 po q days 2-5 AZITHROMYCIN 11705171951 No Longer Active Adrián Varghese MD Acti ve PREDNISONE 20 MG TAB 2 tabs daily for 3 days, 1 t ab daily for 3 days, 1/2 tab daily for 2 days PREDNISONE 71329283317 No Longer Active Adrián Varghese MD Active ZANTAC 75 75 MG TABS take 1 po BID RANITIDINE H CL 59690016973 No Longer Active Uriel BOYD Active BENZACLIN 1-5 % GEL apply to skin BID prn for acne 201 05/05/14 CLINDAMYCIN PHOS-BENZOYL PEROX 07321951512 No Longer Active Uriel BOYD Active BENZACLIN 1-5 % GEL apply to skin BID prn for acne 201 05/05/14 BENZACLIN 1-5 % GEL 170623 CLINDAMYCIN PHOS-BENZOYL PEROX Inactive MINOCYCLINE HCL 100 MG CAPS take one po BID MINOCYCLINE HCL 100 MG CAPS 712208 MINOCYCLINE HCL Inactive CLINDAMYCIN PHOSPHATE 2 % CREA apply cream to acne BID prn 06/14 CLINDAMYCIN PHOSPHATE 2 % CREA 311218 CLINDAMYCIN PHOSP HATE Inactive ZANTAC 75 75 MG TABS take 1 po BID ZANTAC 75 75 MG TABS 863311 RANITIDINE HCL Inactive PREDNISONE 20 MG TAB 2 tabs daily for 3 days, 1 t ab daily for 3 days, 1/2 tab daily for 2 days PREDNISONE 20 MG TAB 192172 PREDNISON E Inactive ZITHROMAX 250 MG TAB 2 po today, then 1 po q days 2-5 ZITHROMAX 250 MG TAB 9096420 AZITHROMYCIN Inactive ZITHROMAX 250 MG TAB 2 po today, then 1 po q days 2-5 ZITHROMAX 250 MG TAB 5766275 AZITHROMYCIN Inactive Immunizations Vaccine Administration Date Value [...] Measured Encounters Code Encounter Date Provider Facility CPT-66516 Level 3 Est. Patient 08:59:31 CDT Adrián dyson MD [facility] CPT-55185 Level 3 Est. Patient 11:58:31 CDT Adrián dyson MD [facility] CPT-72353 Level 3 Est. Patient 09:06:35 CDT Adrián dyson MD [facility] CPT-57996 Level 3 Est. Patient 09:18:45 CDT Adrián dyson MD [facility] CPT-38574 Level 3 Est. Patient 09:13:22 CDT Adrián dyson MD [facility] CPT-97511 Level 3 Est. Patient 18:04:31 INTEGRATION ANALYST Adrián dyson MD [facility] CPT-20234 Level 4 Est. Patient 14:00:53 CDT Uriel bhatia [facility] CPT-59549 Level 3 Est. Patient 20:00:09 CDT Terry jenkins DO [facility] CPT-21915 Level 3 Est. Patient 08:45:08 CDT Uriel bhatia [facility] CPT-40170 Level 3 Est. Patient 09:09:26 CDT Uriel bhatia [facility] CPT-61257 Level 3 Est. Patient 16:32:31 CDT Adrián dyson MD [facility] CPT-53289 Level 3 Est. Patient 09:35:27 INTEGRATION ANALYST Norman fuentes [facility] CPT-61193 Level 2 Est. Patient 16:51:37 INTEGRATION ANALYST Adrián dyson MD [facility] CPT-51477 Level 3 Est. Patient 10:00:11 INTEGRATION ANALYST Ace Arriaza MD [facility] Procedures Code Procedure Name Date Entry Date Standard Desc ription CPT-J2930 Solu Medrol 125 mg (Methyl Prednisolone Sodium Succinate) 09:43:26 CDT CPT-33878 Abx/Therapy Injection 09:43:26 CDT CPT-J2930 Solu Medrol 125 mg (Methyl Prednisolone Sodium Succinate) 09:05:55 CDT CPT-07425 Abx/Therapy Injection 09:05:55 CDT CPT-46904 Venipuncture Draw Fee 14:01:33 CDT CPT-53695 EKG Trac and Interp 11:22:04 CDT CPT-00464 Venipuncture Draw Fee 10:53:35 CDT CPT-J2930 Solu Medrol 125 mg (Methyl Prednisolone Sodium Succinate) 09:29:26 CDT CPT-72178 Abx/Therapy Injection 09:29:26 CDT CPT-Cryo Cryotherapy 16:51:37 INTEGRATION ANALYST
--- OUTSIDE RECORDS SUMMARY | 2019-07-22 19:46 | XMS REPORT | Clinical Summary ---
[...] of psychotic behavior B12 deficiency 266.2 Active Samrene Raida Other B-complex deficiencies Muscle cramps 729.82 [...] 1 TABLET BY MOUTH DAILY DIRECTED SULFAMETHOXAZOLE-TRIMETHOPRIM 52908639346 No Longer Active Madelin Hatch MD Active BUSPIRONE HCL 7.5 MG ORAL TABLET PRN BUSPIR ONE HCL 55882545790 Active Madelin Hatch MD Active PROZAC 20 MG ORAL CAPSULE PRN FLUOXETINE HCL 0077 5595369 Active Madelin Hatch MD Active ABSORICA 20 MG ORAL CAPSULE 1 tablet daily ISOT RETINOIN 14788076207 Active Madelin Hatch MD Active ACZONE 5 % EXTERNAL GEL apply once daily to face 5 DAPSONE 08961835814 No Longer Active Madelin Hatch MD Active PROZAC 10 MG ORAL CAPSULE Take 1 tab daily for 1 week. Then increase to 20mg daily. FLUOXETINE HCL 75734656193 No Longer Active Yulissa an Joeyll DINING ROOM COORDINATOR Active CITALOPRAM HYDROBROMIDE 20 MG ORAL TABLET take 1 tab p o qday for depresion and anxiety. CITALOPRAM HYDROBROMIDE 45846248499 No L onger Active Shannan Evans DINING ROOM COORDINATOR Active CYANOCOBALAMIN 1000 MCG/ML INJECTION SOLUTION 1 inject ion weekly for 1 month, than 1 a month for 2 months. recheck lab CYANOCO BALAMIN 05454525970 No Longer Active Shannan Evans APRN Active ULTRAM 50 MG ORAL TABLET 1 TAB PO Q 6 HRS PRN HEADACHE TRAMADOL HCL 25650860183 Active Adrián Varghese MD Active ULTRAM 50 MG ORAL TABLET take 1 tab po q 6 hrs prn headache pain TRAMADOL HCL 84236428987 No Longer Active Adrián Varghese MD Active CLINDAMYCIN PHOSPHATE 2 % VAGINAL CREAM apply cream to acne BID prn CLINDAMYCIN PHOSPHATE 48195016156 No Longer Active Adrián dyson MD Active MINOCYCLINE HCL 100 MG ORAL CAPSULE take one po BID 20 13/11/25 MINOCYCLINE HCL 16780377526 No Longer Active Adrián Varghese MD A ctive TRI-SPRINTEC 0.18/0.215/0.25 MG-35 MCG ORAL TABLET 1 po qd a s directed NORGESTIM-ETH ESTRAD TRIPHASIC 27409155791 Active Madelin Hatch MD Active ZITHROMAX 250 MG ORAL TABLET 2 po today, then 1 po q days 2-5 20 12/07/06 AZITHROMYCIN 51664327621 No Longer Active Adrián Varghese MD Active ZITHROMAX 250 MG ORAL TABLET 2 po today, then 1 po q days 2-5 20 11/06/16 AZITHROMYCIN 63941600386 No Longer Active Adrián Varghese MD Active PREDNISONE 20 MG ORAL TABLET 2 tabs daily for 3 days, 1 tab daily for 3 days, 1/2 tab daily for 2 days PREDNISONE 10382991334 No Longer Active Adrián Varghese MD Active ZANTAC 75 75 MG ORAL TABLET take 1 po BID RANIT IDINE HCL 44517326754 No Longer Active Uriel BOYD Active BENZACLIN 1-5 % EXTERNAL GEL apply to skin BID prn for acne 2012 CLINDAMYCIN PHOS-BENZOYL PEROX 67270735463 No Longer Active Uriel BOYD Active BENZACLIN 1-5 % EXTERNAL GEL apply to skin BID prn for acne 2012 BENZACLIN 1-5 % EXTERNAL GEL 683602 CLINDAMYCIN PHOS-BE NZOYL PEROX Inactive MINOCYCLINE HCL 100 MG ORAL CAPSULE take one po BID 13/11/25 MINOCYCLINE HCL 100 MG ORAL CAPSULE 666290 MINOCYCLINE HCL Inac tive CLINDAMYCIN PHOSPHATE 2 % VAGINAL CREAM apply cream to acne BID prn CLINDAMYCIN PHOSPHATE 2 % VAGINAL CREAM 749714 CLINDAMY ANGELIA PHOSPHATE Inactive ULTRAM 50 MG ORAL TABLET take 1 tab po q 6 hrs prn headache pain ULTRAM 50 MG ORAL TABLET 532663 TRAMADOL HCL Inactiv e CYANOCOBALAMIN 1000 MCG/ML INJECTION SOLUTION 1 inject ion weekly for 1 month, than 1 a month for 2 months. recheck lab CYANOCOBALAMIN 1000 MCG/ML INJECTION SOLUTION 070846 CYANOCOBALAMIN Inactive CITALOPRAM HYDROBROMIDE 20 MG ORAL TABLET take 1 tab p o qday for depresion and anxiety. CITALOPRAM HYDROBROMIDE 20 MG ORAL TABLET 883559 CITALOPRAM HYDROBROMIDE Inactive PROZAC 10 MG ORAL CAPSULE Take 1 tab daily for 1 week. Then increase to 20mg daily. PROZAC 10 MG ORAL CAPSULE 002222 FLUOXETINE HCL Inactive ACZONE 5 % EXTERNAL GEL apply once daily to face 07/22 ACZONE 5 % EXTERNAL GEL 454254 DAPSONE Inactive SULFAMETHOXAZOLE-TRIMETHOPRIM 800-160 MG ORAL TABLET T QUINCY 1 TABLET BY MOUTH DAILY DIRECTED SULFAMETHOXAZOLE-TRI METHOPRIM 800-160 MG ORAL TABLET 559352 SULFAMETHOXAZOLE-TRIMETHOPRIM Inactive ZANTAC 75 75 MG ORAL TABLET take 1 po BID ZANTAC 75 75 MG ORAL TABLET 823996 RANITIDINE HCL Inactive PREDNISONE 20 MG ORAL TABLET 2 tabs daily for 3 days, 1 tab daily for 3 days, 1/2 tab daily for 2 days PREDNISONE 20 MG ORAL T ABLET 553731 PREDNISONE Inactive ZITHROMAX 250 MG ORAL TABLET 2 po today, then 1 po q days 2-5 20 11/06/16 ZITHROMAX 250 MG ORAL TABLET 534928 AZITHROMYCIN [place] ZITHROMAX 250 MG ORAL TABLET 2 po today, then 1 po q days 2-5 20 12/07/06 ZITHROMAX 250 MG ORAL TABLET 123975 AZITHROMYCIN [place] ctive Immunizations Vaccine Administration Date [...] Value Unit Range Description Lab Report: Chlamydia/GC APTIMA/10277 - Lab chlamydia DNA probe NOT DETECTED NOT DETECTED Lab Report: Chlamydia/GC APTIMA/69496 - Microbiology Neisseria gonorrhoeae DNA probe NOT DETECTED NO T DETECTED Lab Report: Comp. Metabolic Panel - Chem istry blood glucose 95 mg/dL 65-110 creatinine, serum 0.79 mg/dL 0.60-1.30 alanine aminotransferase (SGPT), serum 28 U/L 10-55 aspartate aminotransferase (SGOT), serum 17 U/L 15-45 calcium, serum 8.9 mg/dL 8.5-10.1 bilirubin, serum, total 0.30 mg/dL 0.20-1.00 sodium, serum 141 mmol/L 652-308 4365/11/22 carbon dioxide, venous blood 25.2 mmol/L 21.0-32 .0 potassium, serum 3.8 mmol/L 3.5-5.2 chloride, serum 104 mmol/L 98-107 urea nitrogen, blood 15 mg/dL 7-18 urea nitrogen, blood 14 mg/dL 7-18 creatinine, [...] Negative Encounters Code Encounter Date Provider Facility CPT-54780 Level 3 New Patient 12:59:59 CDT Madelin almodovar MD [facility] CPT-95536 Level 3 Est. Patient 10:07:39 CAFETERIA COOK Cale morris [facility]-50671 Level 3 Est. Patient 11:35:37 CAFETERIA COOK Cale morris [facility]-39829 Level 4 Est. Patient 11:10:55 CDT Shannan Are ll [facility]-37799 Level 4 Est. Patient 14:07:40 CDT Shannan Are ll [facility] CPT-47465 Level 4 Est. Patient 13:54:09 CDT Adrián dyson MD [facility]-33852 Level 3 Est. Patient 09:22:14 CDT Adrián dyson MD [facility]-67965 Level 3 Est. Patient 08:59:31 CDT Adrián dyson MD [facility] CPT-01479 Level 3 Est. Patient 11:58:31 CDT Adrián dyson MD [facility] CPT-85149 Level 3 Est. Patient 09:06:35 CDT Adrián dyson MD [facility] CPT-60209 Level 3 Est. Patient 09:18:45 CDT Adrián dyson MD [facility] CPT-51386 Level 3 Est. Patient 09:13:22 CDT Adrián dyson MD [facility] CPT-94332 Level 3 Est. Patient 18:04:31 CAFETERIA COOK Adrián dyson MD [facility] CPT-08641 Level 4 Est. Patient 14:00:53 CDT Uriel bhatia [facility] CPT-35558 Level 3 Est. Patient 20:00:09 CDT Terry jenkins DO [facility] CPT-68568 Level 3 Est. Patient 08:45:08 CDT Uriel bhatia [facility] CPT-86713 Level 3 Est. Patient 09:09:26 CDT Uriel bhatia [facility] CPT-34448 Level 3 Est. Patient 16:32:31 CDT Adrián dyson MD [facility] CPT-59964 Level 3 Est. Patient 09:35:27 CAFETERIA COOK Norman fuentes [facility] CPT-16031 Level 2 Est. Patient 16:51:37 CAFETERIA COOK Adrián dyson MD [facility] CPT-30064 Level 3 Est. Patient 10:00:11 CAFETERIA COOK Ace Arriaza MD [facility] Procedures Code Procedure Name Date Entry Date Standard Desc ription CPT-46104 First Vx - Ix admin via ID I M or jet injects without counseling by physician 14:18:02 CDT CPT-75819 Gardasil 9 Intramuscular Suspension 1 4:18:02 CDT CPT-J3420 Vitamin B12 1000mcg (Cyanocobalamin) 16:30:23 CDT CPT-34501 Abx/Therapy Injection 16:30:23 CDT CPT-J3420 Vitamin B12 1000mcg (Cyanocobalamin) 16:09:42 CDT CPT-40137 Abx/Therapy Injection 16:09:42 CDT CPT-J3420 Vitamin B12 1000mcg (Cyanocobalamin) 15:22:47 CDT CPT-39393 Abx/Therapy Injection 15:22:47 CDT CPT-J3420 Vitamin B12 1000mcg (Cyanocobalamin) 17:00:35 CDT CPT-29852 Abx/Therapy Injection 17:00:35 CDT CPT-85004 First Vx - Ix admin via ID I M or jet injects without counseling by physician 16:04:17 CAFETERIA COOK CPT-31940 Gardasil 9 Intramuscular Suspension 1 6:04:17 CAFETERIA COOK CPT-98160 Venipuncture Draw Fee 09:40:26 CDT CPT-84747 [place] - LAB USE ONLY 09:40:26 CDT 11/30 CPT-16904 CBC with Diff - LAB USE ONLY 09:40:26 CDT 2 CPT-52291 Addl Vx - Ix admin via ID IM or jet injects without counseling by physician 09:40:21 CDT CPT-90170 Menactra Intramuscular Injectable 09:40:21 CDT CPT-82522 Addl Vx - Ix admin via ID IM or jet injects without counseling by physician 09:40:21 CDT CPT-03159 Gardasil 9 Intramuscular Suspension 0 9:40:21 CDT CPT-84993 First Vx - Ix admin via ID I M or jet injects without counseling by physician 09:40:21 CDT CPT-55243 Havrix Intramuscular Suspension 720 EL U /0.5ML 09:40:21 CDT CPT-J2930 Solu Medrol 125 mg (Methyl Prednisolone Sodium Succinate) 09:43:26 CDT CPT-79115 Abx/Therapy Injection 09:43:26 CDT CPT-J2930 Solu Medrol 125 mg (Methyl Prednisolone Sodium Succinate) 09:05:55 CDT CPT-87737 Abx/Therapy Injection 09:05:55 CDT CPT-24508 Venipuncture Draw Fee 14:01:33 CDT CPT-60776 EKG Trac and Interp 11:22:04 CDT CPT-11772 Venipuncture Draw Fee 10:53:35 CDT CPT-J2930 Solu Medrol 125 mg (Methyl Prednisolone Sodium Succinate) 09:29:26 CDT CPT-43376 Abx/Therapy Injection 09:29:26 CDT CPT-Cryo Cryotherapy 16:51:37 CAFETERIA COOK
--- OUTSIDE RECORDS SUMMARY | 2019-07-22 19:46 | XMS REPORT | Clinical Summary ---
[...] Varghese MD Headache Pharyngitis-Acute 462 Active Adrián Varhgese MD Acute pharyngitis Well Child Exam V20.2 [...] increa se to 20mg daily. FLUOXETINE HCL 89113462810 No Longer Active Hubert WARD Active PROZAC 20 MG CAP Take 1 tab daily FLUOXETINE HCL 43894183340 Active Shannan Gibbs APRN Active BUSPIRONE HCL 7.5 MG ORAL TABS 1 pill twice daily, for anxiety 2016 BUSPIRONE HCL 29831169308 Active Shannan Gibbs APRN Active CITALOPRAM HYDROBROMIDE 20 MG ORAL TABS take 1 tab po qday for depresion and anxiety. CITALOPRAM HYDROBROMIDE 94646031518 No L onger Active Shannan Gibbs APRN Active CYANOCOBALAMIN 1000 MCG/ML INJ SOLN 1 injection weekly for 1 month, than 1 a month for 2 months. recheck lab CYANOCOBALAMIN 47397712766 No Longer Active Shannan Gibbs APRN Active ULTRAM 50 MG TAB 1 TAB PO Q 6 HRS PRN HEADACHE TRAMADOL HCL 43574704956 Active Adrián Varghese MD Active ULTRAM 50 MG TAB take 1 tab po q 6 hrs prn headache pain TRAMADOL HCL 22957179872 No Longer Active Adrián Varghese MD Acti ve CLINDAMYCIN PHOSPHATE 2 % CREA apply cream to acne BID prn 06/14 CLINDAMYCIN PHOSPHATE 55808548946 No Longer Active Ardián Joseph Active MINOCYCLINE HCL 100 MG CAPS take one po BID MINOCYCLINE HCL 69597057870 No Longer Active Adrián Varghese MD Acti ve TRI-SPRINTEC 0.18/0.215/0.25 MG-35 MCG TABS 1 po qd as directed 201 07/04/00 NORGESTIM-ETH ESTRAD TRIPHASIC 53651805957 Active Shannan Gibbs APRN Active ZITHROMAX 250 MG TAB 2 po today, then 1 po q days 2-5 AZITHROMYCIN 44225545452 No Longer Active Adrián Varghese MD Acti ve ZITHROMAX 250 MG TAB 2 po today, then 1 po q days 2-5 AZITHROMYCIN 38450544829 No Longer Active Adrián Varghese MD Acti ve PREDNISONE 20 MG TAB 2 tabs daily for 3 days, 1 t ab daily for 3 days, 1/2 tab daily for 2 days PREDNISONE 72563639216 No Longer Active Adrián Varghese MD Active ZANTAC 75 75 MG TABS take 1 po BID RANITIDINE H CL 62143709731 No Longer Active Uriel BOYD Active BENZACLIN 1-5 % GEL apply to skin BID prn for acne 201 05/05/14 CLINDAMYCIN PHOS-BENZOYL PEROX 54906877170 No Longer Active Uriel BOYD Active BENZACLIN 1-5 % GEL apply to skin BID prn for acne 201 05/05/14 BENZACLIN 1-5 % GEL 020566 CLINDAMYCIN PHOS-BENZOYL PEROX Inactive MINOCYCLINE HCL 100 MG CAPS take one po BID MINOCYCLINE HCL 100 MG CAPS 222436 MINOCYCLINE HCL Inactive CLINDAMYCIN PHOSPHATE 2 % CREA apply cream to acne BID prn 06/14 CLINDAMYCIN PHOSPHATE 2 % CREA 256557 CLINDAMYCIN PHOSP HATE Inactive ULTRAM 50 MG TAB take 1 tab po q 6 hrs prn headache pain ULTRAM 50 MG TAB 047889 TRAMADOL HCL Inactive CYANOCOBALAMIN 1000 MCG/ML INJ SOLN 1 injection weekly for 1 month, than 1 a month for 2 months. recheck lab CYANOCOB ALAMIN 1000 MCG/ML INJ SOLN 394534 CYANOCOBALAMIN Inactive CITALOPRAM HYDROBROMIDE 20 MG ORAL TABS take 1 tab po qday for depresion and anxiety. CITALOPRAM HYDROBROMIDE 20 MG ORAL TABS 2 32413 CITALOPRAM HYDROBROMIDE Inactive PROZAC 10 MG CAP Take 1 tab daily for 1 week. Then increa se to 20mg daily. PROZAC 10 MG CAP 455812 FLUOXETINE HCL Inactive ZANTAC 75 75 MG TABS take 1 po BID ZANTAC 75 75 MG TABS 778283 RANITIDINE HCL Inactive PREDNISONE 20 MG TAB 2 tabs daily for 3 days, 1 t ab daily for 3 days, 1/2 tab daily for 2 days PREDNISONE 20 MG TAB 679775 PREDNISON E Inactive ZITHROMAX 250 MG TAB 2 po today, then 1 po q days 2-5 ZITHROMAX 250 MG TAB 544583 AZITHROMYCIN Inactive ZITHROMAX 250 MG TAB 2 po today, then 1 po q days 2-5 ZITHROMAX 250 MG TAB 350014 AZITHROMYCIN Inactive Immunizations Vaccine Administration Date Value [...] Value Unit Range Description Lab Report: Chlamydia/GC APTIMA/32066 - Lab chlamydia DNA probe NOT DETECTED NOT DETECTED Lab Report: Chlamydia/GC [facility]TIMA/67748 - Microbiology Neisseria gonorrhoeae DNA probe NOT DETECTED NO T DETECTED Lab Report: Comp. Metabolic Panel - Chem istry sodium, serum 139 mmol/L [phone]/09/06 carbon dioxide, venous blood 25.3 mmol/L 21.0-32 [...] 5.0-8.5 Encounters Code Encounter Date Provider Facility CPT-85112 Level 3 Est. Patient 11:35:37 MANAGER PROGRAM MANAGEMENT Cale morris [facility]-26886 Level 4 Est. Patient 11:10:55 CDT Hubert [facility]-30444 Level 4 Est. Patient 14:07:40 CDT Hubert [facility]-96593 Level 4 Est. Patient 13:54:09 CDT Adrián dyson MD [facility]-73899 Level 3 Est. Patient 09:22:14 CDT Adrián dyson MD [facility]-16160 Level 3 Est. Patient 08:59:31 CDT Adrián dyson MD [facility]-51969 Level 3 Est. Patient 11:58:31 CDT Adrián dyson MD [facility] CPT-37796 Level 3 Est. Patient 09:06:35 CDT Adrián dyson MD [facility] CPT-39703 Level 3 Est. Patient 09:18:45 CDT Adrián dyson MD [facility] CPT-93520 Level 3 Est. Patient 09:13:22 CDT Adrián dyson MD [facility] CPT-44709 Level 3 Est. Patient 18:04:31 MANAGER PROGRAM MANAGEMENT Adrián dyson MD [facility] CPT-88080 Level 4 Est. Patient 14:00:53 CDT Uriel bhatia [facility] CPT-15321 Level 3 Est. Patient 20:00:09 CDT Terry jenkins DO [facility] CPT-36879 Level 3 Est. Patient 08:45:08 CDT Uriel bhatia [facility] CPT-46341 Level 3 Est. Patient 09:09:26 CDT Uriel bhatia [facility] CPT-77946 Level 3 Est. Patient 16:32:31 CDT Adrián dyson MD [facility] CPT-84857 Level 3 Est. Patient 09:35:27 MANAGER PROGRAM MANAGEMENT Norman fuentes [facility] CPT-46245 Level 2 Est. Patient 16:51:37 MANAGER PROGRAM MANAGEMENT Adrián dyson MD [facility] CPT-29965 Level 3 Est. Patient 10:00:11 MANAGER PROGRAM MANAGEMENT Ace Arriaza MD [facility] Procedures Code Procedure Name Date Entry Date Standard Desc ription CPT-94836 First Vx - Ix admin via ID I M or jet injects without counseling by physician 14:18:02 CDT CPT-75990 Gardasil 9 Intramuscular Suspension 1 4:18:02 CDT CPT-J3420 Vitamin B12 1000mcg (Cyanocobalamin) 16:30:23 CDT CPT-88260 Abx/Therapy Injection 16:30:23 CDT CPT-J3420 Vitamin B12 1000mcg (Cyanocobalamin) 16:09:42 CDT CPT-98404 Abx/Therapy Injection 16:09:42 CDT CPT-J3420 Vitamin B12 1000mcg (Cyanocobalamin) 15:22:47 CDT CPT-91012 Abx/Therapy Injection 15:22:47 CDT CPT-J3420 Vitamin B12 1000mcg (Cyanocobalamin) 17:00:35 CDT CPT-88187 Abx/Therapy Injection 17:00:35 CDT CPT-70541 First Vx - Ix admin via ID I M or jet injects without counseling by physician 16:04:17 MANAGER PROGRAM MANAGEMENT CPT-02555 Gardasil 9 Intramuscular Suspension 1 6:04:17 MANAGER PROGRAM MANAGEMENT CPT-76114 Venipuncture Draw Fee 09:40:26 CDT CPT-30946 [facility] - LAB USE ONLY 09:40:26 CDT 11/30 CPT-38757 CBC with Diff - LAB USE ONLY 09:40:26 CDT 2 CPT-71200 Addl Vx - Ix admin via ID IM or jet injects without counseling by physician 09:40:21 CDT CPT-46951 Menactra Intramuscular Injectable 09:40:21 CDT CPT-45780 Addl Vx - Ix admin via ID IM or jet injects without counseling by physician 09:40:21 CDT CPT-52660 Gardasil 9 Intramuscular Suspension 0 9:40:21 CDT CPT-63742 First Vx - Ix admin via ID I M or jet injects without counseling by physician 09:40:21 CDT CPT-78695 Havrix Intramuscular Suspension 720 EL U /0.5ML 09:40:21 CDT CPT-J2930 Solu Medrol 125 mg (Methyl Prednisolone Sodium Succinate) 09:43:26 CDT CPT-37339 Abx/Therapy Injection 09:43:26 CDT CPT-J2930 Solu Medrol 125 mg (Methyl Prednisolone Sodium Succinate) 09:05:55 CDT CPT-33214 Abx/Therapy Injection 09:05:55 CDT CPT-01672 Venipuncture Draw Fee 14:01:33 CDT CPT-71291 EKG Trac and Interp 11:22:04 CDT CPT-96798 Venipuncture Draw Fee 10:53:35 CDT CPT-J2930 Solu Medrol 125 mg (Methyl Prednisolone Sodium Succinate) 09:29:26 CDT CPT-48031 Abx/Therapy Injection 09:29:26 CDT CPT-Cryo Cryotherapy 16:51:37 MANAGER PROGRAM MANAGEMENT
--- OUTSIDE RECORDS SUMMARY | 2019-07-22 19:46 | XMS REPORT | Clinical Summary ---
Author Author Yovanny, Clarisa Christopher Organization [facility] Address Unknown Phone Unavailable Allergies, Adverse Reactions, [...] increa se to 20mg daily. FLUOXETINE HCL 81504833645 No Longer Active Hubert WARD Active PROZAC 20 MG CAP Take 1 tab daily FLUOXETINE HCL 93744429423 Active Shannan Gibbs APRN Active BUSPIRONE HCL 7.5 MG ORAL TABS 1 pill twice daily, for anxiety 2016 BUSPIRONE HCL 49468284691 Active Shannan Gibbs APRN Active CITALOPRAM HYDROBROMIDE 20 MG ORAL TABS take 1 tab po qday for depresion and anxiety. CITALOPRAM HYDROBROMIDE 48820428591 No L onger Active Shannan Gibbs APRN Active CYANOCOBALAMIN 1000 MCG/ML INJ SOLN 1 injection weekly for 1 month, than 1 a month for 2 months. recheck lab CYANOCOBALAMIN 02264125078 No Longer Active Shannan Gibbs APRN Active ULTRAM 50 MG TAB 1 TAB PO Q 6 HRS PRN HEADACHE TRAMADOL HCL 42761462667 Active Adrián Varghese MD Active ULTRAM 50 MG TAB take 1 tab po q 6 hrs prn headache pain TRAMADOL HCL 78810818023 No Longer Active Adrián Varghese MD Acti ve CLINDAMYCIN PHOSPHATE 2 % CREA apply cream to acne BID prn 06/14 CLINDAMYCIN PHOSPHATE 32227985874 No Longer Active Adrián Joseph Active MINOCYCLINE HCL 100 MG CAPS take one po BID MINOCYCLINE HCL 60878937175 No Longer Active Adrián Varghese MD Acti ve TRI-SPRINTEC 0.18/0.215/0.25 MG-35 MCG TABS 1 po qd as directed 201 07/04/00 NORGESTIM-ETH ESTRAD TRIPHASIC 55280067261 Active Shannan Gibbs APRN Active ZITHROMAX 250 MG TAB 2 po today, then 1 po q days 2-5 AZITHROMYCIN 78389535178 No Longer Active Adrián Varghese MD Acti ve ZITHROMAX 250 MG TAB 2 po today, then 1 po q days 2-5 AZITHROMYCIN 89411967643 No Longer Active Adrián Varghese MD Acti ve PREDNISONE 20 MG TAB 2 tabs daily for 3 days, 1 t ab daily for 3 days, 1/2 tab daily for 2 days PREDNISONE 86855766225 No Longer Active Adrián Varghese MD Active ZANTAC 75 75 MG TABS take 1 po BID RANITIDINE H CL 60944800600 No Longer Active Uriel BOYD Active BENZACLIN 1-5 % GEL apply to skin BID prn for acne 201 05/05/14 CLINDAMYCIN PHOS-BENZOYL PEROX 97676688864 No Longer Active Uriel BOYD Active BENZACLIN 1-5 % GEL apply to skin BID prn for acne 201 05/05/14 BENZACLIN 1-5 % GEL 198195 CLINDAMYCIN PHOS-BENZOYL PEROX Inactive MINOCYCLINE HCL 100 MG CAPS take one po BID MINOCYCLINE HCL 100 MG CAPS 888690 MINOCYCLINE HCL Inactive CLINDAMYCIN PHOSPHATE 2 % CREA apply cream to acne BID prn 06/14 CLINDAMYCIN PHOSPHATE 2 % CREA 947560 CLINDAMYCIN PHOSP HATE Inactive ULTRAM 50 MG TAB take 1 tab po q 6 hrs prn headache pain ULTRAM 50 MG TAB 578415 TRAMADOL HCL Inactive CYANOCOBALAMIN 1000 MCG/ML INJ SOLN 1 injection weekly for 1 month, than 1 a month for 2 months. recheck lab CYANOCOB ALAMIN 1000 MCG/ML INJ SOLN 976016 CYANOCOBALAMIN Inactive CITALOPRAM HYDROBROMIDE 20 MG ORAL TABS take 1 tab po qday for depresion and anxiety. CITALOPRAM HYDROBROMIDE 20 MG ORAL TABS 2 94840 CITALOPRAM HYDROBROMIDE Inactive PROZAC 10 MG CAP Take 1 tab daily for 1 week. Then increa se to 20mg daily. PROZAC 10 MG CAP 334228 FLUOXETINE HCL Inactive ZANTAC 75 75 MG TABS take 1 po BID ZANTAC 75 75 MG TABS 057359 RANITIDINE HCL Inactive PREDNISONE 20 MG TAB 2 tabs daily for 3 days, 1 t ab daily for 3 days, 1/2 tab daily for 2 days PREDNISONE 20 MG TAB 199823 PREDNISON E Inactive ZITHROMAX 250 MG TAB 2 po today, then 1 po q days 2-5 ZITHROMAX 250 MG TAB 337538 AZITHROMYCIN Inactive ZITHROMAX 250 MG TAB 2 po today, then 1 po q days 2-5 ZITHROMAX 250 MG TAB 047177 AZITHROMYCIN Inactive Immunizations Vaccine Administration Date Value [...] - Chem istry sodium, serum 139 mmol/L 032-491 8993/09/06 carbon dioxide, venous blood 25.3 mmol/L 21.0-32 [...] 5.0-8.5 Encounters Code Encounter Date Provider Facility [facility]-[id number] Level 3 Est. Patient 11:35:37 HAND 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 Cale morris [facility]-01211 Level 4 Est. Patient 11:10:55 CDT Hubert [facility]-21002 Level 4 Est. Patient 14:07:40 CDT Hubert [facility]-17538 Level 4 Est. Patient 13:54:09 CDT Adrián dyson MD [facility]-02725 Level 3 Est. Patient 09:22:14 CDT Adrián dyson MD [facility]99692 Level 3 Est. Patient 08:59:31 CDT Adrián dyson MD [facility]76863 Level 3 Est. Patient 11:58:31 CDT Adrián dyson MD [facility] CPT-39569 Level 3 Est. Patient 09:06:35 CDT Adrián dyson MD [facility] CPT-09399 Level 3 Est. Patient 09:18:45 CDT Adrián dyson MD [facility] CPT-00067 Level 3 Est. Patient 09:13:22 CDT Adrián dyson MD [facility] CPT-15098 Level 3 Est. Patient 18:04:31 HAND 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 Adrián dyson MD [facility] CPT-47295 Level 4 Est. Patient 14:00:53 CDT Demie Ahl sriram [facility] CPT-32670 Level 3 Est. Patient 20:00:09 CDT Terry jenkins DO [facility] CPT-74937 Level 3 Est. Patient 08:45:08 CDT Uriel bhatia [facility] CPT-25593 Level 3 Est. Patient 09:09:26 CDT Uriel hintonist [facility] CPT-98588 Level 3 Est. Patient 16:32:31 CDT Adrián dyson MD [facility] CPT-96519 Level 3 Est. Patient 09:35:27 HAND 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 Norman fuentes [facility] CPT-71368 Level 2 Est. Patient 16:51:37 HAND 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 Adrián dyson MD [facility] CPT-01416 Level 3 Est. Patient 10:00:11 HAND 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 Ace Arriaza MD [facility] Procedures Code Procedure Name Date Entry Date Standard Desc ription CPT-05292 First Vx - Ix admin via ID I M or jet injects without counseling by physician 14:18:02 CDT CPT-46002 Gardasil 9 Intramuscular Suspension 1 4:18:02 CDT CPT-J3420 Vitamin B12 1000mcg (Cyanocobalamin) 16:30:23 CDT CPT-04047 Abx/Therapy Injection 16:30:23 CDT CPT-J3420 Vitamin B12 1000mcg (Cyanocobalamin) 16:09:42 CDT CPT-04859 Abx/Therapy Injection 16:09:42 CDT CPT-J3420 Vitamin B12 1000mcg (Cyanocobalamin) 15:22:47 CDT CPT-31258 Abx/Therapy Injection 15:22:47 CDT CPT-J3420 Vitamin B12 1000mcg (Cyanocobalamin) 17:00:35 CDT CPT-04563 Abx/Therapy Injection 17:00:35 CDT CPT-56023 First Vx - Ix admin via ID I M or jet injects without counseling by physician 16:04:17 HAND 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 CPT-43254 Gardasil 9 Intramuscular Suspension 1 6:04:17 HAND 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 CPT-83872 Venipuncture Draw Fee 09:40:26 CDT CPT-36501 [place] [facility] - LAB USE ONLY 09:40:26 CDT 11/30 CPT-56980 CBC with Diff - LAB USE ONLY 09:40:26 CDT 2 CPT-53656 Addl Vx - Ix admin via ID IM or jet injects without counseling by physician 09:40:21 CDT CPT-33732 Menactra Intramuscular Injectable 09:40:21 CDT CPT-41591 Addl Vx - Ix admin via ID IM or jet injects without counseling by physician 09:40:21 CDT CPT-60764 Gardasil 9 Intramuscular Suspension 0 9:40:21 CDT CPT-94182 First Vx - Ix admin via ID I M or jet injects without counseling by physician 09:40:21 CDT CPT-20129 Havrix Intramuscular Suspension 720 EL U /0.5ML 09:40:21 CDT CPT-J2930 Solu Medrol 125 mg (Methyl Prednisolone Sodium Succinate) 09:43:26 CDT CPT-41632 Abx/Therapy Injection 09:43:26 CDT CPT-J2930 Solu Medrol 125 mg (Methyl Prednisolone Sodium Succinate) 09:05:55 CDT CPT-27897 Abx/Therapy Injection 09:05:55 CDT CPT-26306 Venipuncture Draw Fee 14:01:33 CDT CPT-39233 EKG Trac and Interp 11:22:04 CDT CPT-26320 Venipuncture Draw Fee 10:53:35 CDT CPT-J2930 Solu Medrol 125 mg (Methyl Prednisolone Sodium Succinate) 09:29:26 CDT CPT-84304 Abx/Therapy Injection 09:29:26 CDT CPT-Cryo Cryotherapy 16:51:37 HAND 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
--- OUTSIDE RECORDS SUMMARY | 2019-07-22 19:46 | XMS REPORT | Clinical Summary ---
Author Author Yovanny, Clarisa Christopher Organization [facility] Address Unknown Phone Unavailable Allergies, Adverse [...] to acne BID prn 06/14 CLINDAMYCIN PHOSPHATE 90136584677 No Longer Active Adrián Joseph Active MINOCYCLINE HCL 100 MG CAPS take one po BID MINOCYCLINE HCL 13686044892 No Longer Active Adrián Varghese MD Acti ve TRI-SPRINTEC 0.18/0.215/0.25 MG-35 MCG TABS 1 po qd as directed 201 07/04/00 NORGESTIM-ETH ESTRAD TRIPHASIC 22429205438 Active Adrián Varghese MD Active ZITHROMAX 250 MG TAB 2 po today, then 1 po q days 2-5 AZITHROMYCIN 61066085676 No Longer Active Adrián Varghese MD Acti ve ULTRAM 50 MG TAB take 1 tab po q 6 hrs prn headache pain TRAMADOL HCL 50500541703 Active Adrián Varghese MD Active ZITHROMAX 250 MG TAB 2 po today, then 1 po q days 2-5 AZITHROMYCIN 11277247262 No Longer Active Adrián Varghese MD Acti ve PREDNISONE 20 MG TAB 2 tabs daily for 3 days, 1 t ab daily for 3 days, 1/2 tab daily for 2 days PREDNISONE 86227268186 No Longer Active Adrián Varghese MD Active ZANTAC 75 75 MG TABS take 1 po BID RANITIDINE H CL 07181751616 No Longer Active Uriel BOYD Active BENZACLIN 1-5 % GEL apply to skin BID prn for acne 201 05/05/14 CLINDAMYCIN PHOS-BENZOYL PEROX 30394763929 No Longer Active Uriel BOYD Active BENZACLIN 1-5 % GEL apply to skin BID prn for acne 201 05/05/14 BENZACLIN 1-5 % GEL 833017 CLINDAMYCIN PHOS-BENZOYL PEROX Inactive MINOCYCLINE HCL 100 MG CAPS take one po BID MINOCYCLINE HCL 100 MG CAPS 869308 MINOCYCLINE HCL Inactive CLINDAMYCIN PHOSPHATE 2 % CREA apply cream to acne BID prn 06/14 CLINDAMYCIN PHOSPHATE 2 % CREA 673014 CLINDAMYCIN PHOSP HATE Inactive ZANTAC 75 75 MG TABS take 1 po BID ZANTAC 75 75 MG TABS 207494 RANITIDINE HCL Inactive PREDNISONE 20 MG TAB 2 tabs daily for 3 days, 1 t ab daily for 3 days, 1/2 tab daily for 2 days PREDNISONE 20 MG TAB 518819 PREDNISON E Inactive ZITHROMAX 250 MG TAB 2 po today, then 1 po q days 2-5 ZITHROMAX 250 MG TAB 0547683 AZITHROMYCIN Inactive ZITHROMAX 250 MG TAB 2 po today, then 1 po q days 2-5 ZITHROMAX 250 MG TAB 0780601 AZITHROMYCIN Inactive Immunizations Vaccine Administration Date Value [...] 142-424 Encounters Code Encounter Date Provider Facility CPT-18400 Level 3 Est. Patient 09:22:14 CDT Adrián dyson MD [facility] CPT-84158 Level 3 Est. Patient 08:59:31 CDT Adrián dyson MD [facility] CPT-33329 Level 3 Est. Patient 11:58:31 CDT Adrián dyson MD [facility] CPT-46614 Level 3 Est. Patient 09:06:35 CDT Adrián dyson MD [facility] CPT-94662 Level 3 Est. Patient 09:18:45 CDT Adrián dyson MD [facility] CPT-55180 Level 3 Est. Patient 09:13:22 CDT Adrián dyson MD [facility] CPT-97548 Level 3 Est. Patient 18:04:31 SUPPLY CHAIN ASSOCIATE Adrián dyson MD [facility] CPT-92492 Level 4 Est. Patient 14:00:53 CDT Uriel bhatia [facility] CPT-09185 Level 3 Est. Patient 20:00:09 CDT Terry jenkins DO [facility] CPT-76401 Level 3 Est. Patient 08:45:08 CDT Uriel bhatia [facility] CPT-17345 Level 3 Est. Patient 09:09:26 CDT Uriel bhatia [facility] CPT-80009 Level 3 Est. Patient 16:32:31 CDT Adrián dyson MD [facility] CPT-04871 Level 3 Est. Patient 09:35:27 SUPPLY CHAIN ASSOCIATE Norman fuentes [facility] CPT-19316 Level 2 Est. Patient 16:51:37 SUPPLY CHAIN ASSOCIATE Adrián dyson MD [facility] CPT-45663 Level 3 Est. Patient 10:00:11 SUPPLY CHAIN ASSOCIATE Ace Arriaza MD [facility] Procedures Code Procedure Name Date Entry Date Standard Desc ription CPT-21106 Venipuncture Draw Fee 09:40:26 CDT CPT-33251 [facility] - LAB USE ONLY 09:40:26 CDT 11/30 CPT-98486 CBC with Diff - LAB USE ONLY 09:40:26 CDT 2 CPT-61450 Addl Vx - Ix admin via ID IM or jet injects without counseling by physician 09:40:21 CDT CPT-44981 Menactra Intramuscular Injectable 09:40:21 CDT CPT-17779 Addl Vx - Ix admin via ID IM or jet injects without counseling by physician 09:40:21 CDT CPT-35558 Gardasil 9 Intramuscular Suspension 0 9:40:21 CDT CPT-83271 First Vx - Ix admin via ID I M or jet injects without counseling by physician 09:40:21 CDT CPT-74319 Havrix Intramuscular Suspension 720 EL U /0.5ML 09:40:21 CDT CPT-J2930 Solu Medrol 125 mg (Methyl Prednisolone Sodium Succinate) 09:43:26 CDT CPT-54902 Abx/Therapy Injection 09:43:26 CDT CPT-J2930 Solu Medrol 125 mg (Methyl Prednisolone Sodium Succinate) 09:05:55 CDT CPT-99449 Abx/Therapy Injection 09:05:55 CDT CPT-37923 Venipuncture Draw Fee 14:01:33 CDT CPT-34598 EKG Trac and Interp 11:22:04 CDT CPT-19392 Venipuncture Draw Fee 10:53:35 CDT CPT-J2930 Solu Medrol 125 mg (Methyl Prednisolone Sodium Succinate) 09:29:26 CDT CPT-22556 Abx/Therapy Injection 09:29:26 CDT CPT-Cryo Cryotherapy 16:51:37 SUPPLY CHAIN ASSOCIATE
--- OUTSIDE RECORDS SUMMARY | 2019-07-22 19:47 | XMS REPORT | Clinical Summary ---
[...] Start Date Stop Date Generic Name [facility] Status Provider Patient Instruction CLINDAMYCIN PHOSPHATE 2 % CREA apply cream to acne BID prn 06/14 CLINDAMYCIN PHOSPHATE 12471149272 No Longer Active Adrián Joseph Active MINOCYCLINE HCL 100 MG CAPS take one po BID MINOCYCLINE HCL 34418952543 No Longer Active Adrián Varghese MD Acti ve TRI-SPRINTEC 0.18/0.215/0.25 MG-35 MCG TABS 1 po qd as directed 201 07/04/00 NORGESTIM-ETH ESTRAD TRIPHASIC 19082368727 Active Adrián Varghese MD Active ZITHROMAX 250 MG TAB 2 po today, then 1 po q days 2-5 AZITHROMYCIN 97338350955 No Longer Active Adrián Varghese MD Acti ve ULTRAM 50 MG TAB take 1 tab po q 6 hrs prn headache pain TRAMADOL HCL 20163118890 Active Adrián Varghese MD Active ZITHROMAX 250 MG TAB 2 po today, then 1 po q days 2-5 AZITHROMYCIN 47835409709 No Longer Active Adrián Varghese MD Acti ve PREDNISONE 20 MG TAB 2 tabs daily for 3 days, 1 t ab daily for 3 days, 1/2 tab daily for 2 days PREDNISONE 71368777501 No Longer Active Adrián Varghese MD Active ZANTAC 75 75 MG TABS take 1 po BID RANITIDINE H CL 12912459734 No Longer Active Uriel BOYD Active BENZACLIN 1-5 % GEL apply to skin BID prn for acne 201 05/05/14 CLINDAMYCIN PHOS-BENZOYL PEROX 37785588057 No Longer Active Uriel BOYD Active BENZACLIN 1-5 % GEL apply to skin BID prn for acne 201 05/05/14 BENZACLIN 1-5 % GEL 468440 CLINDAMYCIN PHOS-BENZOYL PEROX Inactive MINOCYCLINE HCL 100 MG CAPS take one po BID MINOCYCLINE HCL 100 MG CAPS 659540 MINOCYCLINE HCL Inactive CLINDAMYCIN PHOSPHATE 2 % CREA apply cream to acne BID prn 06/14 CLINDAMYCIN PHOSPHATE 2 % CREA 300392 CLINDAMYCIN PHOSP HATE Inactive ZANTAC 75 75 MG TABS take 1 po BID ZANTAC 75 75 MG TABS 978914 RANITIDINE HCL Inactive PREDNISONE 20 MG TAB 2 tabs daily for 3 days, 1 t ab daily for 3 days, 1/2 tab daily for 2 days PREDNISONE 20 MG TAB 752891 PREDNISON E Inactive ZITHROMAX 250 MG TAB 2 po today, then 1 po q days 2-5 ZITHROMAX 250 MG TAB 8078070 AZITHROMYCIN Inactive ZITHROMAX 250 MG TAB 2 po today, then 1 po q days 2-5 ZITHROMAX 250 MG TAB 7976884 AZITHROMYCIN Inactive Immunizations Vaccine Administration Date Value [...] Measured Encounters Code Encounter Date Provider Facility CPT-48472 Level 3 Est. Patient 08:59:31 CDT Adrián dyson MD [facility] CPT-23856 Level 3 Est. Patient 11:58:31 CDT Adrián dyson MD [facility] CPT-26221 Level 3 Est. Patient 09:06:35 CDT Adrián dyson MD [facility] CPT-23669 Level 3 Est. Patient 09:18:45 CDT Adrián dyson MD [facility] CPT-05547 Level 3 Est. Patient 09:13:22 CDT Adrián dyson MD [facility] CPT-34796 Level 3 Est. Patient 18:04:31 RECYCLING COORDINATOR Adrián dyson MD [facility] CPT-49213 Level 4 Est. Patient 14:00:53 CDT Uriel bhatia [facility] CPT-09072 Level 3 Est. Patient 20:00:09 CDT Terry jenkisn DO [facility] CPT-29010 Level 3 Est. Patient 08:45:08 CDT Uriel Ramirezclarissa bhatia [facility] CPT-57996 Level 3 Est. Patient 09:09:26 CDT Richcristian Ashleyclarissa bhatia [facility] CPT-61258 Level 3 Est. Patient 16:32:31 CDT Adrián dyson MD [facility] CPT-65705 Level 3 Est. Patient 09:35:27 RECYCLING COORDINATOR Norman fuentes [facility] CPT-72199 Level 2 Est. Patient 16:51:37 RECYCLING COORDINATOR Adrián dyson MD [facility] CPT-03719 Level 3 Est. Patient 10:00:11 RECYCLING COORDINATOR Ace Arriaza MD [facility] Procedures Code Procedure Name Date Entry Date Standard Desc ription CPT-31686 Addl Vx - Ix admin via ID IM or jet injects without counseling by physician 09:40:21 CDT CPT-39307 Menactra Intramuscular Injectable 09:40:21 CDT CPT-30631 Addl Vx - Ix admin via ID IM or jet injects without counseling by physician 09:40:21 CDT CPT-11070 Gardasil 9 Intramuscular Suspension 0 9:40:21 CDT CPT-16522 First Vx - Ix admin via ID I M or jet injects without counseling by physician 09:40:21 CDT CPT-57992 Havrix Intramuscular Suspension 720 EL U /0.5ML 09:40:21 CDT CPT-J2930 Solu Medrol 125 mg (Methyl Prednisolone Sodium Succinate) 09:43:26 CDT CPT-07545 Abx/Therapy Injection 09:43:26 CDT CPT-J2930 Solu Medrol 125 mg (Methyl Prednisolone Sodium Succinate) 09:05:55 CDT CPT-48998 Abx/Therapy Injection 09:05:55 CDT CPT-30023 Venipuncture Draw Fee 14:01:33 CDT CPT-55801 EKG Trac and Interp 11:22:04 CDT CPT-68271 Venipuncture Draw Fee 10:53:35 CDT CPT-J2930 Solu Medrol 125 mg (Methyl Prednisolone Sodium Succinate) 09:29:26 CDT CPT-08161 Abx/Therapy Injection 09:29:26 CDT CPT-Cryo Cryotherapy 16:51:37 RECYCLING COORDINATOR
--- OUTSIDE RECORDS SUMMARY | 2019-07-22 19:47 | XMS REPORT | Clinical Summary ---
Author Author Yovanny, Clarisa Christopher Organization [facility] Address Unknown Phone Unavailable Allergies, Adverse [...] Q 6 HRS PRN HEADACHE TRAMADOL HCL 11945686140 Active Adrián Varghese MD Active CYANOCOBALAMIN 1000 MCG/ML INJ SOLN 1 injection weekly for 1 month, than 1 a month for 2 months. recheck lab CYANOCOBALAMIN 82076166278 Active Samreen Cristo Active CITALOPRAM HYDROBROMIDE 20 MG ORAL TABS take 1 tab po qday for depresion and anxiety. CITALOPRAM HYDROBROMIDE 38032248800 Active dArián Varghese MD Active ULTRAM 50 MG TAB take 1 tab po q 6 hrs prn headache pain TRAMADOL HCL 12882809372 No Longer Active Adrián Varghese MD Acti ve CLINDAMYCIN PHOSPHATE 2 % CREA apply cream to acne BID prn 06/14 CLINDAMYCIN PHOSPHATE 96977517380 No Longer Active Adrián Joseph Active MINOCYCLINE HCL 100 MG CAPS take one po BID MINOCYCLINE HCL 82352742801 No Longer Active Adrián Varghese MD Acti ve TRI-SPRINTEC 0.18/0.215/0.25 MG-35 MCG TABS 1 po qd as directed 201 07/04/00 NORGESTIM-ETH ESTRAD TRIPHASIC 88310191486 Active Adrián Varghese MD Active ZITHROMAX 250 MG TAB 2 po today, then 1 po q days 2-5 AZITHROMYCIN 27271759139 No Longer Active Adrián Varghese MD Acti ve ZITHROMAX 250 MG TAB 2 po today, then 1 po q days 2-5 AZITHROMYCIN 89792969180 No Longer Active Adrián Varghese MD Acti ve PREDNISONE 20 MG TAB 2 tabs daily for 3 days, 1 t ab daily for 3 days, 1/2 tab daily for 2 days PREDNISONE 55633713872 No Longer Active Adrián Varghese MD Active ZANTAC 75 75 MG TABS take 1 po BID RANITIDINE H CL 27883043233 No Longer Active Uriel BOYD Active BENZACLIN 1-5 % GEL apply to skin BID prn for acne 201 05/05/14 CLINDAMYCIN PHOS-BENZOYL PEROX 82955410286 No Longer Active Uriel BOYD Active BENZACLIN 1-5 % GEL apply to skin BID prn for acne 201 05/05/14 BENZACLIN 1-5 % GEL 703562 CLINDAMYCIN PHOS-BENZOYL PEROX Inactive MINOCYCLINE HCL 100 MG CAPS take one po BID MINOCYCLINE HCL 100 MG CAPS 270265 MINOCYCLINE HCL Inactive CLINDAMYCIN PHOSPHATE 2 % CREA apply cream to acne BID prn 06/14 CLINDAMYCIN PHOSPHATE 2 % CREA 310221 CLINDAMYCIN PHOSP HATE Inactive ULTRAM 50 MG TAB take 1 tab po q 6 hrs prn headache pain ULTRAM 50 MG TAB 588792 TRAMADOL HCL Inactive ZANTAC 75 75 MG TABS take 1 po BID ZANTAC 75 75 MG TABS 400507 RANITIDINE HCL Inactive PREDNISONE 20 MG TAB 2 tabs daily for 3 days, 1 t ab daily for 3 days, 1/2 tab daily for 2 days PREDNISONE 20 MG TAB 419236 PREDNISON E Inactive ZITHROMAX 250 MG TAB 2 po today, then 1 po q days 2-5 ZITHROMAX 250 MG TAB 3216929 AZITHROMYCIN Inactive ZITHROMAX 250 MG TAB 2 po today, then 1 po q days 2-5 ZITHROMAX 250 MG TAB 7081619 AZITHROMYCIN Inactive Immunizations Vaccine Administration Date Value [...] [phone] Encounters Code Encounter Date Provider Facility CPT-09879 Level 4 Est. Patient 13:54:09 CDT Adrián dyson MD [facility] CPT-21878 Level 3 Est. Patient 09:22:14 CDT Adrián dyson MD [facility]01[facility] Level 3 Est. Patient 08:59:31 CDT Adráin dyson MD [facility]15091 Level 3 Est. Patient 11:58:31 CDT Adrián dyson MD [facility] CPT-58844 Level 3 Est. Patient 09:06:35 CDT Adrián dyson MD [facility] CPT-16536 Level 3 Est. Patient 09:18:45 CDT Adrián dyson MD [facility] CPT-73734 Level 3 Est. Patient 09:13:22 CDT Adráin dyson MD [facility] CPT-56750 Level 3 Est. Patient 18:04:31 ORNAMENTAL IRON WORKER HELPER Adrián dyson MD [facility] CPT-60394 Level 4 Est. Patient 14:00:53 CDT Uriel bhatia [facility] CPT-40996 Level 3 Est. Patient 20:00:09 CDT Terry jenkins DO [facility] CPT-19202 Level 3 Est. Patient 08:45:08 CDT Uriel bhatia [facility] CPT-03152 Level 3 Est. Patient 09:09:26 CDT Uriel bhatia [facility]-88424 Level 3 Est. Patient 16:32:31 CDT Adrián dyson MD [facility] CPT-52536 Level 3 Est. Patient 09:35:27 ORNAMENTAL IRON WORKER HELPER Norman BOYD [facility] CPT-41915 Level 2 Est. Patient 16:51:37 ORNAMENTAL IRON WORKER HELPER Adrián dyson MD [facility] CPT-01999 Level 3 Est. Patient 10:00:11 ORNAMENTAL IRON WORKER HELPER Ace Arriaza MD [facility] Procedures Code Procedure Name Date Entry Date Standard Desc ription CPT-70587 First Vx - Ix admin via ID I M or jet injects without counseling by physician 14:18:02 CDT CPT-18988 Gardasil 9 Intramuscular Suspension 1 4:18:02 CDT CPT-J3420 Vitamin B12 1000mcg (Cyanocobalamin) 16:30:23 CDT CPT-54088 Abx/Therapy Injection 16:30:23 CDT CPT-J3420 Vitamin B12 1000mcg (Cyanocobalamin) 16:09:42 CDT CPT-17144 Abx/Therapy Injection 16:09:42 CDT CPT-J3420 Vitamin B12 1000mcg (Cyanocobalamin) 15:22:47 CDT CPT-59081 Abx/Therapy Injection 15:22:47 CDT CPT-J3420 Vitamin B12 1000mcg (Cyanocobalamin) 17:00:35 CDT CPT-02618 Abx/Therapy Injection 17:00:35 CDT CPT-39407 First Vx - Ix admin via ID I M or jet injects without counseling by physician 16:04:17 ORNAMENTAL IRON WORKER HELPER CPT-57149 Gardasil 9 Intramuscular Suspension 1 6:04:17 ORNAMENTAL IRON WORKER HELPER CPT-44485 Venipuncture Draw Fee 09:40:26 CDT CPT-82841 [place] [facility] - LAB USE ONLY 09:40:26 CDT 11/30 CPT-87089 CBC with Diff - LAB USE ONLY 09:40:26 CDT 2 CPT-71620 Addl Vx - Ix admin via ID IM or jet injects without counseling by physician 09:40:21 CDT CPT-79049 Menactra Intramuscular Injectable 09:40:21 CDT CPT-75007 Addl Vx - Ix admin via ID IM or jet injects without counseling by physician 09:40:21 CDT CPT-07752 Gardasil 9 Intramuscular Suspension 0 9:40:21 CDT CPT-98608 First Vx - Ix admin via ID I M or jet injects without counseling by physician 09:40:21 CDT CPT-46726 Havrix Intramuscular Suspension 720 EL U /0.5ML 09:40:21 CDT CPT-J2930 Solu Medrol 125 mg (Methyl Prednisolone Sodium Succinate) 09:43:26 CDT CPT-65246 Abx/Therapy Injection 09:43:26 CDT CPT-J2930 Solu Medrol 125 mg (Methyl Prednisolone Sodium Succinate) 09:05:55 CDT CPT-88596 Abx/Therapy Injection 09:05:55 CDT CPT-32973 Venipuncture Draw Fee 14:01:33 CDT CPT-74809 EKG Trac and Interp 11:22:04 CDT CPT-36551 Venipuncture Draw Fee 10:53:35 CDT CPT-J2930 Solu Medrol 125 mg (Methyl Prednisolone Sodium Succinate) 09:29:26 CDT CPT-02498 Abx/Therapy Injection 09:29:26 CDT CPT-Cryo Cryotherapy 16:51:37 ORNAMENTAL IRON WORKER HELPER
--- OUTSIDE RECORDS SUMMARY | 2019-07-22 19:47 | XMS REPORT | Clinical Summary ---
[...] twice daily, for anxiety 2016 BUSPIRONE HCL 03209575974 Active Shannan Gibbs APRN Active PROZAC 20 MG CAP Take 1 tab daily. FLUOXETINE HCL 95818513899 Active Shannan Gibbs APRN Active PROZAC 10 MG CAP Take 1 tab daily for 1 week. Then increa se to 20mg daily. FLUOXETINE HCL 48426630017 Active Sahnnan Gibbs APRN Active CITALOPRAM HYDROBROMIDE 20 MG ORAL TABS take 1 tab po qday for depresion and anxiety. CITALOPRAM HYDROBROMIDE 54877670276 No L onger Active Shannan Gibbs APRN Active CYANOCOBALAMIN 1000 MCG/ML INJ SOLN 1 injection weekly for 1 month, than 1 a month for 2 months. recheck lab CYANOCOBALAMIN 98593983541 No Longer Active Shannan Gibbs APRN Active ULTRAM 50 MG TAB 1 TAB PO Q 6 HRS PRN HEADACHE TRAMADOL HCL 02712682850 Active Adrián Varghese MD Active ULTRAM 50 MG TAB take 1 tab po q 6 hrs prn headache pain TRAMADOL HCL 77870262577 No Longer Active Adrián Varghese MD Acti ve CLINDAMYCIN PHOSPHATE 2 % CREA apply cream to acne BID prn 06/14 CLINDAMYCIN PHOSPHATE 21864042479 No Longer Active Adrián Joseph Active MINOCYCLINE HCL 100 MG CAPS take one po BID MINOCYCLINE HCL 45805962898 No Longer Active Adrián Varghese MD Acti ve TRI-SPRINTEC 0.18/0.215/0.25 MG-35 MCG TABS 1 po qd as directed 201 07/04/00 NORGESTIM-ETH ESTRAD TRIPHASIC 20020376412 Active Shannan Gibbs HISTOLOGY TECH Active ZITHROMAX 250 MG TAB 2 po today, then 1 po q days 2-5 AZITHROMYCIN 19973046085 No Longer Active Adrián Varghese MD Acti ve ZITHROMAX 250 MG TAB 2 po today, then 1 po q days 2-5 AZITHROMYCIN 29585913195 No Longer Active Adrián Varghese MD Acti ve PREDNISONE 20 MG TAB 2 tabs daily for 3 days, 1 t ab daily for 3 days, 1/2 tab daily for 2 days PREDNISONE 45538310947 No Longer Active Adrián Varghese MD Active ZANTAC 75 75 MG TABS take 1 po BID RANITIDINE H CL 48120011351 No Longer Active Uriel BOYD Active BENZACLIN 1-5 % GEL apply to skin BID prn for acne 201 05/05/14 CLINDAMYCIN PHOS-BENZOYL PEROX 38250588069 No Longer Active Uriel BOYD Active BENZACLIN 1-5 % GEL apply to skin BID prn for acne 201 05/05/14 BENZACLIN 1-5 % GEL 068481 CLINDAMYCIN PHOS-BENZOYL PEROX Inactive MINOCYCLINE HCL 100 MG CAPS take one po BID MINOCYCLINE HCL 100 MG CAPS 629426 MINOCYCLINE HCL Inactive CLINDAMYCIN PHOSPHATE 2 % CREA apply cream to acne BID prn 06/14 CLINDAMYCIN PHOSPHATE 2 % CREA 733258 CLINDAMYCIN PHOSP HATE Inactive ULTRAM 50 MG TAB take 1 tab po q 6 hrs prn headache pain ULTRAM 50 MG TAB 931285 TRAMADOL HCL Inactive CYANOCOBALAMIN 1000 MCG/ML INJ SOLN 1 injection weekly for 1 month, than 1 a month for 2 months. recheck lab CYANOCOB ALAMIN 1000 MCG/ML INJ SOLN 822029 CYANOCOBALAMIN Inactive CITALOPRAM HYDROBROMIDE 20 MG ORAL TABS take 1 tab po qday for depresion and anxiety. CITALOPRAM HYDROBROMIDE 20 MG ORAL TABS 2 00006 CITALOPRAM HYDROBROMIDE Inactive ZANTAC 75 75 MG TABS take 1 po BID ZANTAC 75 75 MG TABS 554891 RANITIDINE HCL Inactive PREDNISONE 20 MG TAB 2 tabs daily for 3 days, 1 t ab daily for 3 days, 1/2 tab daily for 2 days PREDNISONE 20 MG TAB 807908 PREDNISON E Inactive ZITHROMAX 250 MG TAB 2 po today, then 1 po q days 2-5 ZITHROMAX 250 MG TAB 250751 AZITHROMYCIN Inactive ZITHROMAX 250 MG TAB 2 po today, then 1 po q days 2-5 ZITHROMAX 250 MG TAB 155053 AZITHROMYCIN Inactive Immunizations Vaccine Administration Date Value [...] formulation oral polio vaccine (OPV) #3 Historical dacrie ovirus vaccine, unspecified formulation hepatitis B vaccine [...] - Chem istry sodium, serum 139 mmol/L 078-831 4361/09/06 carbon dioxide, venous blood 25.3 mmol/L 21.0-32 [...] 0.20-1.00 Encounters Code Encounter Date Provider Facility CPT-79202 Level 4 Est. Patient 14:07:40 CDT Hubert WARD [facility] CPT-46720 Level 4 Est. Patient 13:54:09 CDT Adrián dyson MD [facility] CPT-48580 Level 3 Est. Patient 09:22:14 CDT Adrián dyson MD [facility] CPT-92446 Level 3 Est. Patient 08:59:31 CDT Adrián dyson MD [facility] CPT-78867 Level 3 Est. Patient 11:58:31 CDT Adrián dyson MD [facility] CPT-75667 Level 3 Est. Patient 09:06:35 CDT Adrián dyson MD [facility] CPT-03958 Level 3 Est. Patient 09:18:45 CDT Adrián dyson MD [facility] CPT-88137 Level 3 Est. Patient 09:13:22 CDT Adrián dyson MD [facility] CPT-32997 Level 3 Est. Patient 18:04:31 IMAGING NURSE Adrián dyson MD [facility] CPT-74380 Level 4 Est. Patient 14:00:53 CDT Uriel BOYD [facility] CPT-78356 Level 3 Est. Patient 20:00:09 CDT Terry jenkins DO [facility] CPT-68211 Level 3 Est. Patient 08:45:08 CDT Uriel bhatia [facility] CPT-06897 Level 3 Est. Patient 09:09:26 CDT Uriel bhatia [facility] CPT-32738 Level 3 Est. Patient 16:32:31 CDT Adrián dyson MD [facility] CPT-66941 Level 3 Est. Patient 09:35:27 IMAGING NURSE Norman fuentes [facility] CPT-74522 Level 2 Est. Patient 16:51:37 IMAGING NURSE Adrián dyson MD [facility] CPT-40263 Level 3 Est. Patient 10:00:11 IMAGING NURSE Ace Arriaza MD [facility] Procedures Code Procedure Name Date Entry Date Standard Desc ription CPT-04995 First Vx - Ix admin via ID I M or jet injects without counseling by physician 14:18:02 CDT CPT-45187 Gardasil 9 Intramuscular Suspension 1 4:18:02 CDT CPT-J3420 Vitamin B12 1000mcg (Cyanocobalamin) 16:30:23 CDT CPT-12781 Abx/Therapy Injection 16:30:23 CDT CPT-J3420 Vitamin B12 1000mcg (Cyanocobalamin) 16:09:42 CDT CPT-75881 Abx/Therapy Injection 16:09:42 CDT CPT-J3420 Vitamin B12 1000mcg (Cyanocobalamin) 15:22:47 CDT CPT-70874 Abx/Therapy Injection 15:22:47 CDT CPT-J3420 Vitamin B12 1000mcg (Cyanocobalamin) 17:00:35 CDT CPT-54200 Abx/Therapy Injection 17:00:35 CDT CPT-88387 First Vx - Ix admin via ID I M or jet injects without counseling by physician 16:04:17 IMAGING NURSE CPT-44189 Gardasil 9 Intramuscular Suspension 1 6:04:17 IMAGING NURSE CPT-82691 Venipuncture Draw Fee 09:40:26 CDT CPT-79712 [place] [facility] - LAB USE ONLY 09:40:26 CDT 11/30 CPT-71249 CBC with Diff - LAB USE ONLY 09:40:26 CDT 2 CPT-54530 Addl Vx - Ix admin via ID IM or jet injects without counseling by physician 09:40:21 CDT CPT-37659 Menactra Intramuscular Injectable 09:40:21 CDT CPT-54935 Addl Vx - Ix admin via ID IM or jet injects without counseling by physician 09:40:21 CDT CPT-54889 Gardasil 9 Intramuscular Suspension 0 9:40:21 CDT CPT-39031 First Vx - Ix admin via ID I M or jet injects without counseling by physician 09:40:21 CDT CPT-34947 Havrix Intramuscular Suspension 720 EL U /0.5ML 09:40:21 CDT CPT-J2930 Solu Medrol 125 mg (Methyl Prednisolone Sodium Succinate) 09:43:26 CDT CPT-12170 Abx/Therapy Injection 09:43:26 CDT CPT-J2930 Solu Medrol 125 mg (Methyl Prednisolone Sodium Succinate) 09:05:55 CDT CPT-95289 Abx/Therapy Injection 09:05:55 CDT CPT-34281 Venipuncture Draw Fee 14:01:33 CDT CPT-74859 EKG Trac and Interp 11:22:04 CDT CPT-45196 Venipuncture Draw Fee 10:53:35 CDT CPT-J2930 Solu Medrol 125 mg (Methyl Prednisolone Sodium Succinate) 09:29:26 CDT CPT-01272 Abx/Therapy Injection 09:29:26 CDT CPT-Cryo Cryotherapy 16:51:37 IMAGING NURSE
--- OUTSIDE RECORDS SUMMARY | 2019-07-22 19:47 | XMS REPORT | Clinical Summary ---
Author Author Yovanny, Clarisa Christopher Organization [facility] Address Unknown Phone Unavailable Allergies, Adverse [...] month for 2 months. recheck lab CYANOCOBALAMIN 35204787225 Active Samreen Raida Active CITALOPRAM HYDROBROMIDE 20 MG ORAL TABS take 1 tab po qday for depresion and anxiety. CITALOPRAM HYDROBROMIDE 06424196840 Active Adrián Varghese MD Active ULTRAM 50 MG TAB take 1 tab po q 6 hrs prn headache pain TRAMADOL HCL 72579674901 No Longer Active Adrián Varghese MD Acti ve CLINDAMYCIN PHOSPHATE 2 % CREA apply cream to acne BID prn 06/14 CLINDAMYCIN PHOSPHATE 50303780536 No Longer Active Adrián Joseph Active MINOCYCLINE HCL 100 MG CAPS take one po BID MINOCYCLINE HCL 97723513830 No Longer Active Adrián Varghese MD Acti ve TRI-SPRINTEC 0.18/0.215/0.25 MG-35 MCG TABS 1 po qd as directed 201 07/04/00 NORGESTIM-ETH ESTRAD TRIPHASIC 23259893744 Active Adrián Varghese MD Active ZITHROMAX 250 MG TAB 2 po today, then 1 po q days 2-5 AZITHROMYCIN 21829117120 No Longer Active Adrián Varghese MD Acti ve ZITHROMAX 250 MG TAB 2 po today, then 1 po q days 2-5 AZITHROMYCIN 41003959123 No Longer Active Adrián Varghese MD Acti ve PREDNISONE 20 MG TAB 2 tabs daily for 3 days, 1 t ab daily for 3 days, 1/2 tab daily for 2 days PREDNISONE 05188898722 No Longer Active Adrián Varghese MD Active ZANTAC 75 75 MG TABS take 1 po BID RANITIDINE H CL 08627998248 No Longer Active Uriel BOYD Active BENZACLIN 1-5 % GEL apply to skin BID prn for acne 201 05/05/14 CLINDAMYCIN PHOS-BENZOYL PEROX 20403769528 No Longer Active Uriel BOYD Active BENZACLIN 1-5 % GEL apply to skin BID prn for acne 201 05/05/14 BENZACLIN 1-5 % GEL 444054 CLINDAMYCIN PHOS-BENZOYL PEROX Inactive MINOCYCLINE HCL 100 MG CAPS take one po BID MINOCYCLINE HCL 100 MG CAPS 436382 MINOCYCLINE HCL Inactive CLINDAMYCIN PHOSPHATE 2 % CREA apply cream to acne BID prn 06/14 CLINDAMYCIN PHOSPHATE 2 % CREA 858767 CLINDAMYCIN PHOSP HATE Inactive ULTRAM 50 MG TAB take 1 tab po q 6 hrs prn headache pain ULTRAM 50 MG TAB 423068 TRAMADOL HCL Inactive ZANTAC 75 75 MG TABS take 1 po BID ZANTAC 75 75 MG TABS 328034 RANITIDINE HCL Inactive PREDNISONE 20 MG TAB 2 tabs daily for 3 days, 1 t ab daily for 3 days, 1/2 tab daily for 2 days PREDNISONE 20 MG TAB 280503 PREDNISON E Inactive ZITHROMAX 250 MG TAB 2 po today, then 1 po q days 2-5 ZITHROMAX 250 MG TAB 4141142 AZITHROMYCIN Inactive ZITHROMAX 250 MG TAB 2 po today, then 1 po q days 2-5 ZITHROMAX 250 MG TAB 7258153 AZITHROMYCIN Inactive Immunizations Vaccine Administration Date Value [...] 142-424 Encounters Code Encounter Date Provider Facility CPT-90196 Level 4 Est. Patient 13:54:09 CDT Adrián dyson MD [facility]-56980 Level 3 Est. Patient 09:22:14 CDT Adriná dyson MD [facility]-89746 Level 3 Est. Patient 08:59:31 CDT Adrián dyson MD [facility]-23703 Level 3 Est. Patient 11:58:31 CDT Adrián dyson MD [facility] CPT-26269 Level 3 Est. Patient 09:06:35 CDT Adrián dyson MD [facility] CPT-71364 Level 3 Est. Patient 09:18:45 CDT Adrián dyson MD [facility] CPT-56873 Level 3 Est. Patient 09:13:22 CDT Adrián dyson MD [facility] CPT-10099 Level 3 Est. Patient 18:04:31 STRATEGIC PLANNING ANALYST Adrián dyson MD [facility] CPT-00041 Level 4 Est. Patient 14:00:53 CDT Uriel bhatia [facility] CPT-38789 Level 3 Est. Patient 20:00:09 CDT Terry jenkins DO [facility] CPT-67238 Level 3 Est. Patient 08:45:08 CDT Uriel bhatia [facility]-66686 Level 3 Est. Patient 09:09:26 CDT Uriel bhatia [facility] CPT-44702 Level 3 Est. Patient 16:32:31 CDT Adrián dyson MD [facility]-36698 Level 3 Est. Patient 09:35:27 STRATEGIC PLANNING ANALYST Norman BOYD [facility] CPT-03258 Level 2 Est. Patient 16:51:37 STRATEGIC PLANNING ANALYST Adrián dyson MD [facility] CPT-21571 Level 3 Est. Patient 10:00:11 STRATEGIC PLANNING ANALYST Ace Arriaza MD [facility] Procedures Code Procedure Name Date Entry Date Standard Desc ription CPT-37430 First Vx - Ix admin via ID I M or jet injects without counseling by physician 16:04:17 STRATEGIC PLANNING ANALYST CPT-11188 Gardasil 9 Intramuscular Suspension 1 6:04:17 STRATEGIC PLANNING ANALYST CPT-17877 Venipuncture Draw Fee 09:40:26 CDT CPT-79752 [place] [facility] - LAB USE ONLY 09:40:26 CDT 11/30 CPT-78461 CBC with Diff - LAB USE ONLY 09:40:26 CDT 2 CPT-36490 Addl Vx - Ix admin via ID IM or jet injects without counseling by physician 09:40:21 CDT CPT-22262 Menactra Intramuscular Injectable 09:40:21 CDT CPT-21210 Addl Vx - Ix admin via ID IM or jet injects without counseling by physician 09:40:21 CDT CPT-80933 Gardasil 9 Intramuscular Suspension 0 9:40:21 CDT CPT-58739 First Vx - Ix admin via ID I M or jet injects without counseling by physician 09:40:21 CDT CPT-15613 Havrix Intramuscular Suspension 720 EL U /0.5ML 09:40:21 CDT CPT-J2930 Solu Medrol 125 mg (Methyl Prednisolone Sodium Succinate) 09:43:26 CDT CPT-34618 Abx/Therapy Injection 09:43:26 CDT CPT-J2930 Solu Medrol 125 mg (Methyl Prednisolone Sodium Succinate) 09:05:55 CDT CPT-26092 Abx/Therapy Injection 09:05:55 CDT CPT-11981 Venipuncture Draw Fee 14:01:33 CDT CPT-61701 EKG Trac and Interp 11:22:04 CDT CPT-87923 Venipuncture Draw Fee 10:53:35 CDT CPT-J2930 Solu Medrol 125 mg (Methyl Prednisolone Sodium Succinate) 09:29:26 CDT CPT-01550 Abx/Therapy Injection 09:29:26 CDT CPT-Cryo Cryotherapy 16:51:37 STRATEGIC PLANNING ANALYST
--- OUTSIDE RECORDS SUMMARY | 2019-07-22 19:47 | XMS REPORT | Clinical Summary ---
Author Author Yovanny, Clarisa Christopher Organization [facility] Address Unknown Phone Unavailable Allergies, Adverse [...] twice daily, for anxiety 2016 BUSPIRONE HCL 72600225036 Active Shannan Gibbs APRN Active PROZAC 20 MG CAP Take 1 tab daily. FLUOXETINE HCL 44718370943 Active Shannan Gibbs APRN Active PROZAC 10 MG CAP Take 1 tab daily for 1 week. Then increa se to 20mg daily. FLUOXETINE HCL 92787609600 Active Shannan Gibbs APRN Active CITALOPRAM HYDROBROMIDE 20 MG ORAL TABS take 1 tab po qday for depresion and anxiety. CITALOPRAM HYDROBROMIDE 70204062933 No L onger Active Shannan Gibbs APRN Active CYANOCOBALAMIN 1000 MCG/ML INJ SOLN 1 injection weekly for 1 month, than 1 a month for 2 months. recheck lab CYANOCOBALAMIN 15952475482 No Longer Active Shannan Gibbs APRN Active ULTRAM 50 MG TAB 1 TAB PO Q 6 HRS PRN HEADACHE TRAMADOL HCL 90074326812 Active Adrián Varghese MD Active ULTRAM 50 MG TAB take 1 tab po q 6 hrs prn headache pain TRAMADOL HCL 02509171913 No Longer Active Adrián Varghese MD Acti ve CLINDAMYCIN PHOSPHATE 2 % CREA apply cream to acne BID prn 06/14 CLINDAMYCIN PHOSPHATE 16190656860 No Longer Active Adrián Joseph Active MINOCYCLINE HCL 100 MG CAPS take one po BID MINOCYCLINE HCL 46289385781 No Longer Active Adrián Varghese MD Acti ve TRI-SPRINTEC 0.18/0.215/0.25 MG-35 MCG TABS 1 po qd as directed 201 07/04/00 NORGESTIM-ETH ESTRAD TRIPHASIC 36630434844 Active Adrián Varghese MD Active ZITHROMAX 250 MG TAB 2 po today, then 1 po q days 2-5 AZITHROMYCIN 72747293612 No Longer Active Adrián Varghese MD Acti ve ZITHROMAX 250 MG TAB 2 po today, then 1 po q days 2-5 AZITHROMYCIN 30178909512 No Longer Active Adrián Varghese MD Acti ve PREDNISONE 20 MG TAB 2 tabs daily for 3 days, 1 t ab daily for 3 days, 1/2 tab daily for 2 days PREDNISONE 34460904352 No Longer Active Adrián Varghese MD Active ZANTAC 75 75 MG TABS take 1 po BID RANITIDINE H CL 45821047717 No Longer Active Uriel BOYD Active BENZACLIN 1-5 % GEL apply to skin BID prn for acne 201 05/05/14 CLINDAMYCIN PHOS-BENZOYL PEROX 29103656401 No Longer Active Uriel BOYD Active BENZACLIN 1-5 % GEL apply to skin BID prn for acne 201 05/05/14 BENZACLIN 1-5 % GEL 492400 CLINDAMYCIN PHOS-BENZOYL PEROX Inactive MINOCYCLINE HCL 100 MG CAPS take one po BID MINOCYCLINE HCL 100 MG CAPS 717487 MINOCYCLINE HCL Inactive CLINDAMYCIN PHOSPHATE 2 % CREA apply cream to acne BID prn 06/14 CLINDAMYCIN PHOSPHATE 2 % CREA 476312 CLINDAMYCIN PHOSP HATE Inactive ULTRAM 50 MG TAB take 1 tab po q 6 hrs prn headache pain ULTRAM 50 MG TAB 008055 TRAMADOL HCL Inactive CYANOCOBALAMIN 1000 MCG/ML INJ SOLN 1 injection weekly for 1 month, than 1 a month for 2 months. recheck lab CYANOCOB ALAMIN 1000 MCG/ML INJ SOLN 912166 CYANOCOBALAMIN Inactive CITALOPRAM HYDROBROMIDE 20 MG ORAL TABS take 1 tab po qday for depresion and anxiety. CITALOPRAM HYDROBROMIDE 20 MG ORAL TABS 2 84443 CITALOPRAM HYDROBROMIDE Inactive ZANTAC 75 75 MG TABS take 1 po BID ZANTAC 75 75 MG TABS 905519 RANITIDINE HCL Inactive PREDNISONE 20 MG TAB 2 tabs daily for 3 days, 1 t ab daily for 3 days, 1/2 tab daily for 2 days PREDNISONE 20 MG TAB 663495 PREDNISON E Inactive ZITHROMAX 250 MG TAB 2 po today, then 1 po q days 2-5 ZITHROMAX 250 MG TAB 468425 AZITHROMYCIN Inactive ZITHROMAX 250 MG TAB 2 po today, then 1 po q days 2-5 ZITHROMAX 250 MG TAB 462127 AZITHROMYCIN Inactive Immunizations Vaccine Administration Date Value [...] weight E&M 140 [lb_av] Weight Measure d Diagnostic Results Date [...] - Chem istry sodium, serum 139 mmol/L 828-534 6368/09/06 carbon dioxide, venous blood 25.3 mmol/L 21.0-32 [...] 0.20-1.00 Encounters Code Encounter Date Provider Facility CPT-08975 Level 4 Est. Patient 14:07:40 CDT Shannan Neno erin [facility]-05344 Level 4 Est. Patient 13:54:09 CDT Adrián dyson MD [facility]-93532 Level 3 Est. Patient 09:22:14 CDT Adrián dyson MD [facility]-04069 Level 3 Est. Patient 08:59:31 CDT Adrián dyson MD [facility]-39942 Level 3 Est. Patient 11:58:31 CDT Adrián dyson MD [facility] CPT-35344 Level 3 Est. Patient 09:06:35 CDT Adrián dyson MD [facility] CPT-34678 Level 3 Est. Patient 09:18:45 CDT Adrián dyson MD [facility] CPT-08710 Level 3 Est. Patient 09:13:22 CDT Adrián dyson MD [facility][note 3]-13520 Level 3 Est. Patient 18:04:31 TOOL AND DIE MAKER LEVEL FIVE Adrián dyson MD [facility] CPT-18248 Level 4 Est. Patient 14:00:53 CDT Uriel bhatia [facility] CPT-83731 Level 3 Est. Patient 20:00:09 CDT Terry jenkins DO [facility] CPT-47492 Level 3 Est. Patient 08:45:08 CDT Uriel bhatia [facility]-15619 Level 3 Est. Patient 09:09:26 CDT Uriel bhatia [facility]-30692 Level 3 Est. Patient 16:32:31 CDT Adrián dyson MD [facility] CPT-05483 Level 3 Est. Patient 09:35:27 TOOL AND DIE MAKER LEVEL FIVE Norman BOYD [facility] CPT-20670 Level 2 Est. Patient 16:51:37 TOOL AND DIE MAKER LEVEL FIVE Adrián dyson MD [facility] CPT-09435 Level 3 Est. Patient 10:00:11 TOOL AND DIE MAKER LEVEL FIVE Ace Arriaza MD [facility] Procedures Code Procedure Name Date Entry Date Standard Desc ription CPT-77620 First Vx - Ix admin via ID I M or jet injects without counseling by physician 14:18:02 CDT CPT-82539 Gardasil 9 Intramuscular Suspension 1 4:18:02 CDT CPT-J3420 Vitamin B12 1000mcg (Cyanocobalamin) 16:30:23 CDT CPT-87275 Abx/Therapy Injection 16:30:23 CDT CPT-J3420 Vitamin B12 1000mcg (Cyanocobalamin) 16:09:42 CDT CPT-84587 Abx/Therapy Injection 16:09:42 CDT CPT-J3420 Vitamin B12 1000mcg (Cyanocobalamin) 15:22:47 CDT CPT-33323 Abx/Therapy Injection 15:22:47 CDT CPT-J3420 Vitamin B12 1000mcg (Cyanocobalamin) 17:00:35 CDT CPT-68128 Abx/Therapy Injection 17:00:35 CDT CPT-09257 First Vx - Ix admin via ID I M or jet injects without counseling by physician 16:04:17 TOOL AND DIE MAKER LEVEL FIVE CPT-69867 Gardasil 9 Intramuscular Suspension 1 6:04:17 TOOL AND DIE MAKER LEVEL FIVE CPT-61685 Venipuncture Draw Fee 09:40:26 CDT CPT-22803 [place] [facility] - LAB USE ONLY 09:40:26 CDT 11/30 CPT-48634 CBC with Diff - LAB USE ONLY 09:40:26 CDT 2 CPT-18761 Addl Vx - Ix admin via ID IM or jet injects without counseling by physician 09:40:21 CDT CPT-05455 Menactra Intramuscular Injectable 09:40:21 CDT CPT-36853 Addl Vx - Ix admin via ID IM or jet injects without counseling by physician 09:40:21 CDT CPT-98443 Gardasil 9 Intramuscular Suspension 0 9:40:21 CDT CPT-29623 First Vx - Ix admin via ID I M or jet injects without counseling by physician 09:40:21 CDT CPT-07739 Havrix Intramuscular Suspension 720 EL U /0.5ML 09:40:21 CDT CPT-J2930 Solu Medrol 125 mg (Methyl Prednisolone Sodium Succinate) 09:43:26 CDT CPT-56440 Abx/Therapy Injection 09:43:26 CDT CPT-J2930 Solu Medrol 125 mg (Methyl Prednisolone Sodium Succinate) 09:05:55 CDT CPT-89680 Abx/Therapy Injection 09:05:55 CDT CPT-50134 Venipuncture Draw Fee 14:01:33 CDT CPT-31313 EKG Trac and Interp 11:22:04 CDT CPT-06653 Venipuncture Draw Fee 10:53:35 CDT CPT-J2930 Solu Medrol 125 mg (Methyl Prednisolone Sodium Succinate) 09:29:26 CDT CPT-64644 Abx/Therapy Injection 09:29:26 CDT CPT-Cryo Cryotherapy 16:51:37 TOOL AND DIE MAKER LEVEL FIVE
--- OUTSIDE RECORDS SUMMARY | 2019-07-22 19:48 | XMS REPORT | Clinical Summary ---
Author Author Yovanny, Clarisa Christopher Organization [facility] Address Unknown Phone Allergies, Adverse Reactions, Alerts Allergy Name Reaction [...] Uriel BOYD Other chest pain Pharyngitis-Acute 462 Active Adrián Varghese MD Acute pharyngitis Medication List Medication Instructions Start Date Stop Date Generic Name NDC Status Provider Patient Instruction ZITHROMAX 250 MG TAB 2 po today, then 1 po q days 2-5 AZITHROMYCIN 40512299248 No Longer Active Adrián Varghese MD Acti ve CLINDAMYCIN PHOSPHATE 2 % CREA apply cream to acne BID prn CLINDAMYCIN PHOSPHATE 40093609763 Active Adrián Varghese MD Active PREDNISONE 20 MG TAB 2 tabs daily for 3 days, 1 t ab daily for 3 days, 1/2 tab daily for 2 days PREDNISONE 38824167004 No Longer Active Adrián Varghese MD Active ZANTAC 75 75 MG TABS take 1 po BID RANITIDINE H CL 93916480800 No Longer Active Uriel BOYD Active MINOCYCLINE HCL 100 MG CAPS take one po BID MIN OCYCLINE HCL 22994368473 Active Adrián Varghese MD Active BENZACLIN 1-5 % GEL apply to skin BID prn for acne 201 05/05/14 CLINDAMYCIN PHOS-BENZOYL PEROX 91243655448 No Longer Active Uriel BOYD Active BENZACLIN 1-5 % GEL apply to skin BID prn for acne 201 05/05/14 BENZACLIN 1-5 % GEL 191143 CLINDAMYCIN PHOS-BENZOYL PEROX Inactive ZANTAC 75 75 MG TABS take 1 po BID ZANTAC 75 75 MG TABS 012144 RANITIDINE HCL Inactive PREDNISONE 20 MG TAB 2 tabs daily for 3 days, 1 t ab daily for 3 days, 1/2 tab daily for 2 days PREDNISONE 20 MG TAB 389745 PREDNISON E Inactive ZITHROMAX 250 MG TAB 2 po today, then 1 po q days 2-5 ZITHROMAX 250 MG TAB 8703719 AZITHROMYCIN Inactive Immunizations Vaccine Administration Date Value [...] BP jones blood pressure, systolic - 8480-6 126 mm[Hg] BP sys height E&M - 8302-2 60.25 [in_us] Bdy h eight pulse rate E&M - 8867-4 81 /min H eart rate temperature E&M 97.9 [degF] Body temp erature weight E&M - 3141-9 116 [lb_av] Weigh t Measured blood pressure, diastolic - 8462-4 60 mm[Hg] BP jones blood pressure, systolic - 8480-6 112 mm[Hg] BP sys height E&M - 8302-2 60.25 [in_us] Bdy h eight pulse rate E&M - 8867-4 76 /min H eart rate temperature E&M 97.5 [degF] Body temp erature weight E&M - 3141-9 113 [lb_av] Weigh t Measured blood pressure, diastolic - 8462-4 75 mm[Hg] BP jones blood pressure, systolic - 8480-6 114 mm[Hg] BP sys height E&M - 8302-2 60.25 [in_us] Bdy h eight pulse rate E&M - 8867-4 68 /min H eart rate temperature E&M 98.1 [degF] Body temp erature weight E&M - 3141-9 107 [lb_av] Weigh t Measured blood pressure, diastolic - 8462-4 70 mm[Hg] BP jones blood pressure, systolic - 8480-6 123 mm[Hg] BP sys height E&M - 8302-2 60.25 [in_us] Bdy h eight pulse rate E&M - 8867-4 80 /min H eart rate temperature E&M 98.0 [degF] Body temp erature weight E&M - 3141-9 107.13 [lb_av] Weigh t Measured blood pressure, diastolic - 8462-4 68 mm[Hg] BP jones blood pressure, systolic - 8480-6 108 mm[Hg] BP sys height E&M - 8302-2 60.25 [in_us] Bdy h eight pulse rate E&M - 8867-4 88 /min H eart rate temperature E&M 97.8 [degF] Body temp erature weight E&M - 3141-9 104.38 [lb_av] Weigh t Measured blood pressure, diastolic - 8462-4 73 mm[Hg] BP jones blood pressure, systolic - 8480-6 113 mm[Hg] BP sys height E&M - 8302-2 60.25 [in_us] Bdy h eight pulse rate E&M - 8867-4 76 /min H eart rate temperature E&M 97.1 [degF] Body temp erature weight E&M - 3141-9 103 [lb_av] Weigh t Measured blood pressure, diastolic - 8462-4 71 mm[Hg] BP jones blood pressure, systolic - 8480-6 116 mm[Hg] BP sys height E&M - 8302-2 60.25 [in_us] Bdy h eight pulse rate E&M - 8867-4 73 /min H eart rate temperature E&M 98.5 [degF] Body temp erature weight E&M - 3141-9 104 [lb_av] Weigh t Measured Diagnostic Results Date Name Value Unit Range Description Lab Report: CBC, Comp. Metabolic Panel, Erythrocyte Sed Rate - Chemistry sodium, serum 138 mmol/L 770-909 8406/09/24 potassium, serum 4.2 mmol/L 3.5-5.2 chloride, serum 101 mmol/L 98-107 carbon dioxide, venous blood 27.8 mmol/L 21.0-32 .0 blood glucose 82 mg/dL 65-110 urea nitrogen, blood 11 mg/dL 7-18 creatinine, serum 0.70 mg/dL 0.60-1.30 alanine aminotransferase (SGPT), serum 23 U/L 12-78 aspartate aminotransferase (SGOT), serum 16 U/L 15-37 alkaline phosphatase, serum 178 U/L 50-136 calcium, serum 8.4 mg/dL 8.5-10.1 Lab Report: CBC, Comp. Metabolic Panel, Erythrocyte Sed Rate - Hematology leukocyte count, blood 3.3 10^3/MM^3 10*3/mm3 4.6-10.2 erythrocyte (RBC) count 4.59 10^6/MM^3 10*6/mm3 4.04-5.4 8 hemoglobin, blood 13.3 g/dL 12.0-16.0 hematocrit, blood 40.0 % 36.0-46.0 mean corpuscular volume, RBC 87 fL 80-97 mean corpuscular hemoglobin, RBC 28.8 pg 27. 0-31.2 mean corpuscular hemoglobin concentration, RBC 33.1 G/DL % 31.8-35.4 red blood cell distribution width 13.1 % 11 .6-14.8 platelet count 262 10^3/MM^3 10*3/mm3 142-424 Lab Report: Thyroid Stimulating Hormone (L), Free Thyroxine (L), Myco Pn ... - Chemistry thyroid stimulating hormone, serum 2450 u[iU]/ mL Units converted. See lab report for original value. thyroxine, serum, free 0.84 ng/dL 0.76-1.46 Encounters Code Encounter Date Provider Facility CPT-16106 Level 3 Est. Patient 09:18:45 CDT Adrián dyson MD [facility] CPT-33583 Level 3 Est. Patient 09:13:22 CDT Adrián dyson MD [facility] CPT-30908 Level 3 Est. Patient 18:04:31 SCHOOL CUSTODIAN Adrián dyson MD [facility] CPT-30175 Level 4 Est. Patient 14:00:53 CDT Uriel bhatia [facility] CPT-34466 Level 3 Est. Patient 20:00:09 CDT Terry jenkins DO [facility] CPT-59905 Level 3 Est. Patient 08:45:08 CDT Uriel bhatia [facility] CPT-96399 Level 3 Est. Patient 09:09:26 CDT Uriel bhatia [facility] CPT-68758 Level 3 Est. Patient 16:32:31 CDT Adrián dyson MD [facility] CPT-44125 Level 3 Est. Patient 09:35:27 SCHOOL CUSTODIAN Norman fuentes [facility] CPT-04955 Level 2 Est. Patient 16:51:37 SCHOOL CUSTODIAN Adrián dyson MD [facility] CPT-83435 Level 3 Est. Patient 10:00:11 SCHOOL CUSTODIAN Ace Arriaza MD [facility] Procedures Code Procedure Name Date Entry Date Standard Desc ription CPT-J2930 Solu Medrol 125 mg (Methyl Prednisolone Sodium Succinate) 09:43:26 CDT CPT-28458 Abx/Therapy Injection 09:43:26 CDT CPT-J2930 Solu Medrol 125 mg (Methyl Prednisolone Sodium Succinate) 09:05:55 CDT CPT-32317 Abx/Therapy Injection 09:05:55 CDT CPT-13395 Venipuncture Draw Fee 14:01:33 CDT CPT-25117 EKG Trac and Interp 11:22:04 CDT CPT-53659 Venipuncture Draw Fee 10:53:35 CDT CPT-J2930 Solu Medrol 125 mg (Methyl Prednisolone Sodium Succinate) 09:29:26 CDT CPT-86016 Abx/Therapy Injection 09:29:26 CDT CPT-Cryo Cryotherapy 16:51:37 SCHOOL CUSTODIAN
--- OUTSIDE RECORDS SUMMARY | 2019-07-22 19:48 | XMS REPORT | Clinical Summary ---
Author Author Yovanny, Clarisa Christopher Organization [facility] Address Unknown Phone Unavailable Allergies, Adverse [...] 784.0 Active Adrián Varghese MD Headache Pharyngitis-Acute ICD-462 Inactive Adrián leavitt MD Medication List Medication Instructions Start Date Stop Date Generic Name NDC Status Provider Patient Instruction ULTRAM 50 MG TAB take 1 tab po q 6 hrs prn headache pain TRAMADOL HCL 17046526584 Active Adrián Varghese MD Active ZITHROMAX 250 MG TAB 2 po today, then 1 po q days 2-5 AZITHROMYCIN 37362512152 No Longer Active Adrián Varghese MD Acti ve CLINDAMYCIN PHOSPHATE 2 % CREA apply cream to acne BID prn CLINDAMYCIN PHOSPHATE 63494732920 Active Adrián Varghese MD Active PREDNISONE 20 MG TAB 2 tabs daily for 3 days, 1 t ab daily for 3 days, 1/2 tab daily for 2 days PREDNISONE 73095971271 No Longer Active Adrián Varghese MD Active ZANTAC 75 75 MG TABS take 1 po BID RANITIDINE H CL 78911094779 No Longer Active Uriel BOYD Active MINOCYCLINE HCL 100 MG CAPS take one po BID MIN OCYCLINE HCL 64406745178 Active Adrián Varghese MD Active BENZACLIN 1-5 % GEL apply to skin BID prn for acne 201 05/05/14 CLINDAMYCIN PHOS-BENZOYL PEROX 77623883996 No Longer Active Uriel BOYD Active BENZACLIN 1-5 % GEL apply to skin BID prn for acne 201 05/05/14 BENZACLIN 1-5 % GEL 813233 CLINDAMYCIN PHOS-BENZOYL PEROX Inactive ZANTAC 75 75 MG TABS take 1 po BID ZANTAC 75 75 MG TABS 430397 RANITIDINE HCL Inactive PREDNISONE 20 MG TAB 2 tabs daily for 3 days, 1 t ab daily for 3 days, 1/2 tab daily for 2 days PREDNISONE 20 MG TAB 936203 PREDNISON E Inactive ZITHROMAX 250 MG TAB 2 po today, then 1 po q days 2-5 ZITHROMAX 250 MG TAB 1343037 AZITHROMYCIN Inactive Immunizations Vaccine Administration Date Value [...] - 3141-9 114 [lb_av] Weigh t Measured blood pressure, diastolic - 8462-4 77 mm[Hg] BP jones blood pressure, systolic - 8480-6 126 mm[Hg] BP sys height E&M - 8302-2 60.25 [in_us] Bdy h eight pulse rate E&M - 8867-4 81 /min H eart rate temperature E&M 97.9 [degF] Body temp erature weight E&M - 3141-9 116 [lb_av] Weigh t Measured Encounters Code Encounter Date Provider Facility CPT-88933 Level 3 Est. Patient 09:06:35 CDT Adrián dyson MD [facility] CPT-27143 Level 3 Est. Patient 09:18:45 CDT Adrián dyson MD [facility] CPT-92500 Level 3 Est. Patient 09:13:22 CDT Adrián dyson MD [facility] CPT-93814 Level 3 Est. Patient 18:04:31 CLAY ARTISAN Adrián dyson MD [facility] CPT-98735 Level 4 Est. Patient 14:00:53 CDT Uriel bhatia [facility] CPT-86033 Level 3 Est. Patient 20:00:09 CDT Terry jenkins DO [facility] CPT-10328 Level 3 Est. Patient 08:45:08 CDT Uriel bhatia [facility] CPT-97055 Level 3 Est. Patient 09:09:26 CDT Uriel bhatia [facility]-19078 Level 3 Est. Patient 16:32:31 CDT Adrián dyson MD [facility]-75450 Level 3 Est. Patient 09:35:27 CLAY ARTISAN Norman fuentes [facility] CPT-84349 Level 2 Est. Patient 16:51:37 CLAY ARTISAN Adrián dyson MD [facility] CPT-16986 Level 3 Est. Patient 10:00:11 CLAY ARTISAN Ace Arriaza MD [facility] Procedures Code Procedure Name Date Entry Date Standard Desc ription CPT-J2930 Solu Medrol 125 mg (Methyl Prednisolone Sodium Succinate) 09:43:26 CDT CPT-76038 Abx/Therapy Injection 09:43:26 CDT CPT-J2930 Solu Medrol 125 mg (Methyl Prednisolone Sodium Succinate) 09:05:55 CDT CPT-12113 Abx/Therapy Injection 09:05:55 CDT CPT-55116 Venipuncture Draw Fee 14:01:33 CDT CPT-89638 EKG Trac and Interp 11:22:04 CDT CPT-60675 Venipuncture Draw Fee 10:53:35 CDT CPT-J2930 Solu Medrol 125 mg (Methyl Prednisolone Sodium Succinate) 09:29:26 CDT CPT-17519 Abx/Therapy Injection 09:29:26 CDT CPT-Cryo Cryotherapy 16:51:37 CLAY ARTISAN
--- OUTSIDE RECORDS SUMMARY | 2019-07-22 19:48 | XMS REPORT | Continuity of Care Document ---
Author Organization Unknown Address Unknown Phone Unavailable Allergies There is no data. Medications There is no data. Problems Date Dx Coded Attending Type Code Diagnosis Diagnosed By 11/03/2016 R25.2 Musc le cramps 12/17/2016 F33.2 Depr ession, chronic, severe 01/04/2017 L20.9 Derm atitis, atopic 01/04/2017 N89.9 Vagi nal lesion 07/22/2017 Z11.3 Std screening 07/22/2017 Z30.9 Cont raceptive management 09/29/2017 F33.1 Flaca r depressive disorder, recurrent, moderate 09/29/2017 Z00.00 Pre ventive health care 10/04/2017 Z68.23 Bod y Mass Index 23.0-23.9 Adult 10/04/2017 Z68.52 Bod y Mass Index Percentile Pediatric 5th percentile to less than 85th percentile for age 0305/11/2018 Z68.24 BMI 24-24.9 Procedures There is no data. Results There is no data. Encounters ACCT No. Visit Date/Time Discharge Status Pt. Type Provider Facility Loc./Unit Complaint [id number] 11/27/2018 23:38:44 [facility] Document Registration [id number] 11/26/2018 20:03:25 [facility] Unknown
--- OUTSIDE RECORDS SUMMARY | 2019-07-22 19:48 | XMS REPORT | Clinical Summary ---
Author Author Yovanny, Clarisa Christopher Organization [facility] Address Unknown Phone Unavailable Allergies, Adverse Reactions, [...] 6 hrs prn headache pain TRAMADOL HCL 23614266477 Active Adrián Varghese MD Active ZITHROMAX 250 MG TAB 2 po today, then 1 po q days 2-5 AZITHROMYCIN 34046350422 No Longer Active Adrián Varghese MD Acti ve CLINDAMYCIN PHOSPHATE 2 % CREA apply cream to acne BID prn CLINDAMYCIN PHOSPHATE 22574640877 Active Adrián Varghese MD Active PREDNISONE 20 MG TAB 2 tabs daily for 3 days, 1 t ab daily for 3 days, 1/2 tab daily for 2 days PREDNISONE 08370208027 No Longer Active Adrián Varghese MD Active ZANTAC 75 75 MG TABS take 1 po BID RANITIDINE H CL 20223408200 No Longer Active Uriel BOYD Active MINOCYCLINE HCL 100 MG CAPS take one po BID MIN OCYCLINE HCL 00443428448 Active Adrián Varghese MD Active BENZACLIN 1-5 % GEL apply to skin BID prn for acne 201 05/05/14 CLINDAMYCIN PHOS-BENZOYL PEROX 79698010920 No Longer Active Uriel BOYD Active BENZACLIN 1-5 % GEL apply to skin BID prn for acne 201 05/05/14 BENZACLIN 1-5 % GEL 721052 CLINDAMYCIN PHOS-BENZOYL PEROX Inactive ZANTAC 75 75 MG TABS take 1 po BID ZANTAC 75 75 MG TABS 113507 RANITIDINE HCL Inactive PREDNISONE 20 MG TAB 2 tabs daily for 3 days, 1 t ab daily for 3 days, 1/2 tab daily for 2 days PREDNISONE 20 MG TAB 043252 PREDNISON E Inactive ZITHROMAX 250 MG TAB 2 po today, then 1 po q days 2-5 ZITHROMAX 250 MG TAB [id number] AZITHROMYCIN Inactive Immunizations Vaccine Administration Date Value [...] - 3141-9 103 [lb_av] Weigh t Measured Diagnostic Results Date Name Value Unit Range Description Lab Report: CBC, Comp. Metabolic Panel, Erythrocyte Sed Rate - Chemistry sodium, serum 138 mmol/L 707-215 4600/09/24 potassium, serum 4.2 mmol/L 3.5-5.2 chloride, serum [...] 0.76-1.46 Encounters Code Encounter Date Provider Facility CPT-26053 Level 3 Est. Patient 09:06:35 CDT Adrián dyson MD [facility] CPT-74653 Level 3 Est. Patient 09:18:45 CDT Adrián dyson MD [facility] CPT-86728 Level 3 Est. Patient 09:13:22 CDT Adrián dyson MD [facility] CPT-63126 Level 3 Est. 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 Patient 14:00:53 CDT Uriel bhatia [facility] CPT-01854 Level 3 Est. Patient 20:00:09 CDT Terry jenkins DO [facility] CPT-22410 Level 3 Est. Patient 08:45:08 CDT Uriel bhatia [facility] CPT-40885 Level 3 Est. Patient 09:09:26 CDT Uriel bhatia [facility] CPT-95051 Level 3 Est. Patient 16:32:31 CDT Adrián dyson MD [facility]-61248 Level 3 Est. 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 Ace Arriaza MD [facility] Procedures Code Procedure Name Date Entry Date Standard Desc ription CPT-J2930 Solu Medrol 125 mg (Methyl Prednisolone Sodium Succinate) 09:43:26 CDT CPT-35449 Abx/Therapy Injection 09:43:26 CDT CPT-J2930 Solu Medrol 125 mg (Methyl Prednisolone Sodium Succinate) 09:05:55 CDT CPT-77017 Abx/Therapy Injection 09:05:55 CDT CPT-49043 Venipuncture Draw Fee 14:01:33 CDT CPT-38020 EKG Trac and Interp 11:22:04 CDT CPT-85164 Venipuncture Draw Fee 10:53:35 CDT CPT-J2930 Solu Medrol 125 mg (Methyl Prednisolone Sodium Succinate) 09:29:26 CDT CPT-61661 Abx/Therapy Injection 09:29:26 CDT CPT-Cryo Cryotherapy 16:51:37 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
--- OUTSIDE RECORDS SUMMARY | 2019-07-22 19:48 | XMS REPORT | Clinical Summary ---
Author Author Yovanny, Clarias Christopher Organization [facility] Address Unknown Phone Unavailable Allergies, Adverse [...] qday for depresion and anxiety. CITALOPRAM HYDROBROMIDE 73289129668 Active Adrián Varghese MD Active ULTRAM 50 MG TAB take 1 tab po q 6 hrs prn headache pain TRAMADOL HCL 93709529402 No Longer Active Adrián Varghese MD Acti ve CLINDAMYCIN PHOSPHATE 2 % CREA apply cream to acne BID prn 06/14 CLINDAMYCIN PHOSPHATE 68395446430 No Longer Active Adrián Joseph Active MINOCYCLINE HCL 100 MG CAPS take one po BID MINOCYCLINE HCL 48921989259 No Longer Active Adrián Varghese MD Acti ve TRI-SPRINTEC 0.18/0.215/0.25 MG-35 MCG TABS 1 po qd as directed 201 07/04/00 NORGESTIM-ETH ESTRAD TRIPHASIC 38271406588 Active Adrián Varghese MD Active ZITHROMAX 250 MG TAB 2 po today, then 1 po q days 2-5 AZITHROMYCIN 47756233512 No Longer Active Adrián Varghese MD Acti ve ZITHROMAX 250 MG TAB 2 po today, then 1 po q days 2-5 AZITHROMYCIN 06636529167 No Longer Active Adrián Varghese MD Acti ve PREDNISONE 20 MG TAB 2 tabs daily for 3 days, 1 t ab daily for 3 days, 1/2 tab daily for 2 days PREDNISONE 77394607155 No Longer Active Adrián Varghese MD Active ZANTAC 75 75 MG TABS take 1 po BID RANITIDINE H CL 94312708236 No Longer Active Uriel BOYD Active BENZACLIN 1-5 % GEL apply to skin BID prn for acne 201 05/05/14 CLINDAMYCIN PHOS-BENZOYL PEROX 91419234723 No Longer Active Uriel BOYD Active BENZACLIN 1-5 % GEL apply to skin BID prn for acne 201 05/05/14 BENZACLIN 1-5 % GEL 131367 CLINDAMYCIN PHOS-BENZOYL PEROX Inactive MINOCYCLINE HCL 100 MG CAPS take one po BID MINOCYCLINE HCL 100 MG CAPS 768449 MINOCYCLINE HCL Inactive CLINDAMYCIN PHOSPHATE 2 % CREA apply cream to acne BID prn 06/14 CLINDAMYCIN PHOSPHATE 2 % CREA 827242 CLINDAMYCIN PHOSP HATE Inactive ULTRAM 50 MG TAB take 1 tab po q 6 hrs prn headache pain ULTRAM 50 MG TAB 693707 TRAMADOL HCL Inactive ZANTAC 75 75 MG TABS take 1 po BID ZANTAC 75 75 MG TABS 682523 RANITIDINE HCL Inactive PREDNISONE 20 MG TAB 2 tabs daily for 3 days, 1 t ab daily for 3 days, 1/2 tab daily for 2 days PREDNISONE 20 MG TAB 440790 PREDNISON E Inactive ZITHROMAX 250 MG TAB 2 po today, then 1 po q days 2-5 ZITHROMAX 250 MG TAB 0087249 AZITHROMYCIN Inactive ZITHROMAX 250 MG TAB 2 po today, then 1 po q days 2-5 ZITHROMAX 250 MG TAB 5593875 AZITHROMYCIN Inactive Immunizations Vaccine Administration Date Value [...] 142-424 Encounters Code Encounter Date Provider Facility CPT-79972 Level 4 Est. Patient 13:54:09 CDT Adrián dyson MD [facility]-16425 Level 3 Est. Patient 09:22:14 CDT Adrián dyson MD [facility]-24042 Level 3 Est. Patient 08:59:31 CDT Adrián dyson MD [facility]-57859 Level 3 Est. Patient 11:58:31 CDT Adrián dyson MD [facility]-31728 Level 3 Est. Patient 09:06:35 CDT Adrián dyson MD [facility]-44302 Level 3 Est. Patient 09:18:45 CDT Adrián dyson MD [facility]-94786 Level 3 Est. Patient 09:13:22 CDT Adrián dyson MD [facility]-43004 Level 3 Est. Patient 18:04:31 [employer] HOME MOTHER Adrián dyson MD [facility]-75249 Level 4 Est. Patient 14:00:53 CDT Uriel bhatia [facility]-12634 Level 3 Est. Patient 20:00:09 CDT Terry jenkins DO [facility]-56261 Level 3 Est. Patient 08:45:08 CDT Uriel bhatia [facility]-62271 Level 3 Est. Patient 09:09:26 CDT Uriel bhatia [facility]-14420 Level 3 Est. Patient 16:32:31 CDT Adrián dyson MD [facility]-60266 Level 3 Est. Patient 09:35:27 [employer] C[employer] HOME MOTHER Norman fuentes [facility]-37464 Level 2 Est. Patient 16:51:37 [employer] C[employer] HOME MOTHER Adrián dyson MD [facility] CPT-22073 Level 3 Est. Patient 10:00:11 [employer] C[employer] MOTHER Ace Arriaza MD [facility] Procedures Code Procedure Name Date Entry Date Standard Desc ription CPT-61414 First Vx - Ix admin via ID I M or jet injects without counseling by physician 16:04:17 [employer] C[employer] HOME MOTHER CPT-65199 Gardasil 9 Intramuscular Suspension 1 6:04:17 [employer] MOTHER CPT-39032 Venipuncture Draw Fee 09:40:26 CDT CPT-56250 Will Spot - LAB USE ONLY 09:40:26 CDT 11/30 CPT-80655 CBC with Diff - LAB USE ONLY 09:40:26 CDT 2 CPT-17916 Addl Vx - Ix admin via ID IM or jet injects without counseling by physician 09:40:21 CDT CPT-96303 Menactra Intramuscular Injectable 09:40:21 CDT CPT-32106 Addl Vx - Ix admin via ID IM or jet injects without counseling by physician 09:40:21 CDT CPT-31030 Gardasil 9 Intramuscular Suspension 0 9:40:21 CDT CPT-76924 First Vx - Ix admin via ID I M or jet injects without counseling by physician 09:40:21 CDT CPT-98766 Havrix Intramuscular Suspension 720 EL U /0.5ML 09:40:21 CDT CPT-J2930 Solu Medrol 125 mg (Methyl Prednisolone Sodium Succinate) 09:43:26 CDT CPT-36466 Abx/Therapy Injection 09:43:26 CDT CPT-J2930 Solu Medrol 125 mg (Methyl Prednisolone Sodium Succinate) 09:05:55 CDT CPT-74225 Abx/Therapy Injection 09:05:55 CDT CPT-40952 Venipuncture Draw Fee 14:01:33 CDT CPT-99142 EKG Trac and Interp 11:22:04 CDT CPT-14881 Venipuncture Draw Fee 10:53:35 CDT CPT-J2930 Solu Medrol 125 mg (Methyl Prednisolone Sodium Succinate) 09:29:26 CDT CPT-95228 Abx/Therapy Injection 09:29:26 CDT CPT-Cryo Cryotherapy 16:51:37 DAY CARE HOME MOTHER
--- OUTSIDE RECORDS SUMMARY | 2019-07-22 19:48 | XMS REPORT | Clinical Summary ---
Author Author Yovanny, Clarisa Christopher Organization [facility] Address Unknown Phone Unavailable Allergies, Adverse Reactions, [...] 6 hrs prn headache pain TRAMADOL HCL 29031678598 Active Adrián Varghese MD Active ZITHROMAX 250 MG TAB 2 po today, then 1 po q days 2-5 AZITHROMYCIN 14866165322 No Longer Active Adrián Varghese MD Acti ve CLINDAMYCIN PHOSPHATE 2 % CREA apply cream to acne BID prn CLINDAMYCIN PHOSPHATE 23814217324 Active Adráin Varghese MD Active PREDNISONE 20 MG TAB 2 tabs daily for 3 days, 1 t ab daily for 3 days, 1/2 tab daily for 2 days PREDNISONE 84522925567 No Longer Active Adrián Varghese MD Active ZANTAC 75 75 MG TABS take 1 po BID RANITIDINE H CL 51327762764 No Longer Active Uriel BOYD Active MINOCYCLINE HCL 100 MG CAPS take one po BID MIN OCYCLINE HCL 66011100202 Active Adrián Varghese MD Active BENZACLIN 1-5 % GEL apply to skin BID prn for acne 201 05/05/14 CLINDAMYCIN PHOS-BENZOYL PEROX 57551631544 No Longer Active Uriel BOYD Active BENZACLIN 1-5 % GEL apply to skin BID prn for acne 201 05/05/14 BENZACLIN 1-5 % GEL 794969 CLINDAMYCIN PHOS-BENZOYL PEROX Inactive ZANTAC 75 75 MG TABS take 1 po BID ZANTAC 75 75 MG TABS 725817 RANITIDINE HCL Inactive PREDNISONE 20 MG TAB 2 tabs daily for 3 days, 1 t ab daily for 3 days, 1/2 tab daily for 2 days PREDNISONE 20 MG TAB 538409 PREDNISON E Inactive ZITHROMAX 250 MG TAB 2 po today, then 1 po q days 2-5 ZITHROMAX 250 MG TAB 6531692 AZITHROMYCIN Inactive Immunizations Vaccine Administration Date Value [...] Measured Encounters Code Encounter Date Provider Facility CPT-50166 Level 3 Est. Patient 09:06:35 CDT Adrián dyson MD [facility] CPT-01734 Level 3 Est. Patient 09:18:45 CDT Adrián dyson MD [facility] CPT-82299 Level 3 Est. Patient 09:13:22 CDT Adrián dyson MD [facility] CPT-48141 Level 3 Est. 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 Patient 14:00:53 CDT Uriel bhatia [facility] CPT-30793 Level 3 Est. Patient 20:00:09 CDT Terry jenkins DO [facility] CPT-66602 Level 3 Est. Patient 08:45:08 CDT Uriel bhatia [facility] CPT-03275 Level 3 Est. Patient 09:09:26 CDT Uriel bhatia [facility]-60146 Level 3 Est. Patient 16:32:31 CDT Adrián dyson MD [facility]-75269 Level 3 Est. 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 Patient 16:51:37 CLASSICS PROFESSOR Adrián dyson MD [facility] CPT-39299 Level 3 Est. Patient 10:00:11 CLASSICS PROFESSOR Ace Arriaza MD [facility] Procedures Code Procedure Name Date Entry Date Standard Desc ription CPT-J2930 Solu Medrol 125 mg (Methyl Prednisolone Sodium Succinate) 09:43:26 CDT CPT-63819 Abx/Therapy Injection 09:43:26 CDT CPT-J2930 Solu Medrol 125 mg (Methyl Prednisolone Sodium Succinate) 09:05:55 CDT CPT-32626 Abx/Therapy Injection 09:05:55 CDT CPT-56877 Venipuncture Draw Fee 14:01:33 CDT CPT-45799 EKG Trac and Interp 11:22:04 CDT CPT-84131 Venipuncture Draw Fee 10:53:35 CDT CPT-J2930 Solu Medrol 125 mg (Methyl Prednisolone Sodium Succinate) 09:29:26 CDT CPT-70658 Abx/Therapy Injection 09:29:26 CDT CPT-Cryo Cryotherapy 16:51:37 CLASSICS PROFESSOR
[2019-07-22 19:52] LABS: BASOPHILS % (AUTO) 0 % (0-10); EOSINOPHILS % (AUTO) 0 % (0-10); HEMATOCRIT 38 % (35-52); LYMPHOCYTES # (AUTO) 1.1 X 10^3 (1.0-4.0); LYMPHOCYTES % (AUTO) 10 % (12-44); MEAN CORPUSCULAR HEMOGLOBIN 30 PG (25-34); MEAN CORPUSCULAR HGB CONC 34 G/DL (32-36); MEAN CORPUSCULAR VOLUME 88 FL (80-99); MEAN PLATELET VOLUME 10.4 FL (7.4-10.4); MONOCYTES # (AUTO) 0.8 X 10^3 (0.0-1.0); MONOCYTES % (AUTO) 7 % (0-12); NEUTROPHILS # (AUTO) 9.5 X 10^3 (1.8-7.8); NEUTROPHILS % (AUTO) 83 % (42-75); PLATELET COUNT 277 10^3/uL (130-400); RED CELL DISTRIBUTION WIDTH 13.9 % (10.0-14.5); WHITE BLOOD COUNT 11.4 10^3/uL (4.3-11.0)
== END 2019-07-22 20:20 | disposition home or self-care (01) ==
LOC: ER 19:19
DX: B34.9 Viral infection, unspecified (principal)
CPT/HCPCS: 36415; 85025; 86141; 86308; 87635; 87804